=== PATIENT | female | born 1990 | race Caucasian/White ===

== ENCOUNTER 2016-05-09 18:28 | Outpatient (CLI) | payer MEDICAID ==
[~2016-05-09] VITALS: Ht 157.5 cm; Wt 72.6 kg
[~2016-05-09 18:28] MED LIST: BUPROPION HCL300 MG PO; CLONAZEPAM 1MG T1 MG PO; IRON90 MG PO; KEFLEX 500MG.500 MG PO; KLONOPIN1 MG PO; NORCO 325 MG-51 TAB PO; PERCOCET 5/3251 EACH PO; PERCOCET1 TA1 PO; PERCOCET1 TAB PO; PHENERGAN25 M3 PO; PRENATAL PLUS1 TA1 PO; WELLBUTRIN 100100 M1 PO; WELLBUTRIN SR100 MG PO; ZOLOFT100 MG PO
[2016-05-09 18:42] VITALS: BP 114/75
[2016-05-16] MEDS ORDERED: PHENERGAN25 M3 PO (17:20)
[2016-05-16] MEDS ORDERED: FLEXERIL10 MG PO (23:07)
[2016-05-16] MEDS ORDERED: PREDNISONE 20MG20 MG PO (23:07)
[2016-05-16] MEDS ORDERED: NORCO 325 MG-51 TAB PO (23:07)
== END 2016-05-09 18:53 | disposition home or self-care (01) ==
LOC: OB 18:28 → OBOUT 18:28
DX: O26.893 Other specified pregnancy related conditions, third trimester (principal); Z3A.30 30 weeks gestation of pregnancy; R10.31 Right lower quadrant pain; N20.0 Calculus of kidney

== ENCOUNTER 2016-05-25 13:05 | Outpatient (CLI) | payer MEDICAID ==
[~2016-05-25] VITALS: Ht 162.6 cm; Wt 88.9 kg
[~2016-05-25 13:05] MED LIST changes: +FLEXERIL10 MG PO; +PREDNISONE 20MG20 MG PO
[2016-05-25 13:34] VITALS: BP 126/79
[2016-05-25 14:09] LABS: URINE BILIRUBIN - DIPSTICK NEGATIVE (NEG); URINE BLOOD 3+ (NEG)
--- NOTE | 2016-05-25 15:39 | HISTORY AND PHYSICAL REPORT ---
Demographics: Admit date: 05/25/16 Chief complaint: BACK PAIN PRIMARY DIAGNOSIS: IUP 33 2/7 WEEKS (SUSPECTED RENAL CALCULI) Allergies: Coded Allergies: Penicillins (S-DIFF. BREATHING 03/03/16) lamotrigine (From LAMICTAL) (02/18/16) morphine (02/18/16) History of present illness: History of present illness: 25 Y/O WITH LMP 10/10/15 WITH EDC 07/11/2016 @ 33 4/7WKS PRESENTS TO L&D WITH C/O RIGHT SIDED BACK PAIN. PT STATES SHE HAS AN EXTENSIVE H/O KIDNEY STONES. STATES SHE HAS AN H/O ENLARGED RIGHT KIDNEY. STATES SHE'S UNSUREIF THIS CURRENT PAIN SHE'S HAVING IS CONTRACTIONS VS KIDNEY PAIN. PT STATES SHE PASSED A STONE ABOUT 2WEEKS AGO. PT NOTES GOOD FM WITHOUT VB. LAST INTERCOURSE 2 DAYS AGO. Past medical history: Family HX Family Hx Insignificant Yes Immunization HX DT/Tetanus Unknown Flu 2015-FSN Pneumonia Refuses General CAD? No Angina: No OR: No Hypertension? No Hyperlipidemia? No CHF? No DVT? No PE? No COPD? No Asthma? No Anemia? No GERD? No Gastric ulcers? No GI Bleed? No Hernia? No Thyroid Problems? No Hypothyroidism? No CVA? No Seizures? No Diabetes? No Renal Insuffiency? No UTI? Yes Stones? Yes BPH? No GB Disease: No Nephritic Syndrome? No Asplenia? No Hepatitis? No Sickle Cell Disease? No Arthritis? No Migraines? No Cataracts? No Glaucoma? No MRSA? No HIV? No TB? No Anxiety? No Depression? No Cancer? No More? No Past Surgical HX Previous Surgery?Y LITHOTRIPSY X2 LEFT PARTIAL KNEE T&A Current home meds: Active Scripts PROMETHAZINE HCL (Phenergan 25MG Tab (Geq)) 25 MG PO Q6HP PRN N/V #15 TAB Prov: 05/16/16 Reported Medications IRON (Iron) 18 MG PO DAILY SERTRALINE HYDROCHLORIDE (Zoloft 100MG) 200 MG PO DAILY Clonazepam (Clonazepam 1MG) 1 MG PO DAILY BUPROPION HCL SR (Wellbutrin SR 100MG) 100 MG PO DAILY MULTIVIT-MIN W/FE-FA ( Multivitamin Tablet) 1 TAB PO DAILY Social Hx: Smoking HX Tobacco No Alcohol Alcohol: No Hx of Drug Use Drug Use? No Patien't marital status is Patient's support system is good Review of systems: Constitutional No: no symptoms reported. Respiratory No: no symptoms reported. Cardiovascular No no symptoms reported Gastrointestinal/Abdominal No no symptoms reported Genitourinary dysuria, hematuria, pain, pelvic pain, . No: discharge, abnormal vaginal bleeding, vaginal discharge, frequency, hesitancy, dyspareunia, hx stds, labia tenderness. Musculoskeletal back pain. No: gout, joint pain, joint swelling, muscle pain, muscle stiffness, neck pain. Skin No: no symptoms reported. Neurological No: see HPI. Psychiatric No: no symptoms reported. Exam: Lab data for last 24 hours: Laboratory Tests 05/25/16 1312: Urine Color ORANGE, Urine Appearance CLOUDY, Urine pH 6.0, Ur Specific [place] 1.010, Urine Protein NEGATIVE, Urine Ketones NEGATIVE, Urine Blood 3+ H, Urine Nitrate NEGATIVE, Urine Bilirubin NEGATIVE, Urine Urobilinogen 0.2, Ur Leukocyte Esterase NEGATIVE, Urine RBC 20-50, Ur Squamous Epith Cells 3-5, Urine Bacteria 2+, Urine Glucose NEGATIVE Microbiology 05/25 1312 URINE CC: Urine Culture - RECD Admission vital signs: 1ST Vital Signs Result Date Time B/P 126/79 05/25 1334 Temp 98.6 05/25 1334 Pulse 103 05/25 1334 Resp 18 05/25 1334 Exam General appearance: normal appearance Eyes: normal exam Cardiovascular: normal exam Respiratory: normal exam ABD: normal exam Genitourinary: hematuria, urine cloudy, urine concentrated Extremities: normal exam Musculoskeletal: back pain (+CVAT) Skin: normal exam Neuro: normal exam Additional information: SSE/SVE: NO BLEEDING NOTED, CERVIX CLOSED/THICK/HIGH Plan: Problem List 1. 2. Hematuria 3. Renal colic on right side 4. Right flank pain 5. Kidney stone Plan: BACK PAIN WITH CVAT, I SUSPECT THIS IS RECURRENCE OF PT'S RENAL CALCULI. RENAL U /S BEING PERFORMED/RESULTS PENDING. IV HYDRATION. PAIN MANAGMENT. I WOULD RECOMMEND REFERRAL TO UROLOGIST. PT MAY BENEFIT FROM STENT PLACEMENT? 33 4/7WKS-CAT I TRACING, ACONTRACTILE, NO EVIDENCE OF PTL at [phone]
[2016-05-25 16:08] LABS: HEMOGLOBIN 12.3 g/dL (12.2-16.2); LYMPH # 2.3 K/mm3 (0.7-4.5); LYMPH % 17.3 % (10-50.0)
[2016-05-25 17:05] LABS: ABO BLOOD TYPE O; RH BLOOD TYPE NEGATIVE
--- NOTE | 2016-05-28 08:15 | RADIOLOGY REPORT PS360 ---
US [id number] ORDERING PHYSICIAN : ROLANDO ZARATE MD PATIENT AGE: 25 years GENDER: Female INDICATION: KIDNEY DTONE Patient 34 weeks right flank pain. HISTORY of stones TECHNIQUE: Ultrasound kidneysBH COMPARISON: Previous ultrasound kidneys 03/31/2016 FINDINGS Right kidney: Normal size 12 cm in length x 5.8 cm AP. Cortex well-maintained. Prominent hydronephrosis at right kidney with generous dilatation of right pelvicalyceal system right renal pelvis. Similar to previous study Proximal most right ureter is included and dilated as well. The mid and distal ureter were not imaged or could not be imaged . The degree of hydronephrosis is similar to images from previous 03/31/2016 ultrasound kidneys. Stable Left kidney. Appears normal. No hydronephrosis. 10.9 cm in length x 4.8 cm.. Good color Doppler flow both kidneys. Limited imaging of the spleen is unremarkable. IMPRESSION: .. Hydronephrosis of the right kidney is again noted- similar to 04/30/2016.. No appreciable change
--- NOTE | 2016-05-28 08:25 | RADIOLOGY REPORT PS360 ---
US PREG [id number], US BIOPHYSICAL PROFILE, SD RATIO UMBILICAL ARTERY INDICATION: KIDNEY DTONE TECHNIQUE: ultrasound transabdominal scanning/ BH COMPARISON: No previous relevant studies FINDINGS Single viable intrauterine gestation. Cephalic position. Low-lying anterior placenta anterior. No previa. No abruption The cervix appears measures up to 3.5 cm in length The study was primarily performed for placental localization and biophysical profile Only Limited survey performed & was unremarkable per technologist notes. & on the submitted images as in PACS No discrete anomalies identified today's limited survey imaging by technologist Active fetus. Three-vessel cord with satisfactory umbilical cord insertion. Stomach and bladder identified. 4 chamber heart identified . date measurements not performed, but this and detailed survey performed on a 03/11/2006, for the 20 week anatomy scan Heart rate 149 BIOPHYSICAL PROFILE 8 of possible 8 points. +2 scoring for each category: breathing, movement, tone, fluid volume. SD RATIO 2.6 . IMPRESSION: Single viable intrauterine gestation in cephalic presentation Anterior placenta no previa . Active fetus with biophysical profile 8 of possible 8 points..
== END 2016-05-25 18:25 | disposition home or self-care (01) ==
LOC: OB 13:05 → OBOUT 13:05 → OB 13:06 → OBOUT 18:25
PROVIDERS: Obstetrics & Gynecology
DX: O47.03 False labor before 37 completed weeks of gestation, third trimester (principal); Z3A.32 32 weeks gestation of pregnancy
CPT/HCPCS: J2405

== ENCOUNTER 2016-08-30 18:15 | Emergency (ER) | payer MEDICAID ==
[~2016-08-30] VITALS: Ht 162.6 cm; Wt 79.4 kg
[~2016-08-30 18:15] MED LIST changes: +CIPRO 500MG TA500 MG PO
--- NOTE | 2016-08-30 18:21 | Emergency Room Report ---
History of Present Illness Time Seen by [id number] Presenting Problem in Triage Pt arrived: Presenting Problem: Onset of symptoms date/time:/ or onset unknown for: Treatment Prior to Arrival: OPTOMETRIC AIDE Provided by: Sepsis Risk Assessment: Temp: B/P: MAP: Pulse: Resp: Recent fever? Clinical Suspician of Infection? Mental Status: Sepsis Risk: Have you (or family members/close friends) recently traveled outside the [place]? If Yes, where/when: Have you had exposure to infectious disease within the past month? TB? Other? Specify: Source patient, RN notes reviewed Exam Limitations no limitations Comment Pt comes to the ED with a history of kidney stones and says she has right flank pain. I will check her urine here and blood work to make sure her kidney function is normal and if it is, I will give her a shot of medicine for pain and nausea but she will have to go someplace else to be evaluated with a CT scan as our CT scanner is not available at this time and will not be up and running until later tomorrow She was treated for a UTI here last week and a CT scan at that time looked like she may have passed a kidney stone... CT showed a mildly dilated right ureter but no visible stones in kidneys or bladder at that time. Cardiac Chest Pain Chest pain indicative of cardiac No ALLERGIES Coded Allergies: Penicillins (S-DIFF. BREATHING 03/03/16) lamotrigine (From LAMICTAL) (02/18/16) morphine (02/18/16) Home Medications Active Scripts Ciprofloxacin HCl (Cipro 500MG TAB) 500 MG PO BID #14 TAB Prov: 08/25/16 Reported Medications SERTRALINE HYDROCHLORIDE (Zoloft 100MG) 200 MG PO DAILY Clonazepam (Clonazepam 1MG) 1 MG PO DAILY BUPROPION HCL SR (Wellbutrin SR 100MG) 100 MG PO DAILY (Cullen ZHAO,Alisa) History Medical History General CAD? No Angina: No ND: No Hypertension? No Hyperlipidemia? No CHF? No DVT? No PE? No COPD? No Asthma? No Anemia? No GERD? No Gastric ulcers? No GI Bleed? No Hernia? No Thyroid Problems? No Hypothyroidism? No CVA? No Seizures? No Diabetes? No Renal Insuffiency? No End Stage Renal Disease? No UTI? Yes Stones? Yes BPH? No GB Disease: No Nephritic Syndrome? No Asplenia? No Hepatitis? No Sickle Cell Disease? No Arthritis? No Migraines? No Cataracts? No Glaucoma? No MRSA? No HIV? No TB? No Anxiety? No Depression? No Cancer? No More? No Immunization Hx DT/Tetanus Unknown Flu 2016-FSN Pneumonia Refuses Surgical Hx Previous Surgery?Y LITHOTRIPSY X2 LEFT PARTIAL KNEE T&A Family History Family Hx Diabetes No CAD No Hypertension No Hyperlipidemia No Cancer No TB No Social History Smoking Hx Packs/day N/A Alcohol Alcohol: No (Alisa Berman MD) Review of Systems All Other Systems Reviewed and Negative Constitutional see HPI Respiratory denies no symptoms reported, denies see HPI Genitourinary see HPI. (Alisa Berman MD) Physical Exam Vital Signs Vital Signs Date Time Temp Pulse Resp B/P Pulse O2 O2 Flow FiO2 Ox Delivery Rate 08/30 2101 69 18 134/67 100 08/30 2042 98.7 94 18 136/73 96 08/30 1945 99.1 126 24 170/109 96 08/30 1927 20 08/30 1820 99.1 100 18 151/84 98 - WBC >12,000 or <4,000 or 10% bands? 2 or more SIRS Criteria Met? B/P:151/84 MAP:106 Creatinine >2.0? UA output<0.5ml/kg/hr for 2 hrs? Platelet count >100,000? Lactate >2.0mmol/1? INR >1.2 or PTT > than 60 sec? Evidence of Organ Dysfunction? Provider documented clinical suspician of infection? N Sepsis Criteria Count: 1 Sepsis Risk: Low Sepsis Risk General Appearance moderate distress, has been "crying" in the room but no tears at all Respiratory Status No: respiratory distress. Cardiovascular normal exam Peripheral Pulses Pulses normal No Back right flank pain Neurologic alert, normal exam (Alisa Berman MD) Medical Decision Making LABS/Meds/Orders Pt receiving controlled substance in ED? No Adrien was queried for this patient? Yes Reference #: [id number] Results/Orders Laboratory Tests 08/30/16 1915: Sodium 139, Potassium 3.7, Chloride 105, Carbon Dioxide 23, BUN 17, Creatinine 1.1 H, Estimated Creat Clear 97, Estimated GFR (MDRD) 60, Glucose 95, Calcium 8.8, Total Bilirubin 0.3, AST 22, ALT 34, Alkaline Phosphatase 82, Total Protein 8.2, Albumin 3.8, Globulin 4.4 H, Albumin/Globulin Ratio 0.9 L, WBC 9.6, RBC 3.96 L, Hgb 10.8 L, Hct 34.5 L, MCV 87.0, RDW 16.1, Plt Count 343, MPV 5.9 L , Gran % 72.0, Gran # 6.9, Lymphocytes % 20.9, Monocytes % 4.9, Eosinophils % 1.8, Basophils % 0.4, Lymphocytes # 2.0, Monocytes # 0.5, Eosinophils # 0.2, Basophils # 0.0, PUBS MCHC 31.3 L, MCH 27.2 08/30/161824: Opiates Screen NEGATIVE, Urine Methadone Screen NEGATIVE, Barbiturates NEGATIVE, Phencyclidine Screen NEGATIVE, Amphetamines Screen NEGATIVE, Benzodiazepines Screen POSITIVE H, Cocaine Screen NEGATIVE, Marijuana (THC) Screen NEGATIVE, Urine Color RED, Urine Appearance CLOUDY, Urine pH 6.0, Ur Specific [place] 1.025, Urine Protein TRACE H, Urine Ketones NEGATIVE, Urine Blood 3+ H, Urine Nitrate NEGATIVE, Urine Bilirubin NEGATIVE, Urine Urobilinogen 0.2, Ur Leukocyte Esterase NEGATIVE, Urine RBC TNTC, Ur Squamous Epith Cells 5-10, Urine Glucose NEGATIVE Current Medication Orders Sig/Emerald Start time Last Medication Dose Route Stop Time Status Admin Ondansetron HCl 4 MG ONCE ONE 08/30 1930 DC 08/30 SL 08/30 Ketorolac 0 .STK-MED ONE 08/30 1924 DC Tromethamine .ROUTE Ondansetron HCl 0 .STK-MED ONE 08/31 1923 DC .ROUTE Ketorolac 30 MG ONCE ONE 08/30 190 DC 08/30 Tromethamine IM 08/30 Ondansetron HCl 4 MG ONCE ONE 08/30 1900 CAN IV 08/30 1900 Orders Procedure Date/time Status KUB (SINGLE VIEW) 08/30 1924 Active DRUG ABUSE SCREEN (10) 08/30 1837 Complete CBC WITH AUTO DIFF 08/30 1837 Complete CHEM 12 PROFILE 08/30 1837 Complete URINALYSIS/COMPLETE 08/30 183 Complete URINE 08/31 1831 Complete Progress - 9:00 PM: The patient signed out AGAINST MEDICAL ADVICE while Dr. Berman was still here and he handled the disposition. I did not see the patient and was not involved in her care. (Jay Alonso MD) Departure Departure Time of Disposition 1942 Clinical Impression Primary Impression: Right flank pain Secondary Impressions: Hematuria Condition STABLE Referrals Mulugeta Lambert MD (Family): 2 Days-Call Office Patient Instructions Blood in Urine, DI for Flank Pain, DI for Hematuria Additional Instructions Pt advised that I can not see a stone on her KUB and I can not do a CT of the Abd and Pelvis as the CT scanner is down. I will call whichever facility she wishes to get a CT scan done there. She has decided she will go to [facility] to get a CT of Abd and Pelvis to rule out a stone. Will then be transferred back here for reading of the scan. She is agreeable to that will sign out to Dr Alonso Discharge Counseling Counseled pt/family regarding diagnosis, test results, follow up needs ED Critical Care Critical Care No If Critical Care minutes are documented, the time involved in the performance of seperately reportable procedures was not counted toward critical care time documented. I directly delivered medical care to this critically ill and/or injured patient. Timely evaluation and treatment was necessary to address the significant organ system(s) dysfunction present in this patient. (Alisa Berman MD) Departure Disposition Against Medical Advice (Jay Alonso MD) at 1949 at [id number]
[2016-08-30 18:37] LABS: URINE BILIRUBIN - DIPSTICK NEGATIVE (NEG); URINE BLOOD 3+ (NEG)
[2016-08-30 19:22] LABS: HEMOGLOBIN 10.8 g/dL (12.2-16.2); LYMPH % 20.9 % (10-50.0)
[2016-08-30 19:53] LABS: AMPHETAMINES/METAMPHETAMINES NEGATIVE ng/mL (<1000)
[2016-08-30 21:01] VITALS: BP 134/67
--- NOTE | 2016-08-31 12:19 | RADIOLOGY REPORT PS360 ---
KUB (SINGLE VIEW) Ordering Physician: Jay Alonso MD Patient Age: 25 years: Female HISTORY: right flank pain TECHNIQUE: KUB AP abdomen CT abdomen from last week 08/25/2016. FINDINGS Moderate stool is seen throughout the colon most prominent in generous stool is seen at the right colon which may reflect mild constipation here. Overall unimpressive abdomen with nonspecific bowel gas pattern. No renal or ureteral calculi. Phleboliths pelvic basin. IMPRESSION: No acute findings 1. Nonspecific bowel gas pattern. Only noting generous stool right colon 2. Phleboliths pelvic basin. No renal calculi evident
--- OUTSIDE RECORDS SUMMARY | 2016-09-01 01:22 | External Medical Summary Rpt ---
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 Unavailable Unavailable [place], [facility] Unavailable Unavailable [facility], [facility] CARUSO, CARUSO Unavailable Unavailable DANIELLE, DANIELLE Unavailable Unavailable BROWN MARICEL, CHRISTINE MARICEL Unavailable Unavailable FOY, FOY Unavailable Unavailable [place] Unavailable Unavailable NUNUNUNU MITCHELL Unavailable Unavailable [facility]available [facility] Unavailable Unavailable INC, [facility] HEMMER, HEMMER Unavailable Unavailable MARVIN WONG Unavailable Unavailable [facility] Unavailable Unavailable MEDICAL C, [facility], Unavailable Unavailable [facility] MOJICA, MOJICA Unavailable Unavailable [facility] Unavailable [facility]available [facility] Unavailable Unavailable [facility], [facility] BOWMAN, BOWMAN Unavailable Unavailable [facility], Unavailable Unavailable [facility], [facility] Unavailable Unavailable PLL[facility], [facility] ZULEMA KELVIN, ZULEMA Unavailable Unavailable [facility] Unavailable Unavailable [facility]PORAT, [facility] PETRONA, PETRONA Unavailable Unavailable SOTINGEANU, Unavailable Unavailable SOTINGEANU Purpose Continuity of Care Document - 03-22-2012 through 2016 Problems Code Diagnosis DOS Provider Status R300 DYSURIA 07-17-2016 [facility] Z391 ENCNTR FOR 07-17-2016 [facility] CARE & HEALTH EXAMINATION MEDICAL LACTATING GROUP MOTHER Z392 ENCOUNTER 07-17-2016 NONDENOMINATIONAL FOR ROUTINE HEALTH MEDICAL FOLLOW-UP GROUP O133 GESTATIONAL 06-25-2016 NONDENOMINATIONAL HTN W/O ANESTHESIA SIG PSC PROTEINURIA THIRD TRI O80 ENCOUNTER 06-25-2016 NONDENOMINATIONAL FOR ANESTHESIA FULL-TERM PSC UNCOMPLICAT ED DELIVERY Z370 SINGLE LIVE 06-25-2016 NONDENOMINATIONAL ANESTHESIA PSC O134 GESTATIONAL 06-24-2016 NONDENOMINATIONAL HTN W/O HEALTH SIGNIF [place] PROTEINURIA COMP CB [id number] MAT CARE 06-24-2016 NONDENOMINATIONAL OT HEALTH KNWN/SUSP MEDICAL POOR FTL GROUP GRTH 3RD TRI UNS O665 ATTEMPTED 06-24-2016 NONDENOMINATIONAL APPLICATION HEALTH VACUUM MEDICAL EXTRACTOR & GROUP FORCEPS [id number] L & D COMP 06-24-2016 NONDENOMINATIONAL CORD AROUND HEALTH NECK W/O [place] COMPRS NA/UNS Z2913 ENCOUNTER 06-24-2016 NONDENOMINATIONAL FOR HEALTH PROPHYLACTI [place] C RHO IMMUNE GLOBULIN Z3A36 36 WEEKS 06-24-2016 NONDENOMINATIONAL GESTATION HEALTH OF MEDICAL GROUP O163 UNSPECIFIED 06-20-2016 NONDENOMINATIONAL MATERNAL HEALTH HYPERTENSIO [place] N 3RD TRIMESTER L02857 OTHER SPEC 06-20-2016 [facility]ONDENOMINATIONAL HEALTH RELATED MEDICAL COND 3RD GROUP TRIMESTER O288 OTH 06-20-2016 NONDENOMINATIONAL ABNORMAL HEALTH FIND ON [place] SCREENING MOTHER [id number] MATERNAL 06-20-2016 NONDENOMINATIONAL CARE OT HEALTH SPEC MEDICAL PROB 3RD GROUP TRI NA/UNS G01086 PERSONAL 06-20-2016 NONDENOMINATIONAL HISTORY OF HEALTH URINARY [place] CALCULI Z3A35 35 WEEKS 06-17-2016 [facility] GROUP O289 UNS 06-13-2016 NONDENOMINATIONAL ABNORMAL HEALTH FIND ON [place] SCREENING MOTHER [id number] OLIGOHYDRAM 06-13-2016 NONDENOMINATIONAL NIOS THIRD HEALTH TRIMESTER MEDICAL NA/UNS GROUP E669 OBESITY 06-10-2016 NONDENOMINATIONAL UNSPECIFIED HEALTH MEDICAL GROUP Z3A34 34 WEEKS 06-10-2016 [facility]ENOMINATIONAL GESTATION HEALTH OF MEDICAL GROUP R109 UNSPECIFIED 06-05-2016 NONDENOMINATIONAL ABDOMINAL HEALTH PAIN MEDICAL GROUP Z3A33 33 WEEKS 06-03-2016 [facility]OM[facility]ATIONAL GESTATION [facility] OF MEDICAL GROUP O210 MILD 05-28-2016 NONDENOMINATIONAL HYPEREMESIS [facility]ALTH [facility] Z418 ENC OTH 05-28-2016 NONDENOMINATIONAL PROC HEALTH PURPOSES MEDICAL OTH THAN GROUP REMEDY HLTH STATE N1330 UNSPECIFIED 05-25-2016 [facility] HYDRONEPHRO [facility] SIS O4443 LOW LYING 05-25-2016 [facility] NOS/WO IMAGING ASS HEMORRHAGE 3RD TRIM O4703 FALSE LABOR 05-25-2016 [facility] CMPLETE INC WEEKS GEST 3RD TRI Z331 05-25-2016 [facility] INCIDENTAL IMAGING ASS Z3A32 32 WEEKS 05-25-2016 [facility] INC N23 UNSPECIFIED 05-16-2016 [facility] COLIC PLLC L70914 05-16-2016 [facility] RENAL [facility] DISEASE THIRD TRIMESTER [id number] STRAIN 05-16-2016 [facility] TENDON INC NECK LEVL INIT ENC [id number] STRAIN 05-16-2016 [facility] FASCIA & INC TENDON LOW BACK INITIAL [id number] UNSPECIFIED 05-16-2016 [facility] LEFT HIP INC INITIAL ENCOUNTER Z3480 ENC 05-15-2016 [facility] PHYSICIANS OTH NORMAL GROUP PREG UNS TRIMESTER N200 CALCULUS OF 05-09-2016 [facility] R1031 RIGHT LOWER 05-09-2016 [facility] PAIN INC Z3A30 30 WEEKS 05-09-2016 [facility] INC O9989 OT DZ & 05-08-2016 [facility], PREG PLLC CHILDBIRTH PUERPERIUM Z3483 ENC 05-08-2016 [facility]VISION [facility] OTH NORMAL INC 3 TRIMESTER Z3A31 31 WEEKS 05-08-2016 [facility], OF PLLC N132 HYDRONEPHRO 03-31-2016 [facility] SIS W/RENAL [facility] & URETRL INC CALCULOUS OBST H40916 OTHER SPEC 03-31-2016 [facility] RELATED INC COND 2ND TRIMESTER Z3A26 26 WEEKS 03-31-2016 [facility] INC [id number] MAT CARE 03-24-2016 [facility] KNWN/SUSP MEDICAL POOR FTL GROUP GRTH 2ND TRI UNS Z3A23 23 WEEKS 03-24-2016 [facility] OF MEDICAL GROUP E86683 SUPERVISION 03-21-2016 [facility] OT HIGH PHYSICIANS RISK PREG GROUP SECOND TRIMESTER Z3A21 21 WEEKS 03-21-2016 [facility] GESTATION PHYSICIANS OF GROUP O2692 03-20-2016 [facility], CONDITIONS PLLC UNS 2ND TRIMESTER Z3A24 24 WEEKS 03-20-2016 [facility] INC Z3201 ENCOUNTER 03-05-2016 [facility] TEST RESULT POSITIVE 42685 ABDOMINAL 07-05-2014 [place] OTHER REGIONAL SPECIFIED MEDICAL C SITE 59786 ABDOMINAL 05-09-2014 [facility] UNSPECIFIED PLLC SITE N20.0 CALCULUS OF KIDNEY N20.1 CALCULUS OF URETER N23 UNSPECIFIED RENAL COLIC N39.0 URINARY TRACT INFECTION, SITE NOT SPECIFIED R10.9 UNSPECIFIED ABDOMINAL PAIN R31.9 HEMATURIA, UNSPECIFIED Z33.1 STATE, INCIDENTAL Allergies, Adverse Reactions, Alerts Adverse Reaction to Substance Substance Reaction Severity NKA Clinical Alert Notifications Alert Member has >/= 3 hosp admit & >/= 1 ED visit in 365 days Medications Na ND Rx Da Fi Fi Am Da Di Ph RX Ph St me C No te ll ll ou ys ag ar # ys at rm s nt no ma ic us Or Da si cy ia de te s n re d NO 68 03 04 21 28 00 RI Ac RE 46 -2 -2 .0 00 TE ti TH 20 3- 8- 00 01 ve IN 13 20 20 17 AI D- 28 17 17 67 D ET 1 70 PH H AR ES MA TR CY AD #3 1- 93 0. 8 02 MG TE 51 03 04 20 3 00 RI Ac RC 67 -2 -2 .0 00 TE ti ON 21 3- 8- 00 01 ve AZ 30 20 20 17 AI OL 20 17 17 67 D E 0 68 PH 0. AR 8% MA CY CR EA #3 M 93 8 ZO 13 04 04 7. 7 00 RI Ac LP 66 -0 -2 00 00 TE ti ID 80 2- 8- 0 01 ve EM 00 20 20 17 AI 80 17 17 61 D TA 1 40 PH RT AR RA MA TE CY 10 #3 93 MG 8 TA BL ET BU 10 03 04 30 30 00 RI Ac AL 37 -3 -2 .0 00 TE ti OP 00 1- 8- 00 01 ve IO 10 20 20 17 AI N 20 17 17 79 D HC 3 41 PH L AR XL MA CY 30 0 #3 MG 93 8 TA BL ET SH 16 03 04 28 28 00 RI Ac AR 71 -1 -1 .0 00 TE ti OB 40 6- 4- 00 01 ve EL 44 20 20 17 AI 10 17 17 56 D 0. 4 04 PH 35 AR MA MG CY TA #3 BL 93 ET 8 ZO 13 03 04 7. 7 00 RI Ac LP 66 -2 -1 00 00 TE ti ID 80 0- 4- 0 01 ve EM 00 20 20 17 AI 80 17 17 61 D TA 1 40 PH RT AR RA MA TE CY 10 #3 93 MG 8 TA BL ET CL 16 03 04 90 30 00 RI Ac ON 72 -2 -1 .0 00 TE ti AZ 90 0- 4- 00 01 ve EP 13 20 20 17 AI AM 70 17 17 61 D 1 0 38 PH AR MG MA CY TA BL #3 ET 93 8 NI 00 03 04 14 7 00 RI Ac TR 18 -2 -1 .0 00 TE ti OF 50 0- 4- 00 01 ve UR 12 20 20 17 AI AN 20 17 17 60 D TO 1 68 PH IN AR MA MO CY NO -M #3 CR 93 8 10 0 MG CL 16 02 03 60 30 00 RI Ac ON 72 -2 -2 .0 00 TE ti AZ 90 6- 4- 00 00 ve EP 13 20 20 81 AI AM 70 17 17 21 D 1 0 16 PH AR MG MA CY TA BL #1 ET 60 7 SE 69 02 03 60 30 00 RI Ac RT 09 -2 -2 .0 00 TE ti RA 70 7- 4- 00 00 ve LI 83 20 20 81 AI NE 50 17 17 22 D 2 26 PH HC AR L MA 10 CY 0 MG #1 60 TA 7 BL ET OX 00 02 03 12 3 00 RI Ac YC 05 -2 -2 .0 00 TE ti OD 40 4- 4- 00 00 ve ON 55 20 20 18 AI E- 12 17 17 71 D AC 5 76 PH ET AR AM MA IN CY OP HE #7 N 89 5- 2 32 5 ZO 13 02 03 7. 7 00 RI Ac LP 66 -1 -1 00 00 TE ti ID 80 9- 7- 0 00 ve EM 00 20 20 81 AI 80 17 17 04 D TA 1 99 PH RT AR RA MA TE CY 10 #1 60 MG 7 TA BL ET CL 16 02 03 14 7 00 RI Ac ON 72 -1 -1 .0 00 TE ti AZ 90 9- 7- 00 00 ve EP 13 20 20 81 AI AM 70 17 17 05 D 1 0 00 PH AR MG MA CY TA BL #1 ET 60 7 CL 16 02 03 14 7 00 RI Ac ON 72 -1 -1 .0 00 TE ti AZ 90 3- 0- 00 00 ve EP 13 20 20 81 AI AM 70 17 17 05 D 1 0 00 PH AR MG MA CY TA BL #1 ET 60 7 ZO 13 02 03 7. 7 00 RI Ac LP 66 -1 -1 00 00 TE ti ID 80 3- 0- 0 00 ve EM 00 20 20 81 AI 80 17 17 04 D TA 1 99 PH RT AR RA MA TE CY 10 #1 60 MG 7 TA BL ET BU 10 02 03 30 30 00 RI Ac AL 37 -1 -1 .0 00 TE ti OP 00 4- 0- 00 00 ve IO 10 20 20 81 AI N 20 17 17 05 D HC 3 55 PH L AR XL MA CY 30 0 #1 MG 60 7 TA BL ET CL 16 02 03 14 7 00 RI Ac ON 72 -0 -0 .0 00 TE ti AZ 90 6- 3- 00 00 ve EP 13 20 20 80 AI AM 70 17 17 87 D 1 0 44 PH AR MG MA CY TA BL #1 ET 60 7 OX 00 01 02 30 5 00 RI Ac YC 05 -3 -2 .0 00 TE ti OD 40 1- 4- 00 00 ve ON 55 20 20 80 AI E- 12 17 17 87 D AC 5 46 PH ET AR AM MA IN CY OP HE #1 N 60 5- 7 32 5 CL 16 01 02 14 7 00 RI Ac ON 72 -3 -2 .0 00 TE ti AZ 90 1- 4- 00 00 ve EP 13 20 20 80 AI AM 70 17 17 87 D 1 0 44 PH AR MG MA CY TA BL #1 ET 60 7 AL 00 01 02 30 7 00 RI Ac OM 60 -3 -2 .0 00 TE ti ET 35 1- 4- 00 00 ve BOJORQUEZ 43 20 20 80 AI ZI 82 17 17 87 D NE 1 40 PH AR 25 MA CY MG #1 TA 60 BL 7 ET HY 00 01 02 [address] 40 -2 -1 .0 00 L- ti OC 60 5- 7- 00 02 MA ve OD 12 20 20 23 RT ON 40 17 17 88 -A 1 60 PH CE AR TA MA MS CY NO PH #5 91 7. 5- 32 5 ON 65 01 02 15 25 00 RI Ac DA 86 -2 -1 .0 00 TE ti NS 20 5- 7- 00 01 ve ET 39 20 20 16 AI RO 01 17 17 84 D N 0 61 PH OD AR T MA 4 CY MG #3 TA 93 BL 8 ET ZO 13 01 02 7. 7 00 RI Ac LP 66 -1 -1 00 00 TE ti ID 80 9- 7- 0 01 ve EM 00 20 20 16 AI 80 17 17 47 D TA 1 86 PH RT AR RA MA TE CY 10 #3 93 MG 8 TA BL ET CL 16 01 02 14 7 00 RI Ac ON 72 -2 -1 .0 00 TE ti AZ 90 5- 7- 00 01 ve EP 13 20 20 16 AI AM 70 17 17 71 D 1 0 62 PH AR MG MA CY TA BL #3 ET 93 8 YARITZA 58 01 02 0. 1 00 RI Ac OS 16 -2 -1 50 00 TE ti TR 00 4- 7- 0 01 ve IX 84 20 20 16 AI 25 17 17 83 D TD 2 09 PH AP AR MA VA CY CC IN #3 E 93 SY 8 RI NG E Results Labs Lab Lab Date Result Refere Interp Status Commen Order Detail nces retati t Range on HCV Ab Ser Ql (06-27-2016 15:47) HCV Ab 06-27-2 [id number] Non-[place] complet Ser 017 07 ctive ed Donr Ql 15:47 Non-[place] ctive SCT CBC W Diff pnl,unspecified Bld (06-27-2016 08:11) Imm 02-24-2 0.08 0.00-0. complet Granulo 017 10*3/mm 03 ed cytes # 08:11 3 Bld Basophi 24-2 0.01 0.00-0. complet ls # 017 10*3/mm 20 ed Bld 08:11 3 Auto Eosinop 24-2 0.12 0.10-0. complet hil # 017 10*3/mm 30 ed Bld 08:11 3 Auto Monocyt 24-2 0.92 0.00-1. complet es # 017 10*3/mm 00 ed Bld 08:11 3 Auto Lymphoc -24-2 3.87 0.60-4. complet ytes # 017 10*3/mm 80 ed Bld 08:11 3 Auto Neutrop 0224-2 9.30 1.50-8. complet hils # 017 10*3/mm 30 ed Bld 08:11 3 Auto Imm 0224-2 0.6 % 0.0-0.6 complet Granulo 017 ed cytes 08:11 NFr Bld Basophi 24-2 0.1 % 0.0-1.0 complet ls NFr 017 ed Bld 08:11 Auto Eosinop 24-2 0.8 % 0.0-3.0 complet hil NFr 017 ed Bld 08:11 Auto Monocyt 24-2 6.4 % 0.0-12. complet es NFr 017 0 ed Bld 08:11 Auto Lymphoc 24-2 27.1 % 24.0-44 complet ytes 017 .0 ed NFr Bld 08:11 Auto Neutrop 24-2 65.0 % 41.0-71 complet hils 017 .0 ed NFr Bld 08:11 Auto Platele 24-2 214 150-450 complet t # Bld 017 10*3/mm ed Auto 08:11 3 PMV Bld 06-27-2 10.9 fL 6.0-12. complet Auto 017 0 ed 08:11 RDW RBC 24-2 54.1 fl 37.0-54 complet Auto 017 .0 ed 08:11 RDW RBC 24-2 16.1 % 11.3-14 complet 017 .5 ed Auto-Rt 08:11 o MCHC 24-2 32.9 32.0-36 complet RBC 017 g/dL .0 ed Auto-mC 08:11 nc MCH RBC 06-27-2 30.4 pg 27.0-31 complet Qn 017 .0 ed Auto 08:11 MCV RBC 24-2 92.3 fL 80.0-99 complet Auto 017 .0 ed 08:11 Hct VFr 06-27-2 28.9 % 34.5-44 complet Bld 017 .0 ed Auto 08:11 Hgb 24-2 9.5 11.5-15 complet Bld-mCn 017 g/dL .5 ed c 08:11 RBC # 24-2 3.13 3.89-5. complet Bld 017 10*6/mm 14 ed Auto 08:11 3 WBC 24-2 14.30 3.50-10 complet nRBC 017 10*3/mm .80 ed cor # 08:11 3 Bld CBC W Diff pnl,unspecified Bld (06-26-2016 09:17) nRBC/10 06-26-2 0.0 0.0-0.0 complet 0 WBC 017 /100 ed Bld 09:17 WBC Manual- Rto Imm 02-23-2 0.03 0.00-0. complet Granulo 017 10*3/mm 03 ed cytes # 09:17 3 Bld Basophi 02-23-2 0.00 0.00-0. complet ls # 017 10*3/mm 20 ed Bld 09:17 3 Auto Eosinop 02-23-2 0.04 0.10-0. complet hil # 017 10*3/mm 30 ed Bld 09:17 3 Auto Monocyt 02-23-2 1.19 0.00-1. complet es # 017 10*3/mm 00 ed Bld 09:17 3 Auto Lymphoc 02-23-2 2.32 0.60-4. complet ytes # 017 10*3/mm 80 ed Bld 09:17 3 Auto Neutrop 02-23-2 11.04 1.50-8. complet hils # 017 10*3/mm 30 ed Bld 09:17 3 Auto Imm 02-23-2 0.2 % 0.0-0.6 complet Granulo 017 ed cytes 09:17 NFr Bld Basophi 02-23-2 0.0 % 0.0-1.0 complet ls NFr 017 ed Bld 09:17 Auto Eosinop 02-23-2 0.3 % 0.0-3.0 complet hil NFr 017 ed Bld 09:17 Auto Monocyt 02-23-2 8.1 % 0.0-12. complet es NFr 017 0 ed Bld 09:17 Auto Lymphoc 02-23-2 15.9 % 24.0-44 complet ytes 017 .0 ed NFr Bld 09:17 Auto Neutrop 02-23-2 75.5 % 41.0-71 complet hils 017 .0 ed NFr Bld 09:17 Auto Platele 02-23-2 181 150-450 complet t # Bld 017 10*3/mm ed Auto 09:17 3 PMV Bld 02-23-2 11.6 fL 6.0-12. complet Auto 017 0 ed 09:17 RDW RBC 02-23-2 53.1 fl 37.0-54 complet Auto 017 .0 ed 09:17 RDW RBC 02-23-2 15.8 % 11.3-14 complet 017 .5 ed Auto-Rt 09:17 o MCHC 02-23-2 32.8 32.0-36 complet RBC 017 g/dL .0 ed Auto-mC 09:17 nc MCH RBC 02-23-2 30.6 pg 27.0-31 complet Qn 017 .0 ed Auto 09:17 MCV RBC 02-23-2 93.2 fL 80.0-99 complet Auto 017 .0 ed 09:17 Hct VFr 02-23-2 25.9 % 34.5-44 complet Bld 017 .0 ed Auto 09:17 Hgb 02-23-2 8.5 11.5-15 complet Bld-mCn 017 g/dL .5 ed c 09:17 RBC # 02-23-2 2.78 3.89-5. complet Bld 017 10*6/mm 14 ed Auto 09:17 3 WBC 02-23-2 14.62 3.50-10 complet nRBC 017 10*3/mm .80 ed cor # 09:17 3 Bld CBC W Diff pnl,unspecified Bld (06-24-2016 10:55) WBC 02-21-2 10.32 3.50-10 complet nRBC 017 10*3/mm .80 ed cor # 10:55 3 Bld RBC # 02-21-2 3.64 3.89-5. complet Bld 017 10*6/mm 14 ed Auto 10:55 3 Hgb 02-21-2 11.2 11.5-15 complet Bld-mCn 017 g/dL .5 ed c 10:55 Hct VFr 02-21-2 33.6 % 34.5-44 complet Bld 017 .0 ed Auto 10:55 MCV RBC 02-21-2 92.3 fL 80.0-99 complet Auto 017 .0 ed 10:55 MCH RBC 02-21-2 30.8 pg 27.0-31 complet Qn 017 .0 ed Auto 10:55 MCHC 02-21-2 33.3 32.0-36 complet RBC 017 g/dL .0 ed Auto-mC 10:55 nc RDW RBC 02-21-2 15.6 % 11.3-14 complet 017 .5 ed Auto-Rt 10:55 o RDW RBC 02-21-2 51.8 fl 37.0-54 complet Auto 017 .0 ed 10:55 PMV Bld 02-21-2 11.6 fL 6.0-12. complet Auto 017 0 ed 10:55 Platele --2 225 150-450 complet t # Bld 017 10*3/mm ed Auto 10:55 3 Neutrop 02-21-2 66.3 % 41.0-71 complet hils 017 .0 ed NFr Bld 10:55 Auto Lymphoc 02-21-2 23.4 % 24.0-44 complet ytes 017 .0 ed NFr Bld 10:55 Auto Monocyt -21-2 9.4 % 0.0-12. complet es NFr 017 0 ed Bld 10:55 Auto Eosinop 02-21-2 0.3 % 0.0-3.0 complet hil NFr 017 ed Bld 10:55 Auto Basophi 02-21-2 0.2 % 0.0-1.0 complet ls NFr 017 ed Bld 10:55 Auto Imm -21-2 0.4 % 0.0-0.6 complet Granulo 017 ed cytes 10:55 NFr Bld Neutrop 21-2 6.85 1.50-8. complet hils # 017 10*3/mm 30 ed Bld 10:55 3 Auto Lymphoc -21-2 2.41 0.60-4. complet ytes # 017 10*3/mm 80 ed Bld 10:55 3 Auto Monocyt -21-2 0.97 0.00-1. complet es # 017 10*3/mm 00 ed Bld 10:55 3 Auto Eosinop -21-2 0.03 0.10-0. complet hil # 017 10*3/mm 30 ed Bld 10:55 3 Auto Basophi 02-21-2 0.02 0.00-0. complet ls # 017 10*3/mm 20 ed Bld 10:55 3 Auto Imm -21-2 0.04 0.00-0. complet Granulo 017 10*3/mm 03 ed cytes # 10:55 3 Bld Drugs Ur Scn (06-03-2016 14:44) PCP Ur [id number] Negativ complet Ql Scn 017 09 e ed 14:44 Negativ e SCT Cocaine [id number] Negativ complet Ur Ql 017 09 e ed 14:44 Negativ e SCT Ampheta [id number] Negativ complet mines 017 09 e ed Ur Ql 14:44 Negativ e SCT Opiates [id number] Negativ complet Ur Ql 017 09 e ed 14:44 Negativ e SCT Amphet+ [id number] Negativ complet Methamp 017 09 e ed het Ur 14:44 Negativ Ql e SCT Benzodi [id number] Negativ complet az Ur 017 09 e ed Ql Scn 14:44 Negativ e SCT Tricycl [id number] Negativ complet ics Ur 017 09 e ed Ql Scn 14:44 Negativ e SCT Methado [id number] Negativ complet ne Ur 017 09 e ed Ql Scn 14:44 Negativ e SCT Barbitu [id number] Negativ complet rates 017 09 e ed Ur Ql 14:44 Negativ Scn e SCT Oxycodo [id number] Negativ complet ne Ur 017 09 e ed Ql Scn 14:44 Negativ e SCT Propoxy [id number] Negativ complet ph Ur 017 09 e ed Ql 14:44 Negativ e SCT Bupreno [id number] Negativ complet rphine 017 09 e ed SerPl-m 14:44 Negativ Cnc e SCT Cannabi [id number] Negativ complet noids 017 09 e ed SerPl 14:44 Negativ Ql e SCT Comp Metab 1998 Pnl SerPl (06-02-2016 16:50) Glucose 79 70-100 complet 017 mg/dL ed Bld-mCn 16:50 c BUN 12 9-23 complet Bld-mCn 017 mg/dL ed c 16:50 Creat 0.70 0.60-1. complet Bld-mCn 017 mg/dL 30 ed c 16:50 Sodium 135 132-146 complet Bld-sCn 017 mmol/L ed c 16:50 Potassi 3.8 3.5-5.5 complet um 017 mmol/L ed Bld-sCn 16:50 c Chlorid 103 99-109 complet e 017 mmol/L ed SerPl-s 16:50 Cnc CO2 22.0 20.0-31 complet SerPl-s 017 mmol/L .0 ed Cnc 16:50 Calcium 9.9 8.7-10. complet 017 mg/dL 4 ed XXX-sCn 16:50 c Prot 7.0 5.7-8.2 complet SerPl-m 017 g/dL ed Cnc 16:50 Albumin 4.00 3.20-4. complet 017 g/dL 80 ed SerPl-m 16:50 Cnc ALT 12 U/L 7-40 complet SerPl w 017 ed 16:50 P-5'-P- cCnc AST 18 U/L 0-33 complet SerPl-c 017 ed Cnc 16:50 ALP 112 U/L 25-100 complet SerPl-c 017 ed Cnc 16:50 Bilirub 0.3 0.3-1.2 complet 017 mg/dL ed SerPl-m 16:50 Cnc GFR/BSA 101 >60 complet .pred 017 mL/min/ ed SerPl 16:50 1.73 MDRD-Ar VRat Globuli 3.0 complet n Ur 017 gm/dL ed Elph-mC 16:50 nc Albumin 1.3 1.5-2.5 complet /Glob 017 g/dL ed SerPl 16:50 BUN/Cre 17.1 7.0-25. complet at 017 0 ed SerPl 16:50 Anion 10.0 3.0-11. complet Gap3 017 mmol/L 0 ed SerPl-s 16:50 Cnc CBC (hemogram) Bld Auto (06-02-2016 16:50) WBC 9.59 3.50-10 complet nRBC 017 10*3/mm .80 ed cor # 16:50 3 Bld RBC # 06-02-2 3.98 3.89-5. complet Bld 017 10*6/mm 14 ed Auto 16:50 3 Hgb 2 12.4 11.5-15 complet Bld-mCn 017 g/dL .5 ed c 16:50 Hct VFr 36.9 % 34.5-44 complet Bld 017 .0 ed Auto 16:50 MCV RBC 92.7 fL 80.0-99 complet Auto 017 .0 ed 16:50 MCH RBC 31.2 pg 27.0-31 complet Qn 017 .0 ed Auto 16:50 MCHC 33.6 32.0-36 complet RBC 017 g/dL .0 ed Auto-mC 16:50 nc RDW RBC 14.4 % 11.3-14 complet 017 .5 ed Auto-Rt 16:50 o RDW RBC 48.8 fl 37.0-54 complet Auto 017 .0 ed 16:50 PMV Bld 12.4 fL 6.0-12. complet Auto 017 0 ed 16:50 Platele 253 150-450 complet t # Bld 017 10*3/mm ed Auto 16:50 3 UA Dipstick Pnl Ur (01-28-2016 19:47) Color [id number] Yellow, complet Ur 016 09 Straw ed 19:47 Yellow color SCT Clarity [id number] Clear complet Ur 016 01 ed 19:47 Clear SCT pH Ur 5.5 5.0-8.0 complet Strip.a 016 ed uto 19:47 Sp Gr 1.015 1.005-1 complet Ur 016 .030 ed Strip 19:47 Glucose [id number] Negativ complet Ur 016 09 e ed Strip-m 19:47 Negativ Cnc e SCT Ketones [id number] Negativ complet Ur Ql 016 06 e ed Strip 19:47 Trace SCT Bilirub [id number] Negativ complet Ur Ql 016 09 e ed Strip 19:47 Negativ e SCT Hgb Ur [id number] Negativ complet Ql 016 09 e ed Strip.a 19:47 Negativ uto e SCT Prot Ur [id number] Negativ complet Ql 016 09 e ed Strip 19:47 Negativ e SCT Leukocy [id number] Negativ complet te 016 09 e ed esteras 19:47 Negativ e Ur Ql e SCT Strip.a uto Nitrite [id number] Negativ complet Ur Ql 016 09 e ed Strip 19:47 Negativ e SCT Urobili 0.2 0.2 complet nogen 016 E.U./dL E.U./dL ed Ur Ql 19:47 , 1.0 Strip E.U./dL Comp Metab 1998 Pnl SerPl (01-28-2016 19:07) Glucose 77 70-100 complet 016 mg/dL ed Bld-mCn 19:07 c BUN 9 mg/dL 9-23 complet Bld-mCn 016 ed c 19:07 Creat 0.60 0.60-1. complet Bld-mCn 016 mg/dL 30 ed c 19:07 Sodium 136 132-146 complet Bld-sCn 016 mmol/L ed c 19:07 Potassi 3.8 3.5-5.5 complet um 016 mmol/L ed Bld-sCn 19:07 c Chlorid 105 99-109 complet e 016 mmol/L ed SerPl-s 19:07 Cnc CO2 24.0 20.0-31 complet SerPl-s 016 mmol/L .0 ed Cnc 19:07 Calcium 9.0 8.7-10. complet 016 mg/dL 4 ed XXX-sCn 19:07 c Prot 7.1 5.7-8.2 complet SerPl-m 016 g/dL ed Cnc 19:07 Albumin 4.00 3.20-4. complet 016 g/dL 80 ed SerPl-m 19:07 Cnc ALT 15 U/L 7-40 complet SerPl w 016 ed 19:07 P-5'-P- cCnc AST 21 U/L 0-33 complet SerPl-c 016 ed Cnc 19:07 ALP 64 U/L 25-100 complet SerPl-c 016 ed Cnc 19:07 Bilirub 0.2 0.3-1.2 complet 016 mg/dL ed SerPl-m 19:07 Cnc GFR/BSA 121 >60 complet .pred 016 mL/min/ ed SerPl 19:07 1.73 MDRD-Ar VRat Globuli 3.1 complet n Ur 016 gm/dL ed Elph-mC 19:07 nc Albumin 1.3 complet /Glob 016 g/dL ed SerPl 19:07 BUN/Cre 15.0 7.0-25. complet at 016 0 ed SerPl 19:07 Anion 7.0 3.0-11. complet Gap3 016 mmol/L 0 ed SerPl-s 19:07 Cnc CBC (hemogram) Bld Auto (01-28-2016 18:28) WBC 10.79 3.50-10 complet nRBC 016 10*3/mm .80 ed cor # 18:28 3 Bld RBC # 3.85 3.89-5. complet Bld 016 10*6/mm 14 ed Auto 18:28 3 Hgb 12.1 11.5-15 complet Bld-mCn 016 g/dL .5 ed c 18:28 Hct VFr 35.8 % 34.5-44 complet Bld 016 .0 ed Auto 18:28 MCV RBC 93.0 fL 80.0-99 complet Auto 016 .0 ed 18:28 MCH RBC 31.4 pg 27.0-31 complet Qn 016 .0 ed Auto 18:28 MCHC 33.8 32.0-36 complet RBC 016 g/dL .0 ed Auto-mC 18:28 nc RDW RBC 13.7 % 11.3-14 complet 016 .5 ed Auto-Rt 18:28 o RDW RBC 01-27- 46.4 fl 37.0-54 complet Auto 016 .0 ed 18:28 PMV Bld 10.7 fL 6.0-12. complet Auto 016 0 ed 18:28 Platele 281 150-450 complet t # Bld 016 10*3/mm ed Auto 18:28 3 UA Dipstick Pnl Ur (01-28-2016 17:44) Color [id number] Yellow, complet Ur 016 00 Red Straw ed 17:44 color SCT Clarity [id number] Clear complet Ur 016 02 ed 17:44 Turbid SCT pH Ur <= 5.0 5.0-8.0 complet Strip.a 016 ed uto 17:44 Sp Gr >= 1.005-1 complet Ur 016 1.030 .030 ed Strip 17:44 Glucose [id number] Negativ complet Ur 016 09 e ed Strip-m 17:44 Negativ Cnc e SCT Ketones [id number] Negativ complet Ur Ql 016 09 e ed Strip 17:44 Negativ e SCT Bilirub [id number] Negativ complet Ur Ql 016 09 e ed Strip 17:44 Negativ e SCT Hgb Ur [id number] Negativ complet Ql 016 01 e ed Strip.a 17:44 Large uto SCT Prot Ur 30 Negativ complet Ql 016 mg/dL e ed Strip 17:44 (1+) Leukocy [id number] Negativ complet te 016 09 e ed esteras 17:44 Negativ e Ur Ql e SCT Strip.a uto Nitrite [id number] Negativ complet Ur Ql 016 09 e ed Strip 17:44 Negativ e SCT Urobili 0.2 0.2 complet nogen 016 E.U./dL E.U./dL ed Ur Ql 17:44 , 1.0 Strip E.U./dL UA Microscopic Pnl # Ur Auto (01-28-2016 17:44) Squamou 13-20 None complet s 016 /HPF Seen, ed #/area 17:44 0-2 UrnS HPF Ref lab Manual complet test 016 Light ed method 17:44 Microsc opy Bacteria Ur Cult (01-28-2016 17:44) Bacteri No complet a XXX 016 growth ed Aerobe 17:44 at 2 Cult days URINE HCG (05-09-2014 21:41) URINE NEGATIV complet HCG 015 E ed 21:41 URINALYSIS COMPLETE (05-09-2014 21:41) COLOR 05-09- YELLOW complet 015 ed 21:41 CLARITY CLEAR complet 015 ed 21:41 GLUCOSE 2 NEGATIV NEGATIV complet 015 E MG/DL E ed 21:41 BILIRUB 2 NEGATIV NEGATIV complet IN 015 E E ed 21:41 KETONE NEGATIV NEGATIV complet 015 E MG/DL E ed 21:41 SPECIFI 1.018 1.006-1 complet C 015 .035 ed GRAVITY 21:41 BLOOD NEGATIV NEGATIV complet 015 E E ed 21:41 PH 5.5 5.0-9.0 complet 015 ed 21:41 PROTEIN 2 NEGATIV NEGATIV complet 015 E MG/DL E ed 21:41 UROBILI 2 0.2 0.2-1.0 complet NOGEN 015 E.U./DL ed 21:41 NITRITE 2 NEGATIV NEGATIV complet 015 E E ed 21:41 LEUKOCY 2 NEGATIV NEGATIV complet ROBERT 015 E E ed 21:41 RBC 05-09-2 1 /HPF 0-4 complet COUNT 015 ed 21:41 WBC 06-2 0 /HPF 0-5 complet COUNT 015 ed 21:41 EPITHEL 05-09-2 3 /HPF 0-6 complet IAL 015 ed CELL 21:41 COUNT BACTERI 2 NEGATIV NEGATIV complet A COUNT 015 E /HPF E ed 21:41 HYALINE 05-09-2 2 /LPF 0-4 complet CAST 015 ed 21:41 CBC\\T\\AUTO DIFF (05-09-2014 21:40) RBC 05-09-2 4.490 3.450-5 complet 015 M/ul .400 ed 21:40 HGB 14.3 10.0-16 complet 015 gm/dl .0 ed 21:40 HCT 42.7 % 29.9-45 complet 015 .5 ed 21:40 MCV 95.2 fl 78.2-10 complet 015 1.8 ed 21:40 MCH 2 31.8 pg 26.4-33 complet 015 .3 ed 21:40 MCHC 33.4 32.5-35 complet 015 g/dl .3 ed 21:40 RDW 2 14.2 % 10.1-16 complet 015 .2 ed 21:40 PLATELE 274 122-454 complet T 015 K/UL ed 21:40 MPV 8.9 fl 6.4-10. complet 015 4 ed 21:40 NEUTROP 59.6 % 43.0-83 complet HILS% 015 .0 ed 21:40 LYMPH% 34.3 % 10.0-42 complet 015 .0 ed 21:40 MONOS% 05-09-2 5.2 % 1.0-14. complet 015 0 ed 21:40 EOS% 05-09-2 0.7 % 0.0-11. complet 015 0 ed 21:40 BASO% 05-09-2 0.2 % 0.0-2.0 complet 015 ed 21:40 NEUT # -06-2 5.1 2.7-6.9 complet 015 K/ul ed 21:40 LYMPH# -06-2 2.9 0.4-3.9 complet 015 K/ul ed 21:40 MONOS# -06-2 0.4 0.2-0.6 complet 015 K/ul ed 21:40 EOS# -06-2 0.1 0.0-0.9 complet 015 K/ul ed 21:40 BASO# -06-2 0.0 0.0-0.2 complet 015 K/ul ed 21:40 WBC 05-09-2 8.6 3.0-11. complet 015 K/UL 3 ed 21:40 AMYLASE (05-09-2014 21:40) AMYLASE 70 U/L 25-115 complet 015 ed 21:40 LIPASE (05-09-2014 21:40) LIPASE 80 U/L 73-393 complet 015 ed 21:40 COMP. METABOLIC PANEL (CHEM 12) (05-09-2014 21:40) GLUCOSE 87 70-110 complet 015 MG/DL ed 21:40 BUN 2 14 7-18 complet 015 MG/DL ed 21:40 SODIUM 133 133-144 complet 015 mmol/L ed 21:40 POTASSI 4.0 3.6-5.2 complet UM 015 mmol/l ed 21:40 CHLORID 103 98-107 complet E 015 mmol/l ed 21:40 CO2 2 26 21-32 complet 015 mmol/L ed 21:40 CREATIN 2 0.6 0.6-1.3 complet INE 015 MG/DL ed 21:40 PROTEIN 2 8.4 6.4-8.4 complet , TOTAL 015 G/DL ed 21:40 ALBUMIN 4.1 3.4-5.0 complet 015 G/DL ed 21:40 GLOBULI 4.3 2.4-4.8 complet N 015 G/DL ed 21:40 A/G 1.0 0.6-1.6 complet RATIO 015 ed 21:40 CALCIUM 8.9 8.5-10. complet 015 MG/DL 1 ed 21:40 ALKALIN 64 U/L 45-117 complet E 015 ed PHOSPHA 21:40 TASE AST 27 U/L 15-37 complet 015 ed 21:40 ALT 23 U/L 12-78 complet 015 ed 21:40 BILIRUB 0.30 0.00-1. complet IN, 015 MG/DL 00 ed TOTAL 21:40 GLOMELULAR PABLO. RATE,CALC. (05-09-2014 21:40) GLOMELU 175.1 60.0-13 complet LAR 015 ml/min 0.0 ed PABLO. 21:40 RATE,CA LC. BASIC METABOLIC PANEL (CHEM 7) (03-28-2014 03:43) Comment: Physician is not a Physician's Portal User GLUCOSE 93 70-110 complet 014 MG/DL ed 03:43 BUN 03-28-2 9 MG/DL 7-18 complet 014 ed 03:43 SODIUM 138 133-144 complet 014 mmol/L ed 03:43 POTASSI 4.1 3.6-5.2 complet UM 014 mmol/l ed 03:43 CHLORID 107 98-107 complet E 014 mmol/l ed 03:43 CO2 27 21-32 complet 014 mmol/L ed 03:43 CREATIN 0.8 0.6-1.3 complet INE 014 MG/DL ed 03:43 CALCIUM 8.5 8.5-10. complet 014 MG/DL 1 ed 03:43 MAGNESIUM (03-28-2014 03:43) Comment: Physician is not a Physician's Portal User MAGNESI 1.6 1.7-2.4 complet UM 014 MG/DL ed 03:43 PHOSPHOROUS (03-28-2014 03:43) Comment: Physician is not a Physician's Portal User PHOSPHO 2.9 2.5-4.9 complet SADIQ 014 MG/DL ed 03:43 GLOMELULAR PABLO. RATE,CALC. (03-28-2014 03:43) Comment: Physician is not a Physician's Portal User GLOMELU 125.7 60.0-13 complet LAR 014 ml/min 0.0 ed PABLO. 03:43 RATE,CA LC. Comment: 60-69 85 ML/MIN Comment: 50-59 93 ML/MIN Comment: 40-49 99 ML/MIN Comment: 30-39 107 ML/MIN Comment: 20-39 116 ML/MIN Comment: AGE(YEARS) AVERAGE EGFR Comment: AVERAGE EGFR FOLLOWS: Comment: <15 ML/MIN/1.73M2 = KIDNEY FAILURE Comment: <60 ML/MIN/1.73M2 = CHRONIC KIDNEY DISEASE Comment: >60 ML/MIN/1.73M2 = NORMAL Comment: PATIENTS >70 YEARS OF AGE,OR PATIENTS WITH EXTREME BODY SIZE. Comment: THIS CALCULATION IS NOT ACCURATE FOR PEDIATRIC PATIENTS, Comment: BASED ON AN AVERAGE BODY SURFACE AREA OF 1.73M2. Comment: THE eGFR IS AN ESTIMATED GLOMELULAR FILTRATION RATE UR IN HOUSE DRUG SCREEN (03-27-2014 14:30) Comment: NO; Physician is not a Physician's Portal User URINE NEG NEGATIV complet AMPHETA 014 ug/ML E ed MINES 14:30 Comment: AMPHETAMINE CUT OFF CONCENTRATION - 300 URINE 11-24-2 NEG NEGATIV complet BARBITU 014 ug/ML E ed RATES 14:30 Comment: BARBITUATE CUT OFF CONCENTRATION - 200 URINE 11-24-2 POS NEGATIV complet BENZODI 014 ug/ML E ed AZEPINE 14:30 S Comment: BENZODIAZEPINE CUT OFF CONCENTRATION - 200 URINE 11-24-2 NEG NEGATIV complet COCAINE 014 ug/ML E ed 14:30 Comment: COCAINE CUT OFF CONCENTRATION - 300 URINE 11-24-2 POS NEGATIV complet OPIATES 014 ug/ML E ed 14:30 Comment: OPIATE CUT OFF CONCENTRATION - 300 URINE 11-24-2 NEG NEGATIV complet CANNABI 014 NG/ML E ed NOIDS 14:30 Comment: THC CUT OFF CONCENTRATION - 50 URINE 11-24-2 NEG NEGATIV complet METHADO 014 ug/ML E ed NE 14:30 Comment: USED. THESE DRUG SCREEN RESULTS ARE NOT FOR LEGAL APPLICATIONS. Comment: TEST RESULT, PARTICULARY WHEN PRELIMINARY POSITIVE RESULTS ARE Comment: PROFESSIONAL JUDGEMENT SHOULD BE APPLIED TO ANY DRUG OF ABUSE Comment: DISCRETION OF THE PHYSICIAN. CLINICAL CONSIDERATION AND Comment: WITH THE TEST. CONFORMITORY TEST CAN BE ORDERED AT THE Comment: IS A POSSIBILITY THAT OVER THE COUNTER DRUGS MAY INTERFERE Comment: THESE RESULTS PROVIDE ONLY A PRELIMINARY TEST RESULT. THERE Comment: METHADONE CUT OFF CONCENTRATION - 300 URINE HCG (03-26-2014 18:00) URINE 11-23-2 NEGATIV complet HCG 014 E ed 18:00 URINALYSIS COMPLETE (03-26-2014 18:00) COLOR 11-23-2 YELLOW complet 014 ed 18:00 CLARITY 11-23-2 CLOUDY complet 014 ed 18:00 GLUCOSE 11-23-2 NEGATIV NEGATIV complet 014 E MG/DL E ed 18:00 BILIRUB 11-23-2 NEGATIV NEGATIV complet IN 014 E E ed 18:00 KETONE 11-23-2 NEGATIV NEGATIV complet 014 E MG/DL E ed 18:00 SPECIFI 11-23-2 1.015 1.006-1 complet C 014 .035 ed GRAVITY 18:00 BLOOD 11-23-2 NEGATIV NEGATIV complet 014 E E ed 18:00 PH 11-23-2 6.5 5.0-9.0 complet 014 ed 18:00 PROTEIN 11-23-2 NEGATIV NEGATIV complet 014 E MG/DL E ed 18:00 UROBILI 11-23-2 0.2 0.2-1.0 complet NOGEN 014 E.U./DL ed 18:00 NITRITE 11-23-2 NEGATIV NEGATIV complet 014 E E ed 18:00 LEUKOCY 11-23-2 SMALL NEGATIV complet ROBERT 014 E ed 18:00 UA, MICROSCOPIC REVIEW (03-26-2014 18:00) RBC 11-23-2 0-5 HPF 0-5 complet 014 ed 18:00 WBC 11-23-2 5-10 0-5 complet 014 HPF ed 18:00 EPITHEL 11-23-2 10-15 complet IAL 014 HPF ed CELLS 18:00 MUCOUS 11-23-2 1+ complet 014 ed 18:00 BACTERI 11-23-2 3+ HPF Absent complet A 014 ed 18:00 CBC\\T\\AUTO DIFF (03-26-2014 17:48) BASO# 11-23-2 0.0 0.0-0.2 complet 014 K/ul ed 17:48 MONOS# 11-23-2 0.6 0.2-0.6 complet 014 K/ul ed 17:48 EOS# 11-23-2 0.1 0.0-0.9 complet 014 K/ul ed 17:48 BASO% 11-23-2 0.3 % 0.0-2.0 complet 014 ed 17:48 LYMPH# 11-23-2 2.7 0.4-3.9 complet 014 K/ul ed 17:48 MPV 11-23-2 9.1 fl 6.4-10. complet 014 4 ed 17:48 NEUTROP 11-23-2 65.9 % 43.0-83 complet HILS% 014 .0 ed 17:48 LYMPH% 11-23-2 26.7 % 10.0-42 complet 014 .0 ed 17:48 MONOS% 11-23-2 6.4 % 1.0-14. complet 014 0 ed 17:48 EOS% 11-23-2 0.7 % 0.0-11. complet 014 0 ed 17:48 WBC 11-23-2 10.1 3.0-11. complet 014 K/UL 3 ed 17:48 RBC 11-23-2 4.170 3.450-5 complet 014 M/ul .400 ed 17:48 HGB 11-23-2 13.0 10.0-16 complet 014 gm/dl .0 ed 17:48 HCT 03-26-2 39.0 % 29.9-45 complet 014 .5 ed 17:48 MCV 03-26-2 93.6 fl 78.2-10 complet 014 1.8 ed 17:48 MCH 23-2 31.2 pg 26.4-33 complet 014 .3 ed 17:48 MCHC 23-2 33.3 32.5-35 complet 014 g/dl .3 ed 17:48 RDW 23-2 14.3 % 10.1-16 complet 014 .2 ed 17:48 PLATELE 03-26-2 283 122-454 complet T 014 K/UL ed 17:48 NEUT # 23-2 6.7 2.7-6.9 complet 014 K/ul ed 17:48 LIPASE (03-26-2014 17:48) LIPASE 23-2 77 U/L 73-393 complet 014 ed 17:48 COMP. METABOLIC PANEL (CHEM 12) (03-26-2014 17:48) GLUCOSE 23-2 80 70-110 complet 014 MG/DL ed 17:48 ALBUMIN 23-2 3.9 3.4-5.0 complet 014 G/DL ed 17:48 SODIUM 23-2 136 133-144 complet 014 mmol/L ed 17:48 POTASSI 23-2 4.3 3.6-5.2 complet UM 014 mmol/l ed 17:48 Comment: Specimen slightly hemolyzed. Results may be falsely elevated. CHLORID 23-2 104 98-107 complet E 014 mmol/l ed 17:48 CO2 23-2 26 21-32 complet 014 mmol/L ed 17:48 CREATIN -23-2 0.8 0.6-1.3 complet INE 014 MG/DL ed 17:48 AST -23-2 27 U/L 15-37 complet 014 ed 17:48 Comment: Specimen slightly hemolyzed. Results may be falsely elevated. ALT -23-2 20 U/L 12-78 complet 014 ed 17:48 BILIRUB -23-2 0.30 0.00-1. complet IN, 014 MG/DL 00 ed TOTAL 17:48 GLOBULI 11-23-2 4.0 2.4-4.8 complet N 014 G/DL ed 17:48 A/G 1.0 0.6-1.6 complet RATIO 014 ed 17:48 CALCIUM 9.1 8.5-10. complet 014 MG/DL 1 ed 17:48 ALKALIN 67 U/L 45-117 complet E 014 ed PHOSPHA 17:48 TASE PROTEIN 7.9 6.4-8.4 complet , TOTAL 014 G/DL ed 17:48 BUN 10 7-18 complet 014 MG/DL ed 17:48 GLOMELULAR PABLO. RATE,CALC. (03-26-2014 17:48) GLOMELU 125.8 60.0-13 complet LAR 014 ml/min 0.0 ed PABLO. 17:48 RATE,CA LC. Comment: 60-69 85 ML/MIN Comment: 50-59 93 ML/MIN Comment: 40-49 99 ML/MIN Comment: 30-39 107 ML/MIN Comment: 20-39 116 ML/MIN Comment: AGE(YEARS) AVERAGE EGFR Comment: AVERAGE EGFR FOLLOWS: Comment: <15 ML/MIN/1.73M2 = KIDNEY FAILURE Comment: <60 ML/MIN/1.73M2 = CHRONIC KIDNEY DISEASE Comment: >60 ML/MIN/1.73M2 = NORMAL Comment: PATIENTS >70 YEARS OF AGE,OR PATIENTS WITH EXTREME BODY SIZE. Comment: THIS CALCULATION IS NOT ACCURATE FOR PEDIATRIC PATIENTS, Comment: BASED ON AN AVERAGE BODY SURFACE AREA OF 1.73M2. Comment: THE eGFR IS AN ESTIMATED GLOMELULAR FILTRATION RATE AMYLASE (03-26-2014 17:48) AMYLASE 58 U/L 25-115 complet 014 ed 17:48 CBC/NO DIFF+ PLATELET (03-24-2014 08:35) WBC 03-24- 9.6 3.0-11. complet 014 K/UL 3 ed 08:35 HCT 03-24- 36.5 % 29.9-45 complet 014 .5 ed 08:35 MCV 03-24- 94.5 fl 78.2-10 complet 014 1.8 ed 08:35 MCH 03-24-2 31.4 pg 26.4-33 complet 014 .3 ed 08:35 MCHC 33.2 32.5-35 complet 014 g/dl .3 ed 08:35 RDW 14.9 % 10.1-16 complet 014 .2 ed 08:35 PLATELE 218 122-454 complet T 014 K/UL ed 08:35 MPV 9.7 fl 6.4-10. complet 014 4 ed 08:35 RBC 3.870 3.450-5 complet 014 M/ul .400 ed 08:35 HGB 12.1 10.0-16 complet 014 gm/dl .0 ed 08:35 BASIC METABOLIC PANEL (CHEM 7) (03-24-2014 08:35) CHLORID 108 98-107 complet E 014 mmol/l ed 08:35 CREATIN 0.8 0.6-1.3 complet INE 014 MG/DL ed 08:35 SODIUM 139 133-144 complet 014 mmol/L ed 08:35 POTASSI 4.0 3.6-5.2 complet UM 014 mmol/l ed 08:35 GLUCOSE 99 70-110 complet 014 MG/DL ed 08:35 BUN 10 7-18 complet 014 MG/DL ed 08:35 CO2 26 21-32 complet 014 mmol/L ed 08:35 CALCIUM 8.0 8.5-10. complet 014 MG/DL 1 ed 08:35 MAGNESIUM (03-24-2014 08:35) MAGNESI 1.9 1.7-2.4 complet UM 014 MG/DL ed 08:35 PHOSPHOROUS (03-24-2014 08:35) PHOSPHO 2.7 2.5-4.9 complet SADIQ 014 MG/DL ed 08:35 GLOMELULAR PABLO. RATE,CALC. (03-24-2014 08:35) GLOMELU 125.8 60.0-13 complet LAR 014 ml/min 0.0 ed PABLO. 08:35 RATE,CA LC. CBC/NO DIFF+ PLATELET (03-23-2014 10:50) WBC 11.1 3.0-11. complet 014 K/UL 3 ed 10:50 PLATELE -20-2 233 122-454 complet T 014 K/UL ed 10:50 MPV -20-2 9.4 fl 6.4-10. complet 014 4 ed 10:50 RBC -20-2 3.930 3.450-5 complet 014 M/ul .400 ed 10:50 HGB 20-2 12.2 10.0-16 complet 014 gm/dl .0 ed 10:50 HCT -20-2 37.0 % 29.9-45 complet 014 .5 ed 10:50 MCV 20-2 94.2 fl 78.2-10 complet 014 1.8 ed 10:50 MCH -20-2 31.1 pg 26.4-33 complet 014 .3 ed 10:50 MCHC 20-2 33.0 32.5-35 complet 014 g/dl .3 ed 10:50 RDW 20-2 15.3 % 10.1-16 complet 014 .2 ed 10:50 BASIC METABOLIC PANEL (CHEM 7) (03-23-2014 10:50) CO2 -20-2 26 21-32 complet 014 mmol/L ed 10:50 CREATIN 20-2 0.8 0.6-1.3 complet INE 014 MG/DL ed 10:50 CALCIUM -20-2 8.1 8.5-10. complet 014 MG/DL 1 ed 10:50 BUN -20-2 9 MG/DL 7-18 complet 014 ed 10:50 SODIUM 20-2 139 133-144 complet 014 mmol/L ed 10:50 POTASSI -20-2 3.9 3.6-5.2 complet UM 014 mmol/l ed 10:50 GLUCOSE 20-2 118 70-110 complet 014 MG/DL ed 10:50 CHLORID 20-2 110 98-107 complet E 014 mmol/l ed 10:50 MAGNESIUM (03-23-2014 10:50) MAGNESI -20-2 1.5 1.7-2.4 complet UM 014 MG/DL ed 10:50 PHOSPHOROUS (03-23-2014 10:50) PHOSPHO -20-2 2.5 2.5-4.9 complet SADIQ 014 MG/DL ed 10:50 GLOMELULAR PABLO. RATE,CALC. (03-23-2014 10:50) GLOMELU 11-20-2 125.8 60.0-13 complet LAR 014 ml/min 0.0 ed PABLO. 10:50 RATE,CA LC. URINE HCG (03-23-2014 05:00) URINE 11-20-2 NEGATIV complet HCG 014 E ed 05:00 URINALYSIS COMPLETE (03-23-2014 05:00) COLOR -20-2 YELLOW complet 014 ed 05:00 CLARITY -20-2 CLEAR complet 014 ed 05:00 GLUCOSE -20-2 NEGATIV NEGATIV complet 014 E MG/DL E ed 05:00 BILIRUB 11-20-2 NEGATIV NEGATIV complet IN 014 E E ed 05:00 KETONE 11-20-2 NEGATIV NEGATIV complet 014 E MG/DL E ed 05:00 SPECIFI -20-2 1.070 1.006-1 complet C 014 .035 ed GRAVITY 05:00 BLOOD -20-2 NEGATIV NEGATIV complet 014 E E ed 05:00 PH -20-2 6.0 5.0-9.0 complet 014 ed 05:00 PROTEIN -20-2 NEGATIV NEGATIV complet 014 E MG/DL E ed 05:00 UROBILI -20-2 0.2 0.2-1.0 complet NOGEN 014 E.U./DL ed 05:00 NITRITE -20-2 NEGATIV NEGATIV complet 014 E E ed 05:00 LEUKOCY -20-2 NEGATIV NEGATIV complet ROBERT 014 E E ed 05:00 RBC -20-2 1 /HPF 0-4 complet COUNT 014 ed 05:00 WBC 11-20-2 2 /HPF 0-5 complet COUNT 014 ed 05:00 EPITHEL -20-2 19 /HPF 0-6 complet IAL 014 ed CELL 05:00 COUNT BACTERI -20-2 TRACE NEGATIV complet A COUNT 014 /HPF E ed 05:00 HYALINE 20-2 3 /LPF 0-4 complet CAST 014 ed 05:00 I-CHEMISTRY 8+ PANEL (03-22-2014 15:13) I-TCO2 03-22-2 26 23-27 complet 014 mmol/L ed 15:13 I-CHLOR 104 98-109 complet NADIA 014 mmol/L ed 15:13 I-BUN 12 8-26 complet 014 MG/DL ed 15:13 I-CREAT 1.0 0.6-1.3 complet ININE 014 mg/dl ed 15:13 I-HEMAT 39 % 38-51 complet OCRIT 014 ed 15:13 I-K+ 4.2 3.5-4.9 complet 014 mmol/L ed 15:13 I-ANION 16 10-20 complet GAP 014 mmol/L ed 15:13 I-IONIZ 1.17 1.12-1. complet ED CA 014 mmol/L 32 ed 15:13 I-GLUCO 82 70-105 complet SE 014 MG/DL ed 15:13 I-HEMOG 13.3 12.0-17 complet LOBIN 014 gm/dl .0 ed 15:13 I-SODIU 140 138-146 complet M 014 mmol/L ed 15:13 CBC\\T\\AUTO DIFF (03-22-2014 15:09) MPV 8.8 fl 6.4-10. complet 014 4 ed 15:09 NEUTROP 55.5 % 43.0-83 complet HILS% 014 .0 ed 15:09 LYMPH% 33.7 % 10.0-42 complet 014 .0 ed 15:09 MONOS% 8.7 % 1.0-14. complet 014 0 ed 15:09 EOS% 1.3 % 0.0-11. complet 014 0 ed 15:09 RBC 4.100 3.450-5 complet 014 M/ul .400 ed 15:09 HGB 12.8 10.0-16 complet 014 gm/dl .0 ed 15:09 HCT 38.6 % 29.9-45 complet 014 .5 ed 15:09 MCV 94.3 fl 78.2-10 complet 014 1.8 ed 15:09 MCH 31.1 pg 26.4-33 complet 014 .3 ed 15:09 MCHC 2 33.0 32.5-35 complet 014 g/dl .3 ed 15:09 RDW 03-22-2 14.8 % 10.1-16 complet 014 .2 ed 15:09 PLATELE 03-22- 235 122-454 complet T 014 K/UL ed 15:09 EOS# 03-22-2 0.1 0.0-0.9 complet 014 K/ul ed 15:09 BASO# 03-22-2 0.1 0.0-0.2 complet 014 K/ul ed 15:09 BASO% 03-22-2 0.8 % 0.0-2.0 complet 014 ed 15:09 NEUT # 03-22-2 3.7 2.7-6.9 complet 014 K/ul ed 15:09 LYMPH# 03-22-2 2.3 0.4-3.9 complet 014 K/ul ed 15:09 MONOS# 03-22-2 0.6 0.2-0.6 complet 014 K/ul ed 15:09 WBC 03-22-2 6.7 3.0-11. complet 014 K/UL 3 ed 15:09 [facility] ([facility] W MICRO AND CULTURE) (05-13-2012 00:54) LEUKOCY NEGATIV NEGATIV Normal complet TE 013 E E ed ESTERAS 00:54 E ,URINE UROBILI 0.2 0.0-1.0 Normal complet NOGEN,U 013 E.H./dL ed RINE 00:54 BILIRUB NEGATIV NEGATIV Normal complet IN,URIN 013 E E ed E 00:54 NITRATE NEGATIV NEGATIV Normal complet ,URINE 013 E E ed 00:54 KETONES 40 NEGATIV Abnorma complet ,URINE 013 mg/dL E l ed 00:54 GLUCOSE NEGATIV NEGATIV Normal complet , URINE 013 E mg/dL E ed (UA) 00:54 PROTEIN NEGATIV NEGATIV Normal complet ,URINE 013 E mg/dL E ed 00:54 SPECIFI 1.020 1.003-1 Normal complet C 013 .035 ed GRAVITY 00:54 , URINE PH,URIN 6.0 4.5-8.0 Normal complet E 013 ed 00:54 BLOOD, NEGATIV NEGATIV Normal complet URINE 013 E E ed 00:54 APPEARA CLEAR Normal complet NCE,URI 013 ed NE 00:54 COLOR,U YELLOW Normal complet RINE 013 ed 00:54 DAU10 (05-13-2012 00:54) CANNABI NEGATIV NEGATIV Normal complet NOID 013 E E ed SCREEN 00:54 METHADO NEGATIV NEGATIV Normal complet NE 013 E E ed SCREEN 00:54 COCAINE NEGATIV NEGATIV Normal complet SCREEN 013 E E ed 00:54 BENZODI NEGATIV NEGATIV Normal complet AZEPINE 013 E E ed SCREEN 00:54 AMPHETA NEGATIV NEGATIV Normal complet MINE 013 E E ed SCREEN 00:54 PHENCYC NEGATIV NEGATIV Normal complet LIDINE 013 E E ed SCREEN 00:54 BARBITU POSITIV NEGATIV Abnorma complet RATE 013 E E l ed SCREEN 00:54 Comment: This test is for Medical Purpose Only. Chain of Custody is Comment: required for drug testing for legal use. METHAQU NEGATIV NEGATIV Normal complet ALONE 013 E E ed SCR 00:54 OXYCODO NEGATIV NEGATIV Normal complet NE SCR 013 E E ed 00:54 OPIATE NEGATIV NEGATIV Normal complet SCREEN 013 E E ed 00:54 CBC WITH AUTO DIFF REFLEX (05-13-2012 00:25) MEAN 7.9 fL 6.0-10. Normal complet PLATELE 013 0 ed T 00:25 VOLUME PLATELE 271 x10 130-400 Normal complet T COUNT 013 3 ed 00:25 RDW 14.6 % 11.5-14 Above complet 013 .5 high ed 00:25 normal MCHC 31.5 32-36 Below complet 013 g/dL low ed 00:25 normal MCH 01-10-2 29.8 pg 27-31 Normal complet 013 ed 00:25 MCV 10-2 94.7 fL 81-99 Normal complet 013 ed 00:25 HEMATOC -10-2 43.4 % 37.0-47 Normal complet RIT 013 .0 ed 00:25 HEMOGLO 10-2 13.7 12.0-16 Normal complet BIN 013 g/dL .0 ed 00:25 RED 10-2 4.58 X 4.20-5. Normal complet BLOOD 013 10 6 40 ed COUNT 00:25 WBC 10-2 8.5 X 4.8-10. Normal complet (WHITE 013 10 3 8 ed BLOOD 00:25 CELL) EOSINOP -10-2 0.1 X 0.0-0.5 Normal complet HILS # 013 10 3 ed (AUTO) 00:25 MONOCYT -10-2 0.5 X 0.3-0.9 Normal complet ES # 013 10 3 ed (AUTO) 00:25 LYMPHOC 10-2 2.5 X 1.0-3.3 Normal complet YTES # 013 10 3 ed (AUTO) 00:25 NEUTROP 10-2 5.2 X 1.8-7.0 Normal complet HILS # 013 10 3 ed (AUTO) 00:25 BASOPHI -10-2 0.3 % 0-1.6 Normal complet LS % 013 ed (AUTO) 00:25 EOSINOP -10-2 1.6 % 0.0-5.8 Normal complet HILS % 013 ed (AUTO) 00:25 MONOCYT -10-2 5.4 % 4.4-11. Normal complet ES % 013 0 ed (AUTO) 00:25 LYMPHOC -10-2 28.9 % 17.6-40 Normal complet YTES % 013 .8 ed (AUTO) 00:25 BASOPHI -10-2 0.0 X 0.0-0.2 Normal complet LS # 013 10 3 ed (AUTO) 00:25 NEUTROP -10-2 61.3 % 43.1-74 Normal complet HILS % 013 .8 ed (AUTO) 00:25 Comment: If a manual differential is indicated, submit order within Comment: 48 hours" LIPASE (05-13-2012 00:25) LIPASE 05-13-2 21 u/L 13-60 Normal complet 013 ed 00:25 CMP (05-13-2012 00:25) SODIUM 136 136-145 Normal complet 013 mmol/L ed 00:25 ALKALIN 62 IU/L 35-105 Normal complet E 013 ed PHOSPHA 00:25 TASE ALBUMIN 1.3 1.1-1.8 Normal complet /GLOBUL 013 ed IN 00:25 RATIO GLOBULI 3.4 1.5-3.8 Normal complet N 013 gm/dL ed 00:25 ALBUMIN 4.5 3.5-5.2 Normal complet 013 g/dL ed 00:25 PROTEIN 7.9 6.4-8.3 Normal complet , TOTAL 013 g/dL ed 00:25 ALANINE 15 IU/L 0-33 Normal complet 013 ed AMINOTR 00:25 ANSFERA SE ASPARTA 19 IU/L 0-32 Normal complet TE 013 ed AMINO 00:25 TRANSFE RASE BILIRUB 0.1 0.0-1.2 Normal complet IN,TOTA 013 mg/dL ed L 00:25 CALCIUM 10.0 8.4-10. Normal complet 013 mg/dL 2 ed 00:25 OSMOLAL 271 275-295 Below complet ITY,SULEMA 013 mOsm/L low ed CULATED 00:25 normal GLUCOSE 96 70-100 Normal complet 013 mg/dL ed 00:25 BUN/CRE 14.3 7.0-25. Normal complet ATININE 013 0 ed RATIO 00:25 eGFR >*59 Normal complet 013 mL/min/ ed 00:25 1 Comment: An eGFR of <60 mL/min/1.73 m2 for three months or more is Comment: indicative of chronic kidney disease. Patients with eGFR Comment: values > or = 60 mL/min/1.73 m2 may have chronic kidney Comment: disease if evidence of persistent proteinuria is present. Comment: Reference: [email or web address] Comment: *Units are mL/min/1.73m2 CREATIN 0.7 0.5-0.9 Normal complet INE 013 mg/dL ed 00:25 BLOOD 10.0 6-20 Normal complet UREA 013 mg/dL ed NITROGE 00:25 N ANION 16 8-16 Normal complet GAP 013 ed 00:25 CARBON 18 22-29 Below complet DIOXIDE 013 mmol/L low ed 00:25 normal CHLORID 102.0 98-107 Normal complet E 013 mmol/L ed 00:25 POTASSI 3.8 3.5-5.1 Normal complet UM 013 mmol/L ed 00:25 STREP SCREEN CONFIRMATION (03-22-2012 02:28) Clinica Negativ complet l 012 e for ed Report 02:28 Beta Hemolyt ic Strep at 48 hrs Clinica Negativ complet l 012 e for ed Report 02:28 Beta Hemolyt ic Strep at 24 hrs Clinica CUL RES complet l 012 ed Report 02:28 (Final) Clinica Status: complet l 012 Final ed Report 02:28 Last Updated : 012 22:22 Clinica Collect complet l 012 ed: ed Report 02:28 012 02:28 Clinica Specime complet l 012 n: ed Report 02:28 OTHER-S PECIFY INFLUENZA VIRUS A/B DIRECT IF TST (03-22-2012 02:28) Influen NEGATIV NEGATIV Normal complet za B 012 E E ed Antigen 02:28 Comment: Cell Culture is recommended for confirmation of negative Comment: results. Influen NEGATIV NEGATIV Normal complet za A 012 E E ed Antigen 02:28 Comment: Cell Culture is recommended for confirmation of negative Comment: results. STREP SCREEN (03-22-2012 02:28) Strep A NEGATIV NEGATIV Normal complet 012 E E ed 02:28 Comment: CULTURE SENT FOR CONFIRMATION Procedures Procedure DOS Code Location Performer Comment POSTPARTU [address] MEDICAL SEPARATE GROUP PROCEDURE CUL BACT [address] METHS DEFINITIV E EA ISOL CULTURE 13922 NONDENOMINATIONAL NONDENOMINATIONAL BACTERIAL 7 [facility] [place] QUANTTATI VE COLONY COUNT URINE CULTURE 07035 NONDENOMINATIONAL NONDENOMINATIONAL TYPING 7 [facility] IMMUNOLOG [facility] IC OTH/THN IMMUNOFLU ORES SUSCEPTIB 93202 NONDENOMINATIONAL NONDENOMINATIONAL LTY STDY 7 [facility] ANTIMICRB [facility] IAL MICRO/AGA R DILUTJ URNLS DIP 86162 NONDENOMINATIONAL NONDENOMINATIONAL 7 [facility] STICK/TAB [facility] LET REAGENT AUTO MICROSCOP Y BREAST E0603 GOULDS GOULDS PUMP 7 [facility] 53690 NONDENOMINATIONAL [facility] DISCHARGE 7 [facility] DAY MEDICAL MANAGEMEN GROUP T 30 MIN/< SBSQ [address] [place] [address] [facility] CARE/DAY MEDICAL 15 GROUP MINUTES VAGINAL 03334 NONDENOMINATIONAL [place] DELIVERY 7 [facility] ONLY MEDICAL GROUP NEURAXIAL 27927 NONDENOMINATIONAL [place] [facility] 7 ANESTHESI ANALG/ANE A PSC S PLND VAGINAL DELIVERY INITIAL [address] [place] [address] HEALTH CARE/DAY MEDICAL 30 GROUP MINUTES DOPPLER 29683 NONDENOMINATIONAL [place] VELOCIMET 7 HEALTH RY MEDICAL UMBILICAL GROUP ARTERY 61611 NONDENOMINATIONAL [place] BIOPHYSIC 7 [facility] AL MEDICAL PROFILE GROUP W/O NON-STRES S TESTING [place] PREG 76611 NONDENOMINATIONAL [place] UTERUS 7 HEALTH REAL TIME MEDICAL F/U GROUP TRNSABDL PER FETUS 67342 NONDENOMINATIONAL NONDENOMINATIONAL NONSTRESS 7 HEALTH HEALTH TEST [facility] 87844 NONDENOMINATIONAL [place] NONSTRESS 7 [facility] TEST MEDICAL GROUP 54369 NONDENOMINATIONAL NONDENOMINATIONAL NONSTRESS 7 HEALTH HEALTH TEST [facility] 06226 NONDENOMINATIONAL DANIELLE BIOPHYSIC 7 HEALTH AL MEDICAL PROFILE GROUP NON-STRES S TESTING HOSPITAL [id number] NONDENOMINATIONAL NONDENOMINATIONAL OBSERVATI 7 [facility] ON [facility] SERVICE PER HOUR 87305 NONDENOMINATIONAL DANIELLE BIOPHYSIC 7 HEALTH ME MEDICAL PROFILE GROUP NON-STRES S TESTING IAADIADOO 67793 NONDENOMINATIONAL NONDENOMINATIONAL 7 [facility] STREPTOCO [facility] CCUS GROUP A CUL 40203 NONDENOMINATIONAL NONDENOMINATIONAL PRSMPTV 7 [facility] PTHGNC [facility] ORGANISM SCRN W/COLONY ESTIMJ 74737 NONDENOMINATIONAL [facility] NONSTRESS 7 HE[facility] TEST MEDICAL GROUP THERAPEUT 31691 NONDENOMINATIONAL NONDENOMINATIONAL IC 7 [facility] HEALTH PROPHYLAC [facility] TIC/DX INJECTION SUBQ/IM DRUG TEST 67621 NONDENOMINATIONAL NONDENOMINATIONAL PRSMV 7 [facility] HEALTH QUAL [facility] INSTRMNT OPTCL OBS PER DAY INJ J0702 NONDENOMINATIONAL NONDENOMINATIONAL BETAMETHA [address] [place] [address] ACETATE & PHOSPHATE 3 MG THER 32427 NONDENOMINATIONAL NONDENOMINATIONAL PROPH/DX 7 [facility] NJX EA [facility] SEQL IV PUSH SBST/DRUG FAC OBSERVATI 92038 NONDENOMINATIONAL [place] ON CARE 7 HEALTH DISCHARGE [place] [address] NONDENOMINATIONAL NONDENOMINATIONAL BIOPHYSIC 7 [facility] PROFILE W/O NON-STRES S TESTING CALCULUS 00111 NONDENOMINATIONAL NONDENOMINATIONAL QUANTITAT 7 [facility] SUZAN [facility] CHEMICAL INJECTION J1170 NONDENOMINATIONAL NONDENOMINATIONAL 7 [facility] HYDROMORP [facility] PHIL UP TO 4 MG INJECTION J2550 NONDENOMINATIONAL NONDENOMINATIONAL 7 [facility] PROMETHAZ [facility] INE HCL UP TO 50 MG [place] PREG 04397 NONDENOMINATIONAL NONDENOMINATIONAL UTERUS 7 [facility] REAL TIME [facility] F/U TRNSABDL PER FETUS HOSPITAL G0378 NONDENOMINATIONAL NONDENOMINATIONAL OBSERVATI 7 [facility] ON [facility] SERVICE PER HOUR THERAPEUT 08147 NONDENOMINATIONAL NONDENOMINATIONAL IC 7 [facility] INJECTION [facility] [facility] IV PUSH EACH NEW DRUG INJ [id number] NONDENOMINATIONAL NONDENOMINATIONAL BETAMETHA 7 [facility] SONE [facility] ACETATE & PHOSPHATE 3 MG INJECTION J2550 NONDENOMINATIONAL NONDENOMINATIONAL 7 [facility] HEALTH PROMETHAZ [facility] INE HCL UP TO 50 MG INJECTION J2405 NONDENOMINATIONAL NONDENOMINATIONAL 7 [facility] ONDANSETR [facility] ON HCL PER 1 MG COMPREHEN [id number] NONDENOMINATIONAL QUEST SIVE 7 [facility] DIAGNOSTI METABOLIC [place] CS PANEL INCORPORA T INJECTION J1170 NONDENOMINATIONAL NONDENOMINATIONAL 7 [facility] HEALTH HYDROMORP [facility] PHIL UP TO 4 MG URNLS DIP 19086 NONDENOMINATIONAL LAB INDER 7 [facility] FADI STICK/TAB [place] [employer]INGS LET REAGENT AUTO MICROSCOP Y THER 46411 NONDENOMINATIONAL NONDENOMINATIONAL PROPH/DX 7 [facility] NJX EA [facility] SEQL IV PUSH SBST/DRUG FAC THER 82594 NONDENOMINATIONAL NONDENOMINATIONAL PROPH/DX 7 [facility] NJX IV [facility] PUSH SINGLE/1S T SBST/DRUG 24962 NONDENOMINATIONAL [facility] NONSTRESS 7 [facility]ICAL GROUP THERAPEUT 24568 NONDENOMINATIONAL [place] IC 7 HEALTH PROPHYLAC MEDICAL TIC/DX GROUP INJECTION SUBQ/IM INJECTION J2790 NONDENOMINATIONAL [facility] RHO D IG 7 [facility] HUMAN MEDICAL FULL DOSE GROUP 300 MCG ANTIBODY 86507 [facility] SCREEN 7 [facility] RBC EACH INC INC SERUM TECHNIQUE COMPREHEN 82506 [facility] SIVE 7 [facility] METABOLIC INC INC PANEL CALCULUS 98756 [facility] XRAY 7 [facility] DIFFRACTI INC INC ON URNLS DIP 66805 [facility] LUU 7 [facility] STICK/TAB INC INC LET [place]ENT [place]CR[place] Y 83193 [facility] BIOPHYSIC 7 [facility] AL INC INC PROFILE W/O NON-STRES S TESTING UNCLASSIF J3490 [facility] IED DRUGS 7 [place] [address] [facility] LUU 7 [facility] UTERUS INC INC LIMITED 1/> [place] [address] [facility] RETROPERI 7 [facility] TONEAL INC [place] [address] PAT PERRY RETROPERI 7 MEDICAL TONEAL IMAGING [place] W/[place] [address] [facility] INFUSION 7 [facility] THERAPY/P INC INC ROPHYLAXI S /DX 1ST TO 1 HR DOPPLER 37580 [facility] GREGG VELOCIMET 7 [facility] RY INC UMBILICAL ARTERY THERAPEUT 34913 [facility] IC 7 [facility] INJECTION INC [place] [address] [facility] INFUSION 7 [facility] THERAPY/P INC INC ROPHYLAXI S /DX 1ST TO 1 HR THER 11056 [facility] PROPH/DX 7 [facility] NJX EA INC INC SEQL IV PUSH SBST/DRUG FAC CULTURE 86385 [facility] BACTERIAL 7 [facility] INC INC QUANTTATI VE COLONY COUNT URINE THERAPEUT 67830 [facility] IC 7 [facility] PROPHYLAC INC INC TIC/DX INJECTION SUBQ/IM URNLS DIP 30376 [facility] LUU 7 [facility] STICK/TAB INC INC LET REAGENT AUTO MICROSCOP Y URNLS DIP 44749 [facility] LUU 7 [facility] STICK/TAB INC INC LET REAGENT AUTO MICROSCOP Y COLLECTIO 12189 [facility] N VENOUS 7 [facility] [place] [address] [facility] UREA 7 [facility] NITROGEN INC INC QUANTITAT SUZAN THER 36750 [facility] PROPH/DX 7 [facility] NJX IV INC INC PUSH SINGLE/1S T SBST/DRUG 91856 NIMCO FOY NONSTRESS 7 PHYSICIAN TEST S GROUP CREATININ 78729 [facility] E BLOOD 7 [facility] INC INC UNCLASSIF J3490 [facility] IED DRUGS 7 [facility] INC INC THERAPEUT 41395 [facility] IC 7 [facility] INJECTION INC INC IV PUSH EACH NEW DRUG UNCLASSIF J3490 [facility] IED DRUGS 7 [facility] INC INC THERAPEUT 88540 [facility] IC 7 [facility] PROPHYLAC INC INC TIC/DX INJECTION SUBQ/IM OBSERVATI 10018 [facility] DANII ON CARE 6 PHYSICIAN DISCHARGE S GROUP MANAGEMEN T INITIAL 92378 [facility] DANII OBSERVATI 6 PHYSICIAN ON S GROUP CARE/DAY 50 MINUTES OBSERVATI 14686 [facility] DANII ON CARE 6 PHYSICIAN DISCHARGE S GROUP MANAGEMEN T HOSPITAL G0378 [facility] OBSERVATI 6 [facility] ON INC INC SERVICE PER HOUR HOSPITAL G0378 [facility] OBSERVATI 6 [facility] ON INC INC SERVICE PER HOUR INITIAL 80773 [facility] DANII OBSERVATI 6 PHYSICIAN ON S GROUP CARE/DAY 30 MINUTES DRUG TST G0477 [facility] PRESUMP;C 6 [facility] PBL BEING INC INC READ DC OPT OBV ONLY URNLS DIP 11644 [facility] LUU 6 [facility] STICK/TAB INC INC LET REAGENT AUTO MICROSCOP Y THERAPEUT 86426 [facility] IC 6 [facility] PROPHYLAC INC INC TIC/DX INJECTION SUBQ/IM DRUG TST G0477 [facility] DANII PRESUMP;C 6 PHYSICIAN PBL BEING S GROUP READ DC OPT OBV ONLY SVC PRV 63866 [facility] OFFICE 5 REGIONAL REG MEDICAL SCHEDD C EVN WKEND/HOL IDAY HRS URINE 85853 [facility] 5 REGIONAL TEST MEDICAL VISUAL C COLOR CMPRSN METHS IAADIADOO 82983 [facility] 5 REGIONAL STREPTOCO MEDICAL CCUS C GROUP A IAADIADOO 28391 [facility] 5 REGIONAL INFLUENZA MEDICAL C URNLS DIP 97583 [facility] 5 REGIONAL STICK/TAB MEDICAL LET RGNT C NON-AUT[place] W/[place] [address] [place] [facility] & 5 [facility] W/O PLLC CONTRAST MATERIAL Encounters Encounter Start End Date Code Location Performer Type Date [facility] NONDENOMINATIONAL - 7 7 HEALTH OUTPATIEN [facility] NONDENOMINATIONAL - 7 7 HEALTH INPATIENT [place] OFFICE 77940 NONDENOMINATIONAL [facility] OUTPATIEN 7 7 HEALTH T VISIT MEDICAL 15 [facility] NONDENOMINATIONAL - 7 7 HEALTH OUTPATIEN [facility] OFFICE 84322 NONDENOMINATIONAL B[facility] OUTPATIEN 7 7 HEALTH T VISIT MEDICAL 15 [facility] NONDENOMINATIONAL - 7 7 HEALTH OUTPATIEN [facility] OFFICE 59028 NONDENOMINATIONAL DANIELLE OUTPATIEN 7 7 HEALTH T VISIT MEDICAL 15 [facility] OFFICE 59318 NONDENOMINATIONAL DANIELLE OUTPATIEN 7 7 HEALTH T VISIT MEDICAL 15 [facility] NONDENOMINATIONAL - 7 7 HEALTH OUTPATIEN [facility] OFFICE 28681 NONDENOMINATIONAL [facility] OUTPATIEN 7 7 HEALTH T VISIT MEDICAL 15 [facility] OFFICE 09936 NONDENOMINATIONAL B[place] OUTPATIEN 7 7 HEALTH T VISIT MEDICAL 15 [facility] NONDENOMINATIONAL - 7 7 HEALTH OUTPATIEN [facility] OFFICE 11867 NONDENOMINATIONAL B[facility] OUTPATIEN 7 7 HEALTH T NEW 45 MEDICAL MINUTES [facility] BELL - 7 7 [facility] OUTPATIEN INC T EMERGENCY 16981 [facility] 7 7 [facility] DEPARTMEN INC T VISIT MODERATE SEVERITY EMERGENCY 77535 [facility] DEPT 7 7 PHYSICIAN VISIT S, PLLC HIGH SEVERITY& THREAT [facility] BELL - 7 7 [facility] OUTPATIEN INC T OFFICE 93708 [facility] DANII HARDY 7 7 PHYSICIAN T VISIT S GROUP 15 MINUTES EMERGENCY 35902 [facility] 7 7 [facility] DEPARTMEN INC T VISIT MODERATE SEVERITY [facility]OSPITAL [facility] - 7 7 [facility] OUTPATIEN INC T EMERGENCY 91559 [facility] MOJICA DEPT 7 7 PHYSICIAN VISIT S, PLLC HIGH SEVERITY& THREAT [facility]ERGENC[facility] 06683 [facility] HENNING 7 7 PHYSICIAN U DEPARTMEN S, PLLC T VISIT HIGH/URGE NT SEVERITY EMERGENCY 59886 [facility] 7 7 [facility] DEPARTMEN INC T VISIT LOW/MODER SEVERITY [facility]OSPITAL [facility] - 7 7 [facility] OUTPATIEN INC T HOSPITAL [facility] - 6 6 [facility] INPATIENT INC OFFICE 57423 [facility] 6 6 HEALTH ION MEDICAL NEW/ESTAB GROUP PATIENT 15 MIN [facility]OSPITAL [facility] - 6 6 [facility] OUTPATIEN INC T [facility]PITAL [facility] - 6 6 [facility] OUTPATIEN INC T EMERGENCY 74330 [facility] EDDY 6 6 PHYSICIAN DEPARTMEN S, PLLC T VISIT MODERATE SEVERITY EMERGENCY 26443 [facility] 6 6 [facility] DEPARTMEN INC T VISIT LOW/MODER SEVERITY OFFICE 53971 [facility] DANII OUTPATIEN 6 6 PHYSICIAN T NEW 45 S GROUP MINUTES OFFICE 99435 [facility] OUTPATIEN 5 5 REGIONAL T VISIT MEDICAL 15 C MINUTES
--- OUTSIDE RECORDS SUMMARY | 2016-09-01 01:22 | External Medical Summary Rpt ---
Author Author , Organization [employer] Address Unknown Phone Unavailable Care Team Providers Care Humidifier Operator Name Role Phone YARSANI ANESTHESIA Unavailable Unavailable [facility], YARSANI ANESTHESIA [facility] Unavailable Unavailable [place], [facility] Unavailable Unavailable MEDICAL GROUP, [facility] CARUSO, CARUSO Unavailable Unavailable DANIELLE, DANIELLE Unavailable Unavailable BROWN MARICEL, CHRISTINE MARICEL Unavailable Unavailable FOY, FOY Unavailable Unavailable [facility] OR[facility]O Unavailable Unavailable NUNUNUNU MITCHELL Unavailable Unavailable [facility] Unavailable [facility]available [facility] Unavailable Unavailable INC, [facility] HEMMER, HEMMER Unavailable Unavailable MARVIN WONG Unavailable Unavailable [facility] Unavailable Unavailable MEDICAL C, [facility], [facility]available Unavailable [facility] MOJICA, MOJICA Unavailable Unavailable [facility] Unavailable Unavailable [facility], [facility] BOWMAN, BOWMAN Unavailable Unavailable [facility], Unavailable [facility]available [facility], [facility] Unavailable Unavailable PLL[facility], [facility] ZULEMA KELVIN, ZULEMA Unavailable Unavailable [facility] Unavailable Unavailable INCORPORAT, [facility] PETRONA, PETRONA Unavailable Unavailable SOTINGEANU, Unavailable Unavailable SOTINGEANU Purpose Continuity of Care Document - 03-22-2012 through 2016 Problems Code Diagnosis DOS Provider Status R300 DYSURIA 07-17-2016 [facility] Z391 ENCNTR FOR 07-17-2016 Y[facility] CARE & HEALTH EXAMINATION MEDICAL LACTATING GROUP MOTHER Z392 ENCOUNTER 07-17-2016 YARSANI FOR ROUTINE HEALTH MEDICAL FOLLOW-UP GROUP O133 GESTATIONAL 06-25-2016 YARSANI HTN W/O ANESTHESIA SIG PSC PROTEINURIA THIRD TRI O80 ENCOUNTER 06-25-2016 YARSANI FOR ANESTHESIA FULL-TERM PSC UNCOMPLICAT ED DELIVERY Z370 SINGLE LIVE 06-25-2016 YARSANI ANESTHESIA PSC O134 GESTATIONAL 06-24-2016 YARSANI HTN W/O HEALTH SIGNIF [place] PROTEINURIA COMP CB [id number] MAT CARE 06-24-2016 YARSANI OT HEALTH KNWN/SUSP MEDICAL POOR FTL GROUP GRTH 3RD TRI UNS O665 ATTEMPTED 06-24-2016 YARSANI APPLICATION HEALTH VACUUM MEDICAL EXTRACTOR & GROUP FORCEPS [id number] L & D COMP 06-24-2016 YARSANI CORD AROUND HEALTH NECK W/O [place] COMPRS NA/UNS Z2913 ENCOUNTER 06-24-2016 YARSANI FOR HEALTH PROPHYLACTI [place] C RHO IMMUNE GLOBULIN Z3A36 36 WEEKS 06-24-2016 YARSANI GESTATION HEALTH OF MEDICAL GROUP O163 UNSPECIFIED 06-20-2016 YARSANI MATERNAL HEALTH HYPERTENSIO [place] N 3RD TRIMESTER [id number] OTHER SPEC 06-20-2016 YARSANI HEALTH RELATED MEDICAL COND 3RD GROUP TRIMESTER O288 OTH 06-20-2016 YARSANI ABNORMAL HEALTH FIND ON [place] SCREENING MOTHER [id number] MATERNAL 06-20-2016 YARSANI CARE OT HEALTH SPEC MEDICAL PROB 3RD GROUP TRI NA/UNS D55078 PERSONAL 06-20-2016 YARSANI HISTORY OF HEALTH URINARY [place] CALCULI Z3A35 35 WEEKS 06-17-2016 [facility] O289 UNS 06-13-2016 Y[facility]ANI ABNORMAL HEALTH FIND ON [place] SCREENING MOTHER [id number] OLIGOHYDRAM 06-13-2016 YARSANI NIOS THIRD HEALTH TRIMESTER MEDICAL NA/UNS GROUP E669 OBESITY 06-10-2016 Y[facility] UNSPECIFIED HEALTH MEDICAL GROUP Z3A34 34 WEEKS 06-10-2016 [facility] R109 UNSPECIFIED 06-05-2016 Y[facility] ABDOMINAL HEALTH PAIN MEDICAL GROUP Z3A33 33 WEEKS 06-03-2016 [facility] O210 MILD 05-28-2016 YARSANI HYPEREMESIS [facility]ALTH [facility] Z418 ENC OTH 05-28-2016 YARSANI PROC HEALTH PURPOSES MEDICAL OTH THAN GROUP REMEDY HLTH STATE N1330 UNSPECIFIED 05-25-2016 [facility]DRONE[facility] SIS O4443 LOW LYING 05-25-2016 [facility] NOS/WO IMAGING ASS HEMORRHAGE 3RD TRIM O4703 FALSE LABOR 05-25-2016 [facility] CMPLETE INC WEEKS GEST 3RD TRI Z331 05-25-2016 [facility] INCIDENTAL IMAGING ASS Z3A32 32 WEEKS 05-25-2016 [facility]ATION [facility] OF INC N23 UNSPECIFIED 05-16-2016 [facility] COLIC [facility]C Z70705 05-16-2016 [facility] RENAL PLLC DISEASE THIRD TRIMESTER [id number] STRAIN 05-16-2016 [facility] TENDON INC NECK LEVL INIT ENC [id number] STRAIN 05-16-2016 [facility] FASCIA & INC TENDON LOW BACK INITIAL Q99258V UNSPECIFIED 05-16-2016 [facility] LEFT HIP INC INITIAL ENCOUNTER Z3480 ENC 05-15-2016 [facility] SUPERVISION PHYSICIANS OTH NORMAL GROUP PREG UNS [...] MEM HOSP & URETRL INC CALCULOUS OBST B69914 OTHER SPEC 03-31-2016 [facility] RELATED INC COND 2ND TRIMESTER Z3A26 26 WEEKS 03-31-2016 [facility]ATION [facility] OF INC [id number] MAT CARE 03-24-2016 [facility] KNWN/SUSP MEDICAL POOR FTL GROUP GRTH 2ND TRI UNS Z3A23 23 WEEKS 03-24-2016 [facility] GROUP I14736 SUPERVISION 03-21-2016 [facility] OT HIGH PHYSICIANS RISK PREG GROUP SECOND TRIMESTER Z3A21 21 WEEKS 03-21-2016 [facility] GESTATION PHYSICIANS OF GROUP O2692 03-20-2016 [facility] CONDITIONS PLLC UNS 2ND TRIMESTER Z3A24 24 WEEKS 03-20-2016 [facility] GESTATION [facility] OF INC Z3201 ENCOUNTER 03-05-2016 [facility] FOR [facility] GROUP TEST RESULT POSITIVE 17115 ABDOMINAL 07-05-2014 [facility] OTHER REGIONAL SPECIFIED MEDICAL C SITE 30270 ABDOMINAL 05-09-2014 [facility] UNSPECIFIED PLLC [...] 03 04 30 30 00 RI Ac CO 37 -3 -2 .0 00 TE ti [...] 02 03 30 30 00 RI Ac CO 37 -1 -1 .0 00 TE ti [...] CY TA BL #1 ET 60 7 CO 00 01 02 30 7 00 RI [...] 1 60 PH CE AR TA MA HI CY NO PH #5 91 7. 5- [...] Ser Ql (06-27-2016 15:47) HCV Ab 06-27-2 [id number] Non-Catr[place]ita complet Ser 017 07 ctive ed [...] Drugs Ur Scn (06-03-2016 14:44) PCP Ur [id number] Negativ complet Ql Scn 017 09 e ed 14:44 Negativ e SCT Cocaine [id number] Negativ complet Ur Ql 017 09 e ed 14:44 Negativ e SCT Ampheta 8121845 Negativ complet mines 017 09 e ed Ur Ql 14:44 Negativ e SCT Opiates 5893192 Negativ complet Ur Ql 017 09 e ed 14:44 Negativ e SCT Amphet+ 9593428 Negativ complet Methamp 017 09 e ed het Ur 14:44 Negativ Ql e SCT Benzodi 0863590 Negativ complet az Ur 017 09 e ed Ql Scn 14:44 Negativ e SCT Tricycl 8897675 Negativ complet ics Ur 017 09 e ed Ql Scn 14:44 Negativ e SCT Methado 0888462 Negativ complet ne Ur 017 09 e ed Ql Scn 14:44 Negativ e SCT Barbitu 1188512 Negativ complet rates 017 09 e ed Ur Ql 14:44 Negativ Scn e SCT Oxycodo 0877307 Negativ complet ne Ur 017 09 e ed Ql Scn 14:44 Negativ e SCT Propoxy 8823208 Negativ complet ph Ur 017 09 e ed Ql 14:44 Negativ e SCT Bupreno 1083037 Negativ complet rphine 017 09 e ed SerPl-m 14:44 Negativ Cnc e SCT Cannabi 9192325 Negativ complet noids 017 09 e ed [...] UA Dipstick Pnl Ur (01-28-2016 19:47) Color [id number] Yellow, complet Ur 016 09 Straw ed 19:47 Yellow color SCT Clarity [id number] Clear complet Ur 016 01 ed 19:47 Clear SCT pH Ur 5.5 5.0-8.0 complet Strip.a 016 ed uto 19:47 Sp Gr 1.015 1.005-1 complet Ur 016 .030 ed Strip 19:47 Glucose 4481026 Negativ complet Ur 016 09 e ed Strip-m 19:47 Negativ Cnc e SCT Ketones 3129942 Negativ complet Ur Ql 016 06 e ed Strip 19:47 Trace SCT Bilirub 2832348 Negativ complet Ur Ql 016 09 e ed Strip 19:47 Negativ e SCT Hgb Ur 5399806 Negativ complet Ql 016 09 e ed Strip.a 19:47 Negativ uto e SCT Prot Ur 8639044 Negativ complet Ql 016 09 e ed Strip 19:47 Negativ e SCT Leukocy 7099834 Negativ complet te 016 09 e ed esteras 19:47 Negativ e Ur Ql e SCT Strip.a uto Nitrite 3977053 Negativ complet Ur Ql 016 09 e [...] UA Dipstick Pnl Ur (01-28-2016 17:44) Color 1027681 Yellow, complet Ur 016 00 Red Straw ed 17:44 color SCT Clarity 5163044 Clear complet Ur 016 02 ed 17:44 Turbid SCT pH Ur <= 5.0 5.0-8.0 complet Strip.a 016 ed uto 17:44 Sp Gr >= 1.005-1 complet Ur 016 1.030 .030 ed Strip 17:44 Glucose 9227508 Negativ complet Ur 016 09 e ed Strip-m 17:44 Negativ Cnc e SCT Ketones 8856454 Negativ complet Ur Ql 016 09 e ed Strip 17:44 Negativ e SCT Bilirub 6830547 Negativ complet Ur Ql 016 09 e ed Strip 17:44 Negativ e SCT Hgb Ur 0340881 Negativ complet Ql 016 01 e ed Strip.a 17:44 Large uto SCT Prot Ur 30 Negativ complet Ql 016 mg/dL e ed Strip 17:44 (1+) Leukocy 0309479 Negativ complet te 016 09 e ed esteras 17:44 Negativ e Ur Ql e SCT Strip.a uto Nitrite [id number] Negativ complet Ur Ql 016 09 e [...] 3.0-11. complet 014 K/UL 3 ed 15:09 [facility] (UA W MICRO AND CULTURE) (05-13-2012 00:54) [...] Procedure DOS Code Location Performer Comment POSTPARTU [address] MEDICAL SEPARATE GROUP PROCEDURE CUL BACT [address] METHS DEFINITIV E EA ISOL CULTURE 28587 YARSANI YARSANI BACTERIAL 7 [facility] QUANTTATI VE COLONY COUNT URINE CULTURE 68164 YARSANI YARSANI TYPING 7 [facility] IMMUNOLOG [facility] IC OTH/THN IMMUNOFLU ORES SUSCEPTIB 09530 YARSANI YARSANI LTY STDY 7 [facility] ANTIMICRB [facility] IAL MICRO/AGA R DILUTJ URNLS DIP 97706 YARSANI YARSANI 7 [facility] STICK/TAB [facility] LET REAGENT AUTO MICROSCOP Y BREAST E0603 [facility] PUMP 7 [facility] [employer] [facility] 99887 YARSANI BOWMAN DISCHARGE 7 HEALTH DAY MEDICAL MANAGEMEN GROUP T 30 MIN/< SBSQ [address] [place] [address] HEALTH CARE/DAY MEDICAL 15 GROUP MINUTES VAGINAL 93023 YARSANI BOWMAN DELIVERY 7 HEALTH ONLY MEDICAL GROUP NEURAXIAL 87764 YARSANI PETRONA LABOR 7 ANESTHESI ANALG/ANE A PSC S PLND VAGINAL DELIVERY INITIAL [address]40[address] [place] [address] HEALTH CARE/DAY MEDICAL 30 GROUP MINUTES DOPPLER 54207 YARSANI CARUSO VELOCIMET 7 HEALTH RY MEDICAL UMBILICAL GROUP ARTERY 31187 YARSANI CARUSO BIOPHYSIC 7 HEALTH AL MEDICAL PROFILE GROUP W/O NON-STRES S TESTING US PREG 71772 YARSANI CARUSO UTERUS 7 HEALTH REAL TIME MEDICAL F/U GROUP TRNSABDL PER FETUS 09922 YARSANI YARSANI NONSTRESS 7 HEALTH HEALTH TEST [facility] 70599 YARSANI BOWMAN NONSTRESS 7 HEALTH TEST MEDICAL GROUP 32290 YARSANI YARSANI NONSTRESS 7 HEALTH HEALTH TEST [facility] 02077 YARSANI DANIELLE BIOPHYSIC 7 HEALTH AL MEDICAL PROFILE GROUP NON-STRES S TESTING HOSPITAL G0378 YARSANI YARSANI OBSERVATI 7 HEALTH HEALTH ON [facility] SERVICE PER HOUR 62802 YARSANI DANIELLE BIOPHYSIC 7 HEALTH [place] MEDICAL PROFILE GROUP NON-STRES S TESTING IAADIADOO 38770 YARSANI YARSANI 7 [facility] STREPTOCO [facility] CCUS GROUP A CUL 80931 YARSANI YARSANI PRSMPTV 7 [facility] PTHGNC [facility] ORGANISM SCRN W/COLONY ESTIMJ 69099 YARSANI BOWMAN NONSTRESS 7 HEALTH TEST MEDICAL GROUP THERAPEUT 37414 YARSANI YARSANI IC 7 [facility] HEALTH PROPHYLAC [facility] TIC/DX INJECTION SUBQ/IM DRUG TEST 68497 YARSANI YARSANI PRSMV 7 [facility] HEALTH QUAL [facility] INSTRMNT OPTCL OBS PER DAY INJ J0702 YARSANI YARSANI BETAMETHA [address] [place] [address] ACETATE & PHOSPHATE 3 MG THER 54799 YARSANI YARSANI PROPH/DX 7 [facility] NJX EA [facility] SEQL IV PUSH SBST/DRUG FAC OBSERVATI 89284 YARSANI BOWMAN ON CARE 7 HEALTH DISCHARGE MEDICAL GROUP MANAGEMEN T 37190 YARSANI YARSANI BIOPHYSIC 7 [facility] PROFILE W/O NON-STRES S TESTING CALCULUS 11006 YARSANI YARSANI QUANTITAT 7 [facility] SUZAN [facility] CHEMICAL INJECTION J1170 YARSANI YARSANI 7 [facility] HYDROMORP [facility] PHIL UP TO 4 MG INJECTION J2550 YARSANI YARSANI 7 [facility] PROMETHAZ [facility] INE HCL UP TO 50 MG US PREG 87860 YARSANI YARSANI UTERUS 7 [facility] REAL TIME [facility] F/U TRNSABDL PER FETUS HOSPITAL G0378 YARSANI YARSANI OBSERVATI 7 [facility] ON [facility] SERVICE PER HOUR THERAPEUT 00334 YARSANI YARSANI IC 7 [facility] INJECTION [facility] IV PUSH EACH NEW DRUG INJ J0702 YARSANI YARSANI BETAMETHA 7 [facility] SONE [facility] ACETATE & PHOSPHATE 3 MG INJECTION J2550 YARSANI YARSANI 7 [facility] HEALTH PROMETHAZ [facility] INE HCL UP TO 50 MG INJECTION J2405 YARSANI YARSANI 7 [facility] ONDANSETR [facility] ON HCL PER 1 MG COMPREHEN 33863 YARSANI QUEST SIVE 7 HEALTH DIAGNOSTI METABOLIC [place] CS PANEL INCORPORA T INJECTION J1170 YARSANI YARSANI 7 [facility] HEALTH HYDROMORP [facility] PHIL UP TO 4 MG URNLS DIP 69558 YARSANI LAB INDER 7 [facility] FADI STICK/TAB [place] [facility] LET REAGENT AUTO MICROSCOP Y THER 62566 YARSANI YARSANI PROPH/DX 7 [facility] NJX EA [facility] SEQL IV PUSH SBST/DRUG FAC THER 12841 YARSANI YARSANI PROPH/DX 7 [facility] NJX IV [facility] PUSH SINGLE/1S T SBST/DRUG 90587 YARSANI BOWMAN NONSTRESS 7 HEALTH TEST MEDICAL GROUP THERAPEUT 00728 YARSANI BOWMAN IC 7 HEALTH PROPHYLAC MEDICAL TIC/DX GROUP INJECTION SUBQ/IM INJECTION J2790 YARSANI BOWMAN RHO D IG 7 [facility] HUMAN MEDICAL FULL DOSE GROUP 300 MCG ANTIBODY 93358 [facility] LUU SCREEN 7 MEM HOS[facility]OS[facility] RBC EACH INC INC SERUM TECHNIQUE COMPREHEN 71800 [facility] SIVE 7 MEM HOS[facility] MEM HOSP METABOLIC INC INC PANEL CALCULUS 78782 [facility] XRAY 7 [facility] MEM HOS[facility] DIFFRACTI INC INC ON URNLS DIP 98985 [facility] LUU 7 [facility]OS[facility] STICK/TAB INC INC LET REAGENT AUTO MICROSCOP Y 21633 [facility] BIOPHYSIC 7 [facility] AL INC INC PROFILE W/O NON-STRES S TESTING UNCLASSIF J3490 [facility] IED DRUGS 7 [place] [address] [facility] LUU 7 [facility] UTERUS INC INC LIMITED 1/> [place] [address] [facility] RETROPERI 7 [facility] TONEAL [place] [address] PAT PERRY RETROPERI 7 MEDICAL TONEAL IMAGING [place] W/[place] [address] [facility] INFUSION 7 MEM [facility]OS[facility] THERAPY/P INC INC ROPHYLAXI S /DX 1ST TO 1 HR DOPPLER 74400 [facility] GREGG VELOCIMET 7 MEM HOS[facility] RY INC UMBILICAL ARTERY THERAPEUT 53345 [facility] L[facility] IC 7 [facility] INJECTION INC [place] [address] [facility] LUU INFUSION 7 [facility] THERAPY/P INC INC ROPHYLAXI S /DX 1ST TO 1 HR THER 78435 [facility] PROPH/DX 7 [facility]OS[facility] NJX EA INC INC SEQL IV PUSH SBST/DRUG FAC CULTURE 06397 [facility] L[facility] BACTERIAL 7 [facility]OS[facility] INC INC QUANTTATI VE COLONY COUNT URINE THERAPEUT 96935 [facility] IC 7 [facility]OS[facility] PROPHYLAC INC INC TIC/DX INJECTION SUBQ/IM URNLS DIP 96077 [facility] LUU 7 [facility] H[facility]OS[facility] STICK/TAB INC INC LET REAGENT AUTO MICROSCOP Y URNLS DIP 04398 [facility] LUU 7 [facility] H[facility]OS[facility] STICK/TAB INC INC LET REAGENT AUTO MICROSCOP Y COLLECTIO 83600 [facility] N VENOUS 7 [facility] [place] [address] [facility]UU UREA 7 [facility]OS[facility] NITROGEN INC INC QUANTITAT SUZAN THER 40737 [facility] PROPH/DX 7 [facility] NJX IV INC INC PUSH SINGLE/1S T SBST/DRUG 03563 NIMCO FOY NONSTRESS 7 PHYSICIAN TEST S GROUP CREATININ 67482 [facility] L[facility] E BLOOD 7 [facility]OS[facility] INC INC UNCLASSIF J3490 [facility] L[facility] IED DRUGS 7 [facility]OS[facility] MEM HOSP INC INC THERAPEUT 56790 [facility] LUU IC 7 [facility]OS[facility] INJECTION INC INC IV PUSH EACH NEW DRUG UNCLASSIF J3490 [facility] IED DRUGS 7 [facility]OS[facility] INC INC THERAPEUT 84988 [facility] LUU IC 7 [facility]OS[facility] PROPHYLAC INC INC TIC/DX INJECTION SUBQ/IM OBSERVATI 69986 [facility] DANII ON CARE 6 PHYSICIAN DISCHARGE S GROUP MANAGEMEN T INITIAL 98618 [facility] DANII OBSERVATI 6 PHYSICIAN ON S GROUP CARE/DAY 50 MINUTES OBSERVATI 23035 [facility] DANII ON CARE 6 PHYSICIAN DISCHARGE S GROUP MANAGEMEN T HOSPITAL G0378 [facility] LUU OBSERVATI 6 [facility] ON INC INC SERVICE PER HOUR HOSPITAL G0378 [facility] LUU OBSERVATI 6 [facility]OS[facility] ON INC INC SERVICE PER HOUR INITIAL 32350 [facility] DANII OBSERVATI 6 PHYSICIAN ON S GROUP CARE/DAY 30 MINUTES DRUG TST G0477 [facility] L[facility] PRESUMP;C 6 MEM [facility] PBL BEING INC INC READ DC OPT OBV ONLY URNLS DIP 43590 [facility] LUU 6 [facility] STICK/TAB INC INC LET REAGENT AUTO MICROSCOP Y THERAPEUT 22289 [facility] LUU IC 6 [facility] PROPHYLAC INC INC TIC/DX INJECTION SUBQ/IM DRUG TST G0477 [facility] DANII PRESUMP;C 6 PHYSICIAN PBL BEING S GROUP READ DC [place] OBV [place] PRV 13623 [facility] OFFICE 5 REGIONAL REG MEDICAL SCHEDD C EVN WKEND/HOL IDAY HRS URINE 39863 [facility] 5 REGIONAL TEST MEDICAL VISUAL C COLOR CMPRSN METHS IAADIADOO 51048 [facility] 5 REGIONAL STREPTOCO MEDICAL CCUS C GROUP A IAADIADOO 18163 [facility] 5 REGIONAL INFLUENZA MEDICAL C URNLS DIP 45180 [facility] 5 REGIONAL STICK/TAB MEDICAL LET RGNT C NON-AUT[place] W/[place] [address] [facility]OMEN & 5 [facility] W/O PLLC CONTRAST MATERIAL Encounters Encounter Start End Date Code Location Performer Type Date [facility] YARSANI - 7 7 HEALTH OUTPATIEN [facility] YARSANI - 7 7 HEALTH INPATIENT [place] OFFICE 04461 YARSANI BOWMAN OUTPATIEN 7 7 HEALTH T VISIT MEDICAL 15 [facility] YARSANI - 7 7 HEALTH OUTPATIEN [facility] OFFICE 35446 YARSANI BOWMAN OUTPATIEN 7 7 HEALTH T VISIT MEDICAL 15 [facility] YARSANI - 7 7 HEALTH OUTPATIEN [facility] OFFICE 92568 YARSANI DANIELLE OUTPATIEN 7 7 HEALTH T VISIT MEDICAL 15 [facility] OFFICE 80522 YARSANI DANIELLE OUTPATIEN 7 7 HEALTH T VISIT MEDICAL 15 [facility] YARSANI - 7 7 HEALTH OUTPATIEN [facility] OFFICE 26543 YARSANI BOWMAN OUTPATIEN 7 7 HEALTH T VISIT MEDICAL 15 [facility] OFFICE 47629 YARSANI BOWMAN OUTPATIEN 7 7 HEALTH T VISIT MEDICAL 15 [facility] YARSANI - 7 7 HEALTH OUTPATIEN [facility] OFFICE 30807 YARSANI BOWMAN OUTPATIEN 7 7 HEALTH T NEW 45 MEDICAL MINUTES [facility] BELL - 7 7 MEM HOS[facility] OUTPATIEN INC T EMERGENCY 51849 [facility] 7 7 [facility] DEPARTMEN INC T VISIT MODERATE SEVERITY EMERGENCY 27214 [facility] DEPT 7 7 PHYSICIAN VISIT S, PLLC HIGH SEVERITY& THREAT [facility] BELL - 7 7 [facility] OUTPATIEN INC T OFFICE 29570 [facility] DANII HARDY 7 7 PHYSICIAN T VISIT S GROUP 15 MINUTES EMERGENCY 88207 [facility] 7 7 [facility] DEPARTMEN INC T VISIT MODERATE SEVERITY HOSPITAL BE[facility] - 7 7 [facility] OUTPATIEN INC T EMERGENCY 05635 [facility] MOJICA DEPT 7 7 PHYSICIAN VISIT S, PLLC HIGH SEVERITY& THREAT [facility] EMERGENCY 16468 [facility] HENNING 7 7 PHYSICIAN U DEPARTMEN S, PLLC T VISIT HIGH/URGE NT SEVERITY EMERGENCY 64541 [facility] 7 7 [facility] DEPARTMEN INC T VISIT LOW/MODER SEVERITY HOSPITAL BE[facility] - 7 7 [facility] OUTPATIEN INC T HOSPITAL BELL - 6 6 [facility] INPATIENT INC OFFICE 04351 [facility]RS[facility] WONG CONSULTAT 6 6 HEALTH ION MEDICAL NEW/ESTAB GROUP PATIENT 15 MIN HOSPITAL BE[facility] - 6 6 [facility] OUTPATIEN INC T HOSPITAL BELL - 6 6 [facility] OUTPATIEN INC T EMERGENCY 48580 [facility] EDDY 6 6 PHYSICIAN DEPARTMEN S, PLLC T VISIT MODERATE SEVERITY EMERGENCY 95031 [facility] 6 6 [facility] DEPARTMEN INC T VISIT LOW/MODER SEVERITY OFFICE 89377 [facility] DANII OUTPATIEN 6 6 PHYSICIAN T NEW 45 S GROUP MINUTES OFFICE 61105 [facility] OUTPATIEN 5 5 REGIONAL T VISIT MEDICAL 15 C MINUTES
--- OUTSIDE RECORDS SUMMARY | 2016-09-01 01:24 | External Medical Summary Rpt ---
Demographics Preferred Language Taiwanese Marital Status Unknown Restorationist Affiliation Unknown Race Unknown Ethnic Group Unknown Author Author , Organization [employer] Address Unknown Phone Unavailable Purpose Continuity of Care Document - through 2016 Immunization No patient found.
--- OUTSIDE RECORDS SUMMARY | 2016-09-01 01:24 | External Medical Summary Rpt ---
Author Author [employer], [employer] Organization [employer] Address Unknown Phone Unavailable
--- OUTSIDE RECORDS SUMMARY | 2016-09-01 01:24 | External Medical Summary Rpt ---
Demographics Preferred Language Marshallese Marital Status Unknown Congregation Affiliation Unknown Race Unknown Ethnic Group Unknown Author Author , Organization [employer] Address Unknown Phone Unavailable Purpose Continuity of Care Document - through 2016 Immunization No patient found.
--- OUTSIDE RECORDS SUMMARY | 2016-09-01 01:33 | External Medical Summary Rpt ---
Author Author , Organization [employer] Address Unknown Phone Unavailable Care Team Providers Care Publicity Director Name Role Phone [facility] Unavailable Unavailable [facility], [facility] Unavailable Unavailable CRANBERRY ISLES, [facility] Unavailable Unavailable MEDICAL GROUP, [facility] CARUSO, CARUSO Unavailable Unavailable DANIELLE, [...] MEDICAL C, [facility], Unavailable Unavailable [facility] MOJ[place], MOJICA Unavailable Unavailable [facility] Un[facility] Unavailable [facility], [facility] INDER FADI Unavailable [...] Diagnosis DOS Provider Status R300 DYSURIA 07-17-2016 [facility] Z391 ENCNTR FOR 07-17-2016 [facility] CARE & HEALTH EXAMINATION MEDICAL LACTATING GROUP MOTHER Z392 ENCOUNTER 07-17-2016 RESTORATIONIST FOR ROUTINE HEALTH MEDICAL FOLLOW-UP GROUP O133 GESTATIONAL 06-25-2016 RESTORATIONIST HTN W/O ANESTHESIA SIG [facility] PROTEINURIA THIRD TRI O80 ENCOUNTER 06-25-2016 RESTORATIONIST FOR ANESTHESIA FULL-TERM PSC UNCOMPLICAT ED DELIVERY Z370 SINGLE LIVE 06-25-2016 [facility] ANESTHESIA P[facility] O134 GESTATIONAL 06-24-2016 RESTORATIONIST HTN W/O HEALTH SIGNIF [place] PROTEINURIA COMP CB [id number] MAT CARE 06-24-2016 RESTORATIONIST OT HEALTH KNWN/SUSP MEDICAL POOR FTL GROUP GRTH 3RD TRI UNS O665 ATTEMPTED 06-24-2016 RESTORATIONIST APPLICATION HEALTH VACUUM MEDICAL EXTRACTOR & GROUP FORCEPS [id number] L & D COMP 06-24-2016 RESTORATIONIST CORD AROUND HEALTH NECK W/O [place] COMPRS NA/UNS Z2913 ENCOUNTER 06-24-2016 RESTORATIONIST FOR HEALTH PROPHYLACTI [place] C RHO IMMUNE GLOBULIN Z3A36 36 WEEKS 06-24-2016 RESTORATIONIST GESTATION HEALTH OF MEDICAL GROUP O163 UNSPECIFIED 06-20-2016 RESTORATIONIST MATERNAL HEALTH HYPERTENSIO [place] N 3RD TRIMESTER [id number] OTHER SPEC 06-20-2016 [facility] HEALTH RELATED MEDICAL COND 3RD GROUP TRIMESTER O288 OTH 06-20-2016 [facility]IST ABNORMAL HEALTH FIND ON [place] SCREENING MOTHER [id number] MATERNAL 06-20-2016 RESTORATIONIST CARE OT HEALTH SPEC MEDICAL PROB 3RD GROUP TRI NA/UNS D94559 PERSONAL 06-20-2016 RESTORATIONIST HISTORY OF HEALTH URINARY [place] CALCULI Z3A35 35 WEEKS 06-17-2016 [facility] GROUP O289 UNS 06-13-2016 [facility]ATIONIST ABNORMAL HEALTH FIND ON [place] SCREENING MOTHER [id number] OLIGOHYDRAM 06-13-2016 RESTORATIONIST NIOS THIRD HEALTH TRIMESTER MEDICAL NA/UNS GROUP E669 OBESITY 06-10-2016 RESTORATIONIST UNSPECIFIED HEALTH MEDICAL GROUP Z3A34 34 WEEKS 06-10-2016 [facility] GROUP R109 UNSPECIFIED 06-05-2016 RESTORATIONIST ABDOMINAL HEALTH PAIN MEDICAL GROUP Z3A33 33 WEEKS 06-03-2016 [facility]IST GESTATION [facility] OF MEDICAL GROUP O210 MILD 05-28-2016 [facility]OR[facility]IST HYPEREMESIS [facility]ALTH [facility] Z418 ENC OTH 05-28-2016 RESTORATIONIST PROC HEALTH PURPOSES MEDICAL OTH THAN GROUP REMEDY HLTH STATE N1330 UNSPECIFIED 05-25-2016 [facility] HYDRONEPHRO [facility] ASS SIS O4443 LOW LYING 05-25-2016 [facility] NOS/WO IMAGING ASS HEMORRHAGE 3RD TRIM O4703 FALSE LABOR 05-25-2016 [facility] CMPLETE INC WEEKS GEST 3RD TRI Z331 05-25-2016 [facility] INCIDENTAL IMAGING ASS Z3A32 32 WEEKS 05-25-2016 [facility] GE[facility]ATION [facility] OF INC N23 UNSPECIFIED 05-16-2016 [facility] COLIC PLLC Z59824 05-16-2016 [facility], RENAL PLLC DISEASE THIRD TRIMESTER N507MYQ STRAIN 05-16-2016 [facility] & TENDON INC NECK LEVL INIT ENC O24551S STRAIN 05-16-2016 [facility] FASCIA & INC TENDON LOW BACK INITIAL U75792X UNSPECIFIED 05-16-2016 [facility] SPR[facility] LEFT HIP INC INITIAL ENCOUNTER Z3480 ENC 05-15-2016 [facility] SUPERVISION PHYSICIANS OTH NORMAL GROUP PREG [...] MEM HOSP & URETRL INC CALCULOUS OBST J08762 OTHER SPEC 03-31-2016 [facility] RELATED INC COND 2ND TRIMESTER Z3A26 26 WEEKS 03-31-2016 [facility] OF INC [id number] MAT CARE 03-24-2016 [facility] KNWN/SUSP MEDICAL POOR FTL GROUP GRTH 2ND TRI UNS Z3A23 23 WEEKS 03-24-2016 [facility] GROUP U55266 SUPERVISION 03-21-2016 [facility] OT HIGH PHYSICIANS RISK PREG GROUP SECOND TRIMESTER Z3A21 21 WEEKS 03-21-2016 [facility] GESTATION PHYSICIANS OF GROUP O2692 03-20-2016 [facility], CONDITIONS PLLC UNS 2ND TRIMESTER Z3A24 24 WEEKS 03-20-2016 [facility] GE[facility]ATION [facility] OF INC Z3201 ENCOUNTER 03-05-2016 [facility] FOR [facility] GROUP TEST RESULT POSITIVE 64683 ABDOMINAL 07-05-2014 [facility] OTHER REGIONAL SPECIFIED MEDICAL C SITE 13133 ABDOMINAL 05-09-2014 [facility] UNSPECIFIED PLLC [...] ia de te s n re d ZO 13 04 04 7. 7 00 RI Ac LP 66 -0 -2 00 00 TE ti ID 80 2- 8- 0 01 ve EM 00 20 20 17 AI 80 17 17 61 D TA 1 40 PH RT AR RA MA TE CY 10 #3 93 MG 8 TA BL ET BU 10 03 04 30 [address] 37 -3 -2 .0 00 TE ti OP 00 1- 8- 00 01 ve IO 10 20 20 17 AI N 20 17 17 79 D HC 3 41 PH L AR XL MA CY 30 0 #3 MG 93 8 TA BL ET TE 51 03 04 20 3 00 RI Ac RC 67 -2 -2 .0 00 TE ti ON 21 3- 8- 00 01 ve AZ 30 20 20 17 AI OL 20 17 17 67 D E 0 68 PH 0. AR 8% MA CY CR EA #3 M 93 8 NO 68 03 04 21 28 00 RI Ac RE 46 -2 -2 .0 00 TE ti TH 20 3- 8- 00 01 ve IN 13 20 20 17 AI D- 28 17 17 67 D ET 1 70 PH H AR ES MA TR CY AD #3 1- 93 0. 8 02 MG SH 16 03 04 28 28 00 RI Ac AR 71 -1 -1 .0 00 TE ti OB 40 6- 4- 00 01 ve EL 44 20 20 17 AI 10 17 17 56 D 0. 4 04 PH 35 AR MA MG CY TA #3 BL 93 ET 8 NI 00 03 04 14 7 00 RI Ac TR 18 -2 -1 .0 00 TE ti OF 50 0- 4- 00 01 ve UR 12 20 20 17 AI AN 20 17 17 60 D TO 1 68 PH IN AR MA MO CY NO -M #3 CR 93 8 10 0 MG CL 16 03 04 90 30 00 RI Ac ON 72 -2 -1 .0 00 TE ti AZ 90 0- 4- 00 01 ve EP 13 20 20 17 AI AM 70 17 17 61 D 1 0 38 PH AR MG MA CY TA BL #3 ET 93 8 ZO 13 03 04 7. 7 00 RI Ac LP 66 -2 -1 00 00 TE ti ID 80 0- 4- 0 01 ve EM 00 20 20 17 AI 80 17 17 61 D TA 1 40 PH RT AR RA MA TE CY 10 #3 93 MG 8 TA BL ET OX 00 02 03 12 3 00 RI Ac YC 05 -2 -2 .0 00 TE ti OD 40 4- 4- 00 00 ve ON 55 20 20 18 AI E- 12 17 17 71 D AC 5 76 PH ET AR AM MA IN CY OP HE #7 N 89 5- 2 32 5 CL 16 02 03 60 30 00 [...] MG #1 60 TA 7 BL ET CL 16 02 03 14 [...] 02 03 [address] 37 -1 -1 .0 00 TE ti OP 00 4- 0- 00 00 ve IO 10 20 20 81 AI N 20 17 17 05 D HC 3 55 PH L AR XL MA CY 30 0 #1 MG 60 7 TA BL ET ZO 13 02 03 7. 7 00 [...] CY TA BL #[address] 00 01 02 30 7 00 RI Ac OM 60 -3 -2 .0 00 TE ti ET 35 1- 4- 00 00 ve BOJORQUEZ 43 20 20 80 AI ZI 82 17 17 87 D NE 1 40 PH AR 25 MA CY MG #1 TA 60 BL 7 ET CL 16 01 02 14 7 [...] TE ti AZ 90 9- 7- 00 01 ve EP 13 20 20 16 AI AM 70 17 17 71 D 1 0 62 PH AR MG MA CY TA BL #3 ET 93 8 ZO 13 01 02 7. 7 00 RI Ac LP 66 -1 -1 00 00 TE ti ID 80 9- 7- 0 01 ve EM 00 20 20 16 AI 80 17 17 47 D TA 1 86 PH RT AR RA MA TE CY 10 #3 93 MG 8 TA BL ET YARITZA 58 01 02 0. 1 00 RI Ac OS 16 -2 -1 50 00 TE ti TR 00 4- 7- 0 01 ve IX 84 20 20 16 AI 25 17 17 83 D TD 2 09 PH AP AR MA VA CY CC IN #3 E 93 SY 8 RI NG E ON 65 01 02 15 25 00 RI Ac DA 86 -2 -1 .0 00 TE ti NS 20 5- 7- 00 01 ve ET 39 20 20 16 AI RO 01 17 17 84 D N 0 61 PH OD AR T MA 4 CY MG #3 TA 93 BL 8 ET HY 00 01 02 [address] 40 -2 -1 .0 00 L- ti OC 60 5- 7- 00 02 MA ve OD 12 20 20 23 RT ON 40 17 17 88 -A 1 60 PH CE AR TA MA RI CY NO PH #5 91 7. 5- 32 5 Results Labs Lab Lab Date Result Refere Interp Status Commen Order Detail nces retati t Range on HCV Ab Ser Ql (06-27-2016 15:47) HCV Ab [id number] Non-[place] complet Ser 017 07 ctive ed Donr Ql 15:47 Non-[place] ctive SCT CBC W Diff pnl,unspecified Bld (06-27-2016 08:11) WBC 14.30 3.50-10 complet nRBC 017 10*3/mm .80 ed cor # 08:11 3 Bld RBC # 2 3.13 3.89-5. complet Bld 017 10*6/mm 14 ed Auto 08:11 3 Hgb 9.5 11.5-15 complet Bld-mCn 017 g/dL .5 ed c 08:11 Hct VFr 28.9 % 34.5-44 complet Bld 017 .0 ed Auto 08:11 MCV RBC 92.3 fL 80.0-99 complet Auto 017 .0 ed 08:11 MCH RBC 30.4 pg 27.0-31 complet Qn 017 .0 ed Auto 08:11 MCHC 32.9 32.0-36 complet RBC 017 g/dL .0 ed Auto-mC 08:11 nc RDW RBC 16.1 % 11.3-14 complet 017 .5 ed Auto-Rt 08:11 o RDW RBC 54.1 fl 37.0-54 complet Auto 017 .0 ed 08:11 PMV Bld 02-24-2 10.9 fL 6.0-12. complet Auto 017 0 ed 08:11 Platele -24-2 214 150-450 complet t # Bld 017 10*3/mm ed Auto 08:11 3 Neutrop -24-2 65.0 % 41.0-71 complet hils 017 .0 ed NFr Bld 08:11 Auto Lymphoc -24-2 27.1 % 24.0-44 complet ytes 017 .0 ed NFr Bld 08:11 Auto Monocyt 02-24-2 6.4 % 0.0-12. complet es NFr 017 0 ed Bld 08:11 Auto Eosinop -24-2 0.8 % 0.0-3.0 complet hil NFr 017 ed Bld 08:11 Auto Basophi -24-2 0.1 % 0.0-1.0 complet ls NFr 017 ed Bld 08:11 Auto Imm 24-2 0.6 % 0.0-0.6 complet Granulo 017 ed cytes 08:11 NFr Bld Neutrop 24-2 9.30 1.50-8. complet hils # 017 10*3/mm 30 ed Bld 08:11 3 Auto Lymphoc -24-2 3.87 0.60-4. complet ytes # 017 10*3/mm 80 ed Bld 08:11 3 Auto Monocyt -24-2 0.92 0.00-1. complet es # 017 10*3/mm 00 ed Bld 08:11 3 Auto Eosinop -24-2 0.12 0.10-0. complet hil # 017 10*3/mm 30 ed Bld 08:11 3 Auto Basophi 02-24-2 0.01 0.00-0. complet ls # 017 10*3/mm 20 ed Bld 08:11 3 Auto Imm 02-24-2 0.08 0.00-0. complet Granulo 017 10*3/mm 03 ed cytes # 08:11 3 Bld CBC W Diff pnl,unspecified Bld (06-26-2016 09:17) WBC 02-23-2 14.62 3.50-10 complet nRBC 017 10*3/mm .80 ed cor # 09:17 3 Bld RBC # -23-2 2.78 3.89-5. complet Bld 017 10*6/mm 14 ed Auto 09:17 3 Hgb -23-2 8.5 11.5-15 complet Bld-mCn 017 g/dL .5 ed c 09:17 Hct VFr 23-2 25.9 % 34.5-44 complet Bld 017 .0 ed Auto 09:17 MCV RBC -23-2 93.2 fL 80.0-99 complet Auto 017 .0 ed 09:17 MCH RBC 23-2 30.6 pg 27.0-31 complet Qn 017 .0 ed Auto 09:17 MCHC -23-2 32.8 32.0-36 complet RBC 017 g/dL .0 ed Auto-mC 09:17 nc RDW RBC 23-2 15.8 % 11.3-14 complet 017 .5 ed Auto-Rt 09:17 o RDW RBC 23-2 53.1 fl 37.0-54 complet Auto 017 .0 ed 09:17 PMV Bld 06-26-2 11.6 fL 6.0-12. complet Auto 017 0 ed 09:17 Platele 06-26-2 181 150-450 complet t # Bld 017 10*3/mm ed Auto 09:17 3 Neutrop 06-26-2 75.5 % 41.0-71 complet hils 017 .0 ed NFr Bld 09:17 Auto Lymphoc -23-2 15.9 % 24.0-44 complet ytes 017 .0 ed NFr Bld 09:17 Auto Monocyt 23-2 8.1 % 0.0-12. complet es NFr 017 0 ed Bld 09:17 Auto Eosinop -23-2 0.3 % 0.0-3.0 complet hil NFr 017 ed Bld 09:17 Auto Basophi -23-2 0.0 % 0.0-1.0 complet ls NFr 017 ed Bld 09:17 Auto Imm 23-2 0.2 % 0.0-0.6 complet Granulo 017 ed cytes 09:17 NFr Bld Neutrop 23-2 11.04 1.50-8. complet hils # 017 10*3/mm 30 ed Bld 09:17 3 Auto Lymphoc 02-23-2 2.32 0.60-4. complet ytes # 017 10*3/mm 80 ed Bld 09:17 3 Auto Monocyt 02-23-2 1.19 0.00-1. complet es # 017 10*3/mm 00 ed Bld 09:17 3 Auto Eosinop 02-23-2 0.04 0.10-0. complet hil # 017 10*3/mm 30 ed Bld 09:17 3 Auto Basophi 02-23-2 0.00 0.00-0. complet ls # 017 10*3/mm 20 ed Bld 09:17 3 Auto Imm 02-23-2 0.03 0.00-0. complet Granulo 017 10*3/mm 03 ed cytes # 09:17 3 Bld nRBC/10 02-23-2 0.0 0.0-0.0 complet 0 WBC 017 /100 ed Bld 09:17 WBC Manual- Rto CBC W Diff pnl,unspecified Bld (06-24-2016 10:55) [...] Drugs Ur Scn (06-03-2016 14:44) PCP Ur [id number] Negativ complet Ql Scn 017 09 e ed 14:44 Negativ e SCT Cocaine [id number] Negativ complet Ur Ql 017 09 e ed 14:44 Negativ e SCT Ampheta [id number] Negativ complet mines 017 09 e ed Ur Ql 14:44 Negativ e SCT Opiates 4775798 Negativ complet Ur Ql 017 09 e ed 14:44 Negativ e SCT Amphet+ [id number] Negativ complet Methamp 017 09 e ed het Ur 14:44 Negativ Ql e SCT Benzodi 7426829 Negativ complet az Ur 017 09 e ed Ql Scn 14:44 Negativ e SCT Tricycl 9477375 Negativ complet ics Ur 017 09 e ed Ql Scn 14:44 Negativ e SCT Methado 9971250 Negativ complet ne Ur 017 09 e ed Ql Scn 14:44 Negativ e SCT Barbitu 9756325 Negativ complet rates 017 09 e ed Ur Ql 14:44 Negativ Scn e SCT Oxycodo 2252214 Negativ complet ne Ur 017 09 e ed Ql Scn 14:44 Negativ e SCT Propoxy 2902890 Negativ complet ph Ur 017 09 e ed Ql 14:44 Negativ e SCT Bupreno 6934567 Negativ complet rphine 017 09 e ed SerPl-m 14:44 Negativ Cnc e SCT Cannabi 9207673 Negativ complet noids 017 09 e ed [...] UA Dipstick Pnl Ur (01-28-2016 19:47) Color 1965632 Yellow, complet Ur 016 09 Straw ed 19:47 Yellow color SCT Clarity [id number] Clear complet Ur 016 01 ed 19:47 Clear SCT pH Ur 5.5 5.0-8.0 complet Strip.a 016 ed uto 19:47 Sp Gr 1.015 1.005-1 complet Ur 016 .030 ed Strip 19:47 Glucose 9943896 Negativ complet Ur 016 09 e ed Strip-m 19:47 Negativ Cnc e SCT Ketones 2104496 Negativ complet Ur Ql 016 06 e ed Strip 19:47 Trace SCT Bilirub 3438931 Negativ complet Ur Ql 016 09 e ed Strip 19:47 Negativ e SCT Hgb Ur 7156975 Negativ complet Ql 016 09 e ed Strip.a 19:47 Negativ uto e SCT Prot Ur 1134065 Negativ complet Ql 016 09 e ed Strip 19:47 Negativ e SCT Leukocy 8217734 Negativ complet te 016 09 e ed esteras 19:47 Negativ e Ur Ql e SCT Strip.a uto Nitrite 6691732 Negativ complet Ur Ql 016 09 e [...] UA Dipstick Pnl Ur (01-28-2016 17:44) Color 9845461 Yellow, complet Ur 016 00 Red Straw ed 17:44 color SCT Clarity 4297634 Clear complet Ur 016 02 ed 17:44 Turbid SCT pH Ur <= 5.0 5.0-8.0 complet Strip.a 016 ed uto 17:44 Sp Gr >= 1.005-1 complet Ur 016 1.030 .030 ed Strip 17:44 Glucose 4434321 Negativ complet Ur 016 09 e ed Strip-m 17:44 Negativ Cnc e SCT Ketones 8776324 Negativ complet Ur Ql 016 09 e ed Strip 17:44 Negativ e SCT Bilirub 9659502 Negativ complet Ur Ql 016 09 e ed Strip 17:44 Negativ e SCT Hgb Ur 5816940 Negativ complet Ql 016 01 e ed Strip.a 17:44 Large uto SCT Prot Ur 30 Negativ complet Ql 016 mg/dL e ed Strip 17:44 (1+) Leukocy 1466608 Negativ complet te 016 09 e ed esteras 17:44 Negativ e Ur Ql e SCT Strip.a uto Nitrite 4980653 Negativ complet Ur Ql 016 09 e [...] 0.0 ed PABLO. 03:43 RATE,CA LC. Comment: THE eGFR IS AN ESTIMATED GLOMELULAR FILTRATION RATE Comment: BASED ON AN AVERAGE BODY SURFACE AREA OF 1.73M2. Comment: THIS CALCULATION IS NOT ACCURATE FOR PEDIATRIC PATIENTS, Comment: PATIENTS >70 YEARS OF AGE,OR PATIENTS WITH EXTREME BODY SIZE. Comment: >60 ML/MIN/1.73M2 = NORMAL Comment: <60 ML/MIN/1.73M2 = CHRONIC KIDNEY DISEASE Comment: <15 ML/MIN/1.73M2 = KIDNEY FAILURE Comment: AVERAGE EGFR FOLLOWS: Comment: AGE(YEARS) AVERAGE EGFR Comment: 20-39 116 ML/MIN Comment: 30-39 107 ML/MIN Comment: 40-49 99 ML/MIN Comment: 50-59 93 ML/MIN Comment: 60-69 85 ML/MIN UR IN HOUSE DRUG SCREEN (03-27-2014 14:30) [...] 014 ug/ML E ed NE 14:30 Comment: METHADONE CUT OFF CONCENTRATION - 300 Comment: THESE RESULTS PROVIDE ONLY A PRELIMINARY TEST RESULT. THERE Comment: IS A POSSIBILITY THAT OVER THE COUNTER DRUGS MAY INTERFERE Comment: WITH THE TEST. CONFORMITORY TEST CAN BE ORDERED AT THE Comment: DISCRETION OF THE PHYSICIAN. CLINICAL CONSIDERATION AND Comment: PROFESSIONAL JUDGEMENT SHOULD BE APPLIED TO ANY DRUG OF ABUSE Comment: TEST RESULT, PARTICULARY WHEN PRELIMINARY POSITIVE RESULTS ARE Comment: USED. THESE DRUG SCREEN RESULTS ARE NOT FOR LEGAL APPLICATIONS. URINE HCG (03-26-2014 18:00) URINE 11-23-2 NEGATIV [...] , TOTAL 014 G/DL ed 17:48 BUN 2 10 7-18 complet 014 MG/DL ed 17:48 GLOMELULAR PABLO. RATE,CALC. (03-26-2014 17:48) GLOMELU 125.8 60.0-13 complet LAR 014 ml/min 0.0 ed PABLO. 17:48 RATE,CA LC. Comment: THE eGFR IS AN ESTIMATED GLOMELULAR FILTRATION RATE Comment: BASED ON AN AVERAGE BODY SURFACE AREA OF 1.73M2. Comment: THIS CALCULATION IS NOT ACCURATE FOR PEDIATRIC PATIENTS, Comment: PATIENTS >70 YEARS OF AGE,OR PATIENTS WITH EXTREME BODY SIZE. Comment: >60 ML/MIN/1.73M2 = NORMAL Comment: <60 ML/MIN/1.73M2 = CHRONIC KIDNEY DISEASE Comment: <15 ML/MIN/1.73M2 = KIDNEY FAILURE Comment: AVERAGE EGFR FOLLOWS: Comment: AGE(YEARS) AVERAGE EGFR Comment: 20-39 116 ML/MIN Comment: 30-39 107 ML/MIN Comment: 40-49 99 ML/MIN Comment: 50-59 93 ML/MIN Comment: 60-69 85 ML/MIN AMYLASE (03-26-2014 17:48) AMYLASE 58 U/L 25-115 complet 014 ed 17:48 CBC/NO DIFF+ PLATELET (03-24-2014 08:35) WBC 03-24-2 9.6 3.0-11. complet 014 K/UL 3 ed 08:35 HCT 03-24-2 36.5 % 29.9-45 complet 014 .5 ed 08:35 MCV 03-24-2 94.5 fl 78.2-10 complet 014 1.8 ed [...] 26.4-33 complet 014 .3 ed 15:09 MCHC 19-2 33.0 32.5-35 complet 014 g/dl .3 ed 15:09 RDW 19-2 14.8 % 10.1-16 complet 014 .2 ed 15:09 PLATELE 19-2 235 122-454 complet T 014 K/UL ed 15:09 EOS# 11-19-2 0.1 0.0-0.9 complet 014 K/ul ed 15:09 BASO# 11-19-2 0.1 0.0-0.2 complet 014 K/ul ed 15:09 BASO% 19-2 0.8 % 0.0-2.0 complet 014 ed 15:09 NEUT # -19-2 3.7 2.7-6.9 complet 014 K/ul ed 15:09 LYMPH# 19-2 2.3 0.4-3.9 complet 014 K/ul ed 15:09 MONOS# 19-2 0.6 0.2-0.6 complet 014 K/ul ed 15:09 WBC 19-2 6.7 3.0-11. complet 014 K/UL 3 ed 15:09 DAU10 (05-13-2012 00:54) OPIATE 05-13- NEGATIV NEGATIV Normal complet SCREEN 013 E E ed 00:54 OXYCODO 05-13- NEGATIV NEGATIV Normal complet NE SCR 013 E E ed 00:54 METHAQU 05-13- NEGATIV NEGATIV Normal complet ALONE 013 E E ed SCR 00:54 BARBITU 05-13- POSITIV NEGATIV Abnorma complet RATE 013 E E l ed SCREEN 00:54 Comment: This test is for Medical Purpose Only. Chain of Custody is Comment: required for drug testing for legal use. PHENCYC 05-13- NEGATIV NEGATIV Normal complet LIDINE 013 E E ed SCREEN 00:54 AMPHETA 05-13- NEGATIV NEGATIV Normal complet MINE 013 E E ed SCREEN 00:54 BENZODI 05-13- NEGATIV NEGATIV Normal complet AZEPINE 013 E E ed SCREEN 00:54 COCAINE 05-13- NEGATIV NEGATIV Normal complet SCREEN 013 E E ed 00:54 METHADO 05-13- NEGATIV NEGATIV Normal complet NE 013 E E ed SCREEN 00:54 CANNABI NEGATIV NEGATIV Normal complet NOID 013 E E ed SCREEN 00:54 [facility] (UA W MICRO AND CULTURE) (05-13-2012 00:54) COLOR,U YELLOW Normal complet RINE 013 ed 00:54 APPEARA CLEAR Normal complet NCE,URI 013 ed NE 00:54 BLOOD, NEGATIV NEGATIV Normal complet URINE 013 E E ed 00:54 PH,URIN 6.0 4.5-8.0 Normal complet E 013 ed 00:54 SPECIFI 1.020 1.003-1 Normal complet C 013 .035 ed GRAVITY 00:54 , URINE PROTEIN NEGATIV NEGATIV Normal complet ,URINE 013 E mg/dL E ed 00:54 GLUCOSE NEGATIV NEGATIV Normal complet , URINE 013 E mg/dL E ed (UA) 00:54 KETONES 40 NEGATIV Abnorma complet ,URINE 013 mg/dL E l ed 00:54 NITRATE NEGATIV NEGATIV Normal complet ,URINE 013 E E ed 00:54 BILIRUB NEGATIV NEGATIV Normal complet IN,URIN 013 E E ed E 00:54 UROBILI 0.2 0.0-1.0 Normal complet NOGEN,U 013 E.H./dL ed RINE 00:54 LEUKOCY NEGATIV NEGATIV Normal complet TE 013 E E ed ESTERAS 00:54 E ,URINE CMP (05-13-2012 00:25) POTASSI 3.8 3.5-5.1 Normal complet UM 013 mmol/L ed 00:25 CHLORID 102.0 98-107 Normal complet E 013 mmol/L ed 00:25 CARBON 18 22-29 Below complet DIOXIDE 013 mmol/L low ed 00:25 normal ANION 16 8-16 Normal complet GAP 013 ed 00:25 BLOOD 10.0 6-20 Normal complet UREA 013 mg/dL ed NITROGE 00:25 N CREATIN 0.7 0.5-0.9 Normal complet INE 013 mg/dL ed 00:25 eGFR >*59 Normal complet 013 mL/min/ ed 00:25 1 Comment: An eGFR of <60 mL/min/1.73 m2 for three months or more is Comment: indicative of chronic kidney disease. Patients with eGFR Comment: values > or = 60 mL/min/1.73 m2 may have chronic kidney Comment: disease if evidence of persistent proteinuria is present. Comment: Reference: [email or web address] Comment: *Units are mL/min/1.73m2 BUN/CRE 14.3 7.0-25. Normal complet ATININE 013 0 ed RATIO 00:25 GLUCOSE 96 70-100 Normal complet 013 mg/dL ed 00:25 OSMOLAL 271 275-295 Below complet ITY,SULEMA 013 mOsm/L low ed CULATED 00:25 normal CALCIUM 10.0 8.4-10. Normal complet 013 mg/dL 2 ed 00:25 BILIRUB 0.1 0.0-1.2 Normal complet IN,TOTA 013 mg/dL ed L 00:25 ASPARTA 19 IU/L 0-32 Normal complet TE 013 ed AMINO 00:25 TRANSFE RASE ALANINE 15 IU/L 0-33 Normal complet 013 ed AMINOTR 00:25 ANSFERA SE PROTEIN 7.9 6.4-8.3 Normal complet , TOTAL 013 g/dL ed 00:25 ALBUMIN 4.5 3.5-5.2 Normal complet 013 g/dL ed 00:25 GLOBULI 3.4 1.5-3.8 Normal complet N 013 gm/dL ed 00:25 ALBUMIN 1.3 1.1-1.8 Normal complet /GLOBUL 013 ed IN 00:25 RATIO ALKALIN 62 IU/L 35-105 Normal complet E 013 ed PHOSPHA 00:25 TASE SODIUM 136 136-145 Normal complet 013 mmol/L ed 00:25 LIPASE (05-13-2012 00:25) LIPASE 01-10-2 21 u/L 13-60 Normal complet 013 ed 00:25 CBC WITH AUTO DIFF REFLEX (05-13-2012 00:25) NEUTROP -10-2 61.3 % 43.1-74 Normal complet HILS % 013 .8 ed (AUTO) 00:25 Comment: If a manual differential is indicated, submit order within Comment: 48 hours" BASOPHI -10-2 0.0 X 0.0-0.2 Normal complet LS # 013 10 3 ed (AUTO) 00:25 LYMPHOC -10-2 28.9 % 17.6-40 Normal complet YTES % 013 .8 ed (AUTO) 00:25 MONOCYT -10-2 5.4 % 4.4-11. Normal complet ES % 013 0 ed (AUTO) 00:25 EOSINOP -10-2 1.6 % 0.0-5.8 Normal complet HILS % 013 ed (AUTO) 00:25 BASOPHI -10-2 0.3 % 0-1.6 Normal complet LS % 013 ed (AUTO) 00:25 NEUTROP -10-2 5.2 X 1.8-7.0 Normal complet HILS # 013 10 3 ed (AUTO) 00:25 LYMPHOC -10-2 2.5 X 1.0-3.3 Normal complet YTES # 013 10 3 ed (AUTO) 00:25 MONOCYT -10-2 0.5 X 0.3-0.9 Normal complet ES # 013 10 3 ed (AUTO) 00:25 EOSINOP -10-2 0.1 X 0.0-0.5 Normal complet HILS # 013 10 3 ed (AUTO) 00:25 WBC -10-2 8.5 X 4.8-10. Normal complet (WHITE 013 10 3 8 ed BLOOD 00:25 CELL) RED -10-2 4.58 X 4.20-5. Normal complet BLOOD 013 10 6 40 ed COUNT 00:25 HEMOGLO -10-2 13.7 12.0-16 Normal complet BIN 013 g/dL .0 ed 00:25 HEMATOC -10-2 43.4 % 37.0-47 Normal complet RIT 013 .0 ed 00:25 MCV -10-2 94.7 fL 81-99 Normal complet 013 ed 00:25 MCH -10-2 29.8 pg 27-31 Normal complet 013 ed 00:25 MCHC 31.5 32-36 Below complet 013 g/dL low ed 00:25 normal RDW 14.6 % 11.5-14 Above complet 013 .5 high ed 00:25 normal PLATELE 271 x10 130-400 Normal complet T COUNT 013 3 ed 00:25 MEAN 7.9 fL 6.0-10. Normal complet PLATELE 013 0 ed T 00:25 VOLUME STREP SCREEN (03-22-2012 02:28) Strep A NEGATIV NEGATIV Normal complet 012 E E ed 02:28 Comment: CULTURE SENT FOR CONFIRMATION INFLUENZA VIRUS A/B DIRECT IF TST (03-22-2012 02:28) Influen NEGATIV NEGATIV Normal complet za A 012 E E ed Antigen 02:28 Comment: Cell Culture is recommended for confirmation of negative Comment: results. Influen NEGATIV NEGATIV Normal complet za B 012 E E ed Antigen 02:28 Comment: Cell Culture is recommended for confirmation of negative Comment: results. STREP SCREEN CONFIRMATION (03-22-2012 02:28) [facility] Specime complet l 012 n: ed Report 02:28 OTHER-S PECIFY Clinica Collect complet l 012 ed: ed Report 02:28 012 02:28 Clinica Status: complet l 012 Final ed Report 02:28 Last Updated : 012 22:22 Clinica CUL RES complet l 012 ed Report 02:28 (Final) Clinica Negativ complet l 012 e for ed Report 02:28 Beta Hemolyt ic Strep at 24 hrs Clinica Negativ complet l 012 e for ed Report 02:28 Beta Hemolyt ic Strep at 48 hrs Procedures Procedure DOS Code Location Performer Comment POSTPARTU [address] MEDICAL SEPARATE GROUP PROCEDURE CUL BACT [address] METHS DEFINITIV E EA ISOL CULTURE 54459 RESTORATIONIST RESTORATIONIST BACTERIAL [address] [facility] QUANTTATI VE COLONY COUNT URINE CULTURE 79798 RESTORATIONIST [facility]IST TYPING 7 [facility]MMUN[facility] IC OTH/THN IMMUNOFLU ORES URNLS DIP 98416 RESTORATIONIST RESTORATIONIST [facility] STICK/TAB [facility] LET REAGENT AUTO MICROSCOP Y SUSCEPTIB 91400 RESTORATIONIST RESTORATIONIST LTY STDY [facility] ANTIMICRB [facility] IAL MICRO/AGA R DILUTJ BREAST E0603 GOULDS GOULDS PUMP 7 DISCOUNT DISCTexxi MEDICAL [facility] 17371 RESTORATIONIST BOWMAN DISCHARGE 7 [facility] DAY MEDICAL MANAGEMEN GROUP T 30 MIN/< SBSQ 10488 [place] [address] [facility] C[facility]/DAY MEDICAL 15 GROUP MINUTES VAGINAL 52723 RESTORATIONIST B[facility] DELIVERY 7 [facility] ONLY MEDICAL GROUP NEURAXIAL 07480 RESTORATIONIST [place] LABOR 7 ANESTHESI ANALG/ANE A PSC S PLND VAGINAL DELIVERY 32209 RESTORATIONIST [place] BIOPHYSIC 7 HEALTH AL MEDICAL PROFILE GROUP W/O NON-STRES S TESTING DOPPLER 32913 RESTORATIONIST [place] VELOCIMET 7 HEALTH RY MEDICAL UMBILICAL GROUP ARTERY US PREG 66188 RESTORATIONIST [place] UTERUS 7 HEALTH REAL TIME MEDICAL F/U GROUP TRNSABDL PER FETUS INITIAL 22357 [place] [address] HEALTH CARE/DAY MEDICAL 30 GROUP MINUTES 26126 RESTORATIONIST RESTORATIONIST NONSTRESS 7 [facility] [facility] [address] RESTORATIONIST BOWMAN NONSTRESS 7 [facility] TEST MEDICAL GROUP 02843 RESTORATIONIST RESTORATIONIST NONSTRESS [address] [facility] [address] RESTORATIONIST DANIELLE BIOPHYSIC 7 HEALTH [place] MEDICAL PROFILE GROUP NON-STRES S TESTING [facility] G0378 RESTORATIONIST RESTORATIONIST OBSERVATI [address] [facility] ON [facility] SERVICE PER HOUR 98341 RESTORATIONIST DANIELEL BIOPHYSIC 7 HEALTH [place] MEDICAL PROFILE GROUP NON-STRES S TESTING CUL 43606 RESTORATIONIST RESTORATIONIST PRSMPTV 7 [facility] PTHGNC [facility] ORGANISM SCRN W/COLONY ESTIMJ IAADIADOO 08473 RESTORATIONIST RESTORATIONIST 7 [facility] STREPTOCO [facility] CCUS GROUP A 90038 RESTORATIONIST BOWMAN NONSTRESS 7 [facility] US PREG 67647 RESTORATIONIST RESTORATIONIST UTERUS 7 [facility] REAL TIME [facility] F/U TRNSABDL PER FETUS CALCULUS 49478 RESTORATIONIST RESTORATIONIST QUANTITAT 7 [facility] SUZAN [facility] CHEMICAL INJECTION J1170 RESTORATIONIST RESTORATIONIST 7 [facility] HYDROMORP [facility] PHIL UP TO 4 MG DRUG TEST 31562 RESTORATIONIST RESTORATIONIST PRSMV 7 [facility] QUAL [facility] INSTRMNT OPTCL OBS PER DAY INJ J0702 RESTORATIONIST RESTORATIONIST BETAMETHA 7 [facility] SONE [facility] ACETATE & PHOSPHATE 3 MG THER 69931 RESTORATIONIST RESTORATIONIST PROPH/DX 7 [facility] NJX EA [facility] SEQL IV PUSH SBST/DRUG FAC 01075 RESTORATIONIST RESTORATIONIST BIOPHYSIC 7 [facility] AL [facility] PROFILE W/O NON-STRES S TESTING INJECTION J2550 RESTORATIONIST RESTORATIONIST 7 [facility] PROMETHAZ [facility] INE HCL UP TO 50 MG OBSERVATI 26763 RESTORATIONIST BOWMAN ON CARE 7 HEALTH DISCHARGE MEDICAL GROUP MANAGEMEN T THERAPEUT 05833 RESTORATIONIST RESTORATIONIST IC 7 [facility] PROPHYLAC [facility] TIC/DX INJECTION SUBQ/IM THER 43570 RESTORATIONIST RESTORATIONIST PROPH/DX 7 [facility] NJX IV [facility] PUSH SINGLE/1S T SBST/DRUG THER 12237 RESTORATIONIST RESTORATIONIST PROPH/DX 7 [facility] NJX EA [facility] SEQL IV PUSH SBST/DRUG FAC INJECTION J2405 RESTORATIONIST RESTORATIONIST 7 [facility] HEALTH ONDANSETR [facility] ON HCL PER 1 MG INJECTION J2550 RESTORATIONIST RESTORATIONIST 7 [facility] HEALTH PROMETHAZ [facility] INE HCL UP TO 50 MG COMPREHEN 28896 RESTORATIONIST QUEST SIVE 7 HEALTH DIAGNOSTI METABOLIC CRANBERRY ISLES CS PANEL INCORPORA T INJ J0702 RESTORATIONIST RESTORATIONIST BETAMETHA 7 [facility] SONE [facility] ACETATE & PHOSPHATE 3 MG 94972 RESTORATIONIST RESTORATIONIST NONSTRESS 7 HEALTH HEALTH TEST [facility] INJECTION J1170 RESTORATIONIST RESTORATIONIST 7 [facility]ALTH HEALTH HYDROMORP [facility] PHIL UP TO 4 MG URNLS DIP 44171 RESTORATIONIST LAB INDER 7 HEALTH FADI STICK/TAB CRANBERRY ISLES [facility] REAGENT AUTO [facility]CROS[facility] Y HOSP[facility] G0378 RESTORATIONIST RESTORATIONIST OBSERVATI 7 [facility] ON [facility] SERVICE PER HOUR THERAPEUT 38146 RESTORATIONIST RESTORATIONIST IC 7 [facility]ALTH HEALTH INJECTION [facility] IV PUSH EACH NEW DRUG INJECTION J2790 RESTORATIONIST COLBY RHO D IG 7 HEALTH HUMAN MEDICAL FULL DOSE GROUP 300 MCG THERAPEUT 12453 RESTORATIONIST BOWMAN IC 7 HEALTH PROPHYLAC MEDICAL TIC/DX GROUP INJECTION SUBQ/IM DOPPLER 45470 [facility] GREGG VELOCIMET 7 [place] [address] BELL LUU INFUSION 7 [facility] THERAPY/P INC INC ROPHYLAXI S /DX 1ST TO 1 HR URNLS DIP 59132 [facility] LUU 7 [facility] STICK/TAB INC [place] [address] [facility] RETROPERI 7 [facility] TONEAL INC [place] [address] [place] RETROPERI 7 MEDICAL TONEAL IMAGING REAL TIME ASS W/IMAGE LIMITED COMPREHEN 29194 [facility] SIVE 7 [facility] METABOLIC INC INC PANEL UNCLASSIF J3490 [facility] IED DRUGS 7 [place] [address] [facility] LUU 7 [facility] UTERUS INC INC LIMITED 1/> FETUSES CALCULUS 18742 [facility] XRAY 7 [facility] DIFFRACTI INC INC ON ANTIBODY 61516 [facility] SCREEN 7 [facility] RBC EACH INC INC SERUM TECHNIQUE 83298 [facility]UU BIOPHYSIC 7 [facility] AL INC INC PROFILE W/O NON-STRES S TESTING THER 75764 [facility] PROPH/DX 7 [facility] NJX EA INC INC SEQL IV PUSH SBST/DRUG FAC THERAPEUT 26295 [facility] L[facility] IC 7 [facility] INJECTION INC [place] [address] [facility] INFUSION 7 [facility] THERAPY/P INC INC ROPHYLAXI S /DX 1ST TO 1 HR CULTURE 75260 [facility] BACTERIAL 7 [facility] INC INC QUANTTATI VE COLONY COUNT URINE URNLS DIP 77678 [facility] LUU 7 [facility] STICK/TAB INC INC LET REAGENT AUTO MICROSCOP Y THERAPEUT 50167 [facility] LUU IC 7 [facility] PROPHYLAC INC INC TIC/DX INJECTION SUBQ/IM THER 17330 [facility] PROPH/DX 7 [facility] NJX IV INC INC PUSH SINGLE/1S T SBST/DRUG URNLS DIP 87628 [facility] LUU 7 [facility] STICK/TAB INC INC [place] [address] [facility] LUU UREA 7 [facility] NITROGEN INC INC QUANTITAT SUZAN UNCLASSIF J3490 [facility] IED DRUGS 7 [facility] INC INC COLLECTIO 27325 [facility] N VENOUS 7 [facility] BLOOD INC INC VENIPUNCT URE THERAPEUT 30178 [facility] IC 7 [facility] INJECTION INC INC IV PUSH EACH NEW DRUG 88563 [facility] DANII NONSTRESS 7 PHYSICIAN TEST S GROUP CREATININ 61393 [facility] LUU E BLOOD 7 [facility] INC INC THERAPEUT 40668 [facility] IC 7 [facility] PROPHYLAC INC INC TIC/DX INJECTION SUBQ/IM UNCLASSIF J3490 [facility] IED DRUGS 7 [facility] INC INC OBSERVATI 75872 [facility] DANII ON CARE 6 PHYSICIAN DISCHARGE S GROUP MANAGEMEN T INITIAL 19448 [facility] DANII OBSERVATI 6 PHYSICIAN ON S GROUP CARE/DAY 50 MINUTES OBSERVATI 42260 [facility] DANII ON CARE 6 PHYSICIAN DISCHARGE S GROUP MANAGEMEN T HOSPITAL G0378 [facility] LUU OBSERVATI 6 [facility] ON INC INC SERVICE PER HOUR HOSPITAL G0378 BE[facility] LUU OBSERVATI 6 [facility] ON INC INC SERVICE PER HOUR DRUG TST G0477 BELL LUU PRESUMP;C 6 [facility] PBL BEING INC INC READ DC OPT OBV ONLY INITIAL 13506 [facility] DANII OBSERVATI 6 PHYSICIAN ON S GROUP CARE/DAY 30 MINUTES THERAPEUT 63127 [facility] LUU IC 6 [facility] PROPHYLAC INC INC TIC/DX INJECTION SUBQ/IM URNLS DIP 29785 [facility] LUU 6 [facility] STICK/TAB INC INC LET REAGENT AUTO MICROSCOP Y DRUG TST G0477 [facility] DANII PRESUMP;C 6 PHYSICIAN PBL BEING S GROUP READ DC OPT OBV ONLY IAADIADOO 09334 [facility] 5 REGIONAL INFLUENZA MEDICAL C URINE 39245 [facility] 5 REGIONAL TEST MEDICAL VISUAL C COLOR CMPRSN METHS URNLS DIP 23515 [facility] 5 REGIONAL STICK/TAB MEDICAL LET RGNT C NON-AUTO W/[place]CRSC[place] PRV 23587 [facility] OFFICE 5 REGIONAL REG MEDICAL SCHEDD C EVN WKEND/HOL IDAY HRS IAADIADOO 92013 [facility] 5 REGIONAL [place] [address] ROHAN BENNETTOS ABDOMEN & 5 [facility] W/O PLLC CONTRAST MATERIAL Encounters Encounter Start End Date Code Location Performer Type Date [facility] RESTORATIONIST - 7 7 HEALTH OUTPATIEN [facility] RESTORATIONIST - 7 7 HEALTH INPATIENT [facility] RESTORATIONIST - 7 7 HEALTH OUTPATIEN [facility] OFFICE 05336 RESTORATIONIST BOWMAN OUTPATIEN 7 7 HEALTH T VISIT MEDICAL 15 [facility] MINUTES OFFICE 02817 RESTORATIONIST BOWMAN OUTPATIEN 7 7 HEALTH T VISIT MEDICAL 15 [facility] RESTORATIONIST - 7 7 HEALTH OUTPATIEN [facility] OFFICE 70499 RESTORATIONIST DANIELLE OUTPATIEN 7 7 HEALTH T VISIT MEDICAL 15 [facility] RESTORATIONIST - 7 7 HEALTH OUTPATIEN [facility] OFFICE 48248 RESTORATIONIST DANIELLE OUTPATIEN 7 7 HEALTH T VISIT MEDICAL 15 [facility] MINUTES OFFICE 98708 RESTORATIONIST BOWMAN OUTPATIEN 7 7 HEALTH T VISIT MEDICAL 15 [facility] MINUTES OFFICE 25812 RESTORATIONIST BOWMAN OUTPATIEN 7 7 HEALTH T VISIT MEDICAL 15 [facility] RESTORATIONIST - 7 7 HEALTH OUTPATIEN [facility] OFFICE 16539 RESTORATIONIST BOWMAN OUTPATIEN 7 7 HEALTH T NEW 45 MEDICAL MINUTES [facility] BELL - 7 7 [facility] OUTPATIEN INC T EMERGENCY 72093 [facility] EDDY DEPT 7 7 PHYSICIAN VISIT S, PLLC HIGH SEVERITY& THREAT FUNJ EMERGENCY 64830 [facility] 7 7 [facility] DEPARTMEN INC T VISIT MODERATE SEVERITY [facility]OSPITAL BELL - 7 7 [facility] OUTPATIEN INC T OFFICE 37737 [facility] DANII WILKERSONEN 7 7 PHYSICIAN T VISIT S GROUP 15 MINUTES EMERGENCY 06964 [facility] MOJICA DEPT 7 7 PHYSICIAN VISIT S, PLLC HIGH SEVERITY& THREAT FUNCJ EMERGENCY 01047 [facility] 7 7 [facility] DEPARTMEN INC T VISIT MODERATE SEVERITY HOSPITAL BELL - 7 7 [facility] OUTPATIEN INC T HOSPITAL BELL - 7 7 [facility] OUTPATIEN INC T EMERGENCY 22168 [facility] HENNING 7 7 PHYSICIAN U DEPARTMEN S, [facility] T VIS[facility] HIGH/URGE NT SEVERITY EMERGENCY 56689 [facility] 7 7 [facility] DEPARTMEN INC T VISIT LOW/MODER SEVERITY HOSPITAL BLEL - 6 6 [facility] INPATIENT INC OFFICE 78489 URSULA WONG CONSULTAT 6 6 HEALTH ION MEDICAL NEW/ESTAB GROUP PATIENT 15 MIN HOSPITAL BELL - 6 6 [facility] OUTPATIEN INC T EMERGENCY 00644 [facility]END[facility] EDDY 6 6 PHYSICIAN DEPARTMEN S, [facility] T VISIT MODERATE SEVERITY EMERGENCY 47267 [facility] 6 6 [facility] DEPARTMEN INC T VISIT LOW/MODER SEVERITY HOSPITAL BELL - 6 6 [facility] OUTPATIEN INC T OFFICE 70627 [facility] DANII OUTPATIEN 6 6 PHYSICIAN T NEW 45 S GROUP MINUTES OFFICE 25546 [facility] OUTPATIEN 5 5 REGIONAL T VISIT MEDICAL 15 C MINUTES
--- OUTSIDE RECORDS SUMMARY | 2016-09-01 01:33 | External Medical Summary Rpt ---
Author Author , Organization [employer] Address Unknown Phone Unavailable Care Team Providers Care Procurement Agent Name Role Phone MANDAEISM ANESTHESIA Unavailable Unavailable [facility], MANDAEISM ANESTHESIA [facility] Unavailable Unavailable [place], [facility] Unavailable Unavailable [facility], [facility] CARUSO, CARUSO Unavailable Unavailable DANIELLE, DANIELLE Unavailable Unavailable BROWN MARICEL, CHRISTINE MARICEL Unavailable Unavailable FOY, FOY Unavailable Unavailable ORLANDO ORLANDO Unavailable Unavailable NUNUNUNU MITCHELL Unavailable Unavailable [facility] Unavailable [facility]available [facility] Unavailable Unavailable INC, [facility] HEMMER, HEMMER Unavailable Unavailable MARVIN WONG Unavailable Unavailable [facility] Unavailable Unavailable [facility], [facility], Unavailable Unavailable [facility] MOJICA, MOJICA Unavailable Unavailable [facility] INDER FADI Unavailable [...] Diagnosis DOS Provider Status R300 DYSURIA 07-17-2016 [facility] Z391 ENCNTR FOR 07-17-2016 MANDAEISM CARE & HEALTH EXAMINATION MEDICAL LACTATING GROUP MOTHER Z392 ENCOUNTER 07-17-2016 MAN[facility]EISM FOR ROUTINE HEALTH MEDICAL FOLLOW-UP GROUP O133 GESTATIONAL 06-25-2016 MANDAEISM HTN W/O ANESTHESIA SIG PSC PROTEINURIA THIRD TRI O80 ENCOUNTER 06-25-2016 MAN[facility] FOR ANESTHESIA FULL-TERM PSC UNCOMPLICAT ED DELIVERY Z370 SINGLE LIVE 06-25-2016 MANDAEISM ANESTHESIA PSC O134 GESTATIONAL 06-24-2016 MAN[facility]ISM HTN W/O HEALTH SIGNIF [place] PROTEINURIA COMP CB [id number] MAT CARE 06-24-2016 MANDAEISM OT HEALTH KNWN/SUSP MEDICAL POOR FTL GROUP GRTH 3RD TRI UNS O665 ATTEMPTED 06-24-2016 MAN[facility]EISM APPLICATION HEALTH VACUUM MEDICAL EXTRACTOR & GROUP FORCEPS [id number] L & D COMP 06-24-2016 [facility] CORD AROUND HEALTH NECK W/O [place] COMPRS NA/UNS Z2913 ENCOUNTER 06-24-2016 [facility] FOR HEALTH PROPHYLACTI [place] C RHO IMMUNE GLOBULIN Z3A36 36 WEEKS 06-24-2016 MANDAEISM GESTATION HEALTH OF MEDICAL GROUP O163 UNSPECIFIED 06-20-2016 [facility] MATERNAL HEALTH HYPERTENSIO [place] N 3RD TRIMESTER [id number] OTHER SPEC 06-20-2016 [facility] HEALTH RELATED MEDICAL COND 3RD GROUP TRIMESTER O288 OTH 06-20-2016 [facility] ABNORMAL HEALTH FIND ON [place] SCREENING MOTHER [id number] MATERNAL 06-20-2016 MAN[facility] CARE OT HEALTH SPEC MEDICAL PROB 3RD GROUP TRI NA/UNS X06031 PERSONAL 06-20-2016 MAN[facility]ISM HISTORY OF HEALTH URINARY [place] CALCULI Z3A35 35 WEEKS 06-17-2016 [facility] O289 UNS 06-13-2016 [facility] ABNORMAL HEALTH FIND ON [place] SCREENING MOTHER [id number] OLIGOHYDRAM 06-13-2016 MAN[facility]ISM NIOS THIRD HEALTH TRIMESTER MEDICAL NA/UNS GROUP E669 OBESITY 06-10-2016 [facility] UNSPECIFIED HEALTH MEDICAL GROUP Z3A34 34 WEEKS 06-10-2016 [facility] R109 UNSPECIFIED 06-05-2016 [facility] ABDOMINAL HEALTH PAIN MEDICAL GROUP Z3A33 33 WEEKS 06-03-2016 [facility] O210 MILD 05-28-2016 [facility] HYPEREMESIS [facility]ALTH [facility] Z418 ENC OTH 05-28-2016 MAN[facility] PROC HEALTH PURPOSES MEDICAL OTH THAN GROUP REMEDY HLTH STATE N1330 UNSPECIFIED 05-25-2016 [facility] HYDRONEPHRO [facility]ING ASS SIS O4443 LOW LYING 05-25-2016 [facility] NOS/WO IMAGING ASS HEMORRHAGE 3RD TRIM O4703 FALSE LABOR 05-25-2016 [facility] BEFORE [facility] CMPLETE INC WEEKS GEST 3RD TRI Z331 05-25-2016 [facility] INCIDENTAL IMAGING ASS Z3A32 32 WEEKS 05-25-2016 [facility]ATION [facility] OF INC N23 UNSPECIFIED 05-16-2016 [facility], COLIC PLLC S03633 05-16-2016 [facility] RELATED [facility]YSICI[facility], RENAL PLLC DISEASE THIRD TRIMESTER [id number] STRAIN 05-16-2016 [facility] & TENDON INC NECK LEVL INIT ENC X71461I STRAIN 05-16-2016 [facility] FASCIA & INC TENDON LOW BACK INITIAL Z84659E UNSPECIFIED 05-16-2016 [facility] LEFT HIP INC INITIAL ENCOUNTER Z3480 ENC 05-15-2016 [facility] SUPERVISION PHYSICIANS OTH NORMAL GROUP PREG UNS [...] MEM HOSP & URETRL INC CALCULOUS OBST O83976 OTHER SPEC 03-31-2016 [facility] RELATED INC COND 2ND TRIMESTER Z3A26 26 WEEKS 03-31-2016 [facility] OF INC [id number] MAT CARE 03-24-2016 [facility] KNWN/SUSP MEDICAL POOR FTL GROUP GRTH 2ND TRI UNS Z3A23 23 WEEKS 03-24-2016 [facility] OF MEDICAL GROUP R19566 SUPERVISION 03-21-2016 [facility] OT HIGH PHYSICIANS RISK PREG GROUP SECOND TRIMESTER Z3A21 21 WEEKS 03-21-2016 [facility] GESTATION PHYSICIANS OF GROUP O2692 03-20-2016 [facility], CONDITIONS PLLC UNS 2ND TRIMESTER Z3A24 24 WEEKS 03-20-2016 [facility]ATION [facility] OF INC Z3201 ENCOUNTER 03-05-2016 [facility] FOR PHYSICIANS GROUP TEST RESULT POSITIVE 07821 ABDOMINAL 07-05-2014 [facility] OTHER REGIONAL SPECIFIED MEDICAL C SITE 14414 ABDOMINAL 05-09-2014 [place], RADIOLOGY UNSPECIFIED PLLC [...] 03 04 30 30 00 RI Ac HI 37 -3 -2 .0 00 TE ti [...] 02 03 30 30 00 RI Ac HI 37 -1 -1 .0 00 TE ti [...] CY TA BL #1 ET 60 7 HI 00 01 02 30 7 00 RI [...] Ab Ser Ql (06-27-2016 15:47) HCV Ab [id number] Non-Catrachita complet Ser 017 07 ctive ed [...] Drugs Ur Scn (06-03-2016 14:44) PCP Ur [id number] Negativ complet Ql Scn 017 09 e ed 14:44 Negativ e SCT Cocaine [id number] Negativ complet Ur Ql 017 09 e ed 14:44 Negativ e SCT Ampheta [id number] Negativ complet mines 017 09 e ed Ur Ql 14:44 Negativ e SCT Opiates 9914862 Negativ complet Ur Ql 017 09 e ed 14:44 Negativ e SCT Amphet+ 7026945 Negativ complet Methamp 017 09 e ed het Ur 14:44 Negativ Ql e SCT Benzodi 3406124 Negativ complet az Ur 017 09 e ed Ql Scn 14:44 Negativ e SCT Tricycl 0416852 Negativ complet ics Ur 017 09 e ed Ql Scn 14:44 Negativ e SCT Methado 5922398 Negativ complet ne Ur 017 09 e ed Ql Scn 14:44 Negativ e SCT Barbitu 6296254 Negativ complet rates 017 09 e ed Ur Ql 14:44 Negativ Scn e SCT Oxycodo 3872581 Negativ complet ne Ur 017 09 e ed Ql Scn 14:44 Negativ e SCT Propoxy 2379985 Negativ complet ph Ur 017 09 e ed Ql 14:44 Negativ e SCT Bupreno 3495226 Negativ complet rphine 017 09 e ed SerPl-m 14:44 Negativ Cnc e SCT Cannabi 2883872 Negativ complet noids 017 09 e ed [...] UA Dipstick Pnl Ur (01-28-2016 19:47) Color [id number] Yellow, complet Ur 016 09 Straw ed 19:47 Yellow color SCT Clarity [id number] Clear complet Ur 016 01 ed 19:47 Clear SCT pH Ur 5.5 5.0-8.0 complet Strip.a 016 ed uto 19:47 Sp Gr 1.015 1.005-1 complet Ur 016 .030 ed Strip 19:47 Glucose 1468432 Negativ complet Ur 016 09 e ed Strip-m 19:47 Negativ Cnc e SCT Ketones 9058599 Negativ complet Ur Ql 016 06 e ed Strip 19:47 Trace SCT Bilirub [id number] Negativ complet Ur Ql 016 09 e ed Strip 19:47 Negativ e SCT Hgb Ur 3356694 Negativ complet Ql 016 09 e ed Strip.a 19:47 Negativ uto e SCT Prot Ur 8483287 Negativ complet Ql 016 09 e ed Strip 19:47 Negativ e SCT Leukocy 5685290 Negativ complet te 016 09 e ed esteras 19:47 Negativ e Ur Ql e SCT Strip.a uto Nitrite 3650462 Negativ complet Ur Ql 016 09 e [...] UA Dipstick Pnl Ur (01-28-2016 17:44) Color 2683288 Yellow, complet Ur 016 00 Red Straw ed 17:44 color SCT Clarity [id number] Clear complet Ur 016 02 ed 17:44 Turbid SCT pH Ur <= 5.0 5.0-8.0 complet Strip.a 016 ed uto 17:44 Sp Gr >= 1.005-1 complet Ur 016 1.030 .030 ed Strip 17:44 Glucose 7230569 Negativ complet Ur 016 09 e ed Strip-m 17:44 Negativ Cnc e SCT Ketones 5353273 Negativ complet Ur Ql 016 09 e ed Strip 17:44 Negativ e SCT Bilirub 1696008 Negativ complet Ur Ql 016 09 e ed Strip 17:44 Negativ e SCT Hgb Ur [id number] Negativ complet Ql 016 01 e ed Strip.a 17:44 Large uto SCT Prot Ur 30 Negativ complet Ql 016 mg/dL e ed Strip 17:44 (1+) Leukocy 0087294 Negativ complet te 016 09 e ed esteras 17:44 Negativ e Ur Ql e SCT Strip.a uto Nitrite [id number] Negativ complet Ur Ql 016 09 e [...] NOID 013 E E ed SCREEN 00:54 [facility] (UA W MICRO AND CULTURE) (05-13-2012 [...] Procedure DOS Code Location Performer Comment POSTPARTU [address] MEDICAL SEPARATE GROUP PROCEDURE CUL BACT [address] METHS DEFINITIV E EA ISOL CULTURE 62265 MANDAEISM MANDAEISM BACTERIAL 7 [facility] QUANTTATI VE COLONY COUNT URINE CULTURE 49860 MANDAEISM MANDAEISM TYPING 7 [facility] IMMUNOLOG [facility] IC OTH/THN IMMUNOFLU ORES URNLS DIP 69437 MANDAEISM MANDAEISM 7 [facility] STICK/TAB [facility] LET REAGENT AUTO MICROSCOP Y SUSCEPTIB 29415 MANDAEISM MANDAEISM LTY STDY 7 [facility]ALTH ANTIMICRB [facility] IAL MICRO/AGA R DILUTJ BREAST E0603 [facility] PUMP 7 DISCOUNT [facility] 75590 MANDAEISM BOWMAN DISCHARGE 7 HEALTH DAY MEDICAL MANAGEMEN GROUP T 30 MIN/< SBSQ [address]154 [place] [address] HEALTH CARE/DAY MEDICAL 15 GROUP MINUTES VAGINAL 85519 MANDAEISM BOWMAN DELIVERY 7 HEALTH ONLY MEDICAL GROUP NEURAXIAL 08664 MANDAEISM PETRONA LABOR 7 ANESTHESI ANALG/ANE A PSC S PLND VAGINAL DELIVERY 79909 MANDAEISM CARUSO BIOPHYSIC 7 HEALTH AL MEDICAL PROFILE GROUP W/O NON-STRES S TESTING DOPPLER 18152 MANDAEISM CARUSO VELOCIMET 7 HEALTH RY MEDICAL UMBILICAL GROUP ARTERY US PREG 82340 MANDAEISM CARUSO UTERUS 7 HEALTH REAL TIME MEDICAL F/U GROUP TRNSABDL PER FETUS INITIAL [address] [place] [address] HEALTH CARE/DAY MEDICAL 30 GROUP MINUTES 49206 MANDAEISM MANDAEISM NONSTRESS 7 HEALTH HEALTH TEST [facility] 62559 MANDAEISM BOWMAN NONSTRESS 7 HEALTH TEST MEDICAL GROUP 47473 MANDAEISM MANDAEISM NONSTRESS 7 HEALTH HEALTH TEST [facility] 56044 MANDAEISM DANIELLE BIOPHYSIC 7 HEALTH AL MEDICAL PROFILE GROUP NON-STRES S TESTING HOSPITAL G0378 MANDAEISM MANDAEISM OBSERVATI 7 HEALTH HEALTH ON [facility] SERVICE PER HOUR 96026 MANDAEISM DANIELLE BIOPHYSIC 7 HEALTH [place] MEDICAL PROFILE GROUP NON-STRES S TESTING CUL 44266 MANDAEISM MANDAEISM PRSMPTV 7 [facility] PTHGNC [facility] ORGANISM SCRN W/COLONY ESTIMJ IAADIADOO 03460 MANDAEISM MANDAEISM 7 [facility] STREPTOCO [facility] CCUS GROUP A [address] MANDAEISM BOWMAN NONSTRESS 7 HEALTH TEST MEDICAL GROUP US PREG 03503 MANDAEISM MANDAEISM UTERUS 7 [facility] REAL TIME [facility] F/U TRNSABDL PER FETUS CALCULUS 85457 MANDAEISM MANDAEISM QUANTITAT 7 [facility] SUZAN [facility] CHEMICAL INJECTION J1170 MANDAEISM MANDAEISM 7 [facility] HYDROMORP [facility] PHIL UP TO 4 MG DRUG TEST 16422 MANDAEISM MANDAEISM PRSMV 7 [facility] HEALTH QUAL [facility] INSTRMNT OPTCL OBS PER DAY INJ J0702 MANDAEISM MANDAEISM BETAMETHA 7 [facility] SONE [facility] ACETATE & PHOSPHATE 3 MG THER 96732 MANDAEISM MANDAEISM PROPH/DX 7 [facility] NJX EA [facility] SEQL IV PUSH SBST/DRUG FAC 86727 MANDAEISM MANDAEISM BIOPHYSIC 7 [facility] AL [facility] PROFILE W/O NON-STRES S TESTING INJECTION J2550 MANDAEISM MANDAEISM 7 [facility] PROMETHAZ [facility] INE HCL UP TO 50 MG OBSERVATI 88058 MANDAEISM BOWMAN ON CARE 7 HEALTH DISCHARGE MEDICAL GROUP MANAGEMEN T THERAPEUT 46650 MANDAEISM MANDAEISM IC 7 [facility] PROPHYLAC [facility] TIC/DX INJECTION SUBQ/IM THER 61231 MANDAEISM MANDAEISM PROPH/DX 7 [facility] NJX IV [facility] PUSH SINGLE/1S T SBST/DRUG THER 41329 MANDAEISM MANDAEISM PROPH/DX 7 [facility] NJX EA [facility] SEQL IV PUSH SBST/DRUG FAC INJECTION J2405 MANDAEISM MANDAEISM 7 HEALTH HEALTH ONDANSETR [facility] ON HCL PER 1 MG INJECTION J2550 MANDAEISM MANDAEISM 7 HEALTH HEALTH PROMETHAZ [facility] INE HCL UP TO 50 MG COMPREHEN 31172 MANDAEISM QUEST SIVE 7 HEALTH DIAGNOSTI METABOLIC [place] CS PANEL INCORPORA T INJ J0702 MANDAEISM MANDAEISM BETAMETHA 7 HEALTH HEALTH SONE [facility] ACETATE & PHOSPH[place] 3 [place] [address] MANDAEISM MANDAEISM NONSTRESS 7 HEALTH HEALTH TEST [facility] INJECTION J1170 MANDAEISM MANDAEISM 7 HEALTH HEALTH HYDROMORP [facility] PHIL UP TO 4 MG URNLS DIP 50944 MANDAEISM LAB INDER 7 HEALTH FADI STICK/TAB [facility] LET REAGENT AUTO MICROSCOP Y HOSPITAL G0378 MANDAEISM MANDAEISM OBSERVATI 7 HEALTH HEALTH ON [facility] SERVICE PER HOUR THERAPEUT 36631 MANDAEISM MANDAEISM IC 7 HEALTH HEALTH INJECTION [facility] IV PUSH EACH NEW DRUG INJECTION J2790 MANDAEISM COLBY RHO D IG 7 HEALTH HUMAN MEDICAL FULL DOSE GROUP 300 MCG THERAPEUT 20896 MANDAEISM BOWMAN IC 7 HEALTH PROPHYLAC MEDICAL TIC/DX GROUP INJECTION SUBQ/IM DOPPLER 16300 [facility] GREGG VELOCIMET 7 [place] [address] BELL LUU INFUSION 7 MEM HOSP MEM [facility]OS[facility] THERAPY/P INC INC ROPHYLAXI S /DX 1ST TO 1 HR URNLS DIP 17933 [facility] LUU 7 [facility] STICK/TAB INC [place] [address] [facility] LUU RETROPERI 7 [facility] TONEAL INC [place] [address] [place] RETROPERI 7 MEDICAL TONEAL IMAGING REAL TIME ASS W/IMAGE LIMITED COMPREHEN 84575 [facility] SIVE 7 [facility] METABOLIC INC INC PANEL UNCLASSIF J3490 [facility] IED DRUGS 7 [place] [address] [facility] ULU 7 MEM HOS[facility]OS[facility] UTERUS INC INC LIMITED 1/> FETUSES CALCULUS 75437 [facility] L[facility] XRAY 7 MEM H[facility]OS[facility] DIFFRACTI INC INC ON ANTIBODY 95637 [facility] SCREEN 7 [facility] RBC EACH INC INC SERUM TECHNIQUE 51676 [facility] LUU BIOPHYSIC 7 [facility]OS[facility] AL INC INC PROFILE W/O NON-STRES S TESTING THER 08758 [facility] PROPH/DX 7 [facility]OS[facility] NJX EA INC INC SEQL IV PUSH SBST/DRUG FAC THERAPEUT 25088 [facility] LUU IC 7 MEM [facility]OS[facility]OS[facility] INJECTION [place] [address] [facility] L[facility] INFUSION 7 [facility] THERAPY/P INC INC ROPHYLAXI S /DX 1ST TO 1 HR CULTURE 19711 [facility] LUU BACTERIAL 7 [facility]OS[facility] INC INC QUANTTATI VE COLONY COUNT URINE URNLS DIP 91001 [facility] LUU 7 [facility] HOS[facility]OS[facility] STICK/TAB INC INC LET REAGENT AUTO MICROSCOP Y THERAPEUT 84285 [facility] LUU IC 7 MEM HOS[facility]OS[facility] PROPHYLAC INC INC TIC/DX INJECTION SUBQ/IM THER 24841 [facility] PROPH/DX 7 [facility] NJX IV INC INC PUSH SINGLE/1S T SBST/DRUG URNLS DIP 91920 [facility] LUU 7 [facility] STICK/TAB INC INC [place] [address] [facility] L[facility] UREA 7 MEM HOS[facility] NITROGEN INC INC QUANTITAT SUZAN UNCLASSIF J3490 [facility] IED DRUGS 7 [facility]OS[facility] INC INC COLLECTIO 88121 [facility] N VENOUS 7 MEM H[facility]OS[facility] BLOOD INC INC VENIPUNCT URE THERAPEUT 63542 [facility] IC 7 MEM HOS[facility]OS[facility] INJECTION INC INC IV PUSH EACH NEW DRUG 29901 [facility] DANII NONSTRESS 7 PHYSICIAN TEST S GROUP CREATININ 65529 [facility] LUU E BLOOD 7 [facility]OS[facility] INC INC THERAPEUT 07629 [facility] LUU IC 7 [facility]OS[facility] PROPHYLAC INC INC TIC/DX INJECTION SUBQ/IM UNCLASSIF J3490 [facility] LUU IED DRUGS 7 [facility] INC INC OBSERVATI 39423 [facility] DANII ON CARE 6 PHYSICIAN DISCHARGE S GROUP MANAGEMEN T INITIAL 55861 [facility] DANII OBSERVATI 6 PHYSICIAN ON S GROUP CARE/DAY 50 MINUTES OBSERVATI 28107 [facility] DANII ON CARE 6 PHYSICIAN DISCHARGE S GROUP MANAGEMEN T HOSPITAL G0378 [facility] LUU OBSERVATI 6 MEM [facility] ON INC INC SERVICE PER HOUR HOSPITAL G0378 [facility] LUU OBSERVATI 6 [facility] ON INC INC SERVICE PER HOUR DRUG TST G0477 [facility] LUU PRESUMP;C 6 MEM HOS[facility]OS[facility] PBL BEING INC INC READ DC OPT OBV ONLY INITIAL 07027 [facility] DANII OBSERVATI 6 PHYSICIAN ON S GROUP CARE/DAY 30 MINUTES THERAPEUT 00973 [facility] LUU IC 6 MEM HOS[facility] PROPHYLAC INC INC TIC/DX INJECTION SUBQ/IM URNLS DIP 59147 [facility] LUU 6 MEM HOS[facility] STICK/TAB INC INC LET REAGENT AUTO MICROSCOP Y DRUG TST G0477 [facility] DANII PRESUMP;C 6 PHYSICIAN PBL BEING S GROUP READ DC OPT OBV ONLY IAADIADOO 02221 [facility] 5 REGIONAL INFLUENZA MEDICAL C URINE 54488 [facility] 5 REGIONAL TEST MEDICAL VISUAL C COLOR CMPRSN METHS URNLS DIP 52690 [facility] 5 REGIONAL STICK/TAB MEDICAL LET RGNT C NON-AUTO W/[place] [address]202 [facility] OFFICE 5 REGIONAL REG MEDICAL SCHEDD C EVN WKEND/HOL IDAY HRS IAADIADOO 58469 [facility] 5 REGIONAL [place] [address] ROHAN BENNETTOS ABDOMEN & 5 KELVIN PELVIS RADIOLOGY W/O PLLC CONTRAST MATERIAL Encounters Encounter Start End Date Code Location Performer Type Date [facility] MANDAEISM - 7 7 HEALTH OUTPATIEN [facility] MANDAEISM - 7 7 HEALTH INPATIENT [facility] MANDAEISM - 7 7 HEALTH OUTPATIEN [facility] OFFICE 43694 MANDAEISM BOWMAN OUTPATIEN 7 7 HEALTH T VISIT MEDICAL 15 [facility] MINUTES OFFICE 53899 MANDAEISM BOWMAN OUTPATIEN 7 7 HEALTH T VISIT MEDICAL 15 [facility] MANDAEISM - 7 7 HEALTH OUTPATIEN [facility] OFFICE 18413 MANDAEISM DANIELLE OUTPATIEN 7 7 HEALTH T VISIT MEDICAL 15 [facility] MANDAEISM - 7 7 HEALTH OUTPATIEN [facility] OFFICE 25978 MANDAEISM DANIELLE OUTPATIEN 7 7 HEALTH T VISIT MEDICAL 15 [facility] MINUTES OFFICE 10362 MANDAEISM BOWMAN OUTPATIEN 7 7 HEALTH T VISIT MEDICAL 15 [facility] MINUTES OFFICE 42721 MANDAEISM BOWMAN OUTPATIEN 7 7 HEALTH T VISIT MEDICAL 15 [facility] MANDAEISM - 7 7 HEALTH OUTPATIEN [facility] OFFICE 33799 MANDAEISM BOWMAN OUTPATIEN 7 7 HEALTH T NEW 45 MEDICAL MINUTES [facility] BELL - 7 7 MEM HOSP OUTPATIEN INC T EMERGENCY 24753 [facility] EDDY DEPT 7 7 PHYSICIAN VISIT S, PLLC HIGH SEVERITY& THREAT FUNJ EMERGENCY 71920 BE[facility] 7 7 [facility] DEPARTMEN INC T VISIT MODERATE SEVERITY HOSPITAL BELL - 7 7 [facility] OUTPATIEN INC T OFFICE 83234 [facility] DANII WILKERSONEN 7 7 PHYSICIAN T VISIT S GROUP 15 MINUTES EMERGENCY 29882 [facility] MOJICA DEPT 7 7 PHYSICIAN VISIT S, PLLC HIGH SEVERITY& THREAT FUNCJ EMERGENCY 79026 [facility] 7 7 MEM [facility] DEPARTMEN INC T VISIT MODERATE SEVERITY HOSPITAL BELL - 7 7 [facility] OUTPATIEN INC T HOSPITAL BELL - 7 7 [facility] OUTPATIEN INC T EMERGENCY 44652 [facility] HENNING 7 7 [facility] HIGH/URGE NT SEVERITY EMERGENCY 85511 [facility] 7 7 [facility] DEPARTMEN INC T VISIT LOW/MODER SEVERITY HOSPITAL BE[facility] - 6 6 [facility] INPATIENT INC OFFICE 53372 URSULA WONG CONSULTAT 6 6 HEALTH ION MEDICAL NEW/ESTAB GROUP PATIENT 15 MIN HOSPITAL BELL - 6 6 [facility] OUTPATIEN INC T EMERGENCY 08735 [facility]END[facility] EDDY 6 6 [facility] MODERATE SEVERITY EMERGENCY 34885 [facility] 6 6 [facility] DEPARTMEN INC T VISIT LOW/MODER SEVERITY HOSPITAL BELL - 6 6 [facility] OUTPATIEN INC T OFFICE 49074 [facility] DANII OUTPATIEN 6 6 PHYSICIAN T NEW 45 S GROUP MINUTES OFFICE 67457 [facility] OUTPATIEN 5 5 REGIONAL T VISIT MEDICAL 15 C MINUTES
--- OUTSIDE RECORDS SUMMARY | 2016-09-01 01:37 | External Medical Summary Rpt ---
Author Author , Organization [employer] Address Unknown Phone Unavailable Care Team Providers Care Parking Meter Servicer Name Role Phone SPIRITISM ANESTHESIA Unavailable Unavailable [facility], [facility] Unavailable Unavailable FRANCIS, [facility] Unavailable Unavailable MEDICAL GROUP, [facility] CARUSO, CARUSO Unavailable Unavailable DANIELLE, DANIELLE Unavailable Unavailable CHRISTINE CONNELLY, CHRISTINE MARICEL Unavailable Unavailable FOY, FOY Unavailable Unavailable ORLANDO, ORLANDO Unavailable Unavailable NUNU, NUNU Unavailable Unavailable [facility] Unavailable [facility] Unavailable Unavailable INC, [facility] HEMMER, HEMMER Unavailable Unavailable HIETT, HIETT Unavailable Unavailable [facility] Unavailable Unavailable MEDICAL C, [facility], Unavailable Unavailable [facility] MOJICA, MOJICA Unavailable Unavailable [facility], [facility] Unavailable Unavailable HOLD[facility], [facility] BOWMAN, BOWMAN Unavailable Unavailable [facility], Unavailable Unavailable [facility], [facility] Unavailable Unavailable PLL[facility], [facility] ZULEMA KELVIN, ZULEMA Unavailable Unavailable KELV[facility] Unavailable Unavailable INCORPORAT, [facility] PETRONA, PETRONA Unavailable Unavailable SOTINGEANU, Unavailable Unavailable SOTINGEANU Purpose Continuity of Care Document - 05-09-2014 through 2016 Problems Code Diagnosis DOS Provider Status R300 DYSURIA 07-17-2016 [facility] Z391 ENCNTR FOR 07-17-2016 SPIRITISM CARE & HEALTH EXAMINATION MEDICAL LACTATING GROUP MOTHER Z392 ENCOUNTER 07-17-2016 SPIRITISM FOR ROUTINE HEALTH MEDICAL FOLLOW-UP GROUP O133 GESTATIONAL 06-25-2016 SPIRITISM HTN W/O ANESTHESIA SIG PSC PROTEINURIA THIRD TRI O80 ENCOUNTER 06-25-2016 SPIRITISM FOR ANESTHESIA FULL-TERM PSC UNCOMPLICAT ED DELIVERY Z370 SINGLE LIVE 06-25-2016 SPIRITISM ANESTHESIA PSC O134 GESTATIONAL 06-24-2016 SPIRITISM HTN W/O HEALTH SIGNIF [place] PROTEINURIA COMP CB [id number] MAT CARE 06-24-2016 SPIRITISM OTH HEALTH KNWN/SUSP MEDICAL POOR FTL GROUP GRTH 3RD TRI UNS O665 ATTEMPTED 06-24-2016 SPIRITISM APPLICATION HEALTH VACUUM MEDICAL EXTRACTOR & GROUP FORCEPS [id number] L & D COMP 06-24-2016 SPIRITISM CORD AROUND HEALTH NECK W/O [place] COMPRS NA/UNS Z2913 ENCOUNTER 06-24-2016 SPIRITISM FOR HEALTH PROPHYLACTI [place] C RHO IMMUNE GLOBULIN Z3A36 36 WEEKS 06-24-2016 SPIRITISM GESTATION HEALTH OF MEDICAL GROUP O163 UNSPECIFIED 06-20-2016 SPIRITISM MATERNAL HEALTH HYPERTENSIO [place] N 3RD TRIMESTER K55858 OTHER SPEC 06-20-2016 SPIRITISM HEALTH RELATED MEDICAL COND 3RD GROUP TRIMESTER O288 OTH 06-20-2016 SPIRITISM ABNORMAL HEALTH FIND ON [place] SCREENING MOTHER [id number] MATERNAL 06-20-2016 SPIRITISM CARE OTH HEALTH SPEC MEDICAL PROB 3RD GROUP TRI NA/UNS H30984 PERSONAL 06-20-2016 SPIRITISM HISTORY OF HEALTH URINARY [place] CALCULI Z3A35 35 WEEKS 06-17-2016 SPIRITISM [facility] O289 UNS 06-13-2016 SPIRITISM ABNORMAL HEALTH FIND ON [place] SCREENING MOTHER Q2015W2 OLIGOHYDRAM 06-13-2016 SPIRITISM NIOS THIRD HEALTH TRIMESTER MEDICAL NA/UNS GROUP E669 OBESITY 06-10-2016 SPIRITISM UNSPECIFIED HEALTH MEDICAL GROUP Z3A34 34 WEEKS 06-10-2016 SPIRITISM [facility] R109 UNSPECIFIED 06-05-2016 SPIRITISM ABDOMINAL HEALTH PAIN MEDICAL GROUP Z3A33 33 WEEKS 06-03-2016 SPIRITISM [facility] GROUP O210 MILD 05-28-2016 SPIRITISM HYPEREMESIS [facility]ALTH [facility] Z418 ENC OTH 05-28-2016 SPIRITISM PROC HEALTH PURPOSES MEDICAL OTH THAN GROUP REMEDY HL STATE N1330 UNSPECIFIED 05-25-2016 [facility] HYDRONEPH[facility]ING ASS SIS O4443 LOW LYING 05-25-2016 [facility] NOS/WO IMAGING ASS HEMORRHAGE 3RD TRIM O4703 FALSE LABOR 05-25-2016 [facility]FORE [facility] CMPLETE INC WEEKS GEST 3RD TRI Z331 05-25-2016 [facility] INCIDENTAL IMAGING ASS Z3A32 32 WEEKS 05-25-2016 [facility]ATION [facility] OF INC N23 UNSPECIFIED 05-16-2016 [facility] COLIC PLLC Z16760 05-16-2016 [facility] RENAL PLLC DISEASE THIRD TRIMESTER [id number] STRAIN 05-16-2016 [facility] TENDON INC NECK LEVL INIT ENC O17241V STRAIN 05-16-2016 [facility] FASCIA & INC TENDON LOW BACK INITIAL [id number] UNSPECIFIED 05-16-2016 [facility] SPR[facility] LEFT HIP INC INITIAL ENCOUNTER Z3480 ENC 05-15-2016 [facility] OTH NORMAL GROUP PREG UNS TRIMESTER N200 CALCULUS OF 05-09-2016 [facility] INC R1031 RIGHT LOWER 05-09-2016 [facility] PAIN INC Z3A30 30 WEEKS 05-09-2016 [facility]ATION [facility] INC O9989 OT DZ & 05-08-2016 [facility] COND COMP [facility]YSICIANS, PREG PLLC CHILDBIRTH PUERPERIUM Z3483 ENC 05-08-2016 [facility] OTH NORMAL INC 3 TRIMESTER Z3A31 31 WEEKS 05-08-2016 [facility] GESTATION [facility], OF PLLC N132 HYDRONEPHRO 03-31-2016 [facility] SIS W/RENAL [facility] URETRL INC CALCULOUS OBST R83172 OTHER SPEC 03-31-2016 [facility] RELATED INC COND 2ND TRIMESTER Z3A26 26 WEEKS 03-31-2016 [facility]ATION [facility] INC [id number] MAT CARE 03-24-2016 [facility] HEALTH KNWN/SUSP MEDICAL POOR FTL GROUP GRTH 2ND TRI UNS Z3A23 23 WEEKS 03-24-2016 [facility] GROUP T28298 SUPERVISION 03-21-2016 [facility] OT HIGH PHYSICIANS RISK PREG GROUP SECOND TRIMESTER Z3A21 21 WEEKS 03-21-2016 [facility] GESTATION PHYSICIANS OF GROUP O2692 03-20-2016 [facility], CONDITIONS PLLC UNS 2ND TRIMESTER Z3A24 24 WEEKS 03-20-2016 [facility] INC Z3201 ENCOUNTER 03-05-2016 [facility] TEST RESULT POSITIVE 20073 ABDOMINAL 07-05-2014 [facility] OTHER REGIONAL SPECIFIED MEDICAL C SITE 88929 ABDOMINAL 05-09-2014 [facility] UNSPECIFIED PLL SITE Medications Na ND Rx Da Fi Fi [...] 03 04 30 30 00 RI Ac MD 37 -3 -2 .0 00 TE ti [...] 02 03 30 30 00 RI Ac MD 37 -1 -1 .0 00 TE ti [...] CY TA BL #1 ET 60 7 MD 00 01 02 30 7 00 RI [...] PH #5 91 7. 5- 32 5 Procedures Procedure DOS Code Location Performer Comment URNLS DIP 60488 SPIRITISM SPIRITISM [address] [place] [address] STICK/TAB [facility] LET REAGENT AUTO MICROSCOP Y SUSCEPTIB 99685 SPIRITISM SPIRITISM LTY STDY [facility] ANTIMICRB [facility] IAL MICRO/AGA R DILUTJ CULTURE 93256 SPIRITISM SPIRITISM BACTERIAL [address] [place] [address] QUANTTATI VE COLONY COUNT URINE CULTURE 21037 SPIRITISM SPIRITISM TYPING [address] [place] [address] IMMUNOLOG [facility] IC OTH/THN IMMUNOFLU ORES POSTPARTU [address] MEDICAL SEPARATE GROUP PROCEDURE CUL BACT 33710 SPIRITISM SPIRITISM AEROBIC [facility] ADDL [facility] METHS DEFINITIV E EA ISOL BREAST E0603 GOUL[facility] GOULDS PUMP 7 [facility] MEDICAL MEDICAL ANY [facility] 25195 SPIRITISM BERWIND DISCHARGE 7 [facility] MEDICAL MANAGEMEN GROUP T 30 MIN/< SBSQ [address] CARE/DAY MEDICAL 15 GROUP MINUTES VAGINAL 15104 SPIRITISM BERWIND DELIVERY 7 [facility] MEDICAL GROUP NEURAXIAL 14097 SPIRITISM PETRONA LABOR 7 ANESTHESI ANALG/ANE A PSC S PLND VAGINAL DELIVERY INITIAL [address] CARE/DAY MEDICAL 30 GROUP MINUTES DOPPLER 87656 SPIRITISM ZULY VELOCIMET [address] [facility] RY MEDICAL UMBILICAL GROUP [place] PREG 39[address] SPIRITISM [address]Y UTERUS [facility] REAL TIME MEDICAL F/U GROUP TRNSABDL PER FETUS 26176 SPIRITISM ZULY BIOPHYSIC [address] [place] [address] [place] MEDICAL PROFILE GROUP W/O NON-STRES S TESTING 44566 SPIRITISM SPIRITISM NONSTRESS [address] [place] [address] TEST [facility] 11101 SPIRITISM BOWMAN NONSTRESS 7 HEALTH TEST MEDICAL GROUP 24305 SPIRITISM SPIRITISM NONSTRESS 7 HEALTH HEALTH TEST [facility] 92073 SPIRITISM DANIELLE BIOPHYSIC 7 HEALTH AL MEDICAL PROFILE GROUP NON-STRES S TESTING HOSPITAL G0378 SPIRITISM SPIRITISM OBSERVATI 7 HEALTH HEALTH ON [facility] SERVICE PER HOUR 83240 SPIRITISM DANIELLE BIOPHYSIC 7 HEALTH AL MEDICAL PROFILE GROUP NON-STRES S TESTING IAADIADOO 83539 SPIRITISM SPIRITISM 7 HEALTH HEALTH STREPTOCO [facility] CCUS GROUP A CUL 33027 SPIRITISM SPIRITISM PRSMPTV 7 HEALTH HEALTH PTHGNC [facility] ORGANISM SCRN W/COLONY ESTIMJ 38425 SPIRITISM BOWMAN NONSTRESS 7 HEALTH TEST MEDICAL GROUP INJECTION J1170 SPIRITISM SPIRITISM 7 HEALTH HEALTH HYDROMORP [facility] PHIL UP TO 4 MG THERAPEUT 48247 SPIRITISM SPIRITISM IC 7 HEALTH HEALTH PROPHYLAC [facility] TIC/DX INJECTION SUBQ/IM CALCULUS 41693 SPIRITISM SPIRITISM QUANTITAT 7 HEALTH HEALTH SUZAN [facility] CHEMICAL US PREG 80257 SPIRITISM SPIRITISM UTERUS 7 HEALTH HEALTH REAL TIME [facility] F/U TRNSABDL PER FETUS 62249 SPIRITISM SPIRITISM BIOPHYSIC 7 HEALTH HEALTH AL [facility] PROFILE W/O NON-STRES S TESTING INJECTION J2550 SPIRITISM SPIRITISM 7 HEALTH HEALTH PROMETHAZ [facility] INE HCL UP TO 50 MG INJ J0702 SPIRITISM SPIRITISM BETAMETHA 7 HEALTH HEALTH SONE [facility] ACETATE & PHOSPHATE 3 MG DRUG TEST 03452 SPIRITISM SPIRITISM PRSMV 7 HEALTH HEALTH QUAL [facility] INSTRMNT OPTCL OBS PER DAY OBSERVATI 99372 SPIRITISM BOWMAN ON CARE 7 HEALTH DISCHARGE MEDICAL GROUP MANAGEMEN T THER 88542 SPIRITISM SPIRITISM PROPH/DX 7 [facility] HEALTH NJX EA [facility] SEQL IV PUSH SBST/DRUG FAC INJ J0702 SPIRITISM SPIRITISM BETAMETHA [facility] HEALTH SONE [facility] ACETATE & PHOSPHATE 3 MG THER 92023 SPIRITISM SPIRITISM PROPH/DX [facility] HEALTH NJX EA [facility] SEQL IV PUSH SBST/DRUG FAC COMPREHEN 74731 SPIRITISM QUEST SIVE 7 HEALTH DIAGNOSTI METABOLIC [facility] CS PANEL INCORPORA T INJECTION J2405 SPIRITISM SPIRITISM [facility] ONDANSETR [facility] ON HCL PER 1 MG INJECTION J2550 SPIRITISM SPIRITISM [facility] PROMETHAZ [facility] INE HCL UP TO 50 MG URNLS DIP 24161 SPIRITISM LAB INDER [facility] FADI STICK/TAB [facility] LET REAGENT AUTO MICROSCOP Y THER 08456 SPIRITISM SPIRITISM PROPH/DX [facility] NJX IV [facility] PUSH SINGLE/1S T SBST/DRUG THERAPEUT 92204 SPIRITISM SPIRITISM IC [facility] INJECTION [facility] IV PUSH EACH NEW DRUG 62603 SPIRITISM SPIRITISM NONSTRESS [facility] HEALTH TEST [facility] G0378 SPIRITISM SPIRITISM OBSERVATI [facility] HEALTH ON [facility] SERVICE PER HOUR INJECTION J1170 SPIRITISM SPIRITISM [facility] HYDROMORP [facility] PHIL UP TO 4 MG INJECTION J2790 SPIRITISM BOWMAN RHO D IG [facility] HUMAN MEDICAL FULL DOSE GROUP 300 MCG THERAPEUT 97993 SPIRITISM BOWMAN IC 7 HEALTH PROPHYLAC MEDICAL TIC/DX GROUP INJECTION SUBQ/[place] [address] [facility] LUU 7 [facility] UTERUS INC INC LIMITED 1/> FETUSES DOPPLER 80408 [facility] ROSASMER VELOCIMET 7 [facility] RY INC UMBILICAL ARTERY URNLS DIP 28484 [facility] LUU 7 [facility] STICK/TAB INC [place] [address] [facility] RETROPERI 7 [facility] TONEAL [place] [address] PAT PERRY RETROPERI 7 MEDICAL TONEAL IMAGING [place] W/[place] [address] [facility] INFUSION 7 [facility] THERAPY/P INC INC ROPHYLAXI S /DX 1ST TO 1 HR CALCULUS 31247 [facility] XRAY 7 [facility] DIFFRACTI INC INC ON ANTIBODY 62111 [facility] SCREEN 7 [facility] RBC EACH INC INC SERUM TECHNIQUE COMPREHEN 16148 [facility] SIVE 7 [facility] METABOLIC INC INC PANEL 89371 [facility] BIOPHYSIC 7 [facility] AL INC INC PROFILE W/O NON-STRES S TESTING UNCLASSIF J3490 [facility] IED DRUGS 7 [facility] INC INC THER 67911 [facility] PROPH/DX 7 [facility] NJX EA INC INC SEQL IV PUSH SBST/DRUG FAC THERAPEUT 84210 [facility] IC 7 [facility] INJECTION [place] [address] [facility] INFUSION 7 [facility] THERAPY/P INC INC ROPHYLAXI S /DX 1ST TO 1 HR URNLS DIP 97248 [facility] LUU 7 [facility] STICK/TAB INC INC LET REAGENT AUTO MICROSCOP Y THERAPEUT 85636 [facility] IC 7 [facility] PROPHYLAC INC INC TIC/DX INJECTION SUBQ/IM CULTURE 63115 [facility] BACTERIAL 7 [facility] INC INC QUANTTATI VE COLONY COUNT URINE UNCLASSIF J3490 [facility] IED DRUGS 7 [facility] INC INC COLLECTIO 72707 [facility] N VENOUS 7 [facility] BLOOD INC INC VENIPUNCT URE THER 98609 [facility] PROPH/DX 7 [facility] NJX IV INC INC PUSH SINGLE/1S T SBST/DRUG CREATININ 40604 [facility] E BLOOD 7 [facility] INC INC 56641 [facility] DANII NONSTRESS 7 PHYSICIAN TEST S GROUP URNLS DIP 35369 [facility] LUU 7 [facility] STICK/TAB INC INC LET REAGENT AUTO MICROSCOP Y THERAPEUT 86910 [facility] IC 7 [facility] INJECTION INC [place] [address] [facility] UREA 7 [facility] NITROGEN INC INC QUANTITAT SUZAN THERAPEUT 97573 [facility] IC 7 [facility] PROPHYLAC INC INC TIC/DX INJECTION SUBQ/IM UNCLASSIF J3490 [facility] IED DRUGS 7 [facility] INC INC OBSERVATI 89088 [facility] DANII ON CARE 6 PHYSICIAN DISCHARGE S GROUP MANAGEMEN INITIAL 59390 [facility] DANII OBSERVATI 6 PHYSICIAN ON S GROUP CARE/DAY 50 MINUTES OBSERVATI 18767 [facility] DANII ON CARE 6 PHYSICIAN DISCHARGE S GROUP MANAGEMEN HOSPITAL G0378 [facility] OBSERVATI 6 [facility] ON INC INC SERVICE PER HOUR INITIAL 73161 [facility] DANII OBSERVATI 6 PHYSICIAN ON S GROUP CARE/DAY 30 MINUTES DRUG TST G0477 [facility] PRESUMP;C 6 [facility] PBL BEING INC INC READ DC OPT OBV ONLY HOSPITAL G0378 [facility] OBSERVATI 6 [facility] ON INC INC SERVICE PER HOUR URNLS DIP 20188 [facility] LUU 6 [facility] STICK/TAB INC INC LET REAGENT AUTO MICROSCOP Y THERAPEUT 99586 [facility] IC 6 [facility] PROPHYLAC INC INC TIC/DX INJECTION SUBQ/IM DRUG TST G0477 [facility] DANII PRESUMP;C 6 PHYSICIAN PBL BEING S GROUP READ DC OPT OBV ONLY IAADIADOO 32556 [facility] 5 REGIONAL STREPTOCO MEDICAL CCUS C GROUP A IAADIADOO 96018 [facility] MARICEL 5 REGIONAL INFLUENZA MEDICAL C URNLS DIP 63701 [facility] 5 REGIONAL STICK/TAB MEDICAL LET RGNT C NON-AUTO W/O MICRSCP SVC PRV 80186 [facility] OFFICE 5 REGIONAL REG MEDICAL SCHEDD C EVN WKEND/HOL IDAY HRS URINE 65107 [facility] MARICEL 5 REGIONAL TEST MEDICAL [place] [address] [facility] & 5 [facility] W/O PLLC CONTRAST MATERIAL Encounters Encounter Start End Date Code Location Performer Type Date [facility] SPIRITISM - 7 7 HEALTH OUTPATIEN [facility] SPIRITISM - 7 7 HEALTH INPATIENT [facility] SPIRITISM - 7 7 HEALTH OUTPATIEN [facility] OFFICE 99353 SPIRITISM [facility] OUTPATIEN 7 7 HEALTH T VISIT MEDICAL 15 GROUP MINUTES OFFICE 24389 SPIRITISM [facility] OUTPATIEN 7 7 HEALTH T VISIT MEDICAL 15 GROUP MINUTES [facility] SPIRITISM - 7 7 HEALTH OUTPATIEN [facility] OFFICE 57425 SPIRITISM DANIELLE OUTPATIEN 7 7 HEALTH T VISIT MEDICAL 15 GROUP MINUTES [facility] SPIRITISM - 7 7 HEALTH OUTPATIEN [facility] OFFICE 54797 SPIRITISM DANIELLE OUTPATIEN 7 7 HEALTH T VISIT MEDICAL 15 GROUP MINUTES OFFICE 99370 SPIRITISM [facility] OUTPATIEN 7 7 HEALTH T VISIT MEDICAL 15 GROUP MINUTES OFFICE 38262 SPIRITISM [facility] OUTPATIEN 7 7 HEALTH T VISIT MEDICAL 15 GROUP MINUTES [facility] SPIRITISM - 7 7 HEALTH OUTPATIEN [facility] OFFICE 21887 SPIRITISM B[facility]MAN OUTPATIEN 7 7 HEALTH T NEW 45 MEDICAL MINUTES GROUP [facility]OSP[facility] - 7 7 [facility] OUTPATIEN INC T EMERGENCY 97624 [facility] 7 7 [facility] DEPARTMEN INC T VISIT MODERATE SEVERITY EMERGENCY 81987 [facility] DEPT 7 7 PHYSICIAN VISIT S, PLLC HIGH SEVERITY& THREAT [facility] - 7 7 [facility] OUTPATIEN INC T OFFICE 00521 [facility] DANII HARDY 7 7 PHYSICIAN T VISIT S GROUP 15 MINUTES [facility]OSPITAL [facility] - 7 7 [facility] OUTPATIEN INC T EMERGENCY 17642 [facility] 7 7 [facility] DEPARTMEN INC T VISIT MODERATE SEVERITY EMERGENCY 95761 [facility] MOJICA DEPT 7 7 [facility]& THREAT FUNCJ EMERGENCY 80587 [facility] HENNING 7 7 PHYSICIAN U DEPARTMEN S, PLLC T VISIT HIGH/URGE NT SEVERITY [facility]OSPITAL [facility] - 7 7 [facility] OUTPATIEN INC T EMERGENCY 40280 [facility] 7 7 [facility] DEPARTMEN INC T VISIT LOW/MODER SEVERITY [facility]OSPITAL [facility] - 6 6 [facility] INPATIENT INC OFFICE 89262 [facility] 6 6 [facility] MEDICAL NEW/ESTAB GROUP PATIENT 15 MIN [facility]OSPITAL [facility] - 6 6 [facility] OUTPATIEN INC T EMERGENCY 16704 [facility] 6 6 [facility] DEPARTMEN INC T VISIT LOW/MODER SEVERITY [facility]OSPITAL [facility] - 6 6 [facility] OUTPATIEN INC T EMERGENCY 14241 [facility] EDDY 6 6 PHYSICIAN DEPARTMEN S, PLLC T VISIT MODERATE SEVERITY OFFICE 41679 [facility] DANII OUTPATIEN 6 6 PHYSICIAN T NEW 45 S GROUP MINUTES OFFICE 30759 [facility] MARICEL OUTPATIEN 5 5 REGIONAL T VISIT MEDICAL 15 C MINUTES
--- OUTSIDE RECORDS SUMMARY | 2016-09-01 01:37 | External Medical Summary Rpt ---
Author Author , Organization [employer] Address Unknown Phone Unavailable Care Team Providers Care Announcer Name Role Phone [facility] Unavailable Unavailable [facility], [facility] Unavailable Unavailable [facility], [facility] Unavailable Unavailable [facility], [facility] CARUSO, CARUSO Unavailable Unavailable DANIELLE, DANIELLE Unavailable Unavailable CHRISTINE CONNELLY, CHRISTINE MARICEL Unavailable Unavailable FOY, FOY Unavailable Unavailable ORLANDO, OR[place]O Unavailable Unavailable NUNU, NUNU Unavailable Unavailable [facility] Unavailable [facility]available [facility] Unavailable Unavailable INC, [facility] HEMMER, HEMMER Unavailable Unavailable HIETT, HIETT Unavailable [facility]available [facility] Unavailable Unavailable MEDICAL C, [facility], Unavailable Unavailable [facility] MOJICA, MOJICA Unavailable Unavailable [facility] Unavailable Unavailable [facility], [facility] INDER FADI Unavailable [...] [facility] Z391 ENCNTR FOR 07-17-2016 [facility] CARE & HEALTH EXAMINATION MEDICAL LACTATING GROUP MOTHER Z392 ENCOUNTER 07-17-2016 [facility] FOR ROUTINE HEALTH MEDICAL FOLLOW-UP GROUP O133 GESTATIONAL 06-25-2016 [facility] HTN W/O ANESTHESIA SIG PSC PROTEINURIA THIRD TRI O80 ENCOUNTER 06-25-2016 [facility] FOR ANESTHESIA FULL-TERM PSC UNCOMPLICAT ED DELIVERY Z370 SINGLE LIVE 06-25-2016 [facility] ANESTHESIA PSC O134 GESTATIONAL 06-24-2016 [facility] HTN W/O HEALTH SIGNIF [place] PROTEINURIA COMP CB [id number] MAT CARE 06-24-2016 [facility] OTH HEALTH KNWN/SUSP MEDICAL POOR FTL GROUP GRTH 3RD TRI UNS O665 ATTEMPTED 06-24-2016 [facility] APPLICATION HEALTH VACUUM MEDICAL EXTRACTOR & GROUP FORCEPS [id number] L & D COMP 06-24-2016 [facility] CORD AROUND HEALTH NECK W/O [place] COMPRS NA/UNS Z2913 ENCOUNTER 06-24-2016 [facility] FOR HEALTH PROPHYLACTI [place] C RHO IMMUNE GLOBULIN Z3A36 36 WEEKS 06-24-2016 [facility] GESTATION HEALTH OF MEDICAL GROUP O163 UNSPECIFIED 06-20-2016 [facility] MATERNAL HEALTH HYPERTENSIO [place] N 3RD TRIMESTER [id number] OTHER SPEC 06-20-2016 [facility] HEALTH RELATED MEDICAL COND 3RD GROUP TRIMESTER O288 OTH 06-20-2016 [facility] ABNORMAL HEALTH FIND ON [place] SCREENING MOTHER [id number] MATERNAL 06-20-2016 [facility] CARE OTH HEALTH SPEC MEDICAL PROB 3RD GROUP TRI NA/UNS I54476 PERSONAL 06-20-2016 [facility] HISTORY OF HEALTH URINARY [place] CALCULI Z3A35 35 WEEKS 06-17-2016 [facility] O289 UNS 06-13-2016 [facility] ABNORMAL HEALTH FIND ON [place] SCREENING MOTHER [id number] OLIGOHYDRAM 06-13-2016 [facility] NIOS THIRD HEALTH TRIMESTER MEDICAL NA/UNS GROUP E669 OBESITY 06-10-2016 [facility] UNSPECIFIED HEALTH MEDICAL GROUP Z3A34 34 WEEKS 06-10-2016 [facility] R109 UNSPECIFIED 06-05-2016 [facility] ABDOMINAL HEALTH PAIN MEDICAL GROUP Z3A33 33 WEEKS 06-03-2016 [facility] O210 MILD 05-28-2016 [facility] HYPEREMESIS [facility] Z418 ENC OTH 05-28-2016 [facility] PROC HEALTH PURPOSES MEDICAL OTH THAN GROUP REMEDY HL STATE N1330 UNSPECIFIED 05-25-2016 [facility] HYDRONEPHRO IM[facility]ING ASS SIS O4443 LOW LYING 05-25-2016 [facility] NOS/WO IMAGING ASS HEMORRHAGE 3RD TRIM O4703 FALSE LABOR 05-25-2016 [facility] BEFORE [facility] CMPLETE INC WEEKS GEST 3RD TRI Z331 05-25-2016 [facility] INCIDENTAL IMAGING ASS Z3A32 32 WEEKS 05-25-2016 [facility] GESTATION [facility] OF INC N23 UNSPECIFIED 05-16-2016 [facility] RENAL [facility]YSICIANS, COLIC PLLC [id number] 05-16-2016 [facility] RELATED [facility]YS[facility], RENAL PLLC DISEASE THIRD TRIMESTER [id number] STRAIN 05-16-2016 [facility]CLE [facility]ASC [facility] & TENDON INC NECK LEVL INIT ENC [id number] STRAIN 05-16-2016 [facility] MUSCLE [facility] FASCIA & INC TENDON LOW BACK INITIAL [id number] UNSPECIFIED 05-16-2016 [facility] SPRAIN OF [facility] LEFT HIP INC INITIAL ENCOUNTER Z3480 ENC 05-15-2016 [facility]ANS OTH NORMAL GROUP PREG UNS TRIMESTER N200 CALCULUS OF 05-09-2016 [facility]NEY [facility] INC R1031 RIGHT LOWER 05-09-2016 [facility]ANT [facility] PAIN INC Z3A30 30 WEEKS 05-09-2016 [facility] GESTATION [facility] OF INC O9989 OT DZ & 05-08-2016 [facility] COND COMP PHYSICIANS, PREG PLLC CHILDBIRTH PUERPERIUM Z3483 ENC 05-08-2016 [place] [facility] OTH NORMAL INC 3 TRIMESTER Z3A31 31 WEEKS 05-08-2016 [facility] GESTATION PHYSICIANS, OF PLLC N132 HYDRONEPHRO 03-31-2016 [facility] SIS W/RENAL [facility] & URETRL INC CALCULOUS OBST K46831 OTHER SPEC 03-31-2016 [facility] RELATED INC COND 2ND TRIMESTER Z3A26 26 WEEKS 03-31-2016 [facility] GESTATION [facility] OF INC [id number] MAT CARE 03-24-2016 [facility] HEALTH KNWN/SUSP MEDICAL POOR FTL GROUP GRTH 2ND TRI UNS Z3A23 23 WEEKS 03-24-2016 [facility] K11324 SUPERVISION 03-21-2016 [facility] OT HIGH PHYSICIANS RISK PREG GROUP SECOND TRIMESTER Z3A21 21 WEEKS 03-21-2016 [facility] GESTATION PHYSICIANS OF GROUP O2692 03-20-2016 [facility] RELATED PHYSICIANS, CONDITIONS PLLC UNS 2ND TRIMESTER Z3A24 24 WEEKS 03-20-2016 [facility]ATION [facility] OF INC Z3201 ENCOUNTER 03-05-2016 [facility] TEST RESULT POSITIVE 20517 ABDOMINAL 07-05-2014 [facility] OTHER REGIONAL SPECIFIED MEDICAL C SITE 15380 ABDOMINAL 05-09-2014 [facility], RADIOLOGY UNSPECIFIED PLL [...] 03 04 30 30 00 RI Ac ID 37 -3 -2 .0 00 TE ti [...] 02 03 30 30 00 RI Ac ID 37 -1 -1 .0 00 TE ti [...] CY TA BL #1 ET 60 7 ID 00 01 02 30 7 00 RI [...] 1 60 PH CE AR TA [place] CY NO PH #[phone] Procedures Procedure DOS Code Location Performer Comment URNLS DIP 39345 WORSHIP WORSHIP [address] [place] [address] STICK/TAB [facility] LET REAGENT AUTO MICROSCOP Y SUSCEPTIB 85217 WOR[facility]IP WORSHIP LTY STDY 7 [facility] ANTIMICRB [facility] IAL MICRO/AGA R DILUTJ CULTURE 33561 WORSHIP WORSHIP BACTERIAL [address] [place] [address] QUANTTATI VE COLONY COUNT URINE CULTURE 09488 WORSHIP WORSHIP TYPING [address] [place] [address] IMMUNOLOG [facility] IC OTH/THN IMMUNOFLU ORES POSTPARTU [address] MEDICAL SEPARATE GROUP PROCEDURE CUL BACT 89403 WORSHIP WORSHIP AEROBIC 7 [facility] ADDL [facility] METHS DEFINITIV E EA ISOL BREAST E0603 GOULDS GOULDS PUMP 7 DISCOUNT [facility] [employer] MEDICAL MEDICAL ANY [facility] [address] WORSHIP [place] DISCHARGE 7 [facility] MEDICAL MANAGEMEN GROUP T 30 MIN/< SBSQ [address] CARE/DAY MEDICAL 15 GROUP MINUTES VAGINAL 33622 WORSHIP [place] DELIVERY 7 [facility] MEDICAL GROUP NEURAXIAL 53426 WORSHIP [place] LABOR 7 ANESTHESI ANALG/ANE A PSC S PLND VAGINAL DELIVERY INITIAL [address] CARE/DAY MEDICAL 30 GROUP MINUTES DOPPLER 98507 WORSHIP ZULY VELOCIMET 7 [facility] RY MEDICAL UMBILICAL [place] PREG 54992 WORSHIP ZULY UTERUS 7 [facility] REAL TIME MEDICAL F/U GROUP TRNSABDL PER FETUS 21590 WORSHIP ZULY BIOPHYSIC [address] [place] [address] [place] MEDICAL PROFILE GROUP W/O NON-STRES S TESTING 12522 WORSHIP WORSHIP NONSTRESS [address] [place] [address] TEST [facility] 62060 WORSHIP [place] NONSTRESS 7 HEALTH TEST MEDICAL GROUP 61629 WORSHIP WORSHIP NONSTRESS 7 HEALTH HEALTH TEST [facility] 97440 WORSHIP DANIELLE BIOPHYSIC 7 HEALTH AL MEDICAL PROFILE GROUP NON-STRES S TESTING HOSPITAL G0378 WORSHIP WORSHIP OBSERVATI 7 HEALTH HEALTH ON [facility] SERVICE PER HOUR 62098 WORSHIP DANIELLE BIOPHYSIC 7 HEALTH AL MEDICAL PROFILE GROUP NON-STRES S TESTING IAADIADOO 04363 WORSHIP WORSHIP 7 HEALTH HEALTH STREPTOCO [facility] CCUS GROUP A CUL 53126 WORSHIP WORSHIP PRSMPTV 7 HEALTH HEALTH PTHGNC [facility] ORGANISM SCRN W/COLONY ESTIMJ 40124 WORSHIP [place] NONSTRESS 7 HEALTH TEST MEDICAL GROUP INJECTION J1170 WORSHIP WORSHIP 7 HEALTH HEALTH HYDROMORP [facility] PHIL UP TO 4 MG THERAPEUT 94866 WORSHIP WORSHIP IC 7 HEALTH HEALTH PROPHYLAC [facility] TIC/DX INJECTION SUBQ/IM CALCULUS 64108 WORSHIP WORSHIP QUANTITAT 7 HEALTH HEALTH SUZAN [facility] CHEMICAL US PREG 07498 WORSHIP WORSHIP UTERUS 7 HEALTH HEALTH REAL TIME [facility] F/U TRNSABDL PER FETUS 78436 WORSHIP WORSHIP BIOPHYSIC 7 HEALTH HEALTH AL [facility] PROFILE W/O NON-STRES S TESTING INJECTION J2550 WORSHIP WORSHIP 7 HEALTH HEALTH PROMETHAZ [facility] INE HCL UP TO 50 MG INJ J0702 WORSHIP WORSHIP BETAMETHA 7 HEALTH HEALTH SONE [facility] ACETATE & PHOSPHATE 3 MG DRUG TEST 37479 WORSHIP WORSHIP PRSMV 7 HEALTH HEALTH QUAL [facility] INSTRMNT OPTCL OBS PER DAY OBSERVATI 84417 WORSHIP [place] ON CARE 7 HEALTH DISCHARGE MEDICAL GROUP MANAGEMEN T THER 57796 WORSHIP WORSHIP PROPH/DX 7 [facility] HEALTH NJX EA [facility] SEQL IV PUSH SBST/DRUG FAC INJ J0702 WORSHIP WORSHIP BETAMETHA 7 [facility] HEALTH SONE [facility] ACETATE & PHOSPHATE 3 MG THER 78339 WORSHIP WORSHIP PROPH/DX 7 [facility] HEALTH NJX EA [facility] SEQL IV PUSH SBST/DRUG FAC COMPREHEN 72183 WORSHIP QUEST SIVE 7 HEALTH DIAGNOSTI METABOLIC BLYTHE CS PANEL INCORPORA T INJECTION J2405 WORSHIP WORSHIP 7 [facility] ONDANSETR [facility] ON HCL PER 1 MG INJECTION J2550 WORSHIP WORSHIP 7 [facility] PROMETHAZ [facility] INE HCL UP TO 50 MG URNLS DIP 72318 WORSHIP LAB INDER 7 [facility] FADI STICK/TAB [facility] LET REAGENT AUTO MICROSCOP Y THER 34858 WORSHIP WORSHIP PROPH/DX 7 [facility] NJX IV [facility] PUSH SINGLE/1S T SBST/DRUG THERAPEUT 14048 WORSHIP WORSHIP IC 7 [facility] INJECTION [facility] IV PUSH EACH NEW DRUG 28433 WORSHIP WORSHIP NONSTRESS 7 [facility] HEALTH TEST [facility] G0378 WORSHIP WORSHIP OBSERVATI 7 [facility] HEALTH ON [facility] SERVICE PER HOUR INJECTION J1170 WORSHIP WORSHIP 7 [facility] HYDROMORP [facility] PHIL UP TO 4 MG INJECTION J2790 WORSHIP BOWMAN RHO D IG 7 [facility] HUMAN MEDICAL FULL DOSE GROUP 300 MCG THERAPEUT 79976 WORSHIP BWOMAN IC 7 HEALTH PROPHYLAC MEDICAL TIC/[place] INJECTION SUBQ[place] [address] [facility] LUU 7 MEM [facility]OS[facility] UTERUS INC INC LIMITED 1/> FETUSES DOPPLER 62363 [facility] ROSASMER VELOCIMET 7 MEM [facility]OS[facility] RY INC UMBILICAL ARTERY URNLS DIP 23991 [facility] LUU 7 [facility] STICK/TAB INC [place] [address] [facility] LUU RETROPERI 7 [facility] TONEAL INC [place] [address] PAT PERRY RETROPERI 7 MEDICAL TONEAL IMAGING [place] W/[place] [address] [facility] LUU INFUSION 7 [facility] THERAPY/P INC INC ROPHYLAXI S /DX 1ST TO 1 HR CALCULUS 77372 [facility] XRAY 7 [facility] DIFFRACTI INC INC ON ANTIBODY 74536 [facility] SCREEN 7 [facility] RBC EACH INC INC SERUM TECHNIQUE COMPREHEN 21547 [facility] SIVE 7 [facility] METABOLIC INC INC PANEL 56919 [facility] LUU BIOPHYSIC 7 [facility] AL INC INC PROFILE W/O NON-STRES S TESTING UNCLASSIF J3490 [facility] IED DRUGS 7 [facility] INC INC THER 86322 [facility] PROPH/DX 7 [facility] NJX EA INC INC SEQL IV PUSH SBST/DRUG FAC THERAPEUT 20613 [facility] IC 7 [facility] INJECTION [place] [address] [facility] LUU INFUSION 7 [facility] THERAPY/P INC INC ROPHYLAXI S /DX 1ST TO 1 HR URNLS DIP 64354 [facility] LUU 7 [facility] STICK/TAB INC INC LET REAGENT AUTO MICROSCOP Y THERAPEUT 38948 [facility] LUU IC 7 [facility] PROPHYLAC INC INC TIC/DX INJECTION SUBQ/IM CULTURE 38262 [facility] BACTERIAL 7 [facility] INC INC QUANTTATI VE COLONY COUNT URINE UNCLASSIF J3490 [facility] IED DRUGS 7 [facility] INC INC COLLECTIO 63874 [facility] N VENOUS 7 [facility] BLOOD INC INC VENIPUNCT URE THER 74907 [facility] PROPH/DX 7 [facility] NJX IV INC INC PUSH SINGLE/1S T SBST/DRUG CREATININ 13646 [facility] E BLOOD 7 [facility] INC INC [address]15 [facility] NONSTRESS 7 PHYSICIAN TEST S GROUP URNLS DIP 82363 [facility] LUU 7 [facility] STICK/TAB INC INC LET REAGENT AUTO MICROSCOP Y THERAPEUT 76763 [facility] LUU IC 7 [facility] INJECTION INC [place] [address] [facility] UREA 7 [facility] NITROGEN INC INC QUANTITAT SUZAN THERAPEUT 90081 [facility] IC 7 [facility] PROPHYLAC INC INC TIC/DX INJECTION SUBQ/IM UNCLASSIF J3490 [facility] IED DRUGS 7 [facility] INC INC OBSERVATI 33565 [facility] ON CARE 6 PHYSICIAN DISCHARGE S GROUP MANAGEMEN INITIAL 33993 [facility] OBSERVATI 6 PHYSICIAN ON S GROUP CARE/DAY [address] [facility] CARE 6 PHYSICIAN DISCHARGE S GROUP MANAGEMEN HOSPITAL G0378 [facility] LUU OBSERVATI 6 [facility] ON INC INC SERVICE PER HOUR INITIAL 13498 [facility] OBSERVATI 6 PHYSICIAN ON S GROUP CARE/DAY 30 MINUTES DRUG TST G0477 [facility] L[facility] PRESUMP;C 6 [facility] PBL BEING INC INC READ DC OPT OBV ONLY HOSPITAL G0378 [facility] LUU OBSERVATI 6 [facility] ON INC INC SERVICE PER HOUR URNLS DIP 00749 [facility] LUU 6 [facility] STICK/TAB INC INC LET REAGENT AUTO MICROSCOP Y THERAPEUT 11096 [facility] IC 6 [facility] PROPHYLAC INC INC TIC/DX INJECTION SUBQ/IM DRUG TST G0477 [facility] PRESUMP;C 6 PHYSICIAN PBL BEING S GROUP READ DC OPT OBV ONLY IAADIADOO 64532 [facility] 5 REGIONAL STREPTOCO MEDICAL CCUS C GROUP A IAADIADOO 34398 [facility] 5 REGIONAL INFLUENZA MEDICAL C URNLS DIP 93126 [facility] 5 REGIONAL STICK/TAB MEDICAL LET RGNT C NON-AUTO W/[place]V [address] [facility] OFFICE 5 REGIONAL REG MEDICAL SCHEDD C EVN WKEND/HOL IDAY HRS URINE 49630 [facility] 5 REGIONAL TEST MEDICAL [place] [address] [place] [facility]OMEN & 5 [facility] W/O PLLC CONTRAST MATERIAL Encounters Encounter Start End Date Code Location Performer Type Date [facility] WORSHIP - 7 7 HEALTH OUTPATIEN [facility] WORSHIP - 7 7 HEALTH INPATIENT [facility] WORSHIP - 7 7 HEALTH OUTPATIEN [facility] OFFICE 82000 WORSHIP [place] OUTPATIEN 7 7 HEALTH T VISIT MEDICAL 15 GROUP MINUTES OFFICE 48486 WOR[facility] [place] OUTPATIEN 7 7 HEALTH T VISIT MEDICAL 15 GROUP MINUTES [facility] WORSHIP - 7 7 HEALTH OUTPATIEN [facility] OFFICE 22708 WORSHIP DANIELLE OUTPATIEN 7 7 HEALTH T VISIT MEDICAL 15 GROUP MINUTES [facility] WORSHIP - 7 7 HEALTH OUTPATIEN [facility] OFFICE 75406 WORSHIP DANIELLE OUTPATIEN 7 7 HEALTH T VISIT MEDICAL 15 GROUP MINUTES OFFICE 13142 WORSHIP [place] OUTPATIEN 7 7 HEALTH T VISIT MEDICAL 15 GROUP MINUTES OFFICE 46814 WORSHIP [place] OUTPATIEN 7 7 HEALTH T VISIT MEDICAL 15 GROUP MINUTES [facility] WORSHIP - 7 7 HEALTH OUTPATIEN [facility] OFFICE 77880 WORSHIP [place] OUTPATIEN 7 7 HEALTH T NEW 45 MEDICAL MINUTES GROUP [facility]OSP[facility] - 7 7 [facility] OUTPATIEN INC T EMERGENCY 26343 [facility] 7 7 [facility] DEPARTMEN INC T VISIT MODERATE SEVERITY EMERGENCY 92074 [facility] DEPT 7 7 PHYSICIAN VISIT S, PLLC HIGH SEVERITY& THREAT [facility] - 7 7 [facility] OUTPATIEN INC T OFFICE 15687 [facility] HARDY 7 7 PHYSICIAN T VISIT S GROUP 15 MINUTES [facility]OSPITAL [facility] - 7 7 [facility] OUTPATIEN INC T EMERGENCY 35139 [facility] 7 7 [facility] DEPARTMEN INC T VISIT MODERATE SEVERITY EMERGENCY 11405 [facility] MOJICA DEPT 7 7 [facility]& THREAT [facility] 55729 [facility] HENNING 7 7 PHYSICIAN U DEPARTMEN S, PLLC T VISIT HIGH/URGE NT SEVERITY [facility]OSPITAL [facility] - 7 7 [facility] OUTPATIEN INC T EMERGENCY 64092 [facility] 7 7 [facility] DEPARTMEN INC T VISIT LOW/MODER SEVERITY [facility]OSPITAL [facility] - 6 6 [facility] INPATIENT INC OFFICE 66892 [facility] CONS[facility]AT 6 6 HEALTH [facility] MEDICAL NEW/ESTAB GROUP PATIENT 15 MIN [facility]OSPITAL [facility] - 6 6 [facility] OUTPATIEN INC T EMERGENCY 80650 [facility] 6 6 [facility] DEPARTMEN INC T VISIT LOW/MODER SEVERITY [facility]OSPITAL [facility] - 6 6 [facility] OUTPATIEN INC T EMERGENCY 62319 [facility] EDDY 6 6 PHYSICIAN DEPARTMEN S, PLLC T VISIT MODERATE SEVERITY OFFICE 91963 [facility] OUTPATIEN 6 6 PHYSICIAN T NEW 45 S GROUP MINUTES OFFICE 44230 [facility] OUTPATIEN 5 5 REGIONAL T VISIT MEDICAL 15 C MINUTES
--- OUTSIDE RECORDS SUMMARY | 2016-09-01 01:38 | External Medical Summary Rpt ---
Demographics Preferred Language Tristanian Marital Status Unknown Jainism Affiliation Unknown Race Unknown Ethnic Group Unknown Author Author , Organization [employer] Address Unknown Phone Unavailable Purpose Continuity of Care Document - through 2016 Immunization No patient found.
--- OUTSIDE RECORDS SUMMARY | 2016-09-01 01:38 | External Medical Summary Rpt ---
Demographics Preferred Language Turkish Marital Status Unknown Restoration Affiliation Unknown Race Unknown Ethnic Group Unknown Author Author , Organization [employer] Address Unknown Phone Unavailable Purpose Continuity of Care Document - through 2016 Immunization No patient found.
== END 2016-08-30 21:11 | disposition still patient (30) ==
LOC: ER 18:15
PROVIDERS: General Practice
DX: R10.31 Right lower quadrant pain (principal); R31.9 Hematuria, unspecified

== ENCOUNTER 2016-09-04 20:02 | Emergency (ER) | payer MEDICAID ==
[~2016-09-04] VITALS: Ht 162.6 cm; Wt 72.6 kg
[2016-09-04 20:19] LABS: URINE BILIRUBIN - DIPSTICK NEGATIVE (NEG); URINE BLOOD 3+ (NEG)
--- OUTSIDE RECORDS SUMMARY | 2016-09-04 20:25 | External Medical Summary Rpt ---
Demographics Preferred Language Sao Tomean Marital Status Unknown Rastafari Affiliation Unknown Race Unknown Ethnic Group Unknown Author Author , Organization [employer] Address Unknown Phone Unavailable Purpose Continuity of Care Document - through 2016 Immunization No patient found.
--- OUTSIDE RECORDS SUMMARY | 2016-09-04 20:25 | External Medical Summary Rpt ---
Author Author , Organization [employer] Address Unknown Phone Unavailable Care Team Providers Care Ice Cream Dispenser Name Role Phone [facility] Unavailable Unavailable [facility], [facility] Unavailable Unavailable [place] Unavailable Unavailable [facility], [facility] CARUSO, CARUSO Unavailable Unavailable DANIELLE, DANIELLE Unavailable Unavailable CHRISTINE CONNELLY, CHRISTINE MARICEL Unavailable Unavailable FOY, FOY Unavailable Unavailable [place], ORLANDO Unavailable Unavailable NUNU, NUNU Unavailable Unavailable [facility] Unavailable [facility] Unavailable Unavailable INC, [facility] HEMMER, HEMMER Unavailable Unavailable HIETT, HIETT Unavailable Unavailable [facility] Unavailable Unavailable MEDICAL C, [facility], Unavailable Unavailable [facility] MOJICA, MOJICA Unavailable Unavailable [facility] Un[facility] INDER FADI Unavailable [...] DOS Provider Status R300 DYSURIA 07-17-2016 [facility] Z391 ENCNTR FOR 07-17-2016 [facility] CARE & HEALTH EXAMINATION MEDICAL LACTATING GROUP MOTHER Z392 ENCOUNTER 07-17-2016 [facility] FOR ROUTINE HEALTH MEDICAL FOLLOW-UP GROUP O133 GESTATIONAL 06-25-2016 [facility] HTN W/O ANESTHESIA SIG PSC PROTEINURIA THIRD TRI O80 ENCOUNTER 06-25-2016 [facility] FOR ANESTHESIA FULL-TERM PSC UNCOMPLICAT ED DELIVERY Z370 SINGLE LIVE 06-25-2016 [facility] ANESTHESIA PSC O134 GESTATIONAL 06-24-2016 [facility] HTN W/O HEALTH SIGNIF [place] PROTEINURIA COMP CB [id number] MAT CARE 06-24-2016 [facility] OTH HEALTH KNWN/SUSP MEDICAL POOR FTL GROUP GRTH 3RD TRI UNS O665 ATTEMPTED 06-24-2016 [facility] APPLICATION HEALTH VACUUM MEDICAL EXTRACTOR & GROUP FORCEPS [id number] L & D COMP 06-24-2016 [facility] CORD AROUND HEALTH NECK W/O [place] COMPRS NA/UNS Z2913 ENCOUNTER 06-24-2016 [facility] FOR HEALTH PROPHYLACTI [place] C RHO IMMUNE GLOBULIN Z3A36 36 WEEKS 06-24-2016 [facility] GESTATION HEALTH OF MEDICAL GROUP O163 UNSPECIFIED 06-20-2016 [facility] MATERNAL HEALTH HYPERTENSIO [place] N 3RD TRIMESTER [id number] OTHER SPEC 06-20-2016 [facility] HE[facility] RELATED MEDICAL COND 3RD GROUP TRIMESTER O288 OTH 06-20-2016 [facility] ABNORMAL HEALTH FIND ON [place] SCREENING MOTHER [id number] MATERNAL 06-20-2016 [facility] CARE OTH HEALTH SPEC MEDICAL PROB 3RD GROUP TRI NA/UNS Q40329 PERSONAL 06-20-2016 [facility] HISTORY OF HEALTH URINARY [place] CALCULI Z3A35 35 WEEKS 06-17-2016 [facility] O289 UNS 06-13-2016 [facility] ABNORMAL HEALTH FIND ON [place] SCREENING MOTHER [id number] OLIGOHYDRAM 06-13-2016 [facility] NIOS THIRD HEALTH TRIMESTER MEDICAL NA/UNS GROUP E669 OBESITY 06-10-2016 [facility] UNSPECIFIED HEALTH MEDICAL GROUP Z3A34 34 WEEKS 06-10-2016 [facility] GROUP R109 UNSPECIFIED 06-05-2016 [facility] ABDOMINAL HEALTH PAIN MEDICAL GROUP Z3A33 33 WEEKS 06-03-2016 [facility] O210 MILD 05-28-2016 [facility] HYPEREMESIS [facility] Z418 ENC OTH 05-28-2016 [facility] PROC HEALTH PURPOSES MEDICAL OTH THAN GROUP REMEDY HL STATE N1330 UNSPECIFIED 05-25-2016 [facility] HYDRONEPHRO IMAGING ASS SIS O4443 LOW LYING 05-25-2016 [facility] NOS/WO IMAGING ASS HEMORRHAGE 3RD TRIM O4703 FALSE LABOR 05-25-2016 [facility] BEFORE [facility] CMPLETE INC WEEKS GEST 3RD TRI Z331 05-25-2016 [facility] INCIDENTAL IMAGING ASS Z3A32 32 WEEKS 05-25-2016 [facility]ATION [facility] OF INC N23 UNSPECIFIED 05-16-2016 [facility] RENAL PHYSICIANS, COLIC PLLC G39298 05-16-2016 [facility] RELATED PHYSICIANS, RENAL PLLC DISEASE THIRD TRIMESTER A996WMT STRAIN 05-16-2016 [facility]ASC [facility] & TENDON INC NECK LEVL INIT ENC [id number] STRAIN 05-16-2016 [facility] FASCIA & INC TENDON LOW BACK INITIAL [id number] UNSPECIFIED 05-16-2016 [facility] SPRAIN OF [facility] LEFT HIP INC INITIAL ENCOUNTER Z3480 ENC 05-15-2016 [facility] SUPERVISION PHYSICIANS OTH NORMAL GROUP PREG UNS TRIMESTER N200 CALCULUS OF 05-09-2016 [facility]NEY [facility] INC R1031 RIGHT LOWER 05-09-2016 [facility]ANT [facility] PAIN INC Z3A30 30 WEEKS 05-09-2016 [facility] GESTATION [facility] OF INC O9989 OT DZ & 05-08-2016 [facility] COND COMP PHYSICIANS, PREG PLLC CHILDBIRTH PUERPERIUM Z3483 ENC 05-08-2016 [facility] SUPERVISION [facility] OTH NORMAL INC 3 TRIMESTER Z3A31 31 WEEKS 05-08-2016 [facility] GESTATION PHYSICIANS, OF PLLC N132 HYDRONEPHRO 03-31-2016 [facility] SIS W/RENAL [facility] & URETRL INC CALCULOUS OBST A48805 OTHER SPEC 03-31-2016 [facility] RELATED INC COND 2ND TRIMESTER Z3A26 26 WEEKS 03-31-2016 [facility] GESTATION [facility] OF INC [id number] MAT CARE 03-24-2016 [facility] HEALTH KNWN/SUSP MEDICAL POOR FTL GROUP GRTH 2ND TRI UNS Z3A23 23 WEEKS 03-24-2016 [facility] OF MEDICAL GROUP Z57926 SUPERVISION 03-21-2016 [facility] OT HIGH PHYSICIANS RISK PREG GROUP SECOND TRIMESTER Z3A21 21 WEEKS 03-21-2016 [facility] GESTATION PHYSICIANS OF GROUP O2692 03-20-2016 [facility] RELATED PHYSICIANS, CONDITIONS PLLC UNS 2ND TRIMESTER Z3A24 24 WEEKS 03-20-2016 [facility] GESTATION [facility] OF INC Z3201 ENCOUNTER 03-05-2016 [facility] FOR PHYSICIANS GROUP TEST RESULT POSITIVE 35205 ABDOMINAL 07-05-2014 [facility] OTHER REGIONAL SPECIFIED MEDICAL C SITE 74913 ABDOMINAL 05-09-2014 [place] [facility], RADIOLOGY UNSPECIFIED PLL [...] 03 04 30 30 00 RI Ac VT 37 -3 -2 .0 00 TE ti [...] 02 03 30 30 00 RI Ac VT 37 -1 -1 .0 00 TE ti [...] CY TA BL #1 ET 60 7 VT 00 01 02 30 7 00 RI [...] 1 60 PH CE AR TA MA GA CY NO PH #5 91 7. 5- 32 5 Procedures Procedure DOS Code Location Performer Comment URNLS DIP 96478 [facility] PRESYBETERIAN [address] [place] [address] STICK/TAB [facility] LET REAGENT AUTO MICROSCOP Y SUSCEPTIB 26842 [facility] PRESYBETERIAN LTY STDY 7 [facility] ANTIMICRB [facility] IAL MICRO/AGA R DILUTJ POSTPARTU 26007 [facility]IAN ROGERS M [address] MEDICAL SEPARATE GROUP PROCEDURE CUL BACT 41885 [facility]IAN PRESYBETERIAN AEROBIC 7 [facility] ADDMUS[facility] METHS DEFINITIV E EA ISOL CULTURE 68726 [facility]IAN PRESYBETERIAN BACTERIAL [address] [place] [address] QUANTTATI VE COLONY COUNT URINE CULTURE 09035 [facility]IAN PRESYBETERIAN TYPING 7 [facility] IMMUNOLOG [facility] IC OTH/THN IMMUNOFLU ORES BREAST E0603 GOULDS GOULDS PUMP 7 DISCOUNT [facility] [employer] MEDICAL MEDICAL ANY TYPE [facility] 35146 [facility] ROGERS DISCHARGE 7 [facility] MEDICAL MANAGEMEN GROUP T 30 MIN/< SBSQ 75332 [place] [address] HEALTH CARE/DAY MEDICAL 15 GROUP MINUTES VAGINAL 53977 [facility]ETERIAN ROGERS DELIVERY 7 [facility] GROUP NEURAXIAL 01004 [facility] [place] LABOR 7 ANESTHESI ANALG/ANE A PSC S PLND VAGINAL DELIVERY DOPPLER 47992 PRESYBETERIANMyrtle CARUSO VELOCIMET 7 [facility] RY MEDICAL UMBILICAL GROUP ARTERY INITIAL [address] [place] [address] HEALTH CARE/DAY MEDICAL 30 GROUP MINUTES US PREG 92136 PRESY[facility]ETERIAN ZULY UTERUS 7 [facility] REAL TIME MEDICAL F/U GROUP TRNSABDL PER FETUS 12521 PRESYBETERIANEDGAR CARUSO BIOPHYSIC 7 [facility] AL MEDICAL PROFILE GROUP W/O NON-STRES S TESTING 14541 PRESYBETERIAN PRESYBETERIAN NONSTRESS [address] [place] [address] TEST [facility] 79297 [facility]ET[facility]IAN BOWMAN NONSTRESS 7 HEALTH TEST MEDICAL GROUP 58138 PRES[facility]ETERIAN PRESYBETERIAN NONSTRESS 7 HEALTH HEALTH TEST [facility] 28583 PRESYBETERIAN DANIELLE BIOPHYSIC 7 HEALTH AL MEDICAL PROFILE GROUP NON-STRES S TESTING HOSPITAL G0378 PRES[facility]ETERIAN PRESYBETERIAN OBSERVATI 7 HEALTH HEALTH ON [facility] SERVICE PER HOUR 12735 PRES[facility]BETERIAN DANIELLE BIOPHYSIC 7 HEALTH AL MEDICAL PROFILE GROUP NON-STRES S TESTING [facility] 49708 PRES[facility]ETERIAN PRESYBETERIAN PRSMPTV 7 HEALTH HEALTH PTHGNC [facility] ORGANISM SCRN W/COLONY ESTIMJ IAADIADOO 23917 PRES[facility]ETERIAN PRESYBETERIAN 7 HEALTH HEALTH STREPTOCO [facility] CCUS GROUP A [address] [facility]IAN BOWMAN NONSTRESS 7 HEALTH TEST MEDICAL GROUP INJECTION J1170 PRESYBETERIAN PRESYBETERIAN 7 HEALTH HEALTH HYDROMORP [facility] PHIL UP TO 4 MG THERAPEUT 29889 PRES[facility]ETERIAN PRESYBETERIAN IC 7 HEALTH HEALTH PROPHYLAC [facility] TIC/DX INJECTION SUBQ/IM CALCULUS 05116 PRESYBETERIAN PRESYBETERIAN QUANTITAT 7 HEALTH HEALTH SUZAN [facility] CHEMICAL US PREG 70003 PRESYBETERIAN PRESYBETERIAN UTERUS 7 HEALTH HEALTH REAL TIME [facility] F/U TRNSABDL PER FETUS OBSERVATI 60627 PRESYBETERIAN BOWMAN ON CARE 7 HEALTH DISCHARGE MEDICAL GROUP MANAGEMEN T THER 75830 PRES[facility]ETERIAN PRESYBETERIAN PROPH/DX 7 HEALTH HEALTH NJX EA [facility] SEQL IV PUSH SBST/DRUG FAC DRUG TEST 43080 PRES[facility]ERIAN PRESYBETERIAN PRSMV 7 HEALTH HEALTH QUAL [facility] INSTRMNT OPTCL OBS PER DAY INJ J0702 PRES[facility]IAN PRESYBETERIAN BETAMETHA 7 HEALTH HEALTH SONE [facility] ACETATE & PHOSPHATE 3 [place] [address] PRES[facility]ETERIAN PRESYBETERIAN BIOPHYSIC 7 HEALTH HEALTH AL [facility] PROFILE W/O NON-STRES S TESTING INJECTION J2550 PRESY[facility]ETERIAN PRESYBETERIAN 7 [facility] INE HCL UP TO 50 MG HOSPITAL G0378 PRES[facility]ETERIAN PRESYBETERIAN OBSERVATI 7 [facility] HEALTH ON [facility] SERVICE PER HOUR INJECTION J2405 PRES[facility]BETERIAN PRESYBETERIAN 7 [facility] ONDANSETR [facility] ON HCL PER 1 MG INJECTION J2550 PRESYBETERIAN PRESYBETERIAN 7 [facility] INE HCL UP TO 50 MG COMPREHEN 53896 PRESYBETERIAN QUEST SIVE 7 [facility] DIAGNOSTI METABOLIC [place] CS PANEL INCORPORA T THERAPEUT 71724 PRES[facility]ETERIAN PRESYBETERIAN IC 7 [facility] HEALTH INJECTION [facility] IV PUSH EACH NEW DRUG URNLS DIP 25732 PRES[facility]IAN LAB INDER 7 [facility] FADI STICK/TAB [place] [facility] LET REAGENT AUTO MICROSCOP Y INJ J0702 PRES[facility]ETERIAN PRESYBETERIAN BETAMETHA 7 [facility] SONE [facility] ACETATE & PHOSPHATE 3 MG THER 44387 PRESYBETERIAN PRESYBETERIAN PROPH/DX 7 [facility] HEALTH NJX EA [facility] SEQL IV PUSH SBST/DRUG FAC THER 86185 PRESYBETERIAN PRESYBETERIAN PROPH/DX 7 [facility] NJX IV [facility] PUSH SINGLE/1S T SBST/DRUG INJECTION J1170 PRESYBETERIAN PRESYBETERIAN 7 [facility] HYDROMORP [facility] PHIL [place] 4 [place] [address] PRES[facility]ETERIAN PRESYBETERIAN NONSTRESS 7 [facility] HEALTH TEST [facility] THERAPEUT 29672 PRES[facility]ETERIAN BOWMAN IC 7 HEALTH PROPHYLAC MEDICAL TIC/DX GROUP INJECTION SUBQ/IM INJECTION J2790 PRESYBETERIAN BOWMAN RHO D IG 7 [facility] HUMAN MEDICAL FULL DOSE [place] [address] [place] [address] [facility] RETROPERI 7 MEDICAL TONEAL IMAGING REAL TIME ASS W/IMAGE LIMITED DOPPLER 20557 [facility] ROSASMER VELOCIMET 7 MEM HOSP RY INC UMBILICAL ARTERY COMPREHEN 82505 [facility] LUU SIVE 7 MEM HOS[facility]OS[facility] METABOLIC INC INC PANEL CALCULUS 75364 [facility] LUU XRAY 7 MEM HOS[facility] MEM [facility]OSP DIFFRACTI INC INC ON ANTIBODY 99719 [facility] SCREEN 7 [facility] RBC EACH INC INC SERUM TECHNIQUE 12926 [facility] L[facility] BIOPHYSIC 7 [facility] AL INC INC PROFILE W/O NON-STRES S TESTING UNCLASSIF J3490 [facility] L[facility] IED DRUGS 7 [place] [address] [facility] LUU 7 MEM HOS[facility] UTERUS INC INC LIMITED 1/> [place] [address] [facility] LUU INFUSION 7 MEM H[facility] THERAPY/P INC INC ROPHYLAXI S /DX 1ST TO 1 HR URNLS DIP 74554 [facility] LUU 7 MEM [facility] STICK/TAB INC [place] [address] [facility] RETROPERI 7 [facility] TONEAL INC INC REAL TIME W/IMAGE COMPLETE THER 95033 [facility] PROPH/DX 7 MEM [facility] NJX EA INC [place] [address] [facility] INFUSION 7 [facility] THERAPY/P INC INC ROPHYLAXI S /DX 1ST TO 1 HR THERAPEUT 93459 [facility] IC 7 [facility]OS[facility] INJECTION INC INC IV PUSH EACH NEW DRUG URNLS DIP 12064 [facility] LUU 7 MEM HOSP [facility]OSP STICK/TAB INC INC LET REAGENT AUTO MICROSCOP Y THERAPEUT 49733 [facility]UU IC 7 [facility] PROPHYLAC INC INC TIC/DX INJECTION SUBQ/IM CULTURE 15250 [facility] BACTERIAL 7 [facility] INC INC QUANTTATI VE COLONY COUNT URINE UNCLASSIF J3490 [facility] IED DRUGS 7 [facility] INC INC COLLECTIO 56224 [facility] N VENOUS 7 MEM [facility] [place] [address] [facility] LUU UREA 7 MEM HOS[facility] MEM [facility]OS[facility] NITROGEN INC INC QUANTITAT SUZAN CREATININ 93366 [facility] L[facility] E BLOOD 7 MEM HOSP [facility]OS[facility] INC INC THER 45410 [facility] PROPH/DX 7 [facility] H[facility] NJX IV INC INC PUSH SINGLE/1S T SBST/DRUG 93773 [facility] DANII NONSTRESS 7 PHYSICIAN TEST S GROUP URNLS DIP 09043 [facility] LUU 7 MEM HOSP [facility]OS[facility] STICK/TAB INC INC LET REAGENT AUTO MICROSCOP Y THERAPEUT 81891 [facility] LUU IC 7 [facility] H[facility] INJECTION INC INC IV PUSH EACH NEW DRUG THERAPEUT 75941 [facility] LUU IC 7 [facility] H[facility] PROPHYLAC INC INC TIC/DX INJECTION SUBQ/IM UNCLASSIF J3490 [facility] LUU IED DRUGS 7 [facility] INC INC OBSERVATI 97776 [facility] DANII ON CARE 6 PHYSICIAN DISCHARGE S GROUP MANAGEMEN T INITIAL 10055 [facility] DANII OBSERVATI 6 PHYSICIAN ON S GROUP CARE/DAY 50 MINUTES OBSERVATI 94358 [facility] DANII ON CARE 6 PHYSICIAN DISCHARGE S GROUP MANAGEMEN HOSPITAL G0378 [facility] LUU OBSERVATI 6 [facility] ON INC INC SERVICE PER HOUR DRUG TST G0477 [facility] L[facility] PRESUMP;C 6 MEM H[facility] PBL BEING INC INC READ DC OPT OBV ONLY HOSPITAL G0378 [facility] LUU OBSERVATI 6 [facility] ON INC INC SERVICE PER HOUR INITIAL 47989 [facility] DANII OBSERVATI 6 PHYSICIAN ON S GROUP CARE/DAY 30 MINUTES URNLS DIP 34271 [facility] LUU 6 MEM HOS[facility]OS[facility] STICK/TAB INC INC LET REAGENT AUTO MICROSCOP Y THERAPEUT 52858 [facility] LUU IC 6 [facility] H[facility] PROPHYLAC INC INC TIC/DX INJECTION SUBQ/IM DRUG TST G0477 [facility] DANII PRESUMP;C 6 PHYSICIAN PBL BEING S GROUP READ DC OPT OBV ONLY IAADIADOO 73307 [facility] 5 REGIONAL STREPTOCO MEDICAL CCUS C GROUP A IAADIADOO 21673 [facility] MARICEL 5 REGIONAL INFLUENZA MEDICAL C URNLS DIP 76099 [facility] 5 REGIONAL STICK/TAB MEDICAL LET RGNT C NON-AUTO W/[place] [address] [facility] OFFICE 5 REGIONAL REG MEDICAL SCHEDD C EVN WKEND/HOL IDAY HRS URINE 13929 [facility] MARICEL 5 REGIONAL TEST MEDICAL [place] [address] [place] [facility] ABDOMEN & 5 [facility] PEL[facility] RADIOLOGY W/O PLLC CONTRAST MATERIAL Encounters Encounter Start End Date Code Location Performer Type Date HOSPITAL [facility] - 7 7 HEALTH OUTPATIEN [facility] PRESYBETERIAN - 7 7 HEALTH INPATIENT [facility] PRESYBETERIAN - 7 7 HEALTH OUTPATIEN [facility] OFFICE 90597 PRES[facility]ETERIAN BOWMAN OUTPATIEN 7 7 HEALTH T VISIT MEDICAL 15 GROUP MINUTES OFFICE 99773 [facility] BOWMAN OUTPATIEN 7 7 HEALTH T VISIT MEDICAL 15 GROUP MINUTES OFFICE 41604 [facility] DANIELLE OUTPATIEN 7 7 HEALTH T VISIT MEDICAL 15 GROUP MINUTES [facility]OSPITAL [facility] - 7 7 HEALTH OUTPATIEN [facility] PRESYBETERIAN - 7 7 HEALTH OUTPATIEN [facility] OFFICE 88064 PRES[facility]ERIAN DANIELLE OUTPATIEN 7 7 HEALTH T VISIT MEDICAL 15 GROUP MINUTES OFFICE 44964 [facility] OUTPATIEN 7 7 HEALTH T VISIT MEDICAL 15 GROUP MINUTES OFFICE 08322 [facility] BOWMAN OUTPATIEN 7 7 HEALTH T VISIT MEDICAL 15 GROUP MINUTES [facility] PRESYBETERIAN - 7 7 HEALTH OUTPATIEN [facility] OFFICE 66924 PRESYBETERIAN BOWMAN OUTPATIEN 7 7 HEALTH T NEW 45 MEDICAL MINUTES GROUP HOSPITAL BELL - 7 7 [facility] OUTPATIEN INC T EMERGENCY 44302 [facility] 7 7 [facility] DEPARTMEN INC T VISIT MODERATE SEVERITY EMERGENCY 13395 [facility] EDDY DEPT 7 7 PHYSICIAN VISIT S, [facility] HIGH SEVERITY& THREAT [facility] BELL - 7 7 MEM H[facility] OUTPATIEN INC T OFFICE 24206 [facility] DANII HARDY 7 7 PHYSICIAN T VISIT S GROUP 15 MINUTES EMERGENCY 33104 [facility] 7 7 [facility] DEPARTMEN INC T VISIT MODERATE SEVERITY HOSPITAL BELL - 7 7 [facility] OUTPATIEN INC T EMERGENCY 46171 BR[facility] MOJICA DEPT 7 7 PHYSICIAN VISIT S, [facility] HIGH SEVERITY& THREAT [facility] BELL - 7 7 MEM H[facility] OUTPATIEN INC T EMERGENCY 11289 [facility] 7 7 [facility] DEPARTMEN INC T VISIT LOW/MODER SEVERITY EMERGENCY 41865 [facility] HENNING 7 7 PHYSICIAN U DEPARTMEN S, [facility] T VISIT HIGH/URGE NT SEVERITY HOSPITAL BELL - 6 6 [facility] INPATIENT INC OFFICE 31275 URSULA WONG CONSULTAT 6 6 HEALTH ION MEDICAL NEW/ESTAB GROUP PATIENT 15 MIN HOSPITAL BELL - 6 6 [facility] OUTPATIEN INC T EMERGENCY 07739 [facility] 6 6 [facility] DEPARTMEN INC T VISIT LOW/MODER SEVERITY EMERGENCY 20441 BREND[facility] EDDY 6 6 PHYSICIAN DEPARTMEN S, [facility] T VISIT MODERATE SEVERITY HOSPITAL BELL - 6 6 [facility] OUTPATIEN INC T OFFICE 31908 [facility] DANII OUTPATIEN 6 6 PHYSICIAN T NEW 45 S GROUP MINUTES OFFICE 27715 [facility] MARICEL OUTPATIEN 5 5 REGIONAL T VISIT MEDICAL 15 C MINUTES
--- OUTSIDE RECORDS SUMMARY | 2016-09-04 20:25 | External Medical Summary Rpt ---
Author Author , Organization [employer] Address Unknown Phone Unavailable Care Team Providers [facility] Name Role Phone [facility] Unavailable Unavailable [facility], [facility] Unavailable Unavailable [facility], [facility] Unavailable Unavailable [facility], [facility] CARUSO, CARUSO Unavailable Unavailable DANIELLE, DANIELLE Unavailable Unavailable CHRISTINE CONNELLY, CHRISTINE MARICEL Unavailable Unavailable FOY, FOY Unavailable Unavailable ORLANDO, ORLANDO Unavailable Unavailable NUNU, NUNU Unavailable Unavailable [facility] Unavailable [facility]available [facility] Unavailable Unavailable INC, [facility] HEMMER, HEMMER Unavailable Unavailable HIETT, HIETT Unavailable Unavailable [facility] Unavailable Unavailable MEDICAL C, [facility], Unavailable Unavailable [facility] MOJICA, MOJICA Unavailable Unavailable [facility] Un[facility] Un[facility], [facility] INDER FADI Unavailable [...] Diagnosis DOS Provider Status R300 DYSURIA 07-17-2016 [facility] Z391 ENCNTR FOR 07-17-2016 [facility] CARE [...] W/O HEALTH SIGNIF [place] PROTEINURIA COMP CB [id number] MAT CARE 06-24-2016 [facility] OTH HEALTH KNWN/SUSP MEDICAL POOR FTL GROUP GRTH 3RD TRI UNS O665 ATTEMPTED 06-24-2016 [facility] APPLICATION HEALTH VACUUM MEDICAL EXTRACTOR & GROUP FORCEPS [id number] L & D COMP 06-24-2016 [facility] CORD AROUND HEALTH NECK W/O [place] COMPRS NA/UNS Z2913 ENCOUNTER 06-24-2016 [facility] FOR HEALTH PROPHYLACTI [place] C RHO IMMUNE GLOBULIN Z3A36 36 WEEKS 06-24-2016 [facility] GROUP O163 UNSPECIFIED 06-20-2016 [facility] MATERNAL HEALTH HYPERTENSIO [place] N 3RD TRIMESTER [id number] OTHER SPEC 06-20-2016 [facility] HEALTH RELATED MEDICAL COND 3RD GROUP TRIMESTER O288 OTH 06-20-2016 [facility] ABNORMAL HEALTH FIND ON [place] SCREENING MOTHER [id number] MATERNAL 06-20-2016 [facility] CARE OTH HEALTH SPEC MEDICAL PROB 3RD GROUP TRI NA/UNS [id number] PERSONAL 06-20-2016 [facility] HISTORY OF HEALTH URINARY [place] CALCULI Z3A35 35 WEEKS 06-17-2016 [facility] O289 UNS 06-13-2016 [facility] ABNORMAL HEALTH FIND ON [place] SCREENING MOTHER [id number] OLIGOHYDRAM 06-13-2016 [facility] NIOS THIRD HEALTH TRIMESTER [...] GROUP REMEDY HL STATE N1330 UNSPECIFIED 05-25-2016 [facility] HYDRONEPHRO [facility]ING [facility] SIS O4443 LOW LYING 05-25-2016 [facility] NOS/WO [facility] ASS HEMORRHAGE 3RD TRIM O4703 FALSE LABOR 05-25-2016 [facility] BEFORE [facility] CMPLETE INC WEEKS GEST 3RD TRI Z331 05-25-2016 [facility] INCIDENTAL IMAGING ASS Z3A32 32 WEEKS 05-25-2016 [facility]ATION [facility] OF INC N23 UNSPECIFIED 05-16-2016 [facility] RENAL [facility]YS[facility], COLIC PLLC P32031 05-16-2016 [facility] RELATED [facility]YSICIANS, RENAL PLLC DISEASE THIRD TRIMESTER [id number] STRAIN 05-16-2016 [facility]CLE FASC [facility] & TENDON INC NECK LEVL INIT ENC B64219P STRAIN 05-16-2016 [facility] FASCIA & INC TENDON LOW BACK INITIAL N69375I UNSPECIFIED 05-16-2016 [facility] SPRAIN [facility] LEFT HIP INC INITIAL ENCOUNTER Z3480 ENC 05-15-2016 [facility] NORMAL GROUP PREG UNS TRIMESTER N200 CALCULUS OF 05-09-2016 [facility] INC R1031 RIGHT LOWER 05-09-2016 [facility] PAIN INC Z3A30 30 WEEKS 05-09-2016 [facility]STATION [facility] OF INC O9989 OT DZ & 05-08-2016 [facility] COND COMP PHYSICIANS, PREG PLLC CHILDBIRTH PUERPERIUM Z3483 ENC 05-08-2016 [facility] OTH NORMAL INC 3 TRIMESTER Z3A31 31 WEEKS 05-08-2016 [facility] GESTATION PHYSICIANS, OF PLLC N132 HYDRONEPHRO 03-31-2016 [facility] SIS W/RENAL [facility] & URETRL INC CALCULOUS OBST E49284 OTHER SPEC 03-31-2016 [facility] RELATED INC COND 2ND TRIMESTER Z3A26 26 WEEKS 03-31-2016 [facility]ATION [facility] OF INC [id number] MAT CARE 03-24-2016 [facility] HEALTH KNWN/SUSP MEDICAL POOR FTL GROUP GRTH 2ND TRI UNS Z3A23 23 WEEKS 03-24-2016 [facility] [id number] SUPERVISION 03-21-2016 [facility] HIGH PHYS[facility]IANS RISK PREG GROUP SECOND TRIMESTER Z3A21 21 WEEKS 03-21-2016 [facility]ATION [facility]YS[facility] OF GROUP O2692 03-20-2016 [facility] RELATED PHYSICIANS, CONDITIONS PLLC UNS 2ND TRIMESTER Z3A24 24 WEEKS 03-20-2016 [facility] OF INC Z3201 ENCOUNTER 03-05-2016 [facility] TEST RESULT POSITIVE 19177 ABDOMINAL 07-05-2014 [facility] OTHER REGIONAL SPECIFIED MEDICAL C SITE 14397 ABDOMINAL 05-09-2014 [place], RADIOLOGY UNSPECIFIED PLL [...] 03 04 30 30 00 [place] Ac W[place] 37 -3 -2 .0 00 TE ti [...] 02 03 30 30 00 RI Ac WY 37 -1 -1 .0 00 TE ti [...] CY TA BL #1 ET 60 7 WY 00 01 02 30 7 00 RI [...] 1 60 PH CE AR TA MA CT CY NO PH #5 91 7. 5- 32 5 Procedures Procedure DOS Code Location Performer Comment URNLS DIP 15628 WORSHIP WORSHIP [address] [place] [address] STICK/TAB [facility] LET REAGENT AUTO MICROSCOP Y SUSCEPTIB 53441 WOR[facility] WORSHIP LTY STDY 7 [facility] ANTIMICRB [facility] IAL MICRO/AGA R DILUTJ POSTPARTU 87863 WOR[facility] JBER M [address] MEDICAL SEPARATE GROUP PROCEDURE CUL BACT 84660 WORSHIP WORSHIP AEROBIC 7 [facility] METHS DEFINITIV E EA ISOL CULTURE 55748 WORSHIP WORSHIP BACTERIAL [address] [place] [address] QUANTTATI VE COLONY COUNT URINE CULTURE 44130 WORSHIP WORSHIP TYPING 7 [facility] IMMUNOLOG [facility] IC OTH/THN IMMUNOFLU ORES BREAST E0603 [facility] G[facility] PUMP 7 DISCOUNT [facility]gl[facility].comSHIPROCK-[facility] feedPack [facility] ANY TYPE [facility] INC[facility] HOSP[facility] 94669 WORSHIP JBER DISCHARGE 7 [facility] MEDICAL MANAGEMEN GROUP T 30 MIN/< SBSQ 56347 [place] [address] HEALTH CARE/DAY MEDICAL 15 GROUP MINUTES VAGINAL 36970 WOR[facility] JBER DELIVERY 7 [facility] MEDICAL GROUP NEURAXIAL 70392 WORSHIP [place] LABOR 7 ANESTHESI ANALG/ANE A PSC S PLND VAGINAL DELIVERY DOPPLER 68667 WORSHIPMyrtle CARUSO VELOCIMET 7 [facility] RY MEDICAL UMBILICAL GROUP ARTERY INITIAL 15492 [place] [address] HEALTH CARE/DAY MEDICAL 30 GROUP MINUTES US PREG 06879 WORSHIP ZULY UTERUS 7 [facility] REAL TIME MEDICAL F/U GROUP TRNSABDL PER FETUS 98638 WORSHIPEDGAR CARUSO BIOPHYSIC 7 [facility] AL MEDICAL PROFILE GROUP W/O NON-STRES S TESTING 51865 WORSHIP WORSHIP NONSTRESS [address] [place] [address] TEST [facility] 71754 WORSHIP BOWMAN NONSTRESS 7 HEALTH TEST MEDICAL GROUP 39447 WORSHIP WORSHIP NONSTRESS 7 HEALTH HEALTH TEST [facility] 18672 WORSHIP DANIELLE BIOPHYSIC 7 HEALTH AL MEDICAL PROFILE GROUP NON-STRES S TESTING HOSPITAL G0378 WORSHIP WORSHIP OBSERVATI 7 HEALTH HEALTH ON [facility] SERVICE PER HOUR 55801 WORSHIP DANIELLE BIOPHYSIC 7 HEALTH AL MEDICAL PROFILE GROUP NON-STRES S TESTING [facility] 75270 WORSHIP WORSHIP PRSMPTV 7 HEALTH HEALTH PTHGNC [facility] ORGANISM SCRN W/COLONY ESTIMJ IAADIADOO 91993 WORSHIP WORSHIP 7 HEALTH HEALTH STREPTOCO [facility] [place] A [address] WORSHIP BOWMAN NONSTRESS 7 HEALTH TEST MEDICAL GROUP INJECTION J1170 WORSHIP WORSHIP 7 HEALTH HEALTH HYDROMORP [facility] PHIL UP TO 4 MG THERAPEUT 39044 WORSHIP WORSHIP IC 7 HEALTH HEALTH PROPHYLAC [facility] TIC/DX INJECTION SUBQ/IM CALCULUS 75143 WORSHIP WORSHIP QUANTITAT 7 HEALTH HEALTH SUZAN [facility] CHEMICAL US PREG 27081 WORSHIP WORSHIP UTERUS 7 HEALTH HEALTH REAL TIME [facility] F/U TRNSABDL PER FETUS OBSERVATI 90015 WORSHIP BOWMAN ON CARE 7 HEALTH DISCHARGE MEDICAL GROUP MANAGEMEN T THER 88422 WORSHIP WORSHIP PROPH/DX 7 HEALTH HEALTH NJX EA [facility] SEQL IV PUSH SBST/DRUG FAC DRUG TEST 87172 WORSHIP WORSHIP PRSMV 7 HEALTH HEALTH QUAL [facility] INSTRMNT OPTCL OBS PER DAY INJ J0702 WORSHIP WORSHIP BETAMETHA 7 HEALTH HEALTH SONE [facility] ACETATE & PHOSPHATE 3 MG 26286 WORSHIP WORSHIP BIOPHYSIC 7 HEALTH HEALTH AL [facility] PROFILE W/O NON-STRES S TESTING INJECTION J2550 WORSHIP WORSHIP 7 [facility] H[facility] 50 MG HOSPITAL G0378 WORSHIP WORSHIP OBSERVATI 7 [facility] HEALTH ON [facility] SERVICE PER HOUR INJECTION J2405 WORSHIP WORSHIP 7 [facility] ONDANSETR [facility] ON HCL PER 1 MG INJECTION J2550 WORSHIP WORSHIP 7 [facility] HCL UP TO 50 MG COMPREHEN 22878 WORSHIP QUEST SIVE 7 [facility] DIAGNOSTI METABOLIC HUSTLER CS PANEL INCORPORA T THERAPEUT 22656 WORSHIP WORSHIP IC 7 [facility] HEALTH INJECTION [facility] IV PUSH EACH NEW DRUG URNLS DIP 18718 WORSHIP LAB INDER 7 [facility] FADI STICK/TAB HUSTLER HOLDING LET REAGENT AUTO MICROSCOP Y INJ J0702 WORSHIP WORSHIP BETAMETHA 7 [facility] SONE [facility] ACETATE & PHOSPHATE 3 MG THER 08413 WORSHIP WORSHIP PROPH/DX 7 [facility] HEALTH NJX EA [facility] SEQL IV PUSH SBST/DRUG FAC THER 88413 WORSHIP WORSHIP PROPH/DX 7 [facility] NJX IV [facility] PUSH SINGLE/1S T SBST/DRUG INJECTION J1170 WORSHIP WORSHIP 7 [facility] HYDROMORP [facility] PHIL UP TO 4 MG 31377 WORSHIP WORSHIP NONSTRESS 7 [facility] HEALTH TEST [facility] THERAPEUT 84148 WORSHIP BOWMAN IC 7 HEALTH PROPHYLAC MEDICAL TIC/DX GROUP INJECTION SUBQ/IM INJECTION J2790 WORSHIP BOWMAN RHO D IG 7 [facility] HUMAN MEDICAL FULL DOSE [place] [address] [place] [address] [facility] RETROPERI 7 MEDICAL TONEAL IMAGING REAL TIME ASS W/IMAGE LIMITED DOPPLER 44143 [facility] ROSASMER VELOCIMET 7 MEM HOSP RY INC UMBILICAL ARTERY COMPREHEN 40849 [facility] LUU SIVE 7 MEM HOS[facility]OS[facility] METABOLIC INC INC PANEL CALCULUS 36245 [facility] LUU XRAY 7 [facility]OS[facility] DIFFRACTI INC INC ON ANTIBODY 94635 [facility] SCREEN 7 [facility] RBC EACH INC INC SERUM TECHNIQUE 33442 [facility] LUU BIOPHYSIC 7 [facility]OS[facility] AL INC INC PROFILE W/O NON-STRES S TESTING UNCLASSIF J3490 [facility] L[facility] IED DRUGS 7 [place] [address] [facility] LUU 7 [facility] UTERUS INC INC LIMITED 1/> [place] [address] [facility] LUU INFUSION 7 [facility] THERAPY/P INC INC ROPHYLAXI S /DX 1ST TO 1 HR URNLS DIP 67431 [facility] LUU 7 [facility] STICK/TAB INC [place] [address] [facility] L[facility] RETROPERI 7 [facility] TONEAL INC INC REAL TIME W/IMAGE COMPLETE THER 56348 [facility] LUU PROPH/DX 7 [facility]OS[facility] NJX EA INC [place] [address] [facility] LUU INFUSION 7 [facility] THERAPY/P INC INC ROPHYLAXI S /DX 1ST TO 1 HR THERAPEUT 59456 [facility] LUU IC 7 [facility]OS[facility] INJECTION INC INC IV PUSH EACH NEW DRUG URNLS DIP 43395 [facility] LUU 7 [facility] STICK/TAB INC INC LET REAGENT AUTO MICROSCOP Y THERAPEUT 41154 [facility] LUU IC 7 [facility] PROPHYLAC INC INC TIC/DX INJECTION SUBQ/IM CULTURE 58410 [facility] BACTERIAL 7 [facility] INC INC QUANTTATI VE COLONY COUNT URINE UNCLASSIF J3490 [facility] IED DRUGS 7 [facility] INC INC COLLECTIO 87903 BE[facility] LUU N VENOUS 7 MEM [facility] [place] [address] BE[facility] LUU UREA 7 MEM H[facility] MEM [facility]OS[facility] NITROGEN INC INC QUANTITAT SUZAN CREATININ 02844 [facility] LUU E BLOOD 7 MEM [facility]OS[facility] INC INC THER 46487 [facility]UU PROPH/DX 7 [facility] NJX IV INC INC PUSH SINGLE/1S T SBST/DRUG 73094 [facility] NON[facility]ESS 7 PHYSICIAN TEST S GROUP URNLS DIP 70847 [facility] LUU 7 [facility] STICK/TAB INC INC LET REAGENT AUTO MICROSCOP Y THERAPEUT 81436 [facility] LUU IC 7 [facility] INJECTION INC INC IV PUSH EACH NEW DRUG THERAPEUT 31942 [facility] LUU IC 7 [facility] PROPHYLAC INC INC TIC/DX INJECTION SUBQ/IM UNCLASSIF J3490 [facility] L[facility] IED DRUGS 7 [facility] INC INC OBSERVATI 47277 [facility] 6 PHYSICIAN DISCHARGE S GROUP MANAGEMEN T INITIAL 28834 [facility] OBSERVATI 6 PHYSICIAN ON S GROUP CARE/DAY 50 MINUTES OBSERVATI 51083 [facility] 6 PHYSICIAN DISCHARGE S GROUP MANAGEMEN HOSPITAL G0378 [facility] LUU OBSERVATI 6 [facility] ON INC INC SERVICE PER HOUR DRUG TST G0477 [facility] PRESUMP;C 6 [facility] PBL BEING INC INC READ DC OPT OBV ONLY HOSPITAL G0378 [facility] LUU OBSERVATI 6 [facility] ON INC INC SERVICE PER HOUR INITIAL 49207 [facility] OBSERVATI 6 PHYSICIAN ON S GROUP CARE/DAY 30 MINUTES URNLS DIP 67403 [facility] LUU 6 [facility] STICK/TAB INC INC LET REAGENT AUTO MICROSCOP Y THERAPEUT 22930 [facility] LUU IC 6 [facility] PROPHYLAC INC INC TIC/DX INJECTION SUBQ/IM DRUG TST G0477 [facility] PRESUMP;C 6 PHYSICIAN PBL BEING S GROUP READ DC OPT OBV ONLY IAADIADOO 90319 [facility] 5 REGIONAL STREPTOCO MEDICAL CCUS C GROUP A IAADIADOO 96163 [facility] MARICEL 5 REGIONAL INFLUENZA MEDICAL C URNLS DIP 53627 [facility] 5 REGIONAL STICK/TAB MEDICAL LET RGNT C NON-AUTO [place] PR[place] [address] [facility] OFFICE 5 REGIONAL REG MEDICAL SCHEDD C EVN WKEND/HOL IDAY HRS URINE 54318 [facility] MARICEL 5 REGIONAL TEST MEDICAL [place] [address] [place] [facility] ABDOMEN & 5 [facility] W/O PLLC CONTRAST MATERIAL Encounters Encounter Start End Date Code Location Performer Type Date HOSPITAL WORSHIP - 7 7 HEALTH OUTPATIEN [facility] WORSHIP - 7 7 HEALTH INPATIENT [facility] WORSHIP - 7 7 HEALTH OUTPATIEN [facility] OFFICE 25619 WORSHIP BOWMAN OUTPATIEN 7 7 HEALTH T VISIT MEDICAL 15 GROUP MINUTES OFFICE 64619 [facility] BOWMAN OUTPATIEN 7 7 HEALTH T VISIT MEDICAL 15 GROUP MINUTES OFFICE 34946 WORSHIP DANIELLE OUTPATIEN 7 7 HEALTH T VISIT MEDICAL 15 GROUP MINUTES HOSPITAL WORSHIP - 7 7 HEALTH OUTPATIEN [facility] WORSHIP - 7 7 HEALTH OUTPATIEN [facility] OFFICE 88217 WORSHIP DANIELLE OUTPATIEN 7 7 HEALTH T VISIT MEDICAL 15 GROUP MINUTES OFFICE 73946 [facility] BOWMAN OUTPATIEN 7 7 HEALTH T VISIT MEDICAL 15 GROUP MINUTES OFFICE 18765 [facility] BOWMAN OUTPATIEN 7 7 HEALTH T VISIT MEDICAL 15 GROUP MINUTES [facility] WORSHIP - 7 7 HEALTH OUTPATIEN [facility] OFFICE 11050 WORSHIP BOWMAN OUTPATIEN 7 7 HEALTH T NEW 45 MEDICAL MINUTES GROUP HOSPITAL BELL - 7 7 [facility] OUTPATIEN INC T EMERGENCY 03050 [facility] 7 7 [facility] DEPARTMEN INC T VISIT MODERATE SEVERITY EMERGENCY 65063 [facility] EDDY DEPT 7 7 PHYSICIAN VISIT S, [facility] HIGH SEVERITY& THREAT [facility] HOSPITAL BELL - 7 7 [facility] OUTPATIEN INC T OFFICE 32260 [facility] HARDY 7 7 PHYSICIAN T VISIT S GROUP 15 MINUTES EMERGENCY 01188 BE[facility] 7 7 [facility] DEPARTMEN INC T VISIT MODERATE SEVERITY HOSPITAL BELL - 7 7 [facility] OUTPATIEN INC T EMERGENCY 56790 [facility] MOJICA DEPT 7 7 PHYSICIAN VISIT S, [facility] HIGH SEVERITY& THREAT [facility] BELL - 7 7 [facility] OUTPATIEN INC T EMERGENCY 01204 [facility] 7 7 [facility] DEPARTMEN INC T VISIT LOW/MODER SEVERITY EMERGENCY 32275 [facility] HENNING 7 7 PHYSICIAN U DEPARTMEN S, [facility] T VISIT HIGH/URGE NT SEVERITY HOSPITAL BELL - 6 6 [facility] INPATIENT INC OFFICE 72227 URSUL[facility] WONG CONSULTAT 6 6 HEALTH ION MEDICAL NEW/ESTAB GROUP PATIENT 15 MIN HOSPITAL BELL - 6 6 [facility] OUTPATIEN INC T EMERGENCY 84269 [facility] 6 6 [facility] DEPARTMEN INC T VISIT LOW/MODER SEVERITY EMERGENCY 49035 [facility]END[facility] EDDY 6 6 PHYSICIAN DEPARTMEN S, [facility] T VISIT MODERATE SEVERITY HOSPITAL BELL - 6 6 [facility] OUTPATIEN INC T OFFICE 51921 [facility] 6 6 PHYSICIAN T NEW 45 S GROUP MINUTES OFFICE 52009 [facility] MARICEL OUTPATIEN 5 5 REGIONAL T VISIT MEDICAL 15 C MINUTES
--- OUTSIDE RECORDS SUMMARY | 2016-09-04 20:25 | External Medical Summary Rpt ---
Demographics Preferred Language Sudanese Marital Status Unknown Confucianist Affiliation Unknown Race Unknown Ethnic Group Unknown Author Author , Organization [employer] Address Unknown Phone Unavailable Purpose Continuity of Care Document - through 2016 Immunization No patient found.
--- NOTE | 2016-09-04 20:31 | Emergency Room Report ---
History of Present Illness Time Seen by 2006 Presenting Problem in Triage Pt arrived:Walked Presenting Problem:C/O RIGHT FLANK PAIN ALL DAY. 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 N Clinical Suspician of Infection? N Mental Status: 1 - Regular (Normal Baseline) Sepsis Risk:Severe Sepsis Risk Have you (or family members/close friends) recently traveled outside the [place]? N If Yes, where/when: Have you had exposure to infectious disease within the past month? N TB? Other? Specify: Source patient, RN notes reviewed, family, RN/MD Exam Limitations no limitations Comment This is a 25-year-old female patient presenting to the emergency room with RIGHT flank pain radiating to RIGHT lower quadrant abdomen, since earlier this morning, associated with occasional episodes of nausea and vomiting. Patient is well-known with kidney stones, and multiple previous ER visits to this facility in the past. She has recently delivered. Patient has any recent travel or exposure to sick contacts. ALLERGIES Coded Allergies: Penicillins (S-DIFF. BREATHING 03/03/16) lamotrigine (From LAMICTAL) (02/18/16) morphine (02/18/16) Home Medications Reported Medications SERTRALINE HYDROCHLORIDE (Zoloft 100MG) 200 MG PO DAILY Clonazepam (Clonazepam 1MG) 1 MG PO DAILY BUPROPION HCL SR (Wellbutrin SR 100MG) 100 MG PO DAILY History Medical History General CAD? No Angina: No ID: No Hypertension? No Hyperlipidemia? No CHF? No DVT? No PE? No COPD? No Asthma? No Anemia? No GERD? No Gastric ulcers? No GI Bleed? No Hernia? No Thyroid Problems? No Hypothyroidism? No CVA? No Seizures? No Diabetes? No Renal Insuffiency? No End Stage Renal Disease? No UTI? Yes Stones? Yes BPH? No GB Disease: No Nephritic Syndrome? No Asplenia? No Hepatitis? No Sickle Cell Disease? No Arthritis? No Migraines? No Cataracts? No Glaucoma? No MRSA? No HIV? No TB? No Anxiety? No Depression? No Cancer? No More? 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 Physical Exam Vital Signs Vital Signs Date Time Temp Pulse Resp B/P Pulse O2 O2 Flow FiO2 Ox Delivery Rate 09/04 2212 80 20 111/68 99 09/04 2137 98.8 116 20 98/60 98 09/046 20 09/04 2042 20 09/04 2013 98.8 123 24 146/115 96 General Appearance normal appearance, WD/WN, severe distress Neck normal inspection, non-tender, supple, full range of motion Respiratory Status Yes: trachea midline, chest symmetrical, non tender chest. No: respiratory distress. Lung Sounds bilateral: normal breath sounds, lungs clear. 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 Yes Adrien was queried for this patient? No Reason not queried - hospital network issues Risks/benefits of using a controlled substance for treatment were discussed w/pt by me Comment Upon evaluation patient appears medically stable, clinically improving, in no acute distress. Advised patient results obtained, need to make dietary changes consistent with her history of kidney stones, and follow-up with one of the local neurologists early next week. Results/Orders Laboratory Tests 09/04/162039: Sodium 138, Potassium 3.7, Chloride 103, Carbon Dioxide 23, BUN 11, Creatinine 0.9, Estimated Creat Clear 109, Estimated GFR (MDRD) 76, Glucose 80, Calcium 8.6 , Total Bilirubin 0.3, AST 22, ALT 26, Alkaline Phosphatase 81, Total Protein 8.0, Albumin 3.9, Globulin 4.1 H, Albumin/Globulin Ratio 1.0 L, Amylase 67, Lipase 88, WBC 9.3, RBC 3.72 L, Hgb 10.1 L, Hct 32.8 L, MCV 88.1, RDW 16.6, Plt Count 317, MPV 6.3 L, Gran % 61.4, Gran # 5.7, Lymphocytes % 31.7, Monocytes % 4.1, Eosinophils % 2.4, Basophils % 0.4, Lymphocytes # 3.0, Monocytes # 0.4, Eosinophils # 0.2, Basophils # 0.0, PUBS MCHC 30.9 L, MCH 27.2 09/04/162009: Urine Color YELLOW, Urine Appearance CLEAR, Urine pH 5.5, Ur Specific [place] 1.020, Urine Protein NEGATIVE, Urine Ketones NEGATIVE, Urine Blood 3+ H, Urine Nitrate NEGATIVE, Urine Bilirubin NEGATIVE, Urine Urobilinogen 0.2, Ur Leukocyte Esterase TRACE H, Urine Glucose NEGATIVE Current Medication Orders Sig/Emerald Start time Last Medication Dose Route Stop Time Status Admin Promethazine HCl 0 .STK-MED ONE 09/04 2102 DC .ROUTE Hydromorphone HCl 0 .STK-MED ONE 09/04 2101 DCr .ROUTE Hydromorphone HCl 1 MG ONCE ONE 09/04 2099 DCr 09/04 IV 09/04 Promethazine HCl 25 MG ONCE ONE 09/04 2099 DC 09/04 IV 09/04 Sodium Chloride 25 ML ONCE ONE 09/04 2099 DC 09/04 IV 09/04 Sodium Chloride 1,000 ML .STK-MED ONE 09/04 2045 DC IV Hydromorphone HCl 0 .STK-MED ONE 09/04 2022 DCr .ROUTE Ondansetron HCl 0 .STK-MED ONE 09/04 2022 DC .ROUTE Hydromorphone HCl 1 MG ONCE ONE 09/04 2014 DCr 09/04 IV 09/04 Ondansetron HCl 4 MG ONCE ONE 09/04 2014 DC 09/04 IV 09/04 Sodium Chloride 1,000 ML .Q1H1M 09/04 2014 DC 09/04 IV 09/04 Sodium Chloride 10 ML PRN PRN 09/04 2014 DCD IV 09/05 2008 Orders Procedure Date/time Status DIET-NOTHING BY MOUTH 09/05 B Active KIDNEY STONE ANALYSIS 09/[address] ABD/PELVIS REQ 09/05 2007 Complete URINALYSIS/COMPLETE 09/05 2007 Complete URINE 09/05 2007 Complete LIPASE 09/05 2007 Complete CBC WITH AUTO DIFF 09/05 2007 Complete CHEM 12 PROFILE 09/05 2007 Complete AMYLASE 09/05 2007 Complete XRAY/CT/US XRAY/CT/US CT abdomen, pelvis CT interpretation by discussed w/radiologist CT Results abnormal Comment See radiologist's report Departure Departure Time of Disposition 2199 Disposition DC Home or Self Care(routine) Clinical Impression Primary Impression: Hematuria Secondary Impressions: Nephrolithiasis Condition STABLE Referrals Rebeca ZHAO,[place]: 5 Days-Call Office Patient Instructions DI for Hematuria, DI for Kidney Stones Additional Instructions Please strain your urine, drink plenty of fluids, take the pain medications as directed, follow-up with Dr. Jose or Dr. Zimmerman at your earliest convenience. Discharge Counseling Counseled pt/family regarding diagnosis, test results, medications/RX, home care, follow up needs Comment Please strain your urine, drink plenty of fluids, take the pain medications as directed, follow-up with Dr. Jose or Dr. Zimmerman at your earliest convenience. Prescriptions Current Visit Scripts HYDROCODONE/ACETAMINOPHEN (Lortab 10-325 MG Tablet) 1 TAB PO TIDP PRN pain #12 TAB ED Critical Care Critical Care No at 0139
[2016-09-04 20:51] LABS: HEMOGLOBIN 10.1 g/dL (12.2-16.2); LYMPH % 31.7 % (10-50.0)
--- NOTE | 2016-09-04 21:56 | RADIOLOGY REPORT PS360 ---
CT ABD PELVIS W/O CONTRAST Ordering Physician: Snader Smith MD Patient Age: 25 years: Female HISTORY: RT FLANK PAIN Patient reports history of kidney stones, history lists previous lithotripsy x3 TECHNIQUE: CT abdomen pelvis with no IV contrast. Sagittal and coronal reconstruction CT workstation COMPARISON : CT abdomen pelvis08/25/2016 CT. Ultrasound kidneys 05/25/2016 & Mar 2017 ultrasound kidneys FINDINGS Lung bases are clear. Heart normal size. Abdomen/pelvis. Lack of oral and IV contrast decreases sensitivity overall Liver, spleen, pancreas, adrenals unremarkable & unchanged since previous study Gallbladder. No discrete stones TRACT LEFT KIDNEY. No change. No calculi. Moderate/slightly generous extra renal pelvis unchanged since prior study no hydronephrosis.. Normal, modest caliber left ureter with no ureteral obstruction evident. Tiny calcifications in the left pelvis most likely within small bowel loop right kidney RIGHT KIDNEY: Mild additional fullness of the right pelvicalyceal system versus recent study.. Perhaps subtle hydronephrosis hydronephrosis on the right which is very slightly more apparent than on previous CT study 08/25/2016. There is generous right ureter down to the pelvis..- To where it crosses the iliac vessels enters deep towards the pelvis. Difficult to follow beyond this point I. However I believe we do see the distal most ureter and appears normal size. No calculi evident here. I would note the patient had more prominent hydronephrosis of pattern May 25, 2016 Upper normal uterus which may reflect residual relatively recent changes. No adnexal masses. No fluid in cul-de-sac. Similar changes at the right ureter may still be related to hydronephrosis of Urinary bladder moderately distended with no calculi. Phleboliths at the pelvic basin unchanged since prior study. . GI TRACT..: Moderate fluid is seen at the small bowel loops at pelvis. Could reflect a mild localized ileus but unimpressive. Proximal and remainder small bowel unremarkable. Large bowel. Generous gas along with moderate/generous stool throughout colon.. Generous Low-density stool throughout right colon. The region of the terminal ileum appears normal. No good evidence of appendicitis Osseous structures appear satisfactory. --IMPRESSION: 1. No urinary tract calculi evident. No calculi seen at the kidneys nor ureters or bladder (Patient Gives history of stones and lithotripsy.- But No radiopaque calculi evident radiographically at kidneys or elsewhere at tract on study nor prior CT 08/25/2016 ) 2. However there is Mild dilatation of right pelvicalyceal system, with subtle right hydronephrosis, very slight more pronounced than 08/25/2016. Appearance Could reflect recently passed stone, or urinary tract infection... Conceivably no significant bleeding blood clots could yield partial obstruction as well. 3. If hematuria and/or right flank symptoms persist, urology follow-up would be encouraged
[2016-09-04] MEDS ORDERED: LORTAB 10/3251 TAB PO (22:02)
[2016-09-04 22:12] VITALS: BP 111/68
== END 2016-09-04 22:13 | disposition home or self-care (01) ==
LOC: ER 20:02
PROVIDERS: Emergency Medicine
DX: N13.2 Hydronephrosis with renal and ureteral calculous obstruction (principal); Z87.442 Personal history of urinary calculi
CPT/HCPCS: J2405

== ENCOUNTER 2016-11-05 14:48 | Emergency (ER) | payer MEDICAID ==
[~2016-11-05] VITALS: Ht 162.6 cm; Wt 77.1 kg
[~2016-11-05 14:48] MED LIST changes: +LOESTRIN 21 1/21 TAB PO; +LORTAB 10/3251 TAB PO
--- OUTSIDE RECORDS SUMMARY | 2016-11-05 16:10 | External Medical Summary Rpt ---
Author Author , Organization [employer] Address Unknown Phone Unavailable Care Team Providers Care Slicing Machine Operator Name Role Phone [facility] Un[facility] Unavailable [facility], [facility] Unavailable Unavailable [place], [facility] Unavailable Unavailable [facility], [facility] CARUSO, CARUSO Unavailable Unavailable DANIELLE, DANIELLE Unavailable Unavailable BROWN MARICEL, CHRISTINE MARICEL Unavailable Unavailable FOY, FOY Unavailable Unavailable ANA III, ANA Unavailable Unavailable III ORLANDO, ORLANDO Unavailable Unavailable NUNU, NUNU Unavailable Unavailable [facility] Unavailable [facility] Unavailable Unavailable INC, [facility] HEMMER, HEMMER Unavailable Unavailable HIETT, HIETT Unavailable Unavailable [facility] Unavailable Unavailable MEDICAL C, [facility], Unavailable Unavailable [facility] MOJICA, MOJICA Unavailable Unavailable [facility], [facility] Unavailable Unavailable HOLDINGS, [facility] MALIA, MALIA Unavailable Unavailable BOWMAN, BOWMAN Unavailable Unavailable [facility], Unavailable Unavailable JESUS, [facility], [facility] Unavailable Unavailable PLLC, [facility] ZULEMA KELVIN, ZULEMA Unavailable Unavailable [facility] Unavailable Unavailable INC[facility]PORAT, [facility] RENUSCH, RENUSCH Unavailable Unavailable PETRONA, PETRONA Unavailable Unavailable SARAH, SARAH Unavailable Unavailable SOTINGEANU, Unavailable Unavailable SOTINGEANU Purpose Continuity of Care Document - 05-09-2014 through 2016 Problems Code Diagnosis DOS Provider Status N132 HYDRONEPHRO 09-04-2016 [facility]IS W/RENAL [facility] URE[facility]L [facility] CALCULOUS OBST N200 CALCULUS OF 09-04-2016 [facility], [facility] R1031 RIGHT LOWER 09-04-2016 [facility] R319 HEMATURIA 09-04-2016 [facility] UNSPECIFIED PHYSICIANS, [facility] [id number] PERSONAL 09-04-2016 [facility] HISTORY OF [facility] URINARY INC CALCULI R109 UNSPECIFIED 08-30-2016 [facility] ABDOMINAL [facility], PAIN PLLC N23 UNSPECIFIED 08-25-2016 [facility] RENAL [facility], COLIC PLLC R300 DYSURIA 07-17-2016 [facility] Z391 ENCNTR FOR 07-17-2016 [facility] CARE & HEALTH EXAMINATION MEDICAL LACTATING GROUP MOTHER Z392 ENCOUNTER 07-17-2016 [facility] FOR ROUTINE HEALTH MEDICAL FOLLOW-UP GROUP O133 GESTATIONAL 06-25-2016 [facility] HTN W/O ANESTHESIA SIG PSC PROTEINURIA THIRD TRI O80 ENCOUNTER 06-25-2016 [facility] FOR ANESTHESIA FULL-TERM PSC UNCOMPLICAT ED DELIVERY Z370 SINGLE LIVE 06-25-2016 [facility] O134 GESTATIONAL 06-24-2016 [facility] HTN W/O [facility] PROTEINURIA COMP CB [id number] MAT CARE 06-24-2016 [facility] KNWN/SUSP MEDICAL POOR FTL GROUP GRTH 3RD TRI UNS O665 ATTEMPTED 06-24-2016 [facility] APPLICATION [facility] VACUUM MEDICAL EXTRACTOR & GROUP FORCEPS [id number] L & D COMP 06-24-2016 [facility] CORD AROUND HEALTH NECK W/O [place] COMPRS NA/UNS Z2913 ENCOUNTER 06-24-2016 [facility] FOR HEALTH PROPHYLACTI [facility] C RHO IMMUNE GLOBULIN Z3A36 36 WEEKS 06-24-2016 [facility] GESTATION [facility] OF MEDICAL GROUP O163 UNSPECIFIED 06-20-2016 [facility] MATERNAL HEALTH HYPERTENSIO [facility] N 3RD TRIMESTER V60316 OTHER SPEC 06-20-2016 [facility] HEALTH RELATED MEDICAL COND 3RD GROUP TRIMESTER O288 OTH 06-20-2016 [facility] ABNORMAL HEALTH FIND ON [place] SCREENING MOTHER [id number] MATERNAL 06-20-2016 [facility] CARE OT HEALTH SPEC MEDICAL PROB 3RD GROUP TRI NA/UNS Z3A35 35 WEEKS 06-17-2016 [facility] O289 UNS 06-13-2016 [facility] ABNORMAL HEALTH FIND ON [place] SCREENING MOTHER [id number] OLIGOHYDRAM 06-13-2016 [facility] NIOS THIRD HEALTH TRIMESTER MEDICAL NA/UNS GROUP E669 OBESITY 06-10-2016 [facility] UNSPECIFIED HEALTH MEDICAL GROUP Z3A34 34 WEEKS 06-10-2016 [facility] Z3A33 33 WEEKS 06-03-2016 [facility] O210 MILD 05-28-2016 [facility] HYPEREMESIS [facility] Z418 ENC OTH 05-28-2016 [facility] PROC HEALTH PURPOSES MEDICAL OTH THAN GROUP REMEDY HL STATE N1330 UNSPECIFIED 05-25-2016 [facility] HYDRONEPHRO IMAGING ASS SIS O4443 LOW LYING 05-25-2016 [facility] NOS/WO [facility]ING ASS HEMORRHAGE 3RD TRIM O4703 FALSE LABOR 05-25-2016 [facility] BEFORE 37 [facility] CMPLETE INC WEEKS GEST 3RD TRI Z331 05-25-2016 [facility] INCIDENTAL IMAGING ASS Z3A32 32 WEEKS 05-25-2016 [facility] GESTATION [facility] OF INC [id number] 05-16-2016 [facility] RELATED PHYSICIANS, RENAL PLLC DISEASE THIRD TRIMESTER [id number] STRAIN 05-16-2016 [facility] MUSCLE FASC [facility] TENDON INC NECK LEVL INIT ENC V66509P STRAIN 05-16-2016 [facility] MUSCLE [facility] FASCIA & INC TENDON LOW BACK INITIAL [id number] UNSPECIFIED 05-16-2016 [facility] SPRAIN OF [facility] LEFT HIP INC INITIAL ENCOUNTER Z3480 ENC 05-15-2016 [facility] SUPERVISION PHYSICIANS OTH NORMAL GROUP PREG UNS TRIMESTER Z3A30 30 WEEKS 05-09-2016 [facility] GESTATION [facility] OF INC O9989 OT DZ & 05-08-2016 [facility] COND COMP PHYSICIANS, PREG PLLC CHILDBIRTH PUERPERIUM Z3483 ENC 05-08-2016 [facility] SUPERVISION [facility] OTH NORMAL INC 3 TRIMESTER Z3A31 31 WEEKS 05-08-2016 [facility] GESTATION PHYSICIANS, OF PLLC Q29206 OTHER SPEC 03-31-2016 [facility] RELATED INC COND 2ND TRIMESTER Z3A26 26 WEEKS 03-31-2016 [facility] GESTATION [facility] OF INC [id number] MAT CARE 03-24-2016 [facility] OT HEALTH KNWN/SUSP MEDICAL POOR FTL GROUP GRTH 2ND TRI UNS Z3492 ENC 03-24-2016 [facility] SUPERVISION HEALTH NORMAL [place] UNS 2 TRIMESTER Z3A23 23 WEEKS 03-24-2016 [facility] MEDICAL GROUP E42168 SUPERVISION 03-21-2016 [facility] OTH HIGH PHYSICIANS RISK PREG GROUP SECOND TRIMESTER Z3A21 21 WEEKS 03-21-2016 [facility] GESTATION PHYSICIANS OF GROUP O2692 03-20-2016 [facility] RELATED PHYSICIANS, CONDITIONS PLLC UNS 2ND TRIMESTER Z3A24 24 WEEKS 03-20-2016 [facility] GESTATION [facility] Z3201 ENCOUNTER 03-05-2016 [facility] FOR PH[facility]ANS GROUP TEST RESULT POSITIVE 64459 ABDOMINAL 07-05-2014 [facility] OTHER REGIONAL SPECIFIED MEDICAL C SITE 28383 ABDOMINAL 05-09-2014 [facility] UNSPECIFIED PLLC SITE Medications Na ND Rx Da Fi Fi Am Da Di Ph RX Ph St me C No te ll ll ou ys ag ar # ys at rm s nt no ma ic us Or Da si cy ia de te s n re d CL 16 05 06 90 30 00 RI Ac ON 72 -1 -1 .0 00 TE ti AZ 90 8- 6- 00 01 ve EP 13 20 20 18 AI AM 70 17 17 41 D 1 0 00 PH AR MG MA CY TA BL #3 ET 93 8 NO 68 05 06 21 28 00 RI Ac RE 46 -2 -1 .0 00 TE ti TH 20 0- 6- 00 01 ve IN 13 20 20 17 AI D- 28 17 17 67 D ET 1 70 PH H AR ES MA TR CY AD #3 1- 93 0. 8 02 MG ZO 13 05 06 30 30 00 RI Ac LP 66 -1 -1 .0 00 TE ti ID 80 8- 6- 00 01 ve EM 00 20 20 18 AI 80 17 17 40 D TA 1 99 PH RT AR RA MA TE CY 10 #3 93 MG 8 TA BL ET SE 69 05 06 75 30 00 RI Ac RT 09 -1 -0 .0 00 TE ti RA 70 6- 9- 00 01 ve LI 83 20 20 18 AI NE 50 17 17 40 D 2 93 PH HC AR L MA 10 CY 0 MG #3 93 TA 8 BL ET BU 45 05 06 30 30 00 RI Ac AR 96 -0 -0 .0 00 TE ti OP 30 5- 2- 00 01 ve IO 14 20 20 18 AI N 23 17 17 03 D HC 0 74 PH L AR XL MA CY 30 0 #3 MG 93 8 TA BL ET HY 00 05 06 [address] 40 -0 -0 .0 00 TE ti OC 60 5- 2- 00 01 ve OD 12 20 20 18 AI ON 50 17 17 28 D -A 1 23 PH CE AR TA MA WA CY NO PH #3 N 93 10 8 -3 25 NO 68 04 05 21 28 00 RI Ac RE 46 -2 -1 .0 00 TE ti TH 20 1- 9- 00 01 ve IN 13 20 20 17 AI D- 28 17 17 67 D ET 1 70 PH H AR ES MA TR CY AD #3 1- 93 0. 8 02 MG CI 00 04 05 14 7 00 RI Ac AR 14 -2 -1 .0 00 TE ti OF 39 4- 9- 00 01 ve LO 92 20 20 18 AI XA 80 17 17 11 D CI 1 12 PH N AR HC MA L CY 50 0 #3 MG 93 8 TA B OL 00 04 05 30 30 00 RI Ac AN 09 -2 -1 .0 00 TE ti ZA 35 5- 9- 00 01 ve PI 76 20 20 18 AI NE 85 17 17 03 D 5 6 76 PH AR MG MA CY TA BL #3 ET 93 8 ZO 13 04 05 23 23 00 RI Ac LP 66 -1 -1 .0 00 TE ti ID 80 8- 2- 00 01 ve EM 00 20 20 18 AI 80 17 17 03 D TA 1 85 PH RT AR RA MA TE CY 10 #3 93 MG 8 TA BL ET CL 16 04 05 90 30 00 RI Ac ON 72 -1 -1 .0 00 TE ti AZ 90 8- 2- 00 01 ve EP 13 20 20 18 AI AM 70 17 17 03 D 1 0 86 PH AR MG MA CY TA BL #3 ET 93 8 SH 16 04 05 28 28 00 RI Ac AR 71 -1 -0 .0 00 TE ti OB 40 1- 5- 00 01 ve EL 44 20 20 17 AI 10 17 17 56 D 0. 4 04 PH 35 AR MA MG CY TA #3 BL 93 ET 8 SE 69 04 05 75 30 00 RI Ac RT 09 -0 -0 .0 00 TE ti RA 70 7- 5- 00 00 ve LI 83 20 20 81 AI NE 50 17 17 77 D 2 32 PH HC AR L MA 10 CY 0 MG #1 60 TA 7 BL ET OL 60 04 05 21 21 00 RI Ac AN 50 -0 -0 .0 00 TE ti ZA 53 9- 5- 00 01 ve PI 11 20 20 48 AI NE 10 17 17 67 D 5 3 20 PH AR MG MA CY TA BL #3 ET 95 4 ZO 13 04 04 7. 7 00 RI Ac LP 66 -0 -2 00 00 TE ti ID 80 2- 8- 0 01 ve EM 00 20 20 17 AI 80 17 17 61 D TA 1 40 PH RT AR RA MA TE CY 10 #3 93 MG 8 TA BL ET BU 10 03 04 30 30 00 RI Ac AR 37 -3 -2 .0 00 TE ti [...] 02 03 30 30 00 RI Ac AR 37 -1 -1 .0 00 TE ti [...] CY TA BL #1 ET 60 7 AR 00 01 02 30 7 00 RI [...] 1 60 PH CE AR TA MA WA CY NO PH #5 91 7. 5- 32 5 Procedures Procedure [place] [address] [facility] AMYLASE [facility] INC INC COMPREHEN 85499 [facility] SIVE [facility] METABOLIC INC INC PANEL URINE 43297 [facility]UU 7 [facility] TEST INC [place] [address] [facility] ABDOMEN & 7 [facility] PELVIS INC [place] W/[place] [address] [facility] LIPASE 7 [facility] INC INC THER 06296 [facility] PROPH/DX 7 [facility] NJX EA INC INC SEQL IV PUSH SBST/DRUG FAC UNCLASSIF J3490 [facility] IED DRUGS 7 [facility] INC INC BLOOD 37080 [facility] COUNT 7 [facility] COMPLETE INC INC AUTO&AUTO DIFRNTL WBC URNLS DIP 01250 [facility] 7 [facility] STICK/TAB INC [place] [address] [facility] INFUSION 7 [facility] THERAPY/P INC INC ROPHYLAXI S /DX 1ST TO 1 HR THERAPEUT 65650 [facility] IC 7 [facility] INJECTION INC INC IV PUSH EACH NEW DRUG DRUG TEST 60172 [facility] PRSMV 7 [facility] QUAL DIR INC INC OPTICAL OBS PER DAY THERAPEUT 40967 [facility] IC 7 [facility] PROPHYLAC INC INC TIC/DX INJECTION SUBQ/IM BLOOD 64903 [facility] COUNT 7 [facility] COMPLETE INC INC AUTO&AUTO DIFRNTL WBC UNCLASSIF J3490 [facility] IED DRUGS 7 [facility] INC INC RADEX 03805 [facility] ABDOMEN 1 7 [facility] INC INC ANTEROPOS TERIOR VIEW URINE 65609 [facility]UU 7 [facility] TEST INC INC VISUAL COLOR CMPRSN METHS COMPREHEN 93422 [facility] SIVE 7 [facility] METABOLIC INC INC PANEL CULTURE 36964 [facility] SMITH BACTERIAL 7 [facility] INC QUANTTATI VE COLONY COUNT URINE CULTURE 94154 [facility] BCT 7 [facility] ISOL&PRSM INC INC PTV ID ISOLATE EA URINE URINE 88876 [facility]UU 7 [facility] TEST INC [place] [address] [facility] ABDOMEN & 7 [facility] PELVIS INC INC W/O CONTRAST MATERIAL THER 56785 [facility] PROPH/DX 7 [facility] NJX EA INC INC SEQL IV PUSH SBST/DRUG FAC SUSCEPTIB 37049 [facility] LTY STDY 7 [facility] ANTIMICRB INC INC IAL MICRO/AGA R DILUTJ BLOOD 24555 [facility] COUNT 7 [facility] COMPLETE INC INC AUTO&AUTO DIFRNTL WBC UNCLASSIF J3490 [facility] IED DRUGS 7 [facility] INC INC URNLS DIP 01311 [facility] MALIA 7 [facility] STICK/TAB INC LET REAGENT AUTO MICROSCOP Y THERAPEUT 88558 [facility] IC 7 [facility] INJECTION INC INC IV PUSH EACH NEW DRUG COMPREHEN 17581 [facility] SIVE 7 [facility] [place] [address] [facility] INFUSION 7 [facility] THERAPY/P INC INC ROPHYLAXI S /DX 1ST TO 1 HR URNLS DIP 53369 [facility] HINDUISM 7 [facility] STICK/TAB [facility] LET REAGENT AUTO MICROSCOP Y SUSCEPTIB 25995 HINDUISM HINDUISM LTY STDY 7 [facility] ANTIMICRB [facility] IAL MICRO/AGA R DILUTJ POSTPARTU 73580 [facility]ISM BOWMAN M CARE 7 [facility] MEDICAL SEPARATE GROUP PROCEDURE CULTURE 92915 HINDUISM HINDUISM TYPING 7 [facility] IMMUNOLOG [facility] IC OTH/THN IMMUNOFLU ORES CULTURE 52362 HINDUISM HINDUISM BACTERIAL 7 [facility] QUANTTATI VE COLONY COUNT URINE CUL BACT 58940 HINDUISM HINDUISM AEROBIC 7 [facility] ADDL [facility] METHS DEFINITIV E EA ISOL BREAST E0603 [facility] PUMP 7 [facility]COUNT [facility] Integrated Pathology ANY TYPE INC. INC. [facility] 35183 HINDUISM BOWMAN DISCHARGE 7 HEALTH DAY MEDICAL MANAGEMEN GROUP T 30 MIN/< SBSQ 29211 [place] [address] HEALTH CARE/DAY MEDICAL 15 GROUP MINUTES NEURAXIAL 84928 H[facility]ISM [place] LABOR 7 ANESTHESI ANALG/ANE A PSC S PLND VAGINAL DELIVERY VAGINAL 50600 [facility] SATSUMA DELIVERY 7 HEALTH ONLY MEDICAL GROUP US PREG 88025 H[facility]UISM CARUSO UTERUS 7 HEALTH REAL TIME MEDICAL F/U GROUP TRNSABDL PER FETUS 24803 [facility] CARUSO BIOPHYSIC 7 HEALTH AL MEDICAL PROFILE GROUP W/O NON-STRES S TESTING DOPPLER 49569 [facility] CARUSO VELOCIMET 7 HEALTH RY MEDICAL UMBILICAL GROUP ARTERY INITIAL 82945 [place] [address] HEALTH CARE/DAY MEDICAL 30 GROUP MINUTES 90857 HINDUISM HINDUISM NONSTRESS 7 HEALTH HEALTH TEST [facility] 30760 HINDUISM BOWMAN NONSTRESS 7 HEALTH TEST MEDICAL GROUP 76883 HINDUISM HINDUISM NONSTRESS 7 HEALTH HEALTH TEST [facility] 40553 HINDUISM DANIELLE BIOPHYSIC 7 HEALTH AL MEDICAL PROFILE GROUP NON-STRES S TESTING [facility] G0378 HINDUISM HINDUISM OBSERVATI 7 HEALTH HEALTH ON [facility] SERVICE PER HOUR 45639 [facility]ISM DANIELLE BIOPHYSIC 7 HEALTH AL MEDICAL PROFILE GROUP NON-STRES S TESTING CUL 92431 H[facility]ISM HINDUISM PRSMPTV 7 HEALTH HEALTH PTHGNC [facility] ORGANISM SCRN W/COLONY ESTIMJ IAADIADOO 40283 HINDUISM HINDUISM 7 HEALTH HEALTH STREPTOCO [facility] CCUS GROUP A 83730 HINDUISM BOWMAN NONSTRESS 7 HEALTH TEST MEDICAL GROUP THER 60801 HINDUISM HINDUISM PROPH/DX 7 HEALTH HEALTH NJX EA [facility] SEQL IV PUSH SBST/DRUG FAC INJECTION J1170 HINDUISM HINDUISM 7 HEALTH HEALTH HYDROMORP [facility] PHIL UP TO 4 MG DRUG TEST 33747 HINDUISM HINDUISM PRSMV 7 HEALTH HEALTH QUAL [facility] INSTRMNT OPTCL OBS PER DAY INJ J0702 HINDUISM HINDUISM BETAMETHA 7 HEALTH HEALTH SONE [facility] ACETATE & PHOSPHATE 3 MG OBSERVATI 37846 HINDUISM BOWMAN ON CARE 7 HEALTH DISCHARGE MEDICAL [place]EM[place] T [address]23 HINDUISM HINDUISM BIOPHYSIC 7 HEALTH HEALTH AL [facility] PROFILE W/O NON-STRES S TESTING CALCULUS 18855 H[facility]ISM HINDUISM QUANTITAT 7 HEALTH HEALTH SUZAN [facility] CHEMICAL US PREG 07715 HINDUISM HINDUISM UTERUS 7 HEALTH HEALTH REAL TIME [facility] F/U TRNSABDL PER FETUS THERAPEUT 30707 HINDUISM HINDUISM IC 7 HEALTH HEALTH PROPHYLAC [facility] TIC/DX INJECTION SUBQ/IM INJECTION J2550 HINDUISM HINDUISM 7 HEALTH HEALTH PROMETHAZ [facility] INE HCL UP TO 50 MG INJECTION J2405 HINDUISM HINDUISM 7 HEALTH HEALTH ONDANSETR [facility] ON HCL PER 1 MG INJECTION J2550 HINDUISM HINDUISM 7 HEALTH HEALTH PROMETHAZ [facility] INE HCL UP TO 50 MG THERAPEUT 73018 HINDUISM HINDUISM IC 7 HEALTH HEALTH INJECTION [facility] IV PUSH EACH NEW DRUG THER 54276 HINDUISM HINDUISM PROPH/DX 7 HEALTH HEALTH NJX IV [facility] PUSH SINGLE/1S T SBST/DRUG 73050 HINDUISM HINDUISM NONSTRESS 7 HEALTH HEALTH TEST [facility] URNLS DIP 85235 HINDUISM LAB INDER 7 HEALTH FADI STICK/TAB [place] [facility]AGENT AUTO [facility] G0378 HINDUISM HINDUISM OBSERVATI 7 HEALTH HEALTH ON [facility] SERVICE PER HOUR COMPREHEN 07690 HINDUISM QUEST SIVE 7 [facility] DIAGNOSTI METABOLIC [place] CS PANEL INCORPORA T INJ J0702 HINDUISM HINDUISM BETAMETHA 7 [facility] SONE [facility] ACETATE & PHOSPHATE 3 MG INJECTION J1170 HINDUISM HINDUISM 7 [facility] HYDROMORP [facility] PHIL UP TO 4 MG THER 04227 HINDUISM HINDUISM PROPH/DX 7 [facility] NJX EA [facility] SEQL IV PUSH SBST/DRUG FAC INJECTION J2790 HINDUISM BOWMAN RHO D IG 7 [facility] HUMAN MEDICAL FULL DOSE GROUP 300 MCG THERAPEUT 45181 HINDUISM BOWMAN IC 7 [facility] PROPHYLAC MEDICAL TIC/DX GROUP INJECTION SUBQ/IM URNLS DIP 38951 [facility] LUU 7 [facility] STICK/TAB INC [place] [address] [facility] INFUSION 7 [facility] THERAPY/P INC INC ROPHYLAXI S /DX 1ST TO 1 HR UNCLASSIF J3490 [facility] IED DRUGS 7 [place] [address] [facility] RETROPERI 7 [facility] TONEAL INC [place] [address] [place] RETROPERI 7 MEDICAL TONEAL IMAGING REAL TIME ASS W/IMAGE LIMITED DOPPLER 48969 [facility] GREGG VELOCIMET 7 [facility] RY INC UMBILICAL ARTERY COMPREHEN 10663 [facility] SIVE 7 [facility] [place] [address] [facility] LUU 7 [facility] UTERUS INC INC LIMITED 1/> FETUSES 04839 [facility] BIOPHYSIC 7 [facility] AL INC INC PROFILE W/O NON-STRES S TESTING ANTIBODY 47969 [facility] SCREEN 7 [facility] RBC EACH INC INC SERUM TECHNIQUE CALCULUS 72140 [facility] XRAY 7 [facility] DIFFRACTI INC INC ON THER 80127 [facility] PROPH/DX 7 [facility] NJX EA INC INC SEQL [place] P[place] SBST/[place] [address] [facility] INFUSION 7 [facility] THERAPY/P INC INC ROPHYLAXI S /DX 1ST TO 1 HR THERAPEUT 25339 [facility] IC 7 [facility] INJECTION INC INC IV PUSH EACH NEW DRUG URNLS DIP 39336 [facility]UU 7 [facility] STICK/TAB INC INC LET REAGENT AUTO MICROSCOP Y THERAPEUT 85649 [facility] IC 7 [facility] PROPHYLAC INC INC TIC/DX INJECTION SUBQ/IM CULTURE 56410 [facility] BACTERIAL 7 [facility] INC INC QUANTTAT[place] [address] [facility] UREA 7 [facility] NITROGEN INC INC QUANTITAT SUZAN UNCLASSIF J3490 [facility] IED DRUGS 7 [facility] INC INC CREATININ 24771 [facility] E BLOOD 7 [facility] INC INC 28645 [facility] DANII NONSTRESS 7 PHYSICIAN TEST S GROUP THER 48310 [facility] PROPH/DX 7 [facility] NJX IV INC INC PUSH SINGLE/1S T SBST/DRUG URNLS DIP 03744 [facility]UU 7 [facility] STICK/TAB INC INC LET REAGENT AUTO MICROSCOP Y THERAPEUT 54337 [facility] IC 7 [facility] INJECTION INC INC IV PUSH EACH NEW DRUG COLLECTIO 30304 [facility] N VENOUS 7 [facility] BLOOD INC INC VENIPUNCT URE THERAPEUT 13898 [facility] IC 7 [facility] PROPHYLAC INC INC TIC/DX INJECTION SUBQ/IM UNCLASSIF J3490 [facility] IED DRUGS 7 [facility] INC INC OBSERVATI 84887 [facility] DANII ON CARE 6 PHYSICIAN DISCHARGE S GROUP MANAGEMEN T INITIAL 33863 [facility] DANII OBSERVATI 6 PHYSICIAN ON S GROUP CARE/DAY 50 MINUTES US PREG 82773 HINDUISM HINDUISM UTERUS [address] [place] [address] W/DETAIL [facility] JULIÁN 1ST GESTATION OBSERVATI 86828 [facility] DANII ON CARE 6 PHYSICIAN DISCHARGE S [facility] G0378 [facility] OBSERVATI 6 [facility] ON INC INC SERVICE [facility] G0378 [facility] OBSERVATI 6 [facility] ON INC INC SERVICE PER HOUR DRUG TST G0477 BE[facility] PRESUMP;C 6 [facility] PBL BEING INC INC READ DC OPT OBV ONLY INITIAL 90404 [facility] DANII OBSERVATI 6 PHYSICIAN ON S GROUP CARE/DAY 30 MINUTES THERAPEUT 81341 [facility] IC 6 [facility] PROPHYLAC INC INC TIC/DX INJECTION SUBQ/IM URNLS DIP 99515 [facility] 6 [facility] STICK/TAB INC INC LET REAGENT AUTO MICROSCOP Y DRUG TST G0477 [facility] DANII PRESUMP;C 6 PHYSICIAN PBL BEING S GROUP READ DC [place] [address] [facility] OFFICE 5 REGIONAL REG MEDICAL SCHEDD C EVN WKEND/HOL IDAY HRS IAADIADOO 44224 [facility] 5 REGIONAL INFLUENZA MEDICAL C URINE 28331 [facility] 5 REGIONAL TEST MEDICAL VISUAL C COLOR CMPRSN METHS IAADIADOO 20189 [facility] 5 REGIONAL STREPTOCO MEDICAL CCUS C GROUP A URNLS DIP 40273 [facility] 5 REGIONAL STICK/TAB MEDICAL LET RGNT C NON-[place] W/[place] [address] [facility]ENNETT[facility] ABDOMEN & 5 [facility] W/O PLLC CONTRAST MATERIAL Encounters Encounter Start End Date Code Location Performer Type Date EMERGENCY 82358 [facility] HENNING DEPT 7 7 PHYSICIAN U VISIT S, PLLC HIGH SEVERITY& [facility] OUTPATIEN INC T EMERGENCY 37983 [facility] 7 7 [facility] DEPARTMEN INC T VISIT HIGH/URGE NT SEVERITY EMERGENCY 29250 BRENDEN BOYD 7 7 PHYSICIAN DEPARTMEN S, [facility] T VISIT HIGH/URGE NT SEVERITY HOSPITAL BE[facility] - 7 7 [facility] OUTPATIEN INC T EMERGENCY 68536 [facility] PEREZ 7 7 [facility] III DEPARTMEN INC T VISIT MODERATE SEVERITY HOSPITAL BELL - 7 7 [facility] OUTPATIEN INC T EMERGENCY 42246 BELL 7 7 [facility] DEPARTMEN INC T VISIT HIGH/URGE NT SEVERITY EMERGENCY 97944 BRENDEN EDDY DEPT 7 7 PHYSICIAN VISIT S, [facility] HIGH SEVERITY& THREAT [facility] HINDUISM - 7 7 HEALTH OUTPATIEN [facility] HINDUISM - 7 7 HEALTH INPATIENT [facility] HINDUISM - 7 7 HEALTH OUTPATIEN [facility] OFFICE 55906 HINDUISM [facility] OUTPATIEN 7 7 HEALTH T VISIT MEDICAL 15 [facility] OFFICE 26377 HINDUISM [facility] OUTPATIEN 7 7 HEALTH T VISIT MEDICAL 15 [facility] OFFICE 67281 HINDUISM DANIELLE OUTPATIEN 7 7 HEALTH T VISIT MEDICAL 15 [facility] HINDUISM - 7 7 HEALTH OUTPATIEN [facility] OFFICE 31312 HINDUISM DANIELLE OUTPATIEN 7 7 HEALTH T VISIT MEDICAL 15 [facility] HINDUISM - 7 7 HEALTH OUTPATIEN [facility] OFFICE 56782 HINDUISM [facility] OUTPATIEN 7 7 HEALTH T VISIT MEDICAL 15 [facility] HINDUISM - 7 7 HEALTH OUTPATIEN [facility] OFFICE 34493 HINDUISM [facility] OUTPATIEN 7 7 HEALTH T VISIT MEDICAL 15 GROUP MINUTES OFFICE 83963 HINDUISM [facility] OUTPATIEN 7 7 HEALTH T NEW 45 MEDICAL MINUTES [facility] BELL - 7 7 [facility] OUTPATIEN [facility] BELL - 7 7 [facility]PATIEN [facility] EMERGENCY 86843 BRENDEN EDDY DEPT 7 7 PHYSICIAN VISIT S, [facility] HIGH SEVERITY& THREAT [facility] EMERGENCY 86399 BE[facility] 7 7 [facility] DEPARTMEN INC T VISIT MODERATE SEVERITY OFFICE 61689 [facility] 7 7 PHYSICIAN T VISIT S GROUP 15 MINUTES HOSPITAL BELL - 7 7 [facility]IEN [facility] EMERGENCY 32706 BELL 7 7 [facility] DEPARTMEN [facility] T VISIT MODERATE SEVERITY EMERGENCY 90603 BRENDEN MOJICA DEPT 7 7 PHYSICIAN VISIT S, [facility] HIGH SEVERITY& THREAT [facility] 61239 BRENDEN HENNING 7 7 PHYSICIAN U DEPARTMEN S, [facility] T VISIT HIGH/URGE NT SEVERITY EMERGENCY 99974 BELL 7 7 [facility] DEPARTMEN [facility] T VISIT LOW/MODER SEVERITY HOSPITAL BELL - 7 7 [facility] OUTPATIEN [facility] HOSPITAL BELL - 6 6 [facility] INPATIENT [facility] HINDUISM - 6 6 HEALTH OUTPATIEN [place] T OFFICE 64158 URSULA WONG CONSULTAT 6 6 HEALTH ION MEDICAL NEW/ESTAB GROUP PATIENT 15 MIN HOSPITAL BELL - 6 6 [facility] OUTPATIEN [facility]PITAL BELL - 6 6 [facility] OUTPATIEN [facility] EMERGENCY 99988 BRENDEN EDDY 6 6 PHYSICIAN DEPARTMEN S, PLLC T VISIT MODERATE SEVERITY EMERGENCY 06807 BELL 6 6 [facility] DEPARTMEN INC T VISIT LOW/MODER SEVERITY OFFICE 69942 [facility] DANII OUTPATIEN 6 6 PHYSICIAN T NEW 45 S GROUP MINUTES OFFICE 26346 [facility] MARICEL OUTPATIEN 5 5 REGIONAL T VISIT MEDICAL 15 C MINUTES
--- OUTSIDE RECORDS SUMMARY | 2016-11-05 16:10 | External Medical Summary Rpt ---
Author Author , Organization [employer] Address Unknown Phone Unavailable Care Team Providers Care Web Content Coordinator Name Role Phone [facility] Unavailable Unavailable [facility], [facility] Unavailable Unavailable [place], [facility] Unavailable Unavailable MEDICAL GROUP, [facility] [...] HEMMER Unavailable Unavailable HIETT, HIETT Unavailable Unavailable [facility] Unavailable Unavailable MEDICAL C, [facility] MEDICAL C [facility], Unavailable Unavailable [facility] MOJICA, MOJICA Unavailable Unavailable [facility] Un[facility], [facility] Unavailable Unavailable [facility], [facility] MALIA, MALIA Unavailable Unavailable BOWMAN, BOWMAN Unavailable Unavailable [facility], Unavailable Unavailable JESUS, [facility], [facility] Unavailable Unavailable PLLC, [facility] ZULEMA KELVIN, ZULEMA Unavailable Unavailable KELVIN QUEST [...] N200 CALCULUS OF 09-04-2016 [facility] KIDNEY PHYSICIANS, [facility] R1031 RIGHT LOWER 09-04-2016 [facility] R319 HEMATURIA 09-04-2016 BRENDEN UNSPECIFIED PHYSICIANS, [facility] [id number] PERSONAL 09-04-2016 [facility] HISTORY OF [facility] URINARY INC CALCULI R109 UNSPECIFIED 08-30-2016 [facility] ABDOMINAL PHYSICIANS, PAIN PLLC N23 UNSPECIFIED 08-25-2016 [facility] RENAL PHYSICIANS, COLIC PLLC R300 DYSURIA 07-17-2016 [facility] Z391 ENCNTR FOR 07-17-2016 [facility] CARE & HEALTH EXAMINATION MEDICAL LACTATING GROUP MOTHER Z392 ENCOUNTER 07-17-2016 [facility] FOR ROUTINE HEALTH MEDICAL FOLLOW-UP GROUP O133 GESTATIONAL 06-25-2016 [facility] HTN W/O ANESTHESIA SIG PSC PROTEINURIA THIRD TRI O80 ENCOUNTER 06-25-2016 [facility] FOR ANESTHESIA FULL-TERM PSC UNCOMPLICAT ED DELIVERY Z370 SINGLE LIVE 06-25-2016 [facility] ANESTHESIA [facility] O134 GESTATIONAL 06-24-2016 [facility] HTN W/O [facility] PROTEINURIA COMP CB [id number] MAT CARE 06-24-2016 [facility] KNWN/SUSP MEDICAL POOR FTL GROUP GRTH 3RD TRI UNS O665 ATTEMPTED 06-24-2016 [facility] APPLICATION [facility] VACUUM MEDICAL EXTRACTOR & GROUP FORCEPS [id number] L & D COMP 06-24-2016 [facility] CORD AROUND HEALTH NECK W/O [place] COMPRS NA/UNS Z2913 ENCOUNTER 06-24-2016 [facility] FOR [facility]ALTH [facility]HYLACTI [facility] C RHO IMMUNE GLOBULIN Z3A36 36 WEEKS 06-24-2016 [facility] MEDICAL GROUP O163 UNSPECIFIED 06-20-2016 [facility] MATERNAL HEALTH HYPERTENSIO [facility] N 3RD TRIMESTER U31972 OTHER SPEC 06-20-2016 [facility] HEALTH RELATED MEDICAL COND 3RD GROUP TRIMESTER O288 OTH 06-20-2016 [facility] ABNORMAL HEALTH FIND ON [place] SCREENING MOTHER [id number] MATERNAL 06-20-2016 [facility] CARE OT HEALTH SPEC MEDICAL PROB 3RD GROUP TRI NA/UNS Z3A35 35 WEEKS 06-17-2016 [facility] O289 UNS 06-13-2016 [facility] ABNORMAL HEALTH FIND ON [place] SCREENING MOTHER [id number] OLIGOHYDRAM 06-13-2016 [facility] NIOS THIRD HEALTH TRIMESTER MEDICAL NA/UNS GROUP E669 OBESITY 06-10-2016 [facility] UNSPECIFIED HEALTH MEDICAL GROUP Z3A34 34 WEEKS 06-10-2016 [facility] Z3A33 33 WEEKS 06-03-2016 [facility] O210 MILD 05-28-2016 [facility] HYPEREMESIS [facility]ALTH [facility] Z418 ENC OTH 05-28-2016 [facility] PROC HEALTH PURPOSES MEDICAL OTH THAN GROUP REMEDY HL STATE N1330 UNSPECIFIED 05-25-2016 [facility] HYDRONEPHRO IMAGING ASS SIS O4443 LOW LYING 05-25-2016 [facility] NOS/WO IMAGING ASS HEMORRHAGE 3RD TRIM O4703 FALSE LABOR 05-25-2016 BE[facility] BEFORE 37 [facility] CMPLETE INC WEEKS GEST 3RD TRI Z331 05-25-2016 [facility] INCIDENTAL IMAGING ASS Z3A32 32 WEEKS 05-25-2016 [facility] GESTATION [facility] OF INC [id number] 05-16-2016 BRENDEN RELATED PHYSICIANS, RENAL PLLC DISEASE THIRD TRIMESTER A563UPM STRAIN 05-16-2016 [facility] MUSCLE [facility]ASC [facility] & TENDON INC NECK LEVL INIT ENC [id number] STRAIN 05-16-2016 [facility] MUSCLE [facility] FASCIA & INC TENDON LOW BACK INITIAL [id number] UNSPECIFIED 05-16-2016 [facility] SPRAIN OF [facility] LEFT HIP INC INITIAL ENCOUNTER Z3480 ENC 05-15-2016 [facility] SUPERVISION PHYSICIANS OTH NORMAL GROUP PREG UNS TRIMESTER Z3A30 30 WEEKS 05-09-2016 [facility] GESTATION [facility] OF INC O9989 OT DZ & 05-08-2016 BRENDEN COND COMP PHYSICIANS, PREG PLLC CHILDBIRTH PUERPERIUM Z3483 ENC 05-08-2016 [facility] SUPERVISION [facility] OTH NORMAL INC 3 TRIMESTER Z3A31 31 WEEKS 05-08-2016 BRENDEN GESTATION PHYSICIANS, OF PLLC V41687 OTHER SPEC 03-31-2016 [facility] RELATED INC COND 2ND TRIMESTER Z3A26 26 WEEKS 03-31-2016 [facility] GESTATION [facility] OF INC [id number] MAT CARE 03-24-2016 [facility] OT HEALTH KNWN/SUSP MEDICAL POOR FTL GROUP GRTH 2ND TRI UNS Z3492 ENC 03-24-2016 [facility] SUPERVISION HEALTH NORMAL [place] UNS 2 TRIMESTER Z3A23 23 WEEKS 03-24-2016 [facility] GROUP R98963 SUPERVISION 03-21-2016 [facility] OTH HIGH PHYSICIANS RISK PREG GROUP SECOND TRIMESTER Z3A21 21 WEEKS 03-21-2016 [facility] GESTATION PHYSICIANS OF GROUP O2692 03-20-2016 BRENDEN RELATED PHYSICIANS, CONDITIONS PLLC UNS 2ND TRIMESTER Z3A24 24 WEEKS 03-20-2016 BE[facility] GESTATION [facility] Z3201 ENCOUNTER 03-05-2016 [facility] FOR PHYSICIANS GROUP TEST RESULT POSITIVE 24438 ABDOMINAL 07-05-2014 [place] [facility] OTHER REGIONAL SPECIFIED MEDICAL C SITE 33771 ABDOMINAL 05-09-2014 [place] [facility] UNSPECIFIED PLLC [...] 05 06 30 30 00 RI Ac IN 96 -0 -0 .0 00 TE ti [...] 1 23 PH CE AR TA MA HI CY NO PH #3 N 93 10 [...] 04 05 14 7 00 RI Ac IN 14 -2 -1 .0 00 TE ti [...] 03 04 30 30 00 RI Ac IN 37 -3 -2 .0 00 TE ti [...] 02 03 30 30 00 RI Ac IN 37 -1 -1 .0 00 TE ti [...] CY TA BL #1 ET 60 7 IN 00 01 02 30 7 00 RI [...] [place] [address] BELL LUU AMYLASE 7 [facility] INC INC COMPREHEN 95976 BE[facility] LUU SIVE 7 [facility] METABOLIC INC INC PANEL URINE 09312 BELL LUU 7 [facility] TEST INC [place] [address] BELL LUU ABDOMEN & 7 [facility] PELVIS INC INC W/[place] [address] BELL LUU LIPASE 7 [facility] INC INC THER 88617 BELL LUU PROPH/DX 7 [facility] NJX EA INC INC SEQL IV PUSH SBST/DRUG FAC UNCLASSIF J3490 BELL LUU IED DRUGS 7 [facility] INC INC BLOOD 08577 BELL LUU COUNT 7 [facility] COMPLETE INC INC AUTO&AUTO DIFRNTL WBC URNLS DIP 25575 BELL LUU 7 [facility] STICK/TAB INC [place] [address] BE[facility] LUU INFUSION 7 [facility] THERAPY/P INC INC ROPHYLAXI S /DX 1ST TO 1 HR THERAPEUT 28043 BELL LUU IC 7 [facility] INJECTION INC INC IV PUSH EACH NEW DRUG DRUG TEST 49198 BELL LUU PRSMV 7 [facility] QUAL DIR INC INC OPTICAL OBS PER DAY THERAPEUT 27388 BELL LUU IC 7 [facility] PROPHYLAC INC INC TIC/DX INJECTION SUBQ/IM BLOOD 88395 BELL LUU COUNT 7 [facility] COMPLETE INC INC AUTO&AUTO DIFRNTL WBC UNCLASSIF J3490 BELL LUU IED DRUGS 7 [facility] INC INC RADEX 93676 BELL LUU ABDOMEN 1 7 [facility] INC INC ANTEROPOS TERIOR VIEW URINE 74420 BELL LUU 7 [facility] TEST INC INC VISUAL COLOR CMPRSN METHS COMPREHEN 16753 BELL LUU SIVE 7 [facility] METABOLIC INC INC PANEL CULTURE 64057 BELL SMITH BACTERIAL 7 [facility] INC QUANTTATI VE COLONY COUNT URINE CULTURE 14692 BELL LUU BCT 7 [facility] ISOL&PRSM INC INC PTV ID ISOLATE EA URINE URINE 81282 BELL LUU 7 [facility] TEST INC [place] [address] BELL LUU ABDOMEN & 7 [facility] PELVIS INC INC W/O CONTRAST MATERIAL THER 89709 BELL LUU PROPH/DX 7 [facility] NJX EA INC INC SEQL IV PUSH SBST/DRUG FAC SUSCEPTIB 87882 BE[facility] LUU LTY STDY 7 [facility] ANTIMICRB INC INC IAL MICRO/AGA R DILUTJ BLOOD 63541 BELL LUU COUNT 7 [facility] COMPLETE INC INC AUTO&AUTO DIFRNTL WBC UNCLASSIF J3490 BELL LUU IED DRUGS 7 [facility] INC INC URNLS DIP 69705 BELL MALIA 7 [facility] STICK/TAB INC LET REAGENT AUTO MICROSCOP Y THERAPEUT 92535 BELL LUU IC 7 [facility] H[facility] INJECTION INC INC IV PUSH EACH NEW DRUG COMPREHEN 81755 BELL LUU SIVE 7 [facility] [place] [address] BELL LUU INFUSION 7 [facility] H[facility] THERAPY/P INC INC ROPHYLAXI S /DX 1ST TO 1 HR URNLS DIP 98723 [facility] CHEONDOISM 7 [facility] STICK/TAB [facility] LET REAGENT AUTO MICROSCOP Y SUSCEPTIB 72810 [facility]ISM CHEONDOISM LTY STDY 7 [facility] ANTIMICRB [facility] IAL MICRO/AGA R DILUTJ POSTPARTU 61424 [facility] BOWMAN M CARE 7 [facility] MEDICAL SEPARATE GROUP PROCEDURE CULTURE 95320 [facility] TYPING 7 [facility] IMMUNOLOG [facility] IC OTH/THN IMMUNOFLU ORES CULTURE 06662 [facility] BACTERIAL 7 [facility] QUANTTATI VE COLONY COUNT URINE CUL BACT 28093 [facility] AEROBIC 7 [facility] ADDL [facility] METHS DEFINITIV E EA ISOL BREAST E0603 GOULDS GOULDS PUMP 7 DISCOUNT DISCWote ANY TYPE INC. INC. [facility] 08150 [facility] BOWMAN DISCHARGE 7 HEALTH DAY MEDICAL MANAGEMEN GROUP T 30 MIN/< SBSQ 27691 [place] [address] HEALTH CARE/DAY MEDICAL 15 GROUP MINUTES NEURAXIAL 84860 [facility] [place] LABOR 7 ANESTHESI ANALG/ANE A PSC S PLND VAGINAL DELIVERY VAGINAL 48860 [facility] ASHBY DELIVERY 7 HEALTH ONLY MEDICAL GROUP US PREG 82687 [facility] CARUSO UTERUS 7 HEALTH REAL TIME MEDICAL F/U GROUP TRNSABDL PER FETUS 53199 [facility] CARUSO BIOPHYSIC 7 HEALTH AL MEDICAL PROFILE GROUP W/O NON-STRES S TESTING DOPPLER 12935 [facility] CARUSO VELOCIMET 7 HEALTH RY MEDICAL UMBILICAL GROUP ARTERY INITIAL 41912 [place] [address] HEALTH CARE/DAY MEDICAL 30 GROUP MINUTES 49483 [facility]ON[facility] NONSTRESS 7 HEALTH HEALTH TEST [facility] 96128 [facility] BOWMAN NONSTRESS 7 HEALTH TEST MEDICAL GROUP 08683 [facility]ON[facility] NONSTRESS 7 HEALTH HEALTH TEST [facility] 89472 [facility] DANIELLE BIOPHYSIC 7 HEALTH AL MEDICAL PROFILE GROUP NON-STRES S TESTING [facility] G0378 CHEONDOISM [facility]ISM OBSERVATI 7 HEALTH HEALTH ON [facility] SERVICE PER HOUR 28309 [facility] DANIELLE BIOPHYSIC 7 HEALTH AL MEDICAL PROFILE GROUP NON-STRES S TESTING CUL 45937 [facility] PRSMPTV 7 HEALTH HEALTH PTHGNC [facility] ORGANISM SCRN W/COLONY ESTIMJ IAADIADOO 37105 [facility] CHEONDOISM 7 HEALTH HEALTH STREPTOCO [facility] [place] [address] [facility]ON[facility] BOWMAN NONSTRESS 7 HEALTH TEST MEDICAL GROUP THER 01553 [facility]ISM [facility] PROPH/DX 7 HEALTH HEALTH NJX EA [facility] SEQL IV PUSH SBST/DRUG FAC INJECTION J1170 CHEONDOISM CHEONDOISM 7 HEALTH HEALTH HYDROMORP [facility] PHIL UP TO 4 MG DRUG TEST 20748 [facility] PRSMV 7 HEALTH HEALTH QUAL [facility] INSTRMNT OPTCL OBS PER DAY INJ J0702 CHEONDOISM CHEONDOISM BETAMETHA 7 HEALTH HEALTH SONE [facility] ACETATE & PHOSPHATE 3 MG OBSERVATI 54469 [facility] BOWMAN ON CARE 7 HEALTH DISCHARGE MEDICAL GROUP MANAGEMEN T 62124 CHEON[facility]ISM [facility] BIOPHYSIC 7 HEALTH HEALTH AL [facility] PROFILE W/O NON-STRES S TESTING CALCULUS 79556 [facility] QUANTITAT 7 HEALTH HEALTH SUZAN [facility] CHEMICAL US PREG 71289 [facility]ON[facility] UTERUS 7 HEALTH HEALTH REAL TIME [facility] F/U TRNSABDL PER FETUS THERAPEUT 97342 [facility]ISM [facility]ON[facility]ISM IC 7 HEALTH HEALTH PROPHYLAC [facility] TIC/DX INJECTION SUBQ/IM INJECTION J2550 CHEONDOISM CHEONDOISM 7 HEALTH HEALTH PROMETHAZ [facility] INE HCL UP TO 50 MG INJECTION J2405 [facility]ISM CHEONDOISM 7 HEALTH HEALTH ONDANSETR [facility] ON HCL PER 1 MG INJECTION J2550 [facility] CHEONDOISM 7 HEALTH HEALTH PROMETHAZ [facility] INE HCL UP TO 50 MG THERAPEUT 43576 [facility]ISM CHEONDOISM IC 7 HEALTH HEALTH INJECTION [facility] IV PUSH EACH NEW DRUG THER 21419 [facility] PROPH/DX 7 HEALTH HEALTH NJX IV [facility] PUSH SINGLE/1S T SBST/DRUG 09903 [facility] CHEON[facility]ISM NONSTRESS 7 HEALTH HEALTH TEST [facility] URNLS DIP 12568 [facility] LAB INDER 7 HEALTH FADI STICK/TAB [facility] LET REAGENT AUTO [facility]CROS[facility] G0378 CHEONDOISM CHEON[facility]ISM OBSERVATI 7 HEALTH HEALTH ON [facility] SERVICE PER HOUR COMPREHEN 93219 [facility] QUEST SIVE 7 [facility] DIAGNOSTI METABOLIC [place] CS PANEL INCORPORA T INJ J0702 CHE[facility]ISM CHE[facility]ISM BETAMETHA 7 [facility] SONE [facility] ACETATE & PHOSPHATE 3 MG INJECTION J1170 CHEONDOISM CHEONDOISM 7 [facility] HYDROMORP [facility] PHIL UP TO 4 MG THER 43620 CHEONDOISM CHEONDOISM PROPH/DX 7 [facility] NJX EA [facility] SEQL IV PUSH SBST/DRUG FAC INJECTION J2790 [facility] BOWMAN RHO D IG 7 [facility] HUMAN MEDICAL FULL DOSE GROUP 300 MCG THERAPEUT 46756 [facility] BOWMAN IC 7 [facility] PROPHYLAC MEDICAL TIC/DX GROUP INJECTION SUBQ/IM URNLS DIP 82790 BELL LUU 7 [facility] STICK/TAB INC [place] [address] BELL LUU INFUSION 7 [facility] THERAPY/P INC INC ROPHYLAXI S /DX 1ST TO 1 HR UNCLASSIF J3490 BE[facility] LUU IED DRUGS 7 [place] [address] BE[facility] LUU RETROPERI 7 [facility] TONEAL INC [place] [address] [place] RETROPERI 7 MEDICAL TONEAL IMAGING REAL TIME ASS W/IMAGE LIMITED DOPPLER 73130 BELL GREGG VELOCIMET 7 MEM HOS[facility] RY INC UMBILICAL ARTERY COMPREHEN 07288 [facility] LUU SIVE 7 [facility] [place] [address] BELL LUU 7 [facility] UTERUS INC INC LIMITED 1/> FETUSES 00631 [facility] LUU BIOPHYSIC 7 [facility] AL INC INC PROFILE W/O NON-STRES S TESTING ANTIBODY 17756 [facility] LUU SCREEN 7 [facility] RBC EACH INC INC SERUM TECHNIQUE CALCULUS 28380 BE[facility] LUU XRAY 7 [facility] DIFFRACTI INC INC ON THER 13597 [facility] LUU PROPH/DX 7 [facility] NJX EA INC [place] [address] BE[facility] LUU INFUSION 7 [facility] THERAPY/P INC INC ROPHYLAXI S /DX 1ST TO 1 HR THERAPEUT 66546 BELL LUU IC 7 [facility] INJECTION INC INC IV PUSH EACH NEW DRUG URNLS DIP 76788 BELL LUU 7 [facility] STICK/TAB INC INC LET REAGENT AUTO MICROSCOP Y THERAPEUT 70335 [facility] LUU IC 7 [facility] PROPHYLAC INC INC TIC/DX INJECTION SUBQ/IM CULTURE 55038 BELL LUU BACTERIAL 7 [facility] INC INC QUANTTAT[place] [address] BELL LUU UREA 7 [facility] NITROGEN INC INC QUANTITAT SUZAN UNCLASSIF J3490 BELL LUU IED DRUGS 7 [facility] INC INC CREATININ 95550 BELL LUU E BLOOD 7 [facility] INC INC 41578 [facility] DANII NONSTRESS 7 PHYSICIAN TEST S GROUP THER 48272 BELL LUU PROPH/DX 7 [facility] NJX IV INC INC PUSH SINGLE/1S T SBST/DRUG URNLS DIP 82960 BELL LUU 7 [facility] STICK/TAB INC INC LET REAGENT AUTO MICROSCOP Y THERAPEUT 89231 BELL LUU IC 7 [facility] INJECTION INC INC IV PUSH EACH NEW DRUG COLLECTIO 06762 BELL LUU N VENOUS 7 [facility] BLOOD INC INC VENIPUNCT URE THERAPEUT 54607 BE[facility] LUU IC 7 [facility] PROPHYLAC INC INC TIC/DX INJECTION SUBQ/IM UNCLASSIF J3490 BELL LUU IED DRUGS 7 [facility] INC INC OBSERVATI 65942 [facility] DANII ON CARE 6 PHYSICIAN DISCHARGE S GROUP MANAGEMEN T INITIAL 63926 [facility] DANII OBSERVATI 6 PHYSICIAN ON S GROUP CARE/DAY 50 MINUTES US PREG 63158 [facility] CHEON[facility] UTERUS [address] [place] [address] W/DETAIL [facility] JULIÁN 1ST GESTATION OBSERVATI 13051 [facility] DANII ON CARE 6 PHYSICIAN DISCHARGE S [facility] G0378 BELL LUU OBSERVATI 6 [facility] ON INC INC [facility] G0378 BELL LUU OBSERVATI 6 [facility] ON INC INC SERVICE PER HOUR DRUG TST G0477 BELL LUU PRESUMP;C 6 [facility] PBL BEING INC INC READ DC OPT OBV ONLY INITIAL 10256 [facility] DANII OBSERVATI 6 PHYSICIAN ON S GROUP CARE/DAY 30 MINUTES THERAPEUT 22634 BELL LUU IC 6 [facility] PROPHYLAC INC INC TIC/DX INJECTION SUBQ/IM URNLS DIP 08552 [facility] LUU 6 [facility] STICK/TAB INC INC LET REAGENT AUTO MICROSCOP Y DRUG TST G0477 [facility] DANII PRESUMP;C 6 PHYSICIAN PBL BEING S GROUP READ DC [place] O[place] PR[place] [address] [facility] OFFICE 5 REGIONAL REG MEDICAL SCHEDD C EVN WKEND/HOL IDAY HRS IAADIADOO 59476 [facility] 5 REGIONAL INFLUENZA MEDICAL C URINE 50150 [facility] 5 REGIONAL TEST MEDICAL VISUAL C COLOR CMPRSN METHS IAADIADOO 05844 [facility] 5 REGIONAL STREPTOCO MEDICAL CCUS C GROUP A URNLS DIP 92023 [facility] 5 REGIONAL STICK/TAB MEDICAL LET RGNT C NON-AUT[place] W/[place] [address] [facility] ABDOMEN & 5 [facility] W/O PLLC CONTRAST MATERIAL Encounters Encounter Start End Date Code Location Performer Type Date EMERGENCY 63279 BRENDEN HENNING DEPT 7 7 PHYSICIAN U VISIT S, PLLC HIGH SEVERITY& [facility]REAT [facility] Ni 7 7 [facility] OUTPATIEN INC T EMERGENCY 67938 BE[facility] 7 7 [facility] DEPARTMEN INC T VISIT HIGH/URGE NT SEVERITY EMERGENCY 39554 BRENDEN BOYD 7 7 PHYSICIAN DEPARTMEN S, [facility] T VISIT HIGH/URGE NT SEVERITY HOSPITAL BELL - 7 7 [facility] OUTPATIEN INC T EMERGENCY 67655 BE[facility] PEREZ 7 7 [facility] III DEPARTMEN INC T VISIT MODERATE SEVERITY HOSPITAL BELL - 7 7 [facility] OUTPATIEN INC T EMERGENCY 11360 BELL 7 7 [facility] DEPARTMEN INC T VISIT HIGH/URGE NT SEVERITY EMERGENCY 49939 BRENDEN EDDY DEPT 7 7 PHYSICIAN VISIT S, [facility] HIGH SEVERITY& THREAT [facility] CHEONDOISM - 7 7 HEALTH OUTPATIEN [facility] CHEONDOISM - 7 7 HEALTH INPATIENT [facility] CHEONDOISM - 7 7 HEALTH OUTPATIEN [facility] OFFICE 27646 [facility]ON[facility] BOWMAN OUTPATIEN 7 7 HEALTH T VISIT MEDICAL 15 [facility] OFFICE 05480 [facility] BOWMAN OUTPATIEN 7 7 HEALTH T VISIT MEDICAL 15 [facility] OFFICE 88368 [facility] DANIELLE OUTPATIEN 7 7 HEALTH T VISIT MEDICAL 15 [facility] CHEONDOISM - 7 7 HEALTH OUTPATIEN [facility] OFFICE 65193 [facility]ON[facility] DANIELLE OUTPATIEN 7 7 HEALTH T VISIT MEDICAL 15 [facility] CHEONDOISM - 7 7 HEALTH OUTPATIEN [facility] OFFICE 04296 [facility]ON[facility] BOWMAN OUTPATIEN 7 7 HEALTH T VISIT MEDICAL 15 [facility] CHEONDOISM - 7 7 HEALTH OUTPATIEN [facility] OFFICE 73891 [facility]ON[facility] BOWMAN OUTPATIEN 7 7 HEALTH T VISIT MEDICAL 15 GROUP MINUTES OFFICE [id number] CHEONDOISM [facility] OUTPATIEN 7 7 HEALTH T NEW 45 MEDICAL MINUTES [facility] - 7 7 [facility] BELL - 7 7 [facility] 00487 BRENDEN EDDY DEPT 7 7 PHYSICIAN VISIT S, [facility] HIGH SEVERITY& THREAT [facility] [id number] BELL 7 7 [facility] DEPARTMEN INC T VISIT MODERATE SEVERITY OFFICE [id number] [facility] 7 7 PHYSICIAN T VISIT S GROUP 15 MINUTES HOSPITAL BELL - 7 7 [facility] 30460 BELL 7 7 [facility] DEPARTMEN [facility] T VISIT MODERATE SEVERITY EMERGENCY 05640 BRENDEN MOJICA DEPT 7 7 PHYSICIAN VISIT S, [facility] HIGH SEVERITY& THREAT [facility]ERG[facility] 02616 BRENDEN HENNING 7 7 PHYSICIAN U DEPARTMEN S, [facility] T VISIT HIGH/URGE NT SEVERITY EMERGENCY 45869 BELL 7 7 [facility] T VISIT LOW/MODER SEVERITY [facility]OSPITAL BELL - 7 7 [facility]EN [facility] BELL - 6 6 [facility] INPATIENT [facility] CHEONDOISM - 6 6 HEALTH OUTPATIEN [place] [facility] OFFICE 92141 URSULA WONG CONSULTAT 6 6 HEALTH ION MEDICAL NEW/ESTAB GROUP PATIENT 15 MIN [facility]OSPITAL [facility] - 6 6 [facility] BE[facility] - 6 6 [facility] 76054 BRENDEN EDDY 6 6 [facility] T VISIT MODERATE SEVERITY EMERGENCY 94818 [facility] 6 6 [facility] DEPART[facility] T VISIT LOW/MODER SEVERITY OFFICE 89002 [facility] DANII OUTPATIEN 6 6 PHYSICIAN T NEW 45 S GROUP MINUTES OFFICE [id number] [facility] MARICEL OUTPATIEN 5 5 REGIONAL T VISIT MEDICAL 15 C MINUTES
--- OUTSIDE RECORDS SUMMARY | 2016-11-05 16:11 | External Medical Summary Rpt ---
Demographics Preferred Language Eritre[place] Marital Status Unknown Samaritan Affiliation Unknown Race Unknown Ethnic Group Unknown Author Author , Organization [employer] Address Unknown Phone Unavailable Purpose Continuity of Care Document - through 2016 Immunization No patient found.
--- OUTSIDE RECORDS SUMMARY | 2016-11-05 16:11 | External Medical Summary Rpt ---
Author Author [employer], [employer] Organization [employer] Address Unknown Phone Unavailable Results Calculi, Urinary Observa Value Referen Units Interpr Notes Date tion ce etation Range Color Brown . No No Oct 2 of informa informa 7 2016 Stone tion in tion in 1437:CO 7:20 PM source source GWEN data data previou sly reporte d as: TAN10/02 08/18 1437:CY DELMI previou sly reporte d as: MP Size . mm No 10/15/16 Oct 03 [Entitic informati 143:SIZE 2017 7:20 volume] on in PM of Stone source previousl data y reported as: FRAGMENTE DSpecimen received as fragments .10/15/161436:CELL ULAR MATER previousl y reported as: SEE ABOVE Nidus No . No No Oct 2 [Presen Nidus informa informa 7 2016 ce] in visuali tion in tion in 1437:NI 7:20 PM Stone zed source source DUS data data previou sly reporte d as: NOT VISUALI ZED10/02 08/18 1437:MORRIS RF CRYSTAL S previou sly reporte d as: SEE ABOVE Calculu Comment . No No Specime Oct 2 s : informa informa n 2017 analysi tion in tion in appears 7:20 PM s source source to [interp data data consist retatio of n] in blood Stone materia l embedde d with several calcium oxalate monohyd rate crystal s. Calculu Note: . No No Specime Oct 2 s informa informa n 2017 analysi tion in tion in quantit 7:20 PM s source source y [interp data data insuffi retatio cient n] in for Stone verific ation by repeata nalysis . Please Comment . No No Calculi Oct 2 note: informa informa report 2017 tion in tion in 7:20 PM source source without data data photogr aph will follow via compute r,mail, or box finisher deliver y. Comment Comment . No No Physici Oct 2 : informa informa an 2017 tion in tion in questio 7:20 PM source source ns data data regardi ng Calculi Analysi s contact [facility] at: [phone]. Weight of . mg No 10/15/16 Oct 03 Stone informati 1437:WEIG 2017 7:20 on in HT PM source previousl data y reported as: 4.0 mgUnable to obtain weight due to size and/or compositi on ofspecime n. Disclai Comment . No No This Oct 03 amira: informa informa test 2017 tion in tion in was 7:20 PM source source develop data data ed and its perform ance charact eristic sdeterm ined by [facility] . It has not been cleared orappro hortencia by the Food and Drug Adminis tration .Perfor med at: - [facility] [id number] [facility] Directo r: Ezekiel Clayton MD, Phone: [phone] Composi Comment . No No SPECIME Oct 2 tion informa informa N 2017 tion in tion in APPEARS 7:20 PM source source TO data data CONSIST OF CELLULA R MATERIA L AND FIBERSE MBEDDED WITH SEVERAL CRYSTAL S TOO SMALL TO IDENTIF Y.SPECI MEN QUANTIT Y INSUFFI CIENT FOR VERIFIC ATION BY REPEATA NALYSIS . 1437:CO MPOSITI ON previou sly reporte d as: SEE BELOW:S PECIMEN APPEARS TO CONSIST OF CELLULA R MATERIA L ANDFIBE RSEMBED DED WITH SEVERAL CRYSTAL S TOO SMALL TO IDENTIF Y.SPECI MEN QUANTIT Y INSUFFI CIENT FOR VERIFIC ATION BY REPEATA NALYSIS .Percen tage (Repres ents the % composi tion) Comprehensive metabolic 2000 panel in Serum or Plasma Observa Value Referen Units Interpr Notes Date tion ce etation Range Albumin/G 1.1 - 1.8 No Low No Brian 2 lobulin informati informati 2017 6:15 [Mass on in on in PM ratio] in source source Serum or data data Plasma Albumin 3.4 - 5.0 gm/dL Normal No Brian 2 [Mass/vol informati 2017 6:15 ume] in on in PM Serum or source Plasma data Alkaline 46 - 116 U/L Normal No Brian 2 phosphata informati 2017 6:15 se on in PM [Enzymati source c data activity/ volume] in Serum or Plasma Bilirubin 0.2 - 1.0 mg/dL Normal No Brian 2 .total informati 2017 6:15 [Mass/vol on in PM ume] in source Serum or data Plasma Urea 7 - 18 mg/dL Normal No Brian 2 nitrogen informati 2017 6:15 [Mass/vol on in PM ume] in source Serum or data Plasma Calcium 8.5 - mg/dL Normal No Brian 2 [Mass/vol 10.1 informati 2017 6:15 ume] in on in PM Serum or source Plasma data Chloride 98 - 107 mmoL/L Normal No Brian 2 [Moles/vo informati 2017 6:15 lume] in on in PM Serum or source Plasma data Carbon 21.0 - mmoL/L Normal No Brian 2 dioxide, 32.0 informati 2017 6:15 total on in PM [Moles/vo source lume] in data Serum or Plasma Creatinin 0.55 - mg/dL Normal No Brian 2 e 1.02 informati 2017 6:15 [Mass/vol on in PM ume] in source Serum or data Plasma Creatinin 50 - 200 ML/MIN Normal No Brian 2 e renal informati 2017 6:15 clearance on in PM source predicted data by Cockcroft -Gault formula Estimated 59- ML/MIN No REFERENCE Brian 2 informati RANGE: 2017 6:15 glomerula on in >60 PM r source ML/MIN/1. filtratio data 73 SQUARE n rate METERSIf (GF this patient is -A merican, then multiply theresult by 1.210. Globulin 1.3 - 3.2 gm/dL High No Brian 2 [Mass/vol informati 2017 6:15 ume] in on in PM Serum source data Glucose 74 - 106 mg/dL Normal No Brian 2 [Mass/vol informati 2017 6:15 ume] in on in PM Serum or source Plasma data Potassium 3.5 - 5.1 mmoL/L Normal No Brian 2 informati 2017 6:15 [Moles/vo on in PM lume] in source Serum or data Plasma Sodium 136 - 145 mmoL/L Normal No Oct 2 [Moles/vo informati 2016 6:15 lume] in on in PM Serum or source Plasma data Aspartate 15 - 37 U/L Low No Oct 2 informati 2016 6:15 aminotran on in PM sferase source [Enzymati data c activity/ volume] in Serum or Plasma Alanine 12 - 78 U/L Normal No Oct 2 aminotran informati 2016 6:15 sferase on in PM [Enzymati source c data activity/ volume] in Serum or Plasma Protein 6.4 - 8.2 gm/dL High No Oct 2 [Mass/vol informati 2016 6:15 ume] in on in PM Serum or source Plasma data Lipase [Enzymatic activity/volume] in Serum or Plasma Observa Value Referen Units Interpr Notes Date tion ce etation Range Lipase 73 - 393 U/L Normal No Oct 2 [Enzymati informati 2016 6:15 c on in PM activity/ source volume] data in Serum or Plasma CBC W Auto Differential panel in Blood Observa Value Referen Units Interpr Notes Date tion ce etation Range Basophils 0 - 0.2 K/MM3 Normal No Oct 2 informati 2016 6:15 [#/volume on in PM ] in source Blood by data Automated count Basophils 0.1 - 2.0 % Normal No Brian 2 /100 informati 2017 6:15 leukocyte on in PM s in source Blood by data Automated count Eosinophi 0.0 - 0.4 K/mm3 Normal No Oct 2 ls informati 2016 6:15 [#/volume on in PM ] in source Blood by data Automated count Eosinophi 0.1 - % Normal No Oct 2 ls/100 12.0 informati 2016 6:15 leukocyte on in PM s in source Blood by data Automated count Granulocy 1.8 - 7.8 K/mm3 Normal No Brian 2 addis informati 2016 6:15 [#/volume on in PM ] in source Blood by data Automated count Granulocy 37.0 - % Normal No Oct 2 addis/100 80.0 informati 2016 6:15 leukocyte on in PM s in source Blood by data Automated count Hematocri 37.0 - % Normal No Oct 2 t [Volume 47.0 informati 2016 6:15 on in PM Fraction] source of Blood data Hemoglobi 12.2 - g/dL Low No Oct 2 n 16.2 informati 2017 6:15 [Mass/vol on in PM ume] in source Blood data Lymphocyt 0.7 - 4.5 K/mm3 Normal No Brian 2 es informati 2017 6:15 [#/volume on in PM ] in source Unspecifi data ed specimen by Automated count Lymphocyt 10 - 50.0 % Normal No Brian 2 es informati 2017 6:15 [#/volume on in PM ] in source Unspecifi data ed specimen by Automated count Erythrocy 27 - 31.2 pg Low No Brian 2 te mean informati 2017 6:15 corpuscul on in PM ar source hemoglobi data n [Entitic mass] Erythrocy 31.8 - g/dl Low No Brian 2 te mean 35.4 informati 2017 6:15 corpuscul on in PM ar source hemoglobi data n concentra tion [Mass/vol ume] by Automated count Erythrocy 82.2 - fl Normal No Brian 2 te mean 97.8 informati 2017 6:15 corpuscul on in PM ar volume source [Entitic data volume] by Automated count Monocytes 0.1 - 1.0 K/mm3 Normal No Brian 2 informati 2017 6:15 [#/volume on in PM ] in source Blood by data Automated count Monocytes 1.7 - 9.3 % Normal No Brian 2 /100 informati 2017 6:15 leukocyte on in PM s in source Blood by data Automated count Platelet 7.4 - fl Low No Brian 2 mean 10.4 informati 2017 6:15 volume on in PM [Entitic source volume] data in Blood by Automated count Platelets 142 - 424 K/mm3 Normal No Brian 2 informati 2017 6:15 [#/volume on in PM ] in source Blood data Erythrocy 4.2 - 5.4 M/mm3 Normal No Brian 2 addis informati 2017 6:15 [#/volume on in PM ] in source Amniotic data fluid Erythrocy 11.5 - % Normal No Brian 2 te 17.5 informati 2017 6:15 distribut on in PM ion width source [Entitic data volume] by Automated count Leukocyte 4.8 - K/MM3 Normal No Brian 2 s 10.8 informati 2017 6:15 [#/volume on in PM ] in source Blood data Urinalysis dipstick W Reflex Microscopic panel in Urine Observa Value Referen Units Interpr Notes Date tion ce etation Range Appeara CLOUDY CLEAR No No No Brian 2 nce of informa informa informa 2017 Urine tion in tion in tion in 5:20 PM source source source data data data Bacteri 2+ O No No No Brian 2 a informa informa informa 2017 [Presen tion in tion in tion in 5:20 PM ce] in source source source Urine data data data sedimen t by Light microsc opy Bilirub NEGATIV NEG No No No Brian 2 in E informa informa informa 2017 [Presen tion in tion in tion in 5:20 PM ce] in source source source Urine data data data by Test strip Erythro 3+ NEG No Abnorma No Brain 2 cytes informa l informa 2017 [Presen tion in tion in 5:20 PM ce] in source source Urine data data Color YELLOW YELLOW No No No Brian 2 of informa informa informa 2017 Urine tion in tion in tion in 5:20 PM source source source data data data Glucose NEG No No No Brian 2 [Mass/vol informati informati informati 2017 5:20 ume] in on in on in on in PM Urine by source source source Test data data data strip Ketones NEGATIV NEG mg/dL No No Brian 2 E informa informa 2017 [Presen tion in tion in 5:20 PM ce] in source source Urine data data by Automat ed test strip Mucus NEGATIV NEG No No No Brian 2 [Presen E informa informa informa 2016 ce] in tion in tion in tion in 5:20 PM Urine source source source sedimen data data data t by Light microsc opy Nitrite NEGATIV NEG No No No Brian 2 E informa informa informa 2017 [Presen tion in tion in tion in 5:20 PM ce] in source source source Urine data data data by Test strip pH of 5.0 - 8.5 No Normal No Brain 2 Urine informati informati 2017 5:20 on in on in PM source source data data Protein NEG mg/dL No No Brian 2 [Mass/vol informati informati 2017 5:20 ume] in on in on in PM Urine by source source Automated data data test strip Erythro 50-100 0 rbc/hpf No No Brian 2 cytes informa informa 2017 [Presen tion in tion in 5:20 PM ce] in source source Urine data data sedimen t by Light microsc opy Specific 1.005 - No Normal No Brian 2 gravity 1.030 informati informati 2017 5:20 of Urine on in on in PM source source data data Epithel 3-5 0 - 5 #/hpf No No Brian 2 ial informa informa 2017 cells.s tion in tion in 5:20 PM quamous source source data data [Presen ce] in Urine sedimen t by Microsc opy high power field Urobili 0.2 NEG E.U./dL No No Brian 2 nogen informa informa 2017 [Presen tion in tion in 5:20 PM ce] in source source Urine data data by Test strip Leukocyte O wbc/hpf No No Brian 2 s informati informati 2017 5:20 [#/volume on in on in PM ] in source source Urine data data Urinalysis dipstick W Reflex Microscopic panel in Urine Observa Value Referen Units Interpr Notes Date tion ce etation Range Appeara CLOUDY CLEAR No No No Brian 2 nce of informa informa informa 2017 Urine tion in tion in tion in 5:20 PM source source source data data data Bilirub NEGATIV NEG No No No Brian 2 in E informa informa informa 2016 [Presen tion in tion in tion in 5:20 PM ce] in source source source Urine data data data by Test strip Erythro 3+ NEG No Abnorma No Brian 2 cytes informa l informa 2016 [Presen tion in tion in 5:20 PM ce] in source source Urine data data Color YELLOW YELLOW No No No Brian 2 of informa informa informa 2017 Urine tion in tion in tion in 5:20 PM source source source data data data Glucose NEG No No No Brian 2 [Mass/vol informati informati informati 2017 5:20 ume] in on in on in on in PM Urine by source source source Test data data data strip Ketones NEGATIV NEG mg/dL No No Brian 2 E informa informa 2017 [Presen tion in tion in 5:20 PM ce] in source source Urine data data by Automat ed test strip Mucus NEGATIV NEG No No No Brian 2 [Presen E informa informa informa 2017 ce] in tion in tion in tion in 5:20 PM Urine source source source sedimen data data data t by Light microsc opy Nitrite NEGATIV NEG No No No Brian 2 E informa informa informa 2016 [Presen tion in tion in tion in 5:20 PM ce] in source source source Urine data data data by Test strip pH of 5.0 - 8.5 No Normal No Brian 2 Urine informati informati 2017 5:20 on in on in PM source source data data Protein NEG mg/dL No No Brian 2 [Mass/vol informati informati 2017 5:20 ume] in on in on in PM Urine by source source Automated data data test strip Specific 1.005 - No Normal No Brian 2 gravity 1.030 informati informati 2017 5:20 of Urine on in on in PM source source data data Urobili 0.2 NEG E.U./dL No No Brian 2 nogen informa informa 2016 [Presen tion in tion in 5:20 PM ce] in source source Urine data data by Test strip Choriogonadotropin.beta subunit [Units] in 24 hour Urine Observa Value Referen Units Interpr Notes Date tion ce etation Range Choriogon NEG No No No Brian 2 adotropin informati informati informati 2017 5:20 .beta on in on in on in PM subunit source source source [Units] data data data in 24 hour Urine Stone Analysis Observa Value Referen Units Interpr Notes Date tion ce etation Range Color Smart . No No No September 04 of informa informa informa 2017 Stone tion in tion in tion in 9:20 PM source source source data data data Size . mm No Specimen September 04 [Entitic informati received 2017 9:20 volume] on in as PM of Stone source fragments data . Nidus No . No No No September 04 [Presen Nidus informa informa informa 2017 ce] in visuali tion in tion in tion in 9:20 PM Stone zed source source source data data data Calculu Comment . No No Specime September 04 s : informa informa n 2017 analysi tion in tion in appears 9:20 PM s source source to [interp data data consist retatio of n] in cellula Stone r materia l and fibers embedde d withsev eral crystal s too small to identif y. Calculu Note: . No No Specime September 4 s informa informa n 2017 analysi tion in tion in quantit 9:20 PM s source source y [interp data data insuffi retatio cient n] in for Stone verific ation by repeata nalysis . Photo Comment . No No Photogr September 04 informa informa aph 2017 tion in tion in will 9:20 PM source source follow data data under separat e cover. Comment Comment . No No Physici September 04 : informa informa an 2017 tion in tion in questio 9:20 PM source source ns data data regardi ng Calculi Analysi s contact [facility] at: [phone]. Weight of . mg No No September 04 Stone informati informati 2017 9:20 on in on in PM source source data data Please Comment . No No Calculi September 04 note: informa informa report 2017 tion in tion in with 9:20 PM source source photogr data data aph will follow via compute r,mail or box finisher deliver y. Disclai Comment . No No This September 04 amira: informa informa test 2017 tion in tion in was 9:20 PM source source develop data data ed and its perform ance charact eristic sdeterm ined by [facility] . It has not been cleared orappro hortencia by the Food and Drug Adminis tration .Perfor med at: - [facility] [address] [id number] Directo r: Ezekiel Clayton MD, Phone: [phone] Composi Comment . No No Percent September 04 tion informa informa age 2017 tion in tion in (Repres 9:20 PM source source ents data data the % composi tion) Specime Comment . No No Source: September 04 n : informa informa kidney 2017 prepara tion in tion in 9:20 PM tion source source [Type] data data of Unspeci fied specime n
--- OUTSIDE RECORDS SUMMARY | 2016-11-05 16:11 | External Medical Summary Rpt ---
Demographics Preferred Language Haitian Marital Status Unknown Hoahaoism Affiliation Unknown Race Unknown Ethnic Group Unknown Author Author , Organization [employer] Address Unknown Phone Unavailable Purpose Continuity of Care Document - through 2016 Immunization No patient found.
--- OUTSIDE RECORDS SUMMARY | 2016-11-05 16:11 | External Medical Summary Rpt ---
[...] aph will follow via compute r,mail, or digital associate media director deliver y. Comment Comment . No No Physici Oct 2 : informa informa an 2017 tion in tion in questio 7:20 PM source source ns data data regardi ng Calculi Analysi s contact [facility] at: [phone]. Weight of . mg No 10/15/16 Oct [...] Drug Adminis tration .Perfor med at: - [facility] [id number] [facility] Directo r: Ezekiel Clayton MD, Phone: [phone] Composi Comment . No No SPECIME Oct [...] Erythrocy 27 - 31.2 pg Low No Rbian 2 te mean informati 2017 6:15 corpuscul [...] No Brian 2 cytes informa l informa 2017 [Presen [...] ng Calculi Analysi s contact [facility] at: . Weight of . mg No No September 04 Stone informati informati 2017 9:20 on in on in PM source source data data Please Comment . No No Calculi September 04 note: informa informa report 2017 tion in tion in with 9:20 PM source source photogr data data aph will follow via compute r,mail or digital associate media director deliver y. Disclai Comment . No No This September 04 amira: informa informa test 2017 tion in tion in was 9:20 PM source source develop data data ed and its perform ance charact eristic sdeterm ined by [facility] . It has not been cleared orappro hortencia by the Food and Drug Adminis tration .Perfor med at: - [facility] [address] [id number] Directo r: Ezekiel Clayton MD, Phone: [phone] Composi Comment . No No Percent September [...]
--- NOTE | 2016-11-05 16:17 | Emergency Room Report ---
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 N Clinical Suspician of Infection? N Mental Status: 1 - Regular (Normal Baseline) Sepsis Risk:Severe Sepsis Risk Have you (or family members/close friends) recently traveled outside the [facility]? N If Yes, where/when: Have you had exposure to infectious disease within the past month? TB? Other? Specify: Comment The patient complains of RIGHT flank pain that began at about 1:00 today. It radiates around to her anterior abdomen. She has had vomiting. She says symptoms are the same as with previous kidney stones, of which she has had numerous. She says she has had several lithotripsies. Her urologist is Samuel Enriquez at [facility] in [facility]. She says she last saw him about 3 months ago. She says that she had several kidney stones while she was and they discussed doing a stent, but did not. She has been here to this emergency Department 3 times since then and has had CT scans each time which has not shown any renal or ureteral calculi. The patient is aware of this and says her kidney stones never show up on a CAT scan, but she passes them. She says she has provided the stones here that she has passed. I can find one result of a stone analysis which describes tissue fibers and a small calcification and blood clot. I do not see any stone analyses that indicate a definite stone. ALLERGIES Coded Allergies: Penicillins (S-DIFF. BREATHING 11/05/16) lamotrigine (From LAMICTAL) (11/05/16) morphine (11/05/16) Home Medications Reported Medications SERTRALINE HYDROCHLORIDE (Zoloft 100MG) 200 MG PO DAILY Clonazepam (Clonazepam 1MG) 1 MG PO DAILY NORETHINDRONE AC-ETH ESTRADIOL (Loestrin 21 1-20 Tablet) 1 TAB PO DAILY BUPROPION HCL SR (Wellbutrin SR 100MG) 100 MG PO DAILY History Medical History General CAD? No Angina: No [place]: No Hypertension? No Hyperlipidemia? No CHF? No DVT? No PE? No COPD? No Asthma? No Anemia? No GERD? No Gastric ulcers? No GI Bleed? No Hernia? No Thyroid Problems? No Hypothyroidism? No CVA? No Seizures? No Diabetes? No Renal Insuffiency? No End Stage Renal Disease? No UTI? Yes Stones? Yes BPH? No GB Disease: No Nephritic Syndrome? No Asplenia? No Hepatitis? No Sickle Cell Disease? No Arthritis? No Migraines? No Cataracts? No Glaucoma? No MRSA? No HIV? No TB? No Anxiety? No Depression? No Cancer? No More? 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 Review of Systems All Other Systems Reviewed and Negative Constitutional denies fever Gastrointestinal abdominal pain, nausea, vomiting Genitourinary hematuria. Physical Exam Vital Signs Vital Signs Date Time Temp Pulse Resp B/P Pulse O2 O2 Flow FiO2 Ox Delivery Rate 11/05 1814 152 20 165/100 94 11/05 1712 92 20 115/73 98 11/05 1700 20 11/05 1659 20 11/05 1650 82 20 121/73 100 / 1512 98.3 123 24 99 General Appearance moderate distress, Occasionally screaming in pain. Cries without tears. Eye Exam - bilateral eye normal exam, bilateral eye PERRL, bilateral eye EOMI Ear, Nose, Throat hearing grossly normal, normal ENT inspection Neck normal inspection, non-tender, supple, full range of motion Respiratory Status Yes: trachea midline, chest symmetrical, non tender chest. No: respiratory distress. Lung Sounds bilateral: normal breath sounds, lungs clear. 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 Yes Adrien was queried for this patient? Yes Reference #: [id number] Comment 64 rxs. last opiate rx 12 vicodin 10 mg on 09/05/16. Few opiate prescriptions. Most prescriptions are for clonazepam and zolpidem. Results/Orders Laboratory Tests 11/05/16 1630: Opiates Screen NEGATIVE, Urine Methadone Screen NEGATIVE, Barbiturates NEGATIVE, Phencyclidine Screen NEGATIVE, Amphetamines Screen NEGATIVE, Benzodiazepines Screen POSITIVE H, Cocaine Screen NEGATIVE, Marijuana (THC) Screen NEGATIVE, Urine Color DK YELLOW, Urine Appearance SL CLOUDY, Urine pH 6.0, Ur Specific [place] >= 1.030, Urine Protein TRACE H, Urine Ketones 1+ H, Urine Blood 3+ H , Urine Nitrate NEGATIVE, Urine Bilirubin NEGATIVE, Urine Urobilinogen 0.2, Ur Leukocyte Esterase NEGATIVE, Urine RBC TNTC, Urine WBC OCC, Ur Squamous Epith Cells 3-5, Urine Bacteria 1+, Urine Mucus 2+, Urine Glucose NEGATIVE 11/05/16 1605: Sodium 143, Potassium 3.5, Chloride 107, Carbon Dioxide 23, BUN 8, Creatinine 0.7, Estimated Creat Clear 147, Estimated GFR (MDRD) 100, Glucose 95, Calcium 9.3, Total Bilirubin 0.3, AST 16, ALT 18, Alkaline Phosphatase 71, Total Protein 8.2, Albumin 4.3, Globulin 3.9 H, Albumin/Globulin Ratio 1.1 Current Medication Orders Sig/Emerald Start time Last Medication Dose Route Stop Time Status Admin Hydrocodone Bitart/ 1 TAB ONCE ONE 11/05 183 r Acetaminophen PO 11/05 183 Promethazine HCl 0 .STK-MED ONE 11/05 1804 DC .ROUTE Sodium Chloride 1,000 ML .STK-MED ONE 11/05 1804 DC IV Ondansetron HCl 0 .STK-MED ONE 07/05 1804 DC .ROUTE Sodium Chloride 1,000 ML .Q1H1M 11/05 1800 AC 11/05 IV 11/05 1900 1808 Ondansetron HCl 4 MG ONCE ONE 11/05 1745 DC / IV 11/05 1746 1810 Promethazine HCl 12.5 MG ONCE ONE 11/05 1745 DC 11/05 IV 11/05 1746 1809 Sodium Chloride 25 ML ONCE ONE 11/05 1745 DC IV 11/05 1759 Hydromorphone HCl 1 MG ONCE ONE 11/05 1700 DCr / IV 11/05 1701 1659 Ketorolac 30 MG ONCE ONE 11/05 1700 DC 11/05 Tromethamine IV 11/05 1701 1700 Ondansetron HCl 4 MG ONCE ONE 11/05 1700 DC 11/05 IV 11/05 1701 1703 Ketorolac 0 .STK-MED ONE 11/05 1659 DC Tromethamine .ROUTE Ondansetron HCl 0 .STK-MED ONE 11/05 165 DC .ROUTE Hydromorphone HCl 0 .STK-MED ONE 11/05 1658 DCr .ROUTE Sodium Chloride 10 ML PRN PRN 11/05 1530 AC IV 11/06 1516 Orders Procedure Date/time Status DIET-NOTHING BY MOUTH 11/05 D Active KUB (SINGLE VIEW) 11/05 1712 Active DRUG ABUSE SCREEN (TRIAGE) 11/05 1643 Complete URINE 11/05 1619 Complete IV SALINE LOCK 11/05 1516 Active URINALYSIS/COMPLETE 11/05 151 Complete CBC WITH AUTO DIFF 11/05 151 Active CHEM 12 PROFILE 11/05 151 Complete Progress - The patient is very dramatic in the emergency department. At times yelling, crying, shouting "OW". 5:10 PM: Case discussed with Dr. Oglesby, urologist covering for Dr. Enriquez. She does not know the patient. We discussed whether she needs further imaging by CT scan, she does not feel this is necessary given that she has had 3 CT scans in the past 3 months. She is okay with treating her with pain medication and she can see Dr. Enriquez when he returns from out of town next week. KUB only. 5:14 PM: Dr. Oglesby called back, she says she found the patient in their database, she has only seen Dr. Enriquez once in February 2016. Notes indicate that she is seen for other urologists. Patient also tells me she has been seen at [facility]. Dr. Oglesby says that Notes there seemed to indicate that she is likely malingering. 5:15 PM: I discussed this with the patient. I also discussed with her that she has been seen here several times, 3 times in the past [address] scans, and has not followed up with urologist. I've advised her that in my particular case I would not treat with any opiate pain medications in the future. I will give her 1 prescription today and no opiates in the emergency department and no prescriptions for opiates on future visits after that. Departure Departure Disposition DC Home or Self Care(routine) Clinical Impression Primary Impression: Right flank pain Secondary Impressions: Hematuria Condition STABLE Patient Instructions DI for Flank Pain, DI for Hematuria Additional Instructions Call Dr. Enriquez's office tomorrow and make an appointment to be seen next week. Prescriptions Current Visit Scripts HYDROCODONE/ACETAMINOPHEN (Lortab 10-325 (generic) Tablet) 1 TAB PO Q6HP PRN pain #20 TAB ED Critical Care Critical Care No at [id number]
[2016-11-05 16:43] LABS: URINE BILIRUBIN - DIPSTICK NEGATIVE (NEG); URINE BLOOD 3+ (NEG)
[2016-11-05 17:25] LABS: AMPHETAMINES/METAMPHETAMINES NEGATIVE ng/mL (<1000)
[2016-11-05] MEDS ORDERED: HYDROCODONE/ACE1 TA5 PO (18:23)
[2016-11-05] MEDS ORDERED: PHENERGAN25 M3 PO (18:27)
[2016-11-05] MEDS ORDERED: NAPROSYN500 M1 PO (18:27)
[2016-11-05 18:43] VITALS: BP 165/100
--- NOTE | 2016-11-05 20:37 | RADIOLOGY REPORT PS360 ---
KUB (SINGLE VIEW) HISTORY: R flank pain ORDERING PHYSICIAN: Jay Alonso MD PATIENT AGE: 26 years COMPARISON: 08/30/2016 FINDINGS: The bowel gas pattern is unremarkable. No obvious obstruction.. No abnormal calcifications are evident. No obvious renal or ureteral calculi.. No acute bony anomalies evident. Bilateral pelvic phleboliths are present as before IMPRESSION: Negative KUB, no acute finding
== END 2016-11-05 18:43 | disposition home or self-care (01) ==
LOC: ER 14:48
PROVIDERS: Emergency Medicine
DX: R31.9 Hematuria, unspecified (principal)
CPT/HCPCS: J2405

== ENCOUNTER 2017-02-15 16:32 | Emergency (ER) | payer MEDICAID ==
[~2017-02-15] VITALS: Ht 162.6 cm; Wt 65.8 kg
[~2017-02-15 16:32] MED LIST changes: +BROMFED DM COU118 ML PO; +FLONASE 50 MCG16 GM; +HYDROCODONE/ACE1 TA5 PO; +NAPROSYN500 M1 PO
--- NOTE | 2017-02-15 16:48 | Emergency Room Report ---
History of Present Illness Time Seen by [id number] Presenting Problem in Triage Pt arrived:Walked Presenting Problem:PT REPORTS NAUSEA, LOWER BACK PAIN RADIATING AROUND TO RIB CAGE AREA. 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 N Clinical Suspician of Infection? N Mental Status: 1 - Regular (Normal Baseline) Sepsis Risk:Possible Sepsis Risk Have you (or family members/close friends) recently traveled outside the [place]? N If Yes, where/when: Have you had exposure to infectious disease within the past month? N TB? Other? Specify: Comment Patient complains of RIGHT flank pain radiating around into her RIGHT abdomen down to the suprapubic area. She has vomiting. Onset was a couple of hours ago. The patient has a history of recurrent flank pain and chronic hematuria. She has been seen in the emergency department numerous times for that. I saw her on for the same symptoms. At that time I noted that she had had 3 CTs in this emergency Department this year all negative for ureteral calculi and renal calculi. She also had a KUB x-ray on the date that I saw her in November as well as on 08/30/16. I spoke a physician at her urology group on the date of her visit. He reviewed her chart and felt that notes indicated there that she was likely malingering. I advised her at that time that I would not prescribe her opiates on return visits, either to be administered in the emergency department were prescribed for home use. She says that she did see Dr. Enriquez, her urologist, after I had seen her in the emergency department and she got a "good report" and states she has had no stones since then. However, she tells me that she was seen at the emergency department in [place] 3 weeks ago for pain on the same side that she is having now, but she insists it was not as severe. She says that she had a CT scan that did not show any stones, but says that she was told she had cystitis and pneumonia. She says she was treated with doxycycline, Zofran, and does not recall whether she got pain medication. She states she took Zofran about an hour ago. ALLERGIES Coded Allergies: Penicillins (S-DIFF. BREATHING 11/05/16) lamotrigine (From LAMICTAL) (11/05/16) morphine (11/05/16) Home Medications Reported Medications SERTRALINE HYDROCHLORIDE (Zoloft 100MG) 200 MG PO DAILY BUPROPION HCL SR (Wellbutrin SR 100MG) 150 MG PO DAILY Clonazepam (Clonazepam 1MG) 1 MG PO DAILY NORETHINDRONE AC-ETH ESTRADIOL (Loestrin 21 1-20 Tablet) 1 TAB PO DAILY History Medical History General CAD? No Angina: No [place]: No Hypertension? No Hyperlipidemia? No CHF? No DVT? No PE? No COPD? No Asthma? No Anemia? No GERD? No Gastric ulcers? No GI Bleed? No Hernia? No Thyroid Problems? No Hypothyroidism? No CVA? No Seizures? No Diabetes? No Renal Insuffiency? No End Stage Renal Disease? No UTI? Yes Stones? Yes BPH? No GB Disease: No Nephritic Syndrome? No Asplenia? No Hepatitis? No Sickle Cell Disease? No Arthritis? No Migraines? No Cataracts? No Glaucoma? No MRSA? No HIV? No TB? No Anxiety? Yes Depression? Yes Cancer? No More? 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 Review of Systems All Other Systems Reviewed and Negative Constitutional denies fever Gastrointestinal abdominal pain, vomiting Musculoskeletal back pain Physical Exam Vital Signs Vital Signs Date Time Temp Pulse Resp B/P Pulse O2 O2 Flow FiO2 Ox Delivery Rate 02/15 1754 99.0 118 20 125/81 98 02/15 1721 113 20 139/72 96 02/15 1718 20 02/15 1636 98.4 120 20 155/98 97 General Appearance dramatic, anxious, tearful, dry heaves Eye Exam - bilateral eye normal exam, bilateral eye PERRL, bilateral eye EOMI Ear, Nose, Throat hearing grossly normal, normal ENT inspection Neck normal inspection, non-tender, supple, full range of motion Respiratory Status Yes: trachea midline, chest symmetrical. No: respiratory distress. Lung Sounds bilateral: normal breath sounds, lungs clear. Cardiovascular normal exam, regular rate/rhythm, no peripheral edema, no gallop, no JVD, no murmur, no rub, normal peripheral pulses Peripheral Pulses Pulses normal Yes Gastrointestinal normal bowel sounds, soft, no organomegaly, no guarding, no rebound, mildly tender RIGHT abdomen diffusely, very soft Back normal inspection, no CVA tenderness, no vertebral tenderness Extremities non-tender, normal range of motion, normal inspection Neurologic alert, oriented x 3 Mental status Anxious and tearful Skin intact, normal color, warm/dry Lymphatic no adenopathy Medical Decision Making LABS/Meds/Orders Pt receiving controlled substance in ED? No Adrien was queried for this patient? Yes Comment [id number] 17:03: pending, manual process 17:39: pending, manual process Results/Orders Laboratory Tests 02/15/17 1640: Urine Color KUMAR, Urine Appearance TURBID, Urine pH 6.0, Ur Specific [place] 1.025, Urine Protein TRACE H, Urine Ketones 1+ H, Urine Blood 3+ H, Urine Nitrate NEGATIVE, Urine Bilirubin NEGATIVE, Urine Urobilinogen 0.2, Ur Leukocyte Esterase TRACE H, Urine RBC TNTC, Urine WBC OCC, Ur Squamous Epith Cells 10-20, Urine Bacteria 2+, Urine Glucose NEGATIVE Current Medication Orders Sig/Emerald Start time Last Medication Dose Route Stop Time Status Admin Promethazine HCl 0 .STK-MED ONE 02/15 1717 DC .ROUTE Ketorolac 0 .STK-MED ONE 02/16 1716 DC Tromethamine .ROUTE Ketorolac 60 MG ONCE ONE 02/15 1715 DC 02/15 Tromethamine IM 02/15 Promethazine HCl 25 MG ONCE ONE 02/15 1715 DC 02/15 IM 02/16 1716 171 Sodium Chloride 25 ML ONCE ONE 02/15 1715 DC IV 02/15 172 Orders Procedure Date/time Status URINALYSIS/COMPLETE 02/15 164 Complete URINE 02/15 1647 Complete CULTURE, URINE 02/15 1640 Active Progress - 5:45 PM: Prior to discharge, the patient calls me into her room. She is very dramatic, sobbing, no tears, stating that she knows there is something wrong. She exhibited the same behavior the last time I saw her in the emergency room. I was also present at shift change on one of her prior visits when she was cared for by Dr. Berman, and signed out AGAINST MEDICAL ADVICE, and she was exhibiting the same behavior then as well. She has had multiple workups for severe flank pain and hematuria as noted. She has had 3 CAT scans here this year, one at [place] 3 weeks ago, and possibly others at other institutions. I do not feel that repeatedly doing CAT scans on her for this symptom complex is in her best interest. I have advised her on her last visit as well as today that I will not treat her flank pain with opiate medications were controlled substances. I have advised to follow-up with her physicians tomorrow, urology for her recurrent flank pain and hematuria and with her primary care physician. Departure Departure Disposition DC Home or Self Care(routine) Clinical Impression Primary Impression: Right flank pain Secondary Impressions: Hematuria Qualifiers: Hematuria type: unspecified type Qualified Code: R31.9 - Hematuria, unspecified Condition STABLE Patient Instructions DI for Flank Pain, DI for Hematuria Additional Instructions Follow-up with your urologist for your flank pain and hematuria. Prescriptions Current Visit Scripts Naproxen (Naprosyn 500MG Tab) 500 MG PO BID #14 TAB PROMETHAZINE HCL (Phenergan 25MG Tab (Geq)) 25 MG PO Q6HP PRN N/V #14 TAB ED Critical Care Critical Care No at 1937
[2017-02-15 16:53] LABS: URINE BLOOD 3+ (NEG)
[2017-02-15 17:01] LABS: URINE BILIRUBIN - DIPSTICK NEGATIVE (NEG)
--- OUTSIDE RECORDS SUMMARY | 2017-02-15 17:17 | External Medical Summary Rpt | CCD ---
Author Author , BOLIVAR Organization BOLIVAR Address Unknown Phone [email or web address] Care Team Providers Care Electronics Mechanic Name Role Phone [facility] Unavailable Unavailable [facility], [facility] Unavailable Unavailable [facility], [facility] Unavailable Unavailable [facility], [facility] CARUSO, CARUSO Unavailable Unavailable LORENZ, LORENZ Unavailable Unavailable DANIELLE, DANIELLE Unavailable Unavailable BROWN MARICEL, CHRISTINE MARICEL Unavailable Unavailable FOY, FOY Unavailable Unavailable ANA III, ANA Unavailable Unavailable III ORLANDO, ORLANDO Unavailable Unavailable NUNU, NUNU Unavailable Unavailable [facility]available [facility] Unavailable Unavailable [facility], [facility] HEMMER, HEMMER Unavailable Unavailable HIETT, HIETT Unavailable Unavailable [facility] Unavailable Unavailable MEDICAL C, [facility], Unavailable Unavailable [facility] MOJICA, MOJICA Unavailable Unavailable [facility] Un[facility] Unavailable Unavailable [facility], [facility] MALIA, MALIA Unavailable Unavailable KHURRAM, KHURRAM Unavailable Unavailable BOWMAN, BOWMAN Unavailable Unavailable [facility] [...] 2016 Problems Code Diagnosis DOS Provider Status J069 ACUTE UPPER 12-22-2016 [facility] HOSP RESPIRATORY INC INFECTION UNSPECIFIED R319 HEMATURIA 12-22-2016 [facility] INC [id number] PERSONAL 12-22-2016 [facility] HISTORY OF [facility] URINARY INC CALCULI R109 UNSPECIFIED 11-05-2016 [facility], PAIN [facility] R1084 GENERALIZED 10-03-2016 [facility]AL [facility] PAIN INC N132 HYDRONEPHRO 09-04-2016 [facility] SIS W/RENAL [facility] & URETRL INC CALCULOUS OBST N200 CALCULUS OF 09-04-2016 [facility], [facility] R1031 RIGHT LOWER 09-04-2016 [facility] N23 UNSPECIFIED 08-25-2016 [facility] RENAL [facility], COLIC [facility] R300 DYSURIA 07-17-2016 [facility] [place] Z391 ENCNTR FOR 07-17-2016 [facility] CARE & HEALTH EXAMINATION MEDICAL LACTATING GROUP MOTHER Z392 ENCOUNTER 07-17-2016 [facility] FOR ROUTINE HEALTH MEDICAL FOLLOW-UP GROUP O133 GESTATIONAL 06-25-2016 [facility] HTN W/O ANESTHESIA SIG PSC PROTEINURIA THIRD TRI O80 ENCOUNTER 06-25-2016 [facility] FOR ANESTHESIA FULL-TERM PSC UNCOMPLICAT ED DELIVERY Z370 SINGLE LIVE 06-25-2016 [facility] O134 GESTATIONAL 06-24-2016 [facility] HTN W/O HEALTH SIGNIF [place] PROTEINURIA COMP CB [id number] MAT CARE 06-24-2016 [facility] HEALTH KNWN/SUSP MEDICAL POOR FTL GROUP GRTH 3RD TRI UNS O665 ATTEMPTED 06-24-2016 [facility] APPLICATION HEALTH [facility] MEDICAL EXTRACTOR & GROUP FORCEPS [id number] L & D COMP 06-24-2016 [facility] CORD AROUND HEALTH NECK W/O [place] COMPRS NA/UNS Z2913 ENCOUNTER 06-24-2016 [facility] RHO IMMUNE GLOBULIN Z3A36 36 WEEKS 06-24-2016 [facility] GESTATION [facility] OF MEDICAL GROUP O163 UNSPECIFIED 06-20-2016 [facility] MATERNAL HEALTH HYPERTENSIO [place] N 3RD TRIMESTER X44333 OTHER SPEC 06-20-2016 [facility] HEALTH RELATED MEDICAL COND 3RD GROUP TRIMESTER O288 OT 06-20-2016 [facility] ABNORMAL HEALTH FIND ON [place] SCREENING MOTHER [id number] MATERNAL 06-20-2016 [facility] CARE OT HEALTH SPEC MEDICAL PROB 3RD GROUP TRI NA/UNS Z3A35 35 WEEKS 06-17-2016 [facility] O289 UNS 06-13-2016 [facility] ABNORMAL HEALTH FIND ON [place] SCREENING MOTHER [id number] OLIGOHYDRAM 06-13-2016 [facility] NIOS THIRD HEALTH TRIMESTER MEDICAL NA/UNS GROUP E669 OBESITY 06-10-2016 [facility] UNSPECIFIED HEALTH MEDICAL GROUP Z3A34 34 WEEKS 06-10-2016 [facility] Z3A33 33 WEEKS 06-03-2016 [facility] O210 MILD 05-28-2016 [facility] HYPEREMESIS [facility]ALTH [facility] Z418 ENC OTH 05-28-2016 [facility] PROC HEALTH PURPOSES MEDICAL OTH THAN GROUP [facility] N1330 UNSPECIFIED 05-25-2016 [facility] HYDRONEPHRO IMAGING ASS SIS O4443 LOW LYING 05-25-2016 [facility] NOS/WO [facility] ASS HEMORRHAGE 3RD TRIM O4703 FALSE LABOR 05-25-2016 [facility] BEFORE 37 MEM HOSP CMPLETE INC WEEKS GEST 3RD TRI Z331 05-25-2016 [facility] INCIDENTAL IMAGING ASS Z3A32 32 WEEKS 05-25-2016 [facility] GE[facility]ATION [facility] OF INC [id number] 05-16-2016 [facility] RELATED PHYSICIANS, RENAL PLLC DISEASE THIRD TRIMESTER [id number] STRAIN 05-16-2016 [facility] MUSCLE FASC [facility] & TENDON INC NECK LEVL INIT ENC [id number] STRAIN 05-16-2016 [facility] MUSCLE [facility] FASCIA & INC TENDON LOW BACK INITIAL [id number] UNSPECIFIED 05-16-2016 [facility] SPRAIN OF [facility] LEFT HIP INC INITIAL ENCOUNTER Z3480 ENC 05-15-2016 [facility] SUPER[facility]ION PHYSICIANS OTH NORMAL GROUP PREG UNS TRIMESTER Z3A30 30 WEEKS 05-09-2016 [facility]ATION [facility] OF INC O9989 OTH DZ & 05-08-2016 [facility] COND COMP PHYSICIANS, PREG PLLC CHILDBIRTH PUERPERIUM Z3483 ENC 05-08-2016 [facility] SUPERVISION [facility] OTH NORMAL INC 3 TRIMESTER Z3A31 31 WEEKS 05-08-2016 [facility] GESTATION PHYSICIANS, OF PLLC U62184 OTHER SPEC 03-31-2016 [facility] RELATED INC COND 2ND TRIMESTER Z3A26 26 WEEKS 03-31-2016 [facility]ATION [facility] OF INC [id number] MAT CARE 03-24-2016 [facility] OT HEALTH KNWN/SUSP MEDICAL POOR FTL GROUP GRTH 2ND TRI UNS Z3492 ENC 03-24-2016 [facility] NORMAL [facility]REE UNS 2 TRIMESTER Z3A23 23 WEEKS 03-24-2016 [facility] OF MEDICAL GROUP [id number] SUPERVISION 03-21-2016 [facility] OT HIGH PHYSICIANS RISK PREG GROUP SECOND TRIMESTER Z3A21 21 WEEKS 03-21-2016 [facility] GESTATION PHYSICIANS OF GROUP O2692 03-20-2016 [facility] RELATED PHYSICIANS, CONDITIONS PLLC UNS 2ND TRIMESTER Z3A24 24 WEEKS 03-20-2016 [facility]STATION [facility] Z3201 ENCOUNTER 03-05-2016 [facility] TEST RESULT POSITIVE 03297 ABDOMINAL 07-05-2014 [place] [facility] OTHER REGIONAL SPECIFIED MEDICAL C SITE 99288 ABDOMINAL 05-09-2014 [place] [facility], RADIOLOGY UNSPECIFIED PLLC SITE N20.0 CALCULUS OF KIDNEY N20.1 CALCULUS OF URETER N23 UNSPECIFIED RENAL COLIC N39.0 URINARY TRACT INFECTION, SITE NOT SPECIFIED R10.9 UNSPECIFIED ABDOMINAL PAIN R31.9 HEMATURIA, UNSPECIFIED Z33.1 STATE, INCIDENTAL Allergies, Adverse Reactions, Alerts Clinical Alert Notifications Alert Member has >/= 10 ED visits within the past 365 days Member has >/= 3 hosp admit & >/= 1 ED visit in 365 days Medications Na ND Rx Da Fi Fi Am Da Di Ph RX Ph St me C No te ll ll ou ys ag ar # ys at rm s nt no ma ic us Or Da si cy ia de te s n re d BU 45 09 10 30 30 00 RI Ac IA 96 -0 -0 .0 00 TE ti OP 30 7- 6- 00 01 ve IO 14 20 20 19 AI N 23 17 17 45 D HC 0 04 PH L AR XL MA CY 30 0 #3 MG 93 8 TA BL ET SE 69 09 10 75 30 00 RI Ac RT 09 -0 -0 .0 00 TE ti RA 70 7- 6- 00 01 ve LI 83 20 20 19 AI NE 50 17 17 87 D 2 64 PH HC AR L MA 10 CY 0 MG #3 93 TA 8 BL ET GA 62 08 09 30 30 00 RI Ac BA 75 -3 -2 .0 00 TE ti PE 60 1- 9- 00 01 ve NT 20 20 20 19 AI IN 20 17 17 73 D 1 31 PH 60 AR 0 MA MG CY TA #3 BL 93 ET 8 GA 62 08 09 3. 3 00 RI Ac BA 75 -2 -2 00 00 TE ti PE 60 6- 2- 0 00 ve NT 20 20 20 83 AI IN 20 17 17 47 D 1 98 PH 60 AR 0 MA MG CY TA #1 BL 60 ET 7 NO 68 08 09 21 28 00 RI Ac RE 46 -3 -2 .0 00 TE ti TH 20 0- 2- 00 01 ve IN 13 20 20 17 AI D- 28 17 17 67 D ET 1 70 PH H AR ES MA TR CY AD #3 1- 93 0. 8 02 MG BR 64 08 09 24 6 00 RI Ac OM 37 -2 -1 0. 00 TE ti PH 60 1- 5- 00 01 ve EN 65 20 20 0 19 AI IR 71 17 17 62 D -P 6 95 PH SE AR UD MA OE CY PH ED #3 -D 93 M 8 SY R FL 60 08 09 16 30 00 RI Ac UT 43 -2 -1 .0 00 TE ti IC 20 1- 5- 00 01 ve 26 20 20 19 AI ON 41 17 17 62 D E 5 96 PH IA AR OP MA CY 50 #3 MC 93 G 8 SP RA Y CL 16 08 09 90 30 00 RI Ac ON 72 -2 -1 .0 00 TE ti AZ 90 2- 5- 00 01 ve EP 13 20 20 19 AI AM 70 17 17 63 D 1 0 97 PH AR MG MA CY TA BL #3 ET 93 8 ZO 13 08 09 30 30 00 RI Ac LP 66 -2 -1 .0 00 TE ti ID 80 2- 5- 00 01 ve EM 00 20 20 19 AI 80 17 17 63 D TA 1 98 PH RT AR RA MA TE CY 10 #3 93 MG 8 TA BL ET IA 68 08 09 7. 3 00 RI Ac AM 46 -0 -0 00 00 TE ti IP 20 8- 1- 0 01 ve EX 33 20 20 19 AI OL 09 17 17 46 D E 0 84 PH 0. AR 12 MA 5 CY MG #3 TA 93 BL 8 ET IA 00 08 09 7. 7 00 RI Ac OP 22 -0 -0 00 00 TE ti RA 82 8- 1- 0 01 ve NO 77 20 20 19 AI LO 81 17 17 46 D L 1 86 PH ER AR MA 60 CY MG #3 93 CA 8 PS UL E BU 45 08 09 30 30 00 RI Ac IA 96 -0 -0 .0 00 TE ti OP 30 5- 1- 00 01 ve IO 14 20 20 19 AI N 23 17 17 45 D HC 0 04 PH L AR XL MA CY 30 0 #3 MG 93 8 TA BL ET NO 68 08 09 21 28 00 RI Ac RE 46 -0 -0 .0 00 TE ti TH 20 5- 1- 00 01 ve IN 13 20 20 17 AI D- 28 17 17 67 D ET 1 70 PH H AR ES MA TR CY AD #3 1- 93 0. 8 02 MG GA 62 07 08 30 30 00 RI Ac BA 75 -2 -1 .0 00 TE ti PE 60 3- 8- 00 01 ve NT 20 20 20 19 AI IN 20 17 17 28 D 1 19 PH 60 AR 0 MA MG CY TA #3 BL 93 ET 8 SE 69 07 08 75 30 00 RI Ac RT 09 -2 -1 .0 00 TE ti RA 70 4- 8- 00 01 ve LI 83 20 20 18 AI NE 50 17 17 03 D 2 73 PH HC AR L MA 10 CY 0 MG #3 93 TA 8 BL ET CL 16 07 08 90 30 00 RI Ac ON 72 -1 -1 .0 00 TE ti AZ 90 7- 1- 00 01 ve EP 13 20 20 54 AI AM 70 17 17 71 D 1 0 18 PH AR MG M #1 TA 21 BL 2 ET ZO 13 07 08 30 30 00 RI Ac LP 66 -1 -1 .0 00 TE ti ID 80 7- 1- 00 01 ve EM 00 20 20 54 AI 80 17 17 71 D TA 1 19 PH RT AR RA M TE #1 21 10 2 MG TA BL ET GA 62 07 08 7. 7 00 RI Ac BA 75 -1 -1 00 00 TE ti PE 60 7- 1- 0 01 ve NT 20 20 20 54 AI IN 20 17 17 71 D 1 20 PH 60 AR 0 M MG #1 21 TA 2 BL ET IA 68 07 08 30 15 00 RI Ac AM 46 -1 -0 .0 00 TE ti IP 20 1- 4- 00 01 ve EX 33 20 20 19 AI OL 09 17 17 13 D E 0 19 PH 0. AR 12 MA 5 CY MG #3 TA 93 BL 8 ET IA 00 07 08 30 30 00 RI Ac OP 22 -1 -0 .0 00 TE ti RA 82 1- 4- 00 01 ve NO 77 20 20 19 AI LO 81 17 17 13 D L 1 20 PH ER AR MA 60 CY MG #3 93 CA 8 PS UL E NO 68 07 08 21 28 00 RI Ac RE 46 -1 -0 .0 00 TE ti TH 20 2- 4- 00 01 ve IN 13 20 20 17 AI D- 28 17 17 67 D ET 1 70 PH H AR ES MA TR CY AD #3 1- 93 0. 8 02 MG BU 45 07 07 30 30 00 RI Ac IA 96 -0 -2 .0 00 TE ti OP 30 2- 8- 00 01 ve IO 14 20 20 18 AI N 23 17 17 03 D HC 0 74 PH L AR XL MA CY 30 0 #3 MG 93 8 TA BL ET IA 65 07 07 20 5 00 RI Ac OM 16 -0 -2 .0 00 TE ti ET 20 5- 8- 00 01 ve BOJORQUEZ 52 20 20 19 AI ZI 11 17 17 06 D NE 0 61 PH AR 25 MA CY MG #3 TA 93 BL 8 ET NA 68 07 07 20 10 00 RI Ac IA 46 -0 -2 .0 00 TE ti OX 20 5- 8- 00 01 ve EN 19 20 20 19 AI 00 17 17 06 D 50 1 62 PH 0 AR MG MA CY TA BL #3 ET 93 8 HY 00 07 07 [address] 40 -0 -2 .0 00 TE ti OC 60 5- 8- 00 01 ve OD 12 20 20 19 AI ON 50 17 17 06 D -A 1 64 PH CE AR TA MA IA CY NO PH #3 N 93 10 8 -3 25 CL 16 06 07 90 30 00 RI Ac ON 72 -1 -1 .0 00 TE ti AZ 90 7- 4- 00 01 ve EP 13 20 20 18 AI AM 70 17 17 81 D 1 0 13 PH AR MG MA CY TA BL #3 ET 93 8 ZO 13 06 07 30 30 00 RI Ac LP 66 -1 -1 .0 00 TE ti ID 80 7- 4- 00 01 ve EM 00 20 20 18 AI 80 17 17 81 D TA 1 14 PH RT AR RA MA TE CY 10 #3 93 MG 8 TA BL ET SE 69 06 07 75 30 00 RI Ac RT 09 -1 -1 .0 00 TE ti RA 70 5- 4- 00 01 ve LI 83 20 20 18 AI NE 50 17 17 80 D 2 79 PH HC AR L MA 10 CY 0 MG #3 93 TA 8 BL ET NO 68 06 07 21 28 00 RI Ac RE 46 -1 -0 .0 00 TE ti TH 20 4- 7- 00 01 ve IN 13 20 20 [...] MG 8 TA BL ET CL 16 05 06 90 30 00 [...] #3 1- 93 0. 8 02 MG SE 69 05 06 75 30 00 RI Ac RT 09 -1 -0 .0 00 TE ti RA 70 6- 9- 00 01 ve LI 83 20 20 18 AI NE 50 17 17 40 D 2 93 PH HC AR L MA 10 CY 0 MG #3 93 TA 8 BL ET BU 45 05 06 30 30 00 RI Ac IA 96 -0 -0 .0 00 TE ti [...] 1 23 PH CE AR TA MA IA CY NO PH #3 N 93 10 [...] 04 05 14 7 00 RI Ac IA 14 -2 -1 .0 00 TE ti [...] CY TA #3 BL 93 ET 8 OL 60 04 05 21 21 00 RI Ac AN 50 -0 -0 .0 00 TE ti ZA 53 9- 5- 00 01 ve PI 11 20 20 48 AI NE 10 17 17 67 D 5 3 20 PH AR MG MA CY TA BL #3 ET 95 4 SE 69 04 05 75 30 00 RI Ac RT 09 -0 -0 .0 00 TE ti RA 70 7- 5- 00 00 ve LI 83 20 20 81 AI NE 50 17 17 77 D 2 32 PH HC AR L MA 10 CY 0 MG #1 60 TA 7 BL ET ZO 13 04 04 7. 7 00 RI Ac LP 66 -0 -2 00 00 TE ti ID 80 2- 8- 0 01 ve EM 00 20 20 17 AI 80 17 17 61 D TA 1 40 PH RT AR RA MA TE CY 10 #3 93 MG 8 TA BL ET BU 10 03 04 30 30 00 RI Ac IA 37 -3 -2 .0 00 TE ti [...] MG 8 TA BL ET CL 16 02 03 60 30 00 [...] 2 32 5 CL 16 02 03 14 7 00 [...] 02 03 30 30 00 RI Ac IA 37 -1 -1 .0 00 TE ti [...] CY TA BL #1 ET 60 7 IA 00 01 02 30 7 00 RI [...] #1 N 60 5- 7 32 5 ON 65 01 02 15 [...] 1 60 PH CE AR TA MA IA CY NO PH #5 91 7. 5- 32 5 YARITZA 58 01 02 0. 1 00 RI Ac OS 16 -2 -1 50 00 TE ti TR 00 4- 7- 0 01 ve IX 84 20 20 16 AI 25 17 17 83 D TD 2 09 PH AP AR MA VA CY CC IN #3 E 93 SY 8 RI NG E CL 16 01 02 14 7 00 [...] -1 00 00 TE ti ID 80 5- 7- 0 01 ve EM 00 20 20 16 AI 80 17 17 47 D TA 1 86 PH RT AR RA MA TE CY 10 #3 93 MG 8 TA BL ET Results Labs Lab Lab Date Result Refere Interp Status Commen Order Detail nces retati t Range on Urine test (02-15-2017 16:40) Urine = NEG complet pregnan 017 NEGATIV ed cy test 16:40 E Urinalysis with microscopy (02-15-2017 16:40) Urine TURBID CLEAR complet appeara 017 TURBID ed nce 16:40 L determi nation Bacteri 2+ 2+ L O complet a 017 ed detecti 16:40 on in urine sedimen t by Urine NEGATIV NEG complet total 017 E ed bilirub 16:40 NEGATIV in E L detecti on by test Comment: BILIRUBIN CONFIRMED WITH ICTOTEST Urine 3+ 3+ L NEG complet blood 017 ed detecti 16:40 on Urine KUMAR YELLOW complet color 017 KUMAR L ed 16:40 Glucose = NEG complet ur 017 NEGATIV ed test 16:40 E strip Urine 1+ 1+ L NEG complet ketones 017 mg/dL ed 16:40 detecti on by automat ed robert Mucus TRACE NEG complet detecti 017 TRACE L ed on in 16:40 urine sedimen t by lig Urine NEGATIV NEG complet nitrite 017 E ed 16:40 NEGATIV detecti E L on by test strip Urine = 6.0 5.0-8.5 complet pH 017 ed 16:40 Urine = TRACE NEG complet protein 017 mg/dL ed 16:40 measure ment by automat ed t Erythro TNTC 0 complet cytes 017 TNTC L ed detecti 16:40 rbc/hpf on in urine sedimen t Urine = 1.025 1.005-1 complet specifi 017 .030 ed c 16:40 gravity measure ment [place] 10-20 0-5 complet s 017 10-20 L ed epithel 16:40 #/hpf ial cells detecti on in u Urine 0.2 0.2 NEG complet urobili 017 L ed nogen 16:40 E.U./dL detecti on by test str Urine = OCC O complet leukocy 017 wbc/hpf ed robert 16:40 count (number /volume ) Drugs identified in Urine by Screen method (11-05-2016 16:30) Ampheta NEGATIV <1000 complet mine 017 E ed [Presen 16:30 ce] in Urine by Screen method 11-Hydr NEGATIV <50 complet oxy 017 E ed delta-9 16:30 tetrahy drocann abinol [Presen ce] in Unspeci fied specime n Urinalysis dipstick W Reflex Microscopic panel in Urine (10-03-2016 17:20) Bacteri 2+ O complet a 017 ed [Presen 17:20 ce] in Urine sedimen t by Light microsc opy Erythro 50-100 0 complet cytes 017 ed [Presen 17:20 ce] in Urine sedimen t by Light microsc opy Epithel 3-5 0#/hp complet ial 017 f - ed cells.s 17:20 5#/hp quamous f [Presen ce] in Urine sedimen t by Microsc opy high power field Urinalysis dipstick W Reflex Microscopic panel in Urine (10-03-2016 17:20) Appeara CLOUDY CLEAR complet nce of 017 ed Urine 17:20 Bilirub NEGATIV NEG complet in 017 E ed [Presen 17:20 ce] in Urine by Test strip Erythro 3+ NEG Abnorma complet cytes 017 l ed [Presen 17:20 ce] in Urine Color YELLOW YELLOW complet of 017 ed Urine 17:20 Ketones NEGATIV NEG complet 017 E ed [Presen 17:20 ce] in Urine by Automat ed test strip Mucus NEGATIV NEG complet [Presen 017 E ed ce] in 17:20 Urine sedimen t by Light microsc opy Nitrite NEGATIV NEG complet 017 E ed [Presen 17:20 ce] in Urine by Test strip Urobili 0.2 NEG complet nogen 017 ed [Presen 17:20 ce] in Urine by Test strip HCV Ab Ser Ql (06-27-2016 15:47) HCV Ab [id number] Non-[place] complet Ser 017 07 ctive ed Donr Ql 15:47 Non-[place] ctive SCT CBC W Diff pnl,unspecified Bld (06-27-2016 08:11) Imm 06-27-2 0.08 0.00-0. complet Granulo 017 10*3/mm 03 ed cytes # 08:11 3 Bld Basophi 06-27-2 0.01 0.00-0. complet ls # 017 10*3/mm 20 ed Bld 08:11 3 Auto Eosinop 06-27-2 0.12 0.10-0. complet hil # 017 10*3/mm 30 ed Bld 08:11 3 Auto Monocyt 02-24-2 0.92 0.00-1. complet es # 017 10*3/mm 00 ed Bld 08:11 3 Auto Lymphoc 02-24-2 3.87 0.60-4. complet ytes # 017 10*3/mm 80 ed Bld 08:11 3 Auto Neutrop -24-2 9.30 1.50-8. complet hils # 017 10*3/mm 30 ed Bld 08:11 3 Auto Imm -24-2 0.6 % 0.0-0.6 complet Granulo 017 ed cytes 08:11 NFr Bld Basophi 24-2 0.1 % 0.0-1.0 complet ls NFr 017 ed Bld 08:11 Auto Eosinop -24-2 0.8 [...] 10*3/mm ed Auto 08:11 3 PMV Bld 24-2 10.9 fL 6.0-12. complet Auto 017 0 ed 08:11 RDW RBC 24-2 54.1 fl 37.0-54 complet Auto 017 .0 ed 08:11 RDW RBC -24-2 16.1 % 11.3-14 complet 017 .5 ed Auto-Rt 08:11 o MCHC 24-2 32.9 32.0-36 complet RBC 017 g/dL .0 ed Auto-mC 08:11 nc MCH RBC 24-2 30.4 pg 27.0-31 complet Qn 017 .0 ed Auto 08:11 MCV RBC 24-2 92.3 fL 80.0-99 complet Auto 017 .0 ed 08:11 Hct VFr 24-2 28.9 % 34.5-44 complet Bld 017 .0 ed Auto 08:11 Hgb 02-24-2 9.5 11.5-15 complet Bld-mCn 017 g/dL .5 ed c 08:11 RBC # 02-24-2 3.13 3.89-5. complet Bld 017 10*6/mm 14 ed Auto 08:11 3 WBC 02-24-2 14.30 3.50-10 complet nRBC 017 10*3/mm .80 ed cor # 08:11 3 Bld CBC W Diff pnl,unspecified Bld (06-26-2016 09:17) nRBC/10 02-23-2 0.0 0.0-0.0 complet 0 WBC [...] .0 ed NFr Bld 09:17 Auto Platele -23-2 181 150-450 complet t # Bld 017 10*3/mm ed Auto 09:17 3 PMV Bld -23-2 11.6 fL 6.0-12. complet Auto 017 0 ed 09:17 RDW RBC 02-23-2 53.1 fl 37.0-54 complet Auto 017 .0 ed 09:17 RDW RBC 02-23-2 15.8 % 11.3-14 complet 017 .5 ed Auto-Rt 09:17 o MCHC -23-2 32.8 32.0-36 complet RBC 017 g/dL .0 ed Auto-mC 09:17 nc MCH RBC -23-2 30.6 pg 27.0-31 complet Qn 017 .0 ed Auto 09:17 MCV RBC -23-2 93.2 fL 80.0-99 complet Auto 017 .0 ed 09:17 Hct VFr -23-2 25.9 % 34.5-44 complet Bld 017 .0 ed Auto 09:17 Hgb -23-2 8.5 11.5-15 complet Bld-mCn 017 g/dL .5 ed c 09:17 RBC # 02-23-2 2.78 3.89-5. complet Bld 017 10*6/mm 14 ed Auto 09:17 3 WBC -23-2 14.62 3.50-10 complet nRBC 017 10*3/mm .80 ed cor # 09:17 3 Bld CBC W Diff pnl,unspecified Bld (06-24-2016 10:55) Imm 02-21-2 0.04 0.00-0. complet Granulo 017 10*3/mm 03 ed cytes # 10:55 3 Bld Basophi -21-2 0.02 0.00-0. complet ls # 017 10*3/mm 20 ed Bld 10:55 3 Auto Eosinop -21-2 0.03 0.10-0. complet hil # 017 10*3/mm 30 ed Bld 10:55 3 Auto Monocyt -21-2 0.97 0.00-1. complet es # 017 10*3/mm 00 ed Bld 10:55 3 Auto Lymphoc 02-21-2 2.41 0.60-4. complet ytes # 017 10*3/mm 80 ed Bld 10:55 3 Auto Neutrop 02-21-2 6.85 1.50-8. complet hils # 017 10*3/mm 30 ed Bld 10:55 3 Auto Imm 02-21-2 0.4 % 0.0-0.6 complet Granulo 017 ed cytes 10:55 NFr Bld Basophi -21-2 0.2 % 0.0-1.0 complet ls NFr 017 ed Bld 10:55 Auto Eosinop 02-21-2 0.3 % 0.0-3.0 complet hil NFr 017 ed Bld 10:55 Auto Monocyt 02-21-2 9.4 % 0.0-12. complet es NFr 017 0 ed Bld 10:55 Auto Lymphoc 02-21-2 23.4 % 24.0-44 complet ytes 017 .0 ed NFr Bld 10:55 Auto Neutrop -21-2 66.3 % 41.0-71 complet hils 017 .0 ed NFr Bld 10:55 Auto Platele 02-21-2 225 150-450 complet t # Bld 017 10*3/mm ed Auto 10:55 3 PMV Bld -21-2 11.6 fL 6.0-12. complet Auto 017 0 ed 10:55 RDW RBC -21-2 51.8 fl 37.0-54 complet Auto 017 .0 ed 10:55 RDW RBC 02-21-2 15.6 % 11.3-14 complet 017 .5 ed Auto-Rt 10:55 o MCHC -21-2 33.3 32.0-36 complet RBC 017 g/dL .0 ed Auto-mC 10:55 nc MCH RBC -21-2 30.8 pg 27.0-31 complet Qn 017 .0 ed Auto 10:55 MCV RBC 02-21-2 92.3 fL 80.0-99 complet Auto 017 .0 ed 10:55 Hct VFr -21-2 33.6 % 34.5-44 complet Bld 017 .0 ed Auto 10:55 Hgb 02-21-2 11.2 11.5-15 complet Bld-mCn 017 g/dL .5 ed c 10:55 RBC # -21-2 3.64 3.89-5. complet Bld 017 10*6/mm 14 ed Auto 10:55 3 WBC 06-24-2 10.32 3.50-10 complet nRBC 017 10*3/mm .80 ed cor # 10:55 3 Bld Drugs Ur Scn (06-03-2016 14:44) Cannabi [id number] Negativ complet noids 017 09 e ed SerPl 14:44 Negativ Ql e SCT Bupreno [id number] Negativ complet rphine 017 09 e ed SerPl-m 14:44 Negativ Cnc e SCT Propoxy [id number] Negativ complet ph Ur 017 09 e ed Ql 14:44 Negativ e SCT Oxycodo [id number] Negativ complet ne Ur 017 09 e ed Ql Scn 14:44 Negativ e SCT Barbitu [id number] Negativ complet rates 017 09 e ed Ur Ql 14:44 Negativ Scn e SCT Methado [id number] Negativ complet ne Ur 017 09 e ed Ql Scn 14:44 Negativ e SCT Tricycl [id number] Negativ complet ics Ur 017 09 e ed Ql Scn 14:44 Negativ e SCT Benzodi [id number] Negativ complet az Ur 017 09 e ed Ql Scn 14:44 Negativ e SCT Amphet+ [id number] Negativ complet Methamp 017 09 e ed het Ur 14:44 Negativ Ql e SCT Opiates [id number] Negativ complet Ur Ql 017 09 e ed 14:44 Negativ e SCT Ampheta [id number] Negativ complet mines 017 09 e ed Ur Ql 14:44 Negativ e SCT Cocaine [id number] Negativ complet Ur Ql 017 09 e ed 14:44 Negativ e SCT PCP Ur [id number] Negativ complet Ql Scn 017 09 e ed 14:44 Negativ e SCT CBC (hemogram) Bld Auto (06-02-2016 16:50) Platele 253 150-450 complet t # Bld 017 10*3/mm ed Auto 16:50 3 PMV Bld 12.4 fL 6.0-12. complet Auto 017 0 ed 16:50 RDW RBC 48.8 fl 37.0-54 complet Auto 017 .0 ed 16:50 RDW RBC 14.4 % 11.3-14 complet 017 .5 ed Auto-Rt 16:50 o MCHC 33.6 32.0-36 complet RBC 017 g/dL .0 ed Auto-mC 16:50 nc MCH RBC 31.2 pg 27.0-31 complet Qn 017 .0 ed Auto 16:50 MCV RBC 92.7 fL 80.0-99 complet Auto 017 .0 ed 16:50 Hct VFr 36.9 % 34.5-44 complet Bld 017 .0 ed Auto 16:50 Hgb 12.4 11.5-15 complet Bld-mCn 017 g/dL .5 ed c 16:50 RBC # 3.98 3.89-5. complet Bld 017 10*6/mm 14 ed Auto 16:50 3 WBC 9.59 3.50-10 complet nRBC 017 10*3/mm .80 ed cor # 16:50 3 Bld Comp Metab 1997 Pnl SerPl (06-02-2016 16:50) Anion 10.0 3.0-11. complet Gap3 017 mmol/L 0 ed SerPl-s 16:50 Cnc BUN/Cre 17.1 7.0-25. complet at 017 0 ed SerPl 16:50 Albumin 1.3 1.5-2.5 complet /Glob 017 g/dL ed SerPl 16:50 Globuli 3.0 complet n Ur 017 gm/dL ed Elph-mC 16:50 nc GFR/BSA 101 >60 complet .pred 017 mL/min/ ed SerPl 16:50 1.73 MDRD-Ar VRat Bilirub 0.3 0.3-1.2 complet 017 mg/dL ed SerPl-m 16:50 Cnc ALP 112 U/L 25-100 complet SerPl-c 017 ed Cnc 16:50 AST 18 U/L 0-33 complet SerPl-c 017 ed Cnc 16:50 ALT 12 U/L 7-40 complet SerPl w 017 ed 16:50 P-5'-P- cCnc Albumin 4.00 3.20-4. complet 017 g/dL 80 ed SerPl-m 16:50 Cnc Prot 7.0 5.7-8.2 complet SerPl-m 017 g/dL ed Cnc 16:50 Calcium 9.9 8.7-10. complet 017 mg/dL 4 ed XXX-sCn 16:50 c CO2 22.0 20.0-31 complet SerPl-s 017 mmol/L .0 ed Cnc 16:50 Chlorid 103 99-109 complet e 017 mmol/L ed SerPl-s 16:50 Cnc Potassi 3.8 3.5-5.5 complet um 017 mmol/L ed Bld-sCn 16:50 c Sodium 135 132-146 complet Bld-sCn 017 mmol/L ed c 16:50 Creat 0.70 0.60-1. complet Bld-mCn 017 mg/dL 30 ed c 16:50 BUN 12 9-23 complet Bld-mCn 017 mg/dL ed c 16:50 Glucose 79 70-100 complet 017 mg/dL ed Bld-mCn 16:50 c UA Dipstick Pnl Ur (01-28-2016 19:47) Urobili 0.2 0.2 complet nogen 016 E.U./dL E.U./dL ed Ur Ql 19:47 , 1.0 Strip E.U./dL Nitrite [id number] Negativ complet Ur Ql 016 09 e ed Strip 19:47 Negativ e SCT Leukocy [id number] Negativ complet te 016 09 e ed esteras 19:47 Negativ e Ur Ql e SCT Strip.a uto Prot Ur [id number] Negativ complet Ql 016 09 e ed Strip 19:47 Negativ e SCT Hgb Ur [id number] Negativ complet Ql 016 09 e ed Strip.a 19:47 Negativ uto e SCT Bilirub [id number] Negativ complet Ur Ql 016 09 e ed Strip 19:47 Negativ e SCT Ketones [id number] Negativ complet Ur Ql 016 06 e ed Strip 19:47 Trace SCT Glucose [id number] Negativ complet Ur 016 09 e ed Strip-m 19:47 Negativ Cnc e SCT Sp Gr 1.015 1.005-1 complet Ur 016 .030 ed Strip 19:47 pH Ur 5.5 5.0-8.0 complet Strip.a 016 ed uto 19:47 Clarity [id number] Clear complet Ur 016 01 ed 19:47 Clear SCT Color [id number] Yellow, complet Ur 016 09 Straw ed 19:47 Yellow color SCT Comp Metab 1998 Pnl SerPl (01-28-2016 19:07) Anion 7.0 3.0-11. complet Gap3 016 mmol/L 0 ed SerPl-s 19:07 Cnc BUN/Cre 15.0 7.0-25. complet at 016 0 ed SerPl 19:07 Albumin 1.3 complet /Glob 016 g/dL ed SerPl 19:07 Globuli 3.1 complet n Ur 016 gm/dL ed Elph-mC 19:07 nc GFR/BSA 121 >60 complet .pred 016 mL/min/ ed SerPl 19:07 1.73 MDRD-Ar VRat Bilirub 0.2 0.3-1.2 complet 016 mg/dL ed SerPl-m 19:07 Cnc ALP 64 U/L 25-100 complet SerPl-c 016 ed Cnc 19:07 AST 21 U/L 0-33 complet SerPl-c 016 ed Cnc 19:07 ALT 09-26-2 15 U/L 7-40 complet SerPl w 016 ed 19:07 P-5'-P- cCnc Albumin 4.00 3.20-4. complet 016 g/dL 80 ed SerPl-m 19:07 Cnc Prot 7.1 5.7-8.2 complet SerPl-m 016 g/dL ed Cnc 19:07 Calcium 9.0 8.7-10. complet 016 mg/dL 4 ed XXX-sCn 19:07 c CO2 24.0 20.0-31 complet SerPl-s 016 mmol/L .0 ed Cnc 19:07 Chlorid 105 99-109 complet e 016 mmol/L ed SerPl-s 19:07 Cnc Potassi 3.8 3.5-5.5 complet um 016 mmol/L ed Bld-sCn 19:07 c Sodium 136 132-146 complet Bld-sCn 016 mmol/L ed c 19:07 Creat 0.60 0.60-1. complet Bld-mCn 016 mg/dL 30 ed c 19:07 BUN 9 mg/dL 9-23 complet Bld-mCn 016 ed c 19:07 Glucose 77 70-100 complet 016 mg/dL ed Bld-mCn 19:07 c CBC (hemogram) Bld Auto (01-28-2016 18:28) Platele 281 150-450 complet t # Bld 016 10*3/mm ed Auto 18:28 3 PMV Bld 10.7 fL 6.0-12. complet Auto 016 0 ed 18:28 RDW RBC 46.4 fl 37.0-54 complet Auto 016 .0 ed 18:28 RDW RBC 13.7 % 11.3-14 complet 016 .5 ed Auto-Rt 18:28 o MCHC 33.8 32.0-36 complet RBC 016 g/dL .0 ed Auto-mC 18:28 nc MCH RBC 31.4 pg 27.0-31 complet Qn 016 .0 ed Auto 18:28 MCV RBC 93.0 fL 80.0-99 complet Auto 016 .0 ed 18:28 Hct VFr 35.8 % 34.5-44 complet Bld 016 .0 ed Auto 18:28 Hgb 12.1 11.5-15 complet Bld-mCn 016 g/dL .5 ed c 18:28 RBC # 3.85 3.89-5. complet Bld 016 10*6/mm 14 ed Auto 18:28 3 WBC 10.79 3.50-10 complet nRBC 016 10*3/mm .80 ed cor # 18:28 3 Bld UA Microscopic Pnl # Ur Auto (01-28-2016 17:44) Ref lab Manual complet test 016 Light ed method 17:44 Microsc opy Squamou 13-20 None complet s 016 /HPF Seen, ed #/area 17:44 0-2 UrnS HPF UA Dipstick Pnl Ur (01-28-2016 17:44) Urobili 0.2 0.2 complet nogen 016 E.U./dL E.U./dL ed Ur Ql 17:44 , 1.0 Strip E.U./dL Nitrite [id number] Negativ complet Ur Ql 016 09 e ed Strip 17:44 Negativ e SCT Leukocy [id number] Negativ complet te 016 09 e ed esteras 17:44 Negativ e Ur Ql e SCT Strip.a uto Prot Ur 30 Negativ complet Ql 016 mg/dL e ed Strip 17:44 (1+) Hgb Ur [id number] Negativ complet Ql 016 01 e ed Strip.a 17:44 Large uto SCT Bilirub [id number] Negativ complet Ur Ql 016 09 e ed Strip 17:44 Negativ e SCT Ketones [id number] Negativ complet Ur Ql 016 09 e ed Strip 17:44 Negativ e SCT Glucose [id number] Negativ complet Ur 016 09 e ed Strip-m 17:44 Negativ Cnc e SCT Sp Gr >= 1.005-1 complet Ur 016 1.030 .030 ed Strip 17:44 pH Ur <= 5.0 5.0-8.0 complet Strip.a 016 ed uto 17:44 Clarity [id number] Clear complet Ur 016 02 ed 17:44 Turbid SCT Color [id number] Yellow, complet Ur 016 00 Red Straw ed 17:44 color SCT Bacteria Ur Cult (01-28-2016 17:44) Bacteri No complet a XXX 016 growth ed Aerobe 17:44 at 2 Cult days URINALYSIS COMPLETE (05-09-2014 21:41) BACTERI 05-09-2 NEGATIV NEGATIV complet A COUNT 015 E /HPF E ed 21:41 HYALINE 05-09-2 2 /LPF 0-4 complet CAST 015 ed 21:41 EPITHEL 06-2 3 /HPF 0-6 complet IAL 015 ed CELL 21:41 COUNT WBC 06-2 0 /HPF 0-5 complet COUNT 015 ed 21:41 RBC 06-2 1 /HPF 0-4 complet COUNT 015 ed 21:41 LEUKOCY 06-2 NEGATIV NEGATIV complet ROBERT 015 E E ed 21:41 NITRITE 06-2 NEGATIV NEGATIV complet 015 E E ed 21:41 UROBILI 06-2 0.2 0.2-1.0 complet NOGEN 015 E.U./DL ed 21:41 PROTEIN 06-2 NEGATIV NEGATIV complet 015 E MG/DL E ed 21:41 PH 05-09-2 5.5 5.0-9.0 complet 015 ed 21:41 BLOOD 06-2 NEGATIV NEGATIV complet 015 E E ed 21:41 SPECIFI 05-09-2 1.018 1.006-1 complet C 015 .035 ed GRAVITY 21:41 KETONE 06-2 NEGATIV NEGATIV complet 015 E MG/DL E ed 21:41 BILIRUB 05-09-2 NEGATIV NEGATIV complet IN 015 E E ed 21:41 GLUCOSE 06-2 NEGATIV NEGATIV complet 015 E MG/DL E ed 21:41 CLARITY 05-09-2 CLEAR complet 015 ed 21:41 COLOR 01-06-2 YELLOW complet 015 ed 21:41 URINE HCG (05-09-2014 21:41) URINE NEGATIV complet HCG 015 E ed 21:41 GLOMELULAR PABLO. RATE,CALC. (05-09-2014 21:40) GLOMELU 175.1 60.0-13 complet LAR 015 ml/min 0.0 ed PABLO. 21:40 RATE,CA LC. COMP. METABOLIC PANEL (CHEM 12) (05-09-2014 21:40) BILIRUB 0.30 0.00-1. complet IN, 015 MG/DL 00 ed TOTAL 21:40 ALT 23 U/L 12-78 complet 015 ed 21:40 AST 27 U/L 15-37 complet 015 ed 21:40 ALKALIN 64 U/L 45-117 complet E 015 ed PHOSPHA 21:40 TASE CALCIUM 8.9 8.5-10. complet 015 MG/DL 1 ed 21:40 A/G 1.0 0.6-1.6 complet RATIO 015 ed 21:40 GLOBULI 4.3 2.4-4.8 complet N 015 G/DL ed 21:40 ALBUMIN 4.1 3.4-5.0 complet 015 G/DL ed 21:40 PROTEIN 8.4 6.4-8.4 complet , TOTAL 015 G/DL ed 21:40 CREATIN 0.6 0.6-1.3 complet INE 015 MG/DL ed 21:40 CO2 26 21-32 complet 015 mmol/L ed 21:40 CHLORID 103 98-107 complet E 015 mmol/l ed 21:40 POTASSI 4.0 3.6-5.2 complet UM 015 mmol/l ed 21:40 SODIUM 133 133-144 complet 015 mmol/L ed 21:40 BUN 14 7-18 complet 015 MG/DL ed 21:40 GLUCOSE 87 70-110 complet 015 MG/DL ed 21:40 LIPASE (05-09-2014 21:40) LIPASE 80 U/L 73-393 complet 015 ed 21:40 AMYLASE (05-09-2014 21:40) AMYLASE 70 U/L 25-115 complet 015 ed 21:40 CBC\\T\\AUTO DIFF (05-09-2014 21:40) WBC 8.6 3.0-11. complet 015 K/UL 3 ed 21:40 BASO# 06-2 0.0 0.0-0.2 complet 015 K/ul ed 21:40 EOS# 06-2 0.1 0.0-0.9 complet 015 K/ul ed 21:40 MONOS# 06-2 0.4 0.2-0.6 complet 015 K/ul ed 21:40 LYMPH# 06-2 2.9 0.4-3.9 complet 015 K/ul ed 21:40 NEUT # 05-09-2 5.1 2.7-6.9 complet 015 K/ul ed 21:40 BASO% 05-09-2 0.2 % 0.0-2.0 complet 015 ed 21:40 EOS% 05-09-2 0.7 % 0.0-11. complet 015 0 ed 21:40 MONOS% 05-09-2 5.2 % 1.0-14. complet 015 0 ed 21:40 LYMPH% 05-09-2 34.3 % 10.0-42 complet 015 .0 ed 21:40 NEUTROP 05-09- 59.6 % 43.0-83 complet HILS% 015 .0 ed 21:40 MPV 8.9 fl 6.4-10. complet 015 4 ed 21:40 PLATELE 274 122-454 complet T 015 K/UL ed 21:40 RDW 14.2 % 10.1-16 complet 015 .2 ed 21:40 MCHC 33.4 32.5-35 complet 015 g/dl .3 ed 21:40 MCH 31.8 pg 26.4-33 complet 015 .3 ed 21:40 MCV 95.2 fl 78.2-10 complet 015 1.8 ed 21:40 HCT 42.7 % 29.9-45 complet 015 .5 ed 21:40 HGB 14.3 10.0-16 complet 015 gm/dl .0 ed 21:40 RBC 4.490 3.450-5 complet 015 M/ul .400 ed 21:40 GLOMELULAR PABLO. RATE,CALC. (03-28-2014 03:43) Comment: Physician [...] eGFR IS AN ESTIMATED GLOMELULAR FILTRATION RATE PHOSPHOROUS (03-28-2014 03:43) Comment: Physician is not a [employer]ician's Portal User PHOSPHO 2.9 2.5-4.9 complet SADIQ 014 MG/DL ed 03:43 MAGNESIUM (03-28-2014 03:43) Comment: Physician is not a Physician's Portal User MAGNESI 1.6 1.7-2.4 complet UM 014 MG/DL ed 03:43 BASIC METABOLIC PANEL (CHEM 7) (03-28-2014 03:43) Comment: Physician is not a Physician's Portal User CALCIUM 8.5 8.5-10. complet 014 MG/DL 1 ed 03:43 CREATIN 0.8 0.6-1.3 complet INE 014 MG/DL ed 03:43 CO2 27 21-32 complet 014 mmol/L ed 03:43 CHLORID 107 98-107 complet E 014 mmol/l ed 03:43 POTASSI 11-25-2 4.1 3.6-5.2 complet UM 014 mmol/l ed 03:43 SODIUM 11-25-2 138 133-144 complet 014 mmol/L ed 03:43 BUN 11-25-2 9 MG/DL 7-18 complet 014 ed 03:43 GLUCOSE 11-25-2 93 70-110 complet 014 MG/DL ed 03:43 UR IN HOUSE DRUG SCREEN (03-27-2014 14:30) Comment: NO; Physician is not a Physician's Portal User URINE 11-24-2 NEG NEGATIV complet METHADO 014 [...] METHADONE CUT OFF CONCENTRATION - 300 URINE 11-24-2 NEG NEGATIV complet CANNABI 014 NG/ML E ed NOIDS 14:30 Comment: THC CUT OFF CONCENTRATION - 50 URINE 11-24-2 POS NEGATIV complet OPIATES 014 ug/ML E ed 14:30 Comment: OPIATE CUT OFF CONCENTRATION - 300 URINE 11-24-2 NEG NEGATIV complet COCAINE 014 ug/ML E ed 14:30 Comment: COCAINE CUT OFF CONCENTRATION - 300 URINE 11-24-2 POS NEGATIV complet BENZODI 014 ug/ML E ed AZEPINE 14:30 S Comment: BENZODIAZEPINE CUT OFF CONCENTRATION - 200 URINE 11-24-2 NEG NEGATIV complet BARBITU 014 ug/ML E ed RATES 14:30 Comment: BARBITUATE CUT OFF CONCENTRATION - 200 URINE 11-24-2 NEG NEGATIV complet AMPHETA 014 ug/ML E ed MINES 14:30 Comment: AMPHETAMINE CUT OFF CONCENTRATION - 300 UA, MICROSCOPIC REVIEW (03-26-2014 18:00) BACTERI 11-23-2 3+ HPF Absent complet A 014 ed 18:00 MUCOUS 11-23-2 1+ complet 014 ed 18:00 EPITHEL 11-23-2 10-15 complet IAL 014 HPF ed CELLS 18:00 WBC 11-23-2 5-10 0-5 complet 014 HPF ed 18:00 RBC 11-23-2 0-5 HPF 0-5 complet 014 ed 18:00 URINE HCG (03-26-2014 18:00) URINE 11-23-2 NEGATIV complet HCG 014 E ed 18:00 URINALYSIS COMPLETE (03-26-2014 18:00) LEUKOCY 11-23-2 SMALL NEGATIV complet ROBERT 014 E ed 18:00 NITRITE 11-23-2 NEGATIV NEGATIV complet 014 E E ed 18:00 UROBILI 11-23-2 0.2 0.2-1.0 complet NOGEN 014 E.U./DL ed 18:00 PROTEIN 11-23-2 NEGATIV NEGATIV complet 014 E MG/DL E ed 18:00 PH 11-23-2 6.5 5.0-9.0 complet 014 ed 18:00 BLOOD 11-23-2 NEGATIV NEGATIV complet 014 E E ed 18:00 SPECIFI 11-23-2 1.015 1.006-1 complet C 014 .035 ed GRAVITY 18:00 KETONE 11-23-2 NEGATIV NEGATIV complet 014 E MG/DL E ed 18:00 BILIRUB 11-23-2 NEGATIV NEGATIV complet IN 014 E E ed 18:00 GLUCOSE 11-23-2 NEGATIV NEGATIV complet 014 E MG/DL E ed 18:00 CLARITY 11-23-2 CLOUDY complet 014 ed 18:00 COLOR 11-23-2 YELLOW complet 014 ed 18:00 AMYLASE (03-26-2014 17:48) AMYLASE 11-23-2 58 U/L 25-115 complet 014 ed 17:48 GLOMELULAR PABLO. RATE,CALC. (03-26-2014 17:48) GLOMELU 11-23-2 125.8 60.0-13 complet LAR 014 ml/min 0.0 [...] eGFR IS AN ESTIMATED GLOMELULAR FILTRATION RATE COMP. METABOLIC PANEL (CHEM 12) (03-26-2014 17:48) BUN 11-23-2 10 7-18 complet 014 MG/DL ed 17:48 PROTEIN 11-23-2 7.9 6.4-8.4 complet , TOTAL 014 G/DL ed 17:48 ALKALIN -23-2 67 U/L 45-117 complet E 014 ed PHOSPHA 17:48 TASE CALCIUM -23-2 9.1 8.5-10. complet 014 MG/DL 1 ed 17:48 A/G 11-23-2 1.0 0.6-1.6 complet RATIO 014 ed 17:48 GLOBULI -23-2 4.0 2.4-4.8 complet N 014 G/DL ed 17:48 BILIRUB -23-2 0.30 0.00-1. complet IN, 014 MG/DL 00 ed TOTAL 17:48 ALT 11-23-2 20 U/L 12-78 complet 014 ed 17:48 AST 11-23-2 27 U/L 15-37 complet 014 ed 17:48 Comment: Specimen slightly hemolyzed. Results may be falsely elevated. CREATIN 11-23-2 0.8 0.6-1.3 complet INE 014 MG/DL ed 17:48 CO2 11-23-2 26 21-32 complet 014 mmol/L ed 17:48 CHLORID -23-2 104 98-107 complet E 014 mmol/l ed 17:48 POTASSI 11-23-2 4.3 3.6-5.2 complet UM 014 mmol/l ed 17:48 Comment: Specimen slightly hemolyzed. Results may be falsely elevated. SODIUM -23-2 136 133-144 complet 014 mmol/L ed 17:48 ALBUMIN -23-2 3.9 3.4-5.0 complet 014 G/DL ed 17:48 GLUCOSE -23-2 80 70-110 complet 014 MG/DL ed 17:48 LIPASE (03-26-2014 17:48) LIPASE 11-23-2 77 U/L 73-393 complet 014 ed 17:48 CBC\\T\\AUTO DIFF (03-26-2014 17:48) NEUT # 11-23-2 6.7 2.7-6.9 complet 014 K/ul ed 17:48 PLATELE 11-23-2 283 122-454 complet T 014 K/UL ed 17:48 RDW 11-23-2 14.3 % 10.1-16 complet 014 .2 ed 17:48 MCHC 11-23-2 33.3 32.5-35 complet 014 g/dl .3 ed 17:48 MCH 11-23-2 31.2 pg 26.4-33 complet 014 .3 ed 17:48 MCV 11-23-2 93.6 fl 78.2-10 complet 014 1.8 ed 17:48 HCT 11-23-2 39.0 % 29.9-45 complet 014 .5 ed 17:48 HGB 11-23-2 13.0 10.0-16 complet 014 gm/dl .0 ed 17:48 RBC 11-23-2 4.170 3.450-5 complet 014 M/ul .400 ed 17:48 WBC 11-23-2 10.1 3.0-11. complet 014 K/UL 3 ed 17:48 EOS% 11-23-2 0.7 % 0.0-11. complet 014 0 ed 17:48 MONOS% 11-23-2 6.4 % 1.0-14. complet 014 0 ed 17:48 LYMPH% 11-23-2 26.7 % 10.0-42 complet 014 .0 ed 17:48 NEUTROP 11-23-2 65.9 % 43.0-83 complet HILS% 014 .0 ed 17:48 MPV 11-23-2 9.1 fl 6.4-10. complet 014 4 ed 17:48 LYMPH# 11-23-2 2.7 0.4-3.9 complet 014 K/ul ed 17:48 BASO% 11-23-2 0.3 % 0.0-2.0 complet 014 ed 17:48 EOS# 11-23-2 0.1 0.0-0.9 complet 014 K/ul ed 17:48 MONOS# 11-23-2 0.6 0.2-0.6 complet 014 K/ul ed 17:48 BASO# 03-26-2 0.0 0.0-0.2 complet 014 K/ul ed 17:48 CBC/NO DIFF+ PLATELET (03-24-2014 08:35) HGB 03-24-2 12.1 10.0-16 complet 014 gm/dl .0 ed 08:35 RBC 03-24-2 3.870 3.450-5 complet 014 M/ul .400 ed 08:35 MPV 03-24-2 9.7 fl 6.4-10. complet 014 4 ed 08:35 PLATELE 218 122-454 complet T 014 K/UL ed 08:35 RDW 14.9 % 10.1-16 complet 014 .2 ed 08:35 MCHC 03-24-2 33.2 32.5-35 complet 014 g/dl .3 ed 08:35 MCH 03-24-2 31.4 pg 26.4-33 complet 014 .3 ed 08:35 MCV 03-24- 94.5 fl 78.2-10 complet 014 1.8 ed 08:35 HCT 03-24-2 36.5 % 29.9-45 complet 014 .5 ed 08:35 WBC 03-24- 9.6 3.0-11. complet 014 K/UL 3 ed 08:35 GLOMELULAR PABLO. RATE,CALC. (03-24-2014 08:35) GLOMELU 125.8 60.0-13 complet LAR 014 ml/min 0.0 ed PABLO. 08:35 RATE,CA LC. PHOSPHOROUS (03-24-2014 08:35) PHOSPHO 03-24- 2.7 2.5-4.9 complet SADIQ 014 MG/DL ed 08:35 MAGNESIUM (03-24-2014 08:35) MAGNESI 03-24- 1.9 1.7-2.4 complet UM 014 MG/DL ed 08:35 BASIC METABOLIC PANEL (CHEM 7) (03-24-2014 08:35) CALCIUM 03-24- 8.0 8.5-10. complet 014 MG/DL 1 ed 08:35 CO2 03-24-2 26 21-32 complet 014 mmol/L ed 08:35 BUN 03-24-2 10 7-18 complet 014 MG/DL ed 08:35 GLUCOSE 03-24-2 99 70-110 complet 014 MG/DL ed 08:35 POTASSI 03-24-2 4.0 3.6-5.2 complet UM 014 mmol/l ed 08:35 SODIUM 03-24-2 139 133-144 complet 014 mmol/L ed 08:35 CREATIN 03-24-2 0.8 0.6-1.3 complet INE 014 MG/DL ed 08:35 CHLORID 03-24- 108 98-107 complet E 014 mmol/l ed 08:35 GLOMELULAR PABLO. RATE,CALC. (03-23-2014 10:50) GLOMELU 03-23- 125.8 60.0-13 complet LAR 014 ml/min 0.0 ed PABLO. 10:50 RATE,CA LC. PHOSPHOROUS (03-23-2014 10:50) PHOSPHO 2.5 2.5-4.9 complet SADIQ 014 MG/DL ed 10:50 MAGNESIUM (03-23-2014 10:50) MAGNESI 03-23- 1.5 1.7-2.4 complet UM 014 MG/DL ed 10:50 BASIC METABOLIC PANEL (CHEM 7) (03-23-2014 10:50) CHLORID 03-23- 110 98-107 complet E 014 mmol/l ed 10:50 GLUCOSE 118 70-110 complet 014 MG/DL ed 10:50 POTASSI 03-23- 3.9 3.6-5.2 complet UM 014 mmol/l ed 10:50 SODIUM 139 133-144 complet 014 mmol/L ed 10:50 BUN 03-23-2 9 MG/DL 7-18 complet 014 ed 10:50 CALCIUM 03-23-2 8.1 8.5-10. complet 014 MG/DL 1 ed 10:50 CREATIN 03-23-2 0.8 0.6-1.3 complet INE 014 MG/DL ed 10:50 CO2 03-23-2 26 21-32 complet 014 mmol/L ed 10:50 CBC/NO DIFF+ PLATELET (03-23-2014 10:50) RDW 15.3 % 10.1-16 complet 014 .2 ed 10:50 MCHC 33.0 32.5-35 complet 014 g/dl .3 ed 10:50 MCH 11-20-2 31.1 pg 26.4-33 complet 014 .3 ed 10:50 MCV 11-20-2 94.2 fl 78.2-10 complet 014 1.8 ed 10:50 HCT 11-20-2 37.0 % 29.9-45 complet 014 .5 ed 10:50 HGB 11-20-2 12.2 10.0-16 complet 014 gm/dl .0 ed 10:50 RBC 11-20-2 3.930 3.450-5 complet 014 M/ul .400 ed 10:50 MPV 11-20-2 9.4 fl 6.4-10. complet 014 4 ed 10:50 PLATELE 11-20-2 233 122-454 complet T 014 K/UL ed 10:50 WBC 11-20-2 11.1 3.0-11. complet 014 K/UL 3 ed 10:50 URINE HCG (03-23-2014 05:00) URINE 11-20-2 NEGATIV complet HCG 014 E ed 05:00 URINALYSIS COMPLETE (03-23-2014 05:00) HYALINE 11-20-2 3 /LPF 0-4 complet CAST 014 ed 05:00 BACTERI 11-20-2 TRACE NEGATIV complet A COUNT 014 /HPF E ed 05:00 EPITHEL 11-20-2 19 /HPF 0-6 complet IAL 014 ed CELL 05:00 COUNT WBC 11-20-2 2 /HPF 0-5 complet COUNT 014 ed 05:00 RBC 11-20-2 1 /HPF 0-4 complet COUNT 014 ed 05:00 LEUKOCY 11-20-2 NEGATIV NEGATIV complet ROBERT 014 E E ed 05:00 NITRITE 11-20-2 NEGATIV NEGATIV complet 014 E E ed 05:00 UROBILI 11-20-2 0.2 0.2-1.0 complet NOGEN 014 E.U./DL ed 05:00 PROTEIN 11-20-2 NEGATIV NEGATIV complet 014 E MG/DL E ed 05:00 PH 11-20-2 6.0 5.0-9.0 complet 014 ed 05:00 BLOOD 11-20-2 NEGATIV NEGATIV complet 014 E E ed 05:00 SPECIFI 11-20-2 1.070 1.006-1 complet C 014 .035 ed GRAVITY 05:00 KETONE NEGATIV NEGATIV complet 014 E MG/DL E ed 05:00 BILIRUB NEGATIV NEGATIV complet IN 014 E E ed 05:00 GLUCOSE NEGATIV NEGATIV complet 014 E MG/DL E ed 05:00 CLARITY CLEAR complet 014 ed 05:00 COLOR YELLOW complet 014 ed 05:00 I-CHEMISTRY 8+ PANEL (03-22-2014 15:13) I-SODIU 140 138-146 complet M 014 mmol/L ed 15:13 I-HEMOG 13.3 12.0-17 complet LOBIN 014 gm/dl .0 ed 15:13 I-GLUCO 82 70-105 complet SE 014 MG/DL ed 15:13 I-IONIZ 1.17 1.12-1. complet ED CA 014 mmol/L 32 ed 15:13 I-ANION 16 10-20 complet GAP 014 mmol/L ed 15:13 I-K+ 4.2 3.5-4.9 complet 014 mmol/L ed 15:13 I-HEMAT 39 % 38-51 complet OCRIT 014 ed 15:13 I-CREAT 1.0 0.6-1.3 complet ININE 014 mg/dl ed 15:13 I-BUN 12 8-26 complet 014 MG/DL ed 15:13 I-CHLOR 104 98-109 complet NADIA 014 mmol/L ed 15:13 I-TCO2 26 23-27 complet 014 mmol/L ed 15:13 CBC\\T\\AUTO DIFF (03-22-2014 15:09) WBC 03-22- 6.7 3.0-11. complet 014 K/UL 3 ed 15:09 MONOS# 03-22-2 0.6 0.2-0.6 complet 014 K/ul ed 15:09 LYMPH# 03-22-2 2.3 0.4-3.9 complet 014 K/ul ed 15:09 NEUT # 03-22-2 3.7 2.7-6.9 complet 014 K/ul ed 15:09 BASO% 11-19-2 0.8 % 0.0-2.0 complet 014 ed 15:09 BASO# 11-19-2 0.1 0.0-0.2 complet 014 K/ul ed 15:09 EOS# 11-19-2 0.1 0.0-0.9 complet 014 K/ul ed 15:09 PLATELE 03-22-2 235 122-454 complet T 014 K/UL ed 15:09 RDW 19-2 14.8 % 10.1-16 complet 014 .2 ed 15:09 MCHC 19-2 33.0 32.5-35 complet 014 g/dl .3 ed 15:09 MCH 11-19-2 31.1 pg 26.4-33 complet 014 .3 ed 15:09 MCV 03-22-2 94.3 fl 78.2-10 complet 014 1.8 ed 15:09 HCT 03-22-2 38.6 % 29.9-45 complet 014 .5 ed 15:09 HGB 03-22-2 12.8 10.0-16 complet 014 gm/dl .0 ed 15:09 RBC 19-2 4.100 3.450-5 complet 014 M/ul .400 ed 15:09 EOS% 11-19-2 1.3 % 0.0-11. complet 014 0 ed 15:09 MONOS% 11-19-2 8.7 % 1.0-14. complet 014 0 ed 15:09 LYMPH% -19-2 33.7 % 10.0-42 complet 014 .0 ed 15:09 NEUTROP 11-19-2 55.5 % 43.0-83 complet HILS% 014 .0 ed 15:09 MPV 19-2 8.8 fl 6.4-10. complet 014 4 ed 15:09 [facility] (UA W MICRO AND CULTURE) (05-13-2012 00:54) [...] 013 E E ed SCREEN 00:54 METHADO 05-13- NEGATIV NEGATIV Normal complet NE 013 E E ed SCREEN 00:54 COCAINE 05-13- NEGATIV NEGATIV Normal complet SCREEN 013 E E ed 00:54 BENZODI NEGATIV NEGATIV Normal complet AZEPINE 013 E E ed SCREEN 00:54 AMPHETA 05-13- NEGATIV NEGATIV Normal complet MINE 013 E E ed SCREEN 00:54 PHENCYC 05-13- NEGATIV NEGATIV Normal complet LIDINE 013 E E ed SCREEN 00:54 BARBITU 05-13- POSITIV NEGATIV Abnorma complet RATE 013 E E l ed SCREEN 00:54 Comment: This test is for Medical Purpose Only. Chain of Custody is Comment: required for drug testing for legal use. METHAQU NEGATIV NEGATIV Normal complet ALONE 013 E E ed SCR 00:54 OXYCODO 05-13- NEGATIV NEGATIV Normal complet NE SCR 013 E E ed 00:54 OPIATE NEGATIV NEGATIV Normal complet SCREEN 013 E E ed 00:54 LIPASE (05-13-2012 00:25) LIPASE 21 u/L 13-60 Normal complet 013 ed [...] complet INE 013 mg/dL ed 00:25 BLOOD 2 10.0 6-20 Normal complet UREA 013 mg/dL ed NITROGE 00:25 N ANION 05-13-2 16 8-16 Normal complet GAP 013 ed 00:25 CARBON 2 18 22-29 Below complet DIOXIDE 013 mmol/L low ed 00:25 normal CHLORID 2 102.0 98-107 Normal complet E 013 mmol/L ed 00:25 POTASSI 2 3.8 3.5-5.1 Normal complet UM 013 mmol/L ed 00:25 CBC WITH AUTO DIFF REFLEX (05-13-2012 00:25) MEAN 7.9 fL 6.0-10. Normal complet PLATELE 013 0 ed T 00:25 VOLUME PLATELE 271 x10 130-400 Normal complet T COUNT 013 3 ed 00:25 RDW 2 14.6 % 11.5-14 Above complet 013 .5 high ed 00:25 normal MCHC 2 31.5 32-36 Below complet 013 g/dL low ed 00:25 normal MCH 2 29.8 pg 27-31 Normal complet 013 ed 00:25 MCV 05-13-2 94.7 fL 81-99 Normal complet 013 ed 00:25 HEMATOC 05-13-2 43.4 % 37.0-47 Normal complet RIT 013 .0 ed 00:25 HEMOGLO 2 13.7 12.0-16 Normal complet BIN 013 g/dL .0 ed 00:25 RED 05-13-2 4.58 X 4.20-5. Normal complet BLOOD 013 10 6 40 ed COUNT 00:25 WBC 05-13-2 8.5 X 4.8-10. Normal complet (WHITE 013 10 3 8 ed BLOOD 00:25 CELL) EOSINOP 10-2 0.1 X 0.0-0.5 Normal complet HILS # 013 10 3 ed (AUTO) 00:25 MONOCYT 10-2 0.5 X 0.3-0.9 Normal complet ES # 013 10 3 ed (AUTO) 00:25 LYMPHOC -10-2 2.5 X 1.0-3.3 Normal complet YTES # 013 10 3 ed (AUTO) 00:25 NEUTROP -10-2 5.2 X [...] 10 3 ed (AUTO) 00:25 NEUTROP 10-2 61.3 % 43.1-74 Normal complet HILS % 013 .8 ed (AUTO) 00:25 Comment: If a manual differential is indicated, submit order within Comment: 48 hours" STREP SCREEN CONFIRMATION (03-22-2012 02:28) [facility] [...] DOS Code Location Performer Comment URNLS DIP 98766 [facility] STICK/TAB INC INC LET RGNT AUTO W/O MICROSCOP Y RADEX 02222 [place] L[facility] ABDOMEN 1 7 MEDICAL [place] [address] [facility] INFUSION 7 [facility] THERAPY/P INC INC ROPHYLAXI S /DX 1ST TO 1 HR THERAPEUT 16573 [facility] IC 7 [facility] INJECTION INC INC IV PUSH EACH NEW DRUG URINE 51476 [facility] TEST INC INC VISUAL COLOR CMPRSN METHS THER 42330 [facility] PROPH/DX 7 [facility] NJX EA INC INC SEQL IV PUSH SBST/DRUG FAC UNCLASSIF J3490 [facility] IED DRUGS 7 [facility] INC INC COMPREHEN 85354 [facility] SIVE 7 [facility] METABOLIC INC INC PANEL DRUG TEST 24783 [facility] PRSMV 7 [facility] QUAL DIR INC INC OPTICAL OBS PER DAY UNCLASSIF J3490 [facility] IED DRUGS 7 [facility] INC INC CULTURE 13325 [facility] BACTERIAL 7 [facility] INC INC QUANTTATI VE COLONY COUNT URINE URINE 02475 [facility] TEST INC INC VISUAL COLOR CMPRSN METHS COLLECTIO 97990 [facility] N VENOUS 7 [facility] BLOOD INC INC VENIPUNCT URE COMPREHEN 19193 [facility] SIVE 7 [facility] METABOLIC INC INC PANEL BLOOD 30567 [facility] COUNT 7 [facility] COMPLETE INC INC AUTO&AUTO DIFRNTL WBC URNLS DIP 84443 [facility] STICK/TAB INC [place] [address] [facility] LORENZ ABDOMEN & 7 MEDICAL PELVIS IMAGING W/[place] [address] [facility] LIPASE 7 [facility] INC INC THERAPEUT 05266 [facility] IC 7 [facility] PROPHYLAC INC INC TIC/DX INJECTION SUBQ/[place] [address] [facility] LIPASE 7 [place] [address] PAT BURGESSUTCHER ABDOMEN & 7 MEDICAL PELVIS IMAGING W/[place] [address] [facility] AMYLASE 7 [facility] INC INC URNLS DIP 49667 [facility] STICK/TAB INC INC LET REAGENT AUTO MICROSCOP Y BLOOD 50857 [facility] COUNT 7 [facility] COMPLETE INC INC AUTO&[place] [address] [facility] INFUSION 7 [facility] THERAPY/P INC INC ROPHYLAXI S /DX 1ST TO 1 HR THERAPEUT 21794 [facility] IC 7 [facility] INJECTION INC INC IV PUSH EACH NEW DRUG URINE 64780 [facility] 7 [facility] TEST INC INC VISUAL COLOR CMPRSN METHS THER 92228 [facility] PROPH/DX 7 [facility] NJX EA INC INC SEQL IV PUSH SBST/DRUG FAC UNCLASSIF J3490 [facility] IED DRUGS 7 [facility] INC INC COMPREHEN 61588 [facility] SIVE 7 [facility] METABOLIC INC INC PANEL COMPREHEN 25790 [facility] SIVE 7 [facility] METABOLIC INC INC PANEL DRUG TEST 00386 [facility] PRSMV 7 [facility] QUAL DIR INC INC OPTICAL OBS PER DAY UNCLASSIF J3490 [facility] IED DRUGS 7 [facility] INC INC URINE 59746 [facility] 7 [facility] TEST INC INC VISUAL COLOR CMPRSN METHS BLOOD 04163 [facility] COUNT 7 [facility] COMPLETE INC INC AUTO&AUTO DIFRNTL WBC RADEX 75624 PAT BURGESSUTCHER ABDOMEN 1 7 MEDICAL IMAGING ANTEROPOS ASS TERIOR VIEW THERAPEUT 52573 [facility] IC 7 [facility] PROPHYLAC INC INC TIC/DX INJECTION SUBQ/[place] [address] [facility] [place] [facility] & 7 MEDICAL PELVIS IMAGING W/O ASS CONTRAST MATERIAL BLOOD 19263 [facility] COUNT 7 [facility] COMPLETE INC INC AUTO&AUTO DIFRNTL WBC URNLS DIP 48187 BELL MALIA 7 [facility] STICK/TAB [place] [address] [facility] INFUSION 7 [facility] THERAPY/P INC INC ROPHYLAXI S /DX 1ST TO 1 HR THERAPEUT 28113 [facility] IC 7 [facility] INJECTION INC INC IV PUSH EACH NEW DRUG SUSCEPTIB 82379 [facility] LTY STDY 7 [facility] ANTIMICRB INC INC IAL MICRO/AGA R DILUTJ URINE 24951 [facility] TEST INC INC VISUAL COLOR CMPRSN METHS COMPREHEN 05779 [facility] SIVE 7 [facility] METABOLIC INC INC PANEL THER 37945 [facility] PROPH/DX 7 [facility] NJX EA INC INC SEQL IV PUSH SBST/DRUG FAC UNCLASSIF J3490 [facility] IED DRUGS 7 [facility] INC INC CULTURE 84749 BELL BRIDGESNE BACTERIAL 7 [facility] INC QUANTTATI VE COLONY COUNT URINE CULTURE 39367 [facility] BCT 7 [facility] ISOL&PRSM INC INC PTV ID ISOLATE EA URINE CULTURE 67791 CONFUCIANISM CONFUCIANISM TYPING 7 [facility] OTH/THN IMMUNOFLU ORES CULTURE 38391 CONFUCIANISM CONFUCIANISM BACTERIAL 7 [facility] QUANTTATI VE COLONY COUNT URINE CUL BACT 70273 CONFUCIANISM CONFUCIANISM AEROBIC 7 [facility] METHS DEFINITIV E EA ISOL POSTPARTU [address] [place] [address] [facility] MEDICAL SEPARATE GROUP PROCEDURE SUSCEPTIB 56219 CONFUCIANISM CONFUCIANISM LTY STDY 7 [facility]CR[facility] CARE IAL MICRO/AGA R DILUTJ URNLS DIP 46650 CONFUCIANISM CONFUCIANISM 7 HEALTH HEALTH STICK/TAB [facility] LET REAGENT AUTO MICROSCOP Y BREAST E0603 GOULDS GOULDS PUMP 7 DISCOUNT DISCOUNT Dashride MEDICAL ANY TYPE INC. [facility] 26023 CONFUCIANISM [place] DISCHARGE 7 HEALTH DAY MEDICAL MANAGEMEN GROUP T 30 MIN/< SBSQ [id number] CARE/DAY MEDICAL 15 GROUP MINUTES NEURAXIAL 81924 CONFUCIANISM [place] [facility] 7 ANESTHESI ANALG/ANE A PSC S PLND VAGINAL DELIVERY VAGINAL 15337 [facility] DELIVERY 7 HEALTH ONLY MEDICAL GROUP US PREG 49664 CONFUCIANISM CARUSO UTERUS 7 HEALTH REAL TIME MEDICAL F/U GROUP TRNSABDL PER FETUS DOPPLER 73016 CONFUCIANISM ZULY VELOCIMET 7 HEALTH RY MEDICAL UMBILICAL GROUP ARTERY 18168 CONFUCIANISM ZULY BIOPHYSIC 7 HEALTH AL MEDICAL PROFILE GROUP W/O NON-STRES S TESTING INITIAL 07051 [place] [address] HEALTH CARE/DAY MEDICAL 30 GROUP MINUTES 14445 CONFUCIANISM [place] NONSTRESS 7 HEALTH TEST MEDICAL GROUP 68743 CONFUCIANISM [place] NONSTRESS 7 HEALTH TEST MEDICAL GROUP 68423 CONFUCIANISM CONFUCIANISM NONSTRESS 7 HEALTH HEALTH TEST [facility] G0378 CONFUCIANISM CONFUCIANISM OBSERVATI 7 HEALTH HEALTH ON [facility] SERVICE PER HOUR 46467 CONFUCIANISM DANIELLE BIOPHYSIC 7 HEALTH AL MEDICAL PROFILE GROUP NON-STRES S TESTING 13582 CONFUCIANISM DANIELLE BIOPHYSIC 7 HEALTH AL MEDICAL PROFILE GROUP NON-STRES S TESTING CUL 06000 CONFUCIANISM CONFUCIANISM PRSMPTV 7 [facility] PTHGNC [facility] ORGANISM SCRN W/COLONY ESTIMJ IAADIADOO 10236 CONFUCIANISM CONFUCIANISM 7 [facility] STREPTOCO [facility] CCUS GROUP A 80982 CONFUCIANISM [place] NONSTRESS 7 HEALTH TEST MEDICAL GROUP INJECTION J1170 CONFUCIANISM CONFUCIANISM 7 [facility] HYDROMORP [facility] PHIL UP TO 4 MG THERAPEUT 56096 CONFUCIANISM CONFUCIANISM IC 7 [facility] PROPHYLAC [facility] TIC/DX INJECTION SUBQ/IM US PREG 57516 CONFUCIANISM KHURRAM UTERUS 7 [facility] REAL TIME MEDICAL F/U GROUP TRNSABDL PER FETUS CALCULUS 17709 CONFUCIANISM CONFUCIANISM QUANTITAT 7 [facility] SUZAN [facility] CHEMICAL DRUG TEST 03555 CONFUCIANISM CONFUCIANISM PRSMV 7 [facility] QUAL [facility] INSTRMNT OPTCL OBS PER DAY OBSERVATI 20395 CONFUCIANISM [place] ON CARE 7 HEALTH DISCHARGE MEDICAL [place]EMEN T 23032 CONFUCIANISM KHURRAM BIOPHYSIC 7 [facility] MEDICAL PROFILE GROUP W/O NON-STRES S TESTING INJECTION J2550 CONFUCIANISM CONFUCIANISM 7 [facility] PROMETHAZ [facility] INE HCL UP TO 50 MG THER 89565 CONFUCIANISM CONFUCIANISM PROPH/DX [facility] SEQL IV PUSH SBST/DRUG FAC INJ J0702 CONFUCIANISM CONFUCIANISM BETAMETHA 7 [facility] SONE [facility] ACETATE & PHOSPHATE 3 MG INJ J0702 CONFUCIANISM CONFUCIANISM BETAMETHA [address] [place] [address] ACETATE & PHOSPHATE 3 MG THER 71560 CONFUCIANISM CONFUCIANISM PROPH/DX 7 [facility] NJX EA [facility] SEQL IV PUSH SBST/DRUG FAC INJECTION J2550 CONFUCIANISM CONFUCIANISM 7 HEALTH HEALTH PROMETHAZ [facility] INE HCL UP TO 50 MG INJECTION J2405 CONFUCIANISM CONFUCIANISM 7 HEALTH HEALTH ONDANSETR [facility] ON HCL PER 1 MG [address] CONFUCIANISM [place] BIOPHYSIC 7 HEALTH AL MEDICAL PROFILE GROUP NON-STRES S TESTING COMPREHEN 61533 CONFUCIANISM QUEST SIVE 7 HEALTH DIAGNOSTI [facility] [place] [facility] G0378 CONFUCIANISM CONFUCIANISM OBSERVATI 7 HEALTH HEALTH ON [facility] SERVICE PER HOUR URNLS DIP 82977 CONFUCIANISM LAB INDER 7 HEALTH FADI STICK/TAB [facility] LET REAGENT AUTO MICROSCOP Y THERAPEUT 15315 CONFUCIANISM CONFUCIANISM IC 7 HEALTH HEALTH INJECTION [facility] IV PUSH EACH NEW DRUG THER 33479 CONFUCIANISM CONFUCIANISM PROPH/DX 7 [facility] HEALTH NJX IV [facility] PUSH SINGLE/1S T SBST/DRUG INJECTION J1170 CONFUCIANISM CONFUCIANISM 7 HEALTH HEALTH HYDROMORP [facility] PHIL UP TO 4 MG [address] CONFUCIANISM [place] NONSTRESS 7 HEALTH TEST MEDICAL GROUP INJECTION J2790 CONFUCIANISM [place] RHO D IG 7 HEALTH HUMAN MEDICAL FULL DOSE GROUP 300 MCG THERAPEUT 68533 CONFUCIANISM [place] IC 7 HEALTH PROPHYLAC MEDICAL TIC/DX GROUP INJECTION SUBQ/IM DOPPLER 29484 [facility] HEMMER VELOCIMET 7 [facility] RY INC UMBILICAL ARTERY CALCULUS 08942 [facility] LUU XRAY 7 [facility] [place] [address] [facility] LUU RETROPERI 7 [facility] TONEAL INC [place] [address] PAT PERRY RETROPERI 7 MEDICAL TONEAL IMAGING REAL TIME ASS W/IMAGE LIMITED URNLS DIP 54144 [facility] LUU 7 [facility] STICK/TAB INC [place] [address] [facility] INFUSION 7 [facility] THERAPY/P INC INC ROPHYLAXI S /DX 1ST TO 1 HR ANTIBODY 12026 [facility] SCREEN 7 [facility] RBC EACH INC INC SERUM TECHNIQUE COMPREHEN 01520 [facility] SIVE 7 [facility] [place] [address] [place] 7 MEDICAL UTERUS IMAGING LIMITED ASS 1/> FETUSES UNCLASSIF J3490 [facility] IED DRUGS 7 [facility] INC INC [address] [facility] 7 MEDICAL MEDICAL AL IMAGING IMAGING PROFILE ASS ASS W/O NON-STRES S TESTING THER 91365 [facility] PROPH/DX 7 [facility] NJX EA INC INC [place] [address] [facility] INFUSION 7 [facility] THERAPY/P INC INC ROPHYLAXI S /DX 1ST TO 1 HR THERAPEUT 81984 [facility] LUU IC 7 [facility] INJECTION INC INC IV PUSH EACH NEW DRUG URNLS DIP 36142 [facility] LUU 7 [facility] STICK/TAB INC INC LET REAGENT AUTO MICROSCOP Y THERAPEUT 01633 [facility]UU IC 7 [facility] PROPHYLAC INC INC TIC/DX INJECTION SUBQ/IM CULTURE 62539 [facility]U BACTERIAL 7 [facility] INC INC QUANTTATI VE COLONY COUNT URINE UNCLASSIF J3490 [facility] IED DRUGS 7 [facility] INC INC COLLECTIO 47151 [facility] N VENOUS 7 [facility] BLOOD INC INC VENIPUNCT URE THER 14195 [facility] PROPH/DX 7 [facility] NJX IV INC INC PUSH SINGLE/1S T SBST/DRUG CREATININ 13756 [facility] E BLOOD 7 [place] [address] [facility] UREA 7 [facility] NITROGEN INC INC QUANTITAT SUZAN 72802 [facility] NONSTRESS 7 [facility] TEST INC INC URNLS DIP 16542 [facility] LUU 7 [facility] STICK/TAB INC INC LET REAGENT AUTO MICROSCOP Y THERAPEUT 26575 [facility] LUU IC 7 [facility] INJECTION INC INC IV PUSH EACH NEW DRUG THERAPEUT 29037 [facility]UU IC 7 [facility] PROPHYLAC INC INC TIC/DX INJECTION SUBQ/IM UNCLASSIF J3490 [facility] IED DRUGS 7 [facility] INC INC OBSERVATI 17606 [facility] ON CARE 6 PHYSICIAN DISCHARGE S GROUP MANAGEMEN T INITIAL 09643 [facility] OBSERVATI 6 PHYSICIAN ON S GROUP CARE/DAY 50 MINUTES US PREG 94125 CONFUCIANISM CONFUCIANISM UTERUS 6 [facility] W/DETAIL [facility] JULIÁN 1ST GESTATION OBSERVATI 91844 [facility] 6 PHYSICIAN DISCHARGE S GROUP MANAGEMEN T HOSPITAL G0378 [facility] LUU OBSERVATI 6 [facility] ON INC INC SERVICE PER HOUR [facility]OSPITAL G0378 [facility] LUU OBSERVATI 6 [facility] ON INC INC SERVICE PER HOUR INITIAL 28807 [facility] OBSERVATI 6 PHYSICIAN ON S GROUP CARE/DAY 30 MINUTES DRUG TST G0477 [facility] PRESUMP;C 6 [facility] PBL BEING INC INC READ DC OPT OBV ONLY THERAPEUT 32367 [facility] LUU IC 6 [facility] PROPHYLAC INC INC TIC/DX INJECTION SUBQ/IM URNLS DIP 90997 [facility] LUU 6 [facility] STICK/TAB INC INC LET REAGENT AUTO MICROSCOP Y DRUG TST G0477 [facility] PRESUMP;C 6 PHYSICIAN PBL BEING S GROUP READ DC OPT OBV ONLY URNLS DIP 44636 [facility] MARICEL 5 REGIONAL STICK/TAB MEDICAL LET RGNT C NON-AUTO W/O MICRSCP IAADIADOO 05921 [facility] MARICEL 5 REGIONAL STREPTOCO MEDICAL CCUS C GROUP A IAADIADOO 90615 [facility] MARICEL 5 REGIONAL [place]FLU[place] [address] [facility] OFFICE 5 REGIONAL REG MEDICAL SCHEDD C EVN WKEND/HOL IDAY HRS URINE 64906 [facility] MARICEL 5 REGIONAL TEST MEDICAL V[place] [address] ROHAN BENNETTOS ABDOMEN & 5 KEL[facility] W/O PLLC CONTRAST MATERIAL Encounters Encounter Start End Date Code Location Performer Type Date HOSPITAL [facility] - 7 7 [facility] OUTPATIEN INC T OFFICE 25502 [facility] WILKERSONEN 7 7 [facility] T VISIT 5 INC MINUTES EMERGENCY 93046 [facility] 7 7 [facility] DEPARTMEN INC T VISIT HIGH/URGE NT SEVERITY EMERGENCY 71137 [facility] DEPT 7 7 PHYSICIAN VISIT S, [facility] HIGH SEVERITY& THREAT FUN HOSPITAL BELL - 7 7 [facility] OUTPATIEN INC T HOSPITAL BELL - 7 7 [facility] OUTPATIEN INC T EMERGENCY 88100 [facility] 7 7 [facility] DEPARTMEN INC T VISIT HIGH/URGE NT SEVERITY EMERGENCY 37661 [facility] HENNING DEPT 7 7 PHYSICIAN U VISIT [facility] HIGH SEVERITY& THREAT FUNJ EMERGENCY 03819 [facility] 7 7 [facility] DEPARTMEN INC T VISIT HIGH/URGE NT SEVERITY HOSPITAL [facility] - 7 7 [facility] OUTPATIEN INC T EMERGENCY 09377 [facility] PEREZ 7 7 [facility] III DEPARTMEN INC T VISIT MODERATE SEVERITY EMERGENCY 08841 [facility] BOYD 7 7 PHYSICIAN DEPARTMEN S, [facility] T VISIT HIGH/URGE NT SEVERITY HOSPITAL BE[facility] - 7 7 [facility] OUTPATIEN INC T EMERGENCY 59743 [facility] EDDY DEPT 7 7 PHYSICIAN VISIT S, [facility] HIGH SEVERITY& THREAT FUNCJ EMERGENCY 33154 [facility] 7 7 [facility] DEPARTMEN INC T VISIT HIGH/URGE NT SEVERITY HOSPITAL BELL - 7 7 [facility] OUTPATIEN [facility] CONFUCIANISM - 7 7 HEALTH OUTPATIEN [facility] CONFUCIANISM - 7 7 HEALTH INPATIENT [facility] CONFUCIANISM - 7 7 HEALTH OUTPATIEN [facility] OFFICE 63109 CONFUCIANISM [place] OUTPATIEN 7 7 HEALTH T VISIT MEDICAL 15 GROUP MINUTES OFFICE 70667 CONFUCIANISM [place] OUTPATIEN 7 7 HEALTH T VISIT MEDICAL 15 GROUP MINUTES OFFICE 30972 CONFUCIANISM DANIEL[place] OUTPATIEN 7 7 HEALTH T VISIT MEDICAL 15 GROUP MINUTES [facility] CONFUCIANISM - 7 7 HEALTH OUTPATIEN [facility] CONFUCIANISM - 7 7 HEALTH OUTPATIEN [facility] OFFICE 51757 CONFUCIANISM DANIEL[place] OUTPATIEN 7 7 HEALTH T VISIT MEDICAL 15 GROUP MINUTES OFFICE 13964 CONFUCIANISM [place] OUTPATIEN 7 7 HEALTH T VISIT MEDICAL 15 GROUP MINUTES OFFICE 25624 CONFUCIANISM [place] OUTPATIEN 7 7 HEALTH T VISIT MEDICAL 15 GROUP MINUTES HOSPITAL CONFUCIANISM - 7 7 HEALTH OUTPATIEN [facility] OFFICE 35985 CONFUCIANISM B[place] OUTPATIEN 7 7 HEALTH T NEW 45 MEDICAL MINUTES [facility] BELL - 7 7 [facility] OUTPATIEN INC T EMERGENCY 68223 [facility] EDDY DEPT 7 7 PHYSICIAN VISIT S, PLLC HIGH SEVERITY& THREAT FUNCJ EMERGENCY 34007 [facility] 7 7 [facility] DEPARTMEN INC T VISIT MODERATE SEVERITY HOSPITAL BELL - 7 7 [facility] OUTPATIEN INC T OFFICE 09201 [facility] OUTPATIJUVENTINO 7 7 PHYSICIAN T VISIT S GROUP 15 MINUTES HOSPITAL BELL - 7 7 [facility] OUTPATIEN INC T EMERGENCY 41950 [facility] 7 7 [facility] DEPARTMEN INC T VISIT MODERATE SEVERITY EMERGENCY 42939 [facility] MOJICA DEPT 7 7 PHYSICIAN VISIT S, PLLC HIGH SEVERITY& THREAT FUNCJ EMERGENCY 50493 [facility] 7 7 [facility] DEPARTMEN INC T VISIT LOW/MODER SEVERITY HOSPITAL BELL - 7 7 [facility] OUTPATIEN INC T EMERGENCY 77760 [facility]END[facility] HENNING 7 7 PHYSICIAN U DEPARTMEN S, PLLC T VISIT HIGH/URGE NT SEVERITY HOSPITAL BELL - 6 6 [facility] INPATIENT INC OFFICE 32977 CONFUCIANISM MARVIN CONSULTAT 6 6 HEALTH ION MEDICAL NEW/ESTAB GROUP PATIENT 15 MIN HOSPITAL CONFUCIANISM - 6 6 HEALTH OUTPATIEN [facility] BELL - 6 6 MEM [facility] OUTPATIEN INC T EMERGENCY 09188 [facility] 6 6 [facility] DEPARTMEN INC T VISIT LOW/MODER SEVERITY EMERGENCY 64556 BRENDEN EDDY 6 6 PHYSICIAN DEPARTMEN S, PLLC T VISIT MODERATE SEVERITY HOSPITAL BE[facility] - 6 6 [facility] OUTPATIEN INC T OFFICE 30465 [facility] OUTPATIEN 6 6 PHYSICIAN T NEW 45 S GROUP MINUTES OFFICE 44936 [facility] OUTPATIEN 5 5 REGIONAL T VISIT MEDICAL 15 C MINUTES
--- OUTSIDE RECORDS SUMMARY | 2017-02-15 17:17 | External Medical Summary Rpt | CCD ---
Author Author , BOLIVAR Organization BOLIVAR Address Unknown Phone [email or web address] Care Team Providers Care Weather Analyst Name Role Phone [facility] Unavailable Unavailable [facility], [facility] Un[facility] Unavailable [facility], [facility] Unavailable Unavailable MEDICAL GROUP, [facility] CARUSO, CARUSO Unavailable Unavailable LORENZ, [...] HEMMER Unavailable Unavailable HIETT, HIETT Unavailable Unavailable [facility] Unavailable Unavailable MEDICAL C, [facility] C [facility], Unavailable Unavailable [facility] MOJICA, MOJICA Unavailable Unavailable [facility] INDER FADI Unavailable [...] DOS Provider Status J069 ACUTE UPPER 12-22-2016 [facility] H[facility]P RESPIRATORY INC INFECTION UNSPECIFIED R319 HEMATURIA 12-22-2016 [facility]NSPECIFIED [facility] INC [id number] PERSONAL 12-22-2016 [facility] HISTORY OF [facility] URINARY INC CALCULI R109 UNSPECIFIED 11-05-2016 [facility], PAIN [facility] R1084 GENERALIZED 10-03-2016 [facility]BDOMINAL [facility] PAIN INC N132 HYDRONEPHRO 09-04-2016 [facility] SIS W/RENAL [facility] & URETRL INC CALCULOUS OBST N200 CALCULUS OF 09-04-2016 [facility] KID[facility], [facility] R1031 RIGHT LOWER 09-04-2016 [place] [facility] N23 UNSPECIFIED 08-25-2016 [facility] RENAL [facility]YS[facility], COLIC [facility] R300 DYSURIA 07-17-2016 [facility] Z391 ENCNTR FOR 07-17-2016 [facility] CARE & HEALTH EXAMINATION MEDICAL LACTATING GROUP MOTHER Z392 ENCOUNTER 07-17-2016 [facility] FOR ROUTINE HEALTH MEDICAL FOLLOW-UP GROUP O133 GESTATIONAL 06-25-2016 [facility] HTN W/O ANESTHESIA SIG PSC PROTEINURIA THIRD TRI O80 ENCOUNTER 06-25-2016 [facility] FOR ANESTHESIA FULL-TERM PSC UNCOMPLICAT ED DELIVERY Z370 SINGLE LIVE 06-25-2016 [facility] ANESTHESIA PSC O134 GESTATIONAL 06-24-2016 [facility] HTN W/O HEALTH SIGNIF [place] PROTEINURIA COMP CB [id number] MAT CARE 06-24-2016 [facility] HEALTH KNWN/SUSP MEDICAL POOR FTL GROUP GRTH 3RD TRI UNS O665 ATTEMPTED 06-24-2016 [facility] APPLICATION HEALTH VACUUM MEDICAL EXTRACTOR & GROUP FORCEPS [id number] L & D COMP 06-24-2016 [facility] CORD AROUND HEALTH NECK W/O [place] COMPRS NA/UNS Z2913 ENCOUNTER 06-24-2016 [facility] FOR [facility] PROPHYLACTI [facility] RHO IMMUNE GLOBULIN Z3A36 36 WEEKS 06-24-2016 [facility] GESTATION HEALTH OF MEDICAL GROUP O163 UNSPECIFIED 06-20-2016 [facility] MATERNAL HEALTH HYPERTENSIO [place] N 3RD TRIMESTER [id number] OTHER SPEC 06-20-2016 [facility] HEALTH RELATED MEDICAL COND 3RD GROUP TRIMESTER O288 OT 06-20-2016 [facility] ABNORMAL HEALTH FIND ON [place] SCREENING MOTHER [id number] MATERNAL 06-20-2016 [facility] CARE OT HEALTH SPEC MEDICAL PROB 3RD GROUP TRI NA/UNS Z3A35 35 WEEKS 06-17-2016 [facility] GROUP O289 UNS 06-13-2016 [facility] ABNORMAL HEALTH FIND ON [place] SCREENING MOTHER [id number] OLIGOHYDRAM 06-13-2016 [facility] NIOS THIRD HEALTH TRIMESTER MEDICAL NA/UNS GROUP E669 OBESITY 06-10-2016 [facility] UNSPECIFIED HEALTH MEDICAL GROUP Z3A34 34 WEEKS 06-10-2016 [facility] MEDICAL GROUP Z3A33 33 WEEKS 06-03-2016 [facility] O210 MILD 05-28-2016 [facility] HYPEREMESIS [facility]ALTH [facility] Z418 ENC OTH 05-28-2016 [facility] PROC HEALTH PURPOSES MEDICAL OTH THAN GROUP REMEDY [facility] N1330 UNSPECIFIED 05-25-2016 [facility] HYDRONEPHRO IMAGING ASS SIS O4443 LOW LYING 05-25-2016 [facility] NOS/WO IMAGING ASS HEMORRHAGE 3RD TRIM O4703 FALSE LABOR 05-25-2016 [facility] BEFORE 37 MEM [facility] CMPLETE INC WEEKS GEST 3RD TRI Z331 05-25-2016 [facility] INCIDENTAL IMAGING ASS Z3A32 32 WEEKS 05-25-2016 [facility] GESTATION [facility] OF INC [id number] 05-16-2016 [facility] RELATED PHYSICIANS, RENAL PLLC DISEASE THIRD TRIMESTER [id number] STRAIN 05-16-2016 [facility] MUSCLE FASC [facility] & TENDON INC NECK LEVL INIT ENC [id number] STRAIN 05-16-2016 [facility] MUSCLE [facility] FASCIA & INC TENDON LOW BACK INITIAL [id number] UNSPECIFIED 05-16-2016 [facility] LEFT HIP INC INITIAL ENCOUNTER Z3480 ENC 05-15-2016 [facility] SUPERVISION PHYSICIANS OTH NORMAL GROUP PREG UNS TRIMESTER Z3A30 30 WEEKS 05-09-2016 [facility] GESTATION [facility] OF INC O9989 OTH DZ & 05-08-2016 [facility] COND COMP PHYSICIANS, PREG PLLC CHILDBIRTH PUERPERIUM Z3483 ENC 05-08-2016 [facility] SUPERVISION [facility] OTH NORMAL INC 3 TRIMESTER Z3A31 31 WEEKS 05-08-2016 [facility] GESTATION PHYSICIANS, OF PLLC L85566 OTHER SPEC 03-31-2016 [facility] RELATED INC COND 2ND TRIMESTER Z3A26 26 WEEKS 03-31-2016 [facility] GESTATION [facility] OF INC [id number] MAT CARE 03-24-2016 [facility] OT HEALTH KNWN/SUSP MEDICAL POOR FTL GROUP GRTH 2ND TRI UNS Z3492 ENC 03-24-2016 [facility] NORMAL TYREE UNS 2 TRIMESTER Z3A23 23 WEEKS 03-24-2016 [facility] GROUP Q85262 SUPERVISION 03-21-2016 [facility] OT HIGH PHYSICIANS RISK PREG GROUP SECOND TRIMESTER Z3A21 21 WEEKS 03-21-2016 [facility] GESTATION PHYSICIANS OF GROUP O2692 03-20-2016 [facility] RELATED PHYSICIANS, CONDITIONS PLLC UNS 2ND TRIMESTER Z3A24 24 WEEKS 03-20-2016 [facility] GESTATION [facility] OF [facility] Z3201 ENCOUNTER 03-05-2016 [facility] FOR PHYSICIANS GROUP TEST RESULT POSITIVE 22933 ABDOMINAL 07-05-2014 [facility] OTHER REGIONAL SPECIFIED MEDICAL C SITE 44867 ABDOMINAL 05-09-2014 [place], RADIOLOGY UNSPECIFIED PLLC [...] 09 10 30 30 00 RI Ac IN 96 [...] 17 62 D E 5 96 PH IN AR OP MA CY 50 #3 MC [...] #3 93 MG 8 TA BL ET IN 68 08 09 7. 3 00 RI Ac AM 46 -0 -0 00 00 TE ti IP 20 8- 1- 0 01 ve EX 33 20 20 19 AI OL 09 17 17 46 D E 0 84 PH 0. AR 12 MA 5 CY MG #3 TA 93 BL 8 ET IN 00 08 09 7. 7 00 RI Ac OP 22 -0 -0 00 00 TE ti RA 82 8- 1- 0 01 ve NO 77 20 20 19 AI LO 81 17 17 46 D L 1 86 PH ER AR MA 60 CY MG #3 93 CA 8 PS UL E BU 45 08 09 30 30 00 RI Ac IN 96 [...] MG #1 21 TA 2 BL ET IN 68 07 08 30 15 00 RI Ac AM 46 -1 -0 .0 00 TE ti IP 20 1- 4- 00 01 ve EX 33 20 20 19 AI OL 09 17 17 13 D E 0 19 PH 0. AR 12 MA 5 CY MG #3 TA 93 BL 8 ET IN 00 07 08 30 30 00 RI [...] 07 07 30 30 00 RI Ac IN 96 -0 -2 .0 00 TE ti OP 30 2- 8- 00 01 ve IO 14 20 20 18 AI N 23 17 17 03 D HC 0 74 PH L AR XL MA CY 30 0 #3 MG 93 8 TA BL ET IN 65 07 07 20 5 00 RI Ac OM 16 -0 -2 .0 00 TE ti ET 20 5- 8- 00 01 ve BOJORQUEZ 52 20 20 19 AI ZI 11 17 17 06 D NE 0 61 PH AR 25 MA CY MG #3 TA 93 BL 8 ET NA 68 07 07 20 10 00 RI Ac IN 46 -0 -2 .0 00 TE ti [...] 1 64 PH CE AR TA MA MD CY NO PH #3 N 93 10 [...] 1 23 PH CE AR TA MA MD CY NO PH #3 N 93 10 [...] 1 60 PH CE AR TA MA MD CY NO PH #5 91 7. 5- [...] Ab Ser Ql (06-27-2016 15:47) HCV Ab [id number] Non-Catr[place]ita complet Ser 017 07 ctive ed [...] Bld Drugs Ur Scn (06-03-2016 14:44) Cannabi [id number] Negativ complet noids 017 09 e ed SerPl 14:44 Negativ Ql e SCT Bupreno 3048153 Negativ complet rphine 017 09 e ed SerPl-m 14:44 Negativ Cnc e SCT Propoxy 4792073 Negativ complet ph Ur 017 09 e ed Ql 14:44 Negativ e SCT Oxycodo 0790919 Negativ complet ne Ur 017 09 e ed Ql Scn 14:44 Negativ e SCT Barbitu 1192311 Negativ complet rates 017 09 e ed Ur Ql 14:44 Negativ Scn e SCT Methado 1353305 Negativ complet ne Ur 017 09 e ed Ql Scn 14:44 Negativ e SCT Tricycl 2049212 Negativ complet ics Ur 017 09 e ed Ql Scn 14:44 Negativ e SCT Benzodi 2560435 Negativ complet az Ur 017 09 e ed Ql Scn 14:44 Negativ e SCT Amphet+ 5749199 Negativ complet Methamp 017 09 e ed het Ur 14:44 Negativ Ql e SCT Opiates 6156269 Negativ complet Ur Ql 017 09 e ed 14:44 Negativ e SCT Ampheta 3592820 Negativ complet mines 017 09 e ed Ur Ql 14:44 Negativ e SCT Cocaine 6252070 Negativ complet Ur Ql 017 09 e ed 14:44 Negativ e SCT PCP Ur 1711858 Negativ complet Ql Scn 017 09 e [...] Ql 19:47 , 1.0 Strip E.U./dL Nitrite 5435530 Negativ complet Ur Ql 016 09 e ed Strip 19:47 Negativ e SCT Leukocy 3437723 Negativ complet te 016 09 e ed esteras 19:47 Negativ e Ur Ql e SCT Strip.a uto Prot Ur 3568429 Negativ complet Ql 016 09 e ed Strip 19:47 Negativ e SCT Hgb Ur 8517364 Negativ complet Ql 016 09 e ed Strip.a 19:47 Negativ uto e SCT Bilirub 7588901 Negativ complet Ur Ql 016 09 e ed Strip 19:47 Negativ e SCT Ketones 1216024 Negativ complet Ur Ql 016 06 e ed Strip 19:47 Trace SCT Glucose 7145121 Negativ complet Ur 016 09 e ed Strip-m 19:47 Negativ Cnc e SCT Sp Gr 1.015 1.005-1 complet Ur 016 .030 ed Strip 19:47 pH Ur 5.5 5.0-8.0 complet Strip.a 016 ed uto 19:47 Clarity [id number] Clear complet Ur 016 01 ed 19:47 Clear SCT Color [id number] Yellow, complet Ur 016 09 Straw ed [...] Ql 17:44 , 1.0 Strip E.U./dL Nitrite 5656759 Negativ complet Ur Ql 016 09 e ed Strip 17:44 Negativ e SCT Leukocy 6961256 Negativ complet te 016 09 e ed esteras 17:44 Negativ e Ur Ql e SCT Strip.a uto Prot Ur 30 Negativ complet Ql 016 mg/dL e ed Strip 17:44 (1+) Hgb Ur 9907754 Negativ complet Ql 016 01 e ed Strip.a 17:44 Large uto SCT Bilirub 2316435 Negativ complet Ur Ql 016 09 e ed Strip 17:44 Negativ e SCT Ketones 6341931 Negativ complet Ur Ql 016 09 e ed Strip 17:44 Negativ e SCT Glucose 1322589 Negativ complet Ur 016 09 e ed Strip-m 17:44 Negativ Cnc e SCT Sp Gr >= 1.005-1 complet Ur 016 1.030 .030 ed Strip 17:44 pH Ur <= 5.0 5.0-8.0 complet Strip.a 016 ed uto 17:44 Clarity [id number] Clear complet Ur 016 02 ed 17:44 Turbid SCT Color 0664312 Yellow, complet Ur 016 00 Red Straw [...] fl 6.4-10. complet 014 4 ed 15:09 [facility] (UA W MICRO AND CULTURE) [...] DOS Code Location Performer Comment URNLS DIP 10031 [facility] LUU 7 [facility] STICK/TAB INC INC LET RGNT AUTO W/O MICROSCOP Y RADEX 09600 [place] L[facility] ABDOMEN 1 7 MEDICAL [place] [address] [facility] LUU INFUSION 7 [facility] THERAPY/P INC INC ROPHYLAXI S /DX 1ST TO 1 HR THERAPEUT 99918 [facility] IC 7 [facility] INJECTION INC INC IV PUSH EACH NEW DRUG URINE 64906 [facility] LUU 7 [facility] TEST INC INC VISUAL COLOR CMPRSN METHS THER 82966 [facility] PROPH/DX 7 [facility] NJX EA INC INC SEQL IV PUSH SBST/DRUG FAC UNCLASSIF J3490 [facility] IED DRUGS 7 [facility] INC INC COMPREHEN 93828 [facility] SIVE 7 [facility] METABOLIC INC INC PANEL DRUG TEST 37318 [facility] PRSMV 7 [facility] QUAL DIR INC INC OPTICAL OBS PER DAY UNCLASSIF J3490 [facility] IED DRUGS 7 [facility] INC INC CULTURE 89294 [facility] BACTERIAL 7 [facility] INC INC QUANTTATI VE COLONY COUNT URINE URINE 18875 [facility] LUU 7 [facility] TEST INC INC VISUAL COLOR CMPRSN METHS COLLECTIO 31056 [facility] N VENOUS 7 [facility] BLOOD INC INC VENIPUNCT URE COMPREHEN 08304 [facility] SIVE 7 [facility] METABOLIC INC INC PANEL BLOOD 17694 [facility] COUNT 7 [facility] COMPLETE INC INC AUTO&AUTO DIFRNTL WBC URNLS DIP 52229 [facility] BELL 7 [facility] STICK/TAB INC [place] [address] PAT LORENZ ABDOMEN & 7 MEDICAL PELVIS IMAGING W/[place] [address] [facility]UU LIPASE 7 [facility] INC INC THERAPEUT 16787 [facility] IC 7 [facility] PROPHYLAC INC INC TIC/DX INJECTION SUBQ/[place] [address] [facility] LIPASE [place] [address] PAT BURGESSUTCHER ABDOMEN & 7 MEDICAL PELVIS IMAGING W/[place] [address] [facility] AMYLASE 7 [facility] INC INC URNLS DIP 64133 [facility] LUU 7 [facility] STICK/TAB INC INC LET REAGENT AUTO MICROSCOP Y BLOOD 96340 [facility] COUNT 7 [facility] COMPLETE INC INC AUTO&[place] [address] [facility] INFUSION 7 [facility] THERAPY/P INC INC ROPHYLAXI S /DX 1ST TO 1 HR THERAPEUT 16557 [facility] IC 7 [facility] INJECTION INC INC IV PUSH EACH NEW DRUG URINE 33698 [facility] LUU 7 [facility] TEST INC INC VISUAL COLOR CMPRSN METHS THER 89830 [facility] PROPH/DX 7 [facility] H[facility] NJX EA INC INC SEQL IV PUSH SBST/DRUG FAC UNCLASSIF J3490 [facility] IED DRUGS 7 [facility] INC INC COMPREHEN 86319 [facility] SIVE 7 [facility] METABOLIC INC INC PANEL COMPREHEN 92307 [facility] LUU SIVE 7 [facility] METABOLIC INC INC PANEL DRUG TEST 64156 [facility] LUU PRSMV 7 [facility] QUAL DIR INC INC OPTICAL OBS PER DAY UNCLASSIF J3490 [facility] LUU IED DRUGS 7 [facility] INC INC URINE 98145 [facility] LUU 7 [facility] TEST INC INC VISUAL COLOR CMPRSN METHS BLOOD 02372 [facility] COUNT 7 [facility] COMPLETE INC INC AUTO&AUTO DIFRNTL WBC RADEX 43276 PAT BURGESSUTCHER ABDOMEN 1 7 MEDICAL IMAGING ANTEROPOS ASS TERIOR VIEW THERAPEUT 06227 [facility] IC 7 [facility] PROPHYLAC INC INC TIC/DX INJECTION SUBQ/[place] [address] [facility] [place] ABDOMEN & 7 MEDICAL PELVIS IMAGING W/O ASS CONTRAST MATERIAL BLOOD 58934 [facility] L[facility] COUNT 7 [facility] COMPLETE INC INC AUTO&AUTO DIFRNTL WBC URNLS DIP 27572 [facility] MALIA 7 [facility] STICK/TAB [place] [address] [facility] LUU INFUSION 7 [facility] THERAPY/P INC INC ROPHYLAXI S /DX 1ST TO 1 HR THERAPEUT 40345 [facility] IC 7 [facility] INJECTION INC INC IV PUSH EACH NEW DRUG SUSCEPTIB 29601 [facility] LTY STDY 7 [facility] H[facility] ANTIMICRB INC INC IAL MICRO/AGA R DILUTJ URINE 43565 [facility] LUU 7 [facility] TEST INC INC VISUAL COLOR CMPRSN METHS COMPREHEN 74941 [facility] LUU SIVE 7 [facility] METABOLIC INC INC PANEL THER 10015 [facility] PROPH/DX 7 [facility] NJX EA INC INC SEQL IV PUSH SBST/DRUG FAC UNCLASSIF J3490 [facility] IED DRUGS 7 [facility] INC INC CULTURE 10536 [facility] BRIDGESNE BACTERIAL 7 [facility] INC QUANTTATI VE COLONY COUNT URINE CULTURE 72773 [facility] LUU BCT 7 [facility] H[facility] ISOL&PRSM INC INC PTV ID ISOLATE EA URINE CULTURE 19336 [facility] TYPING 7 [facility] IC OTH/THN IMMUNOFLU ORES CULTURE 76917 [facility]ISM BACTERIAL 7 [facility] QUANTTATI VE COLONY COUNT URINE CUL BACT 13536 [facility] AEROBIC 7 HEALTH HEALTH ADDL [facility] METHS DEFINITIV E EA ISOL POSTPARTU [address] [place] [address] HEALTH ONLY MEDICAL SEPARATE GROUP PROCEDURE SUSCEPTIB 32574 [facility]ISM RESTORATIONISM LTY STDY 7 [facility] HEALTH ANTIMICRB [facility] IAL MICRO/AGA R DILUTJ URNLS DIP 95866 REST[facility]ISM RESTORATIONISM 7 HEALTH HEALTH STICK/TAB [facility] LET REAGENT AUTO MICROSCOP Y BREAST E0603 GOULDS GOULDS PUMP 7 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 [facility] [address] [facility]ISM SARDIS DISCHARGE 7 HEALTH DAY MEDICAL MANAGEMEN GROUP T 30 MIN/< SBSQ [address] CARE/DAY MEDICAL 15 GROUP MINUTES NEURAXIAL 55570 [facility] [place] LABOR 7 ANESTHESI ANALG/ANE A PSC S PLND VAGINAL DELIVERY VAGINAL 63155 [facility] DELIVERY 7 HEALTH ONLY MEDICAL GROUP US PREG 32436 [facility] CARUSO UTERUS 7 HEALTH REAL TIME MEDICAL F/U GROUP TRNSABDL PER FETUS DOPPLER 18570 [facility]ISM ZULY VELOCIMET 7 HEALTH RY MEDICAL UMBILICAL GROUP ARTERY 69881 [facility] ZULY BIOPHYSIC 7 HEALTH AL MEDICAL PROFILE GROUP W/O NON-STRES S TESTING INITIAL 11489 [place] [address] HEALTH CARE/DAY MEDICAL 30 GROUP MINUTES 68290 [facility]ISM B[place]MAN NONSTRESS 7 HEALTH TEST MEDICAL GROUP 55147 REST[facility]ISM [place] NONSTRESS 7 HEALTH TEST MEDICAL GROUP 75466 REST[facility]ISM REST[facility]ISM NONSTRESS 7 HEALTH HEALTH TEST [facility] G0378 RESTORATIONISM RESTORATIONISM OBSERVATI 7 HEALTH HEALTH ON [facility] SERVICE PER HOUR 67554 REST[facility]ISM DANIELLE BIOPHYSIC 7 HEALTH AL MEDICAL PROFILE GROUP NON-STRES S TESTING 28903 [facility] DANIELLE BIOPHYSIC 7 HEALTH AL MEDICAL PROFILE GROUP NON-STRES S TESTING CUL 53903 RESTOR[facility]ISM RESTORATIONISM PRSMPTV 7 [facility] PTHGNC [facility] ORGANISM SCRN W/COLONY ESTIMJ IAADIADOO 51628 RESTORATIONISM RESTORATIONISM 7 [facility] STREPTOCO [facility] CCUS GROUP A [address] REST[facility]ISM BOWMAN NONSTRESS 7 HEALTH TEST MEDICAL GROUP INJECTION J1170 RESTORATIONISM RESTORATIONISM 7 [facility] HYDROMORP [facility] PHIL UP TO 4 MG THERAPEUT 54771 RESTORATIONISM RESTORATIONISM IC 7 [facility] PROPHYLAC [facility] TIC/DX INJECTION SUBQ/IM US PREG 11617 RESTOR[facility]ISM KHURRAM UTERUS 7 [facility] REAL TIME MEDICAL F/U GROUP TRNSABDL PER FETUS CALCULUS 86708 RESTOR[facility]ISM RESTORATIONISM QUANTITAT 7 [facility] SUZAN [facility] CHEMICAL DRUG TEST 41265 REST[facility]ISM REST[facility]ATIONISM PRSMV 7 [facility] QUAL [facility] INSTRMNT OPTCL OBS PER DAY OBSERVATI 62463 RESTORATIONISM BOWMAN ON CARE 7 HEALTH DISCHARGE [place]ICAL [place] T [address] RESTOR[facility]ISM KHURRAM BIOPHYSIC 7 [facility] MEDICAL PROFILE GROUP W/O NON-STRES S TESTING INJECTION J2550 RESTORATIONISM RESTORATIONISM 7 [facility] PROMETHAZ [facility] INE HCL UP TO 50 MG THER 22260 RESTORATIONISM RESTORATIONISM PROPH/DX 7 [facility] EA [facility] SEQL IV PUSH SBST/DRUG FAC INJ J0702 RESTORATIONISM RESTORATIONISM BETAMETHA 7 [facility] SONE [facility] ACETATE & PHOSPHATE 3 MG INJ J0702 RESTORATIONISM RESTORATIONISM BETAMETHA [address] [place] [address] ACETATE & PHOSPHATE 3 MG THER 05834 RESTORATIONISM RESTORATIONISM PROPH/DX 7 [facility] NJX EA [facility] SEQL IV PUSH SBST/DRUG FAC INJECTION J2550 RESTORATIONISM RESTORATIONISM 7 HEALTH HEALTH PROMETHAZ [facility] INE HCL UP TO 50 MG INJECTION J2405 RESTORATIONISM RESTORATIONISM 7 HEALTH HEALTH ONDANSETR [facility] ON HCL PER 1 [place] [address] RESTORATIONISM BOWMAN BIOPHYSIC 7 HEALTH AL MEDICAL PROFILE GROUP NON-STRES S TESTING COMPREHEN 41999 RESTOR[facility]ISM QUEST SIVE 7 HEALTH DIAGNOSTI METABOLIC [place] [facility] G0378 REST[facility]ISM RESTORATIONISM OBSERVATI 7 HEALTH HEALTH ON [facility] SERVICE PER HOUR URNLS DIP 49724 RESTORATIONISM LAB INDER 7 HEALTH FADI STICK/TAB [facility] LET REAGENT AUTO MICROSCOP Y THERAPEUT 45579 RESTORATIONISM RESTORATIONISM IC 7 HEALTH HEALTH INJECTION [facility] IV PUSH EACH NEW DRUG THER 90824 RESTORATIONISM RESTORATIONISM PROPH/DX 7 [facility] HEALTH NJX IV [facility] PUSH SINGLE/1S T SBST/DRUG INJECTION J1170 RESTORATIONISM RESTORATIONISM 7 HEALTH HEALTH HYDROMORP [facility] PHIL UP TO 4 MG 92209 RESTORATIONISM BOWMAN NONSTRESS 7 HEALTH TEST MEDICAL GROUP INJECTION J2790 RESTORATIONISM BOWMAN RHO D IG 7 HEALTH HUMAN MEDICAL FULL DOSE GROUP 300 MCG THERAPEUT 23229 RESTORATIONISM BOWMAN IC 7 HEALTH PROPHYLAC MEDICAL TIC/DX GROUP INJECTION SUBQ/IM DOPPLER 19551 [facility] HEMMER VELOCIMET 7 [facility] HOS[facility] RY INC UMBILICAL ARTERY CALCULUS 91147 [facility] LUU XRAY 7 [facility] [place] [place] [address] [facility] LUU RETROPERI 7 [facility] TONEAL INC [place] [address] PAT PERRY RETROPERI 7 MEDICAL TONEAL IMAGING REAL TIME ASS W/IMAGE LIMITED URNLS DIP 53252 [facility] LUU 7 [facility] STICK/TAB INC [place] [address] [facility] LUU INFUSION 7 [facility] THERAPY/P INC INC ROPHYLAXI S /DX 1ST TO 1 HR ANTIBODY 03429 BE[facility] LUU SCREEN 7 [facility] RBC EACH INC INC SERUM TECHNIQUE COMPREHEN 80557 [facility] LUU SIVE 7 [facility] [place] [address] [place] 7 MEDICAL UTERUS IMAGING LIMITED ASS 1/> FETUSES UNCLASSIF J3490 [facility] LUU IED DRUGS 7 [facility] H[facility] INC INC 869[address] [facility] BIOPHYS 7 MEDICAL MEDICAL AL IMAGING IMAGING PROFILE ASS ASS W/O NON-STRES S TESTING THER 92521 [facility] LUU PROPH/DX 7 [facility] NJX EA INC INC SEQL [place] PUSH SBST/[place] [address] [facility] LUU INFUSION 7 [facility] THERAPY/P INC INC ROPHYLAXI S /DX 1ST TO 1 HR THERAPEUT 89269 [facility] L[facility] IC 7 [facility] INJECTION INC INC IV PUSH EACH NEW DRUG URNLS DIP 43590 [facility] LUU 7 [facility] STICK/TAB INC INC LET REAGENT AUTO MICROSCOP Y THERAPEUT 90921 [facility]UU IC 7 [facility] PROPHYLAC INC INC TIC/DX INJECTION SUBQ/IM CULTURE 77695 [facility] LUU BACTERIAL 7 [facility] INC INC QUANTTATI VE COLONY COUNT URINE UNCLASSIF J3490 [facility] IED DRUGS 7 [facility] INC INC COLLECTIO 85996 [facility] N VENOUS 7 [facility] BLOOD INC INC VENIPUNCT URE THER 80470 [facility] PROPH/DX 7 [facility] NJX IV INC INC PUSH SINGLE/1S T SBST/DRUG CREATININ 00813 [facility] E BLOOD 7 [facility] [place] [address] [facility] UREA 7 [facility] NITROGEN INC INC QUANTITAT SUZAN 96307 [facility] NONSTRESS 7 [facility] TEST INC INC URNLS DIP 66696 [facility] STICK/TAB INC INC LET REAGENT AUTO MICROSCOP Y THERAPEUT 80938 [facility] L[facility] IC 7 [facility] INJECTION INC INC IV PUSH EACH NEW DRUG THERAPEUT 42874 [facility] IC 7 [facility] PROPHYLAC INC INC TIC/DX INJECTION SUBQ/IM UNCLASSIF J3490 [facility] IED DRUGS 7 [facility] INC INC OBSERVATI 85790 [facility] DANII ON CARE 6 PHYSICIAN DISCHARGE S GROUP MANAGEMEN T INITIAL 80888 [facility] DANII OBSERVATI 6 PHYSICIAN ON S GROUP CARE/DAY 50 MINUTES US PREG 46779 RESTORATIONISM RESTORATIONISM UTERUS 6 [facility] W/DETAIL [facility] JUL[facility]N 1ST GESTATION OBSERVATI 33756 [facility] DANII ON CARE 6 PHYSICIAN DISCHARGE S GROUP MANAGEMEN T HOSPITAL G0378 [facility] OBSERVATI 6 [facility] ON INC INC SERVICE PER HOUR [facility] G0378 [facility] OBSERVATI 6 [facility] ON INC INC SERVICE PER HOUR INITIAL 11097 [facility] DANII OBSERVATI 6 PHYSICIAN ON S GROUP CARE/DAY 30 MINUTES DRUG TST [id number] [facility] PRESUMP;C 6 [facility] PBL BEING INC INC READ DC OPT OBV ONLY THERAPEUT 28518 [facility] IC 6 [facility] PROPHYLAC INC INC TIC/DX INJECTION SUBQ/IM URNLS DIP 27743 [facility] 6 [facility] STICK/TAB INC INC LET REAGENT AUTO MICROSCOP Y DRUG TST G0477 [facility] DANII PRESUMP;C 6 PHYSICIAN PBL BEING S GROUP READ DC OPT OBV ONLY URNLS DIP 77000 [facility] MAR[facility]EL 5 REGIONAL STICK/TAB MEDICAL LET RGNT C NON-AUTO W/O MICRSCP IAADIADOO 70888 [facility] 5 REGIONAL STREPTOCO MEDICAL CCUS C GROUP A IAADIADOO 00791 [facility] 5 REGIONAL INFLUENZA MEDICAL C SVC PRV 81798 [facility] OFFICE 5 REGIONAL REG MEDICAL SCHEDD C EVN WKEND/HOL IDAY HRS URINE 26859 [facility] MARICEL 5 REGIONAL TEST MEDICAL [place] [address] ROHAN BENNETTOS ABDOMEN & 5 KELVIN PELVIS RADIOLOGY W/O PLLC CONTRAST MATERIAL Encounters Encounter Start End Date Code Location Performer Type Date [facility] T OFFICE [id number] [facility] WILKERSONEN [facility] 7 [facility] T VISIT 5 INC MINUTES EMERGENCY 25268 [facility] 7 7 [facility] DEPARTMEN INC T VISIT HIGH/URGE NT SEVERITY EMERGENCY 57647 [facility] BOYD DEPT 7 7 PHYSICIAN VISIT S, [facility] HIGH SEVERITY& THREAT FUN [facility]OSPITAL [facility] - 7 7 [facility] T [facility] - [facility] 7 [facility] OUT[facility]IEN INC T EMERGENCY 53871 [facility] 7 7 [facility] DEPARTMEN INC T VISIT HIGH/URGE NT SEVERITY EMERGENCY 58717 BRENDEN HENNING DEPT 7 7 PHYSICIAN U VISIT [facility] HIGH SEVERITY& THREAT FUNJ EMERGENCY 01615 [facility] 7 7 [facility] DEPARTMEN INC T VISIT HIGH/URGE NT SEVERITY [facility]OSPITAL [facility] - 7 7 [facility] OUTPATIEN INC T EMERGENCY 02735 [facility] PEREZ 7 7 [facility] III DEPARTMEN INC T VISIT MODERATE SEVERITY EMERGENCY 52328 BRENDEN BOYD 7 7 PHYSICIAN DEPARTMEN S, [facility] T VISIT HIGH/URGE NT SEVERITY [facility]OSPITAL [facility] - 7 7 [facility] OUTPATIEN INC T EMERGENCY 49349 BRENDEN EDDY DEPT 7 7 PHYSICIAN VISIT S, [facility] HIGH SEVERITY& THREAT FUNCJ EMERGENCY 95444 [facility] 7 7 [facility] DEPARTMEN INC T VISIT HIGH/URGE NT SEVERITY [facility]OSPITAL [facility] - 7 7 [facility] OUTPATIEN [facility] RESTORATIONISM - 7 7 HEALTH OUTPATIEN [facility] RESTOR[facility] - 7 7 HEALTH INPATIENT [facility] RESTORATIONISM - 7 7 HEALTH OUTPATIEN [facility] OFFICE 59097 [facility] [place] OUTPATIEN 7 7 HEALTH T VISIT MEDICAL 15 GROUP MINUTES OFFICE 28029 [facility] [place] OUTPATIEN 7 7 HEALTH T VISIT MEDICAL 15 GROUP MINUTES OFFICE 44254 [facility] DANIEL[facility] OUTPATIEN 7 7 HEALTH T VISIT MEDICAL 15 GROUP MINUTES [facility] RESTORATIONISM - 7 7 HEALTH OUTPATIEN [facility] RESTORATIONISM - 7 7 HEALTH OUTPATIEN [facility] OFFICE 63909 [facility] DANIELLE OUTPATIEN 7 7 HEALTH T VISIT MEDICAL 15 GROUP MINUTES OFFICE 89401 [facility] [place] OUTPATIEN 7 7 HEALTH T VISIT MEDICAL 15 GROUP MINUTES OFFICE 51643 [facility] [place] OUTPATIEN 7 7 HEALTH T VISIT MEDICAL 15 GROUP MINUTES HOSPITAL [facility] - 7 7 HEALTH OUTPATIEN [facility] OFFICE 91489 [facility] [place] OUTPATIEN 7 7 HEALTH T NEW 45 MEDICAL MINUTES [facility] - 7 7 [facility] OUTPATIEN INC T EMERGENCY 89890 BRENDEN EDDY DEPT 7 7 PHYSICIAN VISIT S, PLLC HIGH SEVERITY& THREAT FUNCJ EMERGENCY 55198 [facility] 7 7 [facility] DEPARTMEN INC T VISIT MODERATE SEVERITY [facility] - 7 7 [facility] OUTPATIEN INC T OFFICE 64069 [facility] DANII OUTPATIJUVENTINO 7 7 PHYSICIAN T VISIT S GROUP 15 MINUTES [facility]OSPITAL [facility] - 7 7 [facility] OUTPATIEN INC T EMERGENCY 13419 [facility] 7 7 [facility] DEPARTMEN INC T VISIT MODERATE SEVERITY EMERGENCY 89525 BRENDEN MOJICA DEPT 7 7 PHYSICIAN VISIT S, PLLC HIGH SEVERITY& THREAT FUNCJ EMERGENCY 53484 [facility] 7 7 [facility] DEPARTMEN INC T VISIT LOW/MODER SEVERITY [facility] - 7 7 [facility] OUTPATIEN INC T EMERGENCY 88257 BRENDEN HENNING 7 7 PHYSICIAN U DEPARTMEN S, PLLC T VISIT HIGH/URGE NT SEVERITY [facility]OSPITAL [facility] - 6 6 [facility] INPATIENT INC OFFICE 31816 [facility]AT 6 6 HEALTH ION MEDICAL NEW/ESTAB GROUP PATIENT 15 MIN HOSPITAL RESTORATIONISM - 6 6 HEALTH OUTPATIEN [facility] BELL - 6 6 [facility] OUTPATIEN INC T EMERGENCY 71072 [facility] 6 6 [facility] DEPARTMEN INC T VISIT LOW/MODER SEVERITY EMERGENCY 35680 BRENDEN EDDY 6 6 PHYSICIAN DEPARTMEN S, PLLC T VISIT MODERATE SEVERITY [facility]OSPITAL [facility] - 6 6 [facility] OUTPATIEN INC T OFFICE 95704 [facility] DANII OUTPATIEN 6 6 PHYSICIAN T NEW 45 S GROUP MINUTES OFFICE 87241 [facility] OUTPATIEN 5 5 REGIONAL T VISIT MEDICAL 15 C MINUTES
[2017-02-15] MEDS ORDERED: PHENERGAN25 M3 PO (17:18)
[2017-02-15] MEDS ORDERED: NAPROSYN500 M1 PO (17:18)
--- OUTSIDE RECORDS SUMMARY | 2017-02-15 17:22 | External Medical Summary Rpt | CCD ---
Author Author , [facility] Organization [facility] Address Unknown Phone .[employer] Care Team Providers Care Marketing Intelligence Analyst Name Role Phone [facility] Unavailable Unavailable [facility], [facility] Unavailable Unavailable [place], [facility] Unavailable Unavailable MEDICAL GROUP, [facility] CARUSO, CARUSO Unavailable Unavailable DANIELLE, DANIELLE Unavailable Unavailable BROWN MARICEL, BROWN MARICEL Unavailable Unavailable FOY, FOY Unavailable Unavailable ANA III, ANA Unavailable Unavailable III ORLANDO, ORLANDO Unavailable Unavailable NUNU, NUNU Unavailable Unavailable [facility] Unavailable [facility]available [facility] Unavailable Unavailable INC, [facility] HEMMER, HEMMER Unavailable Unavailable HIETT, HIETT Unavailable Unavailable [facility] Unavailable Unavailable MEDICAL C, [facility], Unavailable Unavailable [facility] MOJICA, MOJICA Unavailable Unavailable [facility] Unavailable Unavailable [facility], [facility] MALIA FINLEY Unavailable Unavailable BOWMAN, BOWMAN Unavailable Unavailable [facility] [...] DOS Provider Status J069 ACUTE UPPER 12-22-2016 [facility] INC INFECTION UNSPECIFIED R319 HEMATURIA 12-22-2016 [facility]PECIFIED [facility] INC [id number] PERSONAL 12-22-2016 [facility] HIST[facility] OF [facility] URINARY INC CALCULI R109 UNSPECIFIED 11-05-2016 [facility], PAIN PLLC R1084 GENERALIZED 10-03-2016 [facility]BDOMINAL [facility] PAIN INC N132 HYDRONEPHRO 09-04-2016 [facility] SIS W/RENAL [facility] & URETRL INC CALCULOUS OBST N200 CALCULUS OF 09-04-2016 [facility], [facility] R1031 RIGHT LOWER 09-04-2016 [facility] N23 UNSPECIFIED 08-25-2016 [facility] RENAL PHYSICIANS, COLIC [facility] R300 DYSURIA 07-17-2016 [facility] [place] Z391 ENCNTR FOR 07-17-2016 [facility] CARE & HEALTH EXAMINATION MEDICAL LACTATING GROUP MOTHER Z392 ENCOUNTER 07-17-2016 [facility] FOR ROUTINE HEALTH MEDICAL FOLLOW-UP GROUP O133 GESTATIONAL 06-25-2016 [facility] HTN W/O ANESTHESIA SIG PSC PROTEINURIA THIRD TRI O80 ENCOUNTER 06-25-2016 [facility] FOR ANESTHESIA FULL-TERM PSC UNCOMPLICAT ED DELIVERY Z370 SINGLE LIVE 06-25-2016 [facility] ANESTHESIA PSC O134 GESTATIONAL 06-24-2016 [facility] HTN W/O HEALTH SIGNIF [place] PROTEINURIA COMP CB [id number] MAT CARE 06-24-2016 [facility] OT HEALTH KNWN/SUSP MEDICAL POOR FTL GROUP GRTH 3RD TRI UNS O665 ATTEMPTED 06-24-2016 [facility] MEDICAL EXTRACTOR & GROUP FORCEPS [id number] L & D COMP 06-24-2016 [facility] CORD AROUND HEALTH NECK W/O [place] COMPRS NA/UNS Z2913 ENCOUNTER 06-24-2016 [facility]I [facility] C RHO IMMUNE GLOBULIN Z3A36 36 WEEKS 06-24-2016 [facility] GESTATION HEALTH OF MEDICAL GROUP O163 UNSPECIFIED 06-20-2016 [facility] MATERNAL HEALTH [facility]ENSIO [facility] N 3RD TRIMESTER S53006 OTHER SPEC 06-20-2016 [facility] HE[facility] RELATED MEDICAL COND 3RD GROUP TRIMESTER O288 OTH 06-20-2016 [facility] ABNORMAL HEALTH FIND ON [place] SCREENING MOTHER [id number] MATERNAL 06-20-2016 [facility] CARE [facility] SPEC MEDICAL PROB 3RD GROUP TRI NA/UNS Z3A35 35 WEEKS 06-17-2016 [facility] GESTATION [facility] OF MEDICAL GROUP O289 UNS 06-13-2016 [facility] ABNORMAL HEALTH FIND ON [place] SCREENING MOTHER [id number] OLIGOHYDRAM 06-13-2016 [facility] NIOS THIRD HEALTH TRIMESTER MEDICAL NA/UNS GROUP E669 OBESITY 06-10-2016 [facility] UNSPECIFIED HEALTH MEDICAL GROUP Z3A34 34 WEEKS 06-10-2016 [facility]STATION [facility] OF MEDICAL GROUP Z3A33 33 WEEKS 06-03-2016 [facility] MEDICAL GROUP O210 MILD 05-28-2016 [facility] HYPEREMESIS [facility] Z418 ENC OTH 05-28-2016 [facility] PROC HEALTH PURPOSES MEDICAL OTH THAN GROUP REMEDY [facility] N1330 UNSPECIFIED 05-25-2016 [facility] HYDRONEPHRO IMAGING ASS SIS O4443 LOW LYING 05-25-2016 [facility] NOS/WO IM[facility]ING ASS HEMORRHAGE 3RD TRIM O4703 FALSE LABOR 05-25-2016 [facility] BEFORE 37 [facility] CMPLETE INC WEEKS GEST 3RD TRI Z331 05-25-2016 [facility] INCIDENTAL IMAGING ASS Z3A32 32 WEEKS 05-25-2016 [facility] GESTATION [facility] OF INC H31102 05-16-2016 [facility] RELATED PHYSICIANS, RENAL PLLC DISEASE THIRD TRIMESTER [id number] STRAIN 05-16-2016 [facility] MUSCLE FASC [facility] & TENDON INC NECK LEVL INIT ENC K97159H STRAIN 05-16-2016 [facility] MUSCLE [facility] FASCIA & INC TENDON LOW BACK INITIAL [id number] UNSPECIFIED 05-16-2016 [facility] SPRAIN OF [facility] LEFT HIP INC INITIAL ENCOUNTER Z3480 ENC 05-15-2016 [facility] SUPERVISION PHYSICIANS OTH NORMAL GROUP PREG UNS TRIMESTER Z3A30 30 WEEKS 05-09-2016 [facility] GESTATION [facility] OF INC O9989 OTH DZ & 05-08-2016 [facility] COND COMP PHYSICIANS, PREG PLLC CHILDBIRTH PUERPERIUM Z3483 ENC 05-08-2016 [facility] SUPERVISION [facility] OTH NORMAL INC 3 TRIMESTER Z3A31 31 WEEKS 05-08-2016 [facility] GESTATION PHYSICIANS, OF PLLC L85660 OTHER SPEC 03-31-2016 [facility] RELATED INC COND 2ND TRIMESTER Z3A26 26 WEEKS 03-31-2016 [facility] GESTATION [facility] OF INC [id number] MAT CARE 03-24-2016 [facility] OT HEALTH KNWN/SUSP MEDICAL POOR FTL GROUP GRTH 2ND TRI UNS Z3492 ENC 03-24-2016 [facility] SUPERVISION HEALTH NORMAL [place] UNS 2 TRIMESTER Z3A23 23 WEEKS 03-24-2016 [facility] GESTATION HEALTH OF MEDICAL GROUP U10969 SUPERVISION 03-21-2016 [facility] OTH HIGH PHYSICIANS RISK PREG GROUP SECOND TRIMESTER Z3A21 21 WEEKS 03-21-2016 [facility] GESTATION PHYSICIANS OF GROUP O2692 03-20-2016 [facility] RELATED PHYSICIANS, CONDITIONS PLLC UNS 2ND TRIMESTER Z3A24 24 WEEKS 03-20-2016 [facility] GESTATION [facility] OF [facility] Z3201 ENCOUNTER 03-05-2016 [facility] GROUP TEST RESULT POSITIVE 29766 ABDOMINAL 07-05-2014 [facility] OTHER REGIONAL SPECIFIED MEDICAL C SITE 08105 ABDOMINAL 05-09-2014 [facility], RADIOLOGY UNSPECIFIED PLLC SITE Medications Na ND Rx Da Fi Fi Am Da Di Ph RX Ph St me C No te ll ll ou ys ag ar # ys at rm s nt no ma ic us Or Da si cy ia de te s n re d BU 45 09 10 30 30 00 RI Ac RI 96 -0 -0 .0 00 TE ti [...] CY TA #3 BL 93 ET 8 NO 68 08 09 21 28 00 RI Ac RE 46 -3 -2 .0 00 TE ti TH 20 0- 2- 00 01 ve IN 13 20 20 17 AI D- 28 17 17 67 D ET 1 70 PH H AR ES MA TR CY AD #3 1- 93 0. 8 02 MG GA 62 08 09 3. 3 00 RI Ac BA 75 -2 -2 00 00 TE ti PE 60 6- 2- 0 00 ve NT 20 20 20 83 AI IN 20 17 17 47 D 1 98 PH 60 AR 0 MA MG CY TA #1 BL 60 ET 7 CL 16 08 09 90 30 00 [...] #3 93 MG 8 TA BL ET BR 64 08 09 24 6 00 [...] 17 62 D E 5 96 PH RI AR OP MA CY 50 #3 MC 93 G 8 SP RA Y RI 00 08 09 7. 7 00 RI Ac OP 22 -0 -0 00 00 TE ti RA 82 8- 1- 0 01 ve NO 77 20 20 19 AI LO 81 17 17 46 D L 1 86 PH ER AR MA 60 CY MG #3 93 CA 8 PS UL E BU 45 08 09 30 30 00 RI Ac RI 96 -0 -0 .0 00 TE ti [...] #3 1- 93 0. 8 02 MG RI 68 08 09 7. 3 00 RI Ac AM 46 -0 -0 00 00 TE ti IP 20 8- 1- 0 01 ve EX 33 20 20 19 AI OL 09 17 17 46 D E 0 84 PH 0. AR 12 MA 5 CY MG #3 TA 93 BL 8 ET SE 69 07 08 75 30 00 RI Ac RT 09 -2 -1 .0 00 TE ti RA 70 4- 8- 00 01 ve LI 83 20 20 18 AI NE 50 17 17 03 D 2 73 PH HC AR L MA 10 CY 0 MG #3 93 TA 8 BL ET GA 62 07 08 30 30 00 RI Ac BA 75 -2 -1 .0 00 TE ti PE 60 3- 8- 00 01 ve NT 20 20 20 19 AI IN 20 17 17 28 D 1 19 PH 60 AR 0 MA MG CY TA #3 BL 93 ET 8 CL 16 07 08 90 30 00 [...] MG #1 21 TA 2 BL ET NO 68 07 08 21 28 00 RI Ac RE 46 -1 -0 .0 00 TE ti TH 20 2- 4- 00 01 ve IN 13 20 20 17 AI D- 28 17 17 67 D ET 1 70 PH H AR ES MA TR CY AD #3 1- 93 0. 8 02 MG RI 68 07 08 30 15 00 RI Ac AM 46 -1 -0 .0 00 TE ti IP 20 1- 4- 00 01 ve EX 33 20 20 19 AI OL 09 17 17 13 D E 0 19 PH 0. AR 12 MA 5 CY MG #3 TA 93 BL 8 ET RI 00 07 08 30 30 00 RI Ac OP 22 -1 -0 .0 00 TE ti RA 82 1- 4- 00 01 ve NO 77 20 20 19 AI LO 81 17 17 13 D L 1 20 PH ER AR MA 60 CY MG #3 93 CA 8 PS UL E BU 45 07 07 30 30 00 RI Ac RI 96 -0 -2 .0 00 TE ti OP 30 2- 8- 00 01 ve IO 14 20 20 18 AI N 23 17 17 03 D HC 0 74 PH L AR XL MA CY 30 0 #3 MG 93 8 TA BL ET RI 65 07 07 20 5 00 RI Ac OM 16 -0 -2 .0 00 TE ti ET 20 5- 8- 00 01 ve BOJORQUEZ 52 20 20 19 AI ZI 11 17 17 06 D NE 0 61 PH AR 25 MA CY MG #3 TA 93 BL 8 ET NA 68 07 07 20 10 00 RI Ac RI 46 -0 -2 .0 00 TE ti [...] 1 64 PH CE AR TA MA SC CY NO PH #3 N 93 10 [...] 05 06 30 30 00 RI Ac RI 96 -0 -0 .0 00 TE ti [...] 1 23 PH CE AR TA MA SC CY NO PH #3 N 93 10 8 -3 25 CI 00 04 05 14 7 00 RI Ac RI 14 -2 -1 .0 00 TE ti [...] BL #3 ET 93 8 NO 68 04 05 21 28 00 RI Ac RE 46 -2 -1 .0 00 TE ti TH 20 1- 9- 00 01 ve IN 13 20 20 17 AI D- 28 17 17 67 D ET 1 70 PH H AR ES MA TR CY AD #3 1- 93 0. 8 02 MG ZO 13 04 05 23 23 00 [...] 03 04 30 30 00 RI Ac RI 37 -3 -2 .0 00 TE ti [...] CY TA BL #1 ET 60 7 BU 10 02 03 30 30 00 RI Ac RI 37 -1 -1 .0 00 TE ti [...] CY TA BL #1 ET 60 7 RI 00 01 02 30 7 00 RI [...] 1 60 PH CE AR TA MA SC CY NO PH #5 91 7. 5- 32 5 Procedures Procedure DOS Code Location Performer Comment URNLS DIP 19609 [facility] 7 [facility] STICK/TAB INC INC LET RGNT AUTO W/O MICROSCOP Y THER 49607 [facility] PROPH/DX 7 [facility] NJX EA INC INC SEQL IV PUSH SBST/DRUG FAC URINE 01889 [facility]UU 7 [facility] TEST INC [place] [address] [facility] INFUSION 7 [facility] THERAPY/P INC INC ROPHYLAXI S /DX 1ST TO 1 HR THERAPEUT 55254 [facility] IC 7 [facility] INJECTION INC INC IV PUSH EACH NEW DRUG COMPREHEN 42607 [facility] SIVE 7 [facility] METABOLIC INC INC PANEL DRUG TEST 49708 [facility] PRSMV 7 [facility] QUAL DIR INC INC OPTICAL OBS PER DAY UNCLASSIF J3490 [facility] IED DRUGS 7 [facility] INC INC RADEX 74619 [facility] ABDOMEN 1 7 [facility] [place] [address] [facility] ABDOMEN & 7 [facility] PELVIS INC INC W/O CONTRAST MATERIAL THERAPEUT 21526 [facility] IC 7 [facility] PROPHYLAC INC INC TIC/DX INJECTION SUBQ/IM UNCLASSIF J3490 [facility] IED DRUGS 7 [facility] INC INC COMPREHEN 96735 [facility] SIVE 7 [facility] METABOLIC INC INC PANEL URNLS DIP 17572 [facility] LUU 7 [facility] STICK/TAB INC INC LET REAGENT AUTO MICROSCOP Y BLOOD 47207 [facility] COUNT 7 [facility] COMPLETE INC INC AUTO&AUTO DIFRNTL WBC URINE 44181 [facility] LUU 7 [facility] TEST INC INC VISUAL COLOR CMPRSN METHS CULTURE 09338 [facility] BACTERIAL 7 [facility] INC INC QUANTTAT[place] [address] [facility] LIPASE 7 [facility] INC INC COLLECTIO 68902 [facility] N VENOUS 7 [facility] [place] [address] [facility] AMYLASE 7 [facility] INC INC THER 75735 [facility] PROPH/DX 7 [facility] NJX EA INC INC SEQL IV PUSH SBST/[place] [address] [facility] LIPASE 7 [facility] INC INC URINE 13442 [facility] LUU 7 [facility] TEST INC INC VISUAL COLOR CMPRSN METHS BLOOD 44587 [facility] COUNT 7 [facility] COMPLETE INC INC AUTO&AUTO DIFRNTL WBC URNLS DIP 16470 [facility] LUU 7 [facility] STICK/TAB INC INC LET REAGENT AUTO MICROSCOP Y THERAPEUT 39551 [facility] IC 7 [facility] INJECTION INC [place] [address] [facility] INFUSION 7 [facility] THERAPY/P INC INC ROPHYLAXI S /DX 1ST TO 1 HR COMPREHEN 54502 [facility] SIVE 7 [facility] METABOLIC INC INC PANEL UNCLASSIF J3490 [facility] L[facility] IED DRUGS 7 [place] [address] [facility] L[facility] ABDOMEN & 7 [facility] PELVIS INC INC W/O CONTRAST MATERIAL RADEX 26424 [facility] ABDOMEN 1 7 [facility] INC INC ANTEROPOS [place] COMPREHEN 25819 [facility] L[facility] SIVE 7 [facility] METABOLIC INC INC PANEL UNCLASSIF J3490 [facility] IED DRUGS 7 [facility] INC INC DRUG TEST 15928 [facility] L[facility] PRSMV 7 [facility] QUAL DIR INC INC OPTICAL OBS PER DAY BLOOD 72228 [facility] COUNT 7 [facility] COMPLETE INC INC AUTO&AUTO DIFRNTL WBC URINE 60079 [facility]UU 7 [facility] TEST INC INC VISUAL COLOR CMPRSN METHS THERAPEUT 76086 [facility] IC 7 [facility] PROPHYLAC INC INC TIC/DX INJECTION SUBQ/IM CULTURE 73191 [facility] BCT 7 [facility] ISOL&PRSM INC INC PTV ID ISOLATE EA URINE URINE 77147 [facility] 7 [facility] TEST INC INC VISUAL COLOR CMPRSN METHS THER 16480 [facility] PROPH/DX 7 [facility] NJX EA INC INC SEQL IV PUSH SBST/DRUG FAC CULTURE 97585 BE[facility] BRIDGESNE BACTERIAL 7 [facility] INC QUANTTATI VE COLONY COUNT URINE URNLS DIP 75359 BE[facility] MALIA 7 [facility] STICK/TAB INC LET REAGENT AUTO MICROSCOP Y BLOOD 90868 [facility] L[facility] COUNT 7 [facility] COMPLETE INC INC AUTO&[place] [address] [facility] INFUSION 7 [facility] THERAPY/P INC INC ROPHYLAXI S /DX 1ST TO 1 HR SUSCEPTIB 38648 [facility] LTY STDY 7 [facility] ANTIMICRB INC INC IAL MICRO/AGA R DILUTJ THERAPEUT 75836 [facility] IC 7 [facility] INJECTION INC INC IV PUSH EACH NEW DRUG COMPREHEN 59553 [facility] SIVE 7 [facility] METABOLIC INC INC PANEL UNCLASSIF J3490 [facility] L[facility] IED DRUGS 7 [place] [address] [facility] L[facility] ABDOMEN & 7 [facility] PELVIS INC INC W/O CONTRAST MATERIAL SUSCEPTIB 63097 ISLAM ISLAM LTY STDY 7 [facility] ANTIMICRB [facility] IAL MICRO/AGA R DILUTJ URNLS DIP 00450 ISLAM ISLAM [address] [place] [address] STICK/TAB [facility] LET REAGENT AUTO MICROSCOP Y POSTPARTU 99347 IS[facility] [place] M [address] MEDICAL SEPARATE GROUP PROCEDURE CUL BACT 91388 ISLAM ISLAM AEROBIC 7 [facility] ADDL [facility] METHS DEFINITIV E EA ISOL CULTURE 08674 ISLAM ISLAM TYPING 7 [facility] IMMUNOLOG [facility] IC OTH/THN IMMUNOFLU ORES CULTURE 39535 ISLAM ISLAM BACTERIAL 7 [facility] QUANTTATI VE COLONY COUNT URINE BREAST E0603 [facility] PUMP 7 DIS[facility] MEDICAL MEDICAL ANY TYPE [facility] INC[facility] H[facility] 14398 ISLAM BOWMAN DISCHARGE 7 [facility] MEDICAL MANAGEMEN GROUP T 30 MIN/< SBSQ [address] CARE/DAY MEDICAL 15 GROUP MINUTES VAGINAL 05678 [facility] [place] DELIVERY 7 [facility] NEURAXIAL 57055 ISLAM PETRONA LABOR 7 ANESTHESI ANALG/ANE A PSC S PLND VAGINAL DELIVERY DOPPLER 96304 ISLAM ZULY VELOCIMET 7 [facility] MEDICAL UMBILICAL GROUP ARTERY INITIAL [address] [place] [address] HEALTH CARE/DAY MEDICAL 30 GROUP MINUTES 60054 ISLAMMyrtle CARUSO BIOPHYSIC 7 [facility] [place] MEDICAL PROFILE GROUP W/O NON-STRES S TESTING US PREG 53334 ISLAM CARUSO UTERUS 7 HEALTH REAL TIME MEDICAL F/U GROUP TRNSABDL PER FETUS 00188 ISLAM ISLAM NONSTRESS 7 HEALTH HEALTH TEST [facility] 20472 ISLAM BOWMAN NONSTRESS 7 HEALTH TEST MEDICAL GROUP 73353 ISLAM ISLAM NONSTRESS 7 HEALTH HEALTH TEST [facility] 42574 ISLAM DANIELLE BIOPHYSIC 7 HEALTH AL MEDICAL PROFILE GROUP NON-STRES S TESTING HOSPITAL G0378 ISLAM ISLAM OBSERVATI 7 HEALTH HEALTH ON [facility] SERVICE PER HOUR 12667 ISLAM DANIELLE BIOPHYSIC 7 HEALTH [facility] MEDICAL PROFILE GROUP NON-STRES S TESTING CUL 60881 ISLAM ISLAM PRSMPTV 7 [facility]ALTH HEALTH PTHGNC [facility] ORGANISM SCRN W/COLONY ESTIMJ IAADIADOO 00893 ISLAM ISLAM 7 HEALTH HEALTH STREPTOCO [facility] [place]US GROUP A [address] ISLAM BOWMAN NONSTRESS 7 HEALTH TEST MEDICAL GROUP DRUG TEST 29536 ISLAM ISLAM PRSMV 7 HEALTH HEALTH QUAL [facility] INSTRMNT OPTCL OBS PER DAY 96503 ISLAM ISLAM BIOPHYSIC 7 HEALTH HEALTH AL [facility] PROFILE W/O NON-STRES S TESTING THER 01900 ISLAM ISLAM PROPH/DX 7 HEALTH HEALTH NJX EA [facility] SEQL IV PUSH SBST/DRUG FAC OBSERVATI 96580 ISLAM BOWMAN ON CARE 7 HEALTH DISCHARGE MEDICAL GROUP MANAGEMEN T INJ J0702 ISLAM ISLAM BETAMETHA 7 HEALTH HEALTH SONE [facility] ACETATE & PHOSPHATE 3 MG CALCULUS 41435 ISLAM ISLAM QUANTITAT 7 HEALTH HEALTH SUZAN [facility] CHEMICAL US PREG 82860 ISLAM ISLAM UTERUS 7 HEALTH HEALTH REAL TIME [facility] F/U TRNSABDL PER FETUS THERAPEUT 84352 ISLAM ISLAM IC 7 HEALTH HEALTH PROPHYLAC [facility] TIC/DX INJECTION SUBQ/IM INJECTION J1170 ISLAM ISLAM 7 HEALTH HEALTH HYDROMORP [facility] PHIL UP TO 4 MG INJECTION J2550 ISLAM ISLAM 7 HEALTH HEALTH PROMETHAZ [facility] INE HCL UP TO 50 MG COMPREHEN 60970 ISLAM QUEST SIVE 7 HEALTH DIAGNOSTI METABOLIC [place] PANEL INCORPORA T INJECTION J2405 ISLAM ISLAM 7 [facility] ONDANSETR [facility] ON HCL PER 1 MG INJECTION J2550 ISLAM ISLAM 7 [facility] PROMETHAZ [facility] INE HCL UP TO 50 MG THER 88174 ISLAM ISLAM PROPH/DX 7 [facility] NJX IV [facility] PUSH SINGLE/1S T SBST/DRUG INJECTION J1170 ISLAM ISLAM 7 HEALTH HEALTH HYDROMORP [facility] PHIL UP TO 4 MG THERAPEUT 98893 ISLAM ISLAM IC 7 [facility] INJECTION [facility] IV PUSH EACH NEW DRUG URNLS DIP 01973 ISLAM LAB INDER 7 HEALTH FADI STICK/TAB [place] HOLDING LET REAGENT AUTO MICROSCOP Y INJ J0702 ISLAM ISLAM BETAMETHA 7 [facility] SONE [facility] ACETATE & PHOSPHATE 3 MG THER 92778 ISLAM ISLAM PROPH/DX 7 [facility] NJX EA [facility] SEQL IV PUSH SBST/DRUG FAC 60307 ISLAM BOWMAN BIOPHYSIC 7 HEALTH AL MEDICAL PROFILE GROUP NON-STRES S TESTING HOSPITAL G0378 ISLAM ISLAM OBSERVATI 7 [facility]ALTH HEALTH ON [facility] SERVICE PER HOUR 68131 ISLAM ISLAM NONSTRESS 7 HEALTH HEALTH TEST [facility] INJECTION J2790 ISLAM BOWMAN RHO D IG 7 [facility] FULL DOSE GROUP 300 MCG THERAPEUT 64136 ISLAM BOWMAN IC 7 HEALTH PROPHYLAC MEDICAL TIC/DX GROUP INJECTION SUBQ/IM COMPREHEN 95892 [facility] LUU SIVE 7 [facility] METABOLIC INC INC PANEL UNCLASSIF J3490 [facility] L[facility] IED DRUGS 7 [facility] INC INC URNLS DIP 09910 [facility] LUU 7 [facility] STICK/TAB INC [place] [address] BE[facility] LUU RETROPERI 7 [facility] TONEAL INC [place] W/[place] [address] PAT PERRY RETROPERI 7 MEDICAL TONEAL IMAGING REAL [place] W/[place] [address] BE[facility] LUU INFUSION 7 [facility] THERAPY/P INC INC ROPHYLAXI S /DX 1ST TO 1 [place] 9[address] [facility] L[facility] BIOPHYSIC 7 [facility] AL INC INC PROFILE W/O NON-STRES S TESTING DOPPLER 89387 BELL GREGG VELOCIMET 7 [place] [address] BELL LUU 7 [facility] UTERUS INC INC LIMITED 1/> FETUSES ANTIBODY 10898 BE[facility] LUU SCREEN 7 [facility] RBC EACH INC INC SERUM TECHNIQUE CALCULUS 87906 [facility] L[facility] XRAY 7 [facility] DIFFRACTI INC INC ON THER 16740 [facility] PROPH/DX 7 [facility] NJX EA INC INC SEQL IV PUSH SBST/DRUG FAC THERAPEUT 48092 [facility] L[facility] IC 7 [facility] INJECTION INC [place] [address] BE[facility] LUU INFUSION 7 [facility] THERAPY/P INC INC ROPHYLAXI S /DX 1ST TO 1 HR THERAPEUT 54667 [facility] IC [facility] PROPHYLAC INC INC TIC/DX INJECTION SUBQ/IM URNLS DIP 27545 [facility] STICK/TAB INC INC LET REAGENT AUTO MICROSCOP Y CULTURE 74986 [facility] BACTERIAL 7 [facility] INC INC QUANTTATI VE COLONY COUNT URINE CREATININ 49429 [facility] E BLOOD 7 [facility] INC INC 83120 [facility] DANII NONSTRESS 7 PHYSICIAN TEST S GROUP URNLS DIP 18183 [facility] STICK/TAB INC INC [place] [address] [facility] UREA 7 [facility] NITROGEN INC INC QUANTITAT SUZAN COLLECTIO 30796 [facility] N VENOUS 7 [facility] BLOOD INC INC VENIPUNCT URE UNCLASSIF J3490 [facility] IED DRUGS 7 [facility] INC INC THER 08999 [facility] PROPH/DX 7 [facility] NJX IV INC INC PUSH SINGLE/1S T SBST/DRUG THERAPEUT 96136 [facility] IC 7 [facility] INJECTION INC INC IV PUSH EACH NEW DRUG THERAPEUT 95946 [facility] IC 7 [facility] PROPHYLAC INC INC TIC/DX INJECTION SUBQ/IM UNCLASSIF J3490 [facility] IED DRUGS 7 [facility] INC INC OBSERVATI 84113 [facility] DANII ON CARE 6 PHYSICIAN DISCHARGE S GROUP MANAGEMEN INITIAL 33184 [facility] DANII OBSERVATI 6 PHYSICIAN ON S GROUP CARE/DAY 50 MINUTES US PREG 56475 ISLAM ISLAM UTERUS 6 [facility] W/DETAIL [facility] JULIÁN 1ST GESTATION OBSERVATI 85983 [facility] DANII ON CARE 6 PHYSICIAN [...] INC READ DC OPT OBV ONLY INITIAL 04694 [facility] DANII OBSERVATI 6 PHYSICIAN ON S GROUP CARE/DAY 30 MINUTES THERAPEUT 79038 [facility] IC 6 [facility] PROPHYLAC INC INC TIC/DX INJECTION SUBQ/IM URNLS DIP 60061 [facility] 6 [facility] STICK/TAB INC INC LET REAGENT AUTO MICROSCOP Y DRUG TST G0477 [facility] DANII PRESUMP;C 6 PHYSICIAN PBL BEING S GROUP READ DC OPT OBV ONLY URINE 54309 [facility] 5 REGIONAL TEST MEDICAL VISUAL C COLOR CMPRSN METHS SVC PRV 11406 [facility] OFFICE 5 REGIONAL REG MEDICAL SCHEDD C EVN WKEND/HOL IDAY HRS IAADIADOO 89061 [facility] 5 REGIONAL INFLUENZA MEDICAL C URNLS DIP 47275 [facility] 5 REGIONAL STICK/TAB MEDICAL LET RGNT C NON-AUTO W/O MICRSCP IAADIADOO 21766 [facility] 5 [facility] [place] [address] [employer]KJOHNNIE POOLE ABDOMEN & 5 [facility] W/O PLLC CONTRAST MATERIAL Encounters Encounter Start End Date Code Location Performer Type Date OFFICE 39910 [facility] 7 7 [facility] T VISIT [facility] INC MINUTES [facility] - 7 7 [facility] 86613 [facility] 7 7 [facility] T VISIT HIGH/URGE NT SEVERITY EMERGENCY 44381 BRENDEN BOYD DEPT 7 7 PHYSICIAN VISIT S, [facility] HIGH SEVERITY& [facility] - 7 7 [facility] EMERGENCY 35532 BE[facility] 7 7 [facility] T VISIT [facility]IGH/URGE NT SEVERITY HOSPITAL BE[facility] - 7 7 [facility] 12919 BRENDEN HENNING DEPT 7 7 PHYSICIAN U VISIT S, [facility] HIGH SEVERITY& THREAT FUN EMERGENCY [id number] BELL 7 7 [facility] DE[facility]MEN INC T VISIT HIGH/URGE NT SEVERITY HOSPITAL BELL - 7 7 [facility] OUTPATIEN INC T EMERGENCY 46210 BRENDEN BOYD 7 7 PHYSICIAN DEPARTMEN [facility] T VISIT HIGH/URGE NT SEVERITY EMERGENCY [id number] BELL PEREZ 7 7 [facility] III DEPARTMEN INC T VISIT MODERATE SEVERITY HOSPITAL BE[facility] - 7 7 [facility] INC T [facility]OSPITAL BELL - 7 7 [facility] OUTPATIEN INC T EMERGENCY 49255 BRENDEN EDDY DEPT 7 7 PHYSICIAN VISIT S, [facility] HIGH SEVERITY& THREAT FUNCJ EMERGENCY 80727 BELL 7 7 [facility]IGH/URGE NT SEVERITY HOSPITAL ISLAM - 7 7 HEALTH OUTPATIEN [facility] ISLAM - 7 7 [facility]ALTH INPATIENT [place] OFFICE 26959 ISLAM BOWMAN OUTPATIEN 7 7 HEALTH T VISIT MEDICAL 15 [facility] ISLAM - 7 7 HEALTH OUTPATIEN [facility] OFFICE 51694 ISLAM BOWMAN OUTPATIEN 7 7 HEALTH T VISIT MEDICAL 15 [facility] ISLAM - 7 7 HEALTH OUTPATIEN [facility] OFFICE 35390 ISLAM DANIELLE OUTPATIEN 7 7 HEALTH T VISIT MEDICAL 15 [facility] OFFICE 20503 ISLAM DANIELLE OUTPATIEN 7 7 HEALTH T VISIT MEDICAL 15 [facility] ISLAM - 7 7 HEALTH OUTPATIEN [facility] OFFICE 49622 ISLAM BOWMAN OUTPATIEN 7 7 HEALTH T VISIT MEDICAL 15 [facility] ISLAM - 7 7 HEALTH OUTPATIEN [facility] OFFICE 23193 ISLAM BOWMAN OUTPATIEN 7 7 HEALTH T VISIT MEDICAL 15 GROUP MINUTES OFFICE 13027 ISLAM BOWMAN OUTPATIEN 7 7 HEALTH T NEW 45 MEDICAL MINUTES [facility] BELL - 7 7 [facility] OUTPATIEN INC T EMERGENCY 07215 BELL 7 7 [facility] DEPARTMEN INC T VISIT MODERATE SEVERITY EMERGENCY 35523 BRENDEN EDDY DEPT 7 7 PHYSICIAN VISIT S, [facility] HIGH SEVERITY& THREAT FUN HOSPITAL BELL - 7 7 [facility] OUTPATIEN INC [facility] PHYSICIAN T VISIT S GROUP 15 MINUTES EMERGENCY 90313 BELL 7 7 [facility] DEPARTMEN INC T VISIT MODERATE SEVERITY HOSPITAL BELL - 7 7 [facility] OUTPATIEN INC T EMERGENCY 37508 BRENDEN MOJICA DEPT 7 7 PHYSICIAN VISIT S, [facility] HIGH SEVERITY& THREAT FUNCJ EMERGENCY 41966 BRENDEN HENNING 7 7 PHYSICIAN U DEPARTMEN S, [facility] T VISIT HIGH/URGE NT SEVERITY HOSPITAL BELL - 7 7 [facility] OUTPATIEN INC T EMERGENCY 31978 BELL 7 7 [facility] DEPARTMEN INC T VISIT LOW/MODER SEVERITY HOSPITAL BELL - 6 6 [facility] INPATIENT INC OFFICE 67465 ISLAM MARVIN CONSULTAT 6 6 HEALTH ION MEDICAL NEW/ESTAB GROUP PATIENT 15 MIN HOSP[facility] - 6 [facility] 6 6 [facility] OUTPATIEN INC T HOSPITAL BELL - 6 6 [facility] OUTPATIEN INC T EMERGENCY 66508 BELL 6 6 [facility] DEPARTMEN INC T VISIT LOW/MODER SEVERITY EMERGENCY 75066 BRENDEN EDDY 6 6 PHYSICIAN DEPARTMEN S, [facility] T VISIT MODERATE SEVERITY OFFICE 09100 [facility] DANII HARDY 6 6 PHYSICIAN T NEW 45 S GROUP MINUTES OFFICE 72698 [facility] MARICEL WILKERSONEN 5 5 REGIONAL T VISIT MEDICAL 15 C MINUTES
--- OUTSIDE RECORDS SUMMARY | 2017-02-15 17:22 | External Medical Summary Rpt | CCD ---
Author Author , BOLIVAR Organization BOLIVAR Address Unknown Phone [email or web address] Providers Care Ager Tender Name Role Phone [facility] Unavailable Unavailable [facility] Unavailable Unavailable [facility], [facility] Unavailable Unavailable [facility], [facility] CARUSO, CARUSO Unavailable Unavailable DANIELLE, DANIELLE Unavailable Unavailable BROWN MARICEL, BROWN MARICEL Unavailable Unavailable FOY, FOY Unavailable Unavailable ANA III, ANA Unavailable Unavailable III ORLANDO, ORLANDO Unavailable Unavailable NUNU, NUNU Unavailable Unavailable [facility] Unavailable [facility]available [facility] Un[facility] Un[facility] INC, [facility] HEMMER, HEMMER Unavailable Unavailable HIETT, HIETT Unavailable Unavailable [facility] Unavailable Unavailable MEDICAL C, [facility] C [facility], Unavailable Unavailable [facility] MOJICA, MOJICA Unavailable Unavailable [facility] Un[facility] INDER FADI Unavailable [...] HEMATURIA 12-22-2016 [facility]PECIF[facility] INC [id number] PERSONAL 12-22-2016 [facility] HISTORY OF [facility] URINARY INC CALCULI R109 UNSPECIFIED 11-05-2016 [facility] PAIN PLLC R1084 GENERALIZED 10-03-2016 [facility]AL [facility] PAIN INC N132 HYDRONEPHRO 09-04-2016 [facility] SIS W/RENAL [facility] URETRL INC CALCULOUS OBST N200 CALCULUS OF 09-04-2016 [facility] KIDNEY [facility], [facility] R1031 RIGHT LOWER 09-04-2016 [facility] N23 UNSPECIFIED 08-25-2016 [facility] RENAL PHYSICIANS, COLIC [facility] R300 DYSURIA 07-17-2016 [facility] Z391 ENCNTR FOR 07-17-2016 [facility] EXAMINATION MEDICAL LACTATING GROUP MOTHER Z392 ENCOUNTER 07-17-2016 [facility] FOR ROUTINE HEALTH MEDICAL FOLLOW-UP GROUP O133 GESTATIONAL 06-25-2016 [facility] HTN W/O ANESTHESIA SIG PSC PROTEINURIA THIRD TRI O80 ENCOUNTER 06-25-2016 [facility] FOR ANESTHESIA FULL-TERM PSC UNCOMPLICAT ED DELIVERY Z370 SINGLE LIVE 06-25-2016 [facility] ANESTHESIA PSC O134 GESTATIONAL 06-24-2016 [facility] HTN W/O HEALTH SIGNIF [place] PROTEINURIA COMP CB [id number] MAT CARE 06-24-2016 [facility] OT HEALTH KNWN/SUSP MEDICAL POOR FTL GROUP GRTH 3RD TRI UNS O665 ATTEMPTED 06-24-2016 [facility] V[facility]UUM MEDICAL EXTRACTOR & GROUP FORCEPS [id number] L & D COMP 06-24-2016 [facility] CORD AROUND HEALTH NECK W/O [place] COMPRS NA/UNS Z2913 ENCOUNTER 06-24-2016 [facility] FOR HEALTH PROPHYLACTI [facility] C RHO IMMUNE GLOBULIN Z3A36 36 WEEKS 06-24-2016 [facility] GESTATION HEALTH OF MEDICAL GROUP O163 UNSPECIFIED 06-20-2016 [facility] MATERNAL HEALTH HYPERTENSIO [facility] N 3RD TRIMESTER Q26800 OTHER SPEC 06-20-2016 [facility] RELATED MEDICAL COND 3RD GROUP TRIMESTER O288 OTH 06-20-2016 [facility] ABNORMAL HEALTH FIND ON [place] SCREENING MOTHER [id number] MATERNAL 06-20-2016 [facility] CARE [facility] HEALTH SPEC MEDICAL PROB 3RD GROUP TRI NA/UNS Z3A35 35 WEEKS 06-17-2016 [facility] GESTATION [facility] OF MEDICAL GROUP O289 UNS 06-13-2016 [facility] ABNORMAL HEALTH FIND ON [place] SCREENING MOTHER [id number] OLIGOHYDRAM 06-13-2016 [facility] NIOS THIRD HEALTH TRIMESTER MEDICAL NA/UNS GROUP E669 OBESITY 06-10-2016 [facility] UNSPECIFIED HEALTH MEDICAL GROUP Z3A34 34 WEEKS 06-10-2016 [facility] GESTATION [facility] OF MEDICAL GROUP Z3A33 33 WEEKS 06-03-2016 [facility] GESTATION [facility]ALTH OF MEDICAL GROUP O210 MILD 05-28-2016 [facility] HYPEREMESIS [facility]ALTH [facility] Z418 ENC OTH 05-28-2016 [facility] PROC HEALTH PURPOSES MEDICAL OTH THAN GROUP [facility] STATE N1330 UNSPECIFIED 05-25-2016 [facility] HYDRONEPHRO IMAGING ASS SIS O4443 LOW LYING 05-25-2016 [facility] NOS/WO IMAGING ASS HEMORRHAGE 3RD TRIM O4703 FALSE LABOR 05-25-2016 [facility] BEFORE 37 [facility] CMPLETE INC WEEKS GEST 3RD TRI Z331 05-25-2016 [facility] INCIDENTAL IMAGING ASS Z3A32 32 WEEKS 05-25-2016 [facility] GESTATION [facility] OF INC [id number] 05-16-2016 [facility] RELATED PHYSICIANS, RENAL PLLC DISEASE THIRD TRIMESTER [id number] STRAIN 05-16-2016 [facility] MUSCLE FASC [facility] & TENDON INC NECK LEVL INIT ENC [id number] STRAIN 05-16-2016 [facility] MUSCLE [facility] FASCIA & INC TENDON LOW BACK INITIAL [id number] UNSPECIFIED 05-16-2016 [facility] SPRAIN OF [facility] LEFT HIP INC INITIAL ENCOUNTER Z3480 ENC 05-15-2016 [facility] SUPERVISION PHYSICIANS OTH NORMAL GROUP PREG UNS TRIMESTER Z3A30 30 WEEKS 05-09-2016 [facility] GESTATION [facility] OF INC O9989 OTH DZ & 05-08-2016 [facility] COND COMP PHYSICIANS, PREG PLLC CHILDBIRTH PUERPERIUM Z3483 ENC 05-08-2016 [facility] SUPERVISION [facility] OTH NORMAL INC 3 TRIMESTER Z3A31 31 WEEKS 05-08-2016 [facility] GESTATION PHYSICIANS, OF PLLC C27154 OTHER SPEC 03-31-2016 [facility] RELATED INC COND 2ND TRIMESTER Z3A26 26 WEEKS 03-31-2016 [facility] GESTATION [facility] OF INC [id number] MAT CARE 03-24-2016 [facility] OT HEALTH KNWN/SUSP MEDICAL POOR FTL GROUP GRTH 2ND TRI UNS Z3492 ENC 03-24-2016 [facility] SUPERVISION HEALTH NORMAL [place] UNS 2 TRIMESTER Z3A23 23 WEEKS 03-24-2016 [facility] GESTATION HEALTH OF MEDICAL GROUP S10841 SUPERVISION 03-21-2016 [facility] OTH HIGH PHYSICIANS RISK PREG GROUP SECOND TRIMESTER Z3A21 21 WEEKS 03-21-2016 [facility] GESTATION PHYSICIANS OF GROUP O2692 03-20-2016 [facility] RELATED PHYSICIANS, CONDITIONS PLLC UNS 2ND TRIMESTER Z3A24 24 WEEKS 03-20-2016 [facility] GESTATION [facility] OF [facility] Z3201 ENCOUNTER 03-05-2016 [facility] TEST RESULT POSITIVE 90839 ABDOMINAL 07-05-2014 [place] PAIN OTHER REGIONAL SPECIFIED MEDICAL C SITE 24738 ABDOMINAL 05-09-2014 [place] [facility], RADIOLOGY UNSPECIFIED PLLC SITE Medications Na ND Rx Da Fi Fi Am Da Di Ph RX Ph St me C No te ll ll ou ys ag ar # ys at rm s nt no ma ic us Or Da si cy ia de te s n re d BU 45 09 10 30 30 00 RI Ac DE 96 -0 -0 .0 00 TE ti [...] 17 62 D E 5 96 PH DE AR OP MA CY 50 #3 MC 93 G 8 SP RA Y DE 00 08 09 7. 7 00 RI Ac OP 22 -0 -0 00 00 TE ti RA 82 8- 1- 0 01 ve NO 77 20 20 19 AI LO 81 17 17 46 D L 1 86 PH ER AR MA 60 CY MG #3 93 CA 8 PS UL E BU 45 08 09 30 30 00 RI Ac DE 96 -0 -0 .0 00 TE ti [...] #3 1- 93 0. 8 02 MG DE 68 08 09 7. 3 00 RI [...] #3 1- 93 0. 8 02 MG DE 68 07 08 30 15 00 RI Ac AM 46 -1 -0 .0 00 TE ti IP 20 1- 4- 00 01 ve EX 33 20 20 19 AI OL 09 17 17 13 D E 0 19 PH 0. AR 12 MA 5 CY MG #3 TA 93 BL 8 ET DE 00 07 08 30 30 00 RI Ac OP 22 -1 -0 .0 00 TE ti RA 82 1- 4- 00 01 ve NO 77 20 20 19 AI LO 81 17 17 13 D L 1 20 PH ER AR MA 60 CY MG #3 93 CA 8 PS UL E BU 45 07 07 30 30 00 RI Ac DE 96 -0 -2 .0 00 TE ti OP 30 2- 8- 00 01 ve IO 14 20 20 18 AI N 23 17 17 03 D HC 0 74 PH L AR XL MA CY 30 0 #3 MG 93 8 TA BL ET DE 65 07 07 20 5 00 RI Ac OM 16 -0 -2 .0 00 TE ti ET 20 5- 8- 00 01 ve BOJORQUEZ 52 20 20 19 AI ZI 11 17 17 06 D NE 0 61 PH AR 25 MA CY MG #3 TA 93 BL 8 ET NA 68 07 07 20 10 00 RI Ac DE 46 -0 -2 .0 00 TE ti [...] 1 64 PH CE AR TA MA AK CY NO PH #3 N 93 10 [...] 05 06 30 30 00 RI Ac DE 96 -0 -0 .0 00 TE ti [...] 1 23 PH CE AR TA MA AK CY NO PH #3 N 93 10 8 -3 25 CI 00 04 05 14 7 00 RI Ac DE 14 -2 -1 .0 00 TE ti [...] 03 04 30 30 00 RI Ac DE 37 -3 -2 .0 00 TE ti [...] 02 03 30 30 00 RI Ac DE 37 -1 -1 .0 00 TE ti [...] CY TA BL #1 ET 60 7 DE 00 01 02 30 7 00 RI [...] 1 60 PH CE AR TA MA AK CY NO PH #5 91 7. 5- 32 5 Procedures Procedure DOS Code Location Performer Comment URNLS DIP 24575 [facility] LUU 7 [facility] STICK/TAB INC INC LET RGNT AUTO W/O MICROSCOP Y THER 91162 [facility] PROPH/DX 7 [facility] NJX EA INC INC SEQL IV PUSH SBST/DRUG FAC URINE 75755 [facility] LUU 7 [facility] TEST INC [place] [address] [facility] LUU INFUSION 7 [facility] THERAPY/P INC INC ROPHYLAXI S /DX 1ST TO 1 HR THERAPEUT 27785 [facility] IC 7 [facility] INJECTION INC INC IV PUSH EACH NEW DRUG COMPREHEN 33500 [facility] SIVE 7 [facility] METABOLIC INC INC PANEL DRUG TEST 90980 [facility] PRSMV 7 [facility] QUAL DIR INC INC OPTICAL OBS PER DAY UNCLASSIF J3490 [facility] IED DRUGS 7 [facility] INC INC RADEX 98638 BE[facility] LUU ABDOMEN 1 7 [facility] [place] [address] [facility] ABDOMEN & 7 [facility] PELVIS INC INC W/O CONTRAST MATERIAL THERAPEUT 16844 [facility] IC 7 [facility] PROPHYLAC INC INC TIC/DX INJECTION SUBQ/IM UNCLASSIF J3490 [facility] IED DRUGS 7 [facility] INC INC COMPREHEN 04501 [facility] SIVE 7 [facility] METABOLIC INC INC PANEL URNLS DIP 80558 [facility] LUU 7 [facility] STICK/TAB INC INC LET REAGENT AUTO MICROSCOP Y BLOOD 94881 [facility] COUNT 7 [facility] COMPLETE INC INC AUTO&AUTO DIFRNTL WBC URINE 27684 [facility] LUU 7 [facility] TEST INC INC VISUAL COLOR CMPRSN METHS CULTURE 74443 [facility] BACTERIAL 7 [facility] INC INC QU[place]TT[place] [address] [facility] LIPASE 7 [facility] INC INC COLLECTIO 64955 [facility] N VENOUS 7 [facility] [place] [address] [facility] AMYLASE 7 [facility] INC INC THER 05230 [facility] PROPH/DX 7 [facility] NJX EA INC INC SEQL IV PUSH SBST/[place] [address] [facility] LIPASE 7 [facility] INC INC URINE 43177 [facility] LUU 7 [facility] TEST INC INC VISUAL COLOR CMPRSN METHS BLOOD 08808 [facility] COUNT 7 [facility] COMPLETE INC INC AUTO&AUTO DIFRNTL WBC URNLS DIP 18827 [facility] LUU 7 [facility] STICK/TAB INC INC LET REAGENT AUTO MICROSCOP Y THERAPEUT 78680 [facility] IC 7 [facility] INJECTION INC [place] [address] [facility] INFUSION 7 [facility] THERAPY/P INC INC ROPHYLAXI S /DX 1ST TO 1 HR COMPREHEN 31674 [facility] SIVE 7 [facility] METABOLIC INC INC PANEL UNCLASSIF J3490 [facility] IED DRUGS 7 [place] [address] [facility] ABDOMEN & 7 [facility] PELVIS INC INC W/O CONTRAST MATERIAL RADEX 50291 [facility] ABDOMEN 1 7 [facility] INC INC ANTEROPOS [place] COMPREHEN 35707 [facility] SIVE 7 [facility] METABOLIC INC INC PANEL UNCLASSIF J3490 [facility] IED DRUGS 7 [facility] INC INC DRUG TEST 64452 [facility] PRSMV 7 [facility] QUAL DIR INC INC OPTICAL OBS PER DAY BLOOD 27377 [facility] COUNT 7 [facility] COMPLETE INC INC AUTO&AUTO DIFRNTL WBC URINE 11498 [facility] LUU 7 [facility] TEST INC INC VISUAL COLOR CMPRSN METHS THERAPEUT 22547 [facility] IC 7 [facility] PROPHYLAC INC INC TIC/DX INJECTION SUBQ/IM CULTURE 67464 [facility] BCT 7 [facility] ISOL&PRSM INC INC PTV ID ISOLATE EA URINE URINE 02192 [facility] LUU 7 [facility] TEST INC INC VISUAL COLOR CMPRSN METHS THER 93991 [facility] PROPH/DX 7 [facility] NJX EA INC INC SEQL IV PUSH SBST/DRUG FAC CULTURE 32109 [facility] BRIDGESNE BACTERIAL 7 [facility] INC QUANTTATI VE COLONY COUNT URINE URNLS DIP 27787 [facility] MALIA 7 [facility] STICK/TAB INC LET REAGENT AUTO MICROSCOP Y BLOOD 80373 [facility] L[facility] COUNT 7 [facility] COMPLETE INC INC AUTO&[place] [address] [facility] INFUSION 7 [facility] THERAPY/P INC INC ROPHYLAXI S /DX 1ST TO 1 HR SUSCEPTIB 47695 [facility] LTY STDY 7 [facility]OS[facility] ANTIMICRB INC INC IAL MICRO/AGA R DILUTJ THERAPEUT 09057 [facility] IC 7 [facility] INJECTION INC INC IV PUSH EACH NEW DRUG COMPREHEN 35926 [facility] SIVE 7 [facility] METABOLIC INC INC PANEL UNCLASSIF J3490 [facility] IED DRUGS 7 [place] [address] [facility] ABDOMEN & 7 [facility] PELVIS INC INC W/O CONTRAST MATERIAL SUSCEPTIB 31062 [facility] LTY STDY [address] [facility] ANTIMICRB [facility] IAL MICRO/AGA R DILUTJ URNLS DIP 50133 [facility]ICAL [address] [place] [address] STICK/TAB [facility] LET REAGENT AUTO MICROSCOP Y POSTPARTU 79635 [facility] [place] M [address] MEDICAL SEPARATE GROUP PROCEDURE CUL BACT 39633 [facility] AEROBIC [address] [facility] ADDL [facility] METHS DEFINITIV E EA ISOL CULTURE 68686 [facility] TYPING [address] [facility] IMMUNOLOG [facility] IC OTH/THN IMMUNOFLU ORES CULTURE 04144 [facility]ICAL BACTERIAL 7 [facility] QUANTTATI VE COLONY COUNT URINE BREAST E0603 [facility] PUMP 7 DISCOUNT DISCEverwise MEDICAL MEDICAL ANY TYPE [facility] 62192 [facility] BOWMAN DISCHARGE 7 [facility] MEDICAL MANAGEMEN GROUP T 30 MIN/< SBSQ [address] CARE/DAY MEDICAL 15 GROUP MINUTES VAGINAL 57564 [facility] [place] DELIVERY 7 [facility] NEURAXIAL 01854 [facility] [place] LABOR 7 ANESTHESI ANALG/ANE A PSC S PLND VAGINAL DELIVERY DOPPLER 48565 [facility] ZULY VELOCIMET [address] [facility] MEDICAL UMBILICAL GROUP ARTERY INITIAL [address] [place] [address] HEALTH CARE/DAY MEDICAL 30 GROUP MINUTES 14206 [facility] BIOPHYSIC 7 [facility] MEDICAL PROFILE GROUP W/O NON-STRES S TESTING US PREG 81163 [facility] UTERUS 7 HEALTH REAL TIME MEDICAL F/U GROUP TRNSABDL PER FETUS 06475 [facility] NONSTRESS 7 [facility]ALTH HEALTH TEST [facility] 95226 [facility] NONSTRESS 7 HEALTH TEST MEDICAL GROUP 33273 [facility] NONSTRESS 7 [facility]ALTH HEALTH TEST [facility] 61805 [facility] DANIELLE BIOPHYSIC 7 HEALTH AL MEDICAL PROFILE GROUP NON-STRES S TESTING HOSPITAL G0378 [facility] OBSERVATI 7 [facility]ALTH HEALTH ON [facility] SERVICE PER HOUR 27534 [facility] DANIELLE BIOPHYSIC 7 HEALTH AL MEDICAL PROFILE GROUP NON-STRES S TESTING CUL 05189 [facility] PRSMPTV 7 [facility] HEALTH PTHGNC [facility] ORGANISM SCRN W/COLONY ESTIMJ IAADIADOO 95524 [facility] EVANGELICAL 7 HEALTH HEALTH STREPTOCO [facility] CCUS GROUP A 15783 [facility] NONSTRESS 7 HEALTH TEST MEDICAL GROUP DRUG TEST 87961 [facility] PRSMV 7 HEALTH HEALTH QUAL [facility] INSTRMNT OPTCL OBS PER DAY 46757 [facility] BIOPHYSIC 7 [facility]ALTH HEALTH AL [facility] PROFILE W/O NON-STRES S TESTING THER 52723 [facility] EVANGELICAL PROPH/DX 7 HEALTH HEALTH NJX EA [facility] SEQL IV PUSH SBST/DRUG FAC OBSERVATI 04046 [facility] ON CARE 7 HEALTH DISCHARGE MEDICAL GROUP MANAGEMEN T INJ J0702 [facility]ICAL BETAMETHA 7 [facility]ALTH HEALTH SONE [facility] ACETATE & PHOSPHATE 3 MG CALCULUS 46206 [facility] QUANTITAT 7 HEALTH HEALTH SUZAN [facility] CHEMICAL US PREG 49981 [facility]ICAL UTERUS 7 HEALTH HEALTH REAL TIME [facility] F/U TRNSABDL PER FETUS THERAPEUT 74351 [facility] EVANGELICAL IC 7 HEALTH HEALTH PROPHYLAC [facility] TIC/DX INJECTION SUBQ/IM INJECTION J1170 [facility] EVANGELICAL 7 HEALTH HEALTH HYDROMORP [facility] PHIL UP TO 4 MG INJECTION J2550 [facility] EVANGELICAL 7 HEALTH HEALTH PROMETHAZ [facility] INE HCL UP TO 50 MG COMPREHEN 42034 EV[facility]ICAL QUEST SIVE 7 HEALTH DIAGNOSTI METABOLIC DONAHUE CS PANEL INCORPORA T INJECTION J2405 [facility] EVANGELICAL 7 [facility] HEALTH ONDANSETR [facility] ON HCL PER 1 MG INJECTION J2550 [facility]ICAL EVANGELICAL 7 [facility] HEALTH PROMETHAZ [facility] INE HCL UP TO 50 MG THER 26617 [facility] EVANGELICAL PROPH/DX 7 [facility] HEALTH NJX IV [facility] PUSH SINGLE/1S T SBST/DRUG INJECTION J1170 EVANG[facility]ICAL EVANGELICAL 7 HEALTH HEALTH HYDROMORP [facility] PHIL UP TO 4 MG THERAPEUT 91926 [facility] EVANGELICAL IC 7 [facility] HEALTH INJECTION [facility] IV PUSH EACH NEW DRUG URNLS DIP 27156 [facility] LAB INDER 7 HEALTH FADI STICK/TAB DONAHUE HOLDING LET REAGENT AUTO MICROSCOP Y INJ J0702 [facility]ICAL EVANGELICAL BETAMETHA 7 [facility] HEALTH SONE [facility] ACETATE & PHOSPHATE 3 MG THER 99936 EV[facility]ICAL EVANGELICAL PROPH/DX 7 [facility] HEALTH NJX EA [facility] SEQL IV PUSH SBST/DRUG FAC 80513 [facility]MAN BIOPHYSIC 7 HEALTH AL MEDICAL PROFILE GROUP NON-STRES S TESTING HOSPITAL G0378 [facility] EV[facility]ICAL OBSERVATI 7 HEALTH HEALTH ON [facility] SERVICE PER HOUR 10021 [facility] EVANGELICAL NONSTRESS 7 HEALTH HEALTH TEST [facility] INJECTION J2790 [facility] B[facility] RHO D IG 7 [facility] HUMAN MEDICAL FULL DOSE GROUP 300 MCG THERAPEUT 91515 [facility] BOWMAN IC 7 HEALTH PROPHYLAC MEDICAL TIC/DX GROUP INJECTION SUBQ/IM COMPREHEN 22856 [facility] LUU SIVE 7 [facility] METABOLIC INC INC PANEL UNCLASSIF J3490 [facility] IED DRUGS 7 [facility] INC INC URNLS DIP 57677 [facility] LUU 7 [facility] STICK/TAB INC [place] [address] [facility] RETROPERI 7 [facility] TONEAL INC [place] W/[place] [address] PAT PERRY RETROPERI 7 MEDICAL TONEAL IMAGING [place] W/[place] [address] [facility] INFUSION 7 [facility] THERAPY/P INC INC ROPHYLAXI S /DX 1ST TO 1 HR 29824 [facility] BIOPHYSIC 7 [facility] AL INC INC PROFILE W/O NON-STRES S TESTING DOPPLER 30133 BLEL GREGG VELOCIMET 7 [place] [address] [facility] LUU 7 [facility] UTERUS INC INC LIMITED 1/> FETUSES ANTIBODY 59440 [facility] SCREEN 7 [facility] RBC EACH INC INC SERUM TECHNIQUE CALCULUS 51738 [facility] XRAY 7 [facility]OS[facility] DIFFRACTI INC INC ON THER 39175 [facility] PROPH/DX 7 [facility] NJX EA INC INC SEQL IV PUSH SBST/DRUG FAC THERAPEUT 01897 [facility] IC 7 [facility] INJECTION INC [place] [address] [facility] INFUSION 7 [facility] THERAPY/P INC INC ROPHYLAXI S /DX 1ST TO 1 HR THERAPEUT 61367 [facility] IC 7 [facility] PROPHYLAC INC INC TIC/DX INJECTION SUBQ/IM URNLS DIP 23521 [facility] LUU 7 [facility] STICK/TAB INC INC LET REAGENT AUTO MICROSCOP Y CULTURE 34761 [facility] BACTERIAL 7 [facility] INC INC QUANTTATI VE COLONY COUNT URINE CREATININ 70189 [facility] E BLOOD 7 [facility]OS[facility] INC INC 31410 [facility] DANII NONSTRESS 7 PHYSICIAN TEST S GROUP URNLS DIP 86698 [facility] LUU 7 [facility] STICK/TAB INC INC [place] [address] [facility] LUU UREA 7 [facility] NITROGEN INC INC QUANTITAT SUZAN COLLECTIO 83986 [facility] N VENOUS 7 [facility] BLOOD INC INC VENIPUNCT URE UNCLASSIF J3490 BE[facility] IED DRUGS 7 [facility]OS[facility] INC INC THER 06288 [facility] PROPH/DX 7 [facility] NJX IV INC INC PUSH SINGLE/1S T SBST/DRUG THERAPEUT 64852 [facility] IC 7 [facility] INJECTION INC INC IV PUSH EACH NEW DRUG THERAPEUT 65068 [facility] IC 7 [facility] PROPHYLAC INC INC TIC/DX INJECTION SUBQ/IM UNCLASSIF J3490 [facility] IED DRUGS 7 [facility] INC INC OBSERVATI 46302 [facility] DANII ON CARE 6 PHYSICIAN DISCHARGE S GROUP MANAGEMEN INITIAL 67583 [facility] DANII OBSERVATI 6 PHYSICIAN ON S GROUP CARE/DAY 50 MINUTES [place] PREG 32192 [facility] EV[facility]ICAL UTERUS [address] [facility] W/DETAIL [facility] JULI[facility] 1ST GESTATION OBSERVATI 15351 [facility] DANII ON CARE 6 PHYSICIAN [...] INC READ DC OPT OBV ONLY INITIAL 03460 [facility] DANII OBSERVATI 6 PHYSICIAN ON S GROUP CARE/DAY 30 MINUTES THERAPEUT 93056 [facility] LUU IC 6 [facility] PROPHYLAC INC INC TIC/DX INJECTION SUBQ/IM URNLS DIP 46536 [facility] LUU 6 [facility] STICK/TAB INC INC LET REAGENT AUTO MICROSCOP Y DRUG TST [id number] [facility] DANII PRESUMP;C 6 PHYSICIAN PBL BEING S GROUP READ DC OPT OBV ONLY URINE [id number] [facility] 5 REGIONAL TEST MEDICAL VISUAL C COLOR CMPRSN METHS SVC PRV [id number] [facility] OFFICE 5 REGIONAL REG MEDICAL SCHEDD C EVN WKEND/HOL IDAY HRS IAADIADOO 88366 [facility] 5 REGIONAL INFLUENZA MEDICAL C URNLS DIP 43375 [facility] 5 REGIONAL STICK/TAB MEDICAL LET RGNT C NON-AUTO W/O MICRSCP IAADIADOO 89519 [facility] 5 [facility] [place] [address] PIKJOHNNIE POOLE ABDOMEN & 5 [facility] W/O PLLC CONTRAST MATERIAL Encounters Encounter Start End Date Code Location Performer Type Date OFFICE 17000 [facility]ARDY 7 7 [facility] T VISIT 5 INC MINUTES [facility]OSPITAL [facility] - 7 7 [facility] 14034 BELL 7 7 [facility] T VISIT [facility]IGH/URGE NT SEVERITY EMERGENCY 35878 BRENDEN BOYD DEPT 7 7 PHYSICIAN VISIT S, [facility] HIGH SEVERITY& THREAT [facility] BELL - 7 7 [facility] OUTPATIEN [facility] EMERGENCY 04780 BELL 7 7 [facility] T VISIT [facility]IGH/URGE NT SEVERITY HOSPITAL BELL - 7 7 [facility] EMERGENC[facility] 57876 BRENDEN HENNING DEPT 7 7 PHYSICIAN U [facility]ISIT S, [facility] HIGH SEVERITY& THREAT FUN EMERGENCY 45467 BELL 7 7 [facility] DEPARTMEN INC T VISIT HIGH/URGE NT SEVERITY HOSPITAL BELL - 7 7 [facility] OUTPATIEN INC T EMERGENCY 08610 BRENDEN BOYD 7 7 PHYSICIAN DEPARTMEN [facility] T VISIT HIGH/URGE NT SEVERITY EMERGENCY 60388 BELL PEREZ 7 7 [facility] III DEPARTMEN INC T VISIT MODERATE SEVERITY HOSPITAL BELL - 7 7 [facility] OUTPATIEN INC T HOSPITAL BLEL - 7 7 [facility] OUTPATIEN INC T EMERGENCY 87606 BRENDEN EDDY DEPT 7 7 PHYSICIAN VISIT S, [facility] HIGH SEVERITY& THREAT [facility] EMERGENCY 18216 BELL 7 7 [facility] HIGH/URGE NT SEVERITY HOSPITAL EVANGELICAL - 7 7 HEALTH OUTPATIEN [facility] EVANGELICAL - 7 7 HEALTH INPATIENT [facility] OFFICE [id number] [facility] OUTPATIEN 7 7 HEALTH T VISIT MEDICAL 15 [facility] EVANGELICAL - 7 7 HEALTH OUTPATIEN [facility] OFFICE 28099 [facility] OUTPATIEN 7 7 HEALTH T VISIT MEDICAL 15 [facility]ELICAL - 7 7 HEALTH OUTPATIEN [facility] OFFICE 97708 EV[facility] DANIELLE OUTPATIEN 7 7 HEALTH T VISIT MEDICAL 15 [facility] OFFICE 86976 [facility] DANIELLE OUTPATIEN 7 7 HEALTH T VISIT MEDICAL 15 [facility]ANGELICAL - 7 7 HEALTH OUTPATIEN [facility] OFFICE 04370 [facility] OUTPATIEN 7 7 HEALTH T VISIT MEDICAL 15 [facility] EVANGELICAL - 7 7 HEALTH OUTPATIEN [facility] OFFICE 14979 [facility] B[facility] OUTPATIEN 7 7 HEALTH T VISIT MEDICAL 15 GROUP MINUTES OFFICE 66206 [facility] OUTPATIEN 7 7 HEALTH T NEW 45 MEDICAL MINUTES [facility] BELL - 7 7 [facility] OUTPATIEN INC T EMERGENCY 48748 BELL 7 7 [facility] DEPARTMEN INC T VISIT MODERATE SEVERITY EMERGENCY 92772 BRENDEN EDDY DEPT 7 7 PHYSICIAN VISIT S, [facility] HIGH SEVERITY& THREAT FUN HOSPITAL BELL - 7 7 [facility] OUTPATIEN INC T OFFICE 69792 [facility] T VISIT S GROUP 15 MINUTES EMERGENCY 72587 BELL 7 7 [facility] DEPARTMEN INC T VISIT MODERATE SEVERITY HOSPITAL BELL - 7 7 [facility] OUTPATIEN INC T EMERGENCY 19998 BRENDEN MOJICA DEPT 7 7 [facility] H[facility] SEVER[facility]& THREAT F[facility]J EMERGENCY 94849 BRENDEN HENNING 7 7 PHYSICIAN U DEPARTMEN S, [facility] T VISIT HIGH/URGE NT SEVERITY HOSPITAL BELL - 7 7 [facility] OUTPATIEN INC T EMERGENCY 50064 BELL 7 7 [facility] DEPARTMEN INC T VISIT LOW/MODER SEVERITY [facility]OSPITAL [facility] - 6 6 [facility] INPATIENT INC OFFICE 14003 [facility] 6 6 HEALTH ION MEDICAL NEW/ESTAB GROUP PATIENT 15 MIN [facility] T [facility] - 6 6 [facility] OUTPATIEN INC T EMERGENCY 94767 BELL 6 6 [facility] DEPARTMEN INC T VISIT LOW/MODER SEVERITY EMERGENCY 28059 BRENDEN EDDY 6 6 PHYSICIAN DEPARTMEN S, [facility] T VISIT MODERATE SEVERITY OFFICE 79441 [facility] DANII HARDY 6 6 PHYSICIAN T NEW 45 S GROUP MINUTES OFFICE 00553 [facility] MARICEL WILKERSONEN 5 5 REGIONAL T VISIT MEDICAL 15 C MINUTES
--- OUTSIDE RECORDS SUMMARY | 2017-02-15 17:23 | External Medical Summary Rpt | CCD ---
Demographics Preferred Language Kinyarwanda Marital Status Unknown Congregational Affiliation Unknown Race Unknown Ethnic Group Unknown Author Author BOLIVAR Address Unknown Phone Immunization No patient found.
--- OUTSIDE RECORDS SUMMARY | 2017-02-15 17:23 | External Medical Summary Rpt | CCD ---
Demographics Preferred Language Chinese Marital Status Unknown Christianity Affiliation Unknown Race Unknown Ethnic Group Unknown Author Author BOLIVAR Address Unknown Phone Immunization No patient found.
--- OUTSIDE RECORDS SUMMARY | 2017-02-15 17:24 | External Medical Summary Rpt ---
Author Author [employer], [employer] Organization [employer] Address Unknown Phone Unavailable Results Urinalysis dipstick W Reflex Microscopic panel in Urine Observa Value Referen Units Interpr Notes Date tion ce etation Range Appeara TURBID CLEAR No No No Feb 15 nce of informa informa informa 2017 Urine tion in tion in tion in 4:40 PM source source source data data data Bacteri 2+ O No No No Feb 15 a informa informa informa 2016 [Presen tion in tion in tion in 4:40 PM ce] in source source source Urine data data data sedimen t by Light microsc opy Bilirub NEGATIV NEG No No BILIRUB Feb 15 in E informa informa IN 2016 [Presen tion in tion in CONFIRM 4:40 PM ce] in source source ED WITH Urine data data by Test ICTOTES strip T Erythro 3+ NEG No Abnorma No Feb 15 cytes informa l informa 2016 [Presen tion in tion in 4:40 PM ce] in source source Urine data data Color KUMAR YELLOW No No No Feb 15 of informa informa informa 2017 Urine tion in tion in tion in 4:40 PM source source source data data data Glucose NEG No No No Feb 15 [Mass/vol informati informati informati 2016 4:40 ume] in on in on in on in PM Urine by source source source Test data data data strip Ketones 1+ NEG mg/dL Abnorma No Feb 15 l informa 2016 [Presen tion in 4:40 PM ce] in source Urine data by Automat ed test strip Mucus TRACE NEG No Abnorma No Feb 15 [Presen informa l informa 2017 ce] in tion in tion in 4:40 PM Urine source source sedimen data data t by Light microsc opy Nitrite NEGATIV NEG No No No Feb 15 E informa informa informa 2016 [Presen tion in tion in tion in 4:40 PM ce] in source source source Urine data data data by Test strip pH of 5.0 - 8.5 No Normal No Feb 15 Urine informati informati 2017 4:40 on in on in PM source source data data Protein NEG mg/dL High No Feb 15 [Mass/vol informati 2017 4:40 ume] in on in PM Urine by source Automated data test strip Erythro TNTC 0 rbc/hpf No No Feb 15 cytes informa informa 2016 [Presen tion in tion in 4:40 PM ce] in source source Urine data data sedimen t by Light microsc opy Specific 1.005 - No Normal No Feb 15 gravity 1.030 informati informati 2017 4:40 of Urine on in on in PM source source data data Epithel 10-20 0 - 5 #/hpf No No Feb 15 ial informa informa 2017 cells.s tion in tion in 4:40 PM quamous source source data data [Presen ce] in Urine sedimen t by Microsc opy high power field Urobili 0.2 NEG E.U./dL No No Feb 15 nogen informa informa 2016 [Presen tion in tion in 4:40 PM ce] in source source Urine data data by Test strip Leukocyte O wbc/hpf No No Feb 15 s informati informati 2017 4:40 [#/volume on in on in PM ] in source source Urine data data Urinalysis dipstick W Reflex Microscopic panel in Urine Observa Value Referen Units Interpr Notes Date tion ce etation Range Appeara TURBID CLEAR No No No Feb 15 nce of informa informa informa 2017 Urine tion in tion in tion in 4:40 PM source source source data data data Bilirub NEGATIV NEG No No BILIRUB Feb 15 in E informa informa IN 2017 [Presen tion in tion in CONFIRM 4:40 PM ce] in source source ED WITH Urine data data by Test ICTOTES strip T Erythro 3+ NEG No Abnorma No Feb 15 cytes informa l informa 2016 [Presen tion in tion in 4:40 PM ce] in source source Urine data data Color KUMAR YELLOW No No No Feb 15 of informa informa informa 2017 Urine tion in tion in tion in 4:40 PM source source source data data data Glucose NEG No No No Feb 15 [Mass/vol informati informati informati 2016 4:40 ume] in on in on in on in PM Urine by source source source Test data data data strip Ketones 1+ NEG mg/dL Abnorma No Feb 15 l inform2016 [Presen tion in 4:40 PM ce] in source Urine data by Automat ed test strip Mucus TRACE NEG No Abnorma No Feb 15 [Presen informa l inform2016 ce] in tion in tion in 4:40 PM Urine source source sedimen data data t by Light microsc opy Nitrite NEGATIV NEG No No No Feb 15 E informa informa informa 2016 [Presen tion in tion in tion in 4:40 PM ce] in source source source Urine data data data by Test strip pH of 5.0 - 8.5 No Normal No Feb 15 Urine informati informati 2016 4:40 on in on in PM source source data data Protein NEG mg/dL High No Feb 15 [Mass/vol informati 2016 4:40 ume] in on in PM Urine by source Automated data test strip Specific 1.005 - No Normal No Feb 15 gravity 1.030 informati informati 2016 4:40 of Urine on in on in PM source source data data Urobili 0.2 NEG E.U./dL No No Feb 15 nogen informa inform2016 [Presen tion in tion in 4:40 PM ce] in source source Urine data data by Test strip Choriogonadotropin.beta subunit [Units] in 24 hour Urine Observa Value Referen Units Interpr Notes Date tion ce etation Range Choriogon NEG No No No Feb 15 adotropin informati informati informati 2017 4:40 .beta on in on in on in PM subunit source source source [Units] data data data in 24 hour Urine Drugs identified in Urine by Screen method Observa Value Referen Units Interpr Notes Date tion ce etation Range Positive urine drug screen samples are stored for 7 days. Contact the Lab if confirmation of positives is needed. Ampheta NEGATIV <1000 ng/mL No No Nov 05 mine E informa informa 2016 [Presen tion in tion in 4:30 PM ce] in source source Urine data data by Screen method Barbitura <200 ng/mL No No Nov 05 addis informati informati 2017 4:30 [Mass/vol on in on in PM ume] in source source Urine by data data Screen method Benzodiaz 200 ng/mL ng/mL High This is Nov 05 epines an 2017 4:30 [Mass/vol UNCONFIRM PM ume] in ED Serum or result. Plasma by This Screen result is method for medicalpu rposes and/or treatment only. Cocaine <300 ng/g No No Nov 05 [Mass/vol informati informati 2016 4:30 ume] in on in on in PM Unspecifi source source ed data data specimen Methadone <300 ng/mL No No Nov 05 informati informati 2016 4:30 [Mass/vol on in on in PM ume] in source source Unspecifi data data ed specimen Opiates <300 ng/mL No No Nov 05 [Mass/vol informati informati 2016 4:30 ume] in on in on in PM Unspecifi source source ed data data specimen Phencycli <25 ng/mL No No Nov 05 dine informati informati 2016 4:30 [Mass/vol on in on in PM ume] in source source Unspecifi data data ed specimen 11-Hydr NEGATIV <50 ng/mL No No Nov 05 oxy E informa informa 2017 delta-9 tion in tion in 4:30 PM source source tetrahy data data drocann abinol [Presen ce] in Unspeci fied specime n Choriogonadotropin.beta subunit [Units] in 24 hour Urine Observa Value Referen Units Interpr Notes Date tion ce etation Range Choriogon NEG No No No Nov 05 adotropin informati informati informati 2017 4:30 .beta on in on in on in PM subunit source source source [Units] data data data in 24 hour Urine Comprehensive metabolic 2000 panel in Serum or Plasma Observa Value Referen Units Interpr Notes Date tion ce etation Range Albumin/G 1.1 - 1.8 No Normal No Nov 05 lobulin informati informati 2016 4:05 [Mass on in on in PM ratio] in source source Serum or data data Plasma Albumin 3.4 - 5.0 gm/dL Normal No Nov 05 [Mass/vol informati 2017 4:05 ume] in on in PM Serum or source Plasma data Alkaline 46 - 116 U/L Normal No Nov 05 phosphata informati 2016 4:05 se on in PM [Enzymati source c data activity/ volume] in Serum or Plasma Bilirubin 0.2 - 1.0 mg/dL Normal No Nov 05 .total informati 2016 4:05 [Mass/vol on in PM ume] in source Serum or data Plasma Urea 7 - 18 mg/dL Normal No Nov 05 nitrogen informati 2016 4:05 [Mass/vol on in PM ume] in source Serum or data Plasma Calcium 8.5 - mg/dL Normal No Nov 05 [Mass/vol 10.1 informati 2016 4:05 ume] in on in PM Serum or source Plasma data Chloride 98 - 107 mmoL/L Normal No Nov 05 [Moles/vo informati 2016 4:05 lume] in on in PM Serum or source Plasma data Carbon 21.0 - mmoL/L Normal No Nov 05 dioxide, 32.0 informati 2016 4:05 total on in PM [Moles/vo source lume] in data Serum or Plasma Creatinin 0.55 - mg/dL Normal No Nov 05 e 1.02 informati 2016 4:05 [Mass/vol on in PM ume] in source Serum or data Plasma Creatinin 50 - 200 ML/MIN Normal No Nov 05 e renal informati 2016 4:05 clearance on in PM source predicted data by Cockcroft -Gault formula Estimated 59- ML/MIN No REFERENCE Nov 05 informati RANGE: 2017 4:05 glomerula on in >60 PM r source ML/MIN/1. filtratio data 73 SQUARE n rate METERSIf (GF this patient is -A merican, then multiply theresult by 1.210. Globulin 1.3 - 3.2 gm/dL High No Nov 05 [Mass/vol informati 2016 4:05 ume] in on in PM Serum source data Glucose 74 - 106 mg/dL Normal No Nov 05 [Mass/vol informati 2016 4:05 ume] in on in PM Serum or source Plasma data Potassium 3.5 - 5.1 mmoL/L Normal No Nov 05 informati 2016 4:05 [Moles/vo on in PM lume] in source Serum or data Plasma Sodium 136 - 145 mmoL/L Normal No Nov 05 [Moles/vo informati 2016 4:05 lume] in on in PM Serum or source Plasma data Aspartate 15 - 37 U/L Normal No Nov 05 informati 2016 4:05 aminotran on in PM sferase source [Enzymati data c activity/ volume] in Serum or Plasma Alanine 12 - 78 U/L Normal No Nov 05 aminotran informati 2016 4:05 sferase on in PM [Enzymati source c data activity/ volume] in Serum or Plasma Protein 6.4 - 8.2 gm/dL Normal No Nov 05 [Mass/vol informati 2016 4:05 ume] in on in PM Serum or source Plasma data Calculi, Urinary Observa Value Referen Units Interpr Notes Date tion ce etation Range Color Brown . No No Oct 03 of informa informa 7 2016 Stone tion in tion in 1437:CO 7:20 PM source source GWEN data data previou sly reporte d as: TAN10/02 08/18 1437:CY DELMI previou sly reporte d as: MP Size . mm No 10/15/16 Oct 03 [Entitic informati 1436:SIZE 2017 7:20 volume] on in PM of Stone source previousl data y reported as: FRAGMENTE DSpecimen received as fragments .10/15/161436:CELL ULAR MATER previousl y reported as: SEE ABOVE Nidus No . No No Oct 03 [Presen Nidus informa informa 7 2016 ce] in visuali tion in tion in 1437:NI 7:20 PM Stone zed source source DUS data data previou sly reporte d as: NOT VISUALI ZED10/02 08/18 143:MORRIS RF CRYSTAL S previou sly reporte d as: SEE ABOVE Calculu Comment . No No Specime Oct 03 s : informa informa n 2016 analysi tion in tion in appears 7:20 [...] Please Comment . No No Calculi Oct 03 note: informa informa report 2017 tion in tion in 7:20 PM source source without data data photogr aph will follow via compute r,mail, or perfect binder feeder offbearer deliver y. Comment Comment . No No Physici Oct 2 : informa informa an 2017 tion in tion in questio 7:20 PM source source ns data data regardi ng Calculi Analysi s contact [facility] at: . Weight of . mg No 10/15/16 Oct [...] Adminis tration .Perfor med at: - [facility] [place] [address] [id number] Directo r: Ezekiel Clayton MD, Phone: [phone] Composi Comment . No No SPECIME Brian 2 tion informa informa N 2017 tion [...] % Normal No Brian 2 /100 informati 2016 6:15 leukocyte on in PM [...] data Hemoglobi 12.2 - g/dL Low No Brian 2 n 16.2 informati 2017 6:15 [Mass/vol [...] Normal No Brian 2 s 10.8 informati 2016 6:15 [#/volume on in PM [...] September 04 [Presen Nidus informa informa informa 2016 ce] in visuali tion in tion [...] ng Calculi Analysi s contact [facility] at: [phone]. Weight of . mg No No September 04 Stone informati informati 2017 9:20 on in on in PM source source data data Please Comment . No No Calculi September 04 note: informa informa report 2017 tion in tion in with 9:20 PM source source photogr data data aph will follow via compute r,mail or perfect binder feeder offbearer deliver y. Disclai Comment . No No This September 04 amira: informa informa test 2017 tion in tion in was 9:20 PM source source develop data data ed and its perform ance charact eristic sdeterm ined by [facility] . It has not been cleared orappro hortencia by the Food and Drug Adminis tration .Perfor med at: BN - [facility] [address] [id number] Directo r: Ezekiel Clayton MD, Phone: [phone] Composi Comment . No No Percent September [...]
--- OUTSIDE RECORDS SUMMARY | 2017-02-15 17:24 | External Medical Summary Rpt ---
[...] aph will follow via compute r,mail, or printing supplies sales representative deliver y. Comment Comment . No No Physici Oct 2 : informa informa an 2017 tion in tion in questio 7:20 PM source source ns data data regardi ng Calculi Analysi s contact [facility] at: [phone]. Weight of . mg No 10/15/16 Oct [...] Adminis tration .Perfor med at: - [facility] [place] [address] [id number] Directo r: Ezekiel Clayton MD, Phone: [phone] Composi Comment . No No SPECIME Brian [...] opy Bilirub NEGATIV NEG No No No Rbian 2 in E informa informa informa 2017 [...] ng Calculi Analysi s contact [facility] at: [phone]. Weight of . mg No No September 04 Stone informati informati 2017 9:20 on in on in PM source source data data Please Comment . No No Calculi September 04 note: informa informa report 2017 tion in tion in with 9:20 PM source source photogr data data aph will follow via compute r,mail or printing supplies sales representative deliver y. Disclai Comment . No No This September 04 amira: informa informa test 2017 tion in tion in was 9:20 PM source source develop data data ed and its perform ance charact eristic sdeterm ined by [facility] . It has not been cleared orappro hortencia by the Food and Drug Adminis tration .Perfor med at: BN - [facility] [address] [id number] 61Lab Directo r: Ezekiel Clayton MD, Phone: [phone] Composi Comment . No No Percent September [...]
[2017-02-15 17:54] VITALS: BP 125/81
== END 2017-02-15 17:55 | disposition home or self-care (01) ==
LOC: ER 16:32
PROVIDERS: Emergency Medicine
DX: R31.9 Hematuria, unspecified (principal); R10.11 Right upper quadrant pain; Z88.0 Allergy status to penicillin; Z88.6 Allergy status to analgesic agent

== ENCOUNTER 2017-03-16 15:34 | Inpatient (IN) | payer MEDICAID ==
[~2017-03-16] VITALS: Ht 162.6 cm; Wt 80.5 kg
--- OUTSIDE RECORDS SUMMARY | 2017-03-16 15:44 | External Medical Summary Rpt | CCD ---
Author Author , [facility] Organization [facility] Address Unknown Phone [email or web address] Purpose Continuity of Care Document - 03-22-2012 through 2016 Problems Code Diagnosis DOS Provider Status F41.9 ANXIETY 03-09-2017 DISORDER, UNSPECIFIED R10.31 RIGHT LOWER 03-09-2017 QUADRANT PAIN R11.2 NAUSEA WITH 03-09-2017 VOMITING, UNSPECIFIED Z87.442 PERSONAL 03-09-2017 HISTORY OF URINARY CALCULI Z88.0 ALLERGY 03-09-2017 STATUS TO PENICILLIN Z88.5 ALLERGY 03-09-2017 STATUS TO NARCOTIC AGENT STATUS Z88.8 ALLERGY 03-09-2017 STATUS TO OTHER DRUGS, MEDICAMENTS AND BIOLOGICAL SUBSTANCES STATUS 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 R30.0 DYSURIA 02-24-2017 R31.9 HEMATURIA, 02-24-2017 UNSPECIFIED R35.0 FREQUENCY 02-24-2017 OF MICTURITION N23 UNSPECIFIED 02-19-2017 RENAL COLIC R10.30 LOWER 02-19-2017 ABDOMINAL PAIN, UNSPECIFIED Z96.60 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 IMPLANT N20.1 CALCULUS OF URETER N39.0 URINARY TRACT INFECTION, SITE NOT SPECIFIED R10.9 UNSPECIFIED ABDOMINAL PAIN Z33.1 STATE, INCIDENTAL Allergies, Adverse Reactions, Alerts Adverse Reaction to Substance Substance Reaction Severity NKA Results Labs Lab Lab Date Result Refere Interp Status Commen Order Detail nces retati t Range on Urinalysis with microscopy (02-15-2017 16:40) Urine = OCC O complet leukocy 017 wbc/hpf ed robert 16:40 count (number /volume ) Urine 0.2 0.2 NEG complet urobili 017 L ed nogen 16:40 E.U./dL detecti on by test str Squamou 10-20 0-5 complet s 017 10-20 L ed epithel 16:40 #/hpf ial cells detecti on in u Urine = 1.025 1.005-1 complet specifi 017 .030 ed c 16:40 gravity measure ment Erythro TNTC 0 complet cytes 017 TNTC L ed detecti 16:40 rbc/hpf on in urine sedimen t Urine = TRACE NEG complet protein 017 mg/dL ed 16:40 measure ment by automat ed t Urine = 6.0 5.0-8.5 complet pH 017 ed 16:40 Urine NEGATIV NEG complet nitrite 017 E ed 16:40 NEGATIV detecti E L on by test strip Mucus TRACE NEG complet detecti 017 TRACE L ed on in 16:40 urine sedimen t by lig Urine 1+ 1+ L NEG complet ketones 017 mg/dL ed 16:40 detecti on by automat ed robert Glucose = NEG complet ur 017 NEGATIV ed test 16:40 E strip Urine KUMAR YELLOW complet color 017 KUMAR L ed 16:40 Urine 3+ 3+ L NEG complet blood 017 ed detecti 16:40 on Urine NEGATIV NEG complet total 017 E ed bilirub 16:40 NEGATIV in E L detecti on by test Comment: BILIRUBIN CONFIRMED WITH ICTOTEST Bacteri 2+ 2+ L O complet a 017 ed detecti 16:40 on in urine sedimen t by Urine TURBID CLEAR complet appeara 017 TURBID ed nce 16:40 L determi [facility] Urine test (02-15-2017 16:40) Urine = NEG complet pregnan 017 NEGATIV ed cy test 16:40 E Urinalysis dipstick W Reflex Microscopic panel in Urine (02-15-2017 16:40) Bacteri 2+ O complet a 017 ed [Presen 16:40 ce] in Urine sedimen t by Light microsc opy Erythro TNTC 0 complet cytes 017 ed [Presen 16:40 ce] in Urine sedimen t by Light microsc opy Epithel 10-20 0#/hp complet ial 017 f - ed cells.s 16:40 5#/hp quamous f [Presen ce] in Urine sedimen t by Microsc opy high power field Urinalysis dipstick W Reflex Microscopic panel in Urine (02-15-2017 16:40) Appeara TURBID CLEAR complet nce of 017 ed Urine 16:40 Bilirub NEGATIV NEG complet in 017 E ed [Presen 16:40 ce] in Urine by Test strip Erythro 3+ NEG Abnorma complet cytes 017 l ed [Presen 16:40 ce] in Urine Color KUMAR YELLOW complet of 017 ed Urine 16:40 Ketones 1+ NEG Abnorma complet 017 l ed [Presen 16:40 ce] in Urine by Automat ed test strip Mucus TRACE NEG Abnorma complet [Presen 017 l ed ce] in 16:40 Urine sedimen t by Light microsc opy Nitrite NEGATIV NEG complet 017 E ed [Presen 16:40 ce] in Urine by Test strip Urobili 0.2 NEG complet nogen 017 ed [Presen 16:40 ce] in Urine by Test strip Drugs identified in Urine by Screen method [...] Ab Ser Ql (06-27-2016 15:47) HCV Ab [id number] Non-[place] complet Ser 017 07 ctive ed Donr [...] 00 ed Bld 08:11 3 Auto Lymphoc 24-2 3.87 0.60-4. complet ytes # 017 10*3/mm 80 ed Bld 08:11 3 Auto Neutrop 02-24-2 9.30 1.50-8. complet hils # 017 10*3/mm 30 ed Bld 08:11 3 Auto Imm 24-2 0.6 % 0.0-0.6 complet Granulo 017 ed cytes 08:11 NFr Bld Basophi 06-27-2 0.1 % 0.0-1.0 complet ls NFr 017 ed Bld 08:11 Auto Eosinop 24-2 0.8 % 0.0-3.0 complet hil NFr 017 ed Bld 08:11 Auto Monocyt 24-2 6.4 % 0.0-12. complet es NFr 017 0 ed Bld 08:11 Auto Lymphoc 06-27-2 27.1 % 24.0-44 complet ytes 017 .0 ed NFr Bld 08:11 Auto Neutrop 06-27-2 65.0 % 41.0-71 complet hils 017 .0 ed NFr Bld 08:11 Auto Platele 06-27-2 214 150-450 complet t # Bld 017 10*3/mm ed Auto 08:11 3 PMV Bld 06-27-2 10.9 fL 6.0-12. complet Auto 017 0 ed 08:11 RDW RBC 06-27-2 54.1 fl 37.0-54 complet Auto 017 .0 [...] ed Bld 09:17 WBC Manual- Rto Imm 0223-2 0.03 0.00-0. complet Granulo 017 10*3/mm 03 ed cytes # 09:17 3 Bld Basophi 02-23-2 0.00 0.00-0. complet ls # 017 10*3/mm 20 ed Bld 09:17 3 Auto Eosinop -23-2 0.04 0.10-0. complet hil # 017 10*3/mm 30 ed Bld 09:17 3 Auto Monocyt -23-2 1.19 0.00-1. complet es # 017 10*3/mm 00 ed Bld 09:17 3 Auto Lymphoc -23-2 2.32 0.60-4. complet ytes # 017 10*3/mm 80 ed Bld 09:17 3 Auto Neutrop 23-2 11.04 1.50-8. complet hils # 017 10*3/mm 30 ed Bld 09:17 3 Auto Imm -23-2 0.2 % 0.0-0.6 complet Granulo 017 ed cytes 09:17 NFr Bld Basophi -23-2 0.0 % 0.0-1.0 complet ls NFr 017 ed Bld 09:17 Auto Eosinop -23-2 0.3 [...] 10*3/mm ed Auto 09:17 3 PMV Bld 23-2 11.6 fL 6.0-12. complet Auto 017 0 [...] ed cytes # 10:55 3 Bld Basophi 02-21-2 0.02 0.00-0. complet ls # 017 10*3/mm 20 ed Bld 10:55 3 Auto Eosinop -21-2 0.03 0.10-0. complet hil # 017 10*3/mm 30 ed Bld 10:55 3 Auto Monocyt -21-2 0.97 0.00-1. complet es # 017 10*3/mm 00 ed Bld 10:55 3 Auto Lymphoc -21-2 2.41 0.60-4. complet ytes # 017 10*3/mm 80 ed Bld 10:55 3 Auto Neutrop -21-2 6.85 1.50-8. complet hils # 017 10*3/mm [...] 017 0 ed Bld 10:55 Auto Lymphoc -21-2 23.4 % 24.0-44 complet ytes 017 .0 ed NFr Bld 10:55 Auto Neutrop -21-2 66.3 % 41.0-71 complet hils 017 .0 ed NFr Bld 10:55 Auto Platele -21-2 225 150-450 complet t # Bld 017 10*3/mm ed Auto 10:55 3 PMV Bld 21-2 11.6 fL 6.0-12. complet Auto 017 0 ed 10:55 RDW RBC -21-2 51.8 fl 37.0-54 complet Auto 017 .0 ed 10:55 RDW RBC 02-21-2 15.6 % 11.3-14 complet 017 .5 ed Auto-Rt 10:55 o MCHC 02-21-2 33.3 32.0-36 complet RBC 017 [...] g/dL .5 ed c 10:55 RBC # 02-21-2 3.64 3.89-5. complet Bld 017 10*6/mm 14 ed Auto 10:55 3 WBC -21-2 10.32 3.50-10 complet nRBC 017 10*3/mm .80 ed cor # 10:55 3 Bld Drugs Ur Scn (06-03-2016 14:44) Cannabi [id number] Negativ complet noids 017 09 e ed SerPl 14:44 Negativ Ql e SCT Bupreno [id number] Negativ complet rphine 017 09 e ed SerPl-m 14:44 Negativ Cnc e SCT Propoxy [id number] Negativ complet ph Ur 017 09 e ed Ql 14:44 Negativ e SCT Oxycodo [id number] Negativ complet ne Ur 017 09 e ed Ql Scn 14:44 Negativ e SCT Barbitu [id number] Negativ complet rates 017 09 e ed Ur Ql 14:44 Negativ Scn e SCT Methado [id number] Negativ complet ne Ur 017 09 e ed Ql Scn 14:44 Negativ e SCT Tricycl 9378417 Negativ complet ics Ur 017 09 e ed Ql Scn 14:44 Negativ e SCT Benzodi 8570535 Negativ complet az Ur 017 09 e ed Ql Scn 14:44 Negativ e SCT Amphet+ [id number] Negativ complet Methamp 017 09 e ed het Ur 14:44 Negativ Ql e SCT Opiates 1394287 Negativ complet Ur Ql 017 09 e ed 14:44 Negativ e SCT Ampheta 9860894 Negativ complet mines 017 09 e ed Ur Ql 14:44 Negativ e SCT Cocaine [id number] Negativ complet Ur Ql 017 09 e ed 14:44 Negativ e SCT PCP Ur 8159645 Negativ complet Ql Scn 017 09 e [...] Ql 19:47 , 1.0 Strip E.U./dL Nitrite 7978684 Negativ complet Ur Ql 016 09 e ed Strip 19:47 Negativ e SCT Leukocy 7819288 Negativ complet te 016 09 e ed esteras 19:47 Negativ e Ur Ql e SCT Strip.a uto Prot Ur 3878846 Negativ complet Ql 09 e ed Strip 19:47 Negativ e SCT Hgb Ur [id number] Negativ complet Ql 016 09 e ed Strip.a 19:47 Negativ uto e SCT Bilirub [id number] Negativ complet Ur Ql 016 09 e ed Strip 19:47 Negativ e SCT Ketones [id number] Negativ complet Ur Ql 016 06 e ed Strip 19:47 Trace SCT Glucose 4564049 Negativ complet Ur 016 09 e ed Strip-m 19:47 Negativ Cnc e SCT Sp Gr 1.015 1.005-1 complet Ur 016 .030 ed Strip 19:47 pH Ur 5.5 5.0-8.0 complet Strip.a 016 ed uto 19:47 Clarity [id number] Clear complet Ur 016 01 ed 19:47 Clear SCT Color [id number] Yellow, complet Ur 016 09 Straw ed [...] complet SerPl-c 016 ed Cnc 19:07 ALT 15 U/L 7-40 complet SerPl w [...] .80 ed cor # 18:28 3 Bld Bacteria Ur Cult (01-28-2016 17:44) Bacteri No complet a XXX 016 growth ed Aerobe 17:44 at 2 Cult days UA Microscopic Pnl # Ur Auto (01-28-2016 17:44) Ref lab Manual complet test 016 Light ed method 17:44 Microsc opy Squamou 13-20 None complet s 016 /HPF Seen, ed #/area 17:44 0-2 UrnS HPF UA Dipstick Pnl Ur (01-28-2016 17:44) Urobili 0.2 0.2 complet nogen 016 E.U./dL E.U./dL ed Ur Ql 17:44 , 1.0 Strip E.U./dL Nitrite [id number] Negativ complet Ur Ql 016 09 e ed Strip 17:44 Negativ e SCT Leukocy 6124786 Negativ complet te 016 09 e ed esteras 17:44 Negativ e Ur Ql e SCT Strip.a uto Prot Ur 30 Negativ complet Ql 016 mg/dL e ed Strip 17:44 (1+) Hgb Ur 5699313 Negativ complet Ql 016 01 e ed Strip.a 17:44 Large uto SCT Bilirub 5499858 Negativ complet Ur Ql 016 09 e ed Strip 17:44 Negativ e SCT Ketones 5112323 Negativ complet Ur Ql 016 09 e ed Strip 17:44 Negativ e SCT Glucose 2580787 Negativ complet Ur 016 09 e ed Strip-m 17:44 Negativ Cnc e SCT Sp Gr >= 1.005-1 complet Ur 016 1.030 .030 ed Strip 17:44 pH Ur <= 5.0 5.0-8.0 complet Strip.a 016 ed uto 17:44 Clarity [id number] Clear complet Ur 016 02 ed 17:44 Turbid SCT Color 4130943 Yellow, complet Ur 016 00 Red Straw ed 17:44 color SCT URINE HCG (05-09-2014 21:41) URINE 2 NEGATIV complet HCG 015 E ed 21:41 URINALYSIS COMPLETE (05-09-2014 21:41) HYALINE 05-09-2 2 /LPF 0-4 complet CAST 015 ed 21:41 BACTERI 05-09-2 NEGATIV NEGATIV complet A COUNT 015 E /HPF E ed 21:41 EPITHEL 05-09-2 3 /HPF 0-6 complet IAL 015 ed CELL 21:41 COUNT WBC 05-09-2 0 /HPF 0-5 complet COUNT 015 ed 21:41 RBC 05-09-2 1 /HPF 0-4 complet COUNT 015 ed 21:41 LEUKOCY 2 NEGATIV NEGATIV complet ROBERT 015 E E ed 21:41 NITRITE 05-09-2 NEGATIV NEGATIV complet 015 E E ed 21:41 UROBILI 05-09-2 0.2 0.2-1.0 complet NOGEN 015 E.U./DL ed 21:41 PROTEIN 05-09-2 NEGATIV NEGATIV complet 015 E MG/DL E ed 21:41 PH 05-09-2 5.5 5.0-9.0 complet 015 ed 21:41 BLOOD 05-09-2 NEGATIV NEGATIV complet 015 E E ed 21:41 SPECIFI 05-09-2 1.018 1.006-1 complet C 015 .035 ed GRAVITY 21:41 KETONE 06-2 NEGATIV NEGATIV complet 015 E MG/DL E ed 21:41 BILIRUB 05-09-2 NEGATIV NEGATIV complet IN 015 E E ed 21:41 GLUCOSE 06-2 NEGATIV NEGATIV complet 015 E MG/DL E ed 21:41 CLARITY 05-09-2 CLEAR complet 015 ed 21:41 COLOR 05-09-2 YELLOW complet 015 ed 21:41 GLOMELULAR PABLO. RATE,CALC. (05-09-2014 21:40) [...] ed 21:40 CBC\\T\\AUTO DIFF (05-09-2014 21:40) WBC 01-06-2 8.6 3.0-11. complet 015 K/UL 3 ed 21:40 BASO# 01-06-2 0.0 0.0-0.2 complet 015 K/ul ed 21:40 EOS# -06-2 0.1 0.0-0.9 complet 015 K/ul ed 21:40 MONOS# 01-06-2 0.4 0.2-0.6 complet 015 K/ul ed 21:40 LYMPH# -06-2 2.9 0.4-3.9 complet 015 K/ul ed 21:40 NEUT # -06-2 5.1 2.7-6.9 complet 015 K/ul ed 21:40 BASO% 06-2 0.2 % 0.0-2.0 complet 015 ed 21:40 EOS% 06-2 0.7 % 0.0-11. complet 015 0 ed 21:40 MONOS% 06-2 5.2 % 1.0-14. complet 015 0 ed 21:40 LYMPH% 05-09-2 34.3 % 10.0-42 complet 015 .0 ed 21:40 NEUTROP 05-09-2 59.6 % 43.0-83 complet HILS% 015 .0 ed 21:40 MPV 8.9 fl 6.4-10. complet 015 4 ed 21:40 PLATELE 274 122-454 complet T 015 K/UL ed 21:40 RDW 14.2 % 10.1-16 complet 015 .2 ed 21:40 MCHC 33.4 32.5-35 complet 015 g/dl .3 ed 21:40 MCH 2 31.8 pg 26.4-33 complet 015 .3 ed 21:40 MCV 95.2 fl 78.2-10 complet 015 1.8 ed 21:40 HCT 2 42.7 % 29.9-45 complet 015 .5 ed 21:40 HGB 14.3 10.0-16 complet 015 gm/dl .0 ed 21:40 RBC 2 4.490 3.450-5 complet 015 M/ul .400 ed [...] 50-59 93 ML/MIN Comment: 60-69 85 ML/MIN PHOSPHOROUS (03-28-2014 03:43) Comment: Physician is not [...] complet 014 MG/DL 1 ed 03:43 CREATIN 2 0.8 0.6-1.3 complet INE 014 MG/DL ed 03:43 CO2 27 21-32 complet 014 mmol/L ed 03:43 CHLORID 107 98-107 complet E 014 mmol/l ed 03:43 POTASSI 4.1 3.6-5.2 complet UM 014 mmol/l ed 03:43 SODIUM 138 133-144 complet 014 mmol/L ed 03:43 BUN 9 MG/DL 7-18 complet 014 ed 03:43 GLUCOSE 25-2 93 70-110 complet 014 MG/DL ed 03:43 [...] 0-5 HPF 0-5 complet 014 ed 18:00 URINALYSIS COMPLETE (03-26-2014 18:00) LEUKOCY [...] COLOR 11-23-2 YELLOW complet 014 ed 18:00 URINE HCG (03-26-2014 18:00) URINE 11-23-2 NEGATIV complet HCG 014 E ed 18:00 CBC\\T\\AUTO DIFF (03-26-2014 17:48) BASO# [...] 1.0-14. complet 014 0 ed 17:48 EOS% -23-2 0.7 % 0.0-11. complet 014 0 ed 17:48 WBC -23-2 10.1 3.0-11. complet 014 K/UL 3 ed 17:48 RBC -23-2 4.170 3.450-5 complet 014 M/ul .400 ed 17:48 HGB 23-2 13.0 10.0-16 complet 014 gm/dl .0 ed 17:48 HCT -23-2 39.0 % 29.9-45 complet 014 .5 ed 17:48 MCV -23-2 93.6 fl 78.2-10 complet 014 1.8 ed 17:48 MCH -23-2 31.2 pg 26.4-33 complet 014 .3 ed 17:48 MCHC 23-2 33.3 32.5-35 complet 014 g/dl .3 ed 17:48 RDW -23-2 14.3 % 10.1-16 complet 014 .2 ed 17:48 PLATELE 03-26-2 283 122-454 complet T 014 K/UL ed 17:48 NEUT # 23-2 6.7 2.7-6.9 complet 014 K/ul ed 17:48 LIPASE (03-26-2014 17:48) LIPASE 03-26-2 77 U/L 73-393 complet 014 ed 17:48 AMYLASE (03-26-2014 17:48) AMYLASE 03-26-2 58 U/L 25-115 complet 014 ed 17:48 GLOMELULAR PABLO. RATE,CALC. (03-26-2014 17:48) GLOMELU 23-2 125.8 60.0-13 complet LAR 014 ml/min 0.0 [...] , TOTAL 014 G/DL ed 17:48 ALKALIN 11-23-2 67 U/L 45-117 complet E 014 ed PHOSPHA 17:48 TASE CALCIUM 11-23-2 9.1 8.5-10. complet 014 MG/DL 1 ed 17:48 A/G 11-23-2 1.0 0.6-1.6 complet RATIO 014 ed 17:48 GLOBULI 11-23-2 4.0 2.4-4.8 complet N 014 G/DL ed 17:48 BILIRUB 11-23-2 0.30 0.00-1. complet IN, 014 MG/DL 00 ed TOTAL 17:48 ALT 11-23-2 20 U/L 12-78 complet 014 ed 17:48 AST 11-23-2 27 U/L 15-37 complet 014 ed 17:48 Comment: Specimen slightly hemolyzed. Results may be falsely elevated. CREATIN 11-23-2 0.8 0.6-1.3 complet INE 014 MG/DL ed 17:48 CO2 11-23-2 26 21-32 complet 014 mmol/L ed 17:48 CHLORID 11-23-2 104 98-107 complet E 014 mmol/l ed 17:48 POTASSI 11-23-2 4.3 3.6-5.2 complet UM 014 mmol/l ed 17:48 Comment: Specimen slightly hemolyzed. Results may be falsely elevated. SODIUM 11-23-2 136 133-144 complet 014 mmol/L ed 17:48 ALBUMIN 11-23-2 3.9 3.4-5.0 complet 014 G/DL ed 17:48 GLUCOSE 11-23-2 80 70-110 complet 014 MG/DL ed 17:48 BASIC METABOLIC PANEL (CHEM 7) (03-24-2014 08:35) CALCIUM 11-21-2 8.0 8.5-10. complet 014 MG/DL 1 ed 08:35 CO2 21-2 26 21-32 complet 014 mmol/L ed 08:35 BUN 03-24-2 10 7-18 complet 014 MG/DL ed 08:35 GLUCOSE 03-24-2 99 70-110 complet 014 MG/DL ed 08:35 POTASSI 03-24-2 4.0 3.6-5.2 complet UM 014 mmol/l ed 08:35 SODIUM 03-24-2 139 133-144 complet 014 mmol/L ed 08:35 CREATIN 03-24-2 0.8 0.6-1.3 complet INE 014 MG/DL ed 08:35 CHLORID 03-24-2 108 98-107 complet E 014 mmol/l ed 08:35 CBC/NO DIFF+ PLATELET (03-24-2014 08:35) HGB 03-24-2 12.1 10.0-16 complet 014 gm/dl .0 ed 08:35 RBC 03-24-2 3.870 3.450-5 complet 014 M/ul .400 ed 08:35 MPV 03-24-2 9.7 fl 6.4-10. complet 014 4 ed 08:35 PLATELE 03-24-2 218 122-454 complet T 014 K/UL ed 08:35 RDW 03-24-2 14.9 % 10.1-16 complet 014 .2 ed 08:35 MCHC 03-24-2 33.2 32.5-35 complet 014 g/dl .3 ed 08:35 MCH 03-24-2 31.4 pg 26.4-33 complet 014 .3 ed 08:35 MCV 03-24-2 94.5 fl 78.2-10 complet 014 1.8 ed 08:35 HCT 03-24-2 36.5 % 29.9-45 complet 014 .5 ed 08:35 WBC 03-24-2 9.6 3.0-11. complet 014 K/UL 3 ed 08:35 GLOMELULAR PABLO. RATE,CALC. (03-24-2014 08:35) GLOMELU 03-24-2 125.8 60.0-13 complet LAR 014 ml/min 0.0 ed PABLO. 08:35 RATE,CA LC. PHOSPHOROUS (03-24-2014 08:35) PHOSPHO 2.7 2.5-4.9 complet SADIQ 014 MG/DL ed 08:35 MAGNESIUM (03-24-2014 08:35) MAGNESI 03-24-2 1.9 1.7-2.4 complet UM 014 MG/DL ed 08:35 GLOMELULAR PABLO. RATE,CALC. (03-23-2014 10:50) GLOMELU 03-23- 125.8 60.0-13 complet LAR 014 ml/min 0.0 ed PABLO. 10:50 RATE,CA LC. PHOSPHOROUS (03-23-2014 10:50) PHOSPHO 03-23- 2.5 2.5-4.9 complet SADIQ 014 MG/DL ed 10:50 MAGNESIUM (03-23-2014 10:50) MAGNESI 03-23- 1.5 1.7-2.4 complet UM 014 MG/DL ed 10:50 BASIC METABOLIC PANEL (CHEM 7) (03-23-2014 10:50) CHLORID 110 98-107 complet E 014 mmol/l ed 10:50 GLUCOSE 03-23- 118 70-110 complet 014 MG/DL ed 10:50 POTASSI 03-23-2 3.9 3.6-5.2 complet UM 014 mmol/l ed 10:50 SODIUM 03-23-2 139 133-144 complet 014 mmol/L ed 10:50 BUN 03-23-2 9 MG/DL 7-18 complet 014 ed 10:50 CALCIUM 03-23-2 8.1 8.5-10. complet 014 MG/DL 1 ed 10:50 CREATIN 03-23-2 0.8 0.6-1.3 complet INE 014 MG/DL ed 10:50 CO2 03-23-2 26 21-32 complet 014 mmol/L ed 10:50 CBC/NO DIFF+ PLATELET (03-23-2014 10:50) RDW 03-23-2 15.3 % 10.1-16 complet 014 .2 ed 10:50 MCHC 03-23-2 33.0 32.5-35 complet 014 g/dl .3 ed 10:50 MCH 03-23-2 31.1 pg 26.4-33 complet 014 .3 ed 10:50 MCV 03-23-2 94.2 fl 78.2-10 complet 014 1.8 ed [...] 3.0-11. complet 014 K/UL 3 ed 10:50 URINALYSIS COMPLETE (03-23-2014 05:00) HYALINE 11-20-2 3 /LPF 0-4 complet CAST 014 ed 05:00 BACTERI -20-2 TRACE NEGATIV complet A COUNT 014 /HPF E ed 05:00 EPITHEL -20-2 19 /HPF 0-6 complet IAL 014 ed CELL 05:00 COUNT WBC 11-20-2 2 /HPF 0-5 complet COUNT 014 ed 05:00 RBC 11-20-2 1 /HPF 0-4 complet COUNT 014 ed 05:00 LEUKOCY -20-2 NEGATIV NEGATIV complet ROBERT 014 E E ed 05:00 NITRITE 11-20-2 NEGATIV NEGATIV complet 014 E E ed 05:00 UROBILI -20-2 0.2 0.2-1.0 complet NOGEN 014 E.U./DL ed 05:00 PROTEIN 11-20-2 NEGATIV NEGATIV complet 014 E MG/DL E ed 05:00 PH 11-20-2 6.0 5.0-9.0 complet 014 ed 05:00 BLOOD 11-20-2 NEGATIV NEGATIV complet 014 E E ed 05:00 SPECIFI 11-20-2 1.070 1.006-1 complet C 014 .035 ed GRAVITY 05:00 KETONE 11-20-2 NEGATIV NEGATIV complet 014 E MG/DL E ed 05:00 BILIRUB 11-20-2 NEGATIV NEGATIV complet IN 014 E E ed 05:00 GLUCOSE 11-20-2 NEGATIV NEGATIV complet 014 E MG/DL E ed 05:00 CLARITY 11-20-2 CLEAR complet 014 ed 05:00 COLOR 11-20-2 YELLOW complet 014 ed 05:00 URINE HCG (03-23-2014 05:00) URINE NEGATIV complet HCG 014 E ed 05:00 I-CHEMISTRY 8+ PANEL (03-22-2014 15:13) [...] 2.7-6.9 complet 014 K/ul ed 15:09 BASO% 03-22- 0.8 % 0.0-2.0 complet 014 ed 15:09 BASO# 03-22-2 0.1 0.0-0.2 complet 014 K/ul ed 15:09 EOS# 11-19-2 0.1 0.0-0.9 complet 014 K/ul ed 15:09 PLATELE 235 122-454 complet T 014 K/UL ed 15:09 RDW 03-22-2 14.8 % 10.1-16 complet 014 .2 ed 15:09 MCHC 33.0 32.5-35 complet 014 g/dl .3 ed 15:09 MCH 03-22- 31.1 pg 26.4-33 complet 014 .3 ed 15:09 MCV 03-22- 94.3 fl 78.2-10 complet 014 1.8 ed 15:09 HCT 03-22- 38.6 % 29.9-45 complet 014 .5 ed 15:09 HGB 12.8 10.0-16 complet 014 gm/dl .0 ed 15:09 RBC 03-22- 4.100 3.450-5 complet 014 M/ul .400 ed 15:09 EOS% 03-22-2 1.3 % 0.0-11. complet 014 0 ed 15:09 MONOS% 03-22-2 8.7 % 1.0-14. complet 014 0 ed 15:09 LYMPH% 03-22-2 33.7 % 10.0-42 complet 014 .0 ed 15:09 NEUTROP 03-22-2 55.5 % 43.0-83 complet HILS% 014 .0 ed 15:09 MPV 03-22-2 8.8 fl 6.4-10. complet 014 4 ed 15:09 [facility] (UA W MICRO AND CULTURE) (05-13-2012 00:54) [...] 013 mg/dL E l ed 00:54 GLUCOSE 01-10-2 NEGATIV NEGATIV Normal complet , URINE 013 E mg/dL E ed (UA) 00:54 PROTEIN 05-13- NEGATIV NEGATIV Normal complet ,URINE 013 E mg/dL E ed 00:54 SPECIFI 1.020 1.003-1 Normal complet C 013 .035 ed GRAVITY 00:54 , URINE PH,URIN 6.0 4.5-8.0 Normal complet E 013 ed 00:54 BLOOD, NEGATIV NEGATIV Normal complet URINE 013 E E ed 00:54 APPEARA CLEAR Normal complet NCE,URI 013 ed NE 00:54 COLOR,U 05-13- YELLOW Normal complet RINE 013 ed 00:54 DAU10 (05-13-2012 00:54) CANNABI NEGATIV NEGATIV Normal complet NOID 013 E E ed SCREEN 00:54 METHADO NEGATIV NEGATIV Normal complet NE 013 E E ed SCREEN 00:54 COCAINE 05-13- NEGATIV NEGATIV Normal complet SCREEN 013 E E ed 00:54 BENZODI 05-13- NEGATIV NEGATIV Normal complet [...] for drug testing for legal use. METHAQU 05-13- NEGATIV NEGATIV Normal complet ALONE 013 E E ed SCR 00:54 OXYCODO 05-13- NEGATIV NEGATIV Normal complet NE SCR 013 E E ed 00:54 OPIATE 05-13-2 NEGATIV NEGATIV Normal complet SCREEN 013 E [...] Normal complet GAP 013 ed 00:25 CARBON 05-13-2 18 22-29 Below complet DIOXIDE 013 mmol/L low ed 00:25 normal CHLORID 05-13-2 102.0 98-107 Normal complet E 013 mmol/L ed 00:25 POTASSI 05-13-2 3.8 3.5-5.1 Normal complet UM 013 mmol/L ed 00:25 CBC WITH AUTO DIFF REFLEX (05-13-2012 00:25) MEAN 05-13-2 7.9 fL 6.0-10. Normal complet PLATELE 013 0 ed T 00:25 VOLUME PLATELE 271 x10 130-400 Normal complet T COUNT 013 3 ed 00:25 RDW 05-13-2 14.6 % 11.5-14 Above complet 013 .5 high ed 00:25 normal MCHC 05-13- 31.5 32-36 Below complet 013 g/dL low ed 00:25 normal MCH 05-13-2 29.8 pg 27-31 Normal complet 013 ed 00:25 MCV 05-13-2 94.7 fL 81-99 Normal complet 013 ed 00:25 HEMATOC 05-13-2 43.4 % 37.0-47 Normal complet RIT 013 .0 ed 00:25 HEMOGLO 05-13-2 13.7 12.0-16 Normal complet BIN 013 g/dL [...] 013 10 3 ed (AUTO) 00:25 BASOPHI 01-10-2 0.3 % 0-1.6 Normal complet LS % 013 ed (AUTO) 00:25 EOSINOP 05-13- 1.6 % 0.0-5.8 Normal complet HILS % 013 ed (AUTO) 00:25 MONOCYT 05-13- 5.4 % 4.4-11. Normal complet ES % 013 0 ed (AUTO) 00:25 LYMPHOC 28.9 % 17.6-40 Normal complet YTES % 013 .8 ed (AUTO) 00:25 BASOPHI 0.0 X 0.0-0.2 Normal complet LS # 013 10 3 ed (AUTO) 00:25 NEUTROP 61.3 % 43.1-74 Normal complet HILS % 013 .8 ed (AUTO) 00:25 Comment: If a manual differential is indicated, submit order within Comment: 48 hours" STREP SCREEN CONFIRMATION (03-22-2012 02:28) [facility] Specime [...] Beta Hemolyt ic Strep at 48 hrs INFLUENZA VIRUS A/B DIRECT IF TST (03-22-2012 [...]
--- OUTSIDE RECORDS SUMMARY | 2017-03-16 15:44 | External Medical Summary Rpt | CCD ---
Author Author , BOLIVAR Organization BOLIVAR Address Unknown Phone [email or web address] Purpose Continuity of Care Document - 03-22-2012 [...] 017 TURBID ed nce 16:40 L determi [facility] Urine test (02-15-2017 16:40) Urine = NEG [...] Ab Ser Ql (06-27-2016 15:47) HCV Ab [id number] Non-[place] complet Ser 017 07 ctive ed Donr [...] Bld Drugs Ur Scn (06-03-2016 14:44) Cannabi [id number] Negativ complet noids 017 09 e ed SerPl 14:44 Negativ Ql e SCT Bupreno [id number] Negativ complet rphine 017 09 e ed SerPl-m 14:44 Negativ Cnc e SCT Propoxy 3084845 Negativ complet ph Ur 017 09 e ed Ql 14:44 Negativ e SCT Oxycodo 2732130 Negativ complet ne Ur 017 09 e ed Ql Scn 14:44 Negativ e SCT Barbitu [id number] Negativ complet rates 017 09 e ed Ur Ql 14:44 Negativ Scn e SCT Methado 4114091 Negativ complet ne Ur 017 09 e ed Ql Scn 14:44 Negativ e SCT Tricycl 2542454 Negativ complet ics Ur 017 09 e ed Ql Scn 14:44 Negativ e SCT Benzodi 5203856 Negativ complet az Ur 017 09 e ed Ql Scn 14:44 Negativ e SCT Amphet+ 1834634 Negativ complet Methamp 017 09 e ed het Ur 14:44 Negativ Ql e SCT Opiates 0904169 Negativ complet Ur Ql 017 09 e ed 14:44 Negativ e SCT Ampheta 0379677 Negativ complet mines 017 09 e ed Ur Ql 14:44 Negativ e SCT Cocaine 6836298 Negativ complet Ur Ql 017 09 e ed 14:44 Negativ e SCT PCP Ur 3120974 Negativ complet Ql Scn 017 09 e [...] Ql 19:47 , 1.0 Strip E.U./dL Nitrite 5655348 Negativ complet Ur Ql 016 09 e ed Strip 19:47 Negativ e SCT Leukocy 4480222 Negativ complet te 016 09 e ed esteras 19:47 Negativ e Ur Ql e SCT Strip.a uto Prot Ur 9244473 Negativ complet Ql 09 e ed Strip 19:47 Negativ e SCT Hgb Ur 6442609 Negativ complet Ql 016 09 e ed Strip.a 19:47 Negativ uto e SCT Bilirub 6598500 Negativ complet Ur Ql 016 09 e ed Strip 19:47 Negativ e SCT Ketones 9800676 Negativ complet Ur Ql 016 06 e ed Strip 19:47 Trace SCT Glucose 7248028 Negativ complet Ur 016 09 e ed Strip-m 19:47 Negativ Cnc e SCT Sp Gr 1.015 1.005-1 complet Ur 016 .030 ed Strip 19:47 pH Ur 5.5 5.0-8.0 complet Strip.a 016 ed uto 19:47 Clarity 1985003 Clear complet Ur 016 01 ed 19:47 Clear SCT Color 7291628 Yellow, complet Ur 016 09 Straw ed [...] Ql 17:44 , 1.0 Strip E.U./dL Nitrite 2796845 Negativ complet Ur Ql 016 09 e ed Strip 17:44 Negativ e SCT Leukocy 9173381 Negativ complet te 016 09 e ed esteras 17:44 Negativ e Ur Ql e SCT Strip.a uto Prot Ur 30 Negativ complet Ql 016 mg/dL e ed Strip 17:44 (1+) Hgb Ur 8671644 Negativ complet Ql 016 01 e ed Strip.a 17:44 Large uto SCT Bilirub 8760514 Negativ complet Ur Ql 016 09 e ed Strip 17:44 Negativ e SCT Ketones 1348775 Negativ complet Ur Ql 016 09 e ed Strip 17:44 Negativ e SCT Glucose 4203190 Negativ complet Ur 016 09 e ed Strip-m 17:44 Negativ Cnc e SCT Sp Gr >= 1.005-1 complet Ur 016 1.030 .030 ed Strip 17:44 pH Ur <= 5.0 5.0-8.0 complet Strip.a 016 ed uto 17:44 Clarity 9190084 Clear complet Ur 016 02 ed 17:44 Turbid SCT Color 7135250 Yellow, complet Ur 016 00 Red Straw [...] MG/DL ed 15:13 I-CHLOR 104 98-109 complet NDAIA 014 mmol/L ed 15:13 I-TCO2 26 23-27 [...] fl 6.4-10. complet 014 4 ed 15:09 [facility] (UA W MICRO AND CULTURE) (05-13-2012 [...]
--- OUTSIDE RECORDS SUMMARY | 2017-03-16 15:45 | External Medical Summary Rpt | CCD ---
Author Author Conduent Organization Conduent Address Unknown Phone Unavailable Purpose Continuity of Care Document - through 2016
--- OUTSIDE RECORDS SUMMARY | 2017-03-16 15:46 | External Medical Summary Rpt ---
[...] No Feb 15 [Presen informa l informa 2016 ce] in tion in tion in 4:40 [...] aph will follow via compute r,mail, or store warehouse associate deliver y. Comment Comment . No No Physici Oct 2 : informa informa an 2017 tion in tion in questio 7:20 PM source source ns data data regardi ng Calculi Analysi s contact [facility] at: [phone]. Weight of . mg No 10/15/16 Oct [...] Adminis tration .Perfor med at: - [facility] [place] [address] [id number] 61Lab Directo r: Ezekiel Clayton MD, Phone: [phone] Composi Comment . No No SPECIME Brian [...] aph will follow via compute r,mail or store warehouse associate deliver y. Disclai Comment . No No This September 04 amira: informa informa test 2017 tion in tion in was 9:20 PM source source develop data data ed and its perform ance charact eristic sdeterm ined by [facility] . It has not been cleared orappro hortencia by the Food and Drug Adminis tration .Perfor med at: BN - [facility] [address] [id number] 61Lab Directo r: Ezekiel Clayton MD, Phone: [phone] Composi Comment . No No Percent September [...]
--- OUTSIDE RECORDS SUMMARY | 2017-03-16 15:46 | External Medical Summary Rpt | CCD ---
Author Author , BOLIVAR Organization BOLIVAR Address Unknown Phone [email or web address] Support Name Relationship Address Phone ALEX, Next Of Kin Unknown Unavailable JOSÉ Immunization Name Date Rout CVX Reac Dose Comm Prov Is Faci e tion ent ider Refu lity Give sed n Tdap 01-2 115 0.5 Hist KHAF No RITE , 4-20 mL oric NEREIDA AID0 Adso 17 al AYMA 3938 rbed Info N rmat ion - Sour ce Unsp ecif ied Infl 10-0 141 0.50 Hist WELC No H136 uenz 8-20 mL oric H a, 15 al KAVON Seas Info CE onal rmat ion - Sour ce Unsp ecif ied Meni 08-2 Intr 32 999 Hist H136 No H136 doug 9-20 amus oric occa 08 cula al l r Info MPSV rmat 4 ion - Sour ce Unsp ecif ied MMR 07-2 Intr 3 999 Hist H177 No H177 0-19 amus oric 98 cula al r Info rmat ion - Sour ce Unsp ecif ied
--- OUTSIDE RECORDS SUMMARY | 2017-03-16 15:46 | External Medical Summary Rpt | CCD ---
Author Author , BOLIVAR Organization BOLIVAR Address Unknown Phone [email or web address] Support Name Relationship Address Phone ALEX, Next [...]
--- OUTSIDE RECORDS SUMMARY | 2017-03-16 15:46 | External Medical Summary Rpt ---
[...] aph will follow via compute r,mail, or crystal slicer deliver y. Comment Comment . No No [...] Adminis tration .Perfor med at: - [facility] [place] [address] [id number] 61Lab Directo r: Ezekiel Clayton MD, Phone: [phone] Composi Comment . No No SPECIME Brian [...] aph will follow via compute r,mail or crystal slicer deliver y. Disclai Comment . No No This September 04 amira: informa informa test 2017 tion in tion in was 9:20 PM source source develop data data ed and its perform ance charact eristic sdeterm ined by [facility] . It has not been cleared orappro hortencia by the Food and Drug Adminis tration .Perfor med at: BN - [facility] [address] [id number] 61Lab Directo r: Ezekiel Clayton MD, Phone: [phone] Composi Comment . No No Percent September [...]
[2017-03-16 16:58] VITALS: BP 147/78
--- NOTE | 2017-03-16 17:33 | HISTORY AND PHYSICAL REPORT ---
Demographics: Admit date: 03/16/17 Chief complaint: Lateral flank pain PRIMARY DIAGNOSIS: KIDNEY STONES,HYDRONEPHROSIS Allergies: Coded Allergies: Penicillins (S-DIFF. 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 Recently moved here from [facility], her previous urologist in [facility] was Dr. Enriquez, but she also has been seen at [facility] on a regular basis for stone disease. She takes intermittent Flomax therapy as well as potassium citrate therapy for stone disease but has frequent attacks. 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 Pain started early this morning at 6 AM but she was able to walk, eat breakfast and took some extra fluids hoping to improve. She did not and the pain became unbearable in the early afternoon while at the store. She reported to the [facility] emergency department. Workup there included a CT scan which revealed evidence of bilateral hydronephrosis. Her pain was minimized but not eliminated with intravenous Dilaudid, and she was transferred here for inpatient admission given our availability of urology consultation tomorrow. She continues to have pain, somewhat better, her other major complaint is anxiety because "I don't like being in hospitals." Past medical history: Family HX Diabetes No CAD No Hypertension No Hyperlipidemia No Cancer No TB No Immunization HX DT/Tetanus Unknown Flu 2015-FSN Pneumonia Refuses General CAD? No Angina: No IL: No Hypertension? No Hyperlipidemia? No CHF? No DVT? No PE? No COPD? No Asthma? No Anemia? No GERD? No Gastric ulcers? No GI Bleed? No Hernia? No Thyroid Problems? No Hypothyroidism? No CVA? No Seizures? No Diabetes? No Renal Insuffiency? No UTI? Yes Stones? Yes BPH? No GB Disease: No Nephritic Syndrome? No Asplenia? No Hepatitis? No Sickle Cell Disease? No Arthritis? No Migraines? No Cataracts? No Glaucoma? No MRSA? No HIV? No TB? No Anxiety? Yes Depression? Yes Cancer? No More? 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 Patient does not recall any prior cystoscopies or ureteroscopy Past Surgical HX Previous Surgery?Y LITHOTRIPSY X2 LEFT PARTIAL KNEE T&A Current home meds: Active Scripts Naproxen (Naprosyn 500MG Tab) 500 MG PO BID #14 TAB Prov: 02/15/17 Reported Medications SERTRALINE HYDROCHLORIDE (Zoloft 100MG) 200 MG PO DAILY BUPROPION HCL SR (Wellbutrin SR 100MG) 150 MG PO DAILY Clonazepam (Clonazepam 1MG) 1 MG PO DAILY NORETHINDRONE AC-ETH ESTRADIOL (Loestrin 21 1-20 Tablet) 1 TAB PO DAILY Social Hx: Smoking HX Packs/day N/A Alcohol Alcohol: No Hx of Drug Use Drug Use? 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 Review of systems: Constitutional malaise, weakness. No: diaphoresis, fever. Respiratory No: no symptoms reported. Cardiovascular No no symptoms reported, No see HPI, No chest pain, No edema Gastrointestinal/Abdominal abdominal pain, No blood streaked bowels, No constipated, No diarrhea, No difficulty swallowing, nausea, poor appetite, poor fluid intake, No rectal bleeding, No vomiting Genitourinary see HPI. Musculoskeletal back pain. Neurological No: see HPI. Exam: Lab data for last 24 hours: Microbiology 03/16 UNK BLOOD: Anaerobic Blood Culture - ORD 03/16 UNK BLOOD: Aerobic Blood Culture - ORD 03/16 UNK BLOOD: Anaerobic Blood Culture - ORD 03/16 UNK BLOOD: Aerobic Blood Culture - ORD Admission vital signs: 1ST Vital Signs Result Date Time Pulse Ox 96 03/16 1658 B/P 147/78 03/16 1658 O2 Delivery ROOM AIR 03/16 1658 Temp 98.9 03/16 1658 Pulse 104 03/16 1658 Resp 20 03/16 1658 Additional information: Patient is alert, oriented 3. Appears in moderate distress from pain. Has episodes of tearful crying spells because of pain. She is tachycardic but not out of proportion to her distress. Pulse rate regular. Distal perfusion in hands and feet is normal. Neurologic exam including cranial nerves in her ability to move her extremities unremarkable. Sensorium is normal. Lungs are clear but deep breathing causes right-sided flank pain. She surprisingly, does not have marked CVA tenderness, her abdomen is slightly tender in the RIGHT lower quadrant but no rebound or guarding is soft with bowel sounds. Plan: Problem List 1. Kidney stone 2. Renal colic on right side Plan: CT scan and documentation from outside hospital reviewed. Given hydronephrosis and pain we will admit, IV fluids. Intravenous Toradol, cautious Dilaudid administration. Urology consultation tomorrow. Cover with levofloxacin for infectious possibilities given her hydronephrosis. Patient has long history of anxiety. This seems to be worsening her pain complaints. Cautious intravenous Ativan for short-term relief. at 4427
[2017-03-16] MEDS ORDERED: LEXAPRO 10 MG T10 MG PO (18:01)
[2017-03-16 18:37] VITALS: BP 147/78
[2017-03-16 18:47] LABS: HEMOGLOBIN 11.3 g/dL (12.2-16.2); LYMPH # 2.5 K/mm3 (0.7-4.5)
[2017-03-16 19:10] VITALS: BP 143/93
[2017-03-17] VITALS (14 sets, daily range): BP systolic 80–164; BP diastolic 45–92
[2017-03-17 06:11] LABS: URINE BILIRUBIN - DIPSTICK NEGATIVE (NEG); URINE BLOOD NEGATIVE (NEG)
--- NOTE | 2017-03-17 07:28 | PHARMACY CLINIC NOTE ---
Patient Demographics Patient Demographics Admission date: 03/16/17 Date: 03/17/17 Time: 726 Allergies Coded Allergies: Penicillins (S-DIFF. BREATHING 11/05/16) lamotrigine (From LAMICTAL) (11/05/16) morphine (11/05/16) HEIGHT- FT: 5 IN: 4.00 K.514 VTE General Information Labs: Laboratory Tests 03/16 1830 Hematology Hgb (12.2 - 16.2 g/dL) 11.3 L Hct (37.0 - 47.0 %) 35.9 L Plt Count (142 - 424 K/mm3) 248 Disclaimer The following section includes nursing documentation that has been pulled in for pharmacy review. Patient's VTE score: 0 Patient's VTE Risk: VERY LOW RISK Clinical trial participant? No VTE prophylaxis NQF [id number] VTE prophylaxis ordered? Yes Type of prophylaxis/treatment: GALINDO at 0727
--- NOTE | 2017-03-17 08:06 | ACUTE CARE PROGRESS NOTE (QUA) ---
Progress Notes Subjective Date 03/17/17 Time 0730 Note Patient reports severe pain in abdomen that rotates to right flank. She has had multiple doses of Dilaudid, Ativan and promethazine through the night. Nursing staff have had issues with the patient regarding her medications and behavior throughout the night. (See Nursing Note.) Alert and oriented x3. Patient is crying and trashing about in bed. Rate and rhytlhm regular. Mildly tachycardiac. Lung sounds clear and equal. Abdomen soft, tenderness RLQ and suprapubic region. Patient/family reports: pain Nursing reports: behavior, pain Objective Findings Last VS-Temp:98.1 B/P:142/92 Pulse:116 Resp:16 SaO2:94 ROOM AIR Last weight lbs:177 oz:8 K.514 Method:Bed Scales Reviewed: medications, vital signs, lab results, radiology report Assessment/Plan Problem List 1. Kidney stone 2. Renal colic on right side Patient condition Stable Plan: continue current care This inpt stay is expected to cross 2 MNs from start of care No Comments: Will repeat CT abdomen/pelvis this morning with contrast to evaluate for additional pathology. I am unsure if CT at [facility] reveals acute or chronic findings as her urinalysis was unremarkable. Urology consult today. at 0805
--- NOTE | 2017-03-17 08:06 | ACUTE CARE PROGRESS NOTE (QUA) ---
Progress Notes Subjective Date 03/17/17 Time 0730 Note Patient reports severe pain in abdomen that rotates to right flank. She has had multiple doses of Dilaudid, Ativan and promethazine through the night. Nursing staff have had issues with the patient regarding her medications and behavior throughout the night. (See Nursing Note.) Alert and oriented x3. Patient is crying and trashing about in bed. Rate and rhytlhm regular. Mildly tachycardiac. Lung sounds clear and equal. Abdomen soft, tenderness RLQ and suprapubic region. Patient/family reports: pain Nursing reports: behavior, pain Objective Findings Last VS-Temp:98.1 B/P:142/92 Pulse:116 Resp:16 SaO2:94 ROOM AIR Last weight lbs:177 oz:8 K.514 Method:Bed Scales Reviewed: medications, vital signs, lab results, radiology report Assessment/Plan Problem List 1. Kidney stone 2. Renal colic on right side Patient condition Stable Plan: continue current care This inpt stay is expected to cross 2 MNs from start of care No Comments: Will repeat CT abdomen/pelvis this morning with contrast to evaluate for additional pathology. I am unsure if CT at [facility] reveals acute or chronic findings as her urinalysis was unremarkable. Urology consult today. at 0805
--- NOTE | 2017-03-17 12:50 | CONSULT NOTE-UROLOGY ---
Urology Initial Visit Date of Visit: 03/17/17 HPI/Chief Complaint: Referring provider: 26/F Presenting problem: Length of time pt has had problem: Person attending patient for this visit: Patient is seen for hospital consultation. She was admitted yesterday from [facility] emergency room. She was noted to have moderate bilateral hydronephrosis RIGHT greater than LEFT. She presented there complaining of severe RIGHT flank pain nausea and emesis. Her pain radiated to her RIGHT groin. She reports an extensive history of stone disease. She has had intervention in [facility] with lithotripsy. She apparently was unremarkable today prior to the onset of her symptoms. She developed severe RIGHT flank pain. No ureteral stone was noted. She continues to have severe flank pain radiating to her RIGHT lower quadrant. She also has significant persistent nausea and emesis. I reviewed her CT scan. Her mother is at bedside. 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 Problem List: 1. Renal colic on right side Past Medical History Arthritis? N Diabetes? N Hyperlipedemia? N Hypertension? N Heart Problems? AK? N SOA? Asthma? N Lung Disease? COPD? N TB? N Anemia? N Bleeding Disorder? Cancer? N Radiation Tx? Hoarsness? Thyroid Problems? N Ulcers? Kidney Disease? Liver Disease? Glaucoma? Seizures? N CVA? N Immune Disease? HIV? N Trouble w/anesthesia? Abn PSA? Prostate Biopsy? Sexual Dysfunction? Abn Periods? Female Hormone Problems? Uterus/Ovary Problems? ? : 3 Para: Control? Type of BC: Surgical & Social History: Previous Surgery?Y LITHOTRIPSY X2 LEFT PARTIAL KNEE T&A Tobacco Use: Type: Packs/day:N/A If No, have you ever used and quit how long ago? Alcohol Use: Marital Status: Occupation: Family History: Anemia? Arthritis? Asthma? TB?N Cancer?N Bleeding Troubles? Hyperlipidemia?N Diabetes?N COPD? Glaucoma? AK? Heart Problems? HIV? Hypertension?N Hoarsness? Immune Disease? Kidney Disease? Liver Disease? Lung Disease? Radiation Tx? Seizures? Shortness of Breath? Ulcers? CVA? Thyroid Problems? Trouble w/Anes? Any men in family ever diagnosed with prostate cancer? Relationship of this person: Current Home Medications Reported Medications Escitalopram Oxalate (Lexapro 10MG) 10 MG PO DAILY SERTRALINE HYDROCHLORIDE (Zoloft 100MG) 200 MG PO DAILY Clonazepam (Clonazepam 1MG) 1 MG PO DAILY NORETHINDRONE AC-ETH ESTRADIOL (Loestrin 21 1-20 Tablet) 1 TAB PO DAILY Allergies: Coded Allergies: Penicillins (S-DIFF. BREATHING 11/05/16) lamotrigine (From LAMICTAL) (11/05/16) morphine (11/05/16) Review of Systems: Constitutional: No: chills (severe nausea). Genitourinary (Female): Positive for: flank pain. No: frequency, hematuria, nocturia. Vital Signs/Wt/Labs Weight -LB:177 OZ:8 K.514 Method:Bed Scales Height -FT:5 IN:4 CM:162.56 BMI:30.4 Vital Signs Date Time Temp Pulse Resp B/P Pulse O2 O2 Flow FiO2 Ox Delivery Rate 03/17 1209 16 03/17 1100 16 03/17 0828 16 03/17 0827 16 03/17 0823 98.8 118 22 101/48 99 ROOM AIR 03/17 0821 16 03/17 0446 16 03/17 0445 16 03/17 0430 98.1 116 18 142/92 94 ROOM AIR 03/17 0311 16 03/17 0108 18 03/17 0100 18 03/16 2109 18 03/16 2106 18 03/16 1910 97.3 112 18 143/93 96 03/16 1837 104 03/16 1837 98.9 104 18 147/78 03/16 1837 96 ROOM AIR 03/16 1734 18 03/16 1730 18 03/16 1727 18 03/16 1658 98.9 104 20 147/78 96 ROOM AIR Color: Appearance Glucose: Ketone: Bilirubin: Sp.[place]: pH: Protein: Urobilinogen: Blood: Nitrite: Leukocytes: Urine collection method? Residual (ml): Laboratory Tests 03/17/17 0326: Urine Color YELLOW, Urine Appearance CLEAR, Urine pH 6.0, Ur Specific [place] >= 1.030, Urine Protein NEGATIVE, Urine Ketones NEGATIVE, Urine Blood NEGATIVE, Urine Nitrate NEGATIVE, Urine Bilirubin NEGATIVE, Urine Urobilinogen 0.2, Ur Leukocyte Esterase NEGATIVE, Urine WBC 3-5, Urine Bacteria 1+, Urine Mucus 1+, Urine Glucose NEGATIVE 03/16/171829: Sodium 140, Potassium 4.0, Chloride 106, Carbon Dioxide 25, BUN 11, Creatinine 0.9, Estimated Creat Clear 119, Estimated GFR (MDRD) 75, Glucose 93, Calcium 8.6 , Beta HCG, Quant 0, WBC 8.2, RBC 4.12 L, Hgb 11.3 L, Hct 35.9 L, MCV 87.1, RDW 17.6 H, Plt Count 248, MPV 7.8, Gran % 61.4, Gran # 5.0, Lymphocytes % 31.0 , Monocytes % 4.6, Eosinophils % 2.5, Basophils % 0.6, Lymphocytes # 2.5, Monocytes # 0.4, Eosinophils # 0.2, Basophils # 0.1, PUBS MCHC 31.3 L, MCH 27.3 Microbiology Date/Time Procedure - Status Source Growth 03/17 0326 Urine Culture - RECD URINE CC 03/16 1830 Anaerobic Blood Culture - RECD BLOOD 03/16 1830 Aerobic Blood Culture - RECD BLOOD 03/16 1830 Anaerobic Blood Culture - RECD BLOOD 03/16 1830 Aerobic Blood Culture - RECD BLOOD Exam: General appearance: crying (she is very emotional and appe) Objective: Bilateral flank pain RIGHT greater than last palpation. Her CT scan was reviewed from [facility] yesterday. I see no significant stones in either kidney. He does have moderate hydronephrosis RIGHT greater than LEFT. The ureter is dilated down to the pelvic brim bilaterally. No abdominal or pelvic masses. She has several calcifications within the true pelvis which looks consistent with phleboliths. Impression/Plan: Renal colic symptoms. Due to persistence and severity of her symptoms I suggest we arrange for cystoscopy with bilateral retrograde Pellegrin's. His stones are encountered we will try to resolve that. We discussed likely ureteral stent placement if her ureters are instrumented. We are currently awaiting a repeat CT scan without and with contrast including oral contrast. We will proceed later this afternoon. We discussed the above procedure in detail with patient as well as her mother. at 5859
--- NOTE | 2017-03-17 12:50 | CONSULT NOTE-UROLOGY ---
Urology Initial Visit Date of Visit: 03/17/17 HPI/Chief Complaint: Referring provider: 26/F Presenting problem: Length of time pt has had problem: Person attending patient for this visit: Patient is seen for hospital consultation. She was admitted yesterday from [facility] emergency room. She was noted to have moderate bilateral hydronephrosis RIGHT greater than LEFT. She presented there complaining of severe RIGHT flank pain nausea and emesis. Her pain radiated to her RIGHT groin. She reports an extensive history of stone disease. She has had intervention in [facility] with lithotripsy. She apparently was unremarkable today prior to the onset of her symptoms. She developed severe RIGHT flank pain. No ureteral stone was noted. She continues to have severe flank pain radiating to her RIGHT lower quadrant. She also has significant persistent nausea and emesis. I reviewed her CT scan. Her mother is at bedside. 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 Problem List: 1. Renal colic on right side Past Medical History Arthritis? N Diabetes? N Hyperlipedemia? N Hypertension? N Heart Problems? IN? N SOA? Asthma? N Lung Disease? COPD? N TB? N Anemia? N Bleeding Disorder? Cancer? N Radiation Tx? Hoarsness? Thyroid Problems? N Ulcers? Kidney Disease? Liver Disease? Glaucoma? Seizures? N CVA? N Immune Disease? HIV? N Trouble w/anesthesia? Abn PSA? Prostate Biopsy? Sexual Dysfunction? Abn Periods? Female Hormone Problems? Uterus/Ovary Problems? ? : 3 Para: Control? Type of BC: Surgical & Social History: Previous Surgery?Y LITHOTRIPSY X2 LEFT PARTIAL KNEE T&A Tobacco Use: Type: Packs/day:N/A If No, have you ever used and quit how long ago? Alcohol Use: Marital Status: Occupation: Family History: Anemia? Arthritis? Asthma? TB?N Cancer?N Bleeding Troubles? Hyperlipidemia?N Diabetes?N COPD? Glaucoma? IN? Heart Problems? HIV? Hypertension?N Hoarsness? Immune Disease? Kidney Disease? Liver Disease? Lung Disease? Radiation Tx? Seizures? Shortness of Breath? Ulcers? CVA? Thyroid Problems? Trouble w/Anes? Any men in family ever diagnosed with prostate cancer? Relationship of this person: Current Home Medications Reported Medications Escitalopram Oxalate (Lexapro 10MG) 10 MG PO DAILY SERTRALINE HYDROCHLORIDE (Zoloft 100MG) 200 MG PO DAILY Clonazepam (Clonazepam 1MG) 1 MG PO DAILY NORETHINDRONE AC-ETH ESTRADIOL (Loestrin 21 1-20 Tablet) 1 TAB PO DAILY Allergies: Coded Allergies: Penicillins (S-DIFF. BREATHING 11/05/16) lamotrigine (From LAMICTAL) (11/05/16) morphine (11/05/16) Review of Systems: Constitutional: No: chills (severe nausea). Genitourinary (Female): Positive for: flank pain. No: frequency, hematuria, nocturia. Vital Signs/Wt/Labs Weight -LB:177 OZ:8 K.514 Method:Bed Scales Height -FT:5 IN:4 CM:162.56 BMI:30.4 Vital Signs Date Time Temp Pulse Resp B/P Pulse O2 O2 Flow FiO2 Ox Delivery Rate 03/17 1209 16 03/17 1100 16 03/17 0828 16 03/17 0827 16 03/17 0823 98.8 118 22 101/48 99 ROOM AIR 03/17 0821 16 03/17 0446 16 03/17 0445 16 03/17 0430 98.1 116 18 142/92 94 ROOM AIR 03/17 0311 16 03/17 0108 18 03/17 0100 18 03/16 2109 18 03/16 2106 18 03/16 1910 97.3 112 18 143/93 96 03/16 1837 104 03/16 1837 98.9 104 18 147/78 03/16 1837 96 ROOM AIR 03/16 1734 18 03/16 1730 18 03/16 1727 18 03/16 1658 98.9 104 20 147/78 96 ROOM AIR Color: Appearance Glucose: Ketone: Bilirubin: Sp.[place]: pH: Protein: Urobilinogen: Blood: Nitrite: Leukocytes: Urine collection method? Residual (ml): Laboratory Tests 03/17/17 0326: Urine Color YELLOW, Urine Appearance CLEAR, Urine pH 6.0, Ur Specific [place] >= 1.030, Urine Protein NEGATIVE, Urine Ketones NEGATIVE, Urine Blood NEGATIVE, Urine Nitrate NEGATIVE, Urine Bilirubin NEGATIVE, Urine Urobilinogen 0.2, Ur Leukocyte Esterase NEGATIVE, Urine WBC 3-5, Urine Bacteria 1+, Urine Mucus 1+, Urine Glucose NEGATIVE 03/16/171829: Sodium 140, Potassium 4.0, Chloride 106, Carbon Dioxide 25, BUN 11, Creatinine 0.9, Estimated Creat Clear 119, Estimated GFR (MDRD) 75, Glucose 93, Calcium 8.6 , Beta HCG, Quant 0, WBC 8.2, RBC 4.12 L, Hgb 11.3 L, Hct 35.9 L, MCV 87.1, RDW 17.6 H, Plt Count 248, MPV 7.8, Gran % 61.4, Gran # 5.0, Lymphocytes % 31.0 , Monocytes % 4.6, Eosinophils % 2.5, Basophils % 0.6, Lymphocytes # 2.5, Monocytes # 0.4, Eosinophils # 0.2, Basophils # 0.1, PUBS MCHC 31.3 L, MCH 27.3 Microbiology Date/Time Procedure - Status Source Growth 03/17 0326 Urine Culture - RECD URINE CC 03/16 1830 Anaerobic Blood Culture - RECD BLOOD 03/16 1830 Aerobic Blood Culture - RECD BLOOD 03/16 1830 Anaerobic Blood Culture - RECD BLOOD 03/16 1830 Aerobic Blood Culture - RECD BLOOD Exam: General appearance: crying (she is very emotional and appe) Objective: Bilateral flank pain RIGHT greater than last palpation. Her CT scan was reviewed from [facility] yesterday. I see no significant stones in either kidney. He does have moderate hydronephrosis RIGHT greater than LEFT. The ureter is dilated down to the pelvic brim bilaterally. No abdominal or pelvic masses. She has several calcifications within the true pelvis which looks consistent with phleboliths. Impression/Plan: Renal colic symptoms. Due to persistence and severity of her symptoms I suggest we arrange for cystoscopy with bilateral retrograde Pellegrin's. His stones are encountered we will try to resolve that. We discussed likely ureteral stent placement if her ureters are instrumented. We are currently awaiting a repeat CT scan without and with contrast including oral contrast. We will proceed later this afternoon. We discussed the above procedure in detail with patient as well as her mother. at [id number]
--- NOTE | 2017-03-17 14:17 | RADIOLOGY REPORT PS360 ---
CT ABD PELVIS W/ CONTRAST CLINICAL INDICATION: Right-sided abdominal pain, flank pain ABDOMEN PAIN, HYDRONEPHROSIS ORDERING PHYSICIAN: Mulugeta Lambert MD PATIENT AGE: 26 years COMPARISON: 10-03-16 TECHNIQUE: Axial images obtained with sagittal and coronal reformats. PROCEDURE: Oral Contrast: Gastroview IV Contrast: 75 mL's of Isovue-370 . FINDINGS: There is consolidation with air bronchogram in the lingula consistent with pneumonia. Patchy infiltrate is present in the left lower lobe as well. The liver, spleen, adrenal glands, and pancreas are unremarkable. No radio opaque gallstones are evident. There is mild prominence of the renal pelves bilaterally. There is also minimal prominence of the proximal ureters however, no definite ureteral calculus is evident. The renal ectasia could be related to patient's hydration status. Urinary bladder is not distended. The appendix is not clearly delineated. There is no evidence of appendicitis or diverticulitis or intestinal obstruction or free air. There is a 2.6 cm left ovarian cyst and there is a small amount fluid in the cul-de-sac. No acute bony anomalies. IMPRESSION: 1. 2.6 cm left ovarian cyst with small amount fluid in the cul-de-sac. 2. Minimal ectasia of the renal collecting system on both sides but no obstructing ureteral calculus evident. 3. Pneumonia within the lingula and left lower lobe
--- NOTE | 2017-03-17 17:21 | Anesthesia Record ---
Anesthesia Record Part I Total IV fluids: 300 EBL (ml): 0 Urine Output: 0 B/P: 118/73 % SaO2: 96 Pulse: 103 Resps: 10 Temp: 97 Patient is: Drowsy, Nasal O2, Stable Stable to PACU at: 1716 at 1727
--- NOTE | 2017-03-17 17:22 | Anesthesia Record ---
Anesthesia Record Part II Discharge time: 1746 Destination: Second Floor PACU nurse assessment review? Yes Patient is: Stable Anesthesia complications? No at [id number]
--- NOTE | 2017-03-17 17:36 | Operative Note-Urology ---
Procedure/Operative Record Procedure DATE OF PROCEDURE: 03/17/17 PREOPERATIVE DIAGNOSIS: Renal colic POSTOPERATIVE DIAGNOSIS: Same PROCEDURE PERFORMED: Cystoscopy with bilateral retrograde pyelograms urethral dilation SURGEON: Rigo Jose ANESTHESIA: Gen. BRIEF HISTORY: Patient is 26 years of age with reported history of urolithiasis. [facility] flank pain nausea and emesis. She has CT scan which demonstrated prominent RIGHT renal pelvis and proximal ureter. No obstructing stones were known. Due to persistence of her symptoms she was admitted here for further evaluation. Earlier today she underwent a contrast CT scan. No other pathology was noted. She continues complaining of severe flank pain RIGHT greater than LEFT. She also has significant nausea and emesis. She is very dramatic and appears to be very uncomfortable. She reports previous history of shockwave lithotripsy as well as ureteroscopy in [facility]. Her noncontrast scan shows no renal calculi. Calcifications in her pelvis is likely are phleboliths. Considering the severity of her symptoms I suggest we proceed with cystoscopy with bilateral retrograde pyelograms to ensure we are not missing a ureteral stone. It was discussed with patient and mother and . They understand and wish to proceed. OPERATIVE NOTE: After satisfactory general anesthesia she was carefully placed in the dorsolithotomy position. The genital area was prepped and draped in standard fashion. External genitalia was unremarkable. The 22 Moroccan cystoscope sheath was introduced into the bladder. The bladder was inspected entirely. She had mild squamous metaplasia of the trigone. This did not involve the ureteral orifice E's. The ureteral orifice easily appeared normal bilateral. Fluoroscopy was performed. Bilateral retrograde pyelography was performed. A 5 Moroccan open- ended ureteral catheter was placed in each ureteral orifice. Course and contour of the ureters were unremarkable. The midportion of the RIGHT ureter was full down to the iliac vessels. With visualization normal peristalsis moves all contrast across this and emptied the ureter in a normal fashion. Both sides were unremarkable. The calyceal system was fine and delicate. Generally the renal pelvis on the RIGHT appeared to be extra renal but emptied promptly. The bladder was drained and cystoscope removed. The urethra did seem snug on the cystoscope and was therefore dilated easily to 28 Moroccan with the [place] sounds. Xylocaine jelly was instilled in the urethra. EBL (ml): 0 IMPRESSION: Renal colic symptoms without evidence of obstruction. The exact cause of her back pain is unknown at this time. She does appear to have some mild trigonitis which should not cause this level of discomfort. I suggest empirically placing her on Bactrim double strength twice a day for 2 weeks. She will follow up with me in 3 weeks. If she has further complaints of abdominal pain this should be further evaluated by general surgery or gynecology. PLAN: Follow-up 3 weeks at 1646
--- NOTE | 2017-03-17 17:36 | Operative Note-Urology ---
Procedure/Operative Record Procedure DATE OF PROCEDURE: 03/17/17 PREOPERATIVE DIAGNOSIS: Renal colic POSTOPERATIVE DIAGNOSIS: Same PROCEDURE PERFORMED: Cystoscopy with bilateral retrograde pyelograms urethral dilation SURGEON: Rigo Jose ANESTHESIA: Gen. BRIEF HISTORY: Patient is 26 years of age with reported history of urolithiasis. She presented to [facility] yesterday with severe RIGHT flank pain nausea and emesis. She has CT scan which demonstrated prominent RIGHT renal pelvis and proximal ureter. No obstructing stones were known. Due to persistence of her symptoms she was admitted here for further evaluation. Earlier today she underwent a contrast CT scan. No other pathology was noted. She continues complaining of severe flank pain RIGHT greater than LEFT. She also has significant nausea and emesis. She is very dramatic and appears to be very uncomfortable. She reports previous history of shockwave lithotripsy as well as ureteroscopy in [facility]. Her noncontrast scan shows no renal calculi. Calcifications in her pelvis is likely are phleboliths. Considering the severity of her symptoms I suggest we proceed with cystoscopy with bilateral retrograde pyelograms to ensure we are not missing a ureteral stone. It was discussed with patient and mother and . They understand and wish to proceed. OPERATIVE NOTE: After satisfactory general anesthesia she was carefully placed in the dorsolithotomy position. The genital area was prepped and draped in standard fashion. External genitalia was unremarkable. The 22 [place] Islander cystoscope sheath was introduced into the bladder. The bladder was inspected entirely. She had mild squamous metaplasia of the trigone. This did not involve the ureteral orifice E's. The ureteral orifice easily appeared normal bilateral. Fluoroscopy was performed. Bilateral retrograde pyelography was performed. A 5 [place] Islander open- ended ureteral catheter was placed in each ureteral orifice. Course and contour of the ureters were unremarkable. The midportion of the RIGHT ureter was full down to the iliac vessels. With visualization normal peristalsis moves all contrast across this and emptied the ureter in a normal fashion. Both sides were unremarkable. The calyceal system was fine and delicate. Generally the renal pelvis on the RIGHT appeared to be extra renal but emptied promptly. The bladder was drained and cystoscope removed. The urethra did seem snug on the cystoscope and was therefore dilated easily to 28 [place] Islander with the [place] sounds. Xylocaine jelly was instilled in the urethra. EBL (ml): 0 IMPRESSION: Renal colic symptoms without evidence of obstruction. The exact cause of her back pain is unknown at this time. She does appear to have some mild trigonitis which should not cause this level of discomfort. I suggest empirically placing her on Bactrim double strength twice a day for 2 weeks. She will follow up with me in 3 weeks. If she has further complaints of abdominal pain this should be further evaluated by general surgery or gynecology. PLAN: Follow-up 3 weeks at [id number]
[2017-03-18] VITALS (8 sets, daily range): BP systolic 90–138; BP diastolic 45–79
--- NOTE | 2017-03-18 06:36 | DISCHARGE SUMMARY STANDARD ---
See Addendum Demographics Admit date: 03/16/17 Discharge date: 03/18/17 History of present illness History of present illness 26-year-old white female with long history of calcium oxalate and uric acid stones. Recently moved here from [facility], her previous urologist in [facility] was Dr. Enriquez, but she also has been seen at [facility] on a regular basis for stone disease. She takes intermittent Flomax therapy as well as potassium citrate therapy for stone disease but has frequent attacks. 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 Pain started early this morning at 6 AM but she was able to walk, eat breakfast and took some extra fluids hoping to improve. She did not and the pain became unbearable in the early afternoon while at the store. She reported to the [facility] emergency department. Workup there included a CT scan which revealed evidence of bilateral hydronephrosis. Her pain was minimized but not eliminated with intravenous Dilaudid, and she was transferred here for inpatient admission given our availability of urology consultation tomorrow. She continues to have pain, somewhat better, her other major complaint is anxiety because "I don't like being in hospitals." Hospital Course Hospital Course: Patient was admitted, pain control was achieved with Dilaudid, intravenous Phenergan and Toradol. Urology consultation was obtained, CT scan was repeated showing evidence of hydronephrosis but no evidence of obstructing stone. Interestingly she had an ovarian cyst on the RIGHT side. Urology consult reviewed and appreciated. Taken to cystoscopy, bladder/urethral dilatation done with no complications. Recommendations noted. This morning the patient has continued to ask for intravenous pain medications exactly when ordered, but has exhibited no significant pain behaviors in between. Exam reveals that she is pleasant, talkative, lungs are clear, abdomen is soft. Plan will be to discharge home with Toradol by mouth for pain, Phenergan for nausea and 3 days worth of Tylenol 3 with codeine, and BuSpar for her anxiety issues. I will follow her up in one week, urology has recommended Bactrim for antibiotic coverage. I agree. She will see urology in 2 weeks. Discharge diagnoses Problem List 1. Kidney stone 2. Renal colic on right side Medications Medications: Discharge meds are as noted. Follow up Follow up in office in: 7 DAYS with: Mulugeta Lambert MD Comment: Also with Rebeca in 2 weeks. at 0636
[2017-03-18] MEDS ORDERED: TORADOL10 MG PO (06:37)
[2017-03-18] MEDS ORDERED: BACTRIM DS 8001 TA1 PO (06:37)
[2017-03-18] MEDS ORDERED: TYLENOL WITH CO1 TA1 PO (06:38)
--- NOTE | 2017-03-18 09:25 | RADIOLOGY REPORT PS360 ---
CYSTOURETHROGRAPHY(STENT/PERC HISTORY: URETEROSCOPY ORDERING PHYSICIAN: Mulugeta Lambert MD PATIENT AGE: 26 years Fluoroscopy time: 1 minute and 42 seconds COMPARISON: None FINDINGS: 5 images submitted with the C-arm show contrast injected into the bilateral renal collecting system. No filling defects demonstrated of the images submitted. Distal left ureter is not imaged in the mid right ureter is not imaged. Please correlate with fluoroscopic findings. IMPRESSION: 5 images submitted with the C-arm show contrast injected into the bilateral renal collecting system. No filling defects demonstrated of the images submitted. Distal left ureter is not imaged in the mid right ureter is not imaged. Please correlate with fluoroscopic findings
[2017-03-18 10:46] LABS: CORONAVIRUS 229E NOT DETECTED (NOT DETECTE); CORONAVIRUS HKU 1 NOT DETECTED (NOT DETECTE); CORONAVIRUS NL63 NOT DETECTED (NOT DETECTE); CORONAVIRUS OC43 NOT DETECTED (NOT DETECTE); RHINOVIRUS/ENTEROVIRUS NOT DETECTED (NOT DETECTE)
[2017-03-18 10:48] LABS: URINE BILIRUBIN - DIPSTICK NEGATIVE (NEG); URINE BLOOD 3+ (NEG)
--- NOTE | 2017-03-18 10:57 | RADIOLOGY REPORT PS360 ---
CHEST-PORTABLE HISTORY: Follow-up pneumonia TEMP ORDERING PHYSICIAN: Mulugeta Lambert MD PATIENT AGE: 26 years COMPARISON: Chest CT 03/17/2017 FINDINGS: Normal heart size. Increased density is present in the right perihilar region consistent with perihilar infiltrate. Previous CT scan demonstrated a pneumonia within the lingula. This area is somewhat underpenetrated. There is increased density in the left lower lung zone which may correspond to the CT abnormality.. Upper lobes are clear. IMPRESSION: Right perihilar and lingular pneumonia
[2017-03-18 12:50] LABS: LYMPH # 1.3 K/mm3 (0.7-4.5); LYMPH % 12.4 % (10-50.0)
[2017-03-18 14:12] LABS: HEMOGLOBIN 9.9 g/dL (12.2-16.2)
--- NOTE | 2017-03-18 17:28 | RADIOLOGY REPORT PS360 ---
CHEST PORTABLE-PICC PLACEMENT HISTORY: PICC LINE INSERTION Patient Age: 26 years: Female Ordering Physician: Mulugeta Lambert MD TECHNIQUE: AP portable chest COMPARISON :03/18/2017 FINDINGS ----- PICC line enters from left arm transversely left subclavian vein, passes through brachiocephalic vein then crosses midline with tip continuing to the right subclavian vein. .. PICC line nurse paris on floor was notified 5:04 PM Right perihilar infiltrate again noted most evident towards right infrahilar region.. This appears stable since this morning's CXR exam Question some small nodes along the right paratracheal region and question reactive adenopathy at the right yves. Subtle perihilar infiltrate on left extending towards left lung base .... The heart is normal size. No pneumothorax. No pleural effusion. No chest wall lesions... IMPRESSION: PICC line enters from left arm transversing the brachiocephalic vein with tip entering the right subclavian vein Right perihilar infiltrate again noted similar to this morning's study. Likely subtle left perihilar infiltrate extending towards left lung base again noted. Question some minimal adenopathy right paratracheal region and possibly generous right yves
[2017-03-18] MEDS ORDERED: HYDROMORPHONE2 MG PO (18:07)
--- NOTE | 2017-03-18 18:14 | CONSULT NOTE ---
Standard Demographics Patient Demo Date of Consultation: 03/18/17 Referring Provider: Mulugeta Gutierrez MD Reason for Consultation: RIGHT ovarian cyst PRIMARY DIAGNOSIS: KIDNEY STONES,HYDRONEPHROSIS Allergies: Coded Allergies: codeine (Severe, Q-[id number]/THROAT 03/18/17) Penicillins (S-DIFF. BREATHING 03/17/17) lamotrigine (From LAMICTAL) (03/17/17) morphine (03/17/17) History of Present Illness Chief Complaint: She complains of renal colic. History of Present Illness: She began having pain and has had previous episodes of kidney stones throughout her life. She had a CT scan that showed a 2.6 cm RIGHT ovarian cyst. Past Medical History Denies: congestive heart failure, COPD. Surgical History Previous Surgery?Y LITHOTRIPSY X2 LEFT PARTIAL KNEE T&A Allergies Coded Allergies: codeine (Severe, J-[id number]-[id number]/THROAT 03/18/17) Penicillins (S-DIFF. BREATHING 03/17/17) lamotrigine (From LAMICTAL) (03/17/17) morphine (03/17/17) Medications: Reported Medications Escitalopram Oxalate (Lexapro 10MG) 10 MG PO DAILY SERTRALINE HYDROCHLORIDE (Zoloft 100MG) 200 MG PO DAILY Clonazepam (Clonazepam 1MG) 1 MG PO DAILY NORETHINDRONE AC-ETH ESTRADIOL (Loestrin 21 1-20 Tablet) 1 TAB PO DAILY Family history Negative for: unknown. Smoking Hx Tobacco: No Alcohol Alcohol: No Hx of Drug Use Drug Use? No Patien't marital status is Patient's support system is excellent Review of Systems Constitutional No: chills. Skin No: bruising. Immune/allergy No: allergy. Eyes No: blurry vision. ENT No: ear ache. Respiratory Positive for: pneumonia. No: dyspnea on exertion. Cardiovascular No: chest pain. GI Positive for: nausea. (female) Positive for: flank pain, hematuria, pelvic pain. Musculoskeletal No: extremity pain. Heme No: bleeding. Endocrine No: cold intolerance. Neurological No: change in LOC. Psychiatric Positive for: anxious, depression. Physical Exam VS/I&O Vital Signs Date Time Temp Pulse Resp B/P Pulse O2 O2 Flow FiO2 Ox Delivery Rate 03/18 1738 20 11/15 1710 98.1 96 20 95/50 93 ROOM AIR 03/18 1648 18 03/18 1358 18 03/18 1223 98.2 110 18 126/79 94 ROOM AIR 03/18 1112 20 03/18 1110 20 03/18 0855 101.1 125 20 110/54 90 03/18 0817 101.1 125 20 110/54 90 ROOM AIR 03/18 0704 20 03/18 0417 20 03/18 0409 99.2 78 20 138/46 95 ROOM AIR 03/18 0240 16 03/18 0155 98.2 99 16 107/73 97 03/18 0055 98.4 88 14 90/45 97 03/17 2355 98.1 73 16 101/52 97 03/17 2353 16 03/17 2331 16 03/17 2255 98.1 89 16 107/63 98 03/17 2155 97.6 93 14 97/53 97 03/17 2125 97.8 101 18 97/60 98 03/17 2115 97.0 87 16 96/66 98 03/17 2055 98.1 96 16 108/45 93 03/17 2025 97.4 88 16 101/52 97 03/17 1955 98.4 94 16 98/72 97 03/17 1940 98.0 83 20 80/48 98 03/17 1925 97.8 79 18 91/46 98 03/17 1910 97.7 79 18 111/55 100 03/17 1900 16 03/17 1854 97.0 I&O 03/18 0700 Intake Total 3755 Output Total 400 Balance 3355 Intake, IV 3755 Intake, Oral 0 Intake, Tube 0 Irrigant Output, 0 Emesis Output, 0 Estimated Blood Loss Output, Other 0 Output, Urine 400 Patient 178 lb Weight Exam General appearance no acute distress, alert, oriented, well nourished Neck full ROM Respiratory clear to auscultation Cardiovascular normal heart sounds Abdomen no distention Abdomen quadrants abnormal bowel sounds Genitourinary (female) deferred Neurological no motor deficit Psychiatric normal affect Findings/Data Laboratory Tests 03/18/17 1215: Sodium 138, Potassium 4.3, Chloride 105, Carbon Dioxide 26, BUN 7, Creatinine 0.9, Estimated Creat Clear 119, Estimated GFR (MDRD) 75, Glucose 97, Calcium 8.4 L, Total Bilirubin 0.2, AST 12 L, ALT 14, Alkaline Phosphatase 61, Total Protein 5.9 L, Albumin 2.8 L, Globulin 3.1, Albumin/Globulin Ratio 0.9 L, WBC 10.7, RBC 3.54 L, Hgb 9.9 L, Hct 31.0 L, MCV 87.7, RDW 17.8 H, Plt Count 208 , MPV 8.1, Gran % 82.5 H, Gran # 8.8 H, Lymphocytes % 12.4, Monocytes % 3.4, Eosinophils % 1.5, Basophils % 0.2, Lymphocytes # 1.3, Monocytes # 0.4, Eosinophils # 0.2, Basophils # 0.0, PUBS MCHC 31.8, MCH 27.9 03/18/17 1043: Chlamy pneum (TEM-PCR) NOT DETECTED, Adenovirus (PCR) NOT DETECTED, B. pertussis DNA (PCR) NOT DETECTED, Coronavirus OC43 (PCR) NOT DETECTED, Coronavirus HKU1 ( PCR) NOT DETECTED, Coronavirus 229E (PCR) NOT DETECTED, Coronavirus NL63 (PCR) NOT DETECTED, Human Metapneumovir PCR NOT DETECTED, Influenza A (H1) PCR NOT DETECTED, Influ A (H1N1/09) PCR NOT DETECTED, Influenza A (H3) PCR NOT DETECTED, Influenza Type A (PCR) NOT DETECTED, Influenza Type B (PCR) NOT DETECTED, M. pneumoniae (PCR) NOT DETECTED, Parainfluenza 1 (PCR) NOT DETECTED, Parainfluenza 2 (PCR) NOT DETECTED, Parainfluenza 3 (PCR) NOT DETECTED, Parainfluenza 4 (PCR) NOT DETECTED, RSV (PCR) NOT DETECTED, Entero/Rhino (PCR) NOT DETECTED 03/18/17 0900: Urine Color YELLOW, Urine Appearance CLEAR, Urine pH 5.5, Ur Specific [place] 1.015, Urine Protein NEGATIVE, Urine Ketones NEGATIVE, Urine Blood 3+ H, Urine Nitrate NEGATIVE, Urine Bilirubin NEGATIVE, Urine Urobilinogen 0.2, Ur Leukocyte Esterase NEGATIVE, Urine RBC 20-50, Urine WBC NONE, Ur Squamous Epith Cells 10- 20, Urine Bacteria OCC, Urine Glucose NEGATIVE 03/17/17 0326: Urine Color YELLOW, Urine Appearance CLEAR, Urine pH 6.0, Ur Specific [place] >= 1.030, Urine Protein NEGATIVE, Urine Ketones NEGATIVE, Urine Blood NEGATIVE, Urine Nitrate NEGATIVE, Urine Bilirubin NEGATIVE, Urine Urobilinogen 0.2, Ur Leukocyte Esterase NEGATIVE, Urine WBC 3-5, Urine Bacteria 1+, Urine Mucus 1+, Urine Glucose NEGATIVE 03/16/171829: Sodium 140, Potassium 4.0, Chloride 106, Carbon Dioxide 25, BUN 11, Creatinine 0.9, Estimated Creat Clear 119, Estimated GFR (MDRD) 75, Glucose 93, Calcium 8.6 , Beta HCG, Quant 0, WBC 8.2, RBC 4.12 L, Hgb 11.3 L, Hct 35.9 L, MCV 87.1, RDW 17.6 H, Plt Count 248, MPV 7.8, Gran % 61.4, Gran # 5.0, Lymphocytes % 31.0 , Monocytes % 4.6, Eosinophils % 2.5, Basophils % 0.6, Lymphocytes # 2.5, Monocytes # 0.4, Eosinophils # 0.2, Basophils # 0.1, PUBS MCHC 31.3 L, MCH 27.3 Microbiology Date/Time Procedure - Status Source Growth 03/18 1215 Anaerobic Blood Culture - RECD BLOOD 03/18 1215 Aerobic Blood Culture - RECD BLOOD 03/18 1215 Anaerobic Blood Culture - RECD BLOOD 03/18 1215 Aerobic Blood Culture - RECD BLOOD 03/17 0326 Urine Culture - COMP URINE CC 03/16 1830 Anaerobic Blood Culture - RECD BLOOD 03/16 183 Aerobic Blood Culture - RECD BLOOD 03/16 1830 Anaerobic Blood Culture - RES BLOOD 03/16 183 Aerobic Blood Culture - RES BLOOD Results labs reviewed Plan Plan: She has a RIGHT ovarian cyst approximately 2.5 cm in size. We will make arrangements for her to have repeat ultrasound in my office in 6 weeks. She will return for IV antibiotics and she has pneumonia. I told her that I would give her hydromorphone in the IV since this seems to work for her. I don't really have any indication for my spastic spirits with her that she is drug-seeking. I have given her prescription for hydromorphone 2 mg, number 12 tablets as well as. We'll follow up with her in the office in 6 weeks' time. at 1813
--- NOTE | 2017-03-19 09:42 | DISCHARGE SUMMARY STANDARD ---
Demographics Admit date: 03/16/17 Discharge date: 03/18/17 History of present illness History of present illness 26-year-old white female with long history of calcium oxalate and uric acid stones. Recently moved here from [facility], her previous urologist in [facility] was Dr. Enriquez, but she also has been seen at [facility] on a regular basis for stone disease. She takes intermittent Flomax therapy as well as potassium citrate therapy for stone disease but has frequent attacks. 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 Pain started early this morning at 6 AM but she was able to walk, eat breakfast and took some extra fluids hoping to improve. She did not and the pain became unbearable in the early afternoon while at the store. She reported to the [facility] emergency department. Workup there included a CT scan which revealed evidence of bilateral hydronephrosis. Her pain was minimized but not eliminated with intravenous Dilaudid, and she was transferred here for inpatient admission given our availability of urology consultation tomorrow. She continues to have pain, somewhat better, her other major complaint is anxiety because "I don't like being in hospitals." Hospital Course Hospital Course: Patient was admitted as noted above and workup was initiated. Patient was treated with pain control with intravenous hydromorphone, Toradol and nausea was treated with Zofran. Patient requested/require these medications as soon as they were due throughout the night. She became very tearful and acted very aggressively toward the nursing staff, accusing them of a lack of empathy and poor motivation. The following morning CT scan was repeated showing no evidence of urinary tract pathology except for previously noted hydronephrosis. Urology took her for cystoscopy anyway, note reviewed and appreciated, and urethral dilatation was done as noted in this note and discharge planning was arranged with antibody coverage and pain control. The following morning discharge was arranged but after discharge was ordered patient had a temperature elevation above 102. I restarted patient on levofloxacin for community-acquired pneumonia in the right lower lobe present on admission, and at this point blood cultures returned showing positive Streptococcus and blood. I discussed this with the patient, her and her mother. We agreed on the plan of PICC line placement and intravenous antibiotics while awaiting antibiotic sensitivities and final culture results. The patient was agreeable with this plan while I was in the room but later in the afternoon the patient became increasingly belligerent, demand and multiple nursing staff changes, and demanded a conference with Nursing administration and our care management team. She demanded to be discharged. patient had multiple spells of crying, histrionic behavior, accusatory behavior and again demanded multiple doses of pain medication. Her pain demands seemed far out of proportion to vital sign monitoring and any kind of objective imaging that we have done here at the hospital. Given patient's insistence on discharge I had our risk management staff draft an AMA discharge papers thatthe patient signed in which she promised to return tomorrow for IV antibiotics. Her PICC line was placed successfully after multiple interventions through different nursing staff. Patient did have a small rash in the right forearm from a peripheral line during vancomycin administration so this medication will not be ordered on discharge. She will be on levofloxacin intravenously for the next 10 days while we await culture results. This patient unfortunately is seriously ill. 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 We have tried our very best to take care of her medical needs. we will follow up on culture results as an outpatient and tailor drug coverage for her blood stream infection as needed. She has a high likelihood of noncompliance. Given her drug seeking behavior I would recommend no further narcotic or benzodiazepine prescriptions in her care. She has a high risk of opioid addiction and tolerance and her Adrien reports are very suspicious for doctor shopping/veruse of opiate prescription medication Discharge diagnoses Problem List 1. Kidney stone 2. Renal colic on right side 3. Streptococcal sepsis, unspecified Medications Medications: Discharge meds are as noted. Follow up Follow up in office in: 1 DAY with: Mulugeta Lambert MD at 0970
--- NOTE | 2017-03-19 16:35 | RADIOLOGY REPORT PS360 ---
CHEST-PORTABLE pCXR#2 1718 hours HISTORY: PICC LINE CORRECTIONrepositioning Patient Age: 26 years: Female Ordering Physician: Mulugeta Lambert MD TECHNIQUE: AP portable upright chest COMPARISON :PA CXR from 10:14 AM & 1630 hours PM FINDINGS . The previous study at 4:30 PM showed PICC line entering from the left arm crossing midline and tip at the right subclavian vein. The PICC line is been repositioned and now in satisfactory position. The line enters from the left arm transverse and left subclavian, brachiocephalic vein with tip at the near atrial/caval junction. Again the perihilar infiltrate on right with possible underlying right hilar adenopathy observed. This Infiltrate extends extends infrahilar region as well as lateral to the right yves. And appears similar to earlier studies today. There is also subtle subtle patchy perihilar infiltrate on left-with minimal patchy infiltrate at the left midlung and left infrahilar region Heart upper normal in size no pleural effusion. IMPRESSION: --------- PICC line has been repositioned and now in satisfactory position with tip at SVC, at the caval atrial junction Bilateral pneumonic infiltrates. Perihilar infiltrate on right possibly with right hilar adenopathy. Warrants follow-up. Left lung with subtle perihilar infiltrate-with associated subtle patchy infiltrate left midlung & left infrahilar region
== END 2017-03-18 18:35 | disposition home or self-care (01) | DRG 694 ==
LOC: 2ND 15:34
PROVIDERS: Internal Medicine Adolescent Medicine; Urology
PROC: BT141ZZ Fluoroscopy of Kidneys, Ureters and Bladder using Low Osmolar Contrast (ICD-10-PCS; principal; 2017-03-17 15:00)
PROC: 0T7D8ZZ Dilation of Urethra, Via Natural or Artificial Opening Endoscopic (ICD-10-PCS; principal; 2017-03-17 15:00)
DX: N23 Unspecified renal colic (principal); N13.1 Hydronephrosis with ureteral stricture, not elsewhere classified
CPT/HCPCS: C1751; J1956; J2405; J3370; Q9967

== ENCOUNTER 2017-03-19 09:54 | Outpatient (CLI) | payer MEDICAID ==
[~2017-03-19 09:54] MED LIST changes: +BACTRIM DS 8001 TA1 PO; +HYDROMORPHONE2 MG PO; +LEXAPRO 10 MG T10 MG PO; +TORADOL10 MG PO; +TYLENOL WITH CO1 TA1 PO
[2017-03-19 10:19] VITALS: BP 139/84
[2017-03-19 14:53] VITALS: BP 137/86
== END 2017-03-19 11:25 | disposition home or self-care (01) ==
LOC: COP 09:54
DX: N23 Unspecified renal colic (principal); N20.0 Calculus of kidney; A40.9 Streptococcal sepsis, unspecified
CPT/HCPCS: J1956; J2405

== ENCOUNTER 2017-03-20 11:30 | Outpatient (CLI) | payer MEDICAID ==
[2017-03-20 11:50] VITALS: BP 123/83
[2017-03-20 12:15] VITALS: BP 120/78
[2017-03-20 12:30] VITALS: BP 120/79
[2017-03-20 13:00] VITALS: BP 123/78
== END 2017-03-20 13:00 | disposition home or self-care (01) ==
LOC: COP 11:30
DX: N23 Unspecified renal colic (principal); N20.0 Calculus of kidney; A40.9 Streptococcal sepsis, unspecified
CPT/HCPCS: J1956; J2405

== ENCOUNTER → 2017-03-21 | Outpatient (CLI) | payer MEDICAID ==
[~2017-03-21] MED LIST changes: +ETHINYL ESTRADI1 TA1 PO
[2017-03-21 12:30] VITALS: BP 131/78
[2017-03-21 13:00] VITALS: BP 120/81
== END ==
LOC: COP 11:00
DX: A40.9 Streptococcal sepsis, unspecified (principal)
CPT/HCPCS: J1956; J2405

== ENCOUNTER → 2017-03-22 | Outpatient (CLI) | payer MEDICAID ==
[~2017-03-22] VITALS: Ht 162.6 cm; Wt 68.5 kg
[2017-03-22 12:00] VITALS: BP 122/94
[2017-03-22 13:15] VITALS: BP 123/78
== END ==
LOC: COP 11:00
DX: A40.9 Streptococcal sepsis, unspecified (principal)
CPT/HCPCS: J1956; J2405

== ENCOUNTER 2017-03-23 12:18 | Outpatient (CLI) | payer MEDICAID ==
[~2017-03-23 12:18] MED LIST changes: -ETHINYL ESTRADI1 TA1 PO
[2017-03-23 13:00] VITALS: BP 119/56
[2017-03-23 13:05] LABS: LYMPH # 1.4 K/mm3 (0.7-4.5); LYMPH % 19.8 % (10-50.0)
[2017-03-23 13:11] LABS: HEMOGLOBIN 11.8 g/dL (12.2-16.2)
[2017-03-23 13:30] VITALS: BP 124/91
[2017-03-23 14:00] VITALS: BP 109/77
[2017-03-23 14:30] VITALS: BP 119/71
[2017-03-23 15:00] VITALS: BP 125/68
[2017-03-23 15:20] VITALS: BP 119/60
== END 2017-03-23 15:30 | disposition home or self-care (01) ==
LOC: COP 12:18
PROVIDERS: Internal Medicine Adolescent Medicine
DX: A40.9 Streptococcal sepsis, unspecified (principal)
CPT/HCPCS: J1956; J2020; J2405

== ENCOUNTER 2017-03-30 16:27 | Emergency (ER) | payer BC, MEDICAID ==
[~2017-03-30] VITALS: Ht 162.6 cm; Wt 77.1 kg
--- OUTSIDE RECORDS SUMMARY | 2017-03-30 16:42 | External Medical Summary Rpt | CCD ---
Author Author , [facility] Organization [facility] Address Unknown Phone [email or web address] Purpose Continuity of Care Document - 03-22-2012 [...] R10.9 UNSPECIFIED ABDOMINAL PAIN Z33.1 STATE, INCIDENTAL Z34.90 ENCNTR FOR SUPRVSN OF NORMAL , UNSP, UNSP TRIMESTER Allergies, Adverse Reactions, Alerts Adverse Reaction to Substance Substance Reaction Severity NKA Results Labs Lab Lab Date Result Refere Interp Status Commen Order Detail nces retati t Range on CBC w auto diff (03-23-2017 12:48) Automat 2 = 0.0 0-0.2 complet ed 017 K/MM3 ed blood 12:48 basophi l count (count/ vo Baso % = 0.5 % 0.1-2.0 complet 017 ed 12:48 Automat = 0.3 0.0-0.4 complet ed 017 K/mm3 ed blood 12:48 eosinop hil count Automat = 4.7 % 0.1-12. complet ed 017 0 ed blood 12:48 eosinop hils/10 0 leukocy t Blood = 5.0 1.8-7.8 complet granulo 017 K/mm3 ed cytes 12:48 automat ed count (numb Granulo = 71.5 37.0-80 complet cyte 017 % .0 ed percent 12:48 age Blood = 36.7 37.0-47 complet hematoc 017 % .0 ed rit 12:48 (volume fractio n) Blood = 11.8 12.2-16 complet hemoglo 017 g/dL .2 ed bin 12:48 measure ment (mass/v olum Absolut = 1.4 0.7-4.5 complet e 017 K/mm3 ed lymphoc 12:48 yte count Lymphoc = 19.8 10-50.0 complet yte 017 % ed count, 12:48 blood, automat ed Mean = 27.6 27-31.2 complet corpusc 017 pg ed ular 12:48 hemoglo bin (MCH) determ Automat = 32.2 31.8-35 complet ed 017 g/dl .4 ed erythro 12:48 cyte mean corpusc ular h Automat = 85.9 82.2-97 complet ed 017 fl .8 ed erythro 12:48 cyte mean corpusc ular v Absolut = 0.3 0.1-1.0 complet e 017 K/mm3 ed monocyt 12:48 e count Mathews % = 3.6 % 1.7-9.3 complet 017 ed 12:48 Automat = 8.0 7.4-10. complet ed 017 fl 4 ed blood 12:48 platele t mean volume get Blood = 222 142-424 complet platele 017 K/mm3 ed t count 12:48 Red 11-20-2 = 4.27 4.2-5.4 complet blood 017 M/mm3 ed cell 12:48 count Automat = 17.8 11.5-17 complet ed 017 % .5 ed erythro 12:48 cyte distrib ution width Blood 03-23-2 = 7.0 4.8-10. complet leukocy 017 K/MM3 8 ed robert 12:48 count (number /volume ) Comprehensive metabolic panel (03-18-2017 12:15) Comment: COMMENTS TO PASTE UP ARTIST APPRENTICE: TEMP Serum = 7 7-18 complet or 017 mg/dL ed plasma 12:15 urea nitroge n measure men Serum 2 = 0.9 1.1-1.8 complet or 017 ed plasma 12:15 albumin /globul in mass ra Serum = 2.8 3.4-5.0 complet or 017 gm/dL ed plasma 12:15 albumin measure ment (mas Serum = 61 46-116 complet or 017 U/L ed plasma 12:15 alkalin e phospha tase gte Serum = 0.2 0.2-1.0 complet or 017 mg/dL ed plasma 12:15 total bilirub in measure m Serum = 8.4 8.5-10. complet or 017 mg/dL 1 ed plasma 12:15 calcium measure ment (mas Serum = 105 98-107 complet or 017 mmoL/L ed plasma 12:15 chlorid e measure ment (mo Carbon = 26 21.0-32 complet dioxide 017 mmoL/L .0 ed 12:15 measure ment Serum 2 = 0.9 0.55-1. complet or 017 mg/dL 02 ed plasma 12:15 creatin ine measure ment ( Estimat = 119 50-200 complet ion of 017 ML/MIN ed creatin 12:15 ine renal clearan ce Estimat = 75 59- complet ed 017 ML/MIN ed glomeru 12:15 lar filtrat ion rate (GF Comment: REFERENCE RANGE: >60 ML/MIN/1.73 SQUARE METERS Comment: If this patient is -Mongolian, then multiply the Comment: result by 1.210. Serum 2 = 3.1 1.3-3.2 complet globuli 017 gm/dL ed n 12:15 measure ment (mass/v olume) Serum = 97 74-106 complet or 017 mg/dL ed plasma 12:15 glucose measure ment (mas Serum = 4.3 3.5-5.1 complet potassi 017 mmoL/L ed um 12:15 measure ment Serum = 138 136-145 complet sodium 017 mmoL/L ed measure 12:15 ment Serum = 12 15-37 complet or 017 U/L ed plasma 12:15 asparta te aminotr ansfera ALT = 14 12-78 complet (SGPT) 017 U/L ed ser/ramírez 12:15 s Protein = 5.9 6.4-8.2 complet total 017 gm/dL ed ser/ramírez 12:15 s CBC w auto diff (03-18-2017 12:15) Comment: COMMENTS TO PASTE UP ARTIST APPRENTICE: TEMP Automat = 0.0 0-0.2 complet ed 017 K/MM3 ed blood 12:15 basophi l count (count/ vo Baso % = 0.2 % 0.1-2.0 complet 017 ed 12:15 Automat = 0.2 0.0-0.4 complet ed 017 K/mm3 ed blood 12:15 eosinop hil count Automat = 1.5 % 0.1-12. complet ed 017 0 ed blood 12:15 eosinop hils/10 0 leukocy t Blood = 8.8 1.8-7.8 complet granulo 017 K/mm3 ed cytes 12:15 automat ed count (numb Granulo = 82.5 37.0-80 complet cyte 017 % .0 ed percent 12:15 age Blood = 31.0 37.0-47 complet hematoc 017 % .0 ed rit 12:15 (volume fractio n) Blood = 9.9 12.2-16 complet hemoglo 017 g/dL .2 ed bin 12:15 measure ment (mass/v olum Absolut 11-15-2 = 1.3 0.7-4.5 complet e 017 K/mm3 ed lymphoc 12:15 yte count Lymphoc = 12.4 10-50.0 complet yte 017 % ed count, 12:15 blood, automat ed Mean = 27.9 27-31.2 complet corpusc 017 pg ed ular 12:15 hemoglo bin (MCH) determ Automat = 31.8 31.8-35 complet ed 017 g/dl .4 ed erythro 12:15 cyte mean corpusc ular h Automat = 87.7 82.2-97 complet ed 017 fl .8 ed erythro 12:15 cyte mean corpusc ular v Absolut = 0.4 0.1-1.0 complet e 017 K/mm3 ed monocyt 12:15 e count Mathews % = 3.4 % 1.7-9.3 complet 017 ed 12:15 Automat = 8.1 7.4-10. complet ed 017 fl 4 ed blood 12:15 platele t mean volume get Blood = 208 142-424 complet platele 017 K/mm3 ed t count 12:15 Red = 3.54 4.2-5.4 complet blood 017 M/mm3 ed cell 12:15 count Automat = 17.8 11.5-17 complet ed 017 % .5 ed erythro 12:15 cyte distrib ution width Blood = 10.7 4.8-10. complet leukocy 017 K/MM3 8 ed robert 12:15 count (number /volume ) UPPER RESPIRATORY PANEL,PCR (03-18-2017 10:43) Comment: COMMENTS TO PASTE UP ARTIST APPRENTICE: TEMP Stool NOT NOT complet adenovi 017 DETECTE DETECTE ed tiffany DNA 10:43 D NOT DETECTE detecti D L on by PCR Bordete NOT NOT complet lla 017 DETECTE DETECTE ed pertuss 10:43 D NOT is DETECTE detecti D L on by PCR Chlamyd NOT NOT complet ophila 017 DETECTE DETECTE ed pneumon 10:43 D NOT iae DNA DETECTE D L detecti on b Human NOT NOT complet coronav 017 DETECTE DETECTE ed irus 10:43 D NOT HKU1 DETECTE RNA D L detecti on by SARS NOT NOT complet Coronav 017 DETECTE DETECTE ed irus 10:43 D NOT RNA DETECTE detecti D L on by probe Influen NOT NOT complet za A 017 DETECTE DETECTE ed virus 10:43 D NOT subtype DETECTE H3 D L detecti on b Influen NOT NOT complet za 017 DETECTE DETECTE ed virus A 10:43 D NOT H1 RNA DETECTE D L detecti on in is Influen NOT NOT complet za A 017 DETECTE DETECTE ed H1N1 10:43 D NOT 2009 DETECTE RT-PCR D L Influen NOT NOT complet za B 017 DETECTE DETECTE ed virus 10:43 D NOT RNA DETECTE detecti D L on by polym Influen NOT NOT complet za A 017 DETECTE DETECTE ed RNA PCR 10:43 D NOT DETECTE D L Human NOT NOT complet metapne 017 DETECTE DETECTE ed umoviru 10:43 D NOT s DETECTE (hMPV) D L antigen det Mycopla NOT NOT complet sma 017 DETECTE DETECTE ed pneumon 10:43 D NOT iae PCR DETECTE D L Parainf NOT NOT complet luenza 017 DETECTE DETECTE ed 1 virus 10:43 D NOT RNA DETECTE nucleic D L acid a Parainf NOT NOT complet luenza 017 DETECTE DETECTE ed virus 2 10:43 D NOT RNA DETECTE detecti D L on by p Parainf NOT NOT complet luenza 017 DETECTE DETECTE ed virus 3 10:43 D NOT RNA DETECTE detecti D L on by p Parainf NOT NOT complet luenza 017 DETECTE DETECTE ed virus 10:43 D NOT type 4 DETECTE RNA D L detecti on Rhinovi NOT NOT complet tiffany and 017 DETECTE DETECTE ed 10:43 D NOT Enterov DETECTE irus D L RNA detecti on Respira NOT NOT complet tory 017 DETECTE DETECTE ed syncyti 10:43 D NOT al DETECTE virus D L (RSV) detect Urinalysis with microscopy (03-18-2017 09:00) Comment: COMMENTS TO PASTE UP ARTIST APPRENTICE: TEMP Comment: Collected by nurse? Y Comment: Hold specimen in OE? N Bacteri OCC OCC O complet a 017 L ed detecti 09:00 on in urine sedimen t by Urine NEGATIV NEG complet total 017 E ed bilirub 09:00 NEGATIV in E L detecti on by test Urine 3+ 3+ L NEG complet blood 017 ed detecti 09:00 on Urine YELLOW YELLOW complet color 017 YELLOW ed 09:00 L Glucose = NEG complet ur 017 NEGATIV ed test 09:00 E strip Urine NEGATIV NEG complet ketones 017 E ed 09:00 NEGATIV detecti E L on by mg/dL automat ed robert Mucus NEGATIV NEG complet detecti 017 E ed on in 09:00 NEGATIV urine E L sedimen t by lig Urine NEGATIV NEG complet nitrite 017 E ed 09:00 NEGATIV detecti E L on by test strip Urine = 5.5 5.0-8.5 complet pH 017 ed 09:00 Urine = NEG complet protein 017 NEGATIV ed 09:00 E mg/dL measure ment by automat ed t Erythro 03-18- 20-50 0 complet cytes 017 20-50 L ed detecti 09:00 on in rbc/hpf urine sedimen t Urine = 1.015 1.005-1 complet specifi 017 .030 ed c 09:00 gravity measure ment [place] 03-18- 10-20 0-5 complet s 017 10-20 L ed epithel 09:00 #/hpf ial cells detecti on in u Urine 0.2 0.2 NEG complet urobili 017 L ed nogen 09:00 E.U./dL detecti on by test str Urine = NONE O complet leukocy 017 wbc/hpf ed robert 09:00 count (number /volume ) Urine CLEAR CLEAR complet appeara 017 CLEAR L ed nce 09:00 determi nation Urinalysis dipstick W Reflex Microscopic panel in Urine (03-18-2017 09:00) Bacteri 11-15-2 OCC O complet a 017 ed [Presen 09:00 ce] in Urine sedimen t by Light microsc opy Erythro 11-15-2 20-50 0 complet cytes 017 ed [Presen 09:00 ce] in Urine sedimen t by Light microsc opy Epithel 11-15-2 10-20 0#/hp complet ial 017 f - ed cells.s 09:00 5#/hp quamous f [Presen ce] in Urine sedimen t by Microsc opy high power field Urinalysis dipstick W Reflex Microscopic panel in Urine (03-18-2017 09:00) Appeara 11-15-2 CLEAR CLEAR complet nce of 017 ed Urine 09:00 Bilirub 11-15-2 NEGATIV NEG complet in 017 E ed [Presen 09:00 ce] in Urine by Test strip Erythro 11-15-2 3+ NEG Abnorma complet cytes 017 l ed [Presen 09:00 ce] in Urine Color 11-15-2 YELLOW YELLOW complet of 017 ed Urine 09:00 Ketones 11-15-2 NEGATIV NEG complet 017 E ed [Presen 09:00 ce] in Urine by Automat ed test strip Mucus 11-15-2 NEGATIV NEG complet [Presen 017 E ed ce] in 09:00 Urine sedimen t by Light microsc opy Nitrite -15-2 NEGATIV NEG complet 017 E ed [Presen 09:00 ce] in Urine by Test strip Urobili 11-15-2 0.2 NEG complet nogen 017 ed [Presen 09:00 ce] in Urine by Test strip Urinalysis with microscopy (03-17-2017 03:26) Comment: Collected by nurse? Y Comment: Hold specimen in OE? N Urine 11-14-2 CLEAR CLEAR complet appeara 017 CLEAR L ed nce 03:26 determi nation Bacteri 11-14-2 1+ 1+ L O complet a 017 ed detecti 03:26 on in urine sedimen t by Urine 11-14-2 NEGATIV NEG complet total 017 E ed bilirub 03:26 NEGATIV in E L detecti on by test Urine 11-14-2 NEGATIV NEG complet blood 017 E ed detecti 03:26 NEGATIV on E L Urine 03-17-2 YELLOW YELLOW complet color 017 YELLOW ed 03:26 L Glucose 03-17-2 = NEG complet ur 017 NEGATIV ed test 03:26 E strip Urine NEGATIV NEG complet ketones 017 E ed 03:26 NEGATIV detecti E L on by mg/dL automat ed robert Mucus NEGATIV NEG complet detecti 017 E ed on in 03:26 NEGATIV urine E L sedimen t by lig Mucus 03-17-2 1+ 1+ L OCC complet detecti 017 ed on in 03:26 urine sedimen t by lig Urine NEGATIV NEG complet nitrite 017 E ed 03:26 NEGATIV detecti E L on by test strip Urine 2 = 6.0 5.0-8.5 complet pH 017 ed 03:26 Urine = NEG complet protein 017 NEGATIV ed 03:26 E mg/dL measure ment by automat ed t Urine 03-17-2 > = 1.005-1 complet specifi 017 1.030 .030 ed c 03:26 gravity measure ment Urine 03-17-2 0.2 0.2 NEG complet urobili 017 L ed nogen 03:26 E.U./dL detecti on by test str Urine 2 3 - 5 O complet leukocy 017 wbc/hpf ed robert 03:26 count (number /volume ) CBC w auto diff (03-16-2017 18:30) Automat = 0.1 0-0.2 complet ed 017 K/MM3 ed blood 18:30 basophi l count (count/ vo Baso % = 0.6 % 0.1-2.0 complet 017 ed 18:30 Automat = 0.2 0.0-0.4 complet ed 017 K/mm3 ed blood 18:30 eosinop hil count Automat = 2.5 % 0.1-12. complet ed 017 0 ed blood 18:30 eosinop hils/10 0 leukocy t Blood = 5.0 1.8-7.8 complet granulo 017 K/mm3 ed cytes 18:30 automat ed count (numb Granulo = 61.4 37.0-80 complet cyte 017 % .0 ed percent 18:30 age Blood = 35.9 37.0-47 complet hematoc 017 % .0 ed rit 18:30 (volume fractio n) Blood = 11.3 12.2-16 complet hemoglo 017 g/dL .2 ed bin 18:30 measure ment (mass/v olum Absolut = 2.5 0.7-4.5 complet e 017 K/mm3 ed lymphoc 18:30 yte count Lymphoc = 31.0 10-50.0 complet yte 017 % ed count, 18:30 blood, automat ed Mean = 27.3 27-31.2 complet corpusc 017 pg ed ular 18:30 hemoglo bin (MCH) determ Automat = 31.3 31.8-35 complet ed 017 g/dl .4 ed erythro 18:30 cyte mean corpusc ular h Automat = 87.1 82.2-97 complet ed 017 fl .8 ed erythro 18:30 cyte mean corpusc ular v Absolut = 0.4 0.1-1.0 complet e 017 K/mm3 ed monocyt 18:30 e count Mathews % = 4.6 % 1.7-9.3 complet 017 ed 18:30 Automat = 7.8 7.4-10. complet ed 017 fl 4 ed blood 18:30 platele t mean volume get Blood = 248 142-424 complet platele 017 K/mm3 ed t count 18:30 Red = 4.12 4.2-5.4 complet blood 017 M/mm3 ed cell 18:30 count Automat = 17.6 11.5-17 complet ed 017 % .5 ed erythro 18:30 cyte distrib ution width Blood = 8.2 4.8-10. complet leukocy 017 K/MM3 8 ed robert 18:30 count (number /volume ) Serum or plasma beta human chorionic raymond (03-16-2017 18:30) Serum 13-2 0 0 L complet or 017 mIU/ML ed plasma 18:30 beta human chorion ic raymond Comment: NON- FEMALES REFERENCE RANGE = 0 - 6 mIU/mL Comment: Comment: Gestational Age HCG RANGE Comment: 0.2 WEEKS 5 - 50 Comment: 1-2 WEEKS 50 - 500 Comment: 2-3 WEEKS 100 - 5,000 Comment: 3-4 WEEKS 500 - 10,000 Comment: 4-5 WEEKS 1,000 - 50,000 Comment: 5-6 WEEKS 10,000 - 100,000 Comment: 6-8 WEEKS 15,000 - 200,000 Comment: 2-3 MONTHS 10,000 - 100,000 Basic metabolic panel (03-16-2017 18:30) Serum 11-13-2 = 8.6 8.5-10. complet or 017 mg/dL 1 ed plasma 18:30 calcium measure ment (mas Serum = 106 98-107 complet or 017 mmoL/L ed plasma 18:30 chlorid e measure ment (mo Carbon = 25 21.0-32 complet dioxide 017 mmoL/L .0 ed 18:30 measure ment Serum 03-16-2 = 0.9 0.55-1. complet or 017 mg/dL 02 ed plasma 18:30 creatin ine measure ment ( Estimat = 119 50-200 complet ion of 017 ML/MIN ed creatin 18:30 ine renal clearan ce Estimat = 75 59- complet ed 017 ML/MIN ed glomeru 18:30 lar filtrat ion rate (GF Comment: REFERENCE RANGE: >60 ML/MIN/1.73 SQUARE METERS Comment: If this patient is -Mongolian, then multiply the Comment: result by 1.210. Serum 11-13-2 = 93 74-106 complet or 017 mg/dL ed plasma 18:30 glucose measure ment (mas Serum 03-16-2 = 4.0 3.5-5.1 complet potassi 017 mmoL/L ed um 18:30 measure ment Serum --2 = 140 136-145 complet sodium 017 mmoL/L ed measure 18:30 ment Serum -13-2 = 11 7-18 complet or 017 mg/dL ed plasma 18:30 urea nitroge n measure men Choriogonadotropin.beta subunit ( test) [Presence] in Serum or Plasma (03-16-2017 18:30) Choriog 0 complet onadotr 017 ed opin.be 18:30 ta subunit (pregna ncy test) [Presen ce] in Serum or Plasma Urinalysis with microscopy (02-15-2017 16:40) Urine = [...] on in urine sedimen t by Urine 02-15- TURBID CLEAR complet appeara 017 TURBID ed nce 16:40 L determi [facility] Urine test (02-15-2017 16:40) Urine 15-2 = NEG complet pregnan 017 NEGATIV ed cy test 16:40 E Urinalysis dipstick W Reflex Microscopic panel in Urine (02-15-2017 16:40) Bacteri 02-15- 2+ O complet a 017 ed [Presen 16:40 ce] in Urine sedimen t by Light microsc opy Erythro 02-15- TNTC 0 complet cytes 017 ed [Presen 16:40 ce] in Urine sedimen t by Light microsc opy Epithel 02-15- 10-20 0#/hp complet ial 017 f - ed cells.s 16:40 5#/hp quamous f [Presen ce] in Urine sedimen t by Microsc opy high power field Urinalysis dipstick W Reflex Microscopic panel in Urine (02-15-2017 16:40) Appeara 15-2 TURBID CLEAR complet nce of 017 ed Urine 16:40 Bilirub 02-15-2 NEGATIV NEG complet in 017 E ed [Presen 16:40 ce] in Urine by Test strip Erythro 02-15- 3+ NEG Abnorma complet cytes 017 l ed [Presen 16:40 ce] in Urine Color 02-15-2 KUMAR YELLOW complet of 017 ed Urine 16:40 Ketones 02-15-2 1+ NEG Abnorma complet 017 l ed [Presen 16:40 ce] in Urine by Automat ed test strip Mucus 02-15-2 TRACE NEG Abnorma complet [Presen 017 l ed ce] in 16:40 Urine sedimen t by Light microsc opy Nitrite 02-15- NEGATIV NEG complet 017 E ed [Presen 16:40 ce] in Urine by Test strip Urobili 02-15-2 0.2 NEG complet nogen 017 ed [Presen [...] Ab Ser Ql (06-27-2016 15:47) HCV Ab [id number] Non-[place] complet Ser 017 07 ctive ed Donr Ql 15:47 Non-[place] ctive SCT CBC W Diff pnl,unspecified Bld (06-27-2016 08:11) Imm 02-24-2 0.08 0.00-0. complet Granulo 017 10*3/mm 03 ed cytes # 08:11 3 Bld Basophi 02-24-2 0.01 0.00-0. complet ls # 017 10*3/mm 20 ed Bld 08:11 3 Auto Eosinop 02-24-2 0.12 0.10-0. complet hil # 017 10*3/mm 30 ed Bld 08:11 3 Auto Monocyt 02-24-2 0.92 0.00-1. complet es # 017 10*3/mm 00 ed Bld 08:11 3 Auto Lymphoc 02-24-2 3.87 0.60-4. complet ytes # 017 10*3/mm 80 ed Bld 08:11 3 Auto Neutrop 02-24-2 9.30 1.50-8. complet hils # 017 10*3/mm 30 ed Bld 08:11 3 Auto Imm 02-24-2 0.6 % 0.0-0.6 complet Granulo 017 ed cytes 08:11 NFr Bld Basophi 02-24-2 0.1 % 0.0-1.0 complet ls NFr 017 ed Bld 08:11 Auto Eosinop 02-24-2 0.8 % 0.0-3.0 complet hil NFr 017 ed Bld 08:11 Auto Monocyt 02-24-2 6.4 % 0.0-12. complet es NFr 017 0 ed Bld 08:11 Auto Lymphoc 02-24-2 27.1 % 24.0-44 complet ytes 017 .0 ed NFr Bld 08:11 Auto Neutrop 02-24-2 65.0 % 41.0-71 complet hils 017 .0 ed NFr Bld 08:11 Auto Platele 02-24-2 214 150-450 complet t # Bld 017 10*3/mm ed Auto 08:11 3 PMV Bld 0224-2 10.9 fL 6.0-12. complet Auto 017 0 ed 08:11 RDW RBC 02-24-2 54.1 fl 37.0-54 complet Auto 017 .0 ed 08:11 RDW RBC 02-24-2 16.1 % 11.3-14 complet 017 .5 ed Auto-Rt 08:11 o MCHC 02-24-2 32.9 32.0-36 complet RBC 017 g/dL .0 [...] W Diff pnl,unspecified Bld (06-26-2016 09:17) nRBC/10 23-2 0.0 0.0-0.0 complet 0 WBC 017 /100 ed Bld 09:17 WBC Manual- Rto Imm 23-2 0.03 0.00-0. complet Granulo 017 10*3/mm 03 ed cytes # 09:17 3 Bld Basophi 23-2 0.00 0.00-0. complet ls # 017 10*3/mm 20 ed Bld 09:17 3 Auto Eosinop 23-2 0.04 0.10-0. complet hil # 017 10*3/mm [...] NFr 017 ed Bld 09:17 Auto Monocyt -23-2 8.1 % 0.0-12. complet es NFr 017 0 ed Bld 09:17 Auto Lymphoc -23-2 15.9 % 24.0-44 complet ytes 017 .0 ed NFr Bld 09:17 Auto Neutrop -23-2 75.5 % 41.0-71 complet hils 017 .0 ed NFr Bld 09:17 Auto Platele -23-2 181 150-450 complet t # Bld 017 10*3/mm ed Auto 09:17 3 PMV Bld 23-2 11.6 fL 6.0-12. complet Auto 017 0 ed 09:17 RDW RBC -23-2 53.1 fl 37.0-54 complet Auto 017 .0 ed 09:17 RDW RBC -23-2 15.8 % 11.3-14 complet 017 .5 ed [...] W Diff pnl,unspecified Bld (06-24-2016 10:55) Imm 06-24-2 0.04 0.00-0. complet Granulo 017 10*3/mm 03 ed cytes # 10:55 3 Bld Basophi 02-21-2 0.02 0.00-0. complet ls # 017 10*3/mm 20 ed Bld 10:55 3 Auto Eosinop 02-21-2 0.03 0.10-0. complet hil # 017 10*3/mm 30 ed Bld 10:55 3 Auto Monocyt 02-21-2 0.97 0.00-1. complet es # 017 10*3/mm 00 ed Bld 10:55 3 Auto Lymphoc 02-21-2 2.41 0.60-4. complet ytes # 017 10*3/mm 80 ed Bld 10:55 3 Auto Neutrop 02-21-2 6.85 1.50-8. complet hils # 017 10*3/mm 30 ed Bld 10:55 3 Auto Imm 02-21-2 0.4 % 0.0-0.6 complet Granulo 017 ed cytes 10:55 NFr Bld Basophi 02-21-2 0.2 % 0.0-1.0 complet ls NFr 017 ed Bld 10:55 Auto Eosinop 02-21-2 0.3 % 0.0-3.0 complet hil NFr 017 ed Bld 10:55 Auto Monocyt 02-21-2 9.4 % 0.0-12. complet es NFr 017 0 ed Bld 10:55 Auto Lymphoc 02-21-2 23.4 % 24.0-44 complet ytes 017 .0 ed NFr Bld 10:55 Auto Neutrop 02-21-2 66.3 % 41.0-71 complet hils 017 .0 ed NFr Bld 10:55 Auto Platele 02-21-2 225 150-450 complet t # Bld 017 10*3/mm ed Auto 10:55 3 PMV Bld 02-21-2 11.6 fL 6.0-12. complet Auto 017 0 ed 10:55 RDW RBC 02-21-2 51.8 fl 37.0-54 complet Auto 017 .0 ed 10:55 RDW RBC 02-21-2 15.6 % 11.3-14 complet 017 .5 ed Auto-Rt 10:55 o MCHC 02-21-2 33.3 32.0-36 complet RBC 017 g/dL .0 ed Auto-mC 10:55 nc MCH RBC 21-2 30.8 pg 27.0-31 complet Qn 017 .0 ed Auto 10:55 MCV RBC -21-2 92.3 fL 80.0-99 complet Auto 017 .0 ed 10:55 Hct VFr -21-2 33.6 % 34.5-44 complet Bld 017 .0 ed Auto 10:55 Hgb -21-2 11.2 11.5-15 complet Bld-mCn 017 g/dL .5 ed c 10:55 RBC # -21-2 3.64 3.89-5. complet Bld 017 10*6/mm 14 ed Auto 10:55 3 WBC -21-2 10.32 3.50-10 complet nRBC 017 10*3/mm .80 ed cor # 10:55 3 Bld Drugs Ur Scn (06-03-2016 14:44) Cannabi [id number] Negativ complet noids 017 09 e ed SerPl 14:44 Negativ Ql e SCT Bupreno [id number] Negativ complet rphine 017 09 e ed SerPl-m 14:44 Negativ Cnc e SCT Propoxy [id number] Negativ complet ph Ur 017 09 e ed Ql 14:44 Negativ e SCT Oxycodo [id number] Negativ complet ne Ur 017 09 e ed Ql Scn 14:44 Negativ e SCT Barbitu [id number] Negativ complet rates 017 09 e ed Ur Ql 14:44 Negativ Scn e SCT Methado [id number] Negativ complet ne Ur 017 09 e ed Ql Scn 14:44 Negativ e SCT Tricycl [id number] Negativ complet ics Ur 017 09 e ed Ql Scn 14:44 Negativ e SCT Benzodi [id number] Negativ complet az Ur 017 09 e ed Ql Scn 14:44 Negativ e SCT Amphet+ [id number] Negativ complet Methamp 017 09 e ed het Ur 14:44 Negativ Ql e SCT Opiates [id number] Negativ complet Ur Ql 017 09 e ed 14:44 Negativ e SCT Ampheta [id number] Negativ complet mines 017 09 e ed Ur Ql 14:44 Negativ e SCT Cocaine [id number] Negativ complet Ur Ql 017 09 e ed 14:44 Negativ e SCT PCP Ur [id number] Negativ complet Ql Scn 017 09 e [...] Ql 19:47 , 1.0 Strip E.U./dL Nitrite [id number] Negativ complet Ur Ql 016 09 e ed Strip 19:47 Negativ e SCT Leukocy [id number] Negativ complet te 016 09 e ed esteras 19:47 Negativ e Ur Ql e SCT Strip.a uto Prot Ur [id number] Negativ complet Ql 016 09 e ed Strip 19:47 Negativ e SCT Hgb Ur [id number] Negativ complet Ql 016 09 e ed Strip.a 19:47 Negativ uto e SCT Bilirub [id number] Negativ complet Ur Ql 016 09 e ed Strip 19:47 Negativ e SCT Ketones [id number] Negativ complet Ur Ql 016 06 e ed Strip 19:47 Trace SCT Glucose [id number] Negativ complet Ur 016 09 e ed Strip-m 19:47 Negativ Cnc e SCT Sp Gr 1.015 1.005-1 complet Ur 016 .030 ed Strip 19:47 pH Ur 5.5 5.0-8.0 complet Strip.a 016 ed uto 19:47 Clarity [id number] Clear complet Ur 016 01 ed 19:47 Clear SCT Color [id number] Yellow, complet Ur 016 09 Straw ed [...] Ql 17:44 , 1.0 Strip E.U./dL Nitrite [id number] Negativ complet Ur Ql 016 09 e ed Strip 17:44 Negativ e SCT Leukocy [id number] Negativ complet te 016 09 e ed esteras 17:44 Negativ e Ur Ql e SCT Strip.a uto Prot Ur 30 Negativ complet Ql 016 mg/dL e ed Strip 17:44 (1+) Hgb Ur [id number] Negativ complet Ql 016 01 e ed Strip.a 17:44 Large uto SCT Bilirub [id number] Negativ complet Ur Ql 016 09 e ed Strip 17:44 Negativ e SCT Ketones [id number] Negativ complet Ur Ql 016 09 e ed Strip 17:44 Negativ e SCT Glucose [id number] Negativ complet Ur 016 09 e ed Strip-m 17:44 Negativ Cnc e SCT Sp Gr >= 1.005-1 complet Ur 016 1.030 .030 ed Strip 17:44 pH Ur <= 5.0 5.0-8.0 complet Strip.a 016 ed uto 17:44 Clarity [id number] Clear complet Ur 016 02 ed 17:44 Turbid SCT Color [id number] Yellow, complet Ur 016 00 Red Straw ed 17:44 [address] SCT URINE HCG (05-09-2014 21:41) URINE 05-09-2 NEGATIV complet HCG 015 E ed 21:41 URINALYSIS COMPLETE (05-09-2014 21:41) HYALINE 05-09-2 2 /LPF 0-4 complet CAST 015 ed 21:41 BACTERI 05-09-2 NEGATIV NEGATIV complet A COUNT 015 E /HPF E ed 21:41 EPITHEL 06-2 3 /HPF 0-6 complet IAL 015 ed CELL 21:41 COUNT WBC 06-2 0 /HPF 0-5 complet COUNT 015 ed 21:41 RBC 06-2 1 /HPF 0-4 complet COUNT 015 ed 21:41 LEUKOCY 06-2 NEGATIV NEGATIV complet ROBERT 015 E E ed 21:41 NITRITE -06-2 NEGATIV NEGATIV complet 015 E E ed 21:41 UROBILI -06-2 0.2 0.2-1.0 complet NOGEN 015 E.U./DL ed 21:41 PROTEIN -06-2 NEGATIV NEGATIV complet 015 E MG/DL E ed 21:41 PH 06-2 5.5 5.0-9.0 complet 015 ed 21:41 BLOOD 01-06-2 NEGATIV NEGATIV complet 015 E E ed 21:41 SPECIFI 2 1.018 1.006-1 complet C 015 .035 ed GRAVITY 21:41 KETONE 2 NEGATIV NEGATIV complet 015 E MG/DL E ed 21:41 BILIRUB NEGATIV NEGATIV complet IN 015 E E ed 21:41 GLUCOSE NEGATIV NEGATIV complet 015 E MG/DL E ed 21:41 CLARITY CLEAR complet 015 ed 21:41 COLOR YELLOW complet 015 ed 21:41 AMYLASE (05-09-2014 21:40) AMYLASE 70 U/L 25-115 complet 015 ed 21:40 GLOMELULAR PABLO. RATE,CALC. (05-09-2014 21:40) GLOMELU [...] complet 015 MG/DL 1 ed 21:40 A/G 2 1.0 0.6-1.6 complet RATIO 015 ed 21:40 GLOBULI 2 4.3 2.4-4.8 complet N 015 G/DL ed 21:40 ALBUMIN 2 4.1 3.4-5.0 complet 015 G/DL ed 21:40 PROTEIN 2 8.4 6.4-8.4 complet , TOTAL 015 G/DL ed 21:40 CREATIN 2 0.6 0.6-1.3 complet [...] 80 U/L 73-393 complet 015 ed 21:40 CBC\\T\\AUTO DIFF (05-09-2014 21:40) WBC 8.6 3.0-11. complet 015 K/UL 3 ed 21:40 BASO# -06-2 0.0 0.0-0.2 complet 015 K/ul ed 21:40 EOS# 06-2 0.1 0.0-0.9 complet 015 K/ul ed 21:40 MONOS# 06-2 0.4 0.2-0.6 complet 015 K/ul ed 21:40 LYMPH# 06-2 2.9 0.4-3.9 complet 015 K/ul ed 21:40 NEUT # 06-2 5.1 2.7-6.9 complet 015 K/ul ed 21:40 [...] is not a Physician's Portal User CALCIUM 11-25-2 8.5 8.5-10. complet 014 MG/DL 1 ed 03:43 CREATIN 11-25-2 0.8 0.6-1.3 complet INE 014 MG/DL ed 03:43 CO2 11-25-2 27 21-32 complet 014 mmol/L ed 03:43 CHLORID 11-25-2 107 98-107 complet E 014 mmol/l ed [...] Portal User URINE 11-24-2 NEG NEGATIV complet AMPHETA 014 [...] SCREEN RESULTS ARE NOT FOR LEGAL APPLICATIONS. URINALYSIS COMPLETE (03-26-2014 18:00) COLOR 11-23-2 YELLOW [...] HPF Absent complet A 014 ed 18:00 URINE HCG (03-26-2014 18:00) URINE 11-23-2 NEGATIV complet HCG 014 E ed 18:00 AMYLASE (03-26-2014 17:48) AMYLASE 11-23-2 [...] 50-59 93 ML/MIN Comment: 60-69 85 ML/MIN COMP. METABOLIC PANEL (CHEM 12) (03-26-2014 17:48) [...] hemolyzed. Results may be falsely elevated. SODIUM 03-26-2 136 133-144 complet 014 mmol/L ed 17:48 ALBUMIN 03-26-2 3.9 3.4-5.0 complet 014 G/DL ed 17:48 GLUCOSE 03-26-2 80 70-110 complet 014 MG/DL ed 17:48 LIPASE (03-26-2014 17:48) LIPASE 03-26-2 77 U/L 73-393 complet 014 ed 17:48 CBC\\T\\AUTO DIFF (03-26-2014 17:48) NEUT # 23-2 6.7 2.7-6.9 complet 014 K/ul ed 17:48 PLATELE 03-26-2 283 122-454 complet T 014 K/UL ed 17:48 RDW 03-26-2 14.3 % 10.1-16 complet 014 .2 ed 17:48 MCHC 03-26-2 33.3 32.5-35 complet 014 g/dl .3 ed 17:48 MCH 23-2 31.2 pg 26.4-33 complet 014 .3 ed 17:48 MCV 03-26-2 93.6 fl 78.2-10 complet 014 1.8 ed 17:48 HCT 23-2 39.0 % 29.9-45 complet 014 .5 ed 17:48 HGB 03-26-2 13.0 10.0-16 complet 014 gm/dl .0 ed 17:48 RBC 23-2 4.170 3.450-5 complet 014 M/ul .400 ed 17:48 WBC 23-2 10.1 3.0-11. complet 014 K/UL 3 ed 17:48 EOS% 11-23-2 0.7 % 0.0-11. complet 014 0 ed 17:48 MONOS% 11-23-2 6.4 % 1.0-14. complet 014 0 ed 17:48 LYMPH% 11-23-2 26.7 % 10.0-42 complet 014 .0 ed 17:48 NEUTROP 11-23-2 65.9 % 43.0-83 complet HILS% 014 .0 ed 17:48 MPV -23-2 9.1 fl 6.4-10. complet 014 4 ed 17:48 LYMPH# 11-23-2 2.7 0.4-3.9 complet 014 K/ul ed 17:48 BASO% 03-26-2 0.3 % 0.0-2.0 complet 014 ed 17:48 EOS# -23-2 0.1 0.0-0.9 complet 014 K/ul ed 17:48 MONOS# -23-2 0.6 0.2-0.6 complet 014 K/ul ed 17:48 BASO# 11-23-2 0.0 0.0-0.2 complet 014 K/ul ed 17:48 GLOMELULAR PABLO. RATE,CALC. (03-24-2014 08:35) GLOMELU 125.8 60.0-13 complet LAR 014 ml/min 0.0 ed PABLO. 08:35 RATE,CA LC. PHOSPHOROUS (03-24-2014 08:35) PHOSPHO 2.7 2.5-4.9 complet SADIQ 014 MG/DL ed 08:35 MAGNESIUM (03-24-2014 08:35) MAGNESI 1.9 1.7-2.4 complet UM 014 MG/DL ed 08:35 BASIC METABOLIC PANEL (CHEM 7) (03-24-2014 08:35) CALCIUM 8.0 8.5-10. complet 014 MG/DL 1 ed 08:35 CO2 26 21-32 complet 014 mmol/L ed 08:35 BUN 10 7-18 complet 014 MG/DL ed 08:35 GLUCOSE 99 70-110 complet 014 MG/DL ed 08:35 POTASSI 4.0 3.6-5.2 complet UM 014 mmol/l ed 08:35 SODIUM 139 133-144 complet 014 mmol/L ed 08:35 CREATIN 0.8 0.6-1.3 complet INE 014 MG/DL ed 08:35 CHLORID 108 98-107 complet E 014 mmol/l ed 08:35 CBC/NO DIFF+ PLATELET (03-24-2014 08:35) HGB 12.1 10.0-16 complet 014 gm/dl .0 ed 08:35 RBC 11-21-2 3.870 3.450-5 complet 014 M/ul .400 ed [...] 3.0-11. complet 014 K/UL 3 ed 08:35 MAGNESIUM (03-23-2014 10:50) MAGNESI 03-23-2 1.5 1.7-2.4 complet UM 014 MG/DL ed [...] 3.0-11. complet 014 K/UL 3 ed 10:50 GLOMELULAR PABLO. RATE,CALC. (03-23-2014 10:50) GLOMELU 11-20-2 125.8 60.0-13 complet LAR 014 ml/min 0.0 ed PABLO. 10:50 RATE,CA LC. PHOSPHOROUS (03-23-2014 10:50) PHOSPHO 11-20-2 2.5 2.5-4.9 complet SADIQ 014 MG/DL ed 10:50 URINALYSIS COMPLETE (03-23-2014 05:00) HYALINE [...] 014 E MG/DL E ed 05:00 PH 6.0 5.0-9.0 complet 014 ed 05:00 BLOOD 03-23-2 NEGATIV NEGATIV complet 014 E E ed 05:00 SPECIFI 03-23-2 1.070 1.006-1 complet C 014 .035 ed GRAVITY 05:00 KETONE 03-23-2 NEGATIV NEGATIV complet 014 E MG/DL E ed 05:00 BILIRUB 2 NEGATIV NEGATIV complet IN 014 E E ed 05:00 GLUCOSE 2 NEGATIV NEGATIV complet 014 E MG/DL E ed 05:00 CLARITY CLEAR complet 014 ed 05:00 COLOR 2 YELLOW complet 014 ed 05:00 URINE HCG (03-23-2014 05:00) URINE 03-23-2 NEGATIV complet HCG 014 E ed 05:00 [...] ed 15:13 CBC\\T\\AUTO DIFF (03-22-2014 15:09) WBC 03-22-2 6.7 3.0-11. complet 014 K/UL 3 ed 15:09 MONOS# 03-22-2 0.6 0.2-0.6 complet 014 K/ul ed 15:09 LYMPH# 03-22-2 2.3 0.4-3.9 complet 014 K/ul ed 15:09 NEUT # 03-22-2 3.7 2.7-6.9 complet 014 K/ul ed 15:09 BASO% 03-22-2 0.8 % 0.0-2.0 complet 014 ed 15:09 BASO# 03-22-2 0.1 0.0-0.2 complet 014 K/ul ed 15:09 EOS# 03-22-2 0.1 0.0-0.9 complet 014 K/ul ed 15:09 PLATELE 235 122-454 complet T 014 K/UL ed 15:09 RDW 14.8 % 10.1-16 complet 014 .2 ed 15:09 MCHC 33.0 32.5-35 complet 014 g/dl .3 ed 15:09 MCH 03-22- 31.1 pg 26.4-33 complet 014 .3 ed 15:09 MCV 03-22- 94.3 fl 78.2-10 complet 014 1.8 ed 15:09 HCT 03-22- 38.6 % 29.9-45 complet 014 .5 ed 15:09 HGB 12.8 10.0-16 complet 014 gm/dl .0 ed 15:09 RBC 03-22-2 4.100 3.450-5 complet 014 M/ul .400 ed 15:09 EOS% 03-22-2 1.3 % 0.0-11. complet 014 0 ed 15:09 MONOS% 03-22-2 8.7 % 1.0-14. complet 014 0 ed 15:09 LYMPH% 03-22-2 33.7 % 10.0-42 complet 014 .0 ed 15:09 NEUTROP 03-22-2 55.5 % 43.0-83 complet HILS% 014 .0 ed 15:09 MPV 03-22-2 8.8 fl 6.4-10. complet 014 4 ed 15:09 DAU10 (05-13-2012 00:54) OPIATE -10-2 NEGATIV NEGATIV Normal complet SCREEN 013 E E ed 00:54 OXYCODO -10-2 NEGATIV NEGATIV Normal complet NE SCR 013 E E ed 00:54 METHAQU -10-2 NEGATIV NEGATIV Normal complet ALONE 013 E E ed SCR 00:54 BARBITU 05-13-2 POSITIV NEGATIV Abnorma complet RATE 013 E E l ed SCREEN 00:54 Comment: This test is for Medical Purpose Only. Chain of Custody is Comment: required for drug testing for legal use. PHENCYC 05-13-2 NEGATIV NEGATIV Normal complet LIDINE 013 E E ed SCREEN 00:54 AMPHETA --2 NEGATIV NEGATIV Normal complet MINE 013 E E ed SCREEN 00:54 BENZODI 05-13-2 NEGATIV NEGATIV Normal complet AZEPINE 013 E E ed SCREEN 00:54 COCAINE 05-13-2 NEGATIV NEGATIV Normal complet SCREEN 013 E E ed 00:54 METHADO 05-13-2 NEGATIV NEGATIV Normal complet NE 013 E E ed SCREEN 00:54 CANNABI 05-13-2 NEGATIV NEGATIV Normal complet NOID 013 E E ed SCREEN 00:54 [facility] (UA W MICRO AND CULTURE) (05-13-2012 00:54) COLOR,U 05-13- YELLOW Normal complet RINE 013 ed 00:54 APPEARA 10-2 CLEAR Normal complet NCE,URI 013 ed NE 00:54 BLOOD, 05-13-2 NEGATIV NEGATIV Normal complet URINE 013 E E ed 00:54 PH,URIN 05-13- 6.0 4.5-8.0 Normal complet E 013 ed 00:54 SPECIFI 05-13-2 1.020 1.003-1 Normal complet C 013 .035 ed GRAVITY 00:54 , URINE PROTEIN 10-2 NEGATIV NEGATIV Normal complet ,URINE 013 E mg/dL E ed 00:54 GLUCOSE 05-13-2 NEGATIV NEGATIV Normal complet , URINE 013 E mg/dL E ed (UA) 00:54 KETONES 05-13- 40 NEGATIV Abnorma complet ,URINE 013 mg/dL [...] mmol/L ed 00:25 LIPASE (05-13-2012 00:25) LIPASE 21 u/L 13-60 Normal complet 013 ed 00:25 CBC WITH AUTO DIFF REFLEX (05-13-2012 00:25) NEUTROP 61.3 % 43.1-74 Normal complet HILS % 013 .8 ed (AUTO) 00:25 Comment: If a manual differential is indicated, submit order within Comment: 48 hours" BASOPHI 0.0 X 0.0-0.2 Normal complet LS # 013 10 3 ed (AUTO) 00:25 LYMPHOC 28.9 % 17.6-40 Normal complet YTES % 013 .8 ed (AUTO) 00:25 MONOCYT 05-13-2 5.4 % 4.4-11. Normal complet ES % 013 0 ed (AUTO) 00:25 EOSINOP 1.6 % 0.0-5.8 Normal complet HILS % 013 ed (AUTO) 00:25 BASOPHI 0.3 % 0-1.6 Normal complet LS % 013 ed (AUTO) 00:25 NEUTROP 05-13-2 5.2 X 1.8-7.0 Normal complet HILS # 013 10 3 ed (AUTO) 00:25 LYMPHOC -10-2 2.5 X 1.0-3.3 Normal complet YTES # 013 10 3 ed (AUTO) 00:25 MONOCYT 01-10-2 0.5 X 0.3-0.9 Normal complet ES # 013 10 3 ed (AUTO) 00:25 EOSINOP -10-2 0.1 X 0.0-0.5 Normal complet HILS # 013 10 3 ed (AUTO) 00:25 WBC 01-10-2 8.5 X 4.8-10. Normal complet (WHITE 013 [...] 27-31 Normal complet 013 ed 00:25 MCHC -10-2 31.5 32-36 Below complet 013 g/dL low ed 00:25 normal RDW -10-2 14.6 % 11.5-14 Above complet 013 .5 high ed 00:25 normal PLATELE -10-2 271 x10 130-400 Normal complet T COUNT 013 3 ed 00:25 MEAN -10-2 7.9 fL 6.0-10. Normal complet PLATELE 013 [...] Comment: results. STREP SCREEN CONFIRMATION (03-22-2012 02:28) [facility] l 012 n: ed Report 02:28 OTHER-S PECIFY Clinic Collect complet l 012 ed: ed Report 02:28 012 02:28 [facility] Status: complet l 012 Final ed Report 02:28 Last Updated : 012 22:22 Clinic CUL RES complet l 012 ed Report 02:28 (Final) Clinica Negativ complet l 012 e for ed Report 02:28 Beta Hemolyt ic Strep at 24 hrs Clinica Negativ complet l 012 e for ed Report 02:28 Beta Hemolyt ic Strep at 48 hrs
--- OUTSIDE RECORDS SUMMARY | 2017-03-30 16:42 | External Medical Summary Rpt | CCD ---
Author Author , BOLIVAR Organization BOLIVAR Address Unknown Phone [email or web address] Purpose Continuity of Care Document - 03-22-2012 [...] 017 K/mm3 ed monocyt 12:48 e count Craven % = 3.6 % 1.7-9.3 complet 017 [...] metabolic panel (03-18-2017 12:15) Comment: COMMENTS TO U.S. SENATOR: TEMP Serum = 7 7-18 complet or 017 mg/dL ed plasma 12:15 urea nitroge n measure men Serum 2 = 0.9 1.1-1.8 complet or 017 ed plasma 12:15 albumin /globul in mass ra Serum = 2.8 3.4-5.0 complet or 017 gm/dL ed plasma 12:15 albumin measure ment (mas Serum = 61 46-116 complet or 017 U/L ed plasma 12:15 alkalin e phospha tase get Serum = 0.2 0.2-1.0 complet or 017 [...] SQUARE METERS Comment: If this patient is -[place], then multiply the Comment: result by 1.210. [...] auto diff (03-18-2017 12:15) Comment: COMMENTS TO U.S. SENATOR: TEMP Automat = 0.0 0-0.2 complet ed [...] 017 K/mm3 ed monocyt 12:15 e count Craven % = 3.4 % 1.7-9.3 complet 017 [...] RESPIRATORY PANEL,PCR (03-18-2017 10:43) Comment: COMMENTS TO U.S. SENATOR: TEMP Stool NOT NOT complet adenovi 017 [...] with microscopy (03-18-2017 09:00) Comment: COMMENTS TO U.S. SENATOR: TEMP Comment: Collected by nurse? Y Comment: [...] 017 K/mm3 ed monocyt 18:30 e count Craven % = 4.6 % 1.7-9.3 complet 017 [...] SQUARE METERS Comment: If this patient is -[place]ghan, then multiply the Comment: result by 1.210. [...] 017 TURBID ed nce 16:40 L determi [facility] Urine test (02-15-2017 16:40) Urine 15-2 = [...] Ab Ser Ql (06-27-2016 15:47) HCV Ab [id number] Non-[place] complet Ser 017 07 ctive ed [...] Bld Drugs Ur Scn (06-03-2016 14:44) Cannabi [id number] Negativ complet noids 017 09 e ed SerPl 14:44 Negativ Ql e SCT Bupreno 5762677 Negativ complet rphine 017 09 e ed SerPl-m 14:44 Negativ Cnc e SCT Propoxy 9729523 Negativ complet ph Ur 017 09 e ed Ql 14:44 Negativ e SCT Oxycodo 0353478 Negativ complet ne Ur 017 09 e ed Ql Scn 14:44 Negativ e SCT Barbitu 8078364 Negativ complet rates 017 09 e ed Ur Ql 14:44 Negativ Scn e SCT Methado 1372225 Negativ complet ne Ur 017 09 e ed Ql Scn 14:44 Negativ e SCT Tricycl 4077471 Negativ complet ics Ur 017 09 e ed Ql Scn 14:44 Negativ e SCT Benzodi 2497285 Negativ complet az Ur 017 09 e ed Ql Scn 14:44 Negativ e SCT Amphet+ 4327484 Negativ complet Methamp 017 09 e ed het Ur 14:44 Negativ Ql e SCT Opiates 8655670 Negativ complet Ur Ql 017 09 e ed 14:44 Negativ e SCT Ampheta 6274627 Negativ complet mines 017 09 e ed Ur Ql 14:44 Negativ e SCT Cocaine 8533443 Negativ complet Ur Ql 017 09 e ed 14:44 Negativ e SCT PCP Ur 6600355 Negativ complet Ql Scn 017 09 e [...] Ql 19:47 , 1.0 Strip E.U./dL Nitrite 5515366 Negativ complet Ur Ql 016 09 e ed Strip 19:47 Negativ e SCT Leukocy 1712692 Negativ complet te 016 09 e ed esteras 19:47 Negativ e Ur Ql e SCT Strip.a uto Prot Ur 6557577 Negativ complet Ql 016 09 e ed Strip 19:47 Negativ e SCT Hgb Ur 2205693 Negativ complet Ql 016 09 e ed Strip.a 19:47 Negativ uto e SCT Bilirub 3809169 Negativ complet Ur Ql 016 09 e ed Strip 19:47 Negativ e SCT Ketones 4549939 Negativ complet Ur Ql 016 06 e ed Strip 19:47 Trace SCT Glucose 4430717 Negativ complet Ur 016 09 e ed Strip-m 19:47 Negativ Cnc e SCT Sp Gr 1.015 1.005-1 complet Ur 016 .030 ed Strip 19:47 pH Ur 5.5 5.0-8.0 complet Strip.a 016 ed uto 19:47 Clarity 8548550 Clear complet Ur 016 01 ed 19:47 Clear SCT Color 2331161 Yellow, complet Ur 016 09 Straw ed [...] Ql 17:44 , 1.0 Strip E.U./dL Nitrite 9609536 Negativ complet Ur Ql 016 09 e ed Strip 17:44 Negativ e SCT Leukocy 5979610 Negativ complet te 016 09 e ed esteras 17:44 Negativ e Ur Ql e SCT Strip.a uto Prot Ur 30 Negativ complet Ql 016 mg/dL e ed Strip 17:44 (1+) Hgb Ur 9791750 Negativ complet Ql 016 01 e ed Strip.a 17:44 Large uto SCT Bilirub 8364629 Negativ complet Ur Ql 016 09 e ed Strip 17:44 Negativ e SCT Ketones 9275445 Negativ complet Ur Ql 016 09 e ed Strip 17:44 Negativ e SCT Glucose 1952514 Negativ complet Ur 016 09 e ed Strip-m 17:44 Negativ Cnc e SCT Sp Gr >= 1.005-1 complet Ur 016 1.030 .030 ed Strip 17:44 pH Ur <= 5.0 5.0-8.0 complet Strip.a 016 ed uto 17:44 Clarity [id number] Clear complet Ur 016 02 ed 17:44 Turbid SCT Color 6117196 Yellow, complet Ur 016 00 Red Straw [...] ed 21:41 LEUKOCY 06-2 NEGATIV NEGATIV complet ORBERT 015 E E ed 21:41 NITRITE -06-2 [...] NOID 013 E E ed SCREEN 00:54 [facility] (UA W MICRO AND CULTURE) [...] Comment: results. STREP SCREEN CONFIRMATION (03-22-2012 02:28) [facility] n: ed Report 02:28 OTHER-S PECIFY Clinic Collect complet l 012 ed: ed Report 02:28 012 02:28 [facility] Status: complet l 012 Final [...]
--- OUTSIDE RECORDS SUMMARY | 2017-03-30 16:43 | External Medical Summary Rpt | CCD ---
Author Author , BOLIVAR Organization BOLIVAR Address Unknown Phone [email or web address] Support Name Relationship Address Phone ALEX, Next [...]
--- OUTSIDE RECORDS SUMMARY | 2017-03-30 16:43 | External Medical Summary Rpt | CCD ---
Author Author , BOLIVAR Organization BOLIVAR Address Unknown Phone [email or web address] Support Name Relationship Address Phone ALEX, Next [...]
--- OUTSIDE RECORDS SUMMARY | 2017-03-30 16:45 | External Medical Summary Rpt ---
Author Author [employer] Boris, [employer] Organization [employer] Address Unknown Phone Unavailable Results CBC W Auto Differential panel in Blood Observa Value Referen Units Interpr Notes Date tion ce etation Range Basophils 0 - 0.2 K/MM3 Normal No Mar 232016 [#/volume on in 12:48 PM ] in source Blood by data Automated count Basophils 0.1 - 2.0 % Normal No Mar 23 /100 inform2016 leukocyte on in 12:48 PM s in source Blood by data Automated count Eosinophi 0.0 - 0.4 K/mm3 Normal No Mar 23 ls 2016 [#/volume on in 12:48 PM ] in source Blood by data Automated count Eosinophi 0.1 - % Normal No Mar 23 ls/100 12.0 2016 leukocyte on in 12:48 PM s in source Blood by data Automated count Granulocy 1.8 - 7.8 K/mm3 Normal No Mar 23 addis 2016 [#/volume on in 12:48 PM ] in source Blood by data Automated count Granulocy 37.0 - % Normal No Mar 23 addis/100 80.0 2016 leukocyte on in 12:48 PM s in source Blood by data Automated count Hematocri 37.0 - % Low No Mar 23 t [Volume 47.0 2016 on in 12:48 PM Fraction] source of Blood data Hemoglobi 12.2 - g/dL Low No Mar 23 n 16.2 2016 [Mass/vol on in 12:48 PM ume] in source Blood data Lymphocyt 0.7 - 4.5 K/mm3 Normal No Mar 23 es 2016 [#/volume on in 12:48 PM ] in source Unspecifi data ed specimen by Automated count Lymphocyt 10 - 50.0 % Normal No Mar 23 es 2016 [#/volume on in 12:48 PM ] in source Unspecifi data ed specimen by Automated count Erythrocy 27 - 31.2 pg Normal No Mar 23 te mean 2016 corpuscul on in 12:48 PM ar source hemoglobi data n [Entitic mass] Erythrocy 31.8 - g/dl Normal No Mar 23 te mean 35.4 2016 corpuscul on in 12:48 PM ar source hemoglobi data n concentra tion [Mass/vol ume] by Automated count Erythrocy 82.2 - fl Normal No Mar 23 te mean 97.8 2016 corpuscul on in 12:48 PM ar volume source [Entitic data volume] by Automated count Monocytes 0.1 - 1.0 K/mm3 Normal No Mar 232016 [#/volume on in 12:48 PM ] in source Blood by data Automated count Monocytes 1.7 - 9.3 % Normal No Mar 23 /2016 leukocyte on in 12:48 PM s in source Blood by data Automated count Platelet 7.4 - fl Normal No Mar 23 mean 10.4 2016 volume on in 12:48 PM [Entitic source volume] data in Blood by Automated count Platelets 142 - 424 K/mm3 Normal No Mar 232016 [#/volume on in 12:48 PM ] in source Blood data Erythrocy 4.2 - 5.4 M/mm3 Normal No Mar 23 addis 2016 [#/volume on in 12:48 PM ] in source Amniotic data fluid Erythrocy 11.5 - % High No Mar 23 te 17.5 2016 distribut on in 12:48 PM ion width source [Entitic data volume] by Automated count Leukocyte 4.8 - K/MM3 Normal No Mar 23 s 10.8 2016 [#/volume on in 12:48 PM ] in source Blood data CBC W Auto Differential panel in Blood Observa Value Referen Units Interpr Notes Date tion ce etation Range COMMENTS TO ACCOUNTS PAYABLES CLERK: TEMP Basophils 0 - 0.2 K/MM3 Normal No Mar 182016 [#/volume on in 12:15 PM ] in source Blood by data Automated count Basophils 0.1 - 2.0 % Normal No Mar 182016 leukocyte on in 12:15 PM s in source Blood by data Automated count Eosinophi 0.0 - 0.4 K/mm3 Normal No Mar 18 ls 2016 [#/volume on in 12:15 PM ] in source Blood by data Automated count Eosinophi 0.1 - % Normal No Mar 18 ls/100 12.0 inform2016 leukocyte on in 12:15 PM s in source Blood by data Automated count Granulocy 1.8 - 7.8 K/mm3 High No Mar 18 addis inform2016 [#/volume on in 12:15 PM ] in source Blood by data Automated count Granulocy 37.0 - % High No Mar 18 addis/100 80.0 2016 leukocyte on in 12:15 PM s in source Blood by data Automated count Hematocri 37.0 - % Low No Mar 18 t [Volume 47.0 ati 2016 on in 12:15 PM Fraction] source of Blood data Hemoglobi 12.2 - g/dL Low No Mar 18 n 16.2 informati 2016 [Mass/vol on in 12:15 PM ume] in source Blood data Lymphocyt 0.7 - 4.5 K/mm3 Normal No Mar 18 es 2016 [#/volume on in 12:15 PM ] in source Unspecifi data ed specimen by Automated count Lymphocyt 10 - 50.0 % Normal No Mar 18 es 2016 [#/volume on in 12:15 PM ] in source Unspecifi data ed specimen by Automated count Erythrocy 27 - 31.2 pg Normal No Mar 18 te mean 2016 corpuscul on in 12:15 PM ar source hemoglobi data n [Entitic mass] Erythrocy 31.8 - g/dl Normal No Mar 18 te mean 35.4 2016 corpuscul on in 12:15 PM ar source hemoglobi data n concentra tion [Mass/vol ume] by Automated count Erythrocy 82.2 - fl Normal No Mar 18 te mean 97.8 2016 corpuscul on in 12:15 PM ar volume source [Entitic data volume] by Automated count Monocytes 0.1 - 1.0 K/mm3 Normal No Mar 182016 [#/volume on in 12:15 PM ] in source Blood by data Automated count Monocytes 1.7 - 9.3 % Normal No Mar 18 /100 inform2016 leukocyte on in 12:15 PM s in source Blood by data Automated count Platelet 7.4 - fl Normal No Mar 18 mean 10.4 2016 volume on in 12:15 PM [Entitic source volume] data in Blood by Automated count Platelets 142 - 424 K/mm3 Normal No Mar 182016 [#/volume on in 12:15 PM ] in source Blood data Erythrocy 4.2 - 5.4 M/mm3 Low No Mar 18 addis inform2016 [#/volume on in 12:15 PM ] in source Amniotic data fluid Erythrocy 11.5 - % High No Mar 18 te 17.5 informati 2016 distribut on in 12:15 PM ion width source [Entitic data volume] by Automated count Leukocyte 4.8 - K/MM3 No No Mar 18 s 10.8 informati informati 2016 [#/volume on in on in 12:15 PM ] in source source Blood data data Comprehensive metabolic 2000 panel in Serum or Plasma Observa Value Referen Units Interpr Notes Date tion ce etation Range COMMENTS TO ACCOUNTS PAYABLES CLERK: TEMP Albumin/G 1.1 - 1.8 No Low No Mar 18 lobulin informati informati 2016 [Mass on in on in 12:15 PM ratio] in source source Serum or data data Plasma Albumin 3.4 - 5.0 gm/dL Low No Mar 18 [Mass/vol informati 2016 ume] in on in 12:15 PM Serum or source Plasma data Alkaline 46 - 116 U/L Normal No Mar 18 phosphata 2016 se on in 12:15 PM [Enzymati source c data activity/ volume] in Serum or Plasma Bilirubin 0.2 - 1.0 mg/dL Normal No Mar 18 .total inform2016 [Mass/vol on in 12:15 PM ume] in source Serum or data Plasma Urea 7 - 18 mg/dL No No Mar 18 nitrogen informati informati 2016 [Mass/vol on in on in 12:15 PM ume] in source source Serum or data data Plasma Calcium 8.5 - mg/dL Low No Mar 18 [Mass/vol 10.1 informati 2016 ume] in on in 12:15 PM Serum or source Plasma data Chloride 98 - 107 mmoL/L Normal No Mar 18 [Moles/vo informati 2016 lume] in on in 12:15 PM Serum or source Plasma data Carbon 21.0 - mmoL/L Normal No Mar 18 dioxide, 32.0 informati 2016 total on in 12:15 PM [Moles/vo source lume] in data Serum or Plasma Creatinin 0.55 - mg/dL Normal No Mar 18 e 1.02 informati 2016 [Mass/vol on in 12:15 PM ume] in source Serum or data Plasma Creatinin 50 - 200 ML/MIN Normal No Mar 18 e renal informati 2017 clearance on in 12:15 PM source predicted data by Cockcroft -Gault formula Estimated 59- ML/MIN No REFERENCE Mar 18 informati RANGE: 2017 glomerula on in >60 12:15 PM r source ML/MIN/1. filtratio data 73 SQUARE n rate METERSIf (GF this patient is -A merican, then multiply theresult by 1.210. Globulin 1.3 - 3.2 gm/dL Normal No Mar 18 [Mass/vol informati 2016 ume] in on in 12:15 PM Serum source data Glucose 74 - 106 mg/dL Normal No Mar 18 [Mass/vol informati 2016 ume] in on in 12:15 PM Serum or source Plasma data Potassium 3.5 - 5.1 mmoL/L Normal No Mar 182016 [Moles/vo on in 12:15 PM lume] in source Serum or data Plasma Sodium 136 - 145 mmoL/L Normal No Mar 18 [Moles/vo informati 2016 lume] in on in 12:15 PM Serum or source Plasma data Aspartate 15 - 37 U/L Low No Mar 182016 aminotran on in 12:15 PM sferase source [Enzymati data c activity/ volume] in Serum or Plasma Alanine 12 - 78 U/L Normal No Mar 18 aminotran 2016 sferase on in 12:15 PM [Enzymati source c data activity/ volume] in Serum or Plasma Protein 6.4 - 8.2 gm/dL Low No Mar 18 [Mass/vol informati 2016 ume] in on in 12:15 PM Serum or source Plasma data UPPER RESPIRATORY PANEL,PCR Observa Value Referen Units Interpr Notes Date tion ce etation Range COMMENTS TO ACCOUNTS PAYABLES CLERK: TEMP Adenovi NOT NOT No No No Mar 18 tiffany DNA DETECTE DETECTE informa informa informa 2017 D tion in tion in tion in 10:43 [Presen source source source AM ce] in data data data Unspeci fied specime n by Probe & target amplifi cation method Bordete NOT NOT No No No Mar 18 lla DETECTE DETECTE informa informa informa 2017 pertuss D tion in tion in tion in 10:43 is DNA source source source AM [Presen data data data ce] in Unspeci fied specime n by Probe & target amplifi cation method Chlamyd NOT NOT No No No Nov 15 ophila DETECTE DETECTE informa informa informa 2017 pneumon D tion in tion in tion in 10:43 iae DNA source source source AM data data data [Presen ce] in Unspeci fied specime n by Probe & target amplifi cation method SARS NOT NOT No No No Nov 15 coronav DETECTE DETECTE informa informa informa 2017 irus D tion in tion in tion in 10:43 RNA source source source AM [Presen data data data ce] in Unspeci fied specime n by Probe & target amplifi cation method Human NOT NOT No No No Nov 15 coronav DETECTE DETECTE informa informa informa 2017 irus D tion in tion in tion in 10:43 HKU1 source source source AM RNA data data data detecti on by SARS NOT NOT No No No Nov 15 coronav DETECTE DETECTE informa informa informa 2017 irus D tion in tion in tion in 10:43 RNA source source source AM [Presen data data data ce] in Unspeci fied specime n by Probe & target amplifi cation method SARS NOT NOT No No No Nov 15 coronav DETECTE DETECTE informa informa informa 2017 irus D tion in tion in tion in 10:43 RNA source source source AM [Presen data data data ce] in Unspeci fied specime n by Probe & target amplifi cation method Influen NOT NOT No No No Nov 15 za DETECTE DETECTE informa informa informa 2017 virus A D tion in tion in tion in 10:43 H3 RNA source source source AM data data data [Presen ce] in Unspeci fied specime n by Probe & target amplifi cation method Influen NOT NOT No No No Nov 15 za DETECTE DETECTE informa informa informa 2017 virus A D tion in tion in tion in 10:43 H1 RNA source source source AM data data data [Presen ce] in Isolate by Probe & target amplifi cation method Influen NOT NOT No No No Nov 15 za DETECTE DETECTE informa informa informa 2017 virus A D tion in tion in tion in 10:43 H1 RNA source source source AM data data data [Presen ce] in Unspeci fied specime n by Probe & target amplifi cation method Influen NOT NOT No No No Nov 15 za DETECTE DETECTE informa informa informa 2017 virus B D tion in tion in tion in 10:43 RNA source source source AM [Presen data data data ce] in Unspeci fied specime n by Probe & target amplifi cation method Influen NOT NOT No No No Nov 15 za DETECTE DETECTE informa informa informa 2017 virus A D tion in tion in tion in 10:43 RNA source source source AM [Presen data data data ce] in Unspeci fied specime n by Probe & target amplifi cation method Human NOT NOT No No No Nov 15 metapne DETECTE DETECTE informa informa informa 2017 umoviru D tion in tion in tion in 10:43 s Ag source source source AM [Presen data data data ce] in Unspeci fied specime n Mycopla NOT NOT No No No Nov 15 sma DETECTE DETECTE informa informa informa 2017 pneumon D tion in tion in tion in 10:43 iae DNA source source source AM data data data [Presen ce] in Unspeci fied specime n by Probe & target amplifi cation method Parainf NOT NOT No No No Nov 15 luenza DETECTE DETECTE informa informa informa 2017 virus 1 D tion in tion in tion in 10:43 RNA source source source AM [Presen data data data ce] in Unspeci fied specime n by Probe & target amplifi cation method Parainf NOT NOT No No No Nov 15 luenza DETECTE DETECTE informa informa informa 2017 virus 2 D tion in tion in tion in 10:43 RNA source source source AM [Presen data data data ce] in Unspeci fied specime n by Probe & target amplifi cation method Parainf NOT NOT No No No Nov 15 luenza DETECTE DETECTE informa informa informa 2017 virus 3 D tion in tion in tion in 10:43 RNA source source source AM [Presen data data data ce] in Unspeci fied specime n by Probe & target amplifi cation method Parainf NOT NOT No No No Nov 15 luenza DETECTE DETECTE informa informa informa 2017 virus 4 D tion in tion in tion in 10:43 RNA source source source AM [Presen data data data ce] in Isolate by Probe & target amplifi cation method Rhinovi NOT NOT No No No Nov 15 tiffany+Ent DETECTE DETECTE informa informa informa 2017 eroviru D tion in tion in tion in 10:43 s RNA source source source AM [Presen data data data ce] in Unspeci fied specime n by Probe & target amplifi cation method Respira NOT NOT No No No Nov 15 tory DETECTE DETECTE informa informa informa 2017 syncyti D tion in tion in tion in 10:43 al source source source AM virus data data data RNA [Presen ce] in Unspeci fied specime n by Probe & target amplifi cation method Urinalysis dipstick W Reflex Microscopic panel in Urine Observa Value Referen Units Interpr Notes Date tion ce etation Range COMMENTS TO ACCOUNTS PAYABLES CLERK: TEMP Collected by nurse? Y Hold specimen in OE? N Appeara CLEAR CLEAR No No No Nov 15 nce of informa informa informa 2017 Urine tion in tion in tion in 9:00 AM source source source data data data Bacteri OCC O No No No Nov 15 a informa informa informa 2016 [Presen tion in tion in tion in 9:00 AM ce] in source source source Urine data data data sedimen t by Light microsc opy Bilirub NEGATIV NEG No No No Nov 15 in E informa informa informa 2016 [Presen tion in tion in tion in 9:00 AM ce] in source source source Urine data data data by Test strip Erythro 3+ NEG No Abnorma No Nov 15 cytes informa l informa 2016 [Presen tion in tion in 9:00 AM ce] in source source Urine data data Color YELLOW YELLOW No No No Nov 15 of informa informa informa 2017 Urine tion in tion in tion in 9:00 AM source source source data data data Glucose NEG No No No Nov 15 [Mass/vol informati informati informati 2017 9:00 ume] in on in on in on in AM Urine by source source source Test data data data strip Ketones NEGATIV NEG mg/dL No No Mar 15 E informa informa 2016 [Presen tion in tion in 9:00 AM ce] in source source Urine data data by Automat ed test strip Mucus NEGATIV NEG No No No Mar 15 [Presen E informa informa informa 2016 ce] in tion in tion in tion in 9:00 AM Urine source source source sedimen data data data t by Light microsc opy Nitrite NEGATIV NEG No No No Mar 18 E informa informa informa 2016 [Presen tion in tion in tion in 9:00 AM ce] in source source source Urine data data data by Test strip pH of 5.0 - 8.5 No Normal No Mar 15 Urine informati informati 2017 9:00 on in on in AM source source data data Protein NEG mg/dL No No Mar 15 [Mass/vol informati informati 2016 9:00 ume] in on in on in AM Urine by source source Automated data data test strip Erythro 20-50 0 rbc/hpf No No Mar 15 cytes informa informa 2016 [Presen tion in tion in 9:00 AM ce] in source source Urine data data sedimen t by Light microsc opy Specific 1.005 - No Normal No Mar 15 gravity 1.030 informati informati 2017 9:00 of Urine on in on in AM source source data data Epithel 10-20 0 - 5 #/hpf No No Mar 18 ial informa informa 2017 cells.s tion in tion in 9:00 AM quamous source source data data [Presen ce] in Urine sedimen t by Microsc opy high power field Urobili 0.2 NEG E.U./dL No No Mar 15 nogen informa informa 2016 [Presen tion in tion in 9:00 AM ce] in source source Urine data data by Test strip Leukocyte O wbc/hpf No No Mar 15 s informati informati 2017 9:00 [#/volume on in on in AM ] in source source Urine data data Urinalysis dipstick W Reflex Microscopic panel in Urine Observa Value Referen Units Interpr Notes Date tion ce etation Range COMMENTS TO ACCOUNTS PAYABLES CLERK: TEMP Collected by nurse? Y Hold specimen in OE? N Appeara CLEAR CLEAR No No No Nov 15 nce of informa informa informa 2016 Urine tion in tion in tion in 9:00 AM source source source data data data Bilirub NEGATIV NEG No No No Mar 18 in E informa informa informa 2016 [Presen tion in tion in tion in 9:00 AM ce] in source source source Urine data data data by Test strip Erythro 3+ NEG No Abnorma No Mar 18 cytes informa l informa 2016 [Presen tion in tion in 9:00 AM ce] in source source Urine data data Color YELLOW YELLOW No No No Mar 18 of informa informa informa 2016 Urine tion in tion in tion in 9:00 AM source source source data data data Glucose NEG No No No Mar 18 [Mass/vol informati informati informati 2016 9:00 ume] in on in on in on in AM Urine by source source source Test data data data strip Ketones NEGATIV NEG mg/dL No No Mar 18 E informa informa 2016 [Presen tion in tion in 9:00 AM ce] in source source Urine data data by Automat ed test strip Mucus NEGATIV NEG No No No Mar 18 [Presen E informa informa informa 2016 ce] in tion in tion in tion in 9:00 AM Urine source source source sedimen data data data t by Light microsc opy Nitrite NEGATIV NEG No No No Mar 18 E informa informa informa 2016 [Presen tion in tion in tion in 9:00 AM ce] in source source source Urine data data data by Test strip pH of 5.0 - 8.5 No Normal No Mar 15 Urine informati informati 2016 9:00 on in on in AM source source data data Protein NEG mg/dL No No Mar 15 [Mass/vol informati informati 2016 9:00 ume] in on in on in AM Urine by source source Automated data data test strip Specific 1.005 - No Normal No Mar 15 gravity 1.030 informati informati 2016 9:00 of Urine on in on in AM source source data data Urobili 0.2 NEG E.U./dL No No Mar 15 nogen informa informa 2016 [Presen tion in tion in 9:00 AM ce] in source source Urine data data by Test strip Choriogonadotropin.beta subunit ( test) [Presence] in Serum or Plasma Observa Value Referen Units Interpr Notes Date tion ce etation Range Choriog 0 No mIU/ML No NON-PRE Mar 16 onadotr informa informa GNANT 2017 opin.be tion in tion in FEMALES 6:30 PM ta source source subunit data data REFEREN CE (pregna RANGE = ncy 0 - 6 test) mIU/mLG [Presen estatio ce] in nal Age Serum or HCG Plasma RANGE0. 2 WEEKS 5 - 501-2 WEEKS 50 - 5002-3 WEEKS 100 - 5,0003- 4 WEEKS 500 - 10,0004 -5 WEEKS 1,000 - 50,0005 -6 WEEKS 10,000 - 100,000 6-8 WEEKS 15,000 - 200,000 2-3 MONTHS 10,000 - 100,000 Basic metabolic panel in Blood Observa Value Referen Units Interpr Notes Date tion ce etation Range Urea 7 - 18 mg/dL Normal No Mar 16 nitrogen informati 2016 6:30 [Mass/vol on in PM ume] in source Serum or data Plasma Calcium 8.5 - mg/dL Normal No Mar 16 [Mass/vol 10.1 informati 2016 6:30 ume] in on in PM Serum or source Plasma data Chloride 98 - 107 mmoL/L Normal No Mar 16 [Moles/vo informati 2016 6:30 lume] in on in PM Serum or source Plasma data Carbon 21.0 - mmoL/L Normal No Mar 16 dioxide, 32.0 informati 2016 6:30 total on in PM [Moles/vo source lume] in data Serum or Plasma Creatinin 0.55 - mg/dL Normal No Mar 16 e 1.02 informati 2016 6:30 [Mass/vol on in PM ume] in source Serum or data Plasma Creatinin 50 - 200 ML/MIN Normal No Mar 16 e renal informati 2016 6:30 clearance on in PM source predicted data by Cockcroft -Gault formula Estimated 59- ML/MIN No REFERENCE Mar 16 informati RANGE: 2017 6:30 glomerula on in >60 PM r source ML/MIN/1. filtratio data 73 SQUARE n rate METERSIf (GF this patient is -A merican, then multiply theresult by 1.210. Glucose 74 - 106 mg/dL Normal No Mar 16 [Mass/vol informati 2016 6:30 ume] in on in PM Serum or source Plasma data Potassium 3.5 - 5.1 mmoL/L Normal Mar 16 informati 2016 6:30 [Moles/vo on in PM lume] in source Serum or data Plasma Sodium 136 - 145 mmoL/L Normal No Mar 16 [Moles/vo informati 2016 6:30 lume] in on in PM Serum or source Plasma data CBC W Auto Differential panel in Blood Observa Value Referen Units Interpr Notes Date tion ce etation Range Basophils 0 - 0.2 K/MM3 Normal No Mar 16 informati 2016 6:30 [#/volume on in PM ] in source Blood by data Automated count Basophils 0.1 - 2.0 % Normal No Mar 16 informati 2017 6:30 leukocyte on in PM s in source Blood by data Automated count Eosinophi 0.0 - 0.4 K/mm3 Normal No Mar 16 ls informati 2016 6:30 [#/volume on in PM ] in source Blood by data Automated count Eosinophi 0.1 - % Normal Mar 16 ls/100 12.0 informati 2017 6:30 leukocyte on in PM s in source Blood by data Automated count Granulocy 1.8 - 7.8 K/mm3 Normal No Mar 16 addis informati 2016 6:30 [#/volume on in PM ] in source Blood by data Automated count Granulocy 37.0 - % Normal No Mar 16 addis/100 80.0 informati 2016 6:30 leukocyte on in PM s in source Blood by data Automated count Hematocri 37.0 - % Low Mar 16 t [Volume 47.0 informati 2016 6:30 on in PM Fraction] source of Blood data Hemoglobi 12.2 - g/dL Low Mar 16 n 16.2 informati 2016 6:30 [Mass/vol on in PM ume] in source Blood data Lymphocyt 0.7 - 4.5 K/mm3 Normal No Mar 16 es informati 2016 6:30 [#/volume on in PM ] in source Unspecifi data ed specimen by Automated count Lymphocyt 10 - 50.0 % Normal Mar 16 es informati 2016 6:30 [#/volume on in PM ] in source Unspecifi data ed specimen by Automated count Erythrocy 27 - 31.2 pg Normal No Mar 16 te mean informati 2016 6:30 corpuscul on in PM ar source hemoglobi data n [Entitic mass] Erythrocy 31.8 - g/dl Low No Mar 16 te mean 35.4 informati 2016 6:30 corpuscul on in PM ar source hemoglobi data n concentra tion [Mass/vol ume] by Automated count Erythrocy 82.2 - fl Normal No Mar 16 te mean 97.8 informati 2016 6:30 corpuscul on in PM ar volume source [Entitic data volume] by Automated count Monocytes 0.1 - 1.0 K/mm3 Normal No Mar 16 informati 2016 6:30 [#/volume on in PM ] in source Blood by data Automated count Monocytes 1.7 - 9.3 % Normal No Mar 16 /100 informati 2017 6:30 leukocyte on in PM s in source Blood by data Automated count Platelet 7.4 - fl Normal No Mar 16 mean 10.4 informati 2016 6:30 volume on in PM [Entitic source volume] data in Blood by Automated count Platelets 142 - 424 K/mm3 No No Mar 16 informati informati 2016 6:30 [#/volume on in on in PM ] in source source Blood data data Erythrocy 4.2 - 5.4 M/mm3 Low No Mar 16 addis informati 2016 6:30 [#/volume on in PM ] in source Amniotic data fluid Erythrocy 11.5 - % High No Mar 16 te 17.5 informati 2016 6:30 distribut on in PM ion width source [Entitic data volume] by Automated count Leukocyte 4.8 - K/MM3 Normal No Mar 16 s 10.8 ati 2016 6:30 [#/volume on in PM ] in source Blood data Urinalysis dipstick W Reflex Microscopic panel in Urine Observa Value Referen Units Interpr Notes Date tion ce etation Range Appeara TURBID CLEAR No No No Feb 15 nce of informa informa informa 2016 Urine tion in tion in tion in [...] No No Feb 15 s informati informati 2016 4:40 [#/volume on in on in PM [...] No Feb 15 of informa informa informa 2016 Urine tion in tion in tion in [...] No No Nov 05 [Mass/vol informati informati 2017 4:30 ume] in on in on in PM Unspecifi source source ed data data specimen Methadone <300 ng/mL No No Nov 05 informati informati 2017 4:30 [Mass/vol on in on in PM ume] in source source Unspecifi data data ed specimen Opiates <300 ng/mL No No Nov 05 [Mass/vol informati informati 2017 4:30 ume] in on in on in PM Unspecifi source source ed data data specimen Phencycli <25 ng/mL No No Nov 05 dine informati informati 2017 4:30 [Mass/vol on in [...] Normal No Nov 05 [Mass/vol 10.1 informati 2017 4:05 ume] in on in PM Serum or source Plasma data Chloride 98 - 107 mmoL/L Normal No Nov 05 [Moles/vo informati 2016 4:05 lume] in on in PM Serum or source Plasma data Carbon 21.0 - mmoL/L Normal No Nov 05 dioxide, 32.0 informati 2017 4:05 total on in PM [Moles/vo source lume] in data Serum or Plasma Creatinin 0.55 - mg/dL Normal No Nov 05 e 1.02 informati 2017 4:05 [Mass/vol on in PM ume] in [...] reported as: FRAGMENTE DSpecimen received as fragments .10/15/16 1437:CELL ULAR MATER previousl y reported as: SEE [...] s. Calculu Note: . No No Specime Brian 2 s informa informa n 2017 analysi [...] aph will follow via compute r,mail, or director of restaurant operations deliver y. Comment Comment . No No Physici Oct 2 : informa informa an 2017 tion in tion in questio 7:20 PM source source ns data data regardi ng Calculi Analysi s contact [facility] at: . Weight of . mg No 10/15/16 Brian 2 Stone informati [id number] 2017 7:20 on in [...] tration .Perfor med at: BN - [facility] [id number] [place] [place], [place] [address] 61Lab Directo r: Ezekiel Clayton MD, Phone: [phone] Composi Comment . No No SPECIME Brian [...] Normal No Brian 2 e renal informati 2016 6:15 clearance on in PM source predicted data by Cockcroft -Gault formula Estimated 59- ML/MIN No REFERENCE Brian 2 informati RANGE: 2017 6:15 glomerula on in >60 PM r source ML/MIN/1. filtratio data 73 SQUARE n rate METERSIf (GF this patient is -A merican, then multiply theresult by 1.210. Globulin 1.3 - 3.2 gm/dL High No Brian 2 [Mass/vol informati 2016 6:15 ume] in on in PM Serum source data Glucose 74 - 106 mg/dL Normal No Brian 2 [Mass/vol informati 2016 6:15 ume] in on in PM Serum or source Plasma data Potassium 3.5 - 5.1 mmoL/L Normal No Brian 2 informati 2016 6:15 [Moles/vo on in PM lume] in source Serum or data Plasma Sodium 136 - 145 mmoL/L Normal No Brian 2 [Moles/vo informati 2016 6:15 lume] in on in PM Serum or source Plasma data Aspartate 15 - 37 U/L Low No Brian 2 informati 2016 6:15 aminotran on in PM sferase source [Enzymati data c activity/ volume] in Serum or Plasma Alanine 12 - 78 U/L Normal No Brian 2 aminotran informati 2016 6:15 sferase on in PM [Enzymati source c data activity/ volume] in Serum or Plasma Protein 6.4 - 8.2 gm/dL High No Brian 2 [Mass/vol informati 2016 6:15 ume] in on in PM Serum or source Plasma data Lipase [Enzymatic activity/volume] in Serum or Plasma Observa Value Referen Units Interpr Notes Date tion ce etation Range Lipase 73 - 393 U/L Normal No Brian 2 [Enzymati informati 2016 6:15 c on in PM activity/ source volume] data in Serum or Plasma CBC W Auto Differential panel in Blood Observa Value Referen Units Interpr Notes Date tion ce etation Range Basophils 0 - 0.2 K/MM3 Normal No Brian 2 informati 2017 6:15 [#/volume on in PM ] in source Blood by data Automated count Basophils 0.1 - 2.0 % Normal No Brian 2 /100 informati 2017 6:15 leukocyte on in PM s in source Blood by data Automated count Eosinophi 0.0 - 0.4 K/mm3 Normal No Brian 2 ls informati 2016 6:15 [#/volume on in PM ] in source Blood by data Automated count Eosinophi 0.1 - % Normal No Brian 2 ls/100 12.0 informati 2017 6:15 leukocyte on in PM s in source Blood by data Automated count Granulocy 1.8 - 7.8 K/mm3 Normal No Brian 2 addis informati 2017 6:15 [#/volume on in PM ] in source Blood by data Automated count Granulocy 37.0 - % Normal No Brian 2 addis/100 80.0 informati 2016 6:15 leukocyte on in PM s in source Blood by data Automated count Hematocri 37.0 - % Normal No Brian 2 t [Volume 47.0 informati 2017 6:15 on in PM Fraction] source of [...] % Normal No Brian 2 es informati 2016 6:15 [#/volume on in PM ] in source Unspecifi data ed specimen by Automated count Erythrocy 27 - 31.2 pg Low No Brian 2 te mean informati 2016 6:15 corpuscul on in PM ar source hemoglobi data n [Entitic mass] Erythrocy 31.8 - g/dl Low No Brian 2 te mean 35.4 informati 2017 6:15 corpuscul on in PM ar source hemoglobi data n concentra tion [Mass/vol ume] by Automated count Erythrocy 82.2 - fl Normal No Brian 2 te mean 97.8 informati 2016 6:15 corpuscul on in PM ar volume source [Entitic data volume] by Automated count Monocytes 0.1 - 1.0 K/mm3 Normal No Brian 2 informati 2016 6:15 [#/volume on in PM ] in source Blood by data Automated count Monocytes 1.7 - 9.3 % Normal No Brian 2 /100 informati 2016 6:15 leukocyte on in PM s in source Blood by data Automated count Platelet 7.4 - fl Low No Brian 2 mean 10.4 informati 2016 6:15 volume on in PM [Entitic source volume] data in Blood by Automated count Platelets 142 - 424 K/mm3 Normal No Brian 2 informati 2016 6:15 [#/volume on in PM ] in source Blood data Erythrocy 4.2 - 5.4 M/mm3 Normal No Brian 2 addis informati 2016 6:15 [#/volume on in PM ] in source Amniotic data fluid Erythrocy 11.5 - % Normal No Oct 2 te 17.5 informati 2016 6:15 distribut on in PM ion width [...] data Bacteri 2+ O No No No Oct 2 a informa informa informa 2016 [Presen tion [...] No Brian 2 of informa informa informa 2016 Urine tion in tion in tion in 5:20 PM source source source data data data Glucose NEG No No No Brian 2 [Mass/vol informati informati informati 2017 5:20 ume] in on in on in on in PM Urine by source source source Test data data data strip Ketones NEGATIV NEG mg/dL No No Brian 2 E informa informa 2016 [Presen tion in [...] No September 04 of informa informa informa 2016 Stone tion in tion in tion in [...] September 04 s : informa informa n 2016 analysi tion in tion in appears 9:20 PM s source source to [interp data data consist retatio of n] in cellula Stone r materia l and fibers embedde d withsev eral crystal s too small to identif y. Calculu Note: . No No Specime September 04 s informa informa n 2016 analysi tion in tion in quantit 9:20 [...] aph will follow via compute r,mail or director of restaurant operations deliver y. Disclai Comment . No No This September 04 amiar: informa informa test 2017 tion in tion in was 9:20 PM source source develop data data ed and its perform ance charact eristic sdeterm ined by [facility] . It has not been cleared orappro hortencia by the Food and Drug Adminis tration .Perfor med at: - [facility] [facility], [place], [place] [address] 61Lab Directo r: Ezekiel Clayton MD, Phone: [phone] Composi Comment . No No Percent September [...]
--- OUTSIDE RECORDS SUMMARY | 2017-03-30 16:45 | External Medical Summary Rpt ---
Author Author [employer], [employer] Address Unknown Phone Unavailable [...] Date tion ce etation Range COMMENTS TO MARINE HABITAT RESOURCE SPECIALIST: TEMP Basophils 0 - 0.2 K/MM3 Normal [...] Date tion ce etation Range COMMENTS TO MARINE HABITAT RESOURCE SPECIALIST: TEMP Albumin/G 1.1 - 1.8 No Low [...] Date tion ce etation Range COMMENTS TO MARINE HABITAT RESOURCE SPECIALIST: TEMP Adenovi NOT NOT No No No [...] Date tion ce etation Range COMMENTS TO MARINE HABITAT RESOURCE SPECIALIST: TEMP Collected by nurse? Y Hold specimen [...] Date tion ce etation Range COMMENTS TO MARINE HABITAT RESOURCE SPECIALIST: TEMP Collected by nurse? Y Hold specimen [...] aph will follow via compute r,mail, or voice coach deliver y. Comment Comment . No No [...] tration .Perfor med at: BN - [facility] [id number] [place], [place] [address] 61Lab Directo r: Ezekiel Clayton MD, Phone: [phone] Composi Comment . No No SPECIME Brian [...] ng Calculi Analysi s contact [facility] at: [phone]. Weight of . mg No No September 04 Stone informati informati 2017 9:20 on in on in PM source source data data Please Comment . No No Calculi September 04 note: informa informa report 2017 tion in tion in with 9:20 PM source source photogr data data aph will follow via compute r,mail or voice coach deliver y. Disclai Comment . No No This September 04 amira: informa informa test 2017 tion in tion in was 9:20 PM source source develop data data ed and its perform ance charact eristic sdeterm ined by [facility] . It has not been cleared orappro hortencia by the Food and Drug Adminis tration .Perfor med at: - [facility] [facility], [place], [place] [address] 61Lab Directo r: Ezekiel Clayton MD, Phone: [phone] Composi Comment . No No Percent September [...]
[2017-03-30] MEDS ORDERED: ETHINYL ESTRADI1 TA1 PO (17:07)
--- NOTE | 2017-03-30 17:59 | Urgent Treatment Center Report ---
History of Present Issue Date/Time Seen by Provider 03/30/17 1750 Visit Reason Pt arrived:Walked Presenting Problem:PT COMPLAINS OF SHARP SHOOTING PAIN IN PELVIC AREA. SEEN BY DR FOY EARLIER TODAY. Location if Accident: Onset of symptoms date/time:/ or onset unknown for:MEDICAL HX UNKNOWN Have you (or family members/close friends) recently traveled outside the [place]? N If Yes, where/when: Have you had exposure to infectious disease within the past month? TB? Other? 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 BREATHING 03/23/17) lamotrigine (From LAMICTAL) (03/23/17) morphine (03/23/17) Home Medications Active Scripts KETOROLAC TROMETHAMINE (TORADOL 10MG) 10 MG PO Q6HP PRN BREAKTHROUGH MOD TO SEV PAIN #21 TAB Prov: 03/18/17 Hydromorphone Hcl (Hydromorphone) 2 MG PO Q4HP PRN MODERATE TO SEVERE PAIN #12 TAB Prov: 03/18/17 Reported Medications Escitalopram Oxalate (Lexapro 10MG) 10 MG PO DAILY SERTRALINE HYDROCHLORIDE (Zoloft 100MG) 200 MG PO DAILY Clonazepam (Clonazepam 1MG) 1 MG PO DAILY NORETHINDRONE AC-ETH ESTRADIOL (Loestrin 21 1-20 Tablet) 1 TAB PO DAILY NORETHINDRONE AC-ETH ESTRADIOL (Norethind-Eth Estrad 1-0.02 MG) 1 TAB PO DAILY #21 History Medical History General CAD? No Angina: No ND: No Hypertension? No Hyperlipidemia? No CHF? No DVT? No PE? No COPD? No Asthma? No Anemia? No GERD? No Gastric ulcers? No GI Bleed? No Hernia? No Thyroid Problems? No Hypothyroidism? No CVA? No Seizures? No Diabetes? No Renal Insuffiency? No UTI? Yes Stones? Yes BPH? No GB Disease: No Nephritic Syndrome? No Asplenia? No Hepatitis? No Sickle Cell Disease? No Arthritis? No Migraines? No Cataracts? No Glaucoma? No MRSA? No HIV? No TB? No Anxiety? Yes Depression? Yes Cancer? No More? 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 Patient does not recall any prior cystoscopies or ureteroscopy Immunization HX DT/Tetanus Unknown Flu 2017-18FSN Pneumonia Refuses Surgical Hx Previous Surgery?Y LITHOTRIPSY X2 LEFT PARTIAL KNEE T&A Family History Family HX Diabetes No CAD No Hypertension No Hyperlipidemia No Cancer No TB No Social History Smoking Hx Smoker: Never Smoker Tobacco: No Packs/day N/A Alcohol Alcohol: No Review of Systems All Other Systems Reviewed and Negative Gastrointestinal other Comment States that she has been having shooting pain in her pelvic area State that she was seen by Dr Foy earlier today and advised that if pain continued to get worse State that she did not have pelvic exam that she did not want him to perform one because she was afraid that it would be painful Physical Exam Vital Signs Vital Signs Date Time Temp Pulse Resp B/P Pulse O2 O2 Flow FiO2 Ox Delivery Rate 03/30 1846 98.2 99 20 128/99 98 03/30 1844 20 03/30 1704 98.2 99 20 132/101 98 General Appearance normal appearance, WD/WN, no apparent distress Respiratory Status Yes: trachea midline, chest symmetrical, non tender chest. No: respiratory distress. Lung Sounds bilateral: normal breath sounds, lungs clear. Cardiovascular normal exam, regular rate/rhythm, no peripheral edema Gastrointestinal normal bowel sounds, normal exam, soft, no guarding, no rebound Neurologic alert, normal exam, oriented x 3 Comments Patient laying on exam table on her side, state that she seen Dr Foy earlier today and he told her that if her pain got worse to come back to ER/UTC States that she didn't take a Tordol shot in the office and that she took a Tordol po when she got home but it has not helped so she came back to be seen Medical Decision Making LABS/Meds/Orders Pt receiving controlled substance in ED? No Results/Orders Current Medication Orders Sig/Emerald Start time Last Medication Dose Route Stop Time Status Admin Ketorolac 60 MG ONCE ONE 03/30 1845 DC 03/30 Tromethamine IM 03/30 Ketorolac 0 .STK-MED ONE 03/30 1842 DC Tromethamine .ROUTE Orders Procedure Date/time Status US PELVIS-TRANSVAGINAL ONLY 03/30 1755 Active Progress [facility] Progress Notes Comment Ultrasound complete spoke with tech advised had large cyst in left ovary, no free fluid noted Consulted with Dr Berman and advised to give her Tordol shot, dc home and advise to continue taking Tordol as prescribed by Dr Lambert and Follow up with Dr Foy in the morning for further evaluation and treatment or return if pain worsened tonight Departure Departure Time of Disposition 1840 Disposition DC Home or Self Care(routine) Clinical Impression Primary Impression: Ovarian cyst Qualifiers: Laterality: left Qualified Code: N83.202 - Unspecified ovarian cyst , left side Condition STABLE Referrals Fausto ZHAO,Mulugeta (Family): Tomorrow-Call Office Gideon ZHAO,Fredis Lai: Tomorrow-Call Office Follow up in office tomorrow call in the morning for appointment Patient Instructions DI for Ovarian Cyst, Ovarian Cyst Additional Instructions Continue to take Tordol prescribed by family doctor for pain Call Dr Zepeda office in the morning and make appointment for follow up on Ultra Sound that was completed tonight Return if needed Take warm bath will help with pain and help you to relax Discharge Counseling Counseled pt/family regarding diagnosis, test results, medications/RX, home care, follow up needs at 1852
[2017-03-30 18:46] VITALS: BP 128/99
--- NOTE | 2017-03-30 19:47 | RADIOLOGY REPORT PS360 ---
US PELVIS-TRANSVAGINAL ONLY HISTORY: None right-sided pelvic pain pain ORDERING PHYSICIAN: PENNY ADIRAN APRN PATIENT AGE: 26 years COMPARISON: None FINDINGS: UTERUS: The uterus measures 6 x 3 x 5 cm. Combined endometrial thickness is 7 mm. The uterus has an unremarkable appearance RIGHT OVARY: Difficult to visualize. 1.5 x 1 cm. LEFT OVARY: 3.4 x 2.2 cm and contains a 2.8 cm cyst CUL-DE-SAC FLUID: No cul-de-sac fluid apparent OTHER FINDINGS: None IMPRESSION: 2.8 cm left ovarian cyst
--- NOTE | 2017-03-30 19:47 | RADIOLOGY REPORT PS360 ---
US PELVIS-TRANSVAGINAL ONLY HISTORY: None right-sided pelvic pain pain ORDERING PHYSICIAN: PENNY ADRIAN APRN PATIENT AGE: 26 years COMPARISON: None FINDINGS: UTERUS: The uterus measures 6 x 3 x 5 cm. Combined endometrial thickness is 7 mm. The uterus has an unremarkable appearance RIGHT OVARY: Difficult to visualize. 1.5 x 1 cm. LEFT OVARY: 3.4 x 2.2 cm and contains a 2.8 cm cyst CUL-DE-SAC FLUID: No cul-de-sac fluid apparent OTHER FINDINGS: None IMPRESSION: 2.8 cm left ovarian cyst
== END 2017-03-30 18:49 | disposition home or self-care (01) ==
LOC: UTC 16:27
DX: N83.202 Unspecified ovarian cyst, left side (principal); F41.8 Other specified anxiety disorders; Z88.6 Allergy status to analgesic agent

== ENCOUNTER → 2017-04-08 | Outpatient (CLI) | payer BC, MEDICAID ==
[~2017-04-08] MED LIST changes: +ETHINYL ESTRADI1 TA1 PO
--- NOTE | 2017-04-09 05:13 | RADIOLOGY REPORT PS360 ---
CHEST(2 VIEWS-NOT PORTABLE) HISTORY: COUGH ORDERING PHYSICIAN: Mulugeta Lambert MD PATIENT AGE: 26 years COMPARISON: 03/18/2017 FINDINGS: The cardiomediastinal silhouette and pulmonary vascularity are within normal limits. The lungs are clear without infiltrates, suspicious nodules, or pleural effusions. No acute bony abnormalities. Previously noted right perihilar pneumonia is no longer apparent. PICC line is been removed IMPRESSION: Negative chest, no acute finding
== END ==
LOC: RAD 17:10
DX: R05 Cough (principal)